=== PATIENT | male | born 1935 | race Caucasian/White ===

== ENCOUNTER 2023-11-16 13:39 | Outpatient (OUT) | payer MEDICARE, MEDICAID, SELFPAY ==
--- NOTE | 2023-11-16 14:33 | CA_ITS ---
Patient Name: JAY ASH MR#: [id number] : 1935 Exam Date: 11/16/2023 Ordering Doctor: DR Cholo Nicolas . ECHOCARDIOGRAM REPORT PROCEDURE: CA ECHO DOPPLER COMPLETE INDICATIONS: CAD, [place] with PTCA, hypertension COMPARISON: None. DESCRIPTION: COMPLETE ECHOCARDIOGRAM Real-time transthoracic echocardiography with 2D, M-mode, spectral and color flow Doppler performed. QUALITY: Technical quality was good. 71 , 219#, BSA 2.19 m2 LEFT VENTRICLE: Normal chamber size. Mild concentric left ventricular hypertrophy. Normal systolic function. LV EF: Normal left ventricular ejection fraction, (65%). DIASTOLIC: Mild diastolic dysfunction. ATRIAL SEPTUM: Visually appears intact LEFT ATRIUM: Mildly dilated. RIGHT ATRIUM: Normal chamber size. RIGHT VENTRICLE: Normal chamber size. Normal right ventricular systolic function. TRICUSPID VALVE: Normal mobility and thickness. No stenosis with trivial regurgitation. No evidence of pulmonary hypertension. RVSP 25 mmHg MITRAL VALVE: Normal mobility and thickness. No evidence of mitral valve stenosis. Mild mitral annular calcification. No mitral regurgitation. AORTIC VALVE: Normal trileaflet appearance. No visible sclerosis. Normal leaflet mobility. No evidence of aortic valve stenosis. No aortic regurgitation. AORTIC ROOT: Normal diameter and appearance. PULMONIC VALVE: Normal thickness and mobility. No stenosis. No regurgitation. PERICARDIUM: No evidence of pericardial effusion. IVC: Not well visualized. PLEURA: CONCLUSION: 1. Mild concentric left ventricular hypertrophy with normal systolic function. LVEF is 65%. 2. Normal right ventricular size and systolic function. 3. No significant valvular dysfunction. 4. Mild diastolic dysfunction. 5. Normal right-sided pressures. Adult Echocardiography Procedure Report Left Ventricle LVEDD (3.7 - 5.6 cm): 4.79 cm LVESD (2.2 - 4.0 cm): 2.51 cm LVIVS thickness (0.6 - 1.2 cm): 1.28 cm LVPW thickness (0.5 - 1.0 cm): 1.22 cm LVOT Max Gradient: 3 mm[Hg] Peak Velocity (LVOT): 92.50 cm/s Mean Velocity (LVOT): 58.20 cm/s LVOT Diameter 2.20 cm Left Ventricular Ejection Fraction: 65% Left Atrium LA Volume Index (2D A2C): 92784 mm3 Left Atrium Systolic Dimension: 4.40 cm Mitral Valve MV E to A Ratio: 0.60 Mitral Valve A-Wave Peak Velocity: 126.00 cm/s Mitral Valve E-Wave Peak Velocity: 78.00 cm/s Cardiovascular Orifice Area: 1.30 cm2 Right Ventricle Aorta AO Root Diam: 3.20 cm Aortic Valve AoV Area (Peak Kd): 3.41 cm2 AoV Area (VTI): 3.22 cm2 Peak Velocity(Antegrade Flow): 103.00 cm/s Peak Gradient(Antegrade Flow): 4 mm[Hg] Mean Velocity(Antegrade Flow): 68.90 cm/s Mean Gradient(Antegrade Flow): 2 mm[Hg] Velocity Time Integral: 24.80 cm Tricuspid Valve Peak Velocity (Regurgitant Flow): 235.00 cm/s Peak Velocity: 64.20 cm/s Pulmonic Valve Peak Velocity: 116.00 cm/s, 113.00 cm/s Peak Gradient: 5 mm[Hg] Right Atrium Dictated by: Hilton Hebert M.D. on 11/16/2023 at 18:03 Approved by: Hilton Hebert M.D. on 11/16/2023 at 18:05
== END 2023-11-16 13:40 | disposition home or self-care (01) ==
LOC: CARD 13:39
PROVIDERS: PCP Family Medicine; Visit Provider Family Medicine
DX: I25.10 Atherosclerotic heart disease of native coronary artery without angina pectoris (principal)
CPT/HCPCS: 93306

== ENCOUNTER 2024-03-30 17:24 | Emergency (ER) | payer MEDICARE, SELFPAY ==
[2024-03-30 17:32] VITALS: BP 180/86; PULSE 76; TEMP 36.7; O2SAT 99; BMI 29.2
--- OUTSIDE RECORDS SUMMARY | 2024-03-30 17:40 | XMS_ITS | CCD ---
Author Organization [facility] Care Team Providers Care Executive Pastry Chef Name Role Phone Moon Harper Unavailable Unavailable Unavailable Moon aHrper Primary Care Physician Lenny Armando Unavailable Ada Barnes Unavailable MD Moon Harper Primary Care Provider TYLER Starks Other Provider Unavailable DO Rowena Swanson Other Provider MD Alka Costello Other Provider MD Macario Corona Other Provider MD Sadie Parr Other Provider MD Robert Dav[place] Other Provider RAMAN Bill Other Provider MD Naila Modi Other Provider MD Ludivina Solitarioammed [facility] Other Provider MD Charity Mg Other Provider MD Shobha Junior Admit Provider MD Patsy Smith Attending Provider MD Christ Ansari Emergency Provider [phone] MD Lidia Borja Admit Provider MD Lidia Borja Attending Provider MD Moon Harper Primary Care Provider [phone] MD Macario Corona Attending Provider MD Moon Harper Primary Care Provider [phone] MD Macario Corona Attending Provider MEREDITH ., DR MUSTAFA Consulting Unavailable HOY ., DR MUSTAFA Attending Unavailable HOY ., DR MUSTAFA Admitting Unavailable HOY ., DR MUSTAFA Primary Care Unavailable HOY ., DR MUSTAFA Primary Care Unavailable HOY ., DR MUSTAFA Consulting Unavailable HOY ., DR MUSTAFA Attending Unavailable HOY ., DR MUSTAFA Admitting Unavailable HOY ., DR MSUTAFA Primary Care Unavailable HOY ., DR MUSTAFA Consulting Unavailable HOY ., DR MUSTAFA Attending Unavailable HOY ., DR MUSTAFA Admitting Unavailable HOY ., DR MUSTAFA Primary Care Unavailable HOY ., DR MUSTAFA Attending Unavailable HOY ., DR MUSTAFA Admitting Unavailable HOY ., DR MUSTAFA Primary Care Unavailable HAY ., DR KHAN Admitting Unavailable HAY ., DR KHAN Consulting Unavailable HAY ., DR KHAN Attending Unavailable MARTY KHAN Consulting Unavailable MACARIO LA Consulting Unavailable MONICO GREEN Consulting Unavailable MACY STUBBS Admitting Unavailable MACY STUBBS Attending Unavailable ROGER ., OCTAVIO SAUCEDO Consulting Unavailkingston e HOY ., DR MUSTAFA Primary Care Unavailable NAN LYNNE Consulting Unavailable HOY ., DR MUSTAFA Primary Care Unavailable RIOS ., DR ANTHONY Vital Admitting Unavailable RIOS ., DR ANTHONY Vital Consulting Unavailable RIOS ., DR ANTHONY Vital Attending Unavailable HOY ., DR MUSTAFA Primary Care Unavailable HOY ., DR MUSTAFA Consulting Unavailable HOY ., DR MUSTAFA Attending Unavailable HOY ., DR MUSTAFA Admsamy Unavailable HOY ., DR MUSTAFA Primary Care Unavailable HOY ., DR MUSTAFA Consulting Unavailable HOY ., DR MUSTAFA Attending Unavailable FRANCOISY ., DR MUSTAFA Admsamy Unavailable MD Moon Harper Primary Care Provider [phone] MD Macario Corona Attending Provider MD Moon Harper Primary Care Provider [phone] MD Macario Corona Attending Provider MD Moon Harper Primary Care Provider [phone] MD Macario Corona Attending Provider Meredith, Dr. Moon Polo Primary Care Unavail able Meredith, Dr. Moon Polo Primary Care Unavail able Meredith, Dr. Moon Polo Primary Care Unavail able Meredith, Dr. Moon Polo Primary Care Unavail able Meredith, Dr. Moon Polo Primary Care Unavail able Meredith, Dr. Moon Polo Primary Care Unavail able Meredith, Dr. Moon Polo Primary Care Unavail able Schilling, Gisele Attending Unavailable Schilling, Gisele Referring Unavailable Meredith, Dr. Moon Polo Primary Care Unavail able Schilling, Gisele Attending Unavailable Schilling, Gisele Referring Unavailable Meredith, Dr. Moon Polo Primary Care Unavail able Schilling, Gisele Attending Unavailable Schilling, Gisele Referring Unavailable Meredith, Dr. Moon Polo Primary Care Unavail able Meredith, Dr. Moon Polo Primary Care Unavail able Meredith, Dr. Moon Polo Primary [facility] Unavail able MD Moon Harper Primary Care Provider MD Macario Corona Attending Provider Moon Harper MD Primary Care Provider MACARIO SWANSON Attending Unavailable MOON HARPER Primary Care Unavailable MD Moon Harper Primary Care Provider [phone] MD Macario Corona Attending Provider MD Moon Harper Primary Care Provider [phone] MD Macario Corona Attending Provider MACARIO SWANSON Referring Unavailable MOON HARPER Primary Care Unavailable Macario Corona Admitting Unavail able Hoy, Moon M Primary Care Unavailable Macario Corona Attending Unavail able Macario Corona Admitting Unavail able Hoy, Moon M Primary Care Unavailable Macario Corona Attending Unavail able Macario Corona Admitting Unavail able Hoy, Moon M Primary Care Unavailable Macario Corona Attending Unavail able Macario Corona Admitting Unavail able Hoy, Moon M Primary Care Unavailable Macario Corona Attending Unavail able Macario Corona Admitting Unavail able Hoy, Moon M Primary Care Unavailable Macario Corona Attending Unavail able Macario Corona Attending Unavail able Moon Harper M Primary Care Unavailable KendallzacknMacario Admitting Unavail able Rohit Harperlas M Primary Care Unavailable Macario Corona Admitting Unavail able Macario Corona Attending Unavail able KendalluinnMacario Admitting Unavail able Moon Harper M Primary Care Unavailable Macario Corona Attending Unavail able TayanMacario Admitting Unavail able Rohit Harperlas M Primary Care Unavailable Macario Corona Attending Unavail able TayanMacario Admitting Unavail able Moon Harper M Primary Care Unavailable Macario Corona Attending Unavail able Allergies Allergy Classification Reported Allergen(s) Allergy Type Date of Onset Reaction(s) Facility (20 sources) Ciprofloxacin; Translations: [Cipro] Drug Allergy 3 [facility] (20 sources) Penicillins; Translations: [Penicillins] Allergy to drug (finding) 2 Rash, Unknown Reaction [facility] (4 sources) Bee/Wasp/Ant venom Drug allergy hives, Unknown [facility] [employer] Other (1 source) Isopropyl Alcohol; Translations: [isopropyl alcohol topical] Drug Allergy intolerance [facility] Comment on above: Pt recovering alcoho lic. (5 sources) Penicillin; Translations: [penicillin] Drug Allergy hives, Unknown [employer] Other (3 sources) Alcohol Propensity to adverse reactions Unknown [facility] [employer] Other (13 sources) bee venom protein (honey bee); Translations: [bee venom protein (honey bee)] Allergy to substance 2 Swelling of Lip/Tongue/Thr oat [facility] (3 sources) Penicillins Drug Allergy 3 [facility] Work Phone: (3 sources) Ciprofloxacin; Translations: [CIPROFLOXACIN] Drug Allergy 2 [facility] 3 Repository (1 source) Penicillins Drug allergy (disorder) 2 [facility] Repository (1 source) alcohol Drug allergy (disorder) 2 [facility] Repository Medications Current Medications Medication Drug Class(es) Dates Sig (Normalized) Sig (Original) acetaminophen 500 mg oral tablet (11 sources) Start: 06-06-2019 take 500 mg by mouth three times daily as needed for pain acetaminophen 500 mg, Oral, TID, PRN as needed for pain, Refills(s) 0 Start Date: 06/06/19 Status: Ordered acetaminophen (T ylenol Extra Strength) 500 mg tablet TAKE 1 TABLET EVERY 4 TO 6 HOURS NEEDED. 0 Active amLODIPine Benzoate (1 source) amLODIPine Benzo ate Active apixaban 5 mg oral tablet (15 sources) Factor Xa Inhibitor Start: 05-08-20 End: 08-11-20 23 take 1 tablet by mouth twice daily Apixaban (Eliquis) 5 mg Tablet Active 5 MG PO Twice daily May 07, 2022 11:00pm Aspir-81 (3 sources) Aspir-81 Active atorvastatin 40 mg oral tablet (20 sources) HMG-CoA Reductase Inhibitor Start: 10-02-20 take 1 tablet by mouth once daily at bedtime atorvastatin (Lipitor) 40 mg tablet Take 1 tablet (40 mg) by mouth once daily at bedtime. 0 10/02/2021 Active celecoxib 200 mg oral capsule (20 sources) Nonsteroidal Anti-inflammatory Drug Start: 05-03-20 take 1 capsule by mouth once daily celecoxib (CeleBREX) 200 mg capsule Take 1 capsule (200 mg) by mouth once daily. 0 01/12/2022 Active Celecoxib 200 MG Oral Capsule Quantity: 0 Refills: 0 Ordered: 31-Oct-2021 DO Active cetirizine hydrochloride 10 mg oral tablet (20 sources) Histamine-1 Receptor Antagonist Start: 06-06-2019 take 1 tablet by mouth once daily Cetirizine (Zyrtec) 10 mg Tablet Active 10 MG PO Daily April 10, 2022 11:00pm take 1 capsule by mouth once noa ly ZyrTEC Allergy 10 MG 1 capsule Orally Once a day Active Cetirizine HCl - 10 MG Oral Tablet Quantity: 0 Refills: 0 Ordered: 31-Oct-2021 DO Active clopidogrel 75 mg oral tablet (20 sources) P2Y12 Platelet Inhibitor Start: 10-02-2021 End: 08-11-2023 take 75 mg by mouth once daily Clopidogrel Active 75 MG PO Daily May 07, 2022 11:00pm Dextromethorphan (1 source) Uncompetitive V-cjbjkz-E-aspartat e Receptor Antagonist, Sigma-1 Agonist Start: 11-01-2019 dextromethorphan 20 mg/15 mL oral syrup 20 mg = 15 mL, Oral, prn cough Start Date: 11/01/19 Status: Ordered Econazole / Triamcinolone (11 sources) Azole Antifungal, Corticosteroid Start: 04-11-2022 Econazole-Triamcinol one Active 0 .ROUTE .COMPLEX April 10, 2022 11:00pm 1%-0.1% combo pack, 1 package topically per package directions PRN Start: 04-11-2022 Econazole-Tria mcinolone Active 0 .ROUTE .COMPLEX April 11, 2022 12:00am 1%-0.1% combo pack, 1 package topically per package directions PRN EPINEPHrine (20 sources) alpha-Adrenergic Agonist, beta-Adrenergic Agonist, Catecholamine Start: 06-06-2019 Epipen use as directed, Refills(s) 0 Start Date: 06/06/19 Status: Ordered EPINEPHrine 0.3 mg/0.3 mL injection syringe USE DIRECTED. 0 Active EpiPen Active furosemide 20 mg oral tablet (20 sources) Loop Diuretic Start: 05-04-2022 End: 08-10-2023 take 1 tablet by mouth once daily furosemide (Lasix) 20 mg tablet Take 1 tablet (20 mg) by mouth once daily. 0 05/04/2022 Active gabapentin 100 mg oral capsule (1 source) Anti-epileptic Agent Start: 12-12-2022 End: 08-11-2023 gabapentin (Neurontin) 100 mg capsule Lactobacillus (1 source) Lactobacillus Ac tive lactobacillus acidophilus 460 mg oral capsule (20 sources) Start: 04-11-2022 Lactobacillus Acidophilus (Florajen Acidophilus) 20 billion cell Capsule Active 100 MG PO Daily April 10, 2022 11:00pm Start: 11-01-2019 take 1 capsule by mo uth once daily Florajen oral capsule 1 cap(s), Oral, Daily Start Date: 11/01/19 Status: Ordered take 1 capsule by mo uth once daily Florajen Acidophilus Oral Capsule TAKE 1 CAPSULE Daily Quantity: 0 Refills: 0 Ordered: 12-May-2022 DO Active lisinopril 40 mg oral tablet (20 sources) Angiotensin Converting Enzyme Inhibitor Start: 05-03-2019 End: 08-11-2023 take 40 mg by mouth once daily Lisinopril Active 40 MG PO Daily May 02, 2019 11:00pm mupirocin 0.02 mg/mg topical ointment (15 sources) RNA Synthetase Inhibitor Antibacterial Start: 04-03-2022 Mupirocin 2 % 1 application Externally Three times a day for 7 days Mar, Active Start: 07-07-2021 Mupirocin 2 % External Ointment APPLY TO THE AFFECTED AREA(S) with a Q-TIP TWICE DAILY FOR 7 DAYS Quantity: 22 Refills: 0 Ordered: 07-Jul-2021 DO Start : 07-Jul-2021 Active Start: 07-07-2021 Mupirocin 2 % 1 application with Qtip to affected area Externally 2 times a day for 7 days Jun, Active nitroglycerin 0.4 mg sublingual tablet (7 sources) Nitrate Vasodilator nitroglyceri n (Nitrostat) 0.[address] 1 tablet (0.4 mg) under the tongue every 5 minutes if needed for chest pain. 0 Active omeprazole 20 mg oral tablet (20 sources) Proton Pump Inhibitor Start: 9 take 20 mg by mouth once daily Prilosec 20 mg, Oral, Daily, Refills(s) 0 Start Date: 06/06/19 Status: Ordered take 1 capsule by mouth once noa ly omeprazole (PriLOSEC) [address] capsule Take 1 capsule (20 mg) by mouth once daily. 0 Active Omeprazole Magne sium 20 MG Oral Tablet Delayed Release Quantity: 0 Refills: 0 Ordered: 31-Oct-2021 DO Active Omeprazole Magnesium (Prilosec Otc) 20 mg Tablet,Delayed Release (Dr/Ec) (11 sources) Start: 05-03-2019 take 1 tablet by mouth once daily Omeprazole Magnesium (Prilosec Otc) 20 mg Tablet,Delayed Release (Dr/Ec) Active 20 MG PO Daily May 02, 2019 11:00pm Start: 05-03-2019 take 1 tablet by jamir th once daily Omeprazole Magnesium (Prilosec Otc) 20 mg Tablet,Delayed Release (Dr/Ec) Active 20 MG PO Daily May 03, 2019 12:00am sucralfate 1000 mg oral tablet (3 sources) Aluminum Complex Start: 08-11-2023 End: 08-10-2024 take 1 tablet by mouth once daily sucralfate (Carafate) 1 gram tablet Indications: Carotid atherosclerosis, unspecified laterality Take 1 tablet (1 g) by mouth once daily. 90 tablet 3 08/11/2023 08/10/2024 Active valsartan 320 mg oral tablet (12 sources) Angiotensin 2 Receptor Shaun Start: 08-20-2023 take 1 tablet by mouth once daily valsartan (Diovan) 320 mg tablet Indications: Benign essential hypertension Take 1 tablet (320 mg) by mouth once daily. 90 tablet 0 08/20/2023 Active Start: 08-11-2023 take 1 tablet by jamir th once daily valsartan (Diovan) 320 mg tablet Indications: Benign essential hypertension Take 1 tablet (320 mg) by mouth once daily. 7 tablet 0 08/11/2023 Active Start: 05-21-2022 End: 08-11-2023 take 1 tablet by mouth once daily valsartan (Diovan) 320 mg tablet Take 1 tablet (320 mg) by mouth once daily. 0 05/21/2022 08/11/2023 Discontinued (Reorder) vitamin b12 1 mg/ml injectable solution (20 sources) Vitamin B12 Start: 08-05-2021 inject 1 mL by intramuscular injection every month cyanocobalamin (Vitamin B-12) 1,000 mcg/mL injection INJECT 1 (ONE) ml INTRAMUSCULARLY once a month 0 08/05/2021 Active Start: 05-03-2019 inject 1000 ug by in tramuscular injection every month Cyanocobalamin (Vitamin B-12) Active 1000 MCG IM every month May 02, 2019 11:00pm Cyanocobalamin A ctive Completed/Discontinued Medications Medication Drug Class(es) Dates Sig (Normalized) Sig (Original) amLODIPine 10 mg oral tablet (20 sources) Dihydropyridine Calcium Channel Shaun Start: 05-26-2021 End: 08-11-2023 take 1 tablet by mouth once daily amLODIPine Besylate 10 MG Oral Tablet TAKE 1 TABLET DAILY DIRECTED. Quantity: 30 Refills: 11 Ordered: 01-Jan-2022 Addy Alas MD Start : 26-May-2021 Active Start: 09-26-2020 take 1 tablet by jamir th once daily amLODIPine Besylate 5 MG Oral Tablet TAKE 1 TABLET BY MOUTH ONCE DAILY Quantity: 30 Refills: 0 Ordered: 16-Oct-2021 DO Start : 26-May-2021 Active Start: 05-03-2019 take 10 mg by mouth once daily Amlodipine Active 10 MG PO Daily May 02, 2019 11:00pm [facility] Active aspirin 81 mg delayed release oral tablet (20 sources) Platelet Aggregation Inhibitor, Nonsteroidal Anti-inflammatory Drug Start: 12-09-2022 take 1 tablet by mouth once daily Aspirin 81 MG Oral Tablet Delayed Release TAKE 1 TABLET DAILY. Quantity: 90 Refills: 3 Ordered: 09-Dec-2022 Macario Swanson DO Start : 09-Dec-2022 Active Start: 04-12-2022 take 1 tablet by jamir th once daily Aspirin (Children's Aspirin) 81 mg Tablet,Chewable Active 81 MG PO Daily April 11, 2022 11:00pm Start: 12-25-2021 take 1 tablet by jamir th once daily aspirin 81 mg Oral EC Tab 81 mg = 1 tab(s), Oral, Daily, Refills(s) 0 Start Date: 12/25/21 Status: Ordered Aspirin 81 MG Or al Tablet Delayed Release Quantity: 0 Refills: 0 Ordered: 31-Oct-2021 DO Active betamethasone 0.5 mg/ml / clotrimazole 10 mg/ml topical lotion (12 sources) Azole Antifungal, Corticosteroid Start: 09-08-2021 Clotrimazole-Betamethasone 1-0.05 % External Lotion APPLY TO THE AFFECTED AREA(S) TWICE DAILY Quantity: 30 Refills: 0 Ordered: 26-Oct-2021 DO Start : 08-Sep-2021 Active cefdinir 300 mg oral capsule (12 sources) Cephalosporin Antibacterial Start: 07-22-2021 take 2 capsules by mouth once daily Cefdinir 300 MG Oral Capsule TAKE 2 CAPSULES BY MOUTH once DAILY Quantity: 20 Refills: 0 Ordered: 22-Jul-2021 DO Start : 22-Jul-2021 Active cephalexin 500 mg oral capsule (1 source) Cephalosporin Antibacterial Start: 04-01-2022 take 2 capsules by mouth twice daily Cephalexin 500 MG Oral Capsule TAKE 2 CAPSULES BY MOUTH TWICE DAILY FOR 10 DAYS Quantity: 40 Refills: 0 Ordered: 01-Apr-2022 DO Start : 01-Apr-2022 Complete Cyanocobalamin 100 MCG/ML SOLN (14 sources) Cyanocobalamin 1 00 MCG/ML SOLN once monthly Quantity: 0 Refills: 0 Ordered: 02-Oct-2021 DO Active cyanocobalamin 1000 mcg/mL Inj (1 source) Start: 07-09-2020 inject 1 mL by intramuscular injection every month cyanocobalamin 1000 mcg/mL Inj 1,000 microgram = 1 mL, IntraMuscular, qMonth, # 10 mL, Refills(s) 3, Pharmacy: [email or web address], 177, cm, 05/31/20 8:16:00 EDT, Height/Length Dosing, 98.6, kg, 05/31/20 8:16:00 EDT, Weight Dosing Start Date: 07/09/20 Status: Ordered diclofenac sodium 0.01 mg/mg topical gel (20 sources) Nonsteroidal Anti-inflammator y Drug Start: 07-28-2021 Diclofenac Sodium 1 % External Gel USE DIRECTED Quantity: 0 Refills: 0 Ordered: 28-Jul-2021 DO Start : 28-Jul-2021 Active Start: 11-13-2020 diclofenac sod ium 1 % kit APPLY TO THE AFFECTED AREA(S) DAILY as directed 0 11/13/2020 Active Start: 11-13-2020 Diclofenac Sod ium 1 % External Gel APPLY TO THE AFFECTED AREA(S) DAILY as directed Quantity: 100 Refills: 0 Ordered: 28-Jul-2021 DO Start : 13-Nov-2020 Active Start: 11-02-2019 diclofenac Top 1% gel 1 sruthi, Topical, BID for pain, 60 gram, Refill(s) 1, apply to foot & knee, [facility], 177, cm, 11/01/19 15:36:00 EST, Height/Length Measured, 99.5, kg, 11/01/19 15:36:00 EST, Weight Measured Start Date: 11/02/19 Status: Ordered Start: 05-03-2019 Diclofenac Sod ium Active 1 APPLICATOR TOPICAL Four times daily May 02, 2019 11:00pm 24 hr metoprolol succinate 25 mg extended release oral tablet (20 sources) beta-Adrenergic Shaun Start: 11-26-2022 take 0.5 tablet by mouth once daily Metoprolol Succinate ER 25 MG Oral Tablet Extended Release 24 Hour TAKE 0.5 TABLET Daily Quantity: 45 Refills: 3 Ordered: 27-Nov-2022 Macario Corona MD Start : 26-Nov-2022 Active dose decreased Start: 05-07-2022 take 2 tablets by mo [facility] once daily Metoprolol Succinate (Toprol Xl) 50 mg tablet extended release 24 hr Active 25 MG PO Daily May 07, 2022 11:33am Start: 04-12-2022 End: 08-11-2023 take 1 tablet by mouth once daily Metoprolol Succinate (Toprol Xl) 50 mg tablet extended release 24 hr Discontinued 50 MG PO Daily April 11, 2022 11:00pm May 07, 2022 11:33am Start: 11-07-2021 End: 08-11-2023 take 0.5 tablet by mouth twice daily Metoprolol Tartrate 25 MG Oral Tablet TAKE 0.5 TABLET Twice daily Quantity: 30 Refills: 3 Ordered: 10-Nov-2021 Addy Alas MD Start : 07-Nov-2021 Active 11/10/21- dose adjusted. Start: 11-07-2021 take 1 tablet by [facility] twice daily Metoprolol Tartrate 25 MG Oral Tablet TAKE 1 TABLET TWICE DAILY. Quantity: 60 Refills: 1 Ordered: 20-Feb-2022 Addy Alas MD Start : 07-Nov-2021 Active 11/10/21- dose adjusted. metoprolol succi dhaval XL (Toprol-XL) 25 mg 24 hr tablet 12.5 tablets (312.5 mg) once daily. 0 Active oxybutynin chloride 5 mg oral tablet (1 source) Cholinergic Muscarinic Antagonist Start: 05-20-2022 Oxybutynin Chloride 5 MG Oral Tablet Quantity: 60 Refills: 0 Ordered: 20-May-2022 DO Start : 20-May-2022 Complete raNITIdine 150 mg oral tablet (14 sources) Histamine-2 Receptor Antagonist Start: 05-03-2019 End: 04-11-2022 take 1 tablet by mouth once daily Ranitidine Hcl (Zantac) 150 mg Tablet Discontinued 150 MG PO Daily May 02, 2019 11:00pm April 11, 2022 12:32am ticagrelor 90 mg oral tablet (11 sources) Start: 04-12-2022 End: 05-08-2022 take 1 tablet by mouth twice daily Ticagrelor (Brilinta) 90 mg Tablet Discontinued 90 MG PO Twice daily 60 April 11, 2022 11:00pm May 08, 2022 12:56pm triamcinolone acetonide 1 mg/ml topical cream (20 sources) Corticosteroid Start: 02-26-2021 Triamcinolone Acetonide 0.1 % External Cream APPLY TO THE AFFECTED AREA(S) on trunk TWICE DAILY NEEDED for flares for 2 (TWO) weeks Quantity: 454 Refills: 0 Ordered: 26-Feb-2021 DO Start : 26-Feb-2021 Active Start: 02-26-2021 Triamcinolone Acetonide 0.1 % External Cream USE DIRECTED Quantity: 0 Refills: 0 Ordered: 26-Feb-2021 DO Start : 26-Feb-2021 Active Start: 12-07-2019 triamcinolone Top 0.1% Crm 1 sruthi, Topical, BID, 454 gram, Refill(s) 1, to affected area, [facility] [place],, 177, cm, 12/04/19 10:28:00 EST, Height/Length Measured, 98.6, kg, 12/04/19 10:28:00 EST, Weight Measured Start Date: 12/07/19 Status: Ordered triamcinolone (K enalog) 0.1 % cream USE DIRECTED. 0 Active Triamcinolone Ac etonide 0.1 % External Cream USE DIRECTED. 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] Onset: 2 04-12-2022 Chronic Cardiac dysrhythmias (20 sources) Paroxysmal supraventricular tachycardia; Translations: [Paroxysmal supraventricular tachycardia] Onset: 3 05-08-2022 Chronic Conditions associated with dizziness or vertigo (20 sources) Dizziness; Translations: [Dizziness and giddiness] Onset: 2 Episodic Conduction disorders (13 sources) Mobitz type II atrioventricular block; Translations: [Atrioventricular block, second degree] 04-11-2022 Chronic Coronary atherosclerosis and other heart disease (20 sources) Coronary arteriosclerosis; Translations: [Atherosclerotic heart disease of [place] coronary artery without angina pectoris] Onset: 3 05-08-2022 Chronic Coronary atherosclerosis and other heart disease (14 sources) Stented coronary artery; Translations: [Presence of coronary angioplasty implant and graft] Onset: 2 05-07-2022 Episodic Disorders of lipid metabolism (20 sources) Hyperlipidemia; Translations: [Hyperlipidemia, unspecified] Onset: 2 04-12-2022 Chronic Diverticulosis and diverticulitis (4 sources) Diverticula of intestine; 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] 06-08-2019 Chronic Esophageal disorders (16 sources) Gastroesophageal reflux disease; Translations: [Gastroesophageal reflux disease with hiatal hernia] 06-08-2019 Chronic Essential hypertension (20 sources) Benign essential hypertension; Translations: [Benign essential hypertension] Onset: 2 06-08-2019 Chronic Heart valve disorders (1 source) Heart murmur 11-01-2019 Episodic Hemorrhoids (3 sources) Hemorrhoids; Translations: [Unspecified hemorrhoids] Episodic Nonspecific chest pain (13 sources) Chest pain; Translations: [Chest pain, unspecified] 05-07-2022 Episodic Occlusion or stenosis of precerebral arteries (20 sources) Carotid artery stenosis; Translations: [Occlusion and stenosis of carotid artery without mention of cerebral infarction] Onset: 1 Resolved: 1 Chronic Osteoarthritis (1 source) Degenerative joint disease involving multiple joints 11-01-2019 Chronic Other aftercare (10 sources) Drug therapy finding; Translations: [Long-term (current) use of anticoagulants] Onset: 3 08-09-2023 Episodic Other circulatory disease (11 sources) Presence of other cardiac implants and grafts; Translations: [Implantable loop recorder present] Onset: 3 08-11-2023 Chronic Other circulatory disease (3 sources) Carotid bruit; Translations: [Other specified symptoms and signs involving the circulatory and respiratory systems] 08-11-2023 Episodic Other circulatory disease (4 sources) Other specified symptoms and signs involving the circulatory and respiratory systems; Translations: [Other specified symptoms and signs involving the circulatory and respiratory systems] Onset: 3 Episodic Other ear and sense organ disorders (1 source) Hearing difficulty 06-08-2019 Chronic Other gastrointestinal disorders (3 sources) Burping; Translations: [Eructation] Episodic Other lower respiratory disease (20 sources) Dyspnea; Translations: [Shortness of breath] Onset: 3 05-07-2022 Episodic Other lower respiratory disease (2 sources) Shortness of breath; Translations: [Shortness of breath] 05-07-2022 Episodic Other nervous system disorders (1 source) Other chronic pain; Translations: [OTHER CHRONIC PAIN] Onset: 2 Chronic Other nutritional; endocrine; and metabolic disorders (3 sources) Body mass index 30+ - obesity; Translations: [Body mass index (BMI) 30.0-30.9, adult] Chronic Other skin disorders (1 source) Inflammatory dermatosis 11-01-2019 Episodic Otitis media and related conditions (1 source) Chronic mastoiditis, unspecified ear; Translations: [CHRONIC MASTOIDITIS UNSPECIFIED EAR] Onset: 2 Chronic Peripheral and visceral atherosclerosis (20 sources) Peripheral vascular disease; Translations: [Peripheral vascular disease, unspecified] Onset: 3 08-09-2023 Chronic Residual codes; unclassified (18 sources) Body mass index 20-24 - normal; Translations: [Body Mass Index between 19-24, adult] Episodic Spondylosis; intervertebral disc disorders; other back problems (2 sources) Other intervertebral disc degeneration, lumbar region; Translations: [Spondylosis without myelopathy or radiculopathy, lumbar region] Onset: 2 Chronic Spondylosis; intervertebral disc disorders; other back problems (1 source) Chronic low back pain 11-01-2019 Episodic Syncope (20 sources) Near syncope; Translations: [Syncope and collapse] Onset: 3 05-08-2022 Episodic Unclassified (11 sources) Recent myocardial infarction; Translations: [Recent myocardial infarction of inferior wall] 05-08-2022 Unclassified (4 sources) CONTACT W/AND (SUSP) EXPOS COVID-19; Translations: [CONTACT W/AND (SUSP) EXPOS COVID-19] Onset: 2 Unclassified (3 sources) LOW BACK PAIN, UNSPECIFIED; Translations: [LOW BACK PAIN, UNSPECIFIED] Onset: 2 Unclassified (3 sources) COUGH, UNSPECIFIED; Translations: [COUGH, UNSPECIFIED] Onset: 2 Unclassified (1 source) Encounter for adjustment and management of other cardiac device; Translations: [Encounter for adjustment and management of other cardiac device] Onset: 3 Past or Other Problems Problem Classification Problem Date Documented Da te Episodic/Chronic Other aftercare (1 source) 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; Translations: [ANIMAL CARE TAKER CURRNT USE ANTICOAGULANTS] Onset: 07-03-2022 Episodic Other aftercare (1 source) Other terminal operator (current) drug therapy; Translations: [OTH ANIMAL CARE TAKER CURRENT DRUG THERAPY] Onset: 07-03-2022 Episodic Other disorders of stomach and duodenum (3 sources) Functional dyspepsia; Translations: [FUNCTIONAL DYSPEPSIA] Onset: 04-10-2022 Episodic Other nutritional; endocrine; and metabolic disorders (10 sources) Obesity; Translations: [Obesity, unspecified] Onset: 08-09-2023 Resolved: 08-11-2023 08-11-2023 Chronic Screening and history of mental health and substance abuse codes (20 sources) Ex-smoker; Translations: [Personal history of tobacco use] Onset: 04-14-2022 Resolved: 08-11-2023 08-11-2023 Episodic Comment on above: Quit smoking 20 year s ago; Superficial injury; contusion (1 source) Abrasion of left upper arm, initial encounter Onset: 04-03-2022 Resolved: 04-03-2022 Episodic Unclassified (1 source) CONTACT W/AND (SUSP) EXPOS COVID-19; Translations: [CONTACT W/AND (SUSP) EXPOS COVID-19] Onset: 01-04-2023 Unclassified (1 source) LOW BACK PAIN, UNSPECIFIED; Translations: [LOW BACK PAIN, UNSPECIFIED] Onset: 08-04-2022 Unclassified (1 source) COUGH, UNSPECIFIED; Translations: [COUGH, UNSPECIFIED] Onset: 07-27-2022 Unclassified (3 sources) Onset: 08-11-2023 08-11-2023 Results Test Name Value Interpretation Reference Range Facility [facility] US CAROTID ARTERY DUPLE X BILATERALon 09-29-2023 [facility] CAROTID ARTERY DUPLEX BILATERAL [address], [address], [place] [address] Vascular Lab Report [facility] US CAROTID ARTERY DUPLEX BILATERAL Patient Name: MACARIO ASH Reading Physician: [id number] Alka Costello MD, [facility] Study Date: 09/29/2023 Ordering Provider: [id number] MACARIO SWANSON MRN/PID: [id number] Fellow: Technologist: Verona Guaman RDCS, T Date of /Age: 5 1935 / years Technologist 2: Gender: M Admission Status: Outpatient Location Performed: [facility] Diagnosis/ICD: Essential primary hypertension-I10; 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; Other specified symptoms and signs involving the circulatory and respiratory systems-R09.89 Indication: Bilateral Carotid Bruit, HTN, Hyperlipidemia, Atrial Fibrillation, CAD, Loop Recorder Implant, [place]-2021 CPT Codes: 19746 Cerebrovascular Carotid Duplex scan complete CONCLUSIONS: Right Carotid: Findings are consistent with less than 50% stenosis of the right proximal internal carotid artery. Laminar flow seen by color Doppler. Right external carotid artery appears patent with no evidence of stenosis. No evidence of hemodynamically significant stenosis of the right common carotid artery. The right vertebral artery is patent with antegrade flow. No changes since 2020. Left Carotid: Findings are consistent with less than 50% stenosis of the left proximal internal carotid artery. Laminar flow seen by color Doppler. Left external carotid artery appears patent with no evidence of stenosis. No evidence of hemodynamically significant stenosis of the left common carotid artery. The left vertebral artery is patent with antegrade flow. No changes since 2020. Imaging & Doppler Findings: Right Plaque Morph: The proximal right internal carotid artery demonstrates irregular, calcified and heterogenous plaque. The distal right common carotid artery demonstrates irregular and calcified plaque. Left Plaque Morph: The distal left common carotid artery demonstrates irregular and calcified plaque. Right Left PSV EDV PSV EDV 72 cm/s 8 cm/s CCA P 88 cm/s 13 cm/s 77 cm/s 13 cm/s CCA M 86 cm/s 14 cm/s 54 cm/s 10 cm/s CCA D 65 cm/s 11 cm/s 91 cm/s 15 cm/s ICA P 65 cm/s 11 cm/s 84 cm/s 14 cm/s ICA M 101 cm/s 23 cm/s 101 cm/s 20 cm/s ICA D 104 cm/s 23 cm/s 111 cm/s ECA 87 cm/s Vertebral 47 cm/s Right Left ICA/CCA Ratio 1.7 1.0 [id number] Alka Costello MD, FACC Final Normal [facility] INSULINon 02-18-2023 Insulin 38.1 uIU/mL Critically high 2.6-24.9 [facility] Comment on above: Performed By: #### I NSULIN #### [facility] [address] [place] [address] Dr. Bal Stallings BNPon 02-17-2023 Natriuretic peptide B (Bld) [Mass/Vol] 766.0 pg/mL Normal <=1,800.0 [facility] Comment on above: Performed By: #### C MP, HSTROPN #### [facility] [address] [place] [address] Dr. Bal Stallings CBC AUTO DIFFon 02-17-2023 BASO # 0.1 103/ul Normal 0.0-0.1 [facility] Comment on above: Performed By: #### C BC #### [facility] [address] [place] [address] Dr. Bal Stallings Basophils/100 WBC (Bld) 0.9 % Normal 0.2-2.0 [facility] Comment on above: Performed By: #### C BC #### [facility] [address] [place] [address] Dr. Bal Stallings EO # 0.1 103/ul Normal 0.0-0.7 [facility] Comment on above: Performed By: #### C BC #### [facility] [address] [place] [address] Dr. Bal Stallings Eosinophils/100 WBC (Bld) 1.4 % Normal 0.9-7.0 [facility] Comment on above: Performed By: #### C BC #### [facility] [address] [place] [address] Dr. Bal Stallings Erythrocyte distribution width (RBC) [Ratio] 13.8 % Normal 11.0-15.0 [facility] Comment on above: Performed By: #### C BC #### [facility] [address] [place] [address] Dr. Bal Stallings Hematocrit (Bld) [Volume fraction] 42.2 % Normal 42.0-54.0 [facility] Comment on above: Performed By: #### C BC #### [facility] [address] [place] [address] Dr. Bal Stallings Hemoglobin (Bld) [Mass/Vol] 13.9 g/dL Critically low 14.0-18.0 [facility] Comment on above: Performed By: #### C BC #### [facility] [address] [place] [address] Dr. Bal Stallings IG # 0.02 10e3/ul Normal 0.00-0.03 [facility] Comment on above: Performed By: #### C BC #### [facility] [address] [place] [address] Dr. Bal Stallings IG % 0.2 % Normal 0.0-0.5 [facility] Comment on above: Performed By: #### C BC #### [facility] [address] [place] [address] Dr. Bal Stallings LYMPH # 2.0 103/ul Normal 1.2-3.8 [facility] Comment on above: Performed By: #### C BC #### [facility] [address] [place] [address] Dr. Bal Stallings Lymphocytes/100 WBC (Bld) 21.1 % Normal 20.5-60.0 [facility] Comment on above: Performed By: #### C BC #### [facility] [address] [place] [address] Dr. Bal Stallings MANUAL DIFF REQ NO Normal [facility] Comment on above: Performed By: #### C BC #### [facility] [address] [place] [address] Dr. Bal Stallings MCH (RBC) [Entitic mass] 30.8 pg Normal 25.9-34.0 [facility] Comment on above: Performed By: #### C BC #### [facility] [address] [place] [address] Dr. Bal Stallings MCHC (RBC) [Mass/Vol] 32.9 g/dL Normal 29.9-35.2 [facility] Comment on above: Performed By: #### C BC #### [facility] [address] [place] [address] Dr. Bal Stallings MCV (RBC) [Entitic vol] 93.6 fL Normal 80.0-94.0 [facility] Comment on above: Performed By: #### C BC #### [facility] [address] [place] [address] Dr. Bal Stallings MONO # 0.5 103/ul Normal 0.3-0.8 [facility] Comment on above: Performed By: #### C BC #### [facility] [address] [place] [address] Dr. Bal Stallings Monocytes/100 WBC (Bld) 5.2 % Normal 1.7-12.0 [facility] Comment on above: Performed By: #### C BC #### [facility] [address] [place] [address] Dr. Bal Stallings NEUT # 6.6 103/ul Critically high 1.4-6.5 [facility] Comment on above: Performed By: #### C BC #### [facility] [address] [place] [address] Dr. Bal Stallings Neutrophils/100 WBC (Bld) 71.2 % Normal 43.0-75.0 [facility] Comment on above: Performed By: #### C BC #### [facility] [address] [place] [address] Dr. Bal Stallings Platelet mean volume (Bld) [Entitic vol] 10.6 fL Normal 9.5-13.5 [facility] Comment on above: Performed By: #### C BC #### [facility] [address] [place] [address] Dr. Bal Stallings PLT 245 103/ul Normal 150-450 [facility] Comment on above: Performed By: #### C BC #### [facility] [address] [place] [address] Dr. Bal Stallings RBC 4.51 106/ul Critically low 4.70-6.10 [facility] Comment on above: Performed By: #### C BC #### [facility] [address] [place] [address] Dr. Bal Stallings WBC 9.3 103/ul Normal 4.0-11.0 [facility] Comment on above: Performed By: #### C BC #### [facility] [address] [place] [address] Dr. Bal Stallings FREE THYROXINE INDEX T7on FTI 2.26 Normal 1.30-4.50 [facility] Comment on above: Performed By: #### C JAZZY, HSTROPN #### [facility] [address] [place] [address] Dr. Bal Stallings T3U 31.0 % Critically low 33.0-40.0 [facility] Comment on above: Performed By: #### C MP, HSTROPN #### [facility] [address] [place] [address] Dr. Bal Stallings T4 [Mass/Vol] 7.30 ug/dL Normal 4.50-12.10 [facility] Comment on above: Performed By: #### C MP, HSTROPN #### [facility] [address] [place] [address] Dr. Bal Stallings GLYCOHEMOGLOBIN A1Con 2022 ADA RECOMMENDATION SEE BELOW Normal [facility] Comment on above: Result Comment: ADA RECOMMENDED LIMIT 4.0 - 6.0 ADA THERAPEUTIC TARGET < 7.0 ACTION SUGGESTED > 7.0 Performed By: #### C JAZZY HSTROPN #### [facility] [address] [place] [address] Dr. Bal Stallings Glucose [Mass/Vol] 140 mg/dL Normal [facility] Comment on above: Performed By: #### C JAZZY HSTROPN #### [facility] [address] [place] [address] Dr. Bal Stallings HbA1c (Bld) [Mass fraction] 6.5 % Critically high 4.5-6.2 [facility] Comment on above: Performed By: #### C JAZZY HSTROPN #### [facility] [address] [place] [address] Dr. Bal Stallings PROF 14(COMP METB)on 023 Albumin [Mass/Vol] 3.9 g/dL Normal 3.4-5.0 [facility] Comment on above: Performed By: #### C VDTBH #### [facility] [address] [place] [address] Dr. Bal Stallings Albumin/Globulin [Mass ratio] 1.2 {ratio} Normal [facility] Comment on above: Performed By: #### C VDTBH #### [facility] [address] [place] [address] Dr. Bal Stallings ALP [Catalytic activity/Vol] 96 U/L Normal 46-116 [facility] Comment on above: Performed By: #### C VDTBH #### [facility] [address] [place] [address] Dr. Bal Stallings ALT [Catalytic activity/Vol] 28 U/L Normal 16-63 [facility] Comment on above: Performed By: #### C VDTBH #### [facility] [address] [place] [address] Dr. Bal Stallings Anion gap [Moles/Vol] 14.7 mmol/L Normal [facility] Comment on above: Performed By: #### C VDTBH #### [facility] [address] [place] [address] Dr. Bal Stallings AST [Catalytic activity/Vol] 15 U/L Normal 15-37 [facility] Comment on above: Performed By: #### C VDTBH #### [facility] [address] [place] [address] Dr. Bal Stallings Bilirubin [Mass/Vol] 0.6 mg/dL Normal 0.2-1.0 [facility] Comment on above: Performed By: #### C VDTBH #### [facility] [address] [place] [address] Dr. Bal Stallings Calcium [Mass/Vol] 9.1 mg/dL Normal 8.5-10.1 [facility] Comment on above: Performed By: #### C VDTBH #### [facility] [address] [place] [address] Dr. Bal Stallings Chloride [Moles/Vol] 102 mmol/L Normal 98-107 [facility] Comment on above: Performed By: #### C VDTBH #### [facility] [address] [place] [address] Dr. Bal Stallings CO2 [Moles/Vol] 25.7 mmol/L Normal 21.0-32.0 [facility] Comment on above: Performed By: #### C VDTBH #### [facility] [address] [place] [address] Dr. Bal Stallings Creatinine [Mass/Vol] 1.33 mg/dL Critically high 0.70-1.30 [facility] Comment on above: Performed By: #### C VDTBH #### [facility] [address] [place] [address] Dr. Bal Stallings EGFR-AF BANGLADESHI >60 Normal >=60 [facility] Comment on above: Performed By: #### C VDTBH #### [facility] [address] [place] [address] Dr. Bal Stallings EGFR-NON AF BANGLADESHI 51 mL/min/1.73m2 Critically low >=60 [facility] Comment on above: Performed By: #### C VDTBH #### [facility] [address] [place] [address] Dr. Bal Stallings Globulin (S) [Mass/Vol] 3.3 g/dL Normal [facility] Comment on above: Performed By: #### C VDTBH #### [facility] [address] [place] [address] Dr. Bal Stallings Glucose [Mass/Vol] 112 mg/dL Critically high 74-106 [facility] Comment on above: Performed By: #### C VDTBH #### [facility] [address] [place] [address] Dr. Bal Stallings Potassium [Moles/Vol] 4.4 mmol/L Normal 3.5-5.1 [facility] Comment on above: Performed By: #### C VDTBH #### [facility] [address] [place] [address] Dr. Bal Stallings Protein [Mass/Vol] 7.2 g/dL Normal 6.4-8.2 [facility] Comment on above: Performed By: #### C VDTBH #### [facility] [address] [place] [address] Dr. Bal Stallings Sodium [Moles/Vol] 138 mmol/L Normal 136-145 [facility] Comment on above: Performed By: #### C VDTBH #### [facility] [address] [place] [address] Dr. Bal Stallings Urea nitrogen [Mass/Vol] 19.0 mg/dL Critically high 7.0-18 .0 [facility] Comment on above: Performed By: #### C VDTBH #### [facility] [address] [place] [address] Dr. Bal Stallings Urea nitrogen/Creatinine [Mass ratio] 14.3 mg/mg Normal [facility] Comment on above: Performed By: #### C VDTBH #### [facility] [address] [place] [address] Dr. Bal Stallings TSHon 02-17-2023 TSH 1.744 uIU/mL Normal 0.358-3.740 [facility] Comment on above: Performed By: #### C VDTBH #### [facility] [address] [place] [address] Dr. Bal Stallings VITAMIN D 25 OHon 02-17-2023 VIT D 25-OH 18.4 ng/mL Normal [facility] Comment on above: Performed By: #### C JAZZY, HSTROPN #### [facility] [address] [place] [address] [address] Bal Stallings VIT D RANGES SEE BELOW Normal [facility] Comment on above: Result Comment: <20 ng/mL Vit D deficient 20 - <30 ng/mL Vit D insufficient 30 - 100 ng/mL Vit D sufficient >100 ng/mL Potential Toxicity Performed By: #### C JAZZY, HSTROPN #### [facility] [address] [place] [address] [address] Bal Stallings Covid-19 PCR ([facility])on 12-17 SARS-CoV-2 (COVID-19) RNA MERLYN+probe Ql (Unsp spec) Not detected Normal NOT DETECTED [facility] Comment on above: Result Comment: This test is not yet approved or cleared by the [place] FDA. When there are no FDA-approved or cleared tests available, and other criteria are met, FDA can make tests available under an emergency access mechanism called an Emergency Use Authorization (EUA). The EUA for this test is supported by the [place] of Health and Human Service's (HHS's) declaration that circumstances exist to justify the emergency use of in vitro diagnostics for the detection and/or diagnosis of the virus that causes COVID-19. This EUA will remain in effect (meaning this test can be used) for the duration of the COVID-19 declaration justifying emergency of IVDs, unless it is terminated or revoked by FDA (after which the test may no longer be used). When diagnostic testing is negative, the possibility of a false negative should be considered in the context of a patient's recent exposures and the presence of clinical signs and symptoms consistent with SARS-CoV-2. Performed By: #### C VDTBH #### [facility] [address] [place] [address] Dr. Bal Stallings INFLUENZA A AND B AGon 01-04 INFLUANEGH SEE BELOW Normal [facility] Comment on above: Result Comment: Nega tive for Flu A protein angiten. Infection due to Flu A cannot be ruled out. Flu A angiten in the sample may be below the detection limit of the test. Performed By: #### I NFLUAB #### [facility] [address] [place] [address] Dr. Bal Stallings INFLUBNEGH SEE BELOW Normal [facility] Comment on above: Result Comment: Nega tive for Flu B protein antigen. Infection due to Flu B cannot be ruled out. Flu B antigen in the sample may be below the detection limit of the test. Performed By: #### I NFLUAB #### [facility] [address] [place] [address] Dr. Bal Stallings INFLUENZA A AG Negative Normal NEGATIVE SEE COMMENT [facility] Comment on above: Performed By: #### I NFLUAB #### [facility] [address] [place] [address] Dr. Bal Stallings INFLUENZA B AG Negative Normal NEGATIVE SEE COMMENT [facility] Comment on above: Performed By: #### I NFLUAB #### [facility] [address] [place] [address] Dr. Bal Stallings SYMPTOMATIC COVID-19 ANTIGEN on 01-04-2023 EUA Statement SEE BELOW Normal [facility] Comment on above: Result Comment: This test has not been FDA cleared or approved, but has been authorized by the FDA under an Emergency Use Authorization (EUA) for use by authorized laboratories certified under CLIA that meet the requirements to perform moderate or high complexity testing. This test has been authorized only for the detection of proteins from SARS-CoV-2, not for any other viruses or pathogens. The emergency use of this test is authorized for the duration of the declaration that circumstances exist justifying the authorization of emergency use of in vitro diagnostic tests for detection and/or diagnosis of Covid-19 under section 564(b)(1) of the Act, 21 U.S.C. 360bbb-3(b)(1), unless the declaration is terminated or authorization is revoked sooner. Performed By: #### C VDTBH #### [facility] [address] [place] [address] Dr. Bal Stallings SARS-CoV-2 (COVID-19) RNA MERLYN+probe Ql (Unsp spec) Negative Normal NEGATIVE [facility] Comment on above: Performed By: #### C [facility] #### [facility] [address] [place], [place] [address] Dr. Bal Stallings Office Visit (Cardiology)on 12-09-2022 Follow-up visit Diagnoses/Problems Assessed 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 (414.01) (I25.10) History of [place] (myocardial infarction) (412) (I25.2) PVD (peripheral vascular disease) (443.9) (I73.9) Carotid atherosclerosis (433.10) (I65.29) Benign hypertension (401.1) (I10) Atrial fibrillation (427.31) (I48.91) Class 1 obesity with body mass index (BMI) of 30.0 to 30.9 in adult (278.00,V85.30) (E66.9,Z68.30) Former smoker (V15.82) (Z87.891) Quit smoking 20 years ago Carotid stenosis (433.10) (I65.29) Orders Carotid stenosis Start: Aspirin 81 MG Oral Tablet Delayed Release; TAKE 1 TABLET DAILY Renew: Atorvastatin Calcium 40 MG Oral Tablet; TAKE 1 TABLET AT BEDTIME Class 1 obesity with body mass index (BMI) of 30.0 to 30.9 in adult Healthy Weight Tips; Status:Complete - Retrospective Authorization; Done: [id number] Some eating tips that can help you lose weight.; Status:Complete - Retrospective Authorization; Done: [id number] SocHx: Former smoker Tobacco Use Screening; Status:Complete; Done: [id number] Unlinked Stop: Eliquis 5 MG Oral Tablet Patient Instructions Please bring all medicines, vitamins, and herbal supplements with you when you come to the office. Prescriptions will not be filled unless you are compliant with your follow up appointments or have a follow up appointment scheduled as per instruction of your physician. Refills should be requested at the time of your visit. Follow up in 8 months ok for Gabapentin from a cardiac stand point and ok for injections in back Stop Plavix end of April Chief Complaint MACARIO ASH is being seen for a 6 month follow-up of. 87-year-old gentleman who returns for follow-up and is overall doing well from a cardiovascular standpoint however he has persistent severe symptomatic arthritis and pain which is driving his blood pressure up. Additionally he is taking care of his at home the psychosocial stress is also driving his blood pressure up as well. He has a history of inferior OK in May 2022 with revascularization of the RCA with 2 large and long drug-eluting stents performed by Dr. Fry with preserved LV function. He has underlying hypertension, obesity and paroxysmal atrial fibrillation diagnosed during his [place] with successful cardioversion but no further episodes since that time. Patient is unable to take his routine arthritis medications due to the combination Eliquis and clopidogrel therapy. Patient has not had any clinical arrhythmias, I maintains a normal rhythm since the event and is not currently on any antiarrhythmic therapy. Blood pressure on my recheck was 160/78. 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 Given the above we will otherwise follow-up in 8 months continue same medications reassess blood pressure in the interim. Surgical History Problems History of Complete colonoscopy History of Facial surgery History of Loop recorder insertion History of Percutaneous transluminal coronary angioplasty Current Meds Medication NameInstruction Atorvastatin Calcium 40 MG Oral TabletTAKE 1 TABLET AT BEDTIME. CeleBREX 200 MG Oral CapsuleTAKE 1 CAPSULE Daily Cetirizine HCl - 10 MG Oral TabletTAKE 1 TABLET DAILY. Clopidogrel Bisulfate 75 MG Oral TabletTAKE 1 TABLET DAILY. Cyanocobalamin 1000 MCG/ML Injection SolutionINJECT 1 (ONE) ml INTRAMUSCULARLY once a month Diclofenac Sodium 1 % External GelAPPLY TO THE AFFECTED AREA(S) DAILY as directed Eliquis 5 MG Oral TabletTAKE 1 TABLET BY MOUTH TWICE DAILY EpiPen 0.3 MG/0.3ML DEVIUSE DIRECTED. Florajen Acidophilus Oral CapsuleTAKE 1 CAPSULE Daily Furosemide 20 MG Oral TabletTAKE 1 TABLET BY MOUTH ONCE DAILY Metoprolol Succinate ER 25 MG Oral Tablet Extended Release 24 HourTAKE 0.5 TABLET Daily Nitroglycerin 0.4 MG Sublingual Tablet SublingualPLACE 1 TABLET UNDER THE TONGUE EVERY 5 MINUTES FOR UP TO 3 DOSES NEEDED FOR CHEST PAIN.CALL 911 IF PAIN PERSISTS. Omeprazole 20 MG Oral Capsule Delayed ReleaseTAKE 1 CAPSULE Daily Triamcinolone Acetonide 0.1 % External CreamUSE DIRECTED. Tylenol Extra Strength 500 MG Oral TabletTAKE 1 TABLET EVERY 4 TO 6 HOURS NEEDED. Valsartan 320 MG Oral TabletTAKE 1 TABLET DAILY. Allergies Medication Cipro Adverse Reaction; Hives;; Recorded By: Mell Winslow; 10/02/2021 11:41:59 AM Penicillins Adverse Reaction; Rash; Recorded By: Mell Winslow; 10/02/2021 11:41:59 AM ciprofloxacin Recorded By: Shira Marquez; 10/31/2021 2:44:43 PM Penicillins Recorded By: Shira Marquez; 10/31/2021 2:44:43 PM Social History Problems Caffeine use (V49.89) (Z78.9) coffee daily Former smoker (more content not included)... Normal [employer] Tobacco Screening.on 023 Adult depression screening assessment No [facility] [employer] DO Work Phone: Fall risk assessment a) No falls within the last year [facility] [employer] DO Work Phone: Tobacco use status CPHS b) No [facility] [facility] Work Phone: Office Visit (Cardiology)on 08-03-2022 Follow-up visit Diagnoses/Problems Assessed 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 (414.01) (I25.10) Atrial fibrillation (427.31) (I48.91) Anticoagulated (V58.61) (Z79.01) Benign essential hypertension (401.1) (I10) Mixed hyperlipidemia (272.2) (E78.2) Class 1 obesity with body mass index (BMI) of 31.0 to 31.9 in adult (278.00,V85.31) (E66.9,Z68.31) Orders Class 1 obesity with body mass index (BMI) of 31.0 to 31.9 in adult Healthy Weight Tips; Status:Complete; Done: 03Aug2022 Patient Instructions Please bring all medicines, vitamins, and herbal supplements with you when you come to the office. Prescriptions will not be filled unless you are compliant with your follow up appointments or have a follow up appointment scheduled as per instruction of your physician. Refills should be requested at the time of your visit. PLAN: Through informed decision making process incorporating patients unique circumstances, the following treatment plan will be initiated: 1. Prescription drug management of cardiovascular medication for efficacy, adherence to treatment, side effect assessment and polypharmacy. Current treatment clinically warranted and to continue without modifications. 2. Return for follow-up; in the interim, contact the office if new symptoms arise. Dr. Swanson as prior Chief Complaint Blood pressure management: my back still hurts MACARIO ASH is being seen for a 4 week follow-up of hypertension. Patient presents to the office today ambulatory with steady gait, accompanied by his . Last evaluated in clinic by myself June 2022. At that time, patient remained hypertensive -there were no changes to medical regimen. He presents today with a list of home blood pressure recordings with systolic most consistently 120-140; his home manual machine was checked in office and is accurate. Here in the office today systolic blood pressure remains 150. He relates this to chronic back pain and excruciating pain due from walking in from the parking lot. He has very rare elevated blood pressure recordings at home when he has having a lot of pain . Today he reports attending cardiac rehab and blood pressure is okay at the beginning . He continues to request interruption in antiplatelet for back injections, both he and remain somewhat argumentative regarding treatment for chronic back pain. The reports that he refuses to have back injections unless they are done any under anesthesia, the does not want him to utilize gabapentin, he recently received a steroid injection from PCP with mild improvement. Have encouraged him to discuss neck step with primary care physician. If he does decide to proceed with epidural injections, he will need to contact Dr. Swanson for approval of interruption due to April 11, 2022 STEMI. He does have an implantable loop recorder; last check in [facility] was in April 2022. I will need to contact [facility] to have report sent to [facility]. He otherwise denies any type of exertional symptoms, no palpitations. Is compliant with medications as listed below. Primary concern is to avoid overtreatment for hypertension that is being driven by back pain. His home machine is accurate, I have reviewed all recorded blood pressures and for the most part they remain optimal. His blood pressure will continue to be evaluated at cardiac rehab. Will not make any adjustments at this time. History of Present Illness The patient presents for follow-up of essential hypertension. The patient states he has been doing well with his blood pressure control since the last visit. Symptoms: denies impaired vision, denies dyspnea, denies chest pain, denies intermittent leg claudication and denies lower extremity edema. Associated symptoms include no headache. Home monitoring: The patient checks his blood pressure regularly. Blood pressure control has been good. Current Meds Medication NameInstruction Atorvastatin Calcium 40 MG Oral TabletTAKE 1 TABLET AT BEDTIME. CeleBREX 200 MG Oral CapsuleTAKE 1 CAPSULE Daily Cetirizine HCl - 10 MG Oral TabletTAKE 1 TABLET DAILY. Clopidogrel Bisulfate 75 MG Oral TabletTAKE 1 TABLET DAILY. Cyanocobalamin 1000 MCG/ML Injection SolutionINJECT 1 (ONE) ml INTRAMUSCULARLY once a month Diclofenac Sodium 1 % External GelAPPLY TO THE AFFECTED AREA(S) DAILY as directed Eliquis 5 MG Oral TabletTAKE 1 TABLET BY MOUTH TWICE DAILY EpiPen 0.3 MG/0.3ML DEVIUSE DIRECTED. Florajen Acidophilus Oral CapsuleTAKE 1 CAPSULE Daily Furosemide 20 MG Oral TabletTAKE 1 TABLET BY MOUTH ONCE DAILY Metoprolol Succinate ER 50 MG Oral Tablet Extended Release 24 HourTAKE 1 TABLET BY MOUTH DAILY Omeprazole 20 MG Oral Capsule Delayed ReleaseTAKE 1 CAPSULE Daily Triamcinolone Acetonide 0.1 % External CreamUSE DIRECTED. Tylenol Extra Strength 500 MG Oral TabletTAKE 1 TABLET EVERY 4 TO 6 HOURS NEEDED. Valsartan 320 MG Or (more content not included)... Normal [employer] Tobacco Screening.on 022 Fall risk assessment a) No falls within the last year [facility] [place] [address] DO Work Phone: Tobacco use status CPHS b) No M [facility] [employer] [place] [address] DO Work Phone: Covid-19 PCR (CVDTB)on 07-18 SARS-CoV-2 (COVID-19) RNA MERLYN+probe Ql (Unsp spec) Not detected Normal NOT DETECTED [facility] Comment on above: Result Comment: This test is not yet approved or cleared by the [place] FDA. When there are no FDA-approved or cleared tests available, and other criteria are met, FDA can make tests available under an emergency access mechanism called an Emergency Use Authorization (EUA). The EUA for this test is supported by the Communications Assistant of Health and Human Service's (HHS's) declaration that circumstances exist to justify the emergency use of in vitro diagnostics for the detection and/or diagnosis of the virus that causes COVID-19. This EUA will remain in effect (meaning this test can be used) for the duration of the COVID-19 declaration justifying emergency of IVDs, unless it is terminated or revoked by FDA (after which the test may no longer be used). When diagnostic testing is negative, the possibility of a false negative should be considered in the context of a patient's recent exposures and the presence of clinical signs and symptoms consistent with SARS-CoV-2. Performed By: #### C JAZZY, PADMINI #### [facility] [address] [place] [address] Dr. Bal Stallings Office Visit (Cardiology)on 07-06-2022 Follow-up visit Diagnoses/Problems Assessed Benign essential hypertension (401.1) (I10) Class 1 obesity with body mass index (BMI) of 31.0 to 31.9 in adult (278.00,V85.31) (E66.9,Z68.31) Orders Class 1 obesity with body mass index (BMI) of 31.0 to 31.9 in adult Healthy Weight Tips; Status:Complete; Done: 06Jul2022 Patient Instructions Please bring all medicines, vitamins, and herbal supplements with you when you come to the office. Prescriptions will not be filled unless you are compliant with your follow up appointments or have a follow up appointment scheduled as per instruction of your physician. Refills should be requested at the time of your visit. PLAN: Through informed decision making process incorporating patients unique circumstances, the following treatment plan will be initiated: 1. Prescription drug management of cardiovascular medication for efficacy, adherence to treatment, side effect assessment and polypharmacy. Current treatment clinically warranted and to continue without modifications. 2. Ok to use TENS unit for back pain 3. Return for follow-up; in the interim, contact the office if new symptoms arise. 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 Ambulatory with steady gait, accompanied by . Last evaluated in clinic by Dr. Swanson May 2022. At that time - Norvas d/c'd d/t edema - improved off treatment lisinopril changed to valsartan, inadvertently did not complete labs. Reports being seen in ER d/t 'belching' and dizziness. No records available. Diagnosis vertigo but has not been using meclizine - no recurrent complaints. He has not been able to tolerate CR d/t chronic low back pain. Will be starting TENS unit. Reports BP is optimal at home, machine has not been calibrated. He has loop recorder. 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 CHADS VASc 4 full dose Eliquis CR 1.17, WT 223 LVEF 55-60 Echo/45% Cath March 2022 History of Present Illness The patient presents for follow-up of essential hypertension. The patient states he has been doing well with his blood pressure control since the last visit. Comorbid Illnesses: coronary artery disease. Symptoms: denies impaired vision, denies dyspnea, denies chest pain, denies intermittent leg claudication and denies lower extremity edema. Associated symptoms include no headache. Home monitoring: The patient checks his blood pressure regularly. Blood pressure control has been good. Medications: the patient is adherent with his medication regimen. He denies medication side effects. Surgical History Problems History of Complete colonoscopy History of Facial surgery History of Loop recorder insertion History of Percutaneous transluminal coronary angioplasty Current Meds Medication NameInstruction Atorvastatin Calcium 40 MG Oral TabletTAKE 1 TABLET AT BEDTIME. CeleBREX 200 MG Oral CapsuleTAKE 1 CAPSULE Daily Cetirizine HCl - 10 MG Oral TabletTAKE 1 TABLET DAILY. Clopidogrel Bisulfate 75 MG Oral TabletTAKE 1 TABLET DAILY. Cyanocobalamin 1000 MCG/ML Injection SolutionINJECT 1 (ONE) ml INTRAMUSCULARLY once a month Diclofenac Sodium 1 % External GelAPPLY TO THE AFFECTED AREA(S) DAILY as directed Eliquis 5 MG Oral TabletTAKE 1 TABLET BY MOUTH TWICE DAILY EpiPen 0.3 MG/0.3ML DEVIUSE DIRECTED. Florajen Acidophilus Oral CapsuleTAKE 1 CAPSULE Daily Furosemide 20 MG Oral TabletTAKE 1 TABLET BY MOUTH ONCE DAILY Meclizine HCl - 25 MG Oral TabletTAKE 1 TABLET EVERY 8 TO 12 HOURS NEEDED Metoprolol Succinate ER 50 MG Oral Tablet Extended Release 24 HourTAKE 1 TABLET BY MOUTH DAILY Omeprazole 20 MG Oral Capsule Delayed ReleaseTAKE 1 CAPSULE Daily Triamcinolone Acetonide 0.1 % External CreamUSE DIRECTED. Tylenol Extra Strength 500 MG Oral TabletTAKE 1 TABLET EVERY 4 TO 6 HOURS NEEDED. Valsartan 320 MG Oral TabletTAKE 1 TABLET DAILY. Allergies Medication Cipro Adverse Reaction; Hives;; Recorded By: Mell Winslow; 10/02/2021 11:41:59 AM Penicillins Adverse Reaction; Rash; Recorded By: Mell Winslow; 10/02/2021 11:41:59 AM ciprofloxacin Recorded By: Shira Marquez; 10/31/2021 2:44:43 PM Penicillins Recorded By: Shira Marquez; 10/31/2021 2:44:43 PM Social History Problems Caffeine use (V49.89) (Z78.9) Caffeine use (V49.89) (Z78.9) coffee daily Former smoker (V15.82) (Z87.891) Quit smoking 20 years ago Former smoker (V15.82) (Z87.891) No alcohol use No illicit drug use Review of Systems Constitutional: not feeling tired. Cardiovascular: no chest pain, no palpitations and no lower extremity edema. Respiratory: no shortness of breath during exertion, no orthopnea and no PND. Vitals Vital Signs Recorded: 06Jul2022 10:05AM Heart Rate70, R Radial [id number], LUE Bpehnrokb72, LUE Height (more content not included)... Normal [employer] Tobacco Screening.on 022 Fall risk assessment a) No falls within the last year [facility] [employer] [place] [address] DO Work Phone: Tobacco use status CPHS b) No M [facility] [employer] [place] [address] DO Work Phone: CBC AUTO DIFFon 07-01-2022 BASO # 0.1 103/ul Normal 0.0-0.1 [facility] Comment on above: Performed By: #### C BC #### [facility] [address] [address] [address] Bal Stallings Basophils/100 WBC (Bld) 1.0 % Normal 0.2-2.0 [facility] Comment on above: Performed By: #### C BC #### [facility] [address] [place] [address] Dr. Bal Stallings EO # 0.1 103/ul Normal 0.0-0.7 [facility] Comment on above: Performed By: #### C BC #### [facility] [address] [place] [address] Dr. Bal Stallings Eosinophils/100 WBC (Bld) 1.5 % Normal 0.9-7.0 [facility] Comment on above: Performed By: #### C BC #### [facility] [address] [place] [address] Dr. Bal Stallings Erythrocyte distribution width (RBC) [Ratio] 13.7 % Normal 11.0-15.0 [facility] Comment on above: Performed By: #### C BC #### [facility] [address] [place] [address] Dr. Bal Stallings Hematocrit (Bld) [Volume fraction] 38.9 % Critically low 42.0-54.0 [facility] Comment on above: Performed By: #### C BC #### [facility] [address] [place] [address] Dr. Bal Stallings Hemoglobin (Bld) [Mass/Vol] 13.1 g/dL Critically low 14.0-18.0 [facility] Comment on above: Performed By: #### C BC #### [facility] [address] [place] [address] Dr. Bal Stallings IG # 0.01 10e3/ul Normal 0.00-0.03 [facility] Comment on above: Performed By: #### C BC #### [facility] [address] [place] [address] Dr. Bal Stallinsg IG % 0.1 % Normal 0.0-0.5 [facility] Comment on above: Performed By: #### C BC #### [facility] [address] [place] [address] Dr. Bal Stallings LYMPH # 2.4 103/ul Normal 1.2-3.8 [facility] Comment on above: Performed By: #### C BC #### [facility] [address] [place] [address] Dr. Bal Stallings Lymphocytes/100 WBC (Bld) 30.0 % Normal 20.5-60.0 [facility] Comment on above: Performed By: #### C BC #### [facility] [address] [place] [address] Dr. Bal Stallings MANUAL DIFF REQ NO Normal [facility] Comment on above: Performed By: #### C BC #### [facility] [address] [place] [address] Dr. Bal Stallings MCH (RBC) [Entitic mass] 31.4 pg Normal 25.9-34.0 [facility] Comment on above: Performed By: #### C BC #### [facility] [address] [place] [address] Dr. Bal Stallings MCHC (RBC) [Mass/Vol] 33.7 g/dL Normal 29.9-35.2 [facility] Comment on above: Performed By: #### C BC #### [facility] [address] [place] [address] Dr. Bal Stallings MCV (RBC) [Entitic vol] 93.3 fL Normal 80.0-94.0 [facility] Comment on above: Performed By: #### C BC #### [facility] [address] [place] [address] Dr. Bal Stallings MONO # 0.6 103/ul Normal 0.3-0.8 [facility] Comment on above: Performed By: #### C BC #### [facility] [address] [place] [address] Dr. Bal Stallings Monocytes/100 WBC (Bld) 7.8 % Normal 1.7-12.0 [facility] Comment on above: Performed By: #### C BC #### [facility] [address] [place] [address] Dr. Bal Stallings NEUT # 4.8 103/ul Normal 1.4-6.5 [facility] Comment on above: Performed By: #### C BC #### [facility] [address] [address] [address] Bal Stallings Neutrophils/100 WBC (Bld) 59.6 % Normal 43.0-75.0 [facility] Comment on above: Performed By: #### C BC #### [facility] [address] [address] [address] Bal Stallings Platelet mean volume (Bld) [Entitic vol] 10.7 fL Normal 9.5-13.5 [facility] Comment on above: Performed By: #### C BC #### [facility] [address] [place] [address] Dr. Bal Stallings PLT 213 103/ul Normal 150-450 [facility] Comment on above: Performed By: #### C BC #### [facility] [address] [place] [address] Dr. Bal Stallings RBC 4.17 106/ul Critically low 4.70-6.10 [facility] Comment on above: Performed By: #### C BC #### [facility] [address] [place] [address] Dr. Bal Stallings WBC 8.1 103/ul Normal 4.0-11.0 [facility] Comment on above: Performed By: #### C BC #### [facility] [address] [place] [address] HEAD WO CONon 07-01-2022 CT HEAD WO CON EXAM: CT HEAD WO CON COMPARISON: None available. CLINICAL INFORMATION: Dizziness, syncope. TECHNIQUE: Axial noncontrast images were obtained through the brain and reconstructed using brain and bone algorithms with sagittal and coronal reconstructions. Dose reduction techniques were achieved by using automated exposure control and/or adjustment of mA and/or kV according to patient size and/or use of iterative reconstruction technique. FINDINGS: BRAIN: No intracranial hemorrhage. No extra-axial collection. No mass or mass effect. No midline shift. Husain-white matter differentiation is preserved. Age-related chronic microvascular ischemic change. CSF: Ventricles and sulci appropriate for age. Basal cisterns are patent. ORBITS: Visualized orbital structures are unremarkable. SINUSES AND MASTOID AIR CELLS: Paranasal sinuses are clear. 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 BONES: No acute osseous abnormality. SOFT TISSUES: Unremarkable. IMPRESSION: 1. No acute intracranial abnormality. 2. 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 Electronically authenticated by: MARTY KHAN Date: 2022-07-01 18:44 Normal [facility] PROF 14(COMP METB)on 022 Albumin [Mass/Vol] 3.9 g/dL Normal 3.4-5.0 [facility] Comment on above: Performed By: #### C MP, HSTROPN #### [facility] [address] [address] [address] Bal Stallings Albumin/Globulin [Mass ratio] 1.3 {ratio} Normal [facility] Comment on above: Performed By: #### C MP, HSTROPN #### [facility] [address] [address] [address] Bal Stallings ALP [Catalytic activity/Vol] 81 U/L Normal 46-116 [facility] Comment on above: Performed By: #### C MP, HSTROPN #### [facility] [address] [address] [address] Bal Stallings ALT [Catalytic activity/Vol] 45 U/L Normal 16-63 [facility] Comment on above: Performed By: #### C MP, HSTROPN #### [facility] [address] [address] [address] Bal Stallings Anion gap [Moles/Vol] 13.8 mmol/L Normal [facility] Comment on above: Performed By: #### C MP, HSTROPN #### [facility] [address] [address] [address] Bal Stallings AST [Catalytic activity/Vol] 27 U/L Normal 15-37 [facility] Comment on above: Performed By: #### C MP, HSTROPN #### [facility] [address] [address] [address] Bal Stallings Bilirubin [Mass/Vol] 0.7 mg/dL Normal 0.2-1.0 [facility] Comment on above: Performed By: #### C MP, HSTROPN #### [facility] [address] [place] [address] Dr. Bal Stallings Calcium [Mass/Vol] 8.9 mg/dL Normal 8.5-10.1 [facility] Comment on above: Performed By: #### C MP, HSTROPN #### [facility] [address] [place] [address] Dr. Bal Stallings Chloride [Moles/Vol] 105 mmol/L Normal 98-107 [facility] Comment on above: Performed By: #### C AJZZY, HSTROPN #### [facility] [address] [place] [address] Dr. Bal Stallings CO2 [Moles/Vol] 23.7 mmol/L Normal 21.0-32.0 [facility] Comment on above: Performed By: #### C JAZZY, HSTROPN #### [facility] [address] [place] [address] Dr. Bal Stallings Creatinine [Mass/Vol] 1.28 mg/dL Normal 0.70-1.30 [facility] Comment on above: Performed By: #### C JAZZY, HSTROPN #### [facility] [address] [place] [address] Dr. Bal Stallings EGFR-AF BANGLADESHI >60 Normal >=60 [facility] Comment on above: Performed By: #### C MP, HSTROPN #### [facility] [address] [place] [address] Dr. Bal Stallings EGFR-NON AF BANGLADESHI 53 mL/min/1.73m2 Critically low >=60 [facility] Comment on above: Performed By: #### C MP, HSTROPN #### [facility] [address] [place] [address] Dr. Bal Stallings Globulin (S) [Mass/Vol] 3.1 g/dL Normal [facility] Comment on above: Performed By: #### C MP, HSTROPN #### [facility] [address] [address] [address] Bal Stallings Glucose [Mass/Vol] 106 mg/dL Normal 74-[address] [facility] Comment on above: Performed By: #### C MP, HSTROPN #### [facility] [address] [place] [address] Dr. Bal Stallings Potassium [Moles/Vol] 4.5 mmol/L Normal 3.5-5.1 [facility] Comment on above: Performed By: #### C MP, HSTROPN #### [facility] [address] [place] [address] Dr. Bal Stallings Protein [Mass/Vol] 7.0 g/dL Normal 6.4-8.[address] [facility] Comment on above: Performed By: #### C MP, HSTROPN #### [facility] [address] [place] [address] Dr. Bal Stallings Sodium [Moles/Vol] 138 mmol/L Normal 136-[address] [facility] Comment on above: Performed By: #### C MP, HSTROPN #### [facility] [address] [place] [address] Dr. Bal Stallings Urea nitrogen [Mass/Vol] 26.0 mg/dL Critically high 7.0-18 .0 [facility] Comment on above: Performed By: #### C MP, HSTROPN #### [facility] [address] [place] [address] Dr. Bal Stallings Urea nitrogen/Creatinine [Mass ratio] 20.3 mg/mg Normal [facility] Comment on above: Performed By: #### C MP, HSTROPN #### [facility] [address] [place] [address] Dr. Bal Stallings TROPONIN, HIGH SENSITIVITYon 07-01-2022 HSTROP 39.7 pg/mL Normal 4.0-76.1 [facility] Comment on above: Result Comment: CUT- OFF POINTS HAVE BEEN ESTABLISHED BASED ON THE FOURTH UNIVERSAL DEFINITIONS OF MYOCARDIAL INFARCTION. THE UPPER REFERENCE LIMIT (URL) OF TROPONIN, DEFINED THE 99TH PERCENTILE OF cTnI DISTRIBUTION IN A REFERENCE POPULATION, HAS BEEN CONFIRMED THE DECISION THRESHOLD FOR OK DIAGNOSIS. Performed By: #### C JAZZY, HSTROPN #### [facility] [address] [address] [address] Bal Stallings XR CHEST 1 Von 07-01-2022 XR CHEST 1 V EXAM: XR CHEST 1 V HISTORY: Dizziness COMPARISON: Chest x-ray, 04/10/2022. TECHNIQUE: AP upright portable chest x-ray. FINDINGS: An implantable loop recorder or wireless pacemaker is unchanged. The heart, mediastinum and pulmonary vascularity are within normal limits. The lungs are well expanded and clear. IMPRESSION: No acute cardiopulmonary disease or significant interval change. Electronically authenticated by: MACARIO LA Date: 2022-07-01 17:14 Normal [facility] Tobacco Screening.on 022 Adult depression screening assessment No [facility] [employer] [address] DO Work Phone: Fall risk assessment a) No falls within the last year [facility] [employer] [address] DO Work Phone: Tobacco use status [facility]PH[facility] b) No M [facility] [employer] [place] [address] DO Work Phone: Activated partial thrombopla stin time (aPTT) in platelet poor plasma by coagulation aOrdered By: Christ Ansari on 05-07-2022 aPTT Coag (PPP) [Time] 30.8 s 25.1-36.5 [facility] Basophils Auto (Bld) [#/Vol] Ordered By: Christ Ansari on 05-07-2022 Basophils (Bld) [#/Vol] 0.1 10*3/uL 0.0-0.2 [facility] Basophils/100 WBC Auto (Bld) Ordered By: Christ Ansari on 05-07-2022 Basophils/100 WBC (Bld) 1.5 % . F [facility] Blood hemoglobin measurement (mass/volume)Ordered By: Christ Ansari on 05-07-2022 Hemoglobin (Bld) [Mass/Vol] 13.8 g/dL 13.0-17.0 [facility] Blood leukocytes automated c ount (number/volume)Ordered By: Christ Ansari on 05-07-2022 WBC (Bld) [#/Vol] 7.1 10*3/uL 4.5-11.0 [facility] COVID-19 Positive/NegativeOr dered By: Christ Ansari on 05-07-2022 SARS-CoV-2 (COVID-19) N gene MERLYN+probe Ql (Resp) Negative Negative [facility] Comment on above: Testing for SARS-CoV -2 by RT-PCR This test was developed and its performance characteristics determined by [employer] and validated at the [facility]. This test has not been FDA cleared or approved. This test has been authorized by FDA under an Emergency Use Authorization (EUA). This test has been validated in accordance with the FDA's Guidance Document (Policy for Diagnostics Testing in Laboratories Certified to Perform High Complexity Testing under CLIA prior to Emergency Use Authorization for Coronavirus Disease-2019 during the Public Health Emergency) issued on January 18, 2020. This test is only authorized for the duration of time the declaration that circumstances exist justifying the authorization of the emergency use of in vitro diagnostic tests for detection of SARS-CoV-2 virus and/or diagnosis of COVID-19 infection under section 564(b)(1) of the Act, 21 U.S.C. 360bbb-3(b)(1), unless the authorization is terminated or revoked sooner. COVID-19 SOFIAOrdered By: Malissa Ansari on 05-07-2022 SARS-CoV+SARS-CoV-2 (COVID-19) Ag IA.rapid Ql (Resp) Negative Negative [facility] Comment on above: This is a duplicate Soo SARS Antigen (RUBÉN) result to be used for statistical tracking purpose only. Creatine kinase [Enzymatic a ctivity/volume] in Serum or PlasmaOrdered By: Christ Ansari on 05-07-2022 CK [Catalytic activity/Vol] 90 U/L 22-269 [facility] Creatinine and Glomerular fi ltration rate.predicted panel (S/P/Bld)Ordered By: Christ Ansari on 05-07-2022 Creatinine [Mass/Vol] 1.17 mg/dL 0.64-1.27 [facility] Eosinophils Auto (Bld) [#/Vo l]Ordered By: Christ Ansari on 05-07-2022 Eosinophils (Bld) [#/Vol] 0.1 10*3/uL 0.0-0.45 [facility] Eosinophils/100 WBC Auto (Bl d)Ordered By: Christ Ansari on 05-07-2022 Eosinophils/100 WBC (Bld) 1.3 % . [facility] Erythrocyte distribution wid th Auto (RBC) [Ratio]Ordered By: Christ Ansari on 05-07-2022 Erythrocyte distribution width (RBC) [Ratio] 13.5 % 12.0-14.8 [facility] Estimated glomerular filtrat ion rate (GFR) non- AmericanOrdered By: Christ Ansari on 05-07-2022 GFR/1.73 sq M.predicted among non-blacks MDRD (S/P/Bld) [Vol rate/Area] 59 mL/Min [facility] Hematocrit Auto (Bld) [Volum e fraction]Ordered By: Christ Ansari on 05-07-2022 Hematocrit (Bld) [Volume fraction] 40.3 % 38.8-50.0 [facility] Laboratory - Chemistry and C hemistry - challengeOrdered By: Christ Ansari on 05-07-2022 Natriuretic peptide B (Bld) [Mass/Vol] 106.0 pg/mL 5-100 [facility] Laboratory - CoagulationOrde red By: Christ Ansari on 05-07-2022 PT Coag (PPP) [Time] 13.3 s 9.0-12.9 [facility] - Hematology and Cell countsOrdered By: Christ Ansari on 05-07-2022 Nucleated RBC/100 WBC (Bld) [Ratio] 0.1 % 0-0.5 [facility] Laboratory - Microbiology an d Antimicrobial susceptibilityOrdered By: Christ Ansari on 05-07-2022 SARS-CoV-2 (COVID-19) RNA MERLYN+probe Ql (Unsp spec) N/A [facility] Lymphocytes Auto (Bld) [#/Vo l]Ordered By: Christ Ansari on 05-07-2022 Lymphocytes (Bld) [#/Vol] 1.6 10*3/uL 1.00-4.8 [facility] Lymphocytes/100 WBC Auto (Bl d)Ordered By: Christ Ansari on 05-07-2022 Lymphocytes/100 WBC (Bld) 23.2 % . [facility] MCH Auto (RBC) [Entitic mass ]Ordered By: Christ Ansari on 05-07-2022 MCH (RBC) [Entitic mass] 32.0 pg 27.5-35.2 [facility] MCHC Auto (RBC) [Mass/Vol]Or dered By: Christ Ansari on 05-07-2022 MCHC (RBC) [Mass/Vol] 34.2 g/dL 32.5-35.6 [facility] MCV Auto (RBC) [Entitic vol] Ordered By: Christ Ansari on 05-07-2022 MCV (RBC) [Entitic vol] 93.5 fL 83.5-101 F [facility] Monocytes Auto (Bld) [#/Vol] Ordered By: Christ Ansari on 05-07-2022 Monocytes (Bld) [#/Vol] 0.6 10*3/uL 0.0-0.8 [facility] Monocytes/100 WBC Auto (Bld) Ordered By: Christ Ansari on 05-07-2022 Monocytes/100 WBC (Bld) 8.6 % . F [facility] Neutrophils Auto (Bld) [#/Vo l]Ordered By: Christ Ansari on 05-07-2022 Neutrophils (Bld) [#/Vol] 4.6 10*3/uL 1.8-7.7 [facility] Neutrophils/100 WBC Auto (Bl d)Ordered By: Christ Ansari on 05-07-2022 Neutrophils/100 WBC (Bld) 65.4 % . [facility] No Panel InformationOrdered By: Christ Ansari on 05-07-2022 Estimated GFR () > 60 mL/Min [facility] Comment on above: GFR estimated refere nce range: According to KDOQI guidelines, <60 ml/min/1.73m2 is sufficient to diagnose a patient with chronic kidney disease. Pharmacy Creatinine Clearance (Chem 52.05 [facility] SARS Antigen (LFIA) [facility] Platelet mean volume Auto (B ld) [Entitic vol]Ordered By: Christ Ansari on 05-07-2022 Platelet mean volume (Bld) [Entitic vol] 9.5 fL 6.6-10.1 [facility] Platelet poor plasma interna tional normalized ratio (INR) by coagulation assay (relatOrdered By: Christ Ansari on 05-07-2022 INR Coag (PPP) [Relative time] 1.2 {INR} [facility] Comment on above: INR Therapeutic Rang e A) Pre- and Peroperative OAT started two weeks before surgery. NOT HIP SURGERY: 1.5 - 2.5 HIP SURGERY: 2 - 3 B) Primary and secondary prevention of venous THROMBOSIS: 2 - 3 C) Active venous thrombosis, pulmonary embolism and prevention of recurrent venous thrombosis: 2 - 3 D) Prevention of arterial thromboembolism including patients with mechanical heart valves: 3 - 4.5 Platelets Auto (Bld) [#/Vol] Ordered By: Christ Ansari on 05-07-2022 Platelets (Bld) [#/Vol] 178 10*3/uL 150-450 [facility] RBC Auto (Bld) [#/Vol]Ordere d By: Christ Ansari on 05-07-2022 RBC (Bld) [#/Vol] 4.31 10*6/uL 3.90-5.60 [facility] Serum or plasma calcium cain urement (mass/volume)Ordered By: Christ Ansari on 05-07-2022 Calcium [Mass/Vol] 9.5 mg/dL 8.2-10.2 [facility] Serum or plasma chloride vanessa surement (moles/volume)Ordered By: Christ Ansari on 05-07-2022 Chloride [Moles/Vol] 102 mmol/L 95-114 [facility] Serum or plasma creatine kin ase MB (CKMB)/total creatine kinase (CK) ratio by calculaOrdered By: Christ Ansari on 05-07-2022 CK.MB Calc [Catalytic fraction] 3.2 % 0.00-2.50 [facility] Serum or plasma creatine kin ase MB measurement (mass/volume)Ordered By: Christ Ansari on 05-07-2022 CK.MB [Mass/Vol] 2.9 ng/mL 0.6-6.3 [facility] Serum or plasma glucose cain urement (mass/volume)Ordered By: Christ Ansari on 05-07-2022 Glucose [Mass/Vol] 118 mg/dL 70-100 [facility] Comment on above: ADA recommended refe rence range Random Glucose Reference Range is dependent on time and content of last meal. Glucose of more than 200 mg/dL in a nonstressed, ambulatory subject supports the diagnosis of Diabetes Mellitus. Serum or plasma potassium me asurement (moles/volume)Ordered By: Christ Ansari on 05-07-2022 Potassium [Moles/Vol] 3.9 mmol/L 3.5-5.1 [facility] Serum or plasma sodium measu rement (moles/volume)Ordered By: Christ Ansari on 05-07-2022 Sodium [Moles/Vol] 133 mmol/L 136-146 [facility] Serum or plasma total carbon dioxide measurement (moles/volume)Ordered By: Christ Ansari on 05-07-2022 CO2 [Moles/Vol] 22.2 mmol/L 22.0-30.0 [facility] Serum or plasma urea nitroge n measurement (mass/volume)Ordered By: Christ Ansari on 05-07-2022 Urea nitrogen [Mass/Vol] 14 mg/dL 9-23 [facility] Troponin I.cardiac [Mass/vol ume] in Serum or Plasma by High sensitivity methodOrdered By: Lidia Borja on 05-07-2022 Troponin I.cardiac High sensitivity method [Mass/Vol] 13 pg/mL 0-20 [facility] Troponin I.cardiac [Mass/vol ume] in Serum or Plasma by High sensitivity methodOrdered By: Christ Ansari on 05-07-2022 Troponin I.cardiac High sensitivity method [Mass/Vol] 12 pg/mL 0-20 [facility] Albumin [Mass/volume] in Ser um or PlasmaOrdered By: Kel Sparrow on 04-12-2022 Albumin [Mass/Vol] 3.2 g/dL 3.2-5.5 [facility] Basophils Auto (Bld) [#/Vol] Ordered By: Kel Sparrow on 04-12-2022 Basophils (Bld) [#/Vol] 0.1 10*3/uL 0.0-0.2 [facility] Basophils/100 WBC Auto (Bld) Ordered By: Kel Sparrow on 04-12-2022 Basophils/100 WBC (Bld) 1.0 % . F [facility] Blood hemoglobin measurement (mass/volume)Ordered By: Kel Sparrow on 04-12-2022 Hemoglobin (Bld) [Mass/Vol] 13.3 g/dL 13.0-17.0 [facility] Blood leukocytes automated c ount (number/volume)Ordered By: Kel Sparrow on 04-12-2022 WBC (Bld) [#/Vol] 10.6 10*3/uL 4.5-11.0 [facility] Cholesterol [Mass/volume] in Serum or PlasmaOrdered By: Selam Noble on 04-12-2022 Cholesterol [Mass/Vol] 118 mg/dL 140-200 [facility] Comment on above: Chol less than 200 m g/dl low risk Chol 201-239 mg/dl borderline risk Chol 240 mg/dl and greater high risk Cholesterol in LDL Calc [Mas s/Vol]Ordered By: Selam Noble on 04-12-2022 Cholesterol in LDL [Mass/Vol] 53 mg/dL 0-100 [facility] Comment on above: LDL ATP III CLASSIFI CATION LDL less than 100 mg/dL Optimal LDL 100-129 mg/dL Near or above optimal LDL 130-159 mg/dL Borderline high LDL 160-189 mg/dL High LDL greater than 189 mg/dL Very high Cholesterol in VLDL Calc [Ma ss/Vol]Ordered By: Selam Noble on 04-12-2022 Cholesterol in VLDL [Mass/Vol] 8 mg/dL [facility] Creatinine and Glomerular fi ltration rate.predicted panel (S/P/Bld)Ordered By: Kel Sparrow on 04-12-2022 Creatinine [Mass/Vol] 0.98 mg/dL 0.64-1.27 [facility] Eosinophils Auto (Bld) [#/Vo l]Ordered By: Kel Sparrow on 04-12-2022 Eosinophils (Bld) [#/Vol] 0.3 10*3/uL 0.0-0.45 [facility] Eosinophils/100 WBC Auto (Bl d)Ordered By: Kel Sparrow on 04-12-2022 Eosinophils/100 WBC (Bld) 2.7 % . [facility] Erythrocyte distribution wid th Auto (RBC) [Ratio]Ordered By: Kel Sparrow on 04-12-2022 Erythrocyte distribution width (RBC) [Ratio] 13.9 % 12.0-14.8 [facility] Estimated glomerular filtrat ion rate (GFR) non- AmericanOrdered By: Kel Sparrow on 04-12-2022 GFR/1.73 sq M.predicted among non-blacks MDRD (S/P/Bld) [Vol rate/Area] > 60 mL/Min [facility] Globulin Calc (S) [Mass/Vol] Ordered By: Kel Sparrow on 04-12-2022 Globulin (S) [Mass/Vol] 2.7 g/dL F [facility] Hematocrit Auto (Bld) [Volum e fraction]Ordered By: Kel Sparrow on 04-12-2022 Hematocrit (Bld) [Volume fraction] 39.2 % 38.8-50.0 [facility] Laboratory - Hematology and Cell countsOrdered By: Kel Sparrow on 04-12-2022 Nucleated RBC/100 WBC (Bld) [Ratio] 0.1 % 0-0.5 [facility] Lymphocytes Auto (Bld) [#/Vo l]Ordered By: Kel Sparrow on 04-12-2022 Lymphocytes (Bld) [#/Vol] 2.2 10*3/uL 1.00-4.8 [facility] Lymphocytes/100 WBC Auto (Bl d)Ordered By: Kel pSarrow on 04-12-2022 Lymphocytes/100 WBC (Bld) 20.7 % . [facility] MCH Auto (RBC) [Entitic mass ]Ordered By: Kel Sparrow on 04-12-2022 MCH (RBC) [Entitic mass] 31.9 pg 27.5-35.2 [facility] MCHC Auto (RBC) [Mass/Vol]Or dered By: Kel Sparrow on 04-12-2022 MCHC (RBC) [Mass/Vol] 33.9 g/dL 32.5-35.6 [facility] MCV Auto (RBC) [Entitic vol] Ordered By: Kel Sparrow on 04-12-2022 MCV (RBC) [Entitic vol] 93.8 fL 83.5-101 F [facility] Monocytes Auto (Bld) [#/Vol] Ordered By: Kel Sparrow on 04-12-2022 Monocytes (Bld) [#/Vol] 0.9 10*3/uL 0.0-0.8 [facility] Monocytes/100 WBC Auto (Bld) Ordered By: Kel Sparrow on 04-12-2022 Monocytes/100 WBC (Bld) 8.8 % . F [facility] Neutrophils Auto (Bld) [#/Vo l]Ordered By: Kel Sparrow on 04-12-2022 Neutrophils (Bld) [#/Vol] 7.1 10*3/uL 1.8-7.7 [facility] Neutrophils/100 WBC Auto (Bl d)Ordered By: Kel Sparrow on 04-12-2022 Neutrophils/100 WBC (Bld) 66.8 % . [facility] No Panel InformationOrdered By: Kel Sparrow on 04-12-2022 Estimated GFR () > 60 mL/Min [facility] Comment on above: GFR estimated refere nce range: According to KDOQI guidelines, <60 ml/min/1.73m2 is sufficient to diagnose a patient with chronic kidney disease. Pharmacy Creatinine Clearance (Chem 67.08 [facility] Platelet mean volume Auto (B ld) [Entitic vol]Ordered By: Kel Sparrow on 04-12-2022 Platelet mean volume (Bld) [Entitic vol] 8.7 fL 6.6-10.1 [facility] Platelets Auto (Bld) [#/Vol] Ordered By: Kel Sparrow on 04-12-2022 Platelets (Bld) [#/Vol] 226 10*3/uL 150-450 [facility] Protein [Mass/volume] in Ser um or PlasmaOrdered By: Kel Sparrow on 04-12-2022 Protein [Mass/Vol] 5.9 g/dL 6.1-7.9 [facility] RBC Auto (Bld) [#/Vol]Ordere d By: Kel Sparrow on 04-12-2022 RBC (Bld) [#/Vol] 4.18 10*6/uL 3.90-5.60 [facility] Serum or plasma alanine norris otransferase measurement without P-5'-P (enzymatic activiOrdered By: Kel Sparrow on 04-12-2022 ALT No additional P-5'-P [Catalytic activity/Vol] 22 U/L 10-60 [facility] Serum or plasma albumin/glob ulin mass ratioOrdered By: Kel Sparrow on 04-12-2022 Albumin/Globulin [Mass ratio] 1.2 {ratio} [facility] Serum or plasma alkaline malick sphatase measurement (enzymatic activity/volume)Ordered By: Kel Sparrow on 04-12-2022 ALP [Catalytic activity/Vol] 69 U/L 32-92 [facility] Serum or plasma aspartate am inotransferase measurement (enzymatic activity/volume)Ordered By: Kel Sparrow on 04-12-2022 AST [Catalytic activity/Vol] 61 U/L 10-42 [facility] Serum or plasma calcium cain urement (mass/volume)Ordered By: Kel Sparrow on 04-12-2022 Calcium [Mass/Vol] 8.9 mg/dL 8.2-10.2 [facility] Serum or plasma chloride vanessa surement (moles/volume)Ordered By: Kel Sparrow on 04-12-2022 Chloride [Moles/Vol] 103 mmol/L 95-114 [facility] Serum or plasma glucose cain urement (mass/volume)Ordered By: Kel Sparrow on 04-12-2022 Glucose [Mass/Vol] 127 mg/dL 70-100 [facility] Comment on above: ADA recommended refe rence range Random Glucose Reference Range is dependent on time and content of last meal. Glucose of more than 200 mg/dL in a nonstressed, ambulatory subject supports the diagnosis of Diabetes Mellitus. Serum or plasma high density lipoprotein (HDL) cholesterol measurementOrdered By: Selam Noble on 04-12-2022 Cholesterol in HDL [Mass/Vol] 56 mg/dL 29-71 [facility] Comment on above: HDL CHOL ATP-III CLA SSIFICATION Cardiovascular Risk HDL > or equal to 60 mg/dL LOW HDL < 40 mg/dL HIGH Serum or plasma potassium me asurement (moles/volume)Ordered By: Kel Sparrow on 04-12-2022 Potassium [Moles/Vol] 3.7 mmol/L 3.5-5.1 [facility] Serum or plasma sodium measu rement (moles/volume)Ordered By: Kel Sparrow on 04-12-2022 Sodium [Moles/Vol] 137 mmol/L 136-146 [facility] Serum or plasma total biliru bin measurement (mass/volume)Ordered By: Kel Sparrow on 04-12-2022 Bilirubin [Mass/Vol] 1.0 mg/dL 0.3-1.2 [facility] Serum or plasma total carbon dioxide measurement (moles/volume)Ordered By: Kel Sparrow on 04-12-2022 CO2 [Moles/Vol] 23.8 mmol/L 22.0-30.0 [facility] Serum or plasma total choles terol/high density lipoprotein (HDL) cholesterol mass ratOrdered By: Selam Noble on 04-12-2022 Cholesterol.total/Choles terol in HDL [Mass ratio] 2.1 {ratio} <5.0 [facility] Serum or plasma urea nitroge n measurement (mass/volume)Ordered By: Kel Sparrow on 04-12-2022 Urea nitrogen [Mass/Vol] 11 mg/dL 9-23 [facility] Triglyceride [Mass/volume] i n Serum or PlasmaOrdered By: Selam Noble on 04-12-2022 Triglyceride [Mass/Vol] 43 mg/dL 35-149 [facility] Comment on above: TRIG ATP III CLASSIF ICATION TRIG less than 150 mg/dL Normal TRIG 150-199 mg/dL Borderline high TRIG 200-500 mg/dL High TRIG greater than 500 mg/dL Very high Standard traceable to the Center for Disease Conrtrol and Prevention (CDC) test method. Activated partial thrombopla stin time (aPTT) in platelet poor plasma by coagulation aOrdered By: Shobha Salmeron on 04-11-2022 aPTT Coag (PPP) [Time] 34.4 s 25.1-36.5 [facility] CARDIAC EMELI 3-6on 2 CK [Catalytic activity/Vol] 84 U/L Normal 39-308 [facility] Comment on above: Performed By: #### C CELINE PURCELLN #### [facility] [address] [address] [address] Bal Stallings CK.MB [Mass/Vol] 4.13 ng/mL Critically high <=3.60 [facility] Comment on above: Performed By: #### C MP, HSTROPN #### [facility] [address] [place], [place] [address] Dr. Bal Stallings HSTROP 234.8 pg/mL Critically high 4.0-76.1 [facility] Comment on above: Result Comment: CUT- OFF POINTS HAVE BEEN ESTABLISHED BASED ON THE FOURTH UNIVERSAL DEFINITIONS OF MYOCARDIAL INFARCTION. THE UPPER REFERENCE LIMIT (URL) OF TROPONIN, DEFINED THE 99TH PERCENTILE OF cTnI DISTRIBUTION IN A REFERENCE POPULATION, HAS BEEN CONFIRMED THE DECISION THRESHOLD FOR OK DIAGNOSIS. Performed By: #### C MP, HSTROPN #### [facility] [address] [place], [place] [address] Dr. Bal Stallings Laboratory - Chemistry and C hemistry - challengeOrdered By: Patsy Smith on 04-11-2022 Natriuretic peptide B (Bld) [Mass/Vol] 79.0 pg/mL 5-100 [facility] Laboratory - Chemistry and C hemistry - challengeOrdered By: Shobha Salmeron on 04-11-2022 Magnesium [Mass/Vol] 2.1 mg/dL 1.6-2.6 [facility] - CoagulationOrde red By: Shobha Salmeron on 04-11-2022 PT Coag (PPP) [Time] 14.0 s 9.0-12.9 [facility] Platelet poor plasma interna tional normalized ratio (INR) by coagulation assay (relatOrdered By: Shobha Salmeron on 04-11-2022 INR Coag (PPP) [Relative time] 1.2 {INR} [facility] Comment on above: INR Therapeutic Rang e A) Pre- and Peroperative OAT started two weeks before surgery. NOT HIP SURGERY: 1.5 - 2.5 HIP SURGERY: 2 - 3 B) Primary and secondary prevention of venous THROMBOSIS: 2 - 3 C) Active venous thrombosis, pulmonary embolism and prevention of recurrent venous thrombosis: 2 - 3 D) Prevention of arterial thromboembolism including patients with mechanical heart valves: 3 - 4.5 Troponin I.cardiac [Mass/vol ume] in Serum or Plasma by High sensitivity methodOrdered By: Shobha Salmeron on 04-11-2022 Troponin I.cardiac High sensitivity method [Mass/Vol] 11992 pg/mL 0-20 [facility] Comment on above: Results called at 1027 on 04/11/22 BNPon 04-10-2022 Natriuretic peptide B (Bld) [Mass/Vol] 305.0 pg/mL Normal <=1,800.0 [facility] Comment on above: Performed By: #### C MP, HSTROPN #### [facility] [address] [place] [address] Dr. Bal Stallings CARDIAC EMELI 3-6on 2 CK [Catalytic activity/Vol] 91 U/L Normal 39-308 [facility] Comment on above: Performed By: #### C MP, HSTROPN #### [facility] [address] [place] [address] Dr. Bal Stallings CK.MB [Mass/Vol] 3.50 ng/mL Normal <=3.60 [facility] Comment on above: Performed By: #### C MP, HSTROPN #### [facility] [address] [place] [address] Dr. Bal Stallings HSTROP 191.6 pg/mL Critically high 4.0-76.1 [facility] Comment on above: Result Comment: CUT- OFF POINTS HAVE BEEN ESTABLISHED BASED ON THE FOURTH UNIVERSAL DEFINITIONS OF MYOCARDIAL INFARCTION. THE UPPER REFERENCE LIMIT (URL) OF TROPONIN, DEFINED THE 99TH PERCENTILE OF cTnI DISTRIBUTION IN A REFERENCE POPULATION, HAS BEEN CONFIRMED THE DECISION THRESHOLD FOR OK DIAGNOSIS. Performed By: #### C MP, HSTROPN #### [facility] [address] [place] [address] Dr. Bal Stallings CBC AUTO DIFFon 04-10-2022 BASO # 0.1 103/ul Normal 0.0-0.1 [facility] Comment on above: Performed By: #### C BC #### [facility] [address] [place] [address] Dr. Bal Stallings Basophils/100 WBC (Bld) 0.9 % Normal 0.2-2.0 [facility] Comment on above: Performed By: #### C BC #### [facility] [address] [place] [address] Dr. Bal Stallings EO # 0.3 103/ul Normal 0.0-0.7 [facility] Comment on above: Performed By: #### C BC #### [facility] [address] [place] [address] Dr. Bal Stallings Eosinophils/100 WBC (Bld) 3.5 % Normal 0.9-7.0 [facility] Comment on above: Performed By: #### C BC #### [facility] [address] [place] [address] Dr. Bal Stallings Erythrocyte distribution width (RBC) [Ratio] 13.1 % Normal 11.0-15.0 [facility] Comment on above: Performed By: #### C BC #### [facility] [address] [place] [address] Dr. Bal Stallings Hematocrit (Bld) [Volume fraction] 39.4 % Critically low 42.0-54.0 [facility] Comment on above: Performed By: #### C BC #### [facility] [address] [place] [address] Dr. Bal Stallings Hemoglobin (Bld) [Mass/Vol] 13.5 g/dL Critically low 14.0-18.0 [facility] Comment on above: Performed By: #### C BC #### [facility] [address] [place] [address] Dr. Bal Stallings IG # 0.02 10e3/ul Normal 0.00-0.03 [facility] Comment on above: Performed By: #### C BC #### [facility] [address] [place] [address] Dr. Bal Stallings IG % 0.2 % Normal 0.0-0.5 [facility] Comment on above: Performed By: #### C BC #### [facility] [address] [place] [address] Dr. Bal Stallings LYMPH # 2.8 103/ul Normal 1.2-3.8 [facility] Comment on above: Performed By: #### C BC #### [facility] [address] [place] [address] Dr. Bal Stallings Lymphocytes/100 WBC (Bld) 29.0 % Normal 20.5-60.0 [facility] Comment on above: Performed By: #### C BC #### [facility] [address] [place] [address] Dr. Bal Stallings MANUAL DIFF REQ NO Normal [facility] Comment on above: Performed By: #### C BC #### [facility] [address] [place] [address] Dr. Bal Stallings MCH (RBC) [Entitic mass] 31.7 pg Normal 25.9-34.0 [facility] Comment on above: Performed By: #### C BC #### [facility] [address] [place] [address] Dr. Bal Stallings MCHC (RBC) [Mass/Vol] 34.3 g/dL Normal 29.9-35.2 [facility] Comment on above: Performed By: #### C BC #### [facility] [address] [place] [address] Dr. Bal Stallings MCV (RBC) [Entitic vol] 92.5 fL Normal 80.0-94.0 [facility] Comment on above: Performed By: #### C BC #### [facility] [address] [place] [address] Dr. Bal Stallings MONO # 0.8 103/ul Normal 0.3-0.8 [facility] Comment on above: Performed By: #### C BC #### [facility] [address] [place] [address] Dr. Bal Stallings Monocytes/100 WBC (Bld) 8.1 % Normal 1.7-12.0 [facility] Comment on above: Performed By: #### C BC #### [facility] [address] [place] [address] Dr. Bal Stallings NEUT # 5.6 103/ul Normal 1.4-6.5 [facility] Comment on above: Performed By: #### C BC #### [facility] [address] [place] [address] Dr. Bal Stallings Neutrophils/100 WBC (Bld) 58.3 % Normal 43.0-75.0 [facility] Comment on above: Performed By: #### C BC #### [facility] [address], [place] [address] Dr. Bal Stallings Platelet mean volume (Bld) [Entitic vol] 10.3 fL Normal 9.5-13.5 [facility] Comment on above: Performed By: #### C BC #### [facility] [address] [address] [address] Bal Stallings PLT 228 103/ul Normal 150-450 [facility] Comment on above: Performed By: #### C BC #### [facility] [address] [address] [address] Bal Stallings RBC 4.26 106/ul Critically low 4.70-6.10 [facility] Comment on above: Performed By: #### C BC #### [facility] [address] [address] [address] Bal Stallings WBC 9.6 103/ul Normal 4.0-11.0 [facility] Comment on above: Performed By: #### C BC #### [facility] [address] [address] [address] Bal Stallings Covid-19 PCR ([facility])on 03-19 SARS-CoV-2 (COVID-19) RNA MERLYN+probe Ql (Unsp spec) Not detected Normal NOT DETECTED [facility] Comment on above: Result Comment: When diagnostic testing is negative, the possibility of a false negative should be considered in the context of a patient's recent exposures and the presence of clinical signs and symptoms consistent with SARS-CoV-2. This test is not yet approved or cleared by the [place] FDA. When there are no FDA-approved or cleared tests available, and other criteria are met, FDA can make tests available under an emergency access mechanism called an Emergency Use Authorization (EUA). The EUA for this test is supported by the Communications Assistant of Health and Human Service's declaration that circumstances exist to justify the emergency use of in vitro diagnostics for the detection and/or diagnosis of the virus that causes COVID-19. This EUA will remain in effect for the duration of the COVID-19 declaration justifying emergency of IVDs, unless it is terminated or revoked by the FDA (after which the test may no longer be used). Performed By: #### C JAZZY, HSTROPN #### [facility] [address] [place] [address] Dr. Bal Stallings LIPASEon 04-10-2022 Lipase [Catalytic activity/Vol] 62.0 U/L Critically low 73.0-393.0 [facility] Comment on above: Performed By: #### L IPA #### [facility] [address] [place] [address] Dr. Bal Stallings PROF 14(COMP METB)on 022 Albumin [Mass/Vol] 3.6 g/dL Normal 3.4-5.0 [facility] Comment on above: Performed By: #### C JAZZY, HSTROPN #### [facility] [address] [place] [address] Dr. Bal Stallings Albumin/Globulin [Mass ratio] 1.0 {ratio} Normal [facility] Comment on above: Performed By: #### C JAZZY, HSTROPN #### [facility] [address] [place] [address] Dr. Bal Stallings ALP [Catalytic activity/Vol] 88 U/L Normal 46-116 [facility] Comment on above: Performed By: #### C JAZZY, HSTROPN #### [facility] [address] [place] [address] Dr. Bal Stallings ALT [Catalytic activity/Vol] 26 U/L Normal 16-63 [facility] Comment on above: Performed By: #### C JAZZY, HSTROPN #### [facility] [address] [place] [address] Dr. Bal Stallings Anion gap [Moles/Vol] 12.2 mmol/L Normal [facility] Comment on above: Performed By: #### C MP, HSTROPN #### [facility] [address] [place] [address] Dr. Bal Stallings AST [Catalytic activity/Vol] 17 U/L Normal 15-37 [facility] Comment on above: Performed By: #### C MP, HSTROPN #### [facility] [address] [place] [address] Dr. Bal Stallings Bilirubin [Mass/Vol] 0.6 mg/dL Normal 0.2-1.0 [facility] Comment on above: Performed By: #### C MP, HSTROPN #### [facility] [address] [place] [address] Dr. Bal Stallings Calcium [Mass/Vol] 8.8 mg/dL Normal 8.5-10.1 [facility] Comment on above: Performed By: #### C MP, HSTROPN #### [facility] [address] [place] [address] Dr. Bal Stallings Chloride [Moles/Vol] 103 mmol/L Normal 98-107 [facility] Comment on above: Performed By: #### C MP, HSTROPN #### [facility] [address] [place] [address] Dr. Bal Stallings CO2 [Moles/Vol] 25.1 mmol/L Normal 21.0-32.0 [facility] Comment on above: Performed By: #### C MP, HSTROPN #### [facility] [address] [place] [address] Dr. Bal Stallings Creatinine [Mass/Vol] 1.00 mg/dL Normal 0.70-1.30 [facility] Comment on above: Performed By: #### C MP, HSTROPN #### [facility] [address] [place] [address] Dr. Bal Stallings EGFR-AF BANGLADESHI >60 Normal >=60 [facility] Comment on above: Performed By: #### C MP, HSTROPN #### [facility] [address] [place] [address] Dr. Bal Stallings EGFR-NON AF BANGLADESHI >60 Normal >=60 [facility] Comment on above: Performed By: #### C MP, HSTROPN #### [facility] [address] [place] [address] Dr. Bal Stallings Globulin (S) [Mass/Vol] 3.6 g/dL [facility] Comment on above: Performed By: #### C JAZZY, HSTROPN #### [facility] [address] [address] [address] Bal Stallings Glucose [Mass/Vol] 113 mg/dL Critically high 74-106 [facility] Comment on above: Performed By: #### C JAZZY, HSTROPN #### [facility] [address] [place] [address] Dr. Bal Stallings Potassium [Moles/Vol] 4.3 mmol/L Normal 3.5-5.1 [facility] Comment on above: Performed By: #### C JAZZY, HSTROPN #### [facility] [address] [place] [address] Dr. Bal Stallings Protein [Mass/Vol] 7.2 g/dL Normal 6.4-8.2 [facility] Comment on above: Performed By: #### C JAZZY, HSTROPN #### [facility] [address] [place] [address] Dr. Bal Stallings Sodium [Moles/Vol] 136 mmol/L Normal 136-145 [facility] Comment on above: Performed By: #### C JAZZY, HSTROPN #### [facility] [address] [place] [address] Dr. Bal Stallings Urea nitrogen [Mass/Vol] 20.0 mg/dL Critically high 7.0-18 .0 [facility] Comment on above: Performed By: #### C JAZZY, HSTROPN #### [facility] [address] [place] [address] Dr. Bal Stallings Urea nitrogen/Creatinine [Mass ratio] 20.0 mg/mg Normal [facility] Comment on above: Performed By: #### C JAZZY, HSTROPN #### [facility] [address] [place] [address] Dr. Bal Stallings PROTIMEon 04-10-2022 INR Coag (PPP) [Relative time] 1.11 {INR} Normal [facility] Comment on above: Performed By: #### C VDTBH #### [facility] [address] [place] [address] Dr. Bal Stallings INR GUIDELINES SEE BELOW Normal [facility] Comment on above: Result Comment: TRISH RED INR: 2.0 - 3.0 CONDITIONS NOT LISTED BELOW 2.5 - 3.5 FOR PROSTHETIC HEART VALVE REPLACEMENT 2.5 - 3.5 RECURRENT THROMBOSIS Performed By: #### C VDTBH #### [facility] [address] [place] [address] Dr. Bal Stallings PT Coag (PPP) [Time] 11.9 s Critically high 9.0-11.6 [facility] Comment on above: Performed By: #### C VDTBH #### [facility] [address] [place] [address] Dr. Bal Stallings PTTon 04-10-2022 aPTT Coag (Bld) [Time] 27.9 s Normal 22.3-36.2 [facility] Comment on above: Performed By: #### C VDTBH #### [facility] [address] [place] [address] Dr. Bal Stallings TROPONIN, HIGH SENSITIVITYon 04-10-2022 HSTROP 134.8 pg/mL Critically high 4.0-76.1 [facility] Comment on above: Result Comment: CUT- OFF POINTS HAVE BEEN ESTABLISHED BASED ON THE FOURTH UNIVERSAL DEFINITIONS OF MYOCARDIAL INFARCTION. THE UPPER REFERENCE LIMIT (URL) OF TROPONIN, DEFINED THE 99TH PERCENTILE OF cTnI DISTRIBUTION IN A REFERENCE POPULATION, HAS BEEN CONFIRMED THE DECISION THRESHOLD FOR OK DIAGNOSIS. repeated Performed By: #### C MP, HSTROPN #### [facility] [address] [place] [address] Dr. Bal Stallings XR CHEST 1 Von 04-10-2022 XR CHEST 1 V EXAM: XR CHEST 1 V HISTORY: CHEST PAIN, UNSPECIFIED EXAM: XR CHEST 1 V INDICATION: 87 years old Male CHEST PAIN, UNSPECIFIED COMPARISON: September 17, 2021 FINDINGS: The cardiac silhouette is normal. There is no pulmonary edema. The lungs are clear. There is no pneumonia. There is no pneumothorax. There is no abnormal foreign body. IMPRESSION: There is no acute abnormality. Electronically authenticated by: NAN LYNNE Date: 2022-04-10 17:59 Normal [facility] Patient Correspondenceon Patient Correspondence [id number]# [id number]:127 Normal [facility] Covid-19 PCR ([facility])on 03-18 SARS-CoV-2 (COVID-19) RNA MERLYN+probe Ql (Unsp spec) Not detected Normal NOT DETECTED [facility] Comment on above: Result Comment: This test is not yet approved or cleared by the [place] FDA. When there are no FDA-approved or cleared tests available, and other criteria are met, FDA can make tests available under an emergency access mechanism called an Emergency Use Authorization (EUA). The EUA for this test is supported by the Communications Assistant of Health and Human Service's (HHS's) declaration that circumstances exist to justify the emergency use of in vitro diagnostics for the detection and/or diagnosis of the virus that causes COVID-19. This EUA will remain in effect (meaning this test can be used) for the duration of the COVID-19 declaration justifying emergency of IVDs, unless it is terminated or revoked by FDA (after which the test may no longer be used). When diagnostic testing is negative, the possibility of a false negative should be considered in the context of a patient's recent exposures and the presence of clinical signs and symptoms consistent with SARS-CoV-2. Performed By: #### [facility] #### [facility] [address] [place] [address] Dr. Bal Stallings SYMPTOMATIC COVID-19 ANTIGEN on 04-01-2022 EUA Statement SEE BELOW Normal [facility] Comment on above: Result Comment: This test has not been FDA cleared or approved, but has been authorized by the FDA under an Emergency Use Authorization (EUA) for use by authorized laboratories certified under CLIA that meet the requirements to perform moderate or high complexity testing. This test has been authorized only for the detection of proteins from SARS-CoV-2, not for any other viruses or pathogens. The emergency use of this test is authorized for the duration of the declaration that circumstances exist justifying the authorization of emergency use of in vitro diagnostic tests for detection and/or diagnosis of Covid-19 under section 564(b)(1) of the Act, 21 U.S.C. 360bbb-3(b)(1), unless the declaration is terminated or authorization is revoked sooner. Performed By: #### C TB #### [facility] [address] [place], [place] [address] Dr. Bal Stallings SARS-CoV-2 (COVID-19) RNA MERLYN+probe Ql (Unsp spec) Negative Normal NEGATIVE [facility] Comment on above: Performed By: #### C VDTBH #### [facility] [address] [place], [place] [address] Dr. Bal Stallings Office Visit (Cardiology)on 02-20-2022 Follow-up visit Diagnoses/Problems Assessed Dizziness (780.4) (R42) Near syncope (780.2) (R55) PVD (peripheral vascular disease) (443.9) (I73.9) Body mass index (BMI) of 21.0 to 21.9 in adult (V85.1) (Z68.21) Benign hypertension (401.1) (I10) Orders Benign essential hypertension, Dizziness, PSVT (paroxysmal supraventricular tachycardia) Changed: From Metoprolol Tartrate 25 MG Oral Tablet TAKE 0.5 TABLET Twice daily To Metoprolol Tartrate 25 MG Oral Tablet TAKE 1 TABLET TWICE DAILY Chief Complaint MACARIO ASH is being seen for a 1 month follow-up of palpitations. 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 At the last clinic visit pt was started on low dose BB. Patient underwent EP study January 09, 2022 which did not show any inducible SVT or significant ventricular tachycardia. ABC parameters were all within normal limits and patient underwent a ILR implantation to assess for ongoing etiologies of his near syncope/syncope. Since the procedure patient reports he had a few episodes of near syncope but no dom syncope. He denies any chest pain, shortness of breath, palpitations. Overall he does report that the episodes have gotten further apart and also smaller in duration. Patient reports he has been feeling fairly well. A 12 point ROS was done, and negative unless otherwise stated in the HPI. Dizziness HPI: Patient states that he had an episode about 3 weeks ago where he had been in his usual state of health. While he was driving he felt very dizzy had some tunnel vision and had pulled over and just felt extremely weak. He denies any dom loss of consciousness. Since then he states he was having episodes of dizziness mostly with activity never with loss of consciousness. His initial episode while driving the car lasted for about 10 to 15 minutes. Subsequent episodes were about 5 to 10 minutes in duration. He denies any dom syncope, chest pain, shortness of breath, palpitations with any of these episodes. He does note 1 episode woke him up at 4 in the morning where he just felt something was wrong and then it completely resolved in 5 minutes. Patient's primary care did his initial evaluation appropriately with a 7-day pvc monitor and an echocardiogram. Patient also underwent a carotid ultrasound. Patient today in the office states that over the last 5 days he has had no episodes he had noticed an decreasing frequency in his symptoms since his original episode. 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 Patient states he quit tobacco use about 37 years ago. He also quit alcohol use 43 years ago. No drug use. 2 cups of coffee a day. No significant family history of heart disease. Of note patient was previously seen by a neurologist who started the patient on Plavix due to evidence of some mild carotid disease on vascular ultrasound however subsequently he was seen by a vascular medicine specialist and Plavix were discontinued however statin has been kept. Active Problems Problems Benign essential hypertension (401.1) (I10) Benign hypertension (401.1) (I10) Body mass index (BMI) of 21.0 to 21.9 in adult (V85.1) (Z68.21) Carotid atherosclerosis (433.10) (I65.29) Carotid stenosis (433.10) (I65.29) Dizziness (780.4) (R42) Former smoker (V15.82) (Z87.891) Quit smoking 20 years ago Near syncope (780.2) (R55) Pre-op testing (V72.84) (Z01.818) PSVT (paroxysmal supraventricular tachycardia) (427.0) (I47.1) PVD (peripheral vascular disease) (443.9) (I73.9) Syncope, near (780.2) (R55) Surgical History Problems History of Complete colonoscopy History of Facial surgery Current Meds Medication NameInstruction amLODIPine Besylate 10 MG Oral TabletTAKE 1 TABLET DAILY DIRECTED. Aspirin EC 81 MG Oral Tablet Delayed ReleaseTAKE 1 TABLET DAILY. Atorvastatin Calcium 40 MG Oral TabletTAKE 1 TABLET AT BEDTIME. Cefdinir 300 MG Oral CapsuleTAKE 2 CAPSULES BY MOUTH once DAILY CeleBREX 200 MG Oral CapsuleTAKE 1 CAPSULE Daily Cetirizine HCl - 10 MG Oral TabletTAKE 1 TABLET DAILY. Clotrimazole-Betameth asone 1-0.05 % External LotionAPPLY TO THE AFFECTED AREA(S) TWICE DAILY Cyanocobalamin 100 MCG/ML SOLNonce monthly Cyanocobalamin 1000 MCG/ML Injection SolutionINJECT 1 (ONE) ml INTRAMUSCULARLY once a month Diclofenac Sodium 1 % External GelAPPLY TO THE AFFECTED AREA(S) DAILY as directed EpiPen 0.3 MG/0.3ML DEVIUSE DIRECTED. Lisinopril 40 MG Oral TabletTAKE 1 TABLET BY MOUTH DAILY Metoprolol Tartrate 25 MG Oral TabletTAKE 0.5 TABLET Twice daily Mupirocin 2 % External OintmentAPPLY TO THE AFFECTED AREA(S) with a Q-TIP TWICE DAILY FOR 7 DAYS Omeprazole 20 MG Oral Capsule Delayed ReleaseTAKE 1 CAP (more content not included)... Normal [employer] Coding Summary.on 02-17-2022 Coding Summary. CD:[id number] G h0bWw+PGhlYWQ+EP7ZBWV tB32voJFkkQ9BZ6fYNP1E PEBGAEVJGR4KAF3zxIZ0P DzuM8SvclQh UnvccUOwHP50YNx4ABE7i JqyVQjcnS9puUUqO4h5Dw OhJL30gT07LFctVYGyZxE 3LjZpbjsgbWFy R3yvYoDszKIcWig+PHRhY mxlIHdpZHRoPScxMDAlJy OhmJmlNI4tFz6lWPJoAZO vbGxhcHNlOiBj r8tmHWBgETurMS4acNbiA 3PouVL4RGUpr3c4Ho19rU I+DYIjCLT1kXyrJEuam15 2AoAlg4xfCAP9 jQXsQFiqFCT1Z10to0E2Z NVoKVSpBIE2bNW9yW6fgA uiteusY8TbtQVfZxJ2QUM 8iBBqvH7jzCky yynqcX2iSiv+E46VFK8BQ FAHXC6LLwz5S8JzRzrphQ I+NB01EINiUI94xXYcaQY eu5dfaYq4BvQq IKMhJSC5xTqpEWnyw3OuT TKdY01npTOlr7I7NVYwoU hfgZYvUsRmdZF6tJ9nDGb fplnzo5rqdafs Wwarn0cqnr11mR41G06uH ToeOUJaATW6SPZhWGAwdT xwgn4quG8iOu7+GVxnr8t ly8pvaJp9ZdTd JHUifzSsfNpxZSG9v3AxT s65H7ZhfJfpx8TfOoh6km 96kYZjx1E4uRR7HOdxFOI vkW4aKFetSlG7 QPCwRgRopS11cYErGLpzQ e1qrUqstSseRA9wLTKtgd ulNQGroC8rALVudHMzrVq sPV6uQMVyzeyo c711XfAfVUC6DMYvbTDaO 9BsbY1jDjNqXDRtZWEzM1 OzvAMbAYwtH889NUrjHaU 7CAWhgkNmM5Te VHTebTebHwY8c8G4Nt7Rv 1IgxmlpXYF3LXipFAC0Mv NzZkWgCaU7L1KkObj0TTN ceMfwEH1uG2Ip JUVxjamwkkdktJG7DTBeJ AWtiB24vWLcNCkeAc2bc6 F9h298EYQzRIXeuM96Vr5 udDogMTBwdCBU tD6lumkct5vlrcooDuXiW WPrOPv4RAp5ZXTkgGxmFk XcEPR2SfW6VWL3iDQizG1 noGntrjjckG1x Oyc+Y10isR4tQVA3VXL3u ydtXMCkhuLjSV94OP58E0 RyPjwvdGFibGU+PGRpdiB mcOtbDX4vEbHg o0rym6BpRGbbP7JjVWQmB DydJsl6PEVyDCL8jQK7dM 6dMLYnQAznj5A0rHV4C1P ovwOsgv4pl5yi PJGxYDayL57oeWHgq0I2U ACylLC8ATFjgEzgUbMsiE 93Oyc+OBLkrXyey5GcHem fm9gen7srxRo0 JxZnZTSnutNgkUmtWHK6z 6EyJl23X45yRIqeKSBpVH YwFUIwIYNqtBzldf3gjI7 wIi8+PGNvbCB3 kGY3hQ4mHYFoWwI9JIcnL 126PwAaoOGiHymxj1vgn3 pvePr0VhShQSQdfyCdeHi uFOQ5e5LvSy81 H93vUYrxBMCdTPReDRDuT KMzeEgpqy8iyO2sIl2+PC 6pe9ulvw29qK70zOP+PHR cABA7fZwpXOsp FGFqxA5nKJqtFdM1RNGcB wZemA99xYNcNQzbCy9chP hacRhzUZ7yCDQfrynpj01 1JvBul2fmNBYr nXSoCTmuOKW5Z24lv5P2U JDhPUIdLZA1eQZ5kA8xpG lnbjogbGVmdDsgdmVydGl oPGokUWsfM539 IHRvcDsnPlBhdGllbnQgT uLlVVd7P3JaLle0KVMwgJ reYT4voQBaTOvzCc0niOf qjOtzKT2yUIUb boikn833SoKlk7vjNLDwa YZrGOnvGMW7Q78ek4N4WU RnSTUdKSH9yGM1oL7lnAa nbjogbGVmdDsg roQznVqoOKupYLvhE756L HRvcDsnPkJpcnRoIERhdG Z2BW65TY21lMWsk5W1pSB 8E4GaXVLtagac zviiuDL6YPPkKGDohI82V a0isNpfOw1iWVVaPAM4CJ PnrZDlR4QnwM1nJmXpCDK lNTJfE8HaaOVi FPgyE451SXgtNaJ1QPGiq mVcP5TjEFPelYtaUtE8g0 D1Nm7AV5W5VR88FG69qWR ce1G7lXH0J4Rt GIRvtvxkjejehXW6YJIiV BZtuU78Gm9txQsbMp0yDV PaARS2XKFgaQLlF9YvfW2 yOiAjMDAwMDAw Z3XeqKSlXAnmO618XUnqS zH9OUJqkzMsI3XbAYPtdJ waZmT9h7A9Ag7VHPd2QW9 1NV67zYMrv8Y3 xEA0U9YmOXWjydlbpookn YZ2YBLqAFVwqH14Uz0jvD ovKl9zFLMgJLL7APYnnJW yF8EzsD0nHjBr FJNaKGKpR3BsxKBaMWhuZ 694PUhhLsQ8BWJstsNqE5 GyWXWxhArtNaF3f4N6Ha1 NREStXZ49PVR2 nFB8RM03BJ45Y4FuBseeb GFibGU+PHRhYmxlIHdpZH RoPScxMDAlJyBzdHlsZT0 iLf0zBNJzSHSu nNmblQIbEiTcy4lrOAHfC AavGJ5lbXuhQ7RaaKO8YN Ulc4t8Xo19H70eH1KghSB +CPWqoYV3zWD9 lN4jHsKtOuJ7JTdkK815E uOagYAlIixfb6enj1npaI j9ZqN2DAIocgBshHeiSYZ 4p2NoSz14L81v IHdpZHRoPSIxNSUiIHZhb Ckwps2fnS6tGk9+PGNvbC V6aVP9sM5qZqJvSzI8HZg lM402MvPysAHv Iiddt7qhj5risNt0FiToI NGyghFdmXajLUR9u0KfOs 35U8UmcGgzy5HyIvs4vd3 3fHVwj1Q8jTL6 Y3HnIICxjhewrGRvgVyvX V5qFFLclfkySKDdoW9wJG MaF0y0ElQvZuR9YMacH8Q myrM2CVHlfOQq KCigQVO9A29bz6F5NQEuT ZYtULE4jJX3rM1bdKpsno ogbGVmdDsgdmVydGljYWw hVSdnA716LIDn iTlpTFDiyZ8nERLpiLPuq GktIJ7lFCQlivhjDjLGQ8 wbSIoCIAxPBF0eMafsiFP +ELMiUDE0wDxj GEkuITQjaL7lRFDlH6n8C qEdNaR3XEqwJ2MkDGXgym raVw04pK4zHeIgRdI0LYx bA8AhbzQ9IIEz bIIlZXgyQDN2J46wi3I8K AQcSCXuZKJ5hIB9rR4klQ lnbjogbGVmdDsgdmVydGl rQLtlNZlcX801 VKEkbYteTtB0LvVbAxX5G kd5G3GuVzy5NMYrmSoiIJ 5odCHbBVutQz6uxKqjbWq xFQ8pFGJohlfl PFPlcI9rEMLduWXklEstF X6yHZOhdvsrk703YiCfXJ M0FCFkbQCrR9NthJ9eMcE bGWCyYDMfJ6Ld tSGvOMkzA502KCavBwG7M LIehpOiD1NdXLWdyCgiRv M9w9N0De10RTNELHIrosk vdGQ+PHRkIHN0 fLyuUQxaUXFywQ1oQKDlZ 3m9PpRwHkT2BZyvM2WeZL AgmwbaBf83pA8rGpEvEfF 0TOhhW6XaekT9 GEGosBUtFGprYKG1N25my 6W2DSWjAJUtRZG7mTN9nY 1hbGlnbjogbGVmdDsgdmV ydGljYWwtYWxp B972IQVkiOvzAi7tzJB3R 5KmNck4HXFveEhhCP7bdL WcMXzwFk6bxRnacRtkSB6 wNTBpbjtwYWRk bL1sKFZylYHpfLkiRB7jS APksdwop484JjCzBTL9UB NhoOCuG1NdgC1zXsOvKWL qJRBkU9BxuCXu CTyzL199HMesXrB5ECOof wWsR1RjYWXxhOfgBnP8o6 P4Hd2ABZtfSN5nsfRwKW6 sudZ3Y1XtGwpi dHI+MW49RZTfHF86oLHke WVpw8btkKg2InQmRTBxSM A7gMfmRJwcu4PsMXQwE73 heODgy4T8MIAm lSsrwHSfKiBkuYF5fV5wV Vbwszpnk6sptthuLpidp8 shge52eJ46X46mKLqfOOF oPSIzMCUiIHZh cNwfsb1lqH6cBi2+PGNvb SZ7eWG8yH8jDvQjLfK6QK enS447JcPlcMZcRweto6n lb1ksnOf2GcIp MWQcpmQrtHqnPJG4j2QmM e03Z76mPNhoADYvPJApZK WpLALdySnqen9voQ3oLu1 +QV7og6cqqs21 mH11fZP+ZMPzAKT3zZteI JkyFSNjeL8rVRqgVkM3VS SrKwKknW06xTWrDAdeOg6 vxIpygXrhIG6m HWPqqbqle940TlHpw0czS WCwoCZiNAsbYUW5C17oq4 S8KWJmISQqDCS8gUK3kA9 hbGlnbjogbGVm dDsgdmVydGljYWwtYWxpZ 847ACPquBzaNlIlqVQzN5 uinwTEWK5wNbfqbII+PHR rASG0dVfrVEca JGUvkC5hEYMsV9r3McOoI mY5AItsQ9LhcbX6XNWtzA OeIAAtvIPOuO3mlqqmr1t vcjogIzAwMDAw PJz8QVj0HGKcdMctEiItS VL8QrW6ZXE4fHWlxV6meI bytgmqmU7nAxr+RklOOjw vdGQ+PHRkIHN0 lNejKJdcDHTgdE9nPCUgO 3s7ZfNfTwL7UZckO8Ckno D8WOLryGXlUBTukXMPqV0 omnpaq3wjnshr QwSsWZUsJXx4QMy6YRMmt SxbFcEuMOW1EjA0DFL3jI JayJ6koXliwavypN7kHml +TVJOOjwvdGQ+ JMBqCNA9sTbaRJscTVAub V3bYQNnY5j4XoWnDaL5VG brH7BasvQ5DPGcyNDqBFH guDBYqX1vjglc h3bqrnefKfLfFIYnUGe4Y Yr6LAFqtGxbBfBhMFU1Io D1KTO1hLYynW7teHlvhji nfI1jTlh+UGF5 JQT9WB01AL47X7QnHthcr GFibGU+PHRhYmxlIHdpZH RoPScxMDAlJyBzdHlsZT0 pAw8tIAMyYNPb bGxh (more content not included)... [facility] Consent for Treatmenton 01-17 Consent for Treatment [id number] [facility] [id number]# 1.00CD:127 Normal [facility] Office/Clinic Note-Physician on 02-05-2022 Office/Clinic Note-Physician [id number]# 1.00CD:127 Normal [facility] Patient Correspondenceon Patient Correspondence [id number]# 1.00CD:127 Normal [facility] Patient History Officeon Patient History Office [id number]# 1.00CD:127 Normal [facility] BASIC METABOLIC PANELon 12-17 Anion gap [Moles/Vol] 15 mmol/L Normal 10 - 20 [facility] Comment on above: Performed By: #### B MP #### [address] [id number] Calcium [Mass/Vol] 9.4 mg/dL Normal 8.6 - 10.3 [facility] Comment on above: Performed By: #### B MP #### [address] [id number] Chloride [Moles/Vol] 106 mmol/L Normal 98 - 107 [facility] Comment on above: Performed By: #### B MP #### [address] [id number] Creatinine [Mass/Vol] 1.01 mg/dL Normal 0.50 - 1.30 [facility] Comment on above: Performed By: #### B MP #### [address] [id number] GFR/1.73 sq M.predicted among non-blacks MDRD (S/P/Bld) [Vol rate/Area] 73 mL/min/{1.73_m2} Normal >90 [facility] Comment on above: Result Comment: CALC ULATIONS OF ESTIMATED GFR ARE PERFORMED USING THE 2020 CKD-EPI STUDY REFIT EQUATION WITHOUT THE RACE VARIABLE FOR THE IDMS-TRACEABLE CREATININE METHODS. https://jasn.asnjournals.org/content//ASN.405 6837273 Performed By: #### B MP #### [address] [id number] Glucose [Mass/Vol] 120 mg/dL High 74 - 99 [facility] Comment on above: Performed By: #### B MP #### [address] [id number] HCO3 (Bld) [Moles/Vol] 21 mmol/L Normal 21 - 32 [facility] Comment on above: Performed By: #### B MP #### [address] [id number] Potassium [Moles/Vol] 3.9 mmol/L Normal 3.5 - 5.3 [facility] Comment on above: Performed By: #### B MP #### [address] [id number] Sodium [Moles/Vol] 138 mmol/L Normal 136 - 145 [facility] Comment on above: Performed By: #### B MP #### [address] [id number] Urea nitrogen [Mass/Vol] 17 mg/dL Normal 6 - 23 [facility] Comment on above: Performed By: #### B MP #### [address] [id number] CBCon 01-09-2022 Erythrocyte distribution width (RBC) [Ratio] 13.5 % Normal 11.5 - 14.5 [facility] Comment on above: Performed By: #### C BC #### [address] [id number] Hematocrit (Bld) [Volume fraction] 43.4 % Normal 41.0 - 52.0 [facility] Comment on above: Performed By: #### C BC #### [address] [id number] Hemoglobin (Bld) [Mass/Vol] 14.4 g/dL Normal 13.5 - 17.5 [facility] Comment on above: Performed By: #### C BC #### [address] [id number] MCHC (RBC) [Mass/Vol] 33.2 g/dL Normal 32.0 - 36.0 [facility] Comment on above: Performed By: #### C BC #### [address] [id number] MCV (RBC) [Entitic vol] 94 fL Normal 80 - 100 [facility] Comment on above: Performed By: #### C BC #### [address] [id number] Platelets (Bld) [#/Vol] 222 10*3/uL Normal 150 - 450 [facility] Comment on above: Performed By: #### C BC #### [address] [id number] RBC 4.61 x10E12/L Normal 4.50 - 5.90 [facility] Comment on above: Performed By: #### C BC #### [address] [id number] WBC (Bld) [#/Vol] 9.7 10*3/uL Normal 4.4 - 11.3 [facility] Comment on above: Performed By: #### C BC #### [address] [id number] COAGULATION SCREENon 01-09-2 022 aPTT Coag (Bld) [Time] 29 s Normal 26 - 39 [facility] Comment on above: Result Comment: Note new reference range as of 09/16/2021 at 10:00am. Performed By: #### C OAGS #### [address] [id number] PT Coag (PPP) [Time] 13.3 s Normal 9.8 - 13.4 [facility] Comment on above: Result Comment: Note new reference range as of 09/16/2021 at 10:00am. Performed By: #### C OAGS #### [address] [id number] PT, INR 1.1 Normal 0.9 - 1.1 [facility] Comment on above: Performed By: #### C OAGS #### [address] [id number] Order Reconciliationon 01-09 Order Reconciliation Page 1 Discharge Reconciliation Document Reconciliation Type: Discharge requested on behalf of Addy Alas (Physician) done by Addy Alas) Discharge - Reconciliation: 09-Jan-2022 11:14 by: Addy Alas) Home Medications EnteredHOME MEDICATIONS AT DISCHARGE DateReconciliation Comment/ Additional Information amLODIPine 10 mg oral tablet 1 tab(s) orally once a day 08-Jan-2022 11:30 amLODIPine 10 mg oral tablet 1 tab(s) orally once a day 08-Jan-2022 11:30 amLODIPine 10 mg oral tablet is continued as amLODIPine 10 mg oral tablet aspirin 81 mg oral delayed release tablet 1 tab(s) orally once a day 08-Jan-2022 11:22 aspirin 81 mg oral delayed release tablet 1 tab(s) orally once a day 08-Jan-2022 11:22 aspirin 81 mg oral delayed release tablet is continued as aspirin 81 mg oral delayed release tablet atorvastatin 40 mg oral tablet 1 tab(s) orally once a day (at bedtime) 08-Jan-2022 11:22 atorvastatin 40 mg oral tablet 1 tab(s) orally once a day (at bedtime) 08-Jan-2022 11:22 atorvastatin 40 mg oral tablet is continued as atorvastatin 40 mg oral tablet CeleBREX 200 mg oral capsule 1 cap(s) orally once a day 08-Jan-2022 11:24 CeleBREX 200 mg oral capsule 1 cap(s) orally once a day 12-Jan-2022 11:13 Discontinued; Copy/Discontinue CeleBREX 200 mg oral capsule is continued and modified cetirizine 10 mg oral tablet 1 tab(s) orally once a day 08-Jan-2022 11:24 cetirizine 10 mg oral tablet 1 tab(s) orally once a day 08-Jan-2022 11:24 cetirizine 10 mg oral tablet is continued as cetirizine 10 mg oral tablet clotrimazole-betameth asone 1%-0.05% topical lotion Apply topically to affected area 2 times a day 08-Jan-2022 11:24 clotrimazole-betameth asone 1%-0.05% topical lotion Apply topically to affected area 2 times a day 08-Jan-2022 11:24 clotrimazole-betameth asone 1%-0.05% topical lotion is continued as clotrimazole-betameth asone 1%-0.05% topical lotion cyanocobalamin 1000 mcg/mL injectable solution 08-Jan-2022 11:25 cyanocobalamin 1000 mcg/mL injectable solution 08-Jan-2022 11:25 cyanocobalamin 1000 mcg/mL injectable solution is continued as cyanocobalamin 1000 mcg/mL injectable solution diclofenac 1% topical gel 08-Jan-2022 11:26 diclofenac 1% topical gel 08-Jan-2022 11:26 diclofenac 1% topical gel is continued as diclofenac 1% topical gel EpiPen Auto-Injector 0.3 mg injectable kit 08-Jan-2022 11:26 EpiPen Auto-Injector 0.3 mg injectable kit 08-Jan-2022 11:26 EpiPen Auto-Injector 0.3 mg injectable kit is continued as EpiPen Auto-Injector 0.3 mg injectable kit Florajen Acidophilus oral capsule 1 cap(s) orally once a day 09-Jan-2022 06:21 Florajen Acidophilus oral capsule 1 cap(s) orally once a day 09-Jan-2022 06:21 Florajen Acidophilus oral capsule is continued as Florajen Acidophilus oral capsule lisinopril 40 mg oral tablet 1 tab(s) orally once a day 08-Jan-2022 11:26 lisinopril 40 mg oral tablet 1 tab(s) orally once a day 08-Jan-2022 11:26 lisinopril 40 mg oral tablet is continued as lisinopril 40 mg oral tablet Metoprolol Tartrate 25 mg oral tablet 0.5 tab(s) orally 2 times a day 08-Jan-2022 11:27 Metoprolol Tartrate 25 mg oral tablet 0.5 tab(s) orally 2 times a day 08-Jan-2022 11:27 Metoprolol Tartrate 25 mg oral tablet is continued as Metoprolol Tartrate 25 mg oral tablet mupirocin 2% topical ointment Apply topically to affected area 2 times a day 08-Jan-2022 11:27 mupirocin 2% topical ointment Apply topically to affected area 2 times a day 08-Jan-2022 11:27 mupirocin 2% topical ointment is continued as mupirocin 2% topical ointment omeprazole 20 mg oral delayed release capsule 1 cap(s) orally once a day 08-Jan-2022 11:27 omeprazole 20 mg oral delayed release capsule 1 cap(s) orally once a day 08-Jan-2022 11:27 omeprazole 20 mg oral delayed release capsule is continued as omeprazole 20 mg oral delayed release capsule triamcinolone 0.1% topical cream Apply topically to affected area 2 times a day, As Needed 08-Jan-2022 11:28 triamcinolone 0.1% topical cream Apply topically to affected area 2 times a day, As Needed 08-Jan-2022 11:28 triamcinolone 0.1% topical cream is continued as triamcinolone 0.1% topical cream Current OrdersDateHOME MEDICATIONS AT DISCHARGE DateReconciliation Comment/ Additional Information Lisinopril Tablet (PRINIVIL, ZESTRIL)DOSE = 40 mg Oral Once 09-Jan-2022 11:13 Lisinopril is not required Sodium Chloride 0.9% Infusion IV Bag Volume = 1,000 mL Run at: 10 mL/hr IntraVenous 08-Jan-2022 16:37 Sodium Chloride 0.9% Infusion is not required All Active Home Medications at time of Discharge Reconciliation: 09-Jan-2022 11:14 amLODIPine 10 mg oral tablet 1 tab(s) orally once a day aspirin 81 mg oral delayed release tablet 1 tab(s) orally once a day atorvastatin 40 mg oral tablet 1 tab(s) orally once a day (at bedtime) CeleBREX 200 mg oral capsule 1 cap(s) orally once a day cetirizine 10 mg oral tablet 1 tab(s) orally (more content not included)... Normal [facility] Patient Profile - Preop v3on 01-09-2022 Patient Profile - Preop v3 Patient Profile - Preop: Initial Info: Patient DemographicsName: MACARIO ASH Date: 1935 Address: [address] [place] [address] Primary Phone [phone] How to be AddressedBill Spoken Language PreferredEnglish Source of Informationpatient Stated Reason for Admissionablation Primary Contact Name and NumberBranden Ash [phone] Medications Brought to Hospitalno General Health: Weight in kg99.5 kilogram(s) Weight in pqk692.3 pound(s) Weight Methodactual (measured) Scale Typestanding Height in feet5 feet Height in .94 inch(es) Height in cm180.1 centimeter(s) Height Methodstated BMI (kg/m2)30.675 square meter Patient or Family Member Reaction to Anesthesiano previous reaction Blood Avoidance/Restriction snone Previous Transfusion Reactionnot applicable Health Mgmt: Symptoms/Conditions Managed at Homecardiovascular; musculoskeletal Cardiovascular Symptoms/Conditionsdy srhythmia; hypertension Musculoskeletal Symptoms/Conditionsba ck pain Barriers to Managing Healthnone Relationship/Environ: Lives Withspouse Living Arrangementshouse Resource/Environmenta l Concernsnone [facility]ticipated [facility] Anticipated at Transitionnone Tobacco Use: Tobacco Useno Pre-op Checklist: Arrival [id number] Arrival Time05:09 Procedure Typeablation NPOyes Last Food [id number] 18:00 ID Band On Patientpatient ID (name), allergy, falls risk Consent Signedyes H&P Completeyes Anesthesia Assessment Completedpending EKG Performedyes Chest X-Ray Performedyes Preop Antibioticsnot ordered COVID 19 Results in Last 7 daysnegative 01/06 Chlorhexadine Bath Givennot applicable Nasal Antiseptic Appliednot applicable Soap and Water Bath the Night Before Surgerynot applicable Hair Washed with Shampoonot applicable Bowel Prepno Surgical Site Infection Preventionyes Pain Scales and Managementyes Additional Information: Information Review: Allergies, Home Meds and Significant Events have been Reviewed and Verified with Patient/Familyyes Allergy, Intolerance, Adverse Event: Allergies: Cipro: Drug, Hives/Urticaria, Active penicillin: Drug, Rash, Active Electronic Signatures: Dasia Mcfarlane (TYLER) (Signed 09-Jan-2022 06:09) Authored: Initial Info, General Health, Health Mgmt, Relationship/Environ, Tobacco Use, Pre-op Checklist, Additional Information Last Updated: 09-Jan-2022 06:09 by Dasia Mcfarlane) Normal [facility] Coding Summary.on 01-08-2022 Coding Summary. [id number] G h0bWw+PGhlYWQ+HG0PEDA wD56wrGEcoP2PW8bOWR3I ERSQEPBVJS2SJV2dmZZ9R KahL7UszvVh UguwkPWlUL81OWj2ODF7t YhdRZzwlU0tgYZvN4m0Wf VqDE95pU32IYwpIFItPaW 3LjZpbjsgbWFy J3coYqOnrVPvCuh+PHRhY mxlIHdpZHRoPScxMDAlJy HbeCzhXQ3sRg5dGUWnLTI vbGxhcHNlOiBj y9glECUlESwaUU3vaWomR 6LpjTR6OHEun7m7Lo76pP I+EQPdKLY7mVufHJmav15 7RbZdr7nzCFH4 dKTsNQwrRPF3G20pj2H7K IRsIGQkLPO7jNX8nP5dhA cxqfcaA4QyxHKkAsM7HEC 9dNKhqW3vvCuw svqwuI0lLus+J77ZJJ0KT FBMCQ2UIgd1L9ZjDjrliC I+GG83IQTfOH43oPUalWQ wx8xgiHi2HjQp CAXtRLV7uYruDUhsg5FfO IWrR20llBWai1X6IIYegB modINsAgDhtJA9cA9tOFj qdkzcu6lbujok Aidiw5lsku86rI38F33dE AiwXAXjADI3VIGaZWXkkR uthr5ayD9zJk5+PFndt1u wz1vtmMc9VmQd GOFeyvNjsGxpDWI5h2FjC o53N6KtiIctk4NiEox4js 51bHDtt4R1cFT2XYkiWGX miO3yXFiiDrV1 MFSoWmTxwM47uDKwZLecS y1obOegqUniGJ3hYUFcmr grYUExdH9gYVGsiGEkaKx eYT7oLLRkvmyv w327CrWrVLK9HGQlcAZwS 2KzpO0aRtIlKLKmUUZkK7 CgkOBaBSctJ896PPrrVkP 3MYVcioUvE6Ob IHFurQuwBkZ0l0L0Ux5Iq 9KuehajHGJ9IHvtNBUsCa G0DvIqRmX3V2MyOve6NXU ykYazYS7wZ8Cw LMPdqknwryxmxPR3BRAfP UWdmR89hWXkXYcaOk7kx9 L7q164OSBwIUNduV14Ig0 udDogMTBwdCBU wB3czkgvv0xhrhvtSqIiF KPyNJz3OVk5RCYwoIitGp KvEUK9HvK4HIG6gXAnoQ6 irGiazowkoN6i Oyc+X48stB5tUYI9UYL7w ggvFLAlceKjWV55FK68X5 RyPjwvdGFibGU+PGRpdiB kbBqgJI5wVtOr f9kno9NoEAzgP4TvUFCuZ MdnKnh8ZIEoXBS0fNL9eR 4zJZIpSVscu9V3bLE0A7Z xwvNcka1mg0kg XGBoAWveW58yuBSci6U5X AWqeRT0JNWuqDsuCsJabU 93Oyc+RYFmaCdtb7TkUxa vz7ici4rwfCd0 HiZeNEMqhmCxiMpyPZQ8e 9UxGl79R82hOJxqXSBrEE DrRIYvUFZqeJdbrv3kgI2 wIi8+PGNvbCB3 eGB8oU7mGJKcHqI3LGfwB 958PeWcyTLrFesvz4bau8 xawIl2DaAcANSdrdEuxPt iAZX6t8LsSe18 S71eXDjpWJQiJGUwHHSxX ORvdTcbbe2feL5wLf5+PC 9fg3moix16lI27jLT+PHR nHEF3nDxbDZbq XBJqrA5vMEdsNfB2RWMzY gUvtG44dHFlVDzcCq5czN ccdOwkMF9vAUHmfniiz79 9FeBec0uiGUSg mXEfZOxlHPT4Q87cd7H6V SEtVTSiDWF6kUC8gX5rlA lnbjogbGVmdDsgdmVydGl aCIajLWlhP884 IHRvcDsnPlBhdGllbnQgT lNjNNu7J8DnXhh2WWLjrR iaNC6ekHOlKPwkQl3vqRt piHfqKS5gCNEj nmwid492GtNpy1msPNWsk ZEqWIqhKXA7G59re2M0TE GoLDVxSWI3mSN6pB7yqVn nbjogbGVmdDsg obBoyLuxNEgsXUpnC495K HRvcDsnPkJpcnRoIERhdG K6JY00BV59gPTzx4B3mCL 0Q6YvKQTltehc cowypSV5LHPwCEZxaH79P r0luRolCk2uDJPmPJN0IU AkiAYmH9QjsG1cCcTnHYD hPLCyQ7KblNJz ESvoR912ZZpzLaL5OMZro eVjF9IuUJMwuEqrGeI0b4 I9Yv2YG1J8DU14FA80rOU eu2F4bDI6J0Oe HONhjijpvmffnDH9GVOmN MOnnL53Qs1ixHioAr4hJL YhVEY9CSItkFJvS0MuuH7 yOiAjMDAwMDAw D5GdxGCvGKxgG032DOapW kM2QYWvowEqH5OpGYAkpK qpGgU2y9G5Qm0ACEx8EX7 0TB69uSCdl7O4 qTU7H5SqMCBsatgymidjr CT6RYNxWUVwfJ79Ip4moI ftXn4gXVJhQXK2MPDyxIE pC1QxbP8xPaVo AKPfBSYwO9JxnBHyIQinA 379BXlxIgK0OXWlrnNjL0 JdBSZswIhyBfW7v9G1Tl5 XBGFiGP20NSE1 lSP4SZ07XW49M7ByHjbxf GFibGU+PHRhYmxlIHdpZH RoPScxMDAlJyBzdHlsZT0 sVr4bNLMfVAUc iYnpiWEtNjGau4liQUMkM LrsKT5fxCpnD7SmgSV0MQ Fii1p4Up23N44vH3OevBS +KUOrlCQ6pGW0 jA4dOlXjGvV6MCwoM928I pPawKMjDzgyp2vog7iviE v3QwU0ULTraxPmxBunXJA 8m4AlWm81P71b IHdpZHRoPSIxNSUiIHZhb Dejzf5uqZ0lLm4+PGNvbC C4fDA0gU1sTzFfRdB1YGm gH797IoEhyITs Rizej4rsg6znxWo8ZnSfW ZLuekKqcLppOAN5s0AvVw 47E8PipLadb9LlVdy2sj5 6wDCif0X6iKX7 Y4SqDAGxvxiytMRamLlwT T4qKXCaptynVYDbhS2cOL YkN2q5LrIvWxW4ASxcL3C vihT8NGFwmGOd KPlqABA5N43mb0Z2TUNhZ ISuSUS4iJH4oR6ddLxcsr ogbGVmdDsgdmVydGljYWw aIJboT371KWMd jEpkHWJekD1rSLDjkPRlf XloXN5gPFUgsbolJlKGH6 vpSRhGPBmKUL7pJlkpkBC +SGTeITY0eIez BQjrQMLntY0gUIOtA0i5M zYoDuN1YXevK3XtIQXwun vmAu33rI5hGmTiJnV6ENw uM9QgdhE9ZHAw rTWcKQhmAFR2I70qy5U4Z FIjDTDwLOB2kML5jX4keC lnbjogbGVmdDsgdmVydGl sSKzmGFtkM292 RZWtwGvaMbC5NoSsUeF2R mt0E7AkClc8OLCmwTurBU 8tpHQsVPunOz9slVasoQo fGO7eCREwzftl KACztO9dMMCwoLWxeAoeA R0pDFDbonhoy761ZiFaVL V9WQFazKSqG2JlkW9jNkG cGCMvFQHeQ3Kg ySWaIEqhM738IUzqKiX2Z UBjbvLwJ8AyDYPkxNfcJm U4f6B8Pn38GOQHEUOkpzd vdGQ+PHRkIHN0 sDiiQPgwJKVweD5bHLIkV 1s8LcNqKlJ5EZtoF9AuNW WpspetVv30lU7pSoHjQeW 4FAupV5GjvvI3 SGBhmIMnXYseRRI6W05zv 1V1AZRaXPUiFZY6zRK1tB 1hbGlnbjogbGVmdDsgdmV ydGljYWwtYWxp R226ZQZleObqGr5wvIU4R 1XwOer9JFTdcRyiOR4jnP BcOLmvTe6fnBxnrPftQN4 wNTBpbjtwYWRk hU7zYOPooKJnvSmvHH9xZ TPvuawcs111MgGsEYW2YC LuxSXoK3EsyU6vFqUhYLN xNBUwX6HoiAOu CEyqE264GTaqOdA9PTFsd xGtQ7SrWBSeyItoGyR8l2 N0Xy8XMQayFB2tyuMbKA2 ryjZ6C1IrQpes dHI+MX13KHPjUK78jKWpo QKnm8mlfTt4EnAnKWDvDI T0jNurJMrwx4YxRRMiP75 pnYTwv0M9QBNx qRjayBKqVqFygSE3eQ7cT Cqbkslit1rackdnHxwyb0 qhyb41cL33T44gLUsqLSP oPSIzMCUiIHZh qLiqtd7ymA6iGn5+PGNvb KC8yAY5qM6kYlKvWtO6PV cyR992IpIpdNPyJlklb7j vv3jyrUs3YnUd JSTukdBekMxvHIS4f0DnZ c44M14dKHisKDCwMCFcSP BeLZPftRsjwi6czZ9jFg2 +MA1ou0shwo67 cH41fVU+UUExUAP6qYiuH CvjBIZvcW1wXBwjBbV0OO BgStGvmV23lZMfFJaiAe3 kiZhdiNydSM1f LZTcwbtnk265OlHwh0whG VAjjQPzJMkcLHJ0M45ch8 O4ZZCxIOPdPUB3aOA6iS1 hbGlnbjogbGVm dDsgdmVydGljYWwtYWxpZ 031WMMxfDvbCqAneZBtN5 yiaoMQAF9yBzwmpSE+PHR vGVZ4yMfcBUqk FOJtgX1iRDDcT8g9XqTcJ zZ2SIniU6UejwJ3PAVzpH WcFDGpeZTVjU1kaedlp4f vcjogIzAwMDAw UGg2GQu4NZSyyJigBoYkJ UG8EzI5COU1sAIxeI2qvB gktjuafO4eXlq+RklOOjw vdGQ+PHRkIHN0 bEsmBIixQBOyqP4jMHIjS 4n6BeTgHvN4KNwlN7Unby Z5NKXaeYOdRRHtxIKDeF1 vgqubb3aeqdad MbUvJJZrWZh6QOx1LWQyv WmlBfVaOFL7GeQ3LAI0vQ TwnD7mvZlbnerzbS2qBil +TVJOOjwvdGQ+ CIEcWAH9jTuaGUkdUMPoe Y9fDNZkE8e1UvHmCeV5JJ rdV8KmuwS2HHUksQDaURX xbSWSxF4vnyyb n3ejyvmdBhOaWPCkDWj0R Hr2JJAelPirTqWpOVA4Hz P5QPK1sXIouA4dcOzijhb geF4sAmu+UGF5 TNP7YT83UZ63Z3TxZtdmg GFibGU+PHRhYmxlIHdpZH RoPScxMDAlJyBzdHlsZT0 aFs8nPRAmINWf bGxh (more content not included)... [facility] Consent for Procedure/Surger yon 01-07-2022 Consent for Procedure/Surgery [id number]#1 .00CD:127 [facility] Consent for Treatmenton 12-17 Consent for Treatment [id number]# 1.00CD:127 [facility] Discharge Instructionson Discharge Instructions [id number]#1 .00CD:127 [facility] IntraOperative Documentson 0 01-07-2022 IntraOperative Documents [id number]#1 .00CD:127 [facility] IntraOperative Documents [id number]#1 .00CD:127 [facility] Main OR Intraoperative Recor don 01-07-2022 Main OR Intraoperative Record IntraOp Document Type FTPM Summary Primary Physician: Bayron Rodriguez MD Finalized Date/Time: 01/07/22 14:50:10 Pt. Name: MACARIO ASH/Sex: 1935 Male Med Rec #: [id number] Physician: Bayron Rodriguez MD Financial #: [id number] Pt. Type: P Room/Bed: / Admit/Disch: 01/07/22 13:17:25 - Institution: Case Times FTPM Entry 1 Patient Times In Room 01/07/22 14:39:00 Out Room 01/07/22 14:50:00 Procedure Times Start 01/07/22 14:42:00 Stop 01/07/22 14:49:00 Anesthesia Times Last Modified By: Anna Garcia RN 01/07/22 14:50:04 Case Attendance FTPM Entry 1 Entry 2 Entry 3 Case Attendee Jennifer GAUTAM, Bayron Henry RN, Anna Ortiz RN Role Performed Surgeon - Primary Scrub - Primary Carpet Mechanic - Primary Time In 01/07/22 14:39:00 01/07/22 14:39:00 01/07/22 14:39:00 Time Out 01/07/22 14:50:00 01/07/22 14:50:00 01/07/22 14:50:00 Procedure LUMBAR EPIDURAL STEROID LUMBAR EPIDURAL STEROID LUMBAR EPIDURAL STEROID INJECTION(.) INJECTION(.) INJECTION(.) Comments Last Modified By: Anna Garcia RN 01/07/22 Anna Garcia RN 01/07/22 Anna Garcia RN 01/07/22 14:50:04 14:50:04 14:50:04 Entry 4 Case Attendee Yasmeen Staton Role Performed Senior Financial Consultant Time In 01/07/22 14:39:00 Time Out 01/07/22 14:50:00 Procedure LUMBAR EPIDURAL STEROID INJECTION(.) Comments Last Modified By: Anna Garcia RN 01/07/22 14:50:04 Perioperative Protocols FTPM Pre-Care Text: Implements protective measures prior to operative or invasive procedure, confirms identity before the operative or invasive procedure, verifies operative procedure, surgical site, and laterality Entry 1 Procedure(s) LUMBAR EPIDURAL STEROID Patient Identity Birthday, ID Band INJECTION(.) Verified (select at Check, Patient least 2): Participation Consents / H and P HandP, Surgery/Procedure Operative Site Present Verified Consent Marking Verified Surgical Site Yes Laterality Verified Yes Verified Procedure Verified Yes Correct Patient Yes Position Verified Availability Equipment, Medication, Prep Dry Yes Verified (If X-ray Applicable) PreOp Antibiotic No Time Out Anna Garcia RN, Myers Given Alexey SCOTT, Dalila Cain, Jennifer GAUTAM, Brionna Verma Amy Time Out Complete 01/07/22 14:39:00 Outcomes Met? Yes Last Modified By: Anna Garcia RN 01/07/22 14:39:50 Post-Care Text: The patient is free from signs and symptoms of injury caused by extraneous objects Allergy Information FTPM Pre-Care Text: Verifies allergies Entry 1 Allergies Reviewed? Yes Allergies Reviewed Self/Patient With Outcomes Met? Yes Last Modified By: Anna Garcia RN 01/07/22 13:38:55 Post-Care Text: The patient received appropriate medication(s) safely administered during the perioperative period Surgical Procedures FTPM Entry 1 Procedure Description Procedure LUMBAR EPIDURAL STEROID Modifiers . INJECTION Surgeon Description L4-5 MART Primary Procedure Yes Primary Surgeon Bayron Rodriguez MD Start 01/07/22 14:42:00 Stop 01/07/22 14:49:00 Anesthesia Type None Surgical Service Pain Management Wound Class 1 - Clean Last Modified By: Anna Garcia RN 01/07/22 14:50:06 General Case Data FTPM Pre-Care Text: Classifies surgical wound, implements aseptic technique, initiates traffic control Entry 1 Case Information OR Pain Proc Room Case Level Level 2 Wound Class 1 - Clean Specialty Pain Management Preop Diagnosis M54.17 Postop Same As Preop Yes Postop Diagnosis M54.17 Outcomes Met? Yes Last Modified By: Anna Garcia RN 01/07/22 13:39:18 Post-Care Text: The patient is free from signs and symptoms of infection Skin Assessment (Pre Procedure) FTPM Pre-Care Text: Implements protective measures to prevent skin/ tissue injury due to thermal or mechanical sources Evaluates for signs and symptoms of physical injury to skin and tissue Entry 1 Skin Integrity Intact, [place], Warm, and Skin Abnormality No Dry Outcomes Met? Yes Last Modified By: Anna Garcia RN 01/07/22 13:39:32 Post-Care Text: The patient is free from signs and symptoms of injury caused by extraneous objects Patient Positioning FTPM Pre-Care Text: Identifies physical alterations that require additional precautions for procedure-specific positioning, verifies presence of prosthetics or corrective devices, positions the patient, evaluates the patient for signs and symptoms of injury as a result of positioning Entry 1 Procedure LUMBAR EPIDURAL STEROID Body Position Prone INJECTION(.) Feet Uncrossed? Yes Left Arm Position Resting at Side Right Arm Position Resting at Side Left Leg Position Extended Right Leg Position Extended Positioning Device Pillow Under Head Large, Safety Strap, Pillow Large Under Knees Press Points Checked Yes By Anna Garcia RN Outcomes Met? Yes Last Modified By: Anna Garcia RN 01/07/22 13:39:43 Post-Care Text: The patient is free from signs and symptoms of injury related to positioning (more content not included)... [facility] Main OR Preoperative Recordo n 01-07-2022 Main OR Preoperative Record Holding Area Document Type FTPM Summary Primary Physician: Bayron Rodriguez MD Finalized Date/Time: 01/07/22 13:50:24 Pt. Name: MACARIO ASH Main Young/Sex: 1935 Male Med Rec #: [id number] Physician: Bayron Rodriguez MD Financial #: [id number] Pt. Type: P Room/Bed: / Admit/Disch: 01/07/22 13:17:25 - Institution: [facility] Holding FTPM Pre-Care Text: Verifies consent for planned procedure, identifies individual values and wishes concerning care, includes family members in perioperative teaching Secures patient's records' belongings, and valuables, maintains patient's dignity and privacy, and maintains patient confidentiality Entry 1 In Holding 01/07/22 13:48:00 Outcomes Met? Yes Last Modified By: Paris Schilling RN 01/07/22 13:48:44 Post-Care Text: The patient participates in decisions affecting his or her perioperative plan of care The patient's right to privacy is maintained Surgery Checklist FTPM Entry 1 Patient Birthday, ID Band Procedure History and Physical, Identification: Check, Patient Verification: Surgical Consent, With Participation Patient NPO after Midnight: No Date/Time: 01/07/22 13:48:00 Personal Items: Glasses Personal Items watch Comment: Complaints of Pain: Yes Pain Comment: 12/25 low back Operative Site Yes Marked By: jennifer Marking: Location: lumbar Availability Equipment, X-Ray Verified: Does Patient Smoke No Patient states Yes Comment - Adult mat friend postop adult Supervision supervision available Case Cancelled in No Holding Area see comments below for reason Last Modified By: Paris Schilling RN 01/07/22 13:50:18 General Comments: sandwich Finalized By: Paris Schilling RN Document Signatures Signed By: Paris Schilling RN 01/07/22 13:50 [facility] Operative Reporton Operative Report SURGERY DATE: 01/07/2022 PREOPERATIVE DIAGNOSIS: Lumbosacral radiculopathy POSTOPERATIVE DIAGNOSIS: Lumbosacral radiculopathy OPERATION: Interlaminar lumbar epidural steroid injection under fluoroscopic guidance at the L5-S1 interspace SOLUTION: 8 cc of 0.5% lidocaine with 40 mg of Kenalog; live contrast was also used ANESTHESIA: Local COMPLICATIONS: None PROCEDURE: After informed consent was obtained the patient was brought to the Operating Room and placed in the prone position. The area in question was prepped and draped in sterile fashion. An AP fluoroscopic view of the lumbar spine was obtained and after local anesthetic was administered into the skin a 17 gauge Tuohy needle was inserted perpendicular to the skin and advanced toward the L4-5 interspace under intermittent fluoroscopic guidance. There was extensive ossification over that interspace so the needle was withdrawn and redirected toward the L5-S1 interspace. The epidural space was identified via loss of resistance to air. Proper needle position was confirmed via AP and lateral fluoroscopy. Contrast was administered under live fluoroscopy which demonstrated appropriate epidural uptake and the absence of any intravascular or intrathecal spread. The local anesthetic steroid solution was injected incrementally. The needle was removed. Bleeding was nil. The patient tolerated the procedure well and was transferred to the Recovery Room in good condition. Sloane Carreon Dictated: 01/07/2022 [id number] Transcribed: 01/07/2022 [facility] Comment on above: Result Comment: Elec tronically Signed By: Jennifer GAUTAM, Bayron\.br\Date and Time Signed: 01/07/22 16:31 EDT Coding Summary.on 01-05-2022 Coding Summary. [id number] G h0bWw+PGhlYWQ+TM8XMCP xR77zhOLydN6RC9rTQU4V FHNWJWACRU2RKQ8iyES1W AaaP6XoufJs MkgqhEJlBL46GBx4QHY6t QecMLtknB7lyAJzU0s2Tt VbCV60aZ32SYapCJTyZtV 3LjZpbjsgbWFy B8pqRuOlcNPyWyk+PHRhY mxlIHdpZHRoPScxMDAlJy CenUtlJX9nCt0vGPJpCAJ vbGxhcHNlOiBj t2uvDYPkEXxnNJ3qpFsaH 4BmnHJ8YIQnq5e1Lt14dV I+APXqRTG7gVciFClml01 1MuMad1vaPAJ5 lOFqBLlkOZE0Y52vg9N8B SDzILOwQRB1oKR7xC0zdT mcxrttH5FbzIBpWnD5MBG 3bMPjbR9ehJzx qdneuH8mKlc+W28AJR8WZ OQGDC9PMlm2U3BnRnjiyB I+OU40ROPdJT23yLQxiUF bg2hsxUe2UjQt IVRcPVY4aRwzEWgwq9KmQ MZnR03fkBIgk6X7QJCihS lunJAtCiZkiHD4pF0pUSq amccvi9bhyqkr Ukhnr3nwon02fR48I96nQ AveFJMdHCS2RRMmICNswQ xpzl2rpL5uGj5+WPlby5w ry8segAs1DeBt JQHineQphMiiRZQ3p4BuW g62I0JusHxhc8DjSix3ny 30bHSvp0H6kWX2CVgrHQH ioI9hRZeiOxY2 FSWxIeTibP66tUVvAAuiJ f0rsInnmFtySR0tBQGuqx akOOUfeD3tPAKwpRSrjRg uEZ7hMYFumuvw v464YkMqWVV3YTZbfZGwU 5GycY9jOkKrLUMtQVQxZ3 LwnYDsPGulM873HOzpAdL 6YAKpqfGrG0Gr KOPbyUwoRxB4v3K8Ku7So 4KbfwxfTGU2YVjgWUCgVy UxMaSaJeV8A7UxBvz8WRE piNrbJX0nC9Fj CTBmisuoheopyEO6KMGrM FBtaS77tZNxAOzkNn9my0 O2v792TGTaBMObdJ01Wq2 udDogMTBwdCBU sS0onrevr3idwvvbNhNyJ VTjLUo4HRu4BDRjdBavDt BpZYT8IaT5RUX1aZTwpY9 oxBgabwnzyS5h Oyc+H80uuF9hAAQ2MGV1l guhONVmlnHdIE45SF92K2 RyPjwvdGFibGU+PGRpdiB ncTdeLC7iGpOy v0xfx6PmSTyfE4NxAWPgC UnqFav4UFNkLOQ4gXS7rQ 2gJJLyWJacm3O5oME4X5U dzgUara7lp9nb DQXsOBxrH02beLWpx4Q0C IJtzEY6UCQafCtlGgDouC 93Oyc+OWCouYuut3HmNbu et3lbt7oslWm6 OlOlVBDrdiQrhGzjDMX5g 3CvOr93U17hLEarSIRbEZ JoZGHyKAOjcDmcka6hpF7 wIi8+PGNvbCB3 kCE7jY2zAQQiDbX5CTcvK 702WbReyVZoQlqwv7dzq3 vsoIf7TlOdPMZzxsYmpYv lWEQ8u0ZmIn34 M06gVAodVYNeLMDvOJElG BHneXramz2slP4yAe5+PC 0rz0pkis06vA21uOB+PHR mBDM2gYliFZeh NQEebL2dXKoqXbI9VEEeK yGzeF87bPKsSGwgLq7qdB uuaPeaBF8nNBEbvdiys27 4JuArg6hfFENt pDLlBFdbSDV6B94nu1S8T KLnSCOwLNP7xJE9lJ4xlX lnbjogbGVmdDsgdmVydGl kQUwvGZlyK491 IHRvcDsnPlBhdGllbnQgT cIlZOt3O8EbSjk4HVHhzE kcQZ5kqDDmZDtkBg9ofRa bsJymPM4qEWPt sazzu742FqVte3cbFVOyt PVxYGwgVXZ6Q90yb8L3UW VhRTCjAPD3sVS3xH1pjIa nbjogbGVmdDsg zlFvqPnsHXynFMfwT803A HRvcDsnPkJpcnRoIERhdG S2PF54BG91kGXmz1K4yIP 7X2TgNPYswjdw irictAO3BOReIOEofK95T y2odWftHt8hWWCpGDA3ON DumDBdN8XyhA5cRaUrDQY rHFXhP8EvsTDo DRzoW556STqyUmY3MAXnx zCgO4RxRVMurTtrKdG8e1 F0Gn3LG4B9DU39RX00sKK se7G0gHY2D0An YQPpgwbbjszdoPR7RPVsG SRvkU36Ot3ecZrbIg0bPV BmBMA3UCXmwASkP3EguG1 yOiAjMDAwMDAw B1KxcFXwHNydW080MQohL oF4EAAdvqOzH7PnWMEqpT udKpS5z9C0Bk8WNAg5SI2 7NI41zDRoh2X4 mAZ5W8JwDGPspotijlwrw OE8OQSiOLGdgR68Cp1taM wsUw5lGLWlZKT4AEHohBE tS8WmsN3bYfTu JSCrTBHuN1UcqCZfEYbpE 925GGgbNhG0LGSwibYpR0 QsCZDbtGgqZgD1v8S4Xh6 GLEMzSN72SXL1 dOU3WD28IK15I6SpNvivx GFibGU+PHRhYmxlIHdpZH RoPScxMDAlJyBzdHlsZT0 bQo9vKQWnVHQa wTkdvAXrRaKbx9hcTNPfR FucRF2rpLjtA8KowLQ5DX Dwp1d5Ov94I46xI6DktNB +VRYbfLF9cTU0 aY9nFnZsVhZ5GQwmN198C hTkjXHnRfvgb1gvd5eatI k2FtN1JZOaosFegPekJRO 2y3CeOz62B85u IHdpZHRoPSIxNSUiIHZhb Hxvws2crM8cVa6+PGNvbC A9lDU3zD7lIcPlUjM0SPr bN419FjVnsRGr Pgdnh6znr4zfxSn4HbBlJ JVzecRztAmjSZV2p4SmSr 46U1CbvMufc9WgTbl0os3 7iEQli0F6tTU7 B8MnNXHyyaaxxFXdwJjjA M7zGMFtzwxyUFExdS0oUU MyP3l7HmGyVyH0SXwuO3I vaoZ7NHTbjAVj ALnmRVP7H84pb1K4BBOcV TQhUYL1xIF6mX4ryWyizj ogbGVmdDsgdmVydGljYWw bQKixF816CSMf oSwzPQZzkG9wIYLncHPzh KxfFS3aPAJdrlcuRnXKI9 mpAJmUVXsODI1kRyjzvIM +TMJvCOT1hEsr JIthXAMkgH0uVGHxB2s5E pAcKfY0QFfvI5TrQCDizg lpSz15gZ3pCzBuElD4CMh cO8GgxoW6OHBc pMWpYTnrMRI8L33ad8W8M HJaZKAbUER9tFU5qL4sbL lnbjogbGVmdDsgdmVydGl aTEqaSBdjS070 RTMdyErcLoI1ZrTjFeJ6D lr3L1BlRkg2JQXqiSraVO 4neZSlDSenNz9hkTjtsLb sPS0lTWUvxsjz KERajS3gLRRzsFCuzWnlL Q1pDHWrihkfx274ZrQbWC S1BMUpgUXgT7NidE7kYsL eAARrFMOgM4Rt tBSuJOxhK547WWqpExZ2D WEpleWpV1RpHPEkeYzjFg F4w0M0Xz38GDVHTMQwvyt vdGQ+PHRkIHN0 yHfaPWvkCAKcgZ0pXEJlB 5c2RyPgHxS5BQmeV9FzSS KenlbzMc76lJ8aTzJfIgN 8DTuuW9AjqlG6 DCOgtMPgBDvsLHG8P20oh 8V4TAQaICImBTS8tQM9uK 1hbGlnbjogbGVmdDsgdmV ydGljYWwtYWxp A751USLjeQyvRs8mgVY3B 3IaOpf8TIBrqBpuRT5dxZ OlJIlzDi7xyBkmgCgdNN9 wNTBpbjtwYWRk fJ9yLXNuyYUhsIzcLX1sE JYzokrki828LwCfBVF8EB DbrZCzG8VelI9iExDjQWB dBSRpG3AxaEAy DZowV127OKjoDcX2BXQjo iKhB3LqODDezVgvGfM4e6 O4Zo0PFSiwHK7penBjHY9 xgzA6V3SsOvnf dHI+QJ56BYRoBJ31bJYxq FMad1werJh4PwDeNMLgLA N5vJrnQQzqn6YtDRQtH08 ytSRyb3J7RHPq lAwsqRNsGkDdnLO4rM5bU Aausbghm2yvvuhyFpkhk7 xwgh40oV06H32eBFevPSY oPSIzMCUiIHZh zRyazk2aeL5bLl7+PGNvb PL1nOK0aD7xIdNbSzU8GQ wvO376IhMuuJFnLdhyv0c ce9yqaYh5LzVx REKrywBimZuoYNA1l9CwK a35A33aYVaoRVScHMHpWA CpNQPxpDlufr2stE2kFc5 +VZ1hk5mrwp81 mL93kRH+NLSxIBG2lXgiF NlrDTBgwD0vOKojYfX3YY GoSkDqgH77nZFnYGfvHg0 bvNxhlEwvLV1v ZERflmsjj218QiMng6feU THpuGBkNXzhDOZ0Y98sm8 U8FJCjUYJdQME0dWA2oN1 hbGlnbjogbGVm dDsgdmVydGljYWwtYWxpZ 354HFDzhUmsUxZdvCOjP0 vonfCYRG6hRgglbMQ+PHR lEMS4fOpyBQap ESRsnQ8wEMSuJ6j5YoPfK xB3UNviV9OgvmI0KEFreU PgTURwrTWSvG9myzjsl2o vcjogIzAwMDAw KIb2REn8EMNvcUlpQnWyW ZN1LvE2DYO7bTCvaL6qyY ajvjappI9hRtx+RklOOjw vdGQ+PHRkIHN0 mApmGCujRKGyaJ4jXSIcJ 9m2SzYqIqU8HNxgG1Tnhf I4IWMcpFNlYHXvzVTBjQ4 nlvsdr2tllhou HdEiXFOeEHf9EHg0OFSgv RrxJwKmCUI1GfD2TGT1cZ UbaR3zmPvhbkgfgW5jIux +TVJOOjwvdGQ+ DLKcZQQ2wLcfJGxcNBTlx Z8rSQFsV8s7BvRrKzU0XH huR0FtbrP5QALmmWPeWZM igNCPlY1atmio g3lbncqwNxVmOTLhVLw0U Sk5AHMfdRocXhKvLIY4Pf X2NAV7aHZrnQ6yeOlndvo wfU9sMny+UGF5 KLD9FO48HD01B2PtXjpcl GFibGU+PHRhYmxlIHdpZH RoPScxMDAlJyBzdHlsZT0 kLj4dIQUwXZWg bGxh (more content not included)... [facility] Coding Summary.on 12-30-2021 Coding Summary. [id number] G h0bWw+PGhlYWQ+UD8ZQBM kP79rzDPmgD6VV3vZWD6J SSJZELWZXU8GDW1aoXM6K DprQ6DmccFr DvkdyCAuQH73QXk9NHN2k UsfEEeurQ0kuYPiL4r7Yz GoER42eW81DAryAFTiIzS 3LjZpbjsgbWFy U8seMaWnvRTtZjx+PHRhY mxlIHdpZHRoPScxMDAlJy YieZijZD7zNi9hHIPnAID vbGxhcHNlOiBj g4dsNIJnDCrsEH9juFvgR 9AfgIY7WYZmf1q2Ok23oT I+DUQbNAO0dDxsELvwb37 1WxRvw3obNKR5 nJXiRVszUEP5A96dn0W1H DLnILWdOLK4wJY2tX0yiQ yigdhvO8BomBVpOsT3PBN 7rCTwxL2mtGcz fekuzC3wWcu+O42BPE9HP EFQDN8BPth1G9CkGgarsS I+VS45STDcFU99bFDxaQG xn6equNm2HeBp BDXlVXR5hGbpBDcbc7PkX ATbL49xdWDnx7X1SUVoeA rigWCfEhIroZM7tL3hMLv wvlfkn7lygbla Rtlxe7uxkc50pZ86R57wR JjqFHEsOCX7LTTcVIBtcG uuqo3xkW3gVi4+KZvtw0q qq7fynQe8PwDa WIZcvgKpsIwsNUA0d8CbQ v40R0TzgGfrs0EpRsz4yp 18kYLvi9A8aFO3UGfqPGG ggQ7qKGpgAfS9 RVBoSgRamS01fLZoPIvyL r0drIczpZjxXZ1vRUZxcf uvSHZetW2eBGExtRUwgTt xMJ6eFBFpxzur a212GsQfKYG5XTQtyCOtA 0UykA0aEhGeUZPmAZZxQ0 BfyJCcCNguC643YAmrJfI 8VEEdbyTcE9Nc RKZizRctYlF7q4H0Dz4Pv 0ZgbohrXWR0AYoyREWeEi F5AzIlUeC6I1MrJgl4GCT ffZrnKL6wB4Pt BVSvnrdixbohiMA2WBPbD XSedQ74uDKyXDzyNx0zq3 U6u813RPZhKHGgoD49Hw5 udDogMTBwdCBU uM3umupsr6bttjfvFlXhP XEzGUx8KSd4EDOgzHogNk RvVHZ9YwQ0CAE3kPTudV9 dcLklzegdyC7g Oyc+Q40hnQ5oWUO6QMP4r pwqGUKcgrMfDA22OX95K4 RyPjwvdGFibGU+PGRpdiB njEooNR9eBrTb g3euj4NvTTlaW2RxFESqL GoaLly8RLTaTRD3tNQ9nJ 6jHJFvSUgkm9H8dDS2H3Y gfeKvly9cq3pm AUBbRPguK22duFLvt8P0R VGybLB0UXRrwClmDaWdqO 93Oyc+UGGvxKaau8YxJzz eo4rgc6tjlKb9 GzPgCFSxtgTqiMfdKIE9g 1PmWy02S10aFBloTNYcGX XmCFElHZYjfXrtva5qbX9 wIi8+PGNvbCB3 mZR2tF5iKDOsCxX9LSezP 018ZxErgBYhUppzd6ksf7 cnzWg8DcXwUHCrusJsyWi rKJM0d0PlEs33 M72hMEikFCEaSGOfLBMoS AEloUjuwq3hjZ1sLt1+PC 4ni8pibi79hH62eSG+PHR zMPI5rMzkTPth NOTccF3iJEryNrT8KNXxL fXteC21lDTrUFagKc4klT odtKmuJR3mIODnxjkhr12 8KrMyt2zrKOPd hPSaTGqgGNJ9N17zd1C5I HRzZPUnZGE4vIY8cW5szU lnbjogbGVmdDsgdmVydGl jXDzvGPitG468 IHRvcDsnPlBhdGllbnQgT mMiQUf5S7JrYsu8EOEjlF ifRV6uvDVjQRzfZk3fmJn usXksZA4wNJWr kwgxb364ClWdh4fuGNNll AQxUJfjLTB6T74dd7N9YV SsAHUvOTY4mCU4eO5emUu nbjogbGVmdDsg ddSllHclIRmtETigZ102A HRvcDsnPkJpcnRoIERhdG Y5EN30HC08bYKgf7W0qJM 0H3HiOJVwqdpz uhnwfHL7JUOzENWpeP92X p2fuBsyMc6pBSZtLQM5QE InbSVgK5PnsN0yIpQuYLQ mUJJeZ7WtmVKu RJadR840RZnfGaZ2WKPqs zHxW1YxWDUjgCgjHdP4i7 F4Vp2ZF7U9MN03FM56xTM ft0J3mQN5F2Zx HHGomicozhdrcDI9DFSbR MRucU48Mf5kaRnrCg5pQI CvEYP5NJOhqSNdK3QffR0 yOiAjMDAwMDAw T1IzdSAjAZcuC004VPiyZ bJ5VWIvbdJqI8PoWVHgnL yxMwR5x3T4Lo4ULHu4XZ3 9MK52nNJda1P0 eDM3Y0FwKOZtmvjnevjem ZO8KJCxOYVsyQ41Xq5zgT owKy5eLXZhCYA1APGqmAC kS2VpdC6kNmBd LMAwNRXtK7XnzFYxEHxpX 499SRskUxW7EKIjnrCkF4 NfGNAjyDkzYxD6y9C1Ao5 GTHUfUR84OYK2 cWK8YR21KI24W8FsWtmar GFibGU+PHRhYmxlIHdpZH RoPScxMDAlJyBzdHlsZT0 kRa2wJLUfXGMw cUofsKVeKlQye7llRYFqC VhcZM3ewWamC8BmaYJ6ZT Atv4t5Vt83D81gL5ChiTO +NYVadEM5hWH9 xW6sKvYbSpB5UFgvD588Y fFjdELaIiccc7stv2awjP o2ZiE1CDHixoSroKmvPWA 6z8JcZb47K68s IHdpZHRoPSIxNSUiIHZhb Blzsj2znD1pNw2+PGNvbC L3fPU9wL7oIeIrZxV8ODx uZ530PmNumDDk Mhmmy2nxk7ugxIm3IpOuF QBibwXpeZzzGNM8r2KrAs 21Q2EhsSnzn3BmLke9ko0 4hJYoy8K5xWM4 P5IiRUSthvwdnJYbgTebD P8sKPFztdjtDAFwcQ5pBT HrA0k9OvXjTlF4RShvK5C adsA9SPOrdJYz WAplGUX1E64fp1Z5FAUcK JTtYQY0jND2uZ3kaRighu ogbGVmdDsgdmVydGljYWw qDTpfE280FUUh xHnaQVPyuF4xQBMxbVAly FheNZ7cSRVkeeqeChNXG4 wtMIxNVFaPZA1aAxlriYZ +USAqSRQ4mQlj JVpaCOLeyM6pYQFvM6a9L hLqGbY8OGcuO0SqTONtwh pzTe83zK4kQxBeYyD1VHg kU7TqwiJ3ACNw oKPoSTqzWWM9T49pv3O3H UNqVDBsDCT0uDT5jS9tdP lnbjogbGVmdDsgdmVydGl sWBcqXZgxO641 ETFilXnlPwT1EdLzCsX6E ai6Z9ScNbk4OUFkoAtaNB 1pjDXsXUknAe3trRlamXp fUF0uPBDuerjh TDOgwQ6jYRCqvMZesUqgR U3wVMLswkzwu153QuHyUE Z4CTBhzNZhJ7DgdF6hEzO lYCFcJQXfY9Nk kHObBHyoI720GIftKmR5U RJinmKpJ1TdNKOmkPexXb V5s8B9Rj70BTGITFJzffa vdGQ+PHRkIHN0 xNmbFSnbQHIobS9zIACpY 3t4LcZqFrD3FQscG6YaQN HhtgtjBr58kC4jAwOlHpV 8TFgfO5QwerG1 HFJpdFSaYJsyXOS1S15jg 4U3NKIiRQWnICT3qHZ8aE 1hbGlnbjogbGVmdDsgdmV ydGljYWwtYWxp L404VHZlgUteSk9tjKV9Q 9MyVwc7ESEhlFizVW5jzG ZxDUxtSs9opZymnTsxFW5 wNTBpbjtwYWRk wM7xZZHihXJixIwtEI2hO KXmhgwyo941OeBhZML4QW QtqQNbY8YcvZ8iWeTzCHK nSITjW7AnfPMk TNnnO722KNtgRkY9NIAyb pHvL2LoMWZvnEkmTaW9a4 Q2Ee6OuLGrFAKqVQ12CC1 4AD70A5ZaMzov dGFibGU+PHRhYmxlIHdpZ HRoPScxMDAlJyBzdHlsZT 2kEa8vXKMxNSDynQpwaFJ tVdAky0iaLKOz FXcpJM8wrBroA9DdcRF6S GTtl1n8Bt72D03jD3IvtB A+ZIHiiKQ1sKN4tA9sGsU bDyY5QUobO813 TyJvkDTdJpjfq1fej1utv Ys8EtHhYPXevcJlmXtaDS W5a9JgYj40R59mKYmjKHN oPSIyMCUiIHZh oMstak6zfZ9wUg7+PGNvb YL5hTJ6bW3dLkDeRqC3GG pjG056HlCwcREiFeshD50 gK7VdzLH+PHRy Ewu3MDWywWxlDB9hyEGvS IfnCz7hVEQ5GxLbHeXrIM mzO1YlLVIjhkdgvulfcZX 4ELLcWCFfaY79 Rb3uzEzkZm5pOVNwOQE6D YNkoXMjM3KxjK3cVxAsKS OoLYBnO6OudKAoWKisT01 6NKymSnW2MWQu qdMrX6DaYZUozGgiCaK5u 0O4Qr6PiQseoFWvSR7sFz PjZMv9L8SfBne1VYSahBb sTJ2qdDGoKHuk Km5qsRuyaQtzOS0lPWSbx yhal699IrOuh1pnGCVzmQ BgDQvgNYL4A12qa5I3LGR lEANcHNU6pRA0 tZ8edNsbxwnmzFLwaJazt tNenAypQWwoZYcfS944ZR RtvLymCuUHMxu9A4VxVdd 5CMHqcZroFI6e zRSqXDnoQf5vpQwfhVgrS G8dLSWjgcnae023FbMjf5 ibJQExdVDrXXwaBMQ6Y09 uq3S8YDEnZNZi JFS7tFS7bZ5adGuxubimm GVmdDsgdmVydGljYWwtYW ppU576EGEfbSpqUb9IIov 9C5PgWvy0GXHj nXusQU5kgUIbNRxtCj5iy NdcuGffKA5nVLSqrggjh6 17JsJbg7oyVLRxvRQyTIe dQOM7Y73gi9S6 UWPhQNLuBMI4bZA5cL8rz GlnbjogbGVmdDsgdmVydG zfVDzfBJepN533JWIeiGn nPlBheWVyOjwv dGQ+BF21rg82B9YaZembT cb2RECyCPA9qVK6iO0rUC XfLUvbj1U2cHJ8R7LppbR yyr4ey7zlVKGc ZTog (more content not included)... 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 DEGENERATIVE DISC DISEASE AT L2-3 AND L5-S1. CLINICAL HISTORY: M48.062 COMPARISON: NONE FINDINGS: 6 views of the lumbosacral spine demonstrate no evidence of acute fracture or subluxation. There is a mild to levoscoliosis of the upper lumbar spine. There is grade 1 anterolisthesis of L4 on L5, measuring 8 mm. There is marked degenerative disc disease at L2-L3. There is minimal retrolisthesis of L2 on L3. There is a degenerative change of the multiple facet joints. There is no spondylolysis seen. There is vascular calcification seen. There is mild to moderate degenerative disc disease at L5-S1. FINAL REPORT Dictated: 12/26/2021 2:57 pm Kashmir Bartholomew M.D. Signed (Electronic Signature): 12/26/2021 2:57 pm Signed by: Kashmir Bartholomew M.D. Transcribed by: ESTEBAN Technologist: DEYANIRA [facility] Consent for Treatmenton 12-16 Consent for Treatment [id number]#1 .00CD:127 [facility] Consent for Treatment [id number]#1. 00CD:127 [facility] Legal Correspondence Officeo n 12-25-2021 Legal Correspondence Office [id number]# 1.00CD:127 [facility] Office/Clinic Note-Physician on 12-25-2021 Office/Clinic Note-Physician [id number]# 1.00CD:127 Normal [facility] Orders Officeon 12-25-2021 Orders Office [id number]# 1.00CD:127 [facility] Patient Correspondenceon Patient Correspondence [id number]# 1.00CD:127 Normal [facility] Patient Correspondence [id number]# 1.00CD:127 Normal [facility] Patient Correspondence [id number]# 1.00CD:127 [facility] Patient Correspondence [id number]# 1.00CD:127 [facility] Patient History Officeon Patient History Office [id number]# 1.00CD:127 [facility] Physician Orderon 12-25-2021 Physician Order [id number] #1.00CD:127 [facility] Office Visit (Cardiology)on 12-19-2021 Follow-up visit Diagnoses/Problems Assessed Benign essential hypertension (401.1) (I10) Carotid atherosclerosis (433.10) (I65.29) Near syncope (780.2) (R55) PSVT (paroxysmal supraventricular tachycardia) (427.0) (I47.1) Former smoker (V15.82) (Z87.891) Quit smoking 20 years ago Dizziness (780.4) (R42) Benign hypertension (401.1) (I10) Carotid stenosis (433.10) (I65.29) Orders Benign hypertension, Carotid stenosis, Dizziness, Near syncope, PSVT (paroxysmal supraventricular tachycardia) Changed: From amLODIPine Besylate 5 MG Oral Tablet TAKE 1 TABLET BY MOUTH ONCE DAILY To amLODIPine Besylate 10 MG Oral Tablet (Norvasc) TAKE 1 TABLET DAILY DIRECTED History of Present Illness 86-year-old male with history of hypertension, atherosclerosis with recent episode of syncope being referred 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 At the last clinic visit pt was started on low dose BB. Since then he reports he has been feeling well overall however still is having episodes intermittently. He states that after initiation of beta-blockers his episodes are occurring less frequently and are shorter but he still having them roughly every 5 to 6 days. Episodes still are associated with significant near syncope and patient states after the episode generally he feels back to normal. He denies any dom chest pain, shortness of breath, palpitations, abdominal pain, vomiting, changes in visions, mentation. Patient states he has been taking his medications as prescribed and is currently taking half a tablet of metoprolol that is 12.5 mg twice daily. He has also been recording his blood pressure every day and systolic blood pressures at home have been in the 140-150s. A 12 point ROS was done, and negative unless otherwise stated in the HPI. Dizziness HPI: Patient states that he had an episode about 3 weeks ago where he had been in his usual state of health. While he was driving he felt very dizzy had some tunnel vision and had pulled over and just felt extremely weak. He denies any dom loss of consciousness. Since then he states he was having episodes of dizziness mostly with activity never with loss of consciousness. His initial episode while driving the car lasted for about 10 to 15 minutes. Subsequent episodes were about 5 to 10 minutes in duration. He denies any dom syncope, chest pain, shortness of breath, palpitations with any of these episodes. He does note 1 episode woke him up at 4 in the morning where he just felt something was wrong and then it completely resolved in 5 minutes. Patient's primary care did his initial evaluation appropriately with a 7-day pvc monitor and an echocardiogram. Patient also underwent a carotid ultrasound. Patient today in the office states that over the last 5 days he has had no episodes he had noticed an decreasing frequency in his symptoms since his original episode. 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 Patient states he quit tobacco use about 37 years ago. He also quit alcohol use 43 years ago. No drug use. 2 cups of coffee a day. No significant family history of heart disease. Of note patient was previously seen by a neurologist who started the patient on Plavix due to evidence of some mild carotid disease on vascular ultrasound however subsequently he was seen by a vascular medicine specialist and Plavix were discontinued however statin has been kept. Active Problems Problems Benign essential hypertension (401.1) (I10) Benign hypertension (401.1) (I10) Body mass index (BMI) of 21.0 to 21.9 in adult (V85.1) (Z68.21) Carotid atherosclerosis (433.10) (I65.29) Carotid stenosis (433.10) (I65.29) Dizziness (780.4) (R42) Former smoker (V15.82) (Z87.891) Quit smoking 20 years ago Near syncope (780.2) (R55) PSVT (paroxysmal supraventricular tachycardia) (427.0) (I47.1) PVD (peripheral vascular disease) (443.9) (I73.9) Syncope, near (780.2) (R55) Surgical History Problems History of Complete colonoscopy History of Facial surgery Current Meds Medication NameInstruction amLODIPine Besylate 5 MG Oral TabletTAKE 1 TABLET BY MOUTH ONCE DAILY Aspirin EC 81 MG Oral Tablet Delayed ReleaseTAKE 1 TABLET DAILY. Atorvastatin Calcium 40 MG Oral TabletTAKE 1 TABLET AT BEDTIME. Cefdinir 300 MG Oral CapsuleTAKE 2 CAPSULES BY MOUTH once DAILY CeleBREX 200 MG Oral CapsuleTAKE 1 CAPSULE Daily Cetirizine HCl - 10 MG Oral TabletTAKE 1 TABLET DAILY. Clotrimazole-Betameth asone 1-0.05 % External LotionAPPLY TO THE AFFECTED AREA(S) TWICE DAILY Cyanocobalamin 100 MCG/ML SOLNonce monthly Cyanocobalamin 1000 MCG/ML Injection SolutionINJECT 1 (ONE) ml INTRAMUSCULARLY once a month Diclofenac Sodium 1 % External GelAPPLY TO THE AFFECTED AREA(S) DAILY as directed EpiPen 0.3 MG/0.3ML DEVIUSE DIRECTED. Lisinopril 40 (more content not included)... Normal [employer] Tobacco Screening.on 022 Fall risk assessment a) No falls within the last year [facility] [facility] DO Work Phone: Tobacco use status [facility] b) No M [facility] [facility] DO Work Phone: Falls Risk Screeningon 11-07 Fall risk assessment a) No falls within the last year [facility] [place] [facility] DO Work Phone: Tobacco use status [facility] b) No M [facility] DO Work Phone: Office Visit (Cardiology)on 10-31-2021 Follow-up visit Diagnoses/Problems Assessed Dizziness (780.4) (R42) Near syncope (780.2) (R55) Benign hypertension (401.1) (I10) Carotid atherosclerosis (433.10) (I65.29) Chief Complaint MACARIO ASH is being seen for a consultation for dizziness and Near syncope. 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 Patient states that he had an episode about 3 weeks ago where he had been in his usual state of health. While he was driving he felt very dizzy had some tunnel vision and had pulled over and just felt extremely weak. He denies any dom loss of consciousness. Since then he states he was having episodes of dizziness mostly with activity never with loss of consciousness. His initial episode while driving the car lasted for about 10 to 15 minutes. Subsequent episodes were about 5 to 10 minutes in duration. He denies any dom syncope, chest pain, shortness of breath, palpitations with any of these episodes. He does note 1 episode woke him up at 4 in the morning where he just felt something was wrong and then it completely resolved in 5 minutes. Patient's primary care did his initial evaluation appropriately with a 7-day pvc monitor and an echocardiogram. Patient also underwent a carotid ultrasound. Patient today in the office states that over the last 5 days he has had no episodes he had noticed an decreasing frequency in his symptoms since his original episode. 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 Patient states he quit tobacco use about 37 years ago. He also quit alcohol use 43 years ago. No drug use. 2 cups of coffee a day. No significant family history of heart disease. Of note patient was previously seen by a neurologist who started the patient on Plavix due to evidence of some mild carotid disease on vascular ultrasound however subsequently he was seen by a vascular medicine specialist and Plavix were discontinued however statin has been kept. Current Meds Medication NameInstruction Aspirin 81 MG Oral Tablet Delayed Release Celecoxib 200 MG Oral Capsule Cetirizine HCl - 10 MG Oral Tablet EpiPen 0.3 MG/0.3ML REBECCA Omeprazole Magnesium 20 MG Oral Tablet Delayed Release Allergies Medication ciprofloxacin Recorded By: Shira Marquez; 10/31/2021 2:44:43 PM Penicillins Recorded By: hSira Marquez; 10/31/2021 2:44:43 PM Social History Problems Caffeine use (V49.89) (Z78.9) Former smoker (V15.82) (Z87.891) Review of Systems Constitutional: not feeling tired. Eyes: no eyesight problems and no blurred vision. ENT: no hearing loss, no nosebleeds and no tinnitus. Cardiovascular: no intermittent leg claudication, no chest pain, no tightness or heavy pressure, no shortness of breath, no palpitations, no lower extremity edema, the heart rate was not slow, the heart rate was not fast and as noted in HPI. Respiratory: no chronic cough, no shortness of breath, not coughing up sputum and no shortness of breath during exertion. Gastrointestinal: no change in bowel habits and no blood in stools. Genitourinary: no urinary frequency and no hematuria. Skin: no skin rashes. Neurological: dizziness, but no seizures, no frequent falls, no headaches, no tingling, no numbness, no fainting and no limb weakness. Psychiatric: no depression and not suicidal. All other systems have been reviewed and are negative for complaint. Vitals Vital Signs Recorded: 31Oct2021 02:18PM Heart Rate62 Ezntgvps317 Nimwnvqfs82 Height5 ft 11 in Fmckjp662 lb BMI Nijsiigtsf64.82 kg/m2 BSA Calculated2.2 Tobacco Useb) No Fall Screeninga) No falls within the last year O2 Lghukdyjet62 Physical Exam Constitutional: alert and in no acute distress. Eyes: no erythema, swelling or discharge from the eye . Neck: neck is supple, symmetric, trachea midline, no masses and no thyromegaly . Pulmonary: no increased work of breathing or signs of respiratory distress and lungs clear to auscultation. Cardiovascular: carotid pulses 2+ bilaterally with no bruit , JVP was normal, no thrills , regular rhythm, normal S1 and S2, no murmurs , pedal pulses 2+ bilaterally and no edema . Abdomen: abdomen non-tender, no masses and no hepatomegaly . Skin: skin warm and dry, normal skin turgor . Neurologic: non-focal neurologic examination. Psychiatric judgment and insight is normal and oriented to person, place and time . Results/Data Carotid ultrasound bilateral (09/10/2021) Moderate atherosclerotic plaque within the bulb and proximal ICA causing mild narrowing of the right carotid artery. No flow within the vertebral artery of the right vertebral artery. Mild-moderate atherosclerotic plaque within the bulb caus (more content not included)... Normal [employer] Tobacco Screening.on Fall risk assessment a) No falls within the last year -Cardiolog y-[place] [address] Work Phone: Tobacco use status [facility] b) No M P-Cardiolog y-[place] [address] Work Phone: Tobacco Screening.on Fall risk assessment a) No falls within the last year -Cardiolog -[facility] [address] DO Work Phone: Tobacco use status [facility] b) No M -Cardiolog -[facility] [address] DO Work Phone: Tobacco Screening.on Fall risk assessment b) One or more fall s in the last year [facility] [address] DO Work Phone: Tobacco use status [facility] b) No M [facility] [address] DO Work Phone: Progress Note-Physicianon Progress Note-Physician Patient: MACARIO ASH Age: 86 years Sex: Male : 1935 Associated Diagnoses: None Author: Lenard Jurado DO, Damien Costa Preoperative Information Anesthesia history: Patient history: denies difficulty with anesthesia. Family history: Denies any history of anesthesia complications.. Re-evaluation prior to induction: Initial evaluation reviewed: No significant change. Review of Systems Respiratory: NO RECENT CHANGES IN RESPIRATORY STATUS. Cardiovascular: STABLE, NO CHANGES IN CARDIAC STATUS. Neurologic: Per pain clinic assessment. Health Status Allergies: Allergic Reactions (Selected) Severe Bee Stings- Hives. Penicillin- Hives. Severity Not Documented Alcohol- Intolerance. Current medications: (Selected) Prescriptions Prescribed Norvasc 5 mg Tab: 5 mg = 1 tab(s), Oral, Daily, # 90 tab(s), Refills(s) 3, Pharmacy: [facility], 177, cm, 09/11/20 10:31:00 EST, Height/Length Dosing, 98.6, kg, 09/11/20 10:31:00 EST, Weight Dosing cyanocobalamin 1000 mcg/mL Inj: 1,000 microgram = 1 mL, IntraMuscular, qMonth, # 10 mL, Refills(s) 3, Pharmacy: [email or web address], 177, cm, 05/31/20 8:16:00 EDT, Height/Length Dosing, 98.6, kg, 05/31/20 8:16:00 EDT, Weight Dosing diclofenac Top 1% gel: 1 sruthi, Topical, BID for pain, 60 gram, Refill(s) 1, apply to foot & knee, [facility], 177, cm, 11/01/19 15:36:00 EST, Height/Length Measured, 99.5, kg, 11/01/19 15:36:00 EST, Weight Measured lisinopril 40 mg Tab: 40 mg, Oral, Daily, # 30 tab(s), Refills(s) 0, Pharmacy: [facility], 177, cm, 10/03/20 14:10:00 EST, Height/Length Dosing, 98.6, kg, 09/11/20 10:31:00 EST, Weight Dosing triamcinolone Top 0.1% Crm: 1 sruthi, Topical, BID, 454 gram, Refill(s) 1, to affected area, [facility] [place],, 177, cm, 12/04/19 10:28:00 EST, Height/Length Measured, 98.6, kg, 12/04/19 10:28:00 EST, Weight Measured Documented Medications Documented Celebrex: 200 mg, Oral, Daily, Refills(s) 0 Epipen: use as directed, Refills(s) 0 Florajen oral capsule: 1 cap(s), Oral, Daily Prilosec: 20 mg, Oral, Daily, Refills(s) 0 Zyrtec: 10 mg, Oral, Daily, Refills(s) 0 acetaminophen: 500 mg, Oral, TID, PRN as needed for pain, Refills(s) 0 dextromethorphan 20 mg/15 mL oral syrup: 20 mg = 15 mL, Oral, prn cough Problem list: All Problems Chronic low back pain / SNOMED CT 839728782 / Confirmed Osteoarthrosis, generalized, multiple joints / SNOMED CT 683973214 / Confirmed Diverticulosis / SNOMED CT 553037344 / Confirmed Acid reflux / SNOMED CT 208040982 / Confirmed Hiatal hernia with GERD / SNOMED CT 7190883437 / Confirmed Hearing difficulty / SNOMED CT 827099020 / Confirmed Heart murmur / SNOMED CT 696659758 / Confirmed Hypertension / SNOMED CT 4397021387 / Confirmed Dermatitis / SNOMED CT 8054525723 / Confirmed Canceled: Hiatal hernia / SNOMED CT 266143055 Canceled: Osteoarthritis / SNOMED CT 5320200066 Histories Past Medical History: No active or resolved past medical history items have been selected or recorded., SMOKES TOBACCO Family History: Hypertension Mother Alcoholism Grandparent Procedure history: Epidural injection of lumbar spine using fluoroscopic guidance ([id number]) on 09/11/2020 at 85 Years. Comments: 10/03/2020 14:10 Kim Bhatia RN L4-5 MART- 80% relief Epidural injection of lumbar spine using fluoroscopic guidance ([id number]) on 11/01/2019 at 84 Years. Comments: 11/22/2019 10:10 Dalila Griffin RN L4-5 MART- 97% relief for 10 days, now 75% relief right large toenail removal on 10/18/2011 at 76 Years. 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 heel spur on 10/18/1996 at 61 Years. Vasectomy ([id number]) on 10/18/1976 at 41 Years. oral surgeries on 10/18/1969 at 34 Years. Tonsillectomy and adenoidectomy ([id number]) on 10/18/1941 at 6 Years. Colonoscopy ([id number]). 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 - 06/08/2019 14:44 - Dalila Henry RN Substance Abuse 06/08/2019 Risk Assessment: Denies Substance Abuse Tobacco 06/08/2019 Risk Assessment: Denies Tobacco Use 02/05/2020 Tobacco Use: Former smoker, quit more Smokeless tobacco use: Never Comment: Quit smoking in 1983 - 11/01/2019 15:37 - Madison Gillette RN . Physical Examination Pain assessment: PER PAIN CLINIC ASSESSMENT. General: Alert and oriented. Airway: Neck: Supple. HENT: Normocephalic. Respiratory: ADEQUATE AIR EXCHANGE. Cardiovascular: Adequate circulation and perfusion.. Gastrointestinal: Benign, nontender.. Integumentary: Warm, [place]. Neurologic: PER PAIN CLINIC ASSESSMENT. Plan [place] [employer] (ASA) physical status classification: Class III. Anesthetic Preoperative Plan Anesthesia: Monitored anesthesia care. Anestheti (more content not included)... Normal [facility] Comment on above: Result Comment: Elec tronically Signed By: Damien Weinberg Jr, DO\.br\Date and Time Signed: 08/25/21 08:05 EST Progress Note-Physician Patient: MACARIO ASH Age: 86 years Sex: Male : 1935 Associated Diagnoses: None Author: Damien Weinberg Jr, DO Postoperative Information Post Operative Note: Post Anesthesia Care Unit. Anesthetic utilized: Monitored anesthesia care. Health Status Allergies: Allergic Reactions (Selected) Severe Bee Stings- Hives. Penicillin- Hives. Severity Not Documented Alcohol- Intolerance. Problem list: All Problems Chronic low back pain / SNOMED CT 000105806 / Confirmed Osteoarthrosis, generalized, multiple joints / SNOMED CT 884247557 / Confirmed Diverticulosis / SNOMED CT 906674710 / Confirmed Acid reflux / SNOMED CT 845267260 / Confirmed Hiatal hernia with GERD / SNOMED CT 2751525200 / Confirmed Hearing difficulty / SNOMED CT 173381332 / Confirmed Heart murmur / SNOMED CT 238088716 / Confirmed Hypertension / SNOMED CT 8733615157 / Confirmed Dermatitis / SNOMED CT 2473659218 / Confirmed Canceled: Hiatal hernia / SNOMED CT 772181840 Canceled: Osteoarthritis / SNOMED CT 9880705551 Physical Examination Vital Signs 08/20/2021 11:22 EDT Heart Rate Monitored 58 bpm LOW Respiratory Rate 16 br/min Systolic Blood Pressure 165 mmHg HI Diastolic Blood Pressure 97 mmHg HI Mean Arterial Pressure, Monitered 120 mmHg SpO2 97 % 08/20/2021 11:16 EDT Heart Rate Monitored 59 bpm LOW Respiratory Rate 20 br/min Systolic Blood Pressure 159 mmHg HI Diastolic Blood Pressure 73 mmHg Mean Arterial Pressure, Monitered 102 mmHg SpO2 98 % 08/20/2021 11:10 EDT Respiratory Rate 16 br/min br/min SpO2 100 % % 08/20/2021 11:09 EDT Systolic Blood Pressure 168 mmHg mmHg Diastolic Blood Pressure 128 mmHg mmHg 08/20/2021 11:05 EDT Heart Rate Monitored 73 bpm bpm Respiratory Rate 18 br/min br/min SpO2 100 % % 08/20/2021 11:03 EDT Systolic Blood Pressure 176 mmHg mmHg Diastolic Blood Pressure 93 mmHg mmHg 08/20/2021 10:22 EDT Temperature Oral 36.7 DegC Heart Rate Monitored 64 bpm Respiratory Rate 16 br/min Systolic Blood Pressure 120 mmHg Diastolic Blood Pressure 82 mmHg Mean Arterial Pressure, Monitered 95 mmHg SpO2 97 % Vital Signs (last 24 hrs) Last Charted Temp Oral 36.7 DegC (AUG 20:22) SBP H 165mmHg (AUG 20:) DBP H 97mmHg (AUG 20 11:22) SpO2 97 % (AUG 20 11:22) Height 177 cm (AUG 20 10:22) Documented vital signs Pain assessment: Pain Assessment 08/20/2021 11:22 EDT Preliminary Pain Scale 0 08/20/2021 11:22 EDT Patient Preferred Pain Tool Numeric rating 08/20/2021 11:16 EDT Preliminary Pain Scale 0 08/20/2021 10:22 EDT Preliminary Pain Scale 4 . General: Alert and oriented, No acute distress. Respiratory: Lungs are clear to auscultation. Cardiovascular: Normal rate, Regular rhythm. Neurologic: Normal sensory. Review / Management Condition: Stable. Assessment Anesthetic outcome No anesthetic complications noted. Adequate pain relief. TOLERATING PO INTAKE. voiding w/o diff.. No Complaint of nausea and vomiting. Plan Transfer/ Discharge: Condition stable. Normal [facility] Comment on above: Result Comment: Elec tronically Signed By: Lenard Jurado DO, Damien Ng.pao\Date and Time Signed: 08/25/21 08:04 EST Coding Summary.on 08-22-2021 Coding Summary. [id number] G h0bWw+PGhlYWQ+MT5EZGS iC18ppZQrfU1CG8rIGT9O NJGUUAIXVY4BLQ2boIU6Y SwiQ7UokhPe CjpyaUQvCZ37BOd2YWD1f CkiTIerzH4bzRNzR8b0Cr WkZA14zK20OLxlMRAiLiM 3LjZpbjsgbWFy Y9toNmOziSXhVki+PHRhY mxlIHdpZHRoPScxMDAlJy EewBngFF5bHw4sEFWgEXZ vbGxhcHNlOiBj d7ahQQDxXUafZZ7nkVpjH 5NjaCO3TMWfh1y2Sd30hK I+KWNgMLJ3qVmdIYkwh33 8VgFaf6eiOYD6 xGNcPUmxGFQ0N33nk4Z8C HIwQPVpDME7cHQ1gH8ibZ mfygzfM0CeqDXbJfE1INA 6yTRjiT8uqObp nmytaX8mOci+V68JIH7CI EAWIJ6AJdm7P2TsRhydeW I+GZ21WMGbEO01pKLaqYQ pf9xchQr8OsWd WSIuSHT7yLqbRLght5QkQ KEgD13xdIWuj1K4WBOyvU lzkBPeXpYlxEK3bD5qIEm hhdrsn0vwizdb Ulvvw6wdeh57xR05B21rQ RteXNHhOBB1BCIfNPHtsS nsmc0daJ1kRu7+UIbjr8i za8szwFb3TlMr JNWwokKunGhcRPR7k0PcW b03U4TdrCici4NmBrf8dj 62fMKij3P9nRP8JMheVUP ccQ5nNLdiPkT5 WSUpQySfzT16hBVrHTuoO q6ofMcrmSqaNA3pZVYvip teJTUvfN4tXMEnuPPiiDq oJK4gLHVqeztm d123DzDmOBD4OYVsdAKwV 0FjuT0iMyIvXFEqIWZrA2 QwwQLkTXmpI286OHlnEnH 9GWNeywZqW8Cw HLVofPjcXsF8l0V7Lv4Cm 0JcehtaXXK0JPudAZLjNi A2FoNwErD0R3IkAyp5ECA hyXcjJO1hS5Eo NIAfzxgwwdonnNH8ZRNuI QSdfJ10dEPxMOlmSi1tz6 R1u291NIPmZXCazW30La4 udDogMTBwdCBU rO6frdycc9bigmmxLpVmN SGbUWu8HXf9FDAmeBcvNs RmTPX8OtD4OHX9mDRaeD0 tqBfnzjlmzE4p Oyc+E48tqF8iCFL2WVI7d eoaVTKcpcOjQS42CM74G0 RyPjwvdGFibGU+PGRpdiB jkAusPX6xFcGt n4nvo8DiURfwH9ZuJNXfJ UxyDyv7XYEqXOV8eDA4oZ 8hSMGiSRbde4S7cEE7T3T oyzRcil6ab0cw VHJfIQroD77nhOIsc2R6Z UQgiMP9AFOxlGlgUuUksF 93Oyc+CUJghVvfq1OpDcs pr7mgx2ikkTj3 IiXoITLmlgFfrZyzKUC7o 3EuJk91I16eHXsdULQnKG GfQYKcCLFtpQepqx8vuL6 wIi8+PGNvbCB3 lJT4zD1rVHNlIvT2KMtwQ 911OmEcnQIqDuhdh3cke5 wixOp4AdPnCOVswkTnoFa fSPA4d9TjXp82 D19nHHbyQQTrENUmEFKeX KIojGipwt2foE6cZs9+PC 9ig8utny65gI00cUD+PHR pLTD4zSioTNxx HIJwtX3sWIudGzG7OVGlD lUzhP08sIPtZMenEo4ebJ gfyUxfAI6gXPGqkfudg92 5MsUbp5mjKTTq hCUgYJifOWM1S77bu1H1F KFwCTVlYUJ0lVW8fG5siJ lnbjogbGVmdDsgdmVydGl xFOlkUNqdH079 IHRvcDsnPlBhdGllbnQgT wRvWUk2I6LgOsz0FEEnfP hbJC1ziQSoUYtlLx2kdLf xtMvnTC1eCPUy jmnld736RmTod3wyMTOrk CSnEAlrUEL0X08ol6C1QQ WbVGUaVPJ8iNI5rE5jeLt nbjogbGVmdDsg ngUxuRgeLKnjIDhlA950J HRvcDsnPkJpcnRoIERhdG M5QT70KL24xGMid8F9rMR 3I5CvCXIgqoav rjblpUA8OCUvTRVurZ38X i4mjGonZt2aCINlQIH9FK AnqWJjX0YiuC2lMoTtAOA sWLAyJ1ElxPHg VVibX574ZDxpPcO3GZWpr jSdX8NjJWSdgRoeHnK0o2 G3To3YJ5E4PX66LS92tZF qb5P7nHJ7M3En SEAvrkeuswafbUT9KSCmO KHmoI78Ex5xuQeeCt8iEV EfQEZ1BQSgoQSaD2UioD6 yOiAjMDAwMDAw M8FapUJtEGxtF130VDlbN uK7NNMlagPkA7EmEUZohT voOnD0i8U6Za3RQDx5AS7 2CU73pDFdl5F5 eYD0F1FrORNjiuklmnqhh MU5EGOrAAAjrU94Vg3ocR njRq5uJNJmJBL6AUKdqUJ iM4VttH0kCkLj EUFjEDYoH6OoeYUbFUqkA 765GHjqOvP1BGQdjbUrH3 MsYYJnjQudLcG2c9M9Wx1 KTIFuYH30XUR3 oAQ3BX95GH17F6ObDhyxf GFibGU+PHRhYmxlIHdpZH RoPScxMDAlJyBzdHlsZT0 bAz0xKDZiJFZl lAmdpYJfRbXfs7azWQUtF TquAW6gwJuyP1OrkUE6EF Kzg8h2Jq99P55tK3DbvPQ +UVEcwFB5gAJ3 cW5jCmEcDlK4XMcoO839Q yClmZRiXepvo3ryu0wkwR e0RdI4SLUahvPgnKngNJE 5p7CfLx58T67f IHdpZHRoPSIxNSUiIHZhb Zfaxk0kkA8cZl7+PGNvbC Y2jPE9gV3bZgOvJgT6QEj rR884VxNuvZIh Qgyvp6gjs7kndZj6UuWvR BAblmMgsThtRSZ2w7NfXy 47M8VhjUype1UbJro9aj3 6yNNro2N1eAA2 F8TlQTGeiukpiKMinHxzH A3tLFOmphdoUNLhxZ5pLM RzB8w9DwLqPkJ3GJemX9H qpjD5SADxuCMb UMsxSBJ6C53yl2T1CIRqG TMwALN3jAJ5nE9ymSzfug ogbGVmdDsgdmVydGljYWw dOJukK061TBLw oGjxTJEwfB3dAGAjaVQpx QkzUT4aULYjojqqNdAHZ6 neOBcEENmUOH9rIzdtgSQ +NCEbQKY9pTdt VIdcXJAteN3qWHJnH6s4Q tPkYyZ5OObpT8CaMRIclz qfRm64cR0dLtArScJ3XPl vO2AnvxW9XHHo qROyRFunFRQ7X02yu2G2X HVrBCZcFCK7zBE5cD6utP lnbjogbGVmdDsgdmVydGl dUEheFBflY090 QJMeeUapXqL7NaWjIkB3N sb2O0SvQvd3PHQmmMyzDO 3mmHVrFVjwLa7gbIrnqLk pCV1fYGSeauuq WGAxpD4qLZPblOEnwKoiX F9yIQJpyqxuc294ArQmUM E1QQCbuGZcU4ApoA5vUcZ iWZJnFNNgY9Ss fXBjPNoqX186RYuhRqV4B MOgplWmV6JcTQZpeZnlUc H8i0G7Mj04DCOVKWGnlnv vdGQ+PHRkIHN0 kQlyRKihQAWayK9nRGTjM 7d1SuRfXqM8TVmiV5KuZZ AcejqaTs43gO1iYkNkOlL 1CZnvT1IclwD7 ZWZiqGKqKUvzPJY3Z79tb 5V5CBGxPSSmQIW0dWD5sX 1hbGlnbjogbGVmdDsgdmV ydGljYWwtYWxp I679IMKqfRvqRh5tpBH6G 3LwXbi8ZBByyTlkXU4ikF FeQBqmVu3wvFhedCnyBC6 wNTBpbjtwYWRk dQ8lMNSqpIDksYmoLS0aP YRwgwxeq321CjFjFJM9ON AtqZCwT3WlmL5eTwMiYCK jCXXsI5DqbMNe DIdyG928JVbuJvJ3IHFep yLcL8DxJGGtjYsoAbU4u6 B4Mz9HZWhzSD3cftNkNO6 hhtE4A1AwKoov dHI+LH41EXCqAM71gPJto VMkz1mhgTm8BrQfHUIlYC S3cApsIIafc7CzKFQgH36 fpMJnr3D6TYPc yNvboQWjAtWqsNT1rF5mP Rncwhlal2njmywrMqhex3 yvrj61tB01V28rFNvjFCQ oPSIzMCUiIHZh fOcrga8fiW5xLt6+PGNvb XU0jZH0nF2tOsRtCrN1XI lwO116XfWnbOSxHroos6l xq2dpySy1KiVt AEJcymCyaLeoWIE6u1WnQ a26Y54xDMaeJUNlUYRxGM XgHFIsvRmfjx1wdU1gPp6 +AT6qv1njjc79 jF05kWN+WTRkMXV9vJltK VnsDZZmgC0tDSptTmO3YV RvJnLsuX78bCOqFMsyIa7 ycRssgGvpAD3c ZICghobfi821YjPei1dnL PNncPPeTFyzUJU3O56nj2 N1RMOnJDSaETN1wUX4bD5 hbGlnbjogbGVm dDsgdmVydGljYWwtYWxpZ 879SSIhzEbpXfWwbVJbS0 sdqjSNKR1iQddtlEW+PHR bCWP3eEfiIGif LJRwyV6uSYIyU9l5JyCiM fY0JXrgE4IqyuN9MQLsdL KnOGPceOZBxX7ysfybg2c vcjogIzAwMDAw XZs6SLg4NWUufJjpCyGvP PL0FzB1YZV4uSDgjO8miQ ygntxsbR3bIsw+RklOOjw vdGQ+PHRkIHN0 iEazSFrlCKYheO0lFRIeZ 1w5XlPyVlP2FAepX9Nehg N1ELNslTQeQRUkxJQSaK5 zysvdi3xyrxdx JoZoKJRvNVq4RXs1GFJke ZsoNgDiQZM4PvZ9POL6oT BdwT4ftIuiyggyaO8sPux +TVJOOjwvdGQ+ JSYaNEM1kFqoDUmaLRMus V1uPXXeQ2d8SnNgArX3EY xvP4WsbfV9FNJghWOoMFO kvDOIlM9cwhfd v9tjpvkrSwErXEMzMGl2R Js3DINvoNayXtTpXGR8Ym F1VBP8rKFqqL8goMgzuvi rcB4hMsy+UGF5 GQH1IH92KR11O4TsGlxvb GFibGU+PHRhYmxlIHdpZH RoPScxMDAlJyBzdHlsZT0 jLz0iFXOqUYGz bGxh (more content not included)... Normal [facility] Operative Reporton Operative Report SURGERY DATE: 08/20/2021 PREOPERATIVE DIAGNOSIS: Lumbosacral radiculopathy POSTOPERATIVE DIAGNOSIS: Lumbosacral radiculopathy OPERATION: Interlaminar lumbar epidural steroid injection under fluoroscopic guidance at the L4-5 interspace SOLUTION: 8 cc of 0.5% lidocaine with 40 mg of Kenalog; live contrast was also used ANESTHESIA: Monitored anesthesia care, sedation was needed due to the need for the patient to remain in a painful position during the procedure COMPLICATIONS: None PROCEDURE: After informed consent was obtained the patient was brought to the Operating Room and placed in the prone position. The area in question was prepped and draped in sterile fashion. An AP fluoroscopic view of the lumbar spine was obtained and after a local anesthetic was administered into the skin a 17 gauge Tuohy needle was inserted perpendicular to the skin and advanced toward the L4-5 interspace under intermittent fluoroscopic guidance. The epidural space was identified via loss of resistance to air. Proper needle position was confirmed via AP and lateral fluoroscopy. Contrast was administered under live fluoroscopy and demonstrated appropriate epidural and nerve root uptake and the absence of any intravascular or intrathecal spread. The local anesthetic steroid solution was injected incrementally. The needle was removed. Bleeding was nil. The patient tolerated the procedure well and was transferred to the Recovery Room in good condition. Bayron Rodriguez M.D. lr Dictated: 08/20/2021 [id number] Transcribed: 08/20/2021 [facility] Comment on above: Result Comment: Elec tronically Signed By: Bayron Rodriguez MD\.br\Date and Time Signed: 08/21/21 17:00 EDT Consent for Anesthesiaon Consent for Anesthesia [id number]# 1.00CD:127 [facility] Consent for Procedure/Surger yon 08-20-2021 Consent for Procedure/Surgery [id number]# 1.00CD:127 [facility] Consent for Treatmenton Consent for Treatment [id number]#1 .00CD:127 [facility] Discharge Instructionson Discharge Instructions [id number]# 1.00CD:127 [facility] IntraOperative Documentson 1 10-20-2020 IntraOperative Documents [id number]# 1.00CD:127 [facility] IntraOperative Documents [id number]# 1.00CD:127 [facility] Main OR Intraoperative Recor don 08-20-2021 Main OR Intraoperative Record IntraOp Document Type FTPM Summary Primary Physician: Bayron Rodriguez MD Finalized Date/Time: 08/20/21 11:12:24 Pt. Name: MACARIO ASH/Sex: 1935 Male Med Rec #: [id number] Physician: Bayron Rodriguez MD Financial #: [id number] Pt. Type: P Room/Bed: / Admit/Disch: 08/20/21 09:40:54 - Institution: Case Times FTPM Entry 1 Patient Times In Room 08/20/21 11:01:00 Out Room 08/20/21 11:12:00 Procedure Times Start 08/20/21 11:04:00 Stop 08/20/21 11:09:00 Anesthesia Times Start 08/20/21 11:01:00 Stop 08/20/21 11:12:00 Last Modified By: Anna Garcia RN 08/20/21 11:12:15 Case Attendance FTPM Entry 1 Entry 2 Entry 3 Case Attendee Royce EDWARDS, Nikki Rodriguez MD, Damien Molina Jr, DO Role Performed Anesthesiologist Surgeon - Primary Anesthesiologist of Outbound Sales Executive Record Time In 08/20/21 11:01:00 08/20/21 11:01:00 08/20/21 11:01:00 Time Out 08/20/21 11:12:00 08/20/21 11:12:00 08/20/21 11:12:00 Procedure LUMBAR EPIDURAL STEROID LUMBAR EPIDURAL STEROID LUMBAR EPIDURAL STEROID INJECTION(.) INJECTION(.) INJECTION(.) Comments Last Modified By: Anna Garcia RN 08/20/21 Anna Garcia RN 08/20/21 Anna Garcia RN 08/20/21 11:12:16 11:12:16 11:12:16 Entry 4 Entry 5 Entry 6 Case Attendee Elaine SCOTT, Dalila Garcia RN, Anna East RT(R), Kelley Role Performed Scrub - Primary Carpet Mechanic - Primary Senior Financial Consultant Time In 08/20/21 11:01:00 08/20/21 11:01:00 08/20/21 11:01:00 Time Out 08/20/21 11:12:00 08/20/21 11:12:00 08/20/21 11:12:00 Procedure LUMBAR EPIDURAL STEROID LUMBAR EPIDURAL STEROID LUMBAR EPIDURAL STEROID INJECTION(.) INJECTION(.) INJECTION(.) Comments Last Modified By: Anna Garcia RN 08/20/21 Anna Garcia RN 08/20/21 Anna Garcia RN 08/20/21 11:12:16 11:12:16 11:12:16 Perioperative Protocols FTPM Pre-Care Text: Implements protective measures prior to operative or invasive procedure, confirms identity before the operative or invasive procedure, verifies operative procedure, surgical site, and laterality Entry 1 Procedure(s) LUMBAR EPIDURAL STEROID Patient Identity Birthday, ID Band INJECTION(.) Verified (select at Check, Patient least 2): Participation Consents / H and P Anesthesia Consent, Operative Site Present Verified HandP, Surgery/Procedure Marking Verified Consent Surgical Site Yes Laterality Verified Yes Verified Procedure Verified Yes Correct Patient Yes Position Verified Availability Equipment, Medication, Prep Dry Yes Verified (If X-ray Applicable) PreOp Antibiotic No Time Out Anna Garcia RN, Myers Given Participants RN, Dalila Cain, Jennifer GAUTAM, Royce Verma, Nikki Cain, Kita RT(R), Kelley Time Out Complete 08/20/21 11:02:00 Outcomes Met? Yes Last Modified By: Anna Garcia RN 08/20/21 11:04:57 Post-Care Text: The patient is free from signs and symptoms of injury caused by extraneous objects Allergy Information FTPM Pre-Care Text: Verifies allergies Entry 1 Allergies Reviewed? Yes Allergies Reviewed Self/Patient With Outcomes Met? Yes Last Modified By: Anna Garcia RN 08/20/21 09:57:19 Post-Care Text: The patient received appropriate medication(s) safely administered during the perioperative period Surgical Procedures FTPM Entry 1 Procedure Description Procedure LUMBAR EPIDURAL STEROID Modifiers . INJECTION Surgeon Description LESI Primary Procedure Yes Primary Surgeon Jennifer GAUTAM, Bayron Start 08/20/21 11:04:00 Stop 08/20/21 11:09:00 Anesthesia Type MAC Surgical Service Pain Management Wound Class 1 - Clean Last Modified By: Anna Garcia RN 08/20/21 11:12:17 General Case Data FTPM Pre-Care Text: Classifies surgical wound, implements aseptic technique, initiates traffic control Entry 1 Case Information OR Pain Proc Room Case Level Level 2 Wound Class 1 - Clean Specialty Pain Management ASA Class 3 Preop Diagnosis M54.17 Postop Same As Preop Yes Postop Diagnosis M54.17 Outcomes Met? Yes Last Modified By: Anna Garcia RN 08/20/21 11:05:52 Post-Care Text: The patient is free from signs and symptoms of infection Skin Assessment (Pre Procedure) FTPM Pre-Care Text: Implements protective measures to prevent skin/ tissue injury due to thermal or mechanical sources Evaluates for signs and symptoms of physical injury to skin and tissue Entry 1 Skin Integrity Intact, [place], Warm, and Skin Abnormality No Dry Outcomes Met? Yes Last Modified By: Anna Garcia RN 08/20/21 11:05:57 Post-Care Text: The patient is free from signs and symptoms of injury caused by extraneous objects Patient Positioning FTPM Pre-Care Text: Identifies physical alterations that require additional precautions for procedure-specific positioning, verifies presence of prosthetics or corrective devices, positions the patient, evaluates the patient for signs and symptoms of injury as a result of positioning Entry 1 Procedure LUMBAR EPIDURAL STEROID Body Position Prone INJECTIO (more content not included)... Normal [facility] Main OR Preoperative Recordo n 08-20-2021 Main OR Preoperative Record Holding Area Document Type FTPM Summary Primary Physician: Bayron Rodriguez MD Finalized Date/Time: 08/20/21 10:23:19 Pt. Name: NILSAMACARIO/Sex: 1935 Male Med Rec #: [id number] Physician: Bayron Rodriguez MD Financial #: [id number] Pt. Type: P Room/Bed: / Admit/Disch: 08/20/21 09:40:54 - Institution: Case Times Holding FTPM Pre-Care Text: Verifies consent for planned procedure, identifies individual values and wishes concerning care, includes family members in perioperative teaching Secures patient's records' belongings, and valuables, maintains patient's dignity and privacy, and maintains patient confidentiality Entry 1 In Holding 08/20/21 10:21:00 Outcomes Met? Yes Last Modified By: Kyung Ceja RN 08/20/21 10:21:12 Post-Care Text: The patient participates in decisions affecting his or her perioperative plan of care The patient's right to privacy is maintained Surgery Checklist FTPM Entry 1 Patient Birthday, ID Band Procedure Surgical Consent, With Identification: Check, Patient Verification: Patient Participation NPO after Midnight: Yes Results Reviewed none Comments: Personal Items: Glasses, Jewelry Personal Items watch Comment: Complaints of Pain: Yes Pain Comment: 01/25 low back pain Operative Site Yes Marked By: Arthur Rodriguez Marking: Availability Equipment, X-Ray Verified: Does Patient Smoke No Patient states Yes Comment - Adult Mat postop adult Supervision supervision available Case Cancelled in No Holding Area see comments below for reason Last Modified By: Kyung Ceja RN 08/20/21 10:23:15 Finalized By: Kyung Ceja RN Document Signatures Signed By: Kyung Ceja RN 08/20/21 10:23 Normal [facility] Patient Correspondenceon Patient Correspondence [id number] .[id number]:127 Normal [facility] Patient Correspondenceon Patient Correspondence [id number]:127 Normal [facility] Auth for Release of Medical Recordson 05-27-2021 Auth for Release of Medical Records [id number] .[id number]:127 [facility] Vital Signs Date Time Vital Sign Value Performing Clinician Facility 08-11-2023 12:14-0400 Body height 182.9 cm Macario Swanson DO Work Phone: [facility] 08-11-2023 12:14-0400 Body mass index (BMI) [Ratio] 30.52 kg/m2 Macario Swanson DO Work Phone: [facility] 08-11-2023 12:14-0400 Body weight 102.06 kg Macario Swanson DO Work Phone: [facility] 08-11-2023 12:14-0400 Diastolic blood pressure 88 mm[Hg] Macario Swanson DO Work Phone: [facility] 08-11-2023 12:14-0400 Heart rate 68 /min Macario Swanson DO Work Phone: [facility] 08-11-2023 12:14-0400 Systolic blood pressure 136 mm[Hg] Macario Swanson DO Work Phone: [facility] 12-09-2022 11:50-0500 Diastolic blood pressure 78 mm[Hg] Moon Parrishy Work Phone: [facility] DO Work Phone: 12-09-2022 11:50-0500 Systolic blood pressure 160 mm[Hg] Moon Wild Hoy Work Phone: [facility] DO Work Phone: 12-09-2022 11:28-0500 Body height 180.34 cm Moon M Hoy Work Phone: [facility] DO Work Phone: 12-09-2022 11:28-0500 Body mass index (BMI) [Ratio] 30.96 kg/m2 Moon M Hoy Work Phone: [facility] DO Work Phone: 12-09-2022 11:28-0500 Body surface area Derived from formula 2.2 m2 Moon M Hoy Work Phone: [facility] DO Work Phone: 12-09-2022 11:28-0500 Body weight 100.7 kg Moon M Hoy Work Phone: [facility] DO Work Phone: 12-09-2022 11:28-0500 Diastolic blood pressure 82 mm[Hg] Moon M Hoy Work Phone: [facility] DO Work Phone: 12-09-2022 11:28-0500 Heart rate 78 /min Moon M Hoy Work Phone: [facility] DO Work Phone: 12-09-2022 11:28-0500 Systolic blood pressure 168 mm[Hg] Moon M Hoy Work Phone: [facility] DO Work Phone: 08-03-2022 15:25-0400 Body height 180.34 cm Moon M Hoy Work Phone: [facility] DO Work Phone: 08-03-2022 15:25-0400 Body mass index (BMI) [Ratio] 31.24 kg/m2 Moon M Hoy Work Phone: [facility] DO Work Phone: 08-03-2022 15:25-0400 Body surface area Derived from formula 2.21 m2 Moon M Hoy Work Phone: [facility] DO Work Phone: 08-03-2022 15:25-0400 Body weight 101.61 kg Moon Torri Hoy Work Phone: [facility] DO Work Phone: 08-03-2022 15:25-0400 Diastolic blood pressure 72 mm[Hg] Moon Torri Hoy Work Phone: [facility] DO Work Phone: 08-03-2022 15:25-0400 Heart rate 61 /min Moon Torri Hoy Work Phone: [facility] DO Work Phone: 08-03-2022 15:25-0400 Systolic blood pressure 154 mm[Hg] Moon Torri Hoy Work Phone: [facility] DO Work Phone: 07-06-2022 10:05-0400 Body height 180.34 cm Moon Torri Hoy Work Phone: [facility] DO Work Phone: 07-06-2022 10:05-0400 Body mass index (BMI) [Ratio] 31.17 kg/m2 Moon M Hoy Work Phone: [facility] DO Work Phone: 07-06-2022 10:05-0400 Body surface area Derived from formula 2.21 m2 Moon M Hoy Work Phone: [facility] DO Work Phone: 07-06-2022 10:05-0400 Body weight 101.38 kg Moon M Hoy Work Phone: [facility] DO Work Phone: 07-06-2022 10:05-0400 Diastolic blood pressure 82 mm[Hg] Moon M Hoy Work Phone: [facility] DO Work Phone: 07-06-2022 10:05-0400 Heart rate 70 /min Moon M Hoy Work Phone: [facility] DO Work Phone: 07-06-2022 10:05-0400 Systolic blood pressure 150 mm[Hg] Moon M Hoy Work Phone: [facility] DO Work Phone: 05-21-2022 12:23-0400 Diastolic blood pressure 62 mm[Hg] Moon M Hoy Work Phone: [facility] DO Work Phone: 05-21-2022 12:23-0400 Systolic blood pressure 140 mm[Hg] Moon M Hoy Work Phone: [facility] DO Work Phone: 05-21-2022 11:45-0400 Body height 180.34 cm Moon M Hoy Work Phone: [facility] DO Work Phone: 05-21-2022 11:45-0400 Body mass index (BMI) [Ratio] 31.66 kg/m2 Moon M Hoy Work Phone: [facility] DO Work Phone: 05-21-2022 11:45-0400 Body surface area Derived from formula 2.23 m2 Moon M Hoy Work Phone: [facility] DO Work Phone: 05-21-2022 11:45-0400 Body weight 102.97 kg Moon M Hoy Work Phone: [facility] DO Work Phone: 05-21-2022 11:45-0400 Diastolic blood pressure 78 mm[Hg] Moon M Hoy Work Phone: [facility] DO Work Phone: 05-21-2022 11:45-0400 Heart rate 80 /min Moon M Hoy Work Phone: [facility] DO Work Phone: 05-21-2022 11:45-0400 Systolic blood pressure 152 mm[Hg] Moon M Hoy Work Phone: [facility] DO Work Phone: 05-08-2022 11:21-0400 Body temperature 98.2 [degF] MD Moon Harper Work Phone: [facility] 05-08-2022 11:21-0400 Diastolic blood pressure 83 mm[Hg] MD Moon Harper Work Phone: [facility] 05-08-2022 11:21-0400 Heart rate 65 /min MD Moon Harper Work Phone: [facility] 05-08-2022 11:21-0400 Respiratory rate 18 /min MD Moon Harper Work Phone: [facility] 05-08-2022 11:21-0400 SaO2% (BldA) [Mass fraction] 97 % MD Moon Harper Work Phone: [facility] 05-08-2022 11:21-0400 Systolic blood pressure 139 mm[Hg] MD Moon Harper Work Phone: [facility] 05-08-2022 05:32-0400 Body weight 99 kg MD Moon Harper Work Phone: [facility] 05-07-2022 15:28-0400 Body height 180.34 cm MD Moon Harper Work Phone: [facility] 05-07-2022 14:30-0400 Diastolic blood pressure 73 mm[Hg] MD Moon Harper Work Phone: [facility] 05-07-2022 14:30-0400 Heart rate 80 /min MD Moon Harper Work Phone: [facility] 05-07-2022 14:30-0400 Respiratory rate 18 /min MD Moon Harper Work Phone: [facility] 05-07-2022 14:30-0400 SaO2% (BldA) [Mass fraction] 97 % MD Moon Harper Work Phone: [facility] 05-07-2022 14:30-0400 Systolic blood pressure 135 mm[Hg] MD Moon Harper Work Phone: [facility] 05-07-2022 11:09-0400 Body temperature 98.5 [degF] MD Moon Harper Work Phone: [facility] 05-07-2022 11:04-0400 Body height 177.8 cm MD Moon Harper Work Phone: [facility] 05-07-2022 11:04-0400 Body weight 89.81 kg MD Moon Harper Work Phone: [facility] 04-12-2022 14:00-0400 Diastolic blood pressure 87 mm[Hg] MD Moon Harper Work Phone: [facility] 04-12-2022 14:00-0400 Heart rate 77 /min MD Moon Harper Work Phone: [facility] 04-12-2022 14:00-0400 Respiratory rate 16 /min MD Moon Harper Work Phone: [facility] 04-12-2022 14:00-0400 SaO2% (BldA) [Mass fraction] 97 % MD Moon Harper Work Phone: [facility] 04-12-2022 14:00-0400 Systolic blood pressure 156 mm[Hg] MD Moon Harper Work Phone: [facility] 04-12-2022 08:00-0400 Body temperature 98.3 [degF] MD Moon Harper Work Phone: [facility] 04-12-2022 06:00-0400 Body weight 100.7 kg MD Moon Harper Work Phone: [facility] 04-11-2022 15:49-0400 Inhaled oxygen flow rate 2 L/min MD Moon Harper Work Phone: [facility] 04-10-2022 23:56-0400 Body height 180.34 cm MD Moon Harper Work Phone: [facility] 04-10-2022 23:56-0400 Body mass index (BMI) [Ratio] 31.5 kg/m2 MD Moon Harper Work Phone: [facility] 04-03-2022 14:55-0400 Body height 180.34 cm Ada Barnes Other [facility] Other 04-03-2022 14:55-0400 Body mass index (BMI) [Ratio] 30.96 kg/m2 Ada Barnes Other [facility] Other 04-03-2022 14:55-0400 Body temperature 98.6 [degF] Ada Barnes Other [facility] Other 04-03-2022 14:55-0400 Body weight 100.7 kg Ada Barnes Other [facility] Other 04-03-2022 14:55-0400 Diastolic blood pressure 64 mm[Hg] Ada Barnes Other [facility] Other 04-03-2022 14:55-0400 Respiratory rate 18 /min Ada Barnes Other [facility] Other 04-03-2022 14:55-0400 SaO2% (BldA) [Mass fraction] 98 % Ada Barnes Other [facility] Other 04-03-2022 14:55-0400 Systolic blood pressure 140 mm[Hg] Ada Barnes Other [facility] Other 02-20-2022 14:35-0400 Body height 180.34 cm Moon Metrigoy Work Phone: YM-Ikvdfqumfd-Wlsahu 100 DO Work Phone: 02-20-2022 14:35-0400 Body mass index (BMI) [Ratio] 31.63 kg/m2 Moon Metrigoy Work Phone: JE-Cbwrpikpqe-Dwoxwe 100 DO Work Phone: 02-20-2022 14:35-0400 Body surface area Derived from formula 2.22 m2 Moon Metrigoy Work Phone: JF-Khgagqylqx-Pubojr 100 DO Work Phone: 02-20-2022 14:35-0400 Body weight 102.[address] [employer] Hoy Work Phone: TB-Yieddzhzuw-Chyoje 100 DO Work Phone: 02-20-2022 14:35-0400 Diastolic blood pressure 72 mm[Hg] Moon M Hoy Work Phone: JQ-Zbnpwhquld-Yeklxw 100 DO Work Phone: 02-20-2022 14:35-0400 Heart rate 61 /min Moon Metrigoy Work Phone: UY-Mhinfzcyjq-Ssfqed 100 DO Work Phone: 02-20-2022 14:35-0400 SaO2% (BldA) [Mass fraction] 97 % Moon M Hoy Work Phone: GL-Kislgphvyo-Dqqqba 100 DO Work Phone: 02-20-2022 14:35-0400 Systolic blood pressure 138 mm[Hg] Moon M Hoy Work Phone: MM-Opfcesnniq-Jnlfst 100 DO Work Phone: 02-05-2022 11:52-0400 Diastolic blood pressure 86 mm[Hg] Bayron Zumbar [facility] 02-05-2022 11:52-0400 Heart rate 52 /min Bayron Zumbar [facility] 02-05-2022 11:52-0400 Mean blood pressure 112 mm[Hg] Bayron Zumbar [facility] 02-05-2022 11:52-0400 Respiratory rate 12 /min Bayron Zumbar [facility] 02-05-2022 11:52-0400 Systolic blood pressure 164 mm[Hg] Bayron Zumbar [facility] 12-19-2021 13:37-0500 Body height 180.34 cm Moon M Hoy Work Phone: XL-Hfrrapkvkg-Zwlgsr 100 DO Work Phone: 12-19-2021 13:37-0500 Body mass index (BMI) [Ratio] 30.82 kg/m2 Moon M Hoy Work Phone: NG-Hsgmphxuom-Avwoce 100 DO Work Phone: 12-19-2021 13:37-0500 Body surface area Derived from formula 2.2 m2 Moon M Hoy Work Phone: JJ-Rxjzklavuy-Hnnhqj 100 DO Work Phone: 12-19-2021 13:37-0500 Body weight 100.25 kg Moon M Hoy Work Phone: ES-Ystrnhfggi-Tsszil 100 DO Work Phone: 12-19-2021 13:37-0500 Diastolic blood pressure 73 mm[Hg] Moon M Hoy Work Phone: CY-Dxksinqukv-Juwcmo 100 DO Work Phone: 12-19-2021 13:37-0500 Heart rate 65 /min Moon M Hoy Work Phone: WC-Mebpwdrjdl-Odijdd 100 DO Work Phone: 12-19-2021 13:37-0500 SaO2% (BldA) [Mass fraction] 97 % Moon M Hoy Work Phone: PW-Qoupbbujwe-Ngubqo 100 DO Work Phone: 12-19-2021 13:37-0500 Systolic blood pressure 174 mm[Hg] Moon M Hoy Work Phone: NY-Sfsimduyap-Hmroqd 100 DO Work Phone: 11-07-2021 14:34-0500 Body height 180.34 cm Moon M Hoy Work Phone: FP-Gopmlyislf-Comxvh 100 DO Work Phone: 11-07-2021 14:34-0500 Body mass index (BMI) [Ratio] 30.82 kg/m2 Moon M Hoy Work Phone: BO-Dascgktjmt-Ivxwzj 100 DO Work Phone: 11-07-2021 14:34-0500 Body surface area Derived from formula 2.2 m2 Moon M Hoy Work Phone: HG-Iqbccdzkrq-Fjinac 100 DO Work Phone: 11-07-2021 14:34-0500 Body weight 100.25 kg Moon M Hoy Work Phone: MQ-Udydcmbcms-Bdymbl 100 DO Work Phone: 11-07-2021 14:34-0500 Diastolic blood pressure 74 mm[Hg] Moon M Hoy Work Phone: MI-Lvkpiquuyh-Dzpvsp 100 DO Work Phone: 11-07-2021 14:34-0500 Heart rate 67 /min Moon M Hoy Work Phone: NO-Ghlanrkhwj-Xxqfwf 100 DO Work Phone: 11-07-2021 14:34-0500 SaO2% (BldA) [Mass fraction] 97 % Moon M Hoy Work Phone: ZR-Cfkrvcheln-Syoawo 100 DO Work Phone: 11-07-2021 14:34-0500 Systolic blood pressure 156 mm[Hg] Moon M Hoy Work Phone: TV-Qpdvusagwn-Bsbdep 100 DO Work Phone: 10-31-2021 14:18-0500 Body height 180.34 cm Moon M Hoy Work Phone: LG-Nmybjguoyj-Qxtzeem e 320 Work Phone: 10-31-2021 14:18-0500 Body mass index (BMI) [Ratio] 30.82 kg/m2 Moon M Hoy Work Phone: SB-Hsrljkizaj-Tinftlk e 320 Work Phone: 10-31-2021 14:18-0500 Body surface area Derived from formula 2.2 m2 Moon M Hoy Work Phone: WC-Qpmvownupx-Omgeyju e 320 Work Phone: 10-31-2021 14:18-0500 Body weight 100.25 kg Moon M Hoy Work Phone: VD-Cvzsomcogh-Tbhpwgg e 320 Work Phone: 10-31-2021 14:18-0500 Diastolic blood pressure 66 mm[Hg] Moon M Hoy Work Phone: GC-Nzjyubbtav-Rudmpwa e 320 Work Phone: 10-31-2021 14:18-0500 Heart rate 62 /min Moon M Hoy Work Phone: XF-Hsupvarvcj-Xnuxzpk e 320 Work Phone: 10-31-2021 14:18-0500 SaO2% (BldA) [Mass fraction] 98 % Moon M Hoy Work Phone: LO-Ckpwosgrbp-Drlvadq e 320 Work Phone: 10-31-2021 14:18-0500 Systolic blood pressure 142 mm[Hg] Moon M Hoy Work Phone: LM-Dztlsdkrdi-Xwwioxb e 320 Work Phone: 10-28-2021 14:58-0500 Body height 180.34 cm Moon M Hoy Work Phone: WO-Nuxbsiuotw-WXJ [facility] DO Work Phone: 10-28-2021 14:58-0500 Body mass index (BMI) [Ratio] 30.54 kg/m2 Moon M Hoy Work Phone: LM-Puballqfcw-IXT [facility] DO Work Phone: 10-28-2021 14:58-0500 Body surface area Derived from formula 2.19 m2 Moon M Hoy Work Phone: ZQ-Maoddqrvcc-HHV [facility] DO Work Phone: 10-28-2021 14:58-0500 Body weight 99.34 kg Moon M Hoy Work Phone: ZC-Miyoipapyx-NUP [facility] DO Work Phone: 10-28-2021 14:58-0500 Diastolic blood pressure 72 mm[Hg] Moon M Hoy Work Phone: DN-Vcntrntnkc-WLL [facility] DO Work Phone: 10-28-2021 14:58-0500 Heart rate 74 /min Moon M Hoy Work Phone: [facility] DO Work Phone: 10-28-2021 14:58-0500 Respiratory rate 16 /min Moon M Hoy Work Phone: [facility] DO Work Phone: 10-28-2021 14:58-0500 Systolic blood pressure 168 mm[Hg] Moon M Hoy Work Phone: [facility] DO Work Phone: 10-02-2021 11:48-0500 Diastolic blood pressure 80 mm[Hg] Moon M Hoy Work Phone: [facility] DO Work Phone: 10-02-2021 11:48-0500 Systolic blood pressure 154 mm[Hg] Moon M Hoy Work Phone: [facility] DO Work Phone: 10-02-2021 11:47-0500 Body height 180.34 cm Moon M Hoy Work Phone: [facility] DO Work Phone: 10-02-2021 11:47-0500 Body mass index (BMI) [Ratio] 31.1 kg/m2 Moon M Hoy Work Phone: [facility] DO Work Phone: 10-02-2021 11:47-0500 Body surface area Derived from formula 2.21 m2 Moon M Hoy Work Phone: [facility] DO Work Phone: 10-02-2021 11:47-0500 Body weight 101.15 kg Moon M Hoy Work Phone: [facility] DO Work Phone: 10-02-2021 11:47-0500 Diastolic blood pressure 84 mm[Hg] Moon M Hoy Work Phone: [facility] DO Work Phone: 10-02-2021 11:47-0500 Heart rate 60 /min Moon M Hoy Work Phone: [facility] DO Work Phone: 10-02-2021 11:47-0500 Systolic blood pressure 160 mm[Hg] Moon M Hoy Work Phone: [facility] DO Work Phone: 09-22-2021 16:45-0500 Body height 180.34 cm Lenny Armando Other [facility] Other 09-22-2021 16:45-0500 Body mass index (BMI) [Ratio] 31.38 kg/m2 Lenny Armando Other [facility] Other 09-22-2021 16:45-0500 Body weight 102.06 kg Lenny Armando Other [facility] Other 09-22-2021 16:45-0500 Diastolic blood pressure 88 mm[Hg] Lenny Armando Other [facility] Other 09-22-2021 16:45-0500 Respiratory rate 18 /min Lenny Armando Other [facility] Other 09-22-2021 16:45-0500 SaO2% (BldA) [Mass fraction] 99 % Lenny Armando Other [facility] Other 09-22-2021 16:45-0500 Systolic blood pressure 160 mm[Hg] Lenny Armando Other [facility] Other 09-18-2021 10:00-0500 Body height 180.34 cm Lenny Mooneysalas Other [facility] Other 09-18-2021 10:00-0500 Body mass index (BMI) [Ratio] 31.38 kg/m2 Lenny Mooneysalas Other [facility] Other 09-18-2021 10:00-0500 Body weight 102.06 kg Lenny Mooneysalas Other [facility] Other 09-18-2021 10:00-0500 Diastolic blood pressure 82 mm[Hg] Lenny Tr Other [facility] Other 09-18-2021 10:00-0500 Respiratory rate 18 /min Lenny Mooneysalas Other [facility] Other 09-18-2021 10:00-0500 SaO2% (BldA) [Mass fraction] 98 % Lenny Mooneysalas Other [facility] Other 09-18-2021 10:00-0500 Systolic blood pressure 144 mm[Hg] Lenny Tr Other [facility] Other Encounters Encounter Date Encounter Type Care Provider Facility Start: 10-25-2023 End: 10-25-2023 ambulatory Macario Corona Facility:[facility] Start: 09-29-2023 End: 09-30-2023 ambulatory [facility] Start: 09-29-2023 End: 09-29-2023 Subsequent hospital visit by physician Inga Moralez Echo/Vasc Room 2 [facility] Comment on above: Atrial fibrillation, unspecified type (CMS/HCC); 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; Benign essential hypertension; Stenosis of carotid artery, unspecified laterality; Carotid atherosclerosis, unspecified laterality; Bilateral carotid bruits Start: 09-23-2023 End: 09-23-2023 ambulatory Macario Corona Facility:[facility] Start: 09-23-2023 End: 09-23-2023 ambulatory MD Moon Harper Work Phone: [facility] Work Phone: Start: 09-23-2023 End: 09-23-2023 Patient encounter procedure MD Moon Harper Work Phone: [facility] Start: 08-23-2023 End: 08-23-2023 ambulatory Moon Harper Facility:[facility] Start: 08-23-2023 End: 08-23-2023 ambulatory MD Moon Harper Work Phone: [facility] Work Phone: Start: 08-23-2023 End: 08-23-2023 Patient encounter procedure MD Moon Harper Work Phone: [facility] Start: 08-11-2023 End: 08-11-2023 ambulatory [facility] Start: 08-11-2023 End: 08-11-2023 Office outpatient visit 25 minutes [facility] Work Phone: [facility] Comment on above: Atrial fibrillation, unspecified type (CMS/HCC); 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; Benign essential hypertension; History of [place] (myocardial infarction); Mixed hyperlipidemia; Implantable loop recorder present; Stenosis of carotid artery, unspecified laterality; Carotid atherosclerosis, unspecified laterality; Bilateral carotid bruits Start: 07-22-2023 End: 07-22-2023 ambulatory Macario Corona Facility:[facility] Start: 07-22-2023 End: 07-22-2023 ambulatory MD Moon Harper Work Phone: [facility] Work Phone: Start: 07-22-2023 End: 07-22-2023 Patient encounter procedure MD Moon Harper Work Phone: [facility] Start: 06-22-2023 End: 06-22-2023 ambulatory Macario Corona Facility:[facility] Start: 06-22-2023 End: 06-22-2023 Patient encounter procedure MD Moon Harper Work Phone: [facility] Start: 06-22-2023 End: 06-22-2023 ambulatory MD Moon Harper Work Phone: [facility] Work Phone: Start: 05-20-2023 End: 05-20-2023 ambulatory Macario Corona Facility:[facility] Start: 05-20-2023 End: 05-20-2023 ambulatory MD Moon Harper Work Phone: [facility] Work Phone: Start: 05-20-2023 End: 05-20-2023 Patient encounter procedure MD Moon Harper Work Phone: [facility] Start: 05-20-[address] Moon Harper Facility:[id number] Start: 05-12-2023 Rx Renewal Moon Harper Work Phone: [facility] DO Work Phone: Start: 04-21-2023 Rx Renewal Moon Harper Work Phone: [facility] DO Work Phone: Start: 04-19-2023 End: 04-19-2023 ambulatory Macario Corona Facility:[facility] Start: 04-19-2023 End: 04-19-2023 ambulatory MD Moon Harper Work Phone: [facility] Work Phone: Start: 04-19-2023 End: 04-19-2023 Patient encounter procedure MD Moon Harper Work Phone: [facility] Start: 04-19-[address] Moon Harper Facility:[id number] Start: 02-17-2023 End: 02-18-[address] MOON HARPER . Facility:[id number] Start: 02-15-2023 End: 02-15-2023 ambulatory Macario Corona Facility:[facility] Start: 02-15-2023 End: 02-15-2023 ambulatory MD Moon Harper Work Phone: [facility] Work Phone: Start: 02-15-2023 End: 02-15-2023 Patient encounter procedure MD Moon Harper Work Phone: [facility] Start: 02-15-[address] Moon Harper Facility:[id number] Start: 01-14-2023 End: 01-14-[address] Moon Harper Facility:[id number] Start: 01-14-2023 End: 01-14-2023 ambulatory MD Moon Harper Work Phone: [facility] Work Phone: Start: 01-14-2023 End: 01-14-2023 Patient encounter procedure MD Moon Harper Work Phone: [facility] Check Start: 01-04-2023 End: 01-04-[address] MOON HARPER . Facility:H1 Start: 12-15-[address] Moon Harper Facility:[id number] Start: 12-14-2022 End: 12-14-2022 ambulatory Macario Corona Facility:[facility] Start: 12-14-2022 End: 12-14-2022 ambulatory MD Moon Harper Work Phone: [facility] Work Phone: Start: 12-14-2022 End: 12-14-2022 Patient encounter procedure MD Moon Harper Work Phone: [facility] Check Start: 12-09-2022 Office outpatient vi sit 25 minutes Moon Harper Work Phone: [facility] 250 DO Work Phone: Start: 12-09-2022 ambulatory Gisele Schilling Facility:1 [id number] Start: 11-14-[address] Moon Harper Facility:[id number] Start: 11-13-2022 End: 11-13-2022 Patient encounter procedure MD Moon Harper Work Phone: [facility] Check Start: 10-08-[address] Moon Harper Facility:[id number] Start: 08-14-[address] Moon Harper Facility:[id number] Start: 08-05-2022 Patient encounter procedure Moon Harper Work Phone: [facility] 250 DO Work Phone: Start: 08-04-2022 End: 08-05-[address] MOON HARPER . Facility:H1 Start: 08-03-2022 Office outpatient vi sit 15 minutes Moon Parrishdante Work Phone: [facility] 250 DO Work Phone: Start: 08-03-2022 Patient encounter procedure Moon Harper Work Phone: [facility] 250 DO Work Phone: Start: 08-03-2022 ambulatory Gisele Schilling Facility:1 [id number] Start: 07-27-2022 End: 07-27-[address] MOON HRAPER . Facility:H1 Start: 07-06-2022 ambulatory Gisele Schilling Facility:1 [id number] Start: 07-01-2022 End: 07-01-[address] MOON HARPER . Facility:H1 Start: 05-27-2022 End: 05-30-[address] MOON HARPER . Facility:H1 Start: 05-21-2022 Transitional care manage srvc 14 day discharge Moon Harper Work Phone: [facility] 250 DO Work Phone: Start: 05-18-2022 End: 10-06-[address] MOON HARPER . Facility:H1 Start: 05-07-2022 End: 05-08-2022 Evaluation and management of inpatient MD Moon Harper Work Phone: [facility] [place] [facility] Start: 04-10-2022 End: 04-12-2022 Evaluation and management of inpatient MD Moon Harper Work Phone: [facility] [place] [facility] Start: 04-10-2022 End: 04-11-2022 ambulatory MACY STUBBS Facility:H1 Start: 04-03-2022 End: 04-03-2022 ambulatory Ada Barnes Other [facility] [employer] Other Start: 04-03-2022 Office outpatient vi sit 15 minutes Ada Barnes [facility] Start: 04-01-2022 End: 04-01-[address] MOON HARPER . Facility:H1 Start: 02-20-2022 Office outpatient vi sit 15 minutes Moon Harper Work Phone: SB-Denoilmasp-Yxawro 100 DO Work Phone: Start: 02-10-2022 Patient encounter procedure Moon Harper Work Phone: ZW-Ydzwoynoyx-Laupv Work Phone: Start: 02-05-2022 End: 02-05-2022 Pain Management Bayron Rodriguez [facility] Start: 01-09-2022 ABLATION, Provider: [facility],[id number], Status: Pen, Time: 8:00 AM Moon Harper Work Phone: CB-Bqfkgaksfz-Kotmwaxb [facility] 2300 Work Phone: Start: 01-01-2022 AUDIT Moon Harper Work Phone: VG-Rqvxrfutor-Lkgvobwm [facility] 2300 Work Phone: Start: 12-24-2021 AUDIT Moon M Hoy Work Phone: SE-Xsppofntjd-Pazqqxzn [facility] 2300 Work Phone: Start: 12-19-2021 Office outpatient vi sit 25 minutes Moon M Hoy Work Phone: VD-Qgsikeezcl-Xplrra 100 DO Work Phone: Start: 11-10-2021 AUDIT Moon M Hoy Work Phone: KD-Meevacbylw-Qbvqjly [address] [place] Work Phone: Start: 11-07-2021 Office outpatient vi sit 25 minutes Moon M Hoy Work Phone: QM-Eemygiqxxo-Tczomg 100 DO Work Phone: Start: 10-31-2021 Office outpatient ne w 60 minutes Moon M Hoy Work Phone: YT-Nzkhjwsfzw-Zypbhvle 320 Work Phone: Start: 10-28-2021 Office outpatient ne w 60 minutes Moon M Hoy Work Phone: YY-Qhmfcbahoo-[facility] 1500 DO Work Phone: Start: 10-28-2021 Patient encounter procedure Moon M Hoy Work Phone: WL-Pjgfxmbwlj-GMU [facility] 1500 DO Work Phone: Start: 10-02-2021 Office consultation new/estab patient 80 min Moon M Hoy Work Phone: [facility] 250 DO Work Phone: Start: 10-02-2021 Office outpatient ne w 60 minutes Moon M Hoy Work Phone: [facility] Work Phone: Start: 09-22-2021 End: 09-22-2021 ambulatory Lenny Armando Other [employer] Other Start: 09-22-2021 Office outpatient vi sit 15 minutes Lenny Armando [facility] Vascular Surgery Start: 09-18-2021 End: 09-18-2021 ambulatory Lenny Mooneysalas Other [facility] [employer] Other Start: 09-18-2021 Office outpatient vi sit 25 minutes Lenny Armando [facility] Vascular Surgery Patient encounter status Moon Harper Work Phone: LV-Moqbnzjxfo-Pqhziehm [facility] 2300 Work Phone: Procedures Date Procedure Procedure Detail Performing Clinician Start: 09-29-2023 VASC US CAROTID JOE RY DUPLEX BILATERAL MACARIO SWANSON Start: 05-07-2022 Plain chest X-ray MD Mnoreal Work Phone: Start: 04-11-2022 Plain chest X-ray MD Monreal Work Phone: Start: 01-07-2022 Epidural injection o f lumbar spine using fluoroscopic guidance [email or web address] Comment on above: L5-S1 70% Relief Start: 08-20-2021 Epidural injection o f lumbar spine using fluoroscopic guidance [email or web address] Comment on above: L4-5 90% Relief for 6 weeks Start: 09-11-2020 Epidural injection o f lumbar spine using fluoroscopic guidance [email or web address] Comment on above: L4-5 MART- 80% relief Start: 11-01-2019 Epidural injection o f lumbar spine using fluoroscopic guidance [employer] Comment on above: L4-5 MART- 97% relief for 10 days, now 75% relief Start: 10-18-2011 right large toenail removal [email or web address] Start: 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 [email or web address] 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[email or web address] Start: 10-18-1996 heel spur Bayron Mercado Start: 10-18-1976 Vasectomy Bayron Mercado Start: 10-18-1969 oral surgeries Bayron Rodriguez Start: 10-18-1941 Tonsillectomy and adenoidectomy Bayron Rodriguez Colonoscopy Bayron Rodriguez History of placement of stent for coronary artery disease S/P drug eluting coronary stent placement Moon Harper Work Phone: Implantation of insertable loop recorder Moon Harper Work Phone: Mouth and face operations Do nora Harper Work Phone: Percutaneous translu heather coronary angioplasty Moon Harper Work Phone: SARS Antigen (LFIA) MD Ntihya robison Francoisdante Work Phone: Total colonoscopy Moon Harper Work Phone: Plan of Treatment Date Care Activity Detail Author Start: 08-10-2024 End: 08-10-2024 Patient encounter procedure 08/10/2024 11:20 AM EDT Office Visit [address] [place] [id number] Macario Swanson DO [address] [facility], [address] [place] [address] [facility] Start: 09-29-2023 End: 09-29-2023 Patient encounter procedure 09/29/2023 10:45 AM EST Appointment [id number] [place] [id number] [facility] Start: 08-11-2023 End: 08-11-2025 US.doppler Carotid arteries - bilateral Vascular US Carotid Artery Duplex Bilateral Vascular Ultrasound Routine Atrial fibrillation, unspecified type (CMS/HCC) 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 Benign essential hypertension Stenosis of carotid artery, unspecified laterality Carotid atherosclerosis, unspecified laterality Bilateral carotid bruits Expected: 08/11/2023 (Approximate), Expires: 08/11/2025 [facility] Service Area Work Phone: Comment on above: Expected: 08/11/2023 (Approximate), Expires: 08/11/2025 Start: 08-11-2023 FUV, Provider: Macario Swanson, Status: Pen, Time: 11:20 AM FUV, Provider: Macario Swanson, Status: Pen, Time: 11:20 AM -[facility] 250 DO Work Phone: Start: 12-03-2022 FUV, Provider: Macario Swanson, Status: Pen, Time: 10:20 AM FUV, Provider: Maacrio Swanson, Status: Pen, Time: 10:20 AM -[facility] 250 DO Work Phone: Start: 10-30-2022 FUV, Provider: Addy Alas, Status: Pen, Time: 2:30 PM FUV, Provider: Addy Alas, Status: Pen, Time: 2:30 PM NH-Ixcjzjllds-Dtkkhvw e 320 Work Phone: Start: 08-21-2022 FUV, Provider: Addy Alas, Status: Pen, Time: 2:15 PM FUV, Provider: Addy Alas, Status: Pen, Time: 2:15 PM BF-Qojxdcurpe-Zoozyq 100 DO Work Phone: Start: 07-06-2022 FUV, Provider: Gisele Bill, Status: Pen, Time: 10:00 AM FUV, Provider: Gisele Bill, Status: Pen, Time: 10:00 AM -[facility] 250 DO Work Phone: Start: 05-08-2022 [facility] Work Phone: Start: 05-07-2022 Referral to mining teacher [facility] Work Phone: Start: 05-07-2022 Hospital admission [facility] Work Phone: Start: 05-07-2022 [facility] Work Phone: Start: 05-07-2022 [facility] Work Phone: Start: 04-12-2022 [facility] Work Phone: Start: 04-11-2022 [facility] Work Phone: Start: 04-11-2022 Hospital admission [facility] Work Phone: Start: 04-11-2022 [facility] Work Phone: Start: 04-11-2022 Hospital admission [facility] Work Phone: Start: 04-11-2022 Referral to mining teacher [facility] Work Phone: Start: 04-10-2022 Sleep disorder assessment [facility] Work Phone: Start: 04-10-2022 Dilation of Coronary Artery, One Artery with Three Drug-eluting Intraluminal Devices, Percutaneous Approach Dilation of Coronary Artery, One Artery with Three Drug-eluting Intraluminal Devices, Percutaneous Approach [facility] Start: 04-10-2022 Fluoroscopy of Left Heart using Low Osmolar Contrast Fluoroscopy of Left Heart using Low Osmolar Contrast [facility] Start: 04-10-2022 Fluoroscopy of Multi ple Coronary Arteries using Low Osmolar Contrast Fluoroscopy of Multiple Coronary Arteries using Low Osmolar Contrast [facility] Start: 04-10-2022 Measurement of Cardi ac Sampling and Pressure, Left Heart, Percutaneous Approach Measurement of Cardiac Sampling and Pressure, Left Heart, Percutaneous Approach [facility] Start: 04-10-2022 Orthodoxy of Cardi ac Rhythm, Single Orthodoxy of Cardiac Rhythm, Single [facility] Start: 02-20-2022 FUVHOSP, Provider: Addy Alas, Status: Pen, Time: 2:45 PM FUVHOSP, Provider: Addy Alas, Status: Pen, Time: 2:45 PM RK-Rawmekoxpw-Uunwm Work Phone: Start: 01-29-2022 FUV, Provider: Macario Swanson, Status: Pen, Time: 11:20 AM FUV, Provider: Macario Swanson, Status: Pen, Time: 11:20 AM SL-Cirsuxxztp-Neiyyzq e 320 Work Phone: Start: 01-09-2022 ABLATION, Provider: [facility],[id number], Status: Pen, Time: 8:00 AM ABLATION, Provider: [facility],[id number], Status: Pen, Time: 8:00 AM LA-Giqjrworya-Elyckzw e [facility] 2300 Work Phone: Start: 12-19-2021 FUV, Provider: Addy Alas, Status: Pen, Time: 3:00 PM FUV, Provider: Addy Alas, Status: Pen, Time: 3:00 PM OY-Dsbuldzfkm-Tjyyfa 100 DO Work Phone: Start: 07-08-2021 DTaP/Tdap/Td Vaccine s (1 - Tdap) DTaP/Tdap/Td Vaccines (1 - Tdap) [facility] Start: 02-11-2021 COVID-19 Vaccine (3 - Moderna series) COVID-19 Vaccine (3 - Moderna series) [facility] Start: 12-19-2007 Zoster Vaccines (2 o f 3) Zoster Vaccines (2 of 3) [facility] Start: 1955 Diabetes mellitus screening Diabetes Screening [facility] Start: 1937 Lipid panel Lipid Panel [facility] Start: 1937 Medicare Annual Wellness Visit Medicare Annual Wellness Visit (AWV) [facility] Patient referral [facility] Work Phone: SARS-CoV-2 (COVID-19 ) N gene [Presence] in Respiratory specimen by MERLYN with probe detection [facility] Work Phone: Troponin I.cardiac [Mass/volume] in Serum or Plasma by High sensitivity method [facility] Work Phone: End: 09-29-2023 US.doppler Carotid arteries - bilateral [facility] Service Area Work Phone: Comment on above: Once for 1 Occurrenc es starting 09/29/2023 until 09/29/2023 Immunizations Immunization Date Immunization Notes Care Provider Afshan maynard 07-22-2022 influenza virus vacc ine, unspecified formulation Macario Sky DO Work Phone: [facility] Work Phone: 07-10-2021 Seasonal trivalent influenza vaccine, adjuvanted, preservative free Moon M Hoy Work Phone: [facility] 250 DO Work Phone: 07-07-2021 tetanus and diphther ia toxoids, adsorbed, preservative free, for adult use (5 Lf of tetanus toxoid and 2 Lf of diphtheria toxoid) Moon M Hoy Work Phone: [facility] 250 DO Work Phone: 12-17-2020 Moderna COVID-19 Vac cine 100 MCG/0.5ML Intramuscular Suspension Moon M Hoy Work Phone: [facility] 250 DO Work Phone: 11-19-2020 Moderna COVID-19 Vac cine 100 MCG/0.5ML Intramuscular Suspension Moon M Hoy Work Phone: [facility] 250 DO Work Phone: 08-06-2020 influenza, high dose seasonal, preservative-free Moon M Hoy Work Phone: [facility] 250 DO Work Phone: 06-29-2019 influenza virus vacc ine, live, attenuated, for intranasal use Bayron Rodriguez [facility] 06-29-2019 Seasonal trivalent influenza vaccine, adjuvanted, preservative free Moon M Hoy Work Phone: [facility] 250 DO Work Phone: 07-18-2018 Seasonal trivalent influenza vaccine, adjuvanted, preservative free Moon M Hoy Work Phone: [facility] 250 DO Work Phone: 07-21-2017 influenza, injectabl e, quadrivalent, preservative free Moon M Hoy Work Phone: [facility] 250 DO Work Phone: 11-17-2016 influenza, injectabl e, quadrivalent, preservative free Moon M Hoy Work Phone: [facility] 250 DO Work Phone: 11-17-2016 pneumococcal conjuga te vaccine, 13 valent Moon M Hoy Work Phone: [facility] 250 DO Work Phone: 07-20-2016 influenza, high dose seasonal, preservative-free Moon M Hoy Work Phone: [facility] 250 DO Work Phone: 07-21-2015 influenza, high dose seasonal, preservative-free Moon M Hoy Work Phone: [facility] 250 DO Work Phone: 07-18-2015 pneumococcal polysaccharide vaccine, 23 valent Moon M Hoy Work Phone: [facility] 250 DO Work Phone: 10-24-2007 zoster vaccine, live Moon M Hoy Work Phone: [facility] 250 DO Work Phone: Payers Date Payer Category Payer Unknown 2022 Self-pay [id number] 2002 Medicare MEDICARE MEDICAR E PART A AND B [id number] 2002-Present [address] [place] [address] [id number] 1959 Medicare [id number] [id number] 1959 Unknown [id number] 1937 Unknown [id number] 2.16.840.1.460653.3.579.2.593 1937 Unknown [id number] 2.16.840.1.120245.3.579.2.593 1937 Unknown [id number] 2.16.840.1.903350.3.579.2.593 1937 Unknown [id number] 2.840.1.858743.3.579.2.593 1937 Unknown [id number] 2.16.840.1.687688.3.579.2.593 1937 Unknown [id number] 2.16.840.1.997138.3.579.2.593 1937 Unknown [id number] 2.16.840.1.054893.3.579.2.593 1937 Unknown [id number] 2.840.1.343668.3.579.2.593 1937 Unknown [id number] 2.16.840.1.591845.3.579.2.593 1937 Unknown [id number] 2.16.840.1.225471.3.579.2.356 1937 Unknown [id number] 2.16.840.1.388235.3.579.2.356 1937 Unknown [id number] 2.16.840.1.639106.3.579.2.356 1937 Unknown [id number] 2.16.840.1.631492.3.579.2.356 1937 Unknown [id number] 2.840.1.069901.3.579.2.356 1937 Unknown [id number] 2.840.1.017909.3.579.2.356 1937 Unknown [id number] 2.840.1.556175.3.579.2.356 1937 Unknown [id number] 2.840.1.513450.3.579.2.356 1937 Unknown [id number] 2.840.1.320669.3.579.2.356 1937 Unknown [id number] 2.840.1.633430.3.579.2.356 1937 Unknown [id number] 2.840.1.039554.3.579.2.356 1937 Unknown [id number] 2.840.1.102396.3.579.2.356 1937 Unknown [id number] 2.840.1.618896.3.579.2.1244 1937 Unknown [id number] 2.840.1.442455.3.579.2.1246 Unknown [id number] 2.840.1.691449.19 Unknown [id number] 2.840.1.546657.3.579.2.531 Unknown [id number] 2.840.1.567270.3.579.2.531 Unknown [id number] 2.840.1.262481.3.579.2.531 Unknown [id number] 2.840.1.310133.3.579.2.531 Unknown [id number] 2.840.1.349468.3.579.2.531 Unknown [id number] 2.16.840.1.143233.3.579.2.531 Unknown [id number] 2.16.840.1.774294.3.579.2.531 Unknown [id number] 2.16.840.1.210941.3.579.2.531 Unknown [id number] 2.16.840.1.879040.3.579.2.531 Unknown [id number] 2.16.840.1.559814.3.579.2.531 Social History Date Type Detail Facility Start: 08-11-2023 No alcohol use No alcohol use -Nor [facility] 250 DO Work Phone: Comment on above: coffee daily; Quit smoking 20 year s ago; Start: 02-05-2020 End: 08-11-2023 Tobacco smoking status Ex-smoker (finding) [facility] Comment on above: Quit smoking in 1983 Tobacco smoking status Never [facility] Comment on above: Quit smoking in 1983 Start: 08-11-2023 Sex Assigned At Male N [employer] Other Start: 1935 Sex Assigned At Male F [facility] End: 10-18-1984 History of tobacco use Current smoker [facility] Work Phone: End: 10-18-1984 History of tobacco use Pipe Smoker [facility] Work Phone: Start: 08-11-2023 Tobacco use and exposure Smokeless tobacco non-user [facility] Work Phone: Start: 08-11-2023 Alcohol intake Lifetime non-d pinky (finding) [facility] Work Phone: Start: 08-11-2023 Alcohol Comment past alooholic [facility] Work Phone: Start: 1935 Sex Assigned At Not on file U [facility] Work Phone: Start: 08-01-2023 End: 09-29-2023 Exposure to SARS-CoV-2 (event) Not sure [facility] Medical Equipment Procedure Code Equipment Code Equipment Origin al Text Equipment Identifier Dates Drug-eluting coronary artery stent, [id number] lymer-coated ()[id number] FDA Start: 04-11-2022 Drug-eluting coronary artery stent, [id number] lymer-coated ()[id number] FDA Start: 04-11-2022 Goals Date Patient Goal Desired Activity /State Functional Status Date Assessment Result Facility 05-08-2022 Functional status Patient at Baseline [facility] Work Phone: 05-07-2022 Functional status Patient at Baseline [facility] Work Phone: 04-12-2022 Functional status Patient at Baseline [facility] Work Phone: Mental Status Date Assessment Result Facility 05-08-2022 Cognitive function Cognitive Sta tus Patient at Baseline [facility] Work Phone: 05-07-2022 Cognitive function Cognitive Sta tus Patient at Baseline [facility] Work Phone: 04-12-2022 Cognitive function Cognitive Sta tus Patient at Baseline [facility] Work Phone: Clinical Notes 05-03-2019 to 08-11-2023 Macario Vital Sky, DO - 08/11/2023 11:20 AM EDTPatient Instructions Note Date & Type Note Facility 08-11-2023 History of Present illness Narrative Subjective Macario Ash is a 88 y.o. male Chief Complaint Follow-up 88-year-old healthy gentleman, continues working actively on a daily basis as a lal returns for routine follow-up and is doing very well without any cardiovascular events, complaints, repeat hospitalizations, denies nitrate usage. He does complain of nocturnal acid reflux that is palliated by Tums and Carafate. His last loop recorder did not demonstrate any arrhythmia or A-fib at all. 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 Recommendations, prescribe Carafate 1 g nightly, continue current therapies, will follow-up in 1 year Review of Systems All other systems reviewed and are negative. Visit Vitals BP 136/88 (BP Location: Left arm, Patient Position: Sitting) Pulse 68 Ht 1.829 m (6') Wt 102 kg (225 lb) BMI 30.52 kg/m Smoking Status Former BSA 2.28 m Objective Physical Exam Constitutional: Appearance: Normal appearance. He is normal weight. HENT: Nose: Nose normal. Neck: Vascular: Carotid bruit present. Cardiovascular: Rate and Rhythm: Normal rate. Pulses: Normal pulses. Heart sounds: Normal heart sounds. Pulmonary: Effort: Pulmonary effort is normal. Abdominal: General: Bowel sounds are normal. Palpations: Abdomen is soft. Genitourinary: Rectum: Normal. Musculoskeletal: General: Normal range of motion. Cervical back: Normal range of motion. Right lower leg: No edema. Left lower leg: No edema. Skin: General: Skin is warm and dry. Neurological: General: No focal deficit present. Mental Status: He is alert. Psychiatric: Mood and Affect: Mood normal. Behavior: Behavior normal. Thought Content: Thought content normal. Judgment: Judgment normal. Current Medications Current Outpatient Medications: acetaminophen (Tylenol Extra Strength) 500 mg tablet, TAKE 1 TABLET EVERY 4 TO 6 HOURS NEEDED., Disp: , Rfl: aspirin 81 mg EC tablet, Take 1 tablet (81 mg) by mouth once daily., Disp: , Rfl: atorvastatin (Lipitor) 40 mg tablet, Take 1 tablet (40 mg) by mouth once daily at bedtime., Disp: , Rfl: celecoxib (CeleBREX) 200 mg capsule, Take 1 capsule (200 mg) by mouth once daily., Disp: , Rfl: cetirizine (ZyrTEC) 10 mg tablet, Take 1 tablet (10 mg) by mouth once daily., Disp: , Rfl: cyanocobalamin (Vitamin B-12) 1,000 mcg/mL injection, INJECT 1 (ONE) ml INTRAMUSCULARLY once a month, Disp: , Rfl: diclofenac sodium 1 % kit, APPLY TO THE AFFECTED AREA(S) DAILY as directed, Disp: , Rfl: EPINEPHrine 0.3 mg/0.3 mL injection syringe, USE DIRECTED., Disp: , Rfl: furosemide (Lasix) 20 mg tablet, Take 1 tablet (20 mg) by mouth once daily., Disp: , Rfl: lactobacillus acidophilus (Florajen Acidophilus) capsule, Take 1 capsule by mouth once daily., Disp: , Rfl: metoprolol succinate XL (Toprol-XL) 25 mg 24 hr tablet, 12.5 tablets (312.5 mg) once daily., Disp: , Rfl: nitroglycerin (Nitrostat) 0.4 mg SL tablet, Place 1 tablet (0.4 mg) under the tongue every 5 minutes if needed for chest pain., Disp: , Rfl: omeprazole (PriLOSEC) [address] capsule, Take 1 capsule (20 mg) by mouth once daily., Disp: , Rfl: triamcinolone (Kenalog) 0.1 % cream, USE DIRECTED., Disp: , Rfl: valsartan (Diovan) 320 mg tablet, Take 1 tablet (320 mg) by mouth once daily., Disp: , Rfl: Assessment/Plan 1. Atrial fibrillation, unspecified type (CMS/HCC) 2. 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 Benign essential hypertension 4. History of OK (myocardial infarction) 5. Mixed hyperlipidemia 6. Implantable loop recorder present 7. Stenosis of carotid artery, unspecified laterality 8. Carotid atherosclerosis, unspecified laterality documented in this encounter [facility] Work Phone: 08-11-2023 Instructions Morenita Mcneil CMA - 08/11/2023 11:20 AM EDT Please bring all medicines, vitamins, and herbal supplements with you when you come to the office. Prescriptions will not be filled unless you are compliant with your follow up appointments or have a follow up appointment scheduled as per instruction of your physician. Refills should be requested at the time of your visit. documented in this encounter [facility] Work Phone: 08-04-2022 Note CONSULTATION CONSULTATION DATE: 08/04/2022 CHIEF COMPLAINT: Low back pain, bilateral posterior thigh pain. HISTORY OF PRESENT ILLNESS: This is a very pleasant, 87-year-old gentleman who was referred to us by Dr. Harper. The patient has had chronic pain. The patient states the pain is in his low back and his buttocks bilaterally, does not radiate past his knee. The patient is a very active individual. Twisting, pushing, walking, lifting, bending, climbing stairs, activities and cold weather aggravate the patient's pain. Sitting down mitigates the pain as does lying down. The patient takes Tylenol two tablets on a q.i.d. basis, Celebrex 100 mg b.i.d., Plavix, Eliquis. The patient's PAST MEDICAL HISTORY / SURGICAL HISTORY / REVIEW OF SYSTEMS are noted on the chart, along with the MEDICATION LIST / ALLERGIES and the RADIOLOGICAL IMAGES. PHYSICAL EXAM: Upon physical examination, this is a very young, vital, 87-year- old gentleman, who ambulates without any assistive devices. Balance is maintained. HEAD: Atraumatic, normocephalic. NECK: Slight crepitus is present. HEART: Non-orthopneic. LUNGS: Non-labored breathing. ABDOMEN: Soft, non-distended. BACK: Paravertebral spasming is present, left hand side greater than right hand side. Extension, compression, direct palpation along the posterior elements aggravate the patient's pain concordant with facet arthropathy, lumbar spondylosis. EXTREMITIES: No pedal edema is noted. MUSCULOSKELETAL: Intact in the lower extremities at 4+/5 bilaterally. NEUROLOGICALLY: No radicular symptomatology. PSYCHIATRICALLY: Affect is appropriate. The patient maintains a very jocular manner. IMPRESSION: Chronic low back pain, lumbar degenerative disc disease, lumbar spondylosis. PLAN: We will schedule the patient for a diagnostic lumbar medial branch block at the level of L2-3 and L4-5. Given that the patient is taking Celebrex 100 mg b.i.d., we will maintain. [facility] 05-08-2022 Consult note Note Date/Time May 08, 2022 11:45am [facility] [address] [place] [address] Cardiology Consult Note Signed Patient: Macario Ash MR#: [id number] : 1935 Acct:[id number] Age/Sex: 87 / M Adm Date: 2 Loc: 3T Room: [address] [place] [address] Type : ADM INOo Attending Dr: Lidia Borja MD Copies to: MD Lidia Roberto MD W Scott Sheldon, DO~ Cardiology HPI History of Present Illness Consult Date: 05/08/22 Reason for Consult: Shortness of breath/dyspnea HPI: Mr. Ash is a 87 year old male seen in cardiology consultation at the request ofthe hospitalist for persistent dyspnea/shortness of breath since initiating Brilinta following his recent inferior STEMI. Patient also complains of waking up in the middle of the night x2 episodes last evening suddenly, disoriented, dyspneic; with a suspected history of obstructive sleep apnea that he has not had any investigation for as of yet. Patient is alert oriented, very active lal currently. By report from his granddaughter, she relates that he probably does have sleep apnea clinically. Patient has recent history of inferior STEMI with revascularization of the RCA performed by Dr. Kel Sparrow in my absence with mild left ventricular dysfunction and no other significant disease. He has been seen by myself in October of this year for episodes of drop attacks/syncope which have been worked up by vascular imaging, and arrhythmia monitoring with a loop recorder. 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 There is Holter monitor revealing tachyarrhythmic episodes. He does follow with electrophysiology at [facility] and had a loop recorder placed so far no reports of A. fib or tachycardia or bradycardia arrhythmias have been noted but will recheck his loop recorder today There have been complaints of heart rates as low as 40, his primary care physician adjusted his metoprolol down to 25 mg, prescribed furosemide 20 mg forlower extremity edema and dyspnea. Impression/recommendations: There is no evidence of heart failure or acute coronary syndrome currently. Clearly his dyspnea is related to Brilinta side effect and will proceed to change this out for clopidogrel with a loading dose. We will have pacemaker clinic evaluate his loop recorder to assess for A. fib orbradycardia arrhythmias. He is otherwise on appropriate guideline directed medical therapies and would continue current therapies other than the above initiation of clopidogrel and discontinuation of Brilinta. He can be dischargedtoday will arrange follow-up with cardiology in 2 weeks with myself Review of Systems Review of Systems All other systems reviewed & are negative unless noted below or in HPI Constitutional Constitutional: Reports as per HPI, Reports snoring and Reports stops breathing during sleep ENT Ears, Nose, Mouth, and Throat: Reports system reviewed and no additional complaints, except as documented Cardiovascular Cardiovascular: Reports system reviewed and no additional complaints, except as documented, Denies chest pain, Denies chest pain at rest, Denies chest pain withactivity, Reports dyspnea and Reports leg edema Respiratory Respiratory: Reports as per HPI Gastrointestinal Gastrointestinal: Reports system reviewed and no additional complaints, except as documented Genitourinary Genitourinary: Reports system reviewed and no additional complaints, except as documented Musculoskeletal Musculoskeletal: Reports system reviewed and no additional complaints, except asdocumented Integumentary/Breasts Skin/Breast: Reports system reviewed and no additional complaints, except as documented Neurologic Neurologic: Reports system reviewed and no additional complaints, except as documented Psychiatric Psychiatric: Reports system reviewed and no additional complaints, except as documented PMFSH Vaccinated for COVID-19?: Yes Medical History (Updated 05/08/22 @ 11:45 by Rowena Swanson DO) Diverticulosis History of cardiac monitoring Hypertension Normal colonoscopy NSTEMI (non-ST elevated myocardial infarction) Palpitation Peptic ulcer Spinal stenosis STEMI (ST elevation myocardial infarction) Syncope Family History Other No significant family history Social History Smoking Status: Former smoker Tobacco Type: cigarettes Substance Use Type: None Meds Medications and Allergies Allergies bee venom protein (honey bee) Allergy (Verified 05/07/22 11:09) Swelling of Lip/Tongue/Throat Penicillins Allergy (Verified 05/07/22 11:09) Unknown Reaction Home Medications amlodipine 5 mg tablet 10 mg PO DAILY 05/03/19 [History Confirmed 05/07/22] celecoxib 200 mg capsule (Celebrex) 200 mg PO DAILY 05/03/19 [History Confirmed 05/07/22] cyanocobalamin (vitamin B-12) 1,000 mcg/mL injection kit 1,000 mcg IM QMONTH 05/03/19 [History Confirmed 05/07/22] diclofenac sodium 1 % topical gel 1 appful topical QID PRN Pain 05/03/19 [History Confirmed 05/07/22] lisinopril 40 mg tablet 40 mg PO DAILY 05/03/19 [History Confirmed 05/07/22] omeprazole magnesium 20 mg tablet,delayed release (Prilosec OTC) 20 mg PO DAILY 05/03/19 [History Confirmed 05/07/22] Lactobacillus acidophilus 20 billion cell capsule (Florajen Acidophilus) 100 mg PO DAILY 04/11/22 [History Confirmed 05/07/22] cetirizine 10 mg tablet (Zyrtec) 10 mg PO DAILY 04/11/22 [History Confirmed 05/07/22] econazole 1 % cream and triamcinolone 0.1 % ointment, topical pack See Rx Instructions .Route .COMPLEX 04/11/22 [History Confirmed 05/07/22] aspirin 81 mg chewable tablet (Children's Aspirin) 81 mg PO DAILY #30 tabs 04/12/22 [Rx Confirmed 05/07/22] atorvastatin 40 mg tablet 40 mg PO QPM #30 tabs 04/12/22 [Rx Confirmed 05/07/22] ticagrelor 90 mg tablet (Brilinta) 90 mg PO BID #60 tabs 04/12/22 [Rx Confirmed 05/07/22] metoprolol succinate 50 mg tablet,extended release 24 hr (Toprol XL) 25 mg PO DAILY 05/07/22 [History Confirmed 05/07/22] clopidogrel 75 mg tablet 75 mg PO DAILY 30 days #30 tabs 05/08/22 [Rx] furosemide 20 mg tablet 20 mg PO DAILY.8A 30 days #30 tabs 05/08/22 [Rx] Exam Physical Exam Vital Signs: Temp Pulse Resp BP Pulse Ox O2 Del Method 98.2 F 65 18 139/83 97 Room Air 05/08/22 11:21 05/08/22 11:05/08/22 11:05/08/22 11:21 05/08/22 11:05/08/22 11:21 Const General: cooperative, healthy appearing, comfortable and no acute distress Nutritional Appearance: obese Orientation: alert, awake and oriented x3 HEENT Head: normal to inspection Ears: hearing grossly normal bilaterally Eyes General: appearance normal, both eyes and all related structures Neck Neck: normal visual inspection Chest Chest palpation & inspection: normal inspection of the chest Resp Effort & Inspection: normal respiratory effort Auscultation: clear to auscultation bilaterally Cardio Palpation: normal PMI Rate: regular rate Rhythm: regular rhythm Heart Sounds: S1 normal, S2 normal and no murmurs Pulses: radial pulses present GI Inspection: obesity Palpation: soft Skin General: no rashes or lesions noted Neuro General: patient alert, patient awake and patient oriented x3 Cognition: normal cognition Speech: speech normal Extrem General: edema (Minimal bilateral edema) Laterality: bilaterally Psych Appearance: grossly normal Results Labs CBC & CMP: 05/07/22 11:24 05/07/22 11:24 Lab results: Cardiac Enzymes 05/07/22 05/07/22 Range/Units 11:24 11:24 Total Creatine Kinase 90 (22-269) U/L CK-MB (CK-2) 2.9 (0.6-6.3) ng/mL CK-MB (CK-2) Rel Index 3.2 H (0.00-2.50) % B-Natriuretic Peptide 106.0 H (5-100) pg/mL CBC 05/07/22 Range/Units 11:24 RBC 4.31 (3.90-5.60) x10E6/uL Hgb 13.8 (13.0-17.0) g/dL Hct 40.3 (38.8-50.0) % Plt Count 178 (150-450) x10E3/uL Neut # (Auto) 4.6 (1.8-7.7) x10E3/uL Lymph # (Auto) 1.6 (1.00-4.8) x10E3/uL [place] # (Auto) 0.6 (0.0-0.8) x10E3/uL Eos # (Auto) 0.1 (0.0-0.45) x10E3/uL Baso # (Auto) 0.1 (0.0-0.2) x10E3/uL Comprehensive Metabolic Panel 05/07/22 Range/Units 11:24 Sodium 133 L (136-146) mmol/L Potassium 3.9 (3.5-5.1) mmol/L Chloride 102 (95-114) mmol/L Carbon Dioxide 22.2 (22.0-30.0) mmol/L BUN 14 (9-23) mg/dL Creatinine 1.17 (0.64-1.27) mg/dL Glucose 118 H (70-100) mg/dL Calcium 9.5 (8.2-10.2) mg/dL Intake and Output 05/07/22 05/08/22 05/08/22 23:59 07:59 15:59 Intake Total 400 / 400 200 / 200 Output Total 450 / 450 Balance 400 / 200 -250 / -250 Intake: Oral 400 / 400 200 / 200 Output: Urine 450 / 450 Other: # Unmeasured Voids 6 # Bowel Movements 0 0 Weight 99 kg Date of Last Bowel Movement 05/07/22 05/07/22 Patient Weight 05/08/22 23:59 Weight 99 kg Lab 05/07/22 11:24 PT 13.3 H INR 1.2 APTT 30.8 EKG Interpretations EKG EKG results cardiology: sinus rhythm Blocks, axis, hypertrophy, ST abn Repolarization changes or abnormalities: nonspecific abnormality, ST segment, and/or T wave (Evolutionary T wave changes from recent inferior STEMI) A&P - Cardiology (1) Stented coronary artery: (2) Hypertension: Code(s): I10 - Essential (primary) hypertension (3) Hyperlipidemia: Code(s): E78.5 - Hyperlipidemia, unspecified (4) Syncope: Code(s): R55 - Syncope and collapse (5) ASHD (arteriosclerotic heart disease): Code(s): I25.10 - Atherosclerotic heart disease of [place] coronary artery without angina pectoris (6) Recent inferior myocardial infarction: Documented By: Rowena Swanson DO 05/08/22 1134 Signed By: <Electronically signed by Rowena Swanson DO> 05/08/22 1145 [facility] Work Phone: 1(363) 508-770507-21-2022 History and physical note Author Lidia Borja [facility] May 07, 2022 2:49pm Note Date/Time May 07, 2022 2:43 pm [facility] [address] [place] [address] Hospitalist H&P Signed Patient: Macario Ash MR#: [id number] : 1935 Acct:[id number] Age/Sex: 87 / M Adm Date: 2 Loc: 3T Room: [address] [place] [address] Type : ADM IN Attending Dr: Lidia Borja MD Copies to: MD Lidia Roberto MD~ HPI DATE OF EXAMINATION: 05/07/22 CHIEF COMPLAINT: Shortness of breath and generalized weakness. HISTORY OF PRESENT ILLNESS: Patient is a pleasant 87-year-old male with past medical history of hypertension, peptic ulcer with recent hospitalization for acute inferior ST elevated OK on 04/11/2022 for which he underwent cardiac catheterization with 2 stent placement to RCA. His EF was found to be 40 to 45%. He also developed Mobitz type II AV block which improved after revascularization. Patient was discharged aspirin with Brilinta and metoprolol. Patient mentioned initially after getting discharged he felt weak gradually he started getting his strength back almost back to his normal but again he developed weakness with shortness ofbreath. He gets short of breath on minimal exertion along with signs of orthopnea and noticed pedal edema. He was started on Lasix by his primary care provider with improvement in leg swelling but continues to have shortness of breath. He is having difficulty to lie flat due to his symptoms presented to the emergency. Earlier today he felt nauseous and belching which was a similar feeling he had on his previous OK which made him come to the emergency room. Inthe ER labs did not show any significant abnormality with EKG showing inverted Twaves on inferior lateral leads. Paste was applied without any relief. During my evaluation he denies having chest pain or shortness of breath while sitting in the bed. Patient will be kept in the hospital to further evaluate. He did mention feeling anxious as well. Review of Systems Review of Systems All other systems reviewed & are negative unless noted below or in HPI [facility] Vaccinated for COVID-19?: Yes Medical History (Updated 05/07/22 @ 14:47 by Lidia Borja MD) Diverticulosis History of cardiac monitoring Hypertension Normal colonoscopy NSTEMI (non-ST elevated myocardial infarction) Palpitation Peptic ulcer Spinal stenosis STEMI (ST elevation myocardial infarction) Syncope Family History Other No significant family history Social History Smoking Status: Former smoker Tobacco Type: cigarettes Substance Use Type: None Meds Medications and Allergies Allergies bee venom protein (honey bee) Allergy (Verified 05/07/22 11:09) Swelling of Lip/Tongue/Throat Penicillins Allergy (Verified 05/07/22 11:09) Unknown Reaction Home Medications amlodipine 5 mg tablet 10 mg PO DAILY 05/03/19 [History Confirmed 05/07/22] celecoxib 200 mg capsule (Celebrex) 200 mg PO DAILY 05/03/19 [History Confirmed 05/07/22] cyanocobalamin (vitamin B-12) 1,000 mcg/mL injection kit 1,000 mcg IM QMONTH 05/03/19 [History Confirmed 05/07/22] diclofenac sodium 1 % topical gel 1 appful topical QID PRN Pain 05/03/19 [History Confirmed 05/07/22] lisinopril 40 mg tablet 40 mg PO DAILY 05/03/19 [History Confirmed 05/07/22] omeprazole magnesium 20 mg tablet,delayed release (Prilosec OTC) 20 mg PO DAILY 05/03/19 [History Confirmed 05/07/22] Lactobacillus acidophilus 20 billion cell capsule (Florajen Acidophilus) 100 mg PO DAILY 04/11/22 [History Confirmed 05/07/22] cetirizine 10 mg tablet (Zyrtec) 10 mg PO DAILY 04/11/22 [History Confirmed 05/07/22] econazole 1 % cream and triamcinolone 0.1 % ointment, topical pack See Rx Instructions .Route .COMPLEX 04/11/22 [History Confirmed 05/07/22] aspirin 81 mg chewable tablet (Children's Aspirin) 81 mg PO DAILY #30 tabs 04/12/22 [Rx Confirmed 05/07/22] atorvastatin 40 mg tablet 40 mg PO QPM #30 tabs 04/12/22 [Rx Confirmed 05/07/22] ticagrelor 90 mg tablet (Brilinta) 90 mg PO BID #60 tabs 04/12/22 [Rx Confirmed 05/07/22] metoprolol succinate 50 mg tablet,extended release 24 hr (Toprol XL) 25 mg PO DAILY 05/07/22 [History Confirmed 05/07/22] Exam Physical Exam Vital Signs: Temp Pulse Resp BP Pulse Ox O2 Del Method 98.5 F 76 22 132/73 96 Room Air 05/07/22 11:09 05/07/22 13:30 05/07/22 13:30 05/07/22 13:30 05/07/22 13:30 05/07/22 14:08 Const General: cooperative Orientation: alert, awake and oriented x3 HEENT Head: normal to inspection, no palpable skull fracture, normocephalic and atraumatic Ears: hearing grossly normal bilaterally Nose: external nose normal Face and sinus: normal facial exam Eyes Pupils: PERRL EOM: EOM intact bilaterally and No nystagmus Neck Neck: normal visual inspection and full ROM Resp Effort & Inspection: normal respiratory effort and able to speak in complete sentences Auscultation: no rales, no rhonchi and no wheezes Cardio Rate: regular rate Rhythm: regular rhythm Heart Sounds: S1 normal and S2 normal GI Palpation: soft, not firm, no guarding and nontender Auscultation: normal bowel sounds Musc Cervical Spine: normal cervical lordosis and cervical ROM normal Neuro General: patient alert, patient awake, patient oriented x3, moves all extremities and no focal motor deficits Cranial Nerves: CN's II-XII intact bilaterally Cognition: normal cognition Speech: speech normal Motor: muscle tone normal throughout and strength 5/5 throughout Sensory Exam: no sensory deficits noted Extrem General: no calf tenderness and edema Laterality: bilaterally Severity: 1+ Psych Appearance: grossly normal Results Lab Results Labs: Laboratory Last Values Corrected WBC 7.1 X10E3/uL (4.1-10.5) 05/07/22 11:24 Uncorrected WBC Count 7.1 x10E3/uL (4.5-11.0) 05/07/22 11:24 RBC 4.31 x10E6/uL (3.90-5.60) 05/07/22 11:24 Hgb 13.8 g/dL (13.0-17.0) 05/07/22 11:24 Hct 40.3 % (38.8-50.0) 05/07/22 11:24 MCV 93.5 fl (83.5-101) 05/07/22 11:24 MCH 32.0 pg (27.5-35.2) 05/07/22 11:24 MCHC 34.2 g/dL (32.5-35.6) 05/07/22 11:24 RDW 13.5 % (12.0-14.8) 05/07/22 11:24 Plt Count 178 x10E3/uL (150-450) 05/07/22 11:24 MPV 9.5 fl (6.6-10.1) 05/07/22 11:24 Neut % (Auto) 65.4 % (.) 05/07/22 11:24 Lymph % (Auto) 23.2 % (.) 05/07/22 11:24 [place] % (Auto) 8.6 % (.) 05/07/22 11:24 Eos % (Auto) 1.3 % (.) 05/07/22 11:24 Baso % (Auto) 1.5 % (.) 05/07/22 11:24 Neut # (Auto) 4.6 x10E3/uL (1.8-7.7) 05/07/22 11:24 Lymph # (Auto) 1.6 x10E3/uL (1.00-4.8) 05/07/22 11:24 [place] # (Auto) 0.6 x10E3/uL (0.0-0.8) 05/07/22 11:24 Eos # (Auto) 0.1 x10E3/uL (0.0-0.45) 05/07/22 11:24 Baso # (Auto) 0.1 x10E3/uL (0.0-0.2) 05/07/22 11:24 Nucleated RBC % (auto) 0.1 % (0-0.5) 05/07/22 11:24 PT 13.3 Seconds (9.0-12.9) H 05/07/22 11:24 INR 1.2 05/07/22 11:24 APTT 30.8 Seconds (25.1-36.5) 05/07/22 11:24 PHA Creatinine Clear 52.05 05/07/22 11:24 Sodium 133 mmol/L (136-146) L 05/07/22 11:24 Potassium 3.9 mmol/L (3.5-5.1) 05/07/22 11:24 Chloride 102 mmol/L (95-114) 05/07/22 11:24 Carbon Dioxide 22.2 mmol/L (22.0-30.0) 05/07/22 11:24 BUN 14 mg/dL (9-23) 05/07/22 11:24 Creatinine 1.17 mg/dL (0.64-1.27) 05/07/22 11:24 Est GFR ( Amer) > 60 mL/Min 05/07/22 11:24 Est GFR (Non-Af Amer) 59 mL/Min 05/07/22 11:24 Glucose 118 mg/dL (70-100) H 05/07/22 11:24 Calcium 9.5 mg/dL (8.2-10.2) 05/07/22 11:24 Total Creatine Kinase 90 U/L (22-269) 05/07/22 11:24 CK-MB (CK-2) 2.9 ng/mL (0.6-6.3) 05/07/22 11:24 CK-MB (CK-2) Rel Index 3.2 % (0.00-2.50) H 05/07/22 11:24 Troponin I High Sens 12 pg/mL (0-20) 05/07/22 11:24 B-Natriuretic Peptide 106.0 pg/mL (5-100) H 05/07/22 11:24 COVID-19 PCR Interp N/A 05/07/22 11:59 SARS Antigen (LFIA) Negative (Negative) 05/07/22 11:59 Microbiology Results Micro: Microbiology - Results from entire visit 05/07/22 11:59 Nasal SARS Antigen (LFIA) - Final A&P - Hospitalist Assessment/Plan (1) Stented coronary artery: (2) Hyperlipidemia: (3) Hypertension: (4) Shortness of breath: Plan Patient presented to the emergency room with complaint of shortness of breath onminimal exertion along with generalized weakness. Symptoms could be related to Brilinta. He did have cardiomyopathy and mentioned increased leg swelling whichis improved after starting Lasix. BNP is only 106. I will continue oral diuresis. X-ray negative for acute abnormality and currently on room air. Willcheck venous duplex lower extremity and consult cardiology to further evaluate. Continue dual antiplatelet and defer to cardiology to switch to other antiplatelet from Brilinta. Continue statin, amlodipine, lisinopril and metoprolol. DVT prophylaxis. Documented By: Lidia Borja MD 05/07/22 1430 Signed By: <Electronically signed by Lidia Borja MD> 05/07/22 0300 [facility] Work Phone: 1([phone]) 191-436606-17-2022 Evaluation note* Encounter Date Diagnosis Assessment Notes Treatment Notes Treatment Clinical Notes Mar, Abrasion of left upper extremity, initial encounter (ICD-10 - S40.812A) Discussed diagnosis with patient. Wound care provided today in office. Keep area clean, dry and bandaged with non-adherent dressing for the first 48 hours, avoid getting wet or dirty. After 48 hours clean area with clean soapy water, no not soak or scrub wound, do not use hydrogen peroxide or alcohol, may keep open to air, cover as needed if chance of irritation, getting dirty, or draining. Apply rx of Mupirocin as directed. Keep extremity elevated when sitting or lying down for the next 2-3 days. May use Tylenol/Motrin for discomfort. OK to use ice, ensure barrier between skin. Follow up with PCP as needed. Immediate evaluation in ER for warning signs/symptoms as discussed. Patient verbalizes understanding and is agreeable to treatment plan Mar, Other Abrasion home care material was printed [employer] Other 04-22-2022 NoteHOSPITAL REGULATIONS: All Positive and Important Negative Findings Shall Be Recorded Date of Consultation: 02/05/2022 Attending Physician: Moon Harper M.D. Consulting Physician: Bayron Rodriguez M.D. CHIEF COMPLAINT: Low back and leg pain. HISTORY OF PRESENT ILLNESS: This is an 86 year old male seen for a chief complaint of low back and leg pain. He rates his symptoms currently as a 2/10. At his last visit he underwent a lumbar epidural steroid injection. He reports over 80% relief in terms of improved pain and improved function. He is back to functioning at a normal level. He is very happy with the results. He denies new neurologic symptoms or issues with bladder or bowel control. PAST MEDICAL, PSYCHOSOCIAL, FAMILY HISTORY, ALONG WITH MEDICATIONS AND ALLERGIES is available and was reviewed. PHYSICAL EXAMINATION: General: He is a pleasant white male. Vital signs: Vital signs including blood pressure, heart rate and respirations are stable. Head: Head is normocephalic and external ears are normal. Neck: Neck is supple with no lesions. Cardiovascular: No signs of poor perfusion. No peripheral edema. Lungs: Breathing is unlabored. There is no wheezing present. Abdomen: Abdomen is soft and non-distended. Back: There is no lumbar tenderness. Musculoskeletal: Strength is 5/5. Muscle tone is normal. Neurologic: Sensation is intact. Reflexes are diminished but symmetric. Psychiatric: Affect is appropriate and he is alert and oriented. ASSESSMENT:This is an 86 year old male seen for a chief complaint of low back and left leg pain. His signs and symptoms are due to lumbosacral radiculopathy, lumbar stenosis with neurogenic claudication. He has had almost complete symptom relief following the lumbar epidural injection and is back to functioning at a normal level. PLAN:I addressed options with him and since he is doing very well at this time we will hold off on further interventional treatments but we could repeat a lumbar epidural steroid injection in the future if or when needed. With his advanced age he is not a good candidate for surgery and does not want surgery anyway. I advised him with regard to his home exercises and he can continue to use Tylenoland NSAIDs as needed. I will see him for follow up on a p.r.n. basis. Bayron Rodriguez M.D. lr Dictated: 02/05/2022 [id number] Transcribed: 02/06/2022 cc:Moon Harper M.D.Uk HealthcareComment on above:Result Comment: Electronically Signed By: Jennifer GAUTAM, Bayron\.br\Date and Time Signed: 02/06/22 15:57 [id number] History of Present illness Narrative* 86-year-old male with history of hypertension, atherosclerosis with recent episode of syncope beingreferred from primary care physician and vascular/chiller hand for further evaluation management of syncope and dizziness. At the last clinic visit pt was started on low dose BB. * Patient underwent EP study January 09, 2022 which did not show any inducible SVT or significant ventricular tachycardia. ABC parameters were all within normal limits and patient underwent a ILR implantation to assess for ongoing etiologies of his near syncope/syncope. * Since the procedure patient reports he had a few episodes of near syncope but no dom syncope. He denies any chest pain, shortness of breath, palpitations. Overall he does report that the episodes have gotten further apart and also smaller in duration. Patient reports he has been feeling fairly well. * A 12 point ROS was done, and negative unless otherwise stated in the HPI. * Dizziness HPI: * Patient states that he had an episode about 3 weeks ago where he had been in his usual state of health. While he was driving he felt very dizzy had some tunnel vision and had pulled over and just felt extremely weak. He denies any dom loss of consciousness. Since then he states he was having episodes of dizziness mostly with activity never with loss of consciousness. His initial episode while driving the car lasted for about 10 to 15 minutes. Subsequent episodes were about 5 to 10 minutes in duration. He denies any dom syncope, chest pain, shortness of breath, palpitations with any of these episodes. He does note 1 episode woke him up at 4 in the morning where he just felt something was wrong and then it completely resolved in 5 minutes. Patient's primary care did his initial evaluation appropriately with a 7-day pvc monitor and an echocardiogram. Patient also underwent a carotid ultrasound. * Patient today in the office states that over the last 5 days he has had no episodes he had noticed an decreasing frequency in his symptoms since his original episode. 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 Patient states he quit tobacco use about 37 years ago. He also quit alcohol use 43 years ago. No drug use. 2 cups of coffee a day. No significant family history of heart disease. Of note patient was previously seen by a neurologist who started the patient on Plavix due to evidence of some mild carotid disease on vascular ultrasound however subsequently he was seen by a vascular medicine specialist and Plavix were discontinued however statin has been kept. TX-Olpruhjcdb-Qahozw 100 DO Work Phone: 1([phone]) 201-891103-25-2022 NotePre-procedure Verification and Time Out: Pre-Procedure Verification and Time Out: Procedure Locationprocedure area [facility] - Pre-procedure Verificationcompleted TIME OUT - Final Verificationcompleted immediately prior to procedure start DEBRIEFcompleted General Information: Anesthesia Critical Care: Non-Anesthesia Date/Time of Procedure: 09-Jan-2022 10:00 Post-Procedure Diagnosis: s/p ILR Implant Procedure Name: Implantable loop recorder implantation Findings: grossly normal anatomy Procedure performed by: ia Outbound Sales Executive(s): none Estimated Blood Loss (mL): none Specimen: no Indication(s): Recurrent near syncope, syncope, palpitations Informed Consent: written consent obtained, verbal consent obtained Procedure Details: Procedure Details: Pt was prepped and draped in sterile fashion. 1% lidocaine was given in the 4th intercostal space. Once anesthesized, implantable LINQ recorder was placed without issue. Steri-strips with glue placed on site with dressing over incision. Pt tolerated the procedure well and was transferred to recovery with plan to discharge. Device was paired to home use. Serial #: [id number] R wave: 0.37 mV P wave: Present Summary: - s/p ILR Implantation Patient Instructions: - No showering for 24hrs - Remove Bandage in 48 hours - Avoid submerging in water, swimming bath tubs etc for 2-3 days - Allow steristrips underneath to fall off naturally. - Please call our office ([phone]) if you notice any discharge or swelling around incision or fever. Tolerance: good Complications: None Electronic Signatures: Addy Alas) (Signed 09-Jan-2022 11:39) Authored: Pre-procedure Verification and Time Out, General Information, Procedure Details, Note Completion Last Updated: 09-Jan-2022 11:39 by Addy Alas)[facility] 01-09-2022 NotePre-procedure Verification and Time Out: Pre-Procedure Verification and Time Out: Procedure [facility] - Pre-procedure Verificationcompleted TIME OUT - Final Verificationcompleted immediately prior to procedure start DEBRIEFcompleted General Information: Anesthesia Critical Care: Non-Anesthesia Date/Time of Procedure: 09-Jan-2022 08:00 Post-Procedure Diagnosis: Sinus rhythm, history of syncope Procedure Name: Electrophysiological study, 3D Mapping, Arrythmia Induction attempted with isoproterenol, LA recording and pacing Findings: grossly normal anatomy Procedure performed by: ia Outbound Sales Executive(s): none Estimated Blood Loss (mL): none Specimen: no Indication(s): Syncope, palpitations Informed Consent: written consent obtained Procedure Details: Procedure Details: The patient was prepped and draped in the usual sterile fashion. The right and left femoral veins were accessed using a modified seldinger technique using a 18G needle, under ultrasound guidance. Introduced sheaths were then used, along the access points, 7F and 6F access was obtained along the left femoral vein and 6F x2 access was obtained along the right femoral vein. 8000units of IV heparin was then given. Under fluoroscopic and intra-cardiac echocardiographic guidance multiple electrode and mapping catheters were then placed along RA, RV, CS and HIS positions. Real-time 3-D intra-cardiac electro-anatomic mapping was also performed. Intra-cardiac echocardiogram was used for the entire procedure, and was used to delineate important cardiac structure during the study. Baseline measurements were done. AH 90ms HV 61ms QRS 67ms QT 397ms PA 200ms RR 802ms Atrial activation was noted to be high to low on the right atrium and concentric activation - proximal to distal on the CS. A complete electrophysiological study using the multi-electrode and mapping catheters was then performed. - AH Jump: None observed - Baseline: - AV WB 440 ms; AVN ERP 600/360 - VA Conduction: Midline earliest at HIS, VA WB 390. - Isoproterenol @ 2mcg/min: - AV WB 350ms; AVN ERP 500/280 - VA Conduction: Midline, earliest A at HIS, VA WB 330 - Response to isoproterenol was brisk with increase in sinus activation. Atrial pacing from HRA, His and CS was done to try induced SVT but no SVT was induced. - Para-hisian pacing was attempted but there was local atrial capture and therefore results were uninterpretable - His-syncronous PVC was also used and it did not show presence of septal accessory pathway During isoproterenol infusion and its washout atrial burst pacing and atrial extrastimuli were able to produce a single echo but no sustained arrhythmia. There were short runs of nonsustained VT but nothing sustained and most likely secondary to ventricular irritability from the RV catheter. Since there was only a single echo that was reproducible and no AH jump and certainly no sustained atrial arrhythmia I did not elect to proceed with slow pathway modification. Based on my previous conversations with the patient and his family at this point I elected to finish the EP study. Plan for a implantable loop recorder. All catheters and sheaths were removed and vascular access sites were closed with Vascade MVP. The patient was brought to the recovery area/room. Conclusions: -Negative electrophysiological study - Hemostasis and Vascular closure along bilateral femoral vein access achieved via Vascade MVP Recommendations - Bed Rest for 3 hours - Can resume rest of home medications - We will give dose of lisinopril 40 mg in holding Patient Instructions: - No alcohol or making legal decisions for 24 hours. - Avoid Driving for 2-3 days - Remove band-aid/tegaderm in 1 day. - No heavy lifting, strenuous exercise for 1 week - Please call our office if you notice any groin discharge or swelling or fever. - Follow-up with Dr. Alas within 4 weeks or as scheduled. Tolerance: good Complications: None Electronic Signatures: Addy Alas) (Signed 09-Jan-2022 11:33) Authored: Pre-procedure Verification and Time Out, General Information, Procedure Details, Note Completion Last Updated: 09-Jan-2022 11:33 by Addy Alas)[facility] 01-09-2022 NoteHistory & Physical Reviewed: I have reviewed the History and Physical dated: 19-Dec-2021 History and Physical reviewed and relevant findings noted. Patient examined to review pertinent physical findings.: No significant changes Home Medications Reviewed: no changes noted Allergies Reviewed: no changes noted Airway/Sedation Assessment: Assmentment by AnesthesiaSee anesthesia airway/sedation assessment. Emotional Statuscalm Neurologicalert & oriented x 3 Cardiovascularrhythm & rate regular GI/GUsoft, nontender Mouth Opening OKyes Neck Flexibility OKyes Loose Teethno Oropharyngeal ClassificationClass III ASA PS ClassificationASA IV ERAS (Enhanced Recovery After Surgery): ERAS Patient: no Consent: COVID-19 Consent: COVID-19 Risk ConsentSurgeon has reviewed da silva risks related to the risk of holly COVID-19 and if they contract COVID-19 what the risks are. Assessment/Plan: Assessment and Plan plan for EPS +/- SVT ablation Electronic Signatures: Addy Alas) (Signed 09-Jan-2022 08:16) Authored: History & Physical Reviewed, Airway/Sedation, ERAS, Consent, Assessment/Plan, Note Completion Last Updated: 09-Jan-2022 08:16 by Addy Alas)[facility] 01-07-2022 [id number]:[id number]03-11-2022 NoteHOSPITAL REGULATIONS: All Positive and Important Negative Findings Shall Be Recorded Date of Consultation: 12/25/2021 Attending Physician: Moon Harper M.D. Consulting Physician: Bayron Rodriguez M.D. CHIEF COMPLAINT: Low back, left leg pain. HISTORY OF PRESENT ILLNESS: This is an 86-year-old male seen for a chief complaint of low back and left leg pain. He rates his symptoms as an 8/10. I had last seen him four months ago at which time he underwent a lumbar epidural steroid injection. He reports 90% relief up until recently. He states his symptoms are returning in the exact same manner. He has limited pain when he sits at which time it is only about a 3/10 but when he stands and walks, the pain will get much more severe. He has been using Tylenol and anti- inflammatories which help moderately. He does not want to go on anything that could be habit-forming. He has maintained a home exercise program which helps modestly. He does not want to have surgery unless there is no other choice. He is profoundly claustrophobic. He denies new neurologic symptoms or issues with bladder or bowel control. His past medical, social, family history along with medications and allergies is available and was reviewed. PHYSICAL EXAMINATION: General: He is a pleasant white male. Vital signs including blood pressure, heart rate and respirations are stable. Head: Head is normocephalic and external ears are normal. Neck: Neck is supple with no lesions. Cardiovascular: No signs of poor perfusion, no peripheral edema. Respiratory: Breathing is unlabored. There is no wheezing present. Abdomen: Abdomen is soft, nondistended. Back: There is no lumbar tenderness. Musculoskeletal: Strength is 5/5. Muscle tone is normal. Neurologic: Sensation is intact throughout. His reflexes are diminished but symmetric. Psychiatric: Affect is appropriate. He is alert and oriented. ASSESSMENT: This is an 86-year-old male seen for a chief complaint of low back and leg pain. His signs and symptoms are consistent with lumbosacral radiculopathy and lumbar stenosis with neurogenic claudication. I reviewed his lumbar x-ray from today which is notable for a mild levoscoliosis centered at L2-L3 in addition to multilevel degenerative disc disease most significantly at L2-L3 and a grade 1 anterolisthesis of L4 on L5. PLAN: I addressed options with him and since he has had significant symptom relief in terms of reduced pain and improved function with the previous injections and he has no desire for surgery and with his age is not a good candidate for surgery, we will proceed with a lumbar epidural steroid injection under fluoroscopy at his next visit. I went over the pros and cons of this plan and he was in agreement to proceed. I will see him for followup four weeks afterward for a repeat evaluation. Bayron Rodriguez M.D. Dictated: 12/25/2021 [id number] Transcribed: 12/26/2021 cc:Moon Harper M.D.[facility] on above:Result Comment: Electronically Signed By: Jennifer GAUTAM, Bayron\.br\Date and Time Signed: 12/26/21 16:18 [id number] History of Present illness Narrative* 86-year-old male with history of hypertension, atherosclerosis with recent episode of syncope beingreferred from primary care physician and vascular/chiller hand for further evaluation management of syncope and dizziness. Patient was seen by me last week and at that time he reportedimprovement in his symptoms. Instruction if patient had any recurrent episodes would see him soonerand start beta-blockers. Unfortunately patient was doing well up until 2 days ago when he had another episode of near syncope while driving. Patient states that the episode lasted less than 30 seconds and immediately he checked his blood pressure and heart rate which were both normal. He denies anyfrank syncope. * Dizziness HPI: * Patient states that he had an episode about 3 weeks ago where he had been in his usual state of health. While he was driving he felt very dizzy had some tunnel vision and had pulled over and just felt extremely weak. He denies any dom loss of consciousness. Since then he states he was having episodes of dizziness mostly with activity never with loss of consciousness. His initial episode while driving the car lasted for about 10 to 15 minutes. Subsequent episodes were about 5 to 10 minutes in duration. He denies any dom syncope, chest pain, shortness of breath, palpitations with any of these episodes. He does note 1 episode woke him up at 4 in the morning where he just felt something was wrong and then it completely resolved in 5 minutes. Patient's primary care did his initial evaluation appropriately with a 7-day pvc monitor and an echocardiogram. Patient also underwent a carotid ultrasound. * Patient today in the office states that over the last 5 days he has had no episodes he had noticed an decreasing frequency in his symptoms since his original episode. 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 Patient states he quit tobacco use about 37 years ago. He also quit alcohol use 43 years ago. No drug use. 2 cups of coffee a day. No significant family history of heart disease. Of note patient was previously seen by a neurologist who started the patient on Plavix due to evidence of some mild carotid disease on vascular ultrasound however subsequently he was seen by a vascular medicine specialist and Plavix were discontinued however statin has been kept. MF-Rdexscgfzf-Vqfspe 100 DO Work Phone: [phone]) 898-451712-28-2021 History of Present illness Narrative* 86-year-old male with history of hypertension, atherosclerosis with recent episode of syncope beingreferred from primary care physician and vascular/chiller hand for further evaluation management of syncope and dizziness. * Patient states that he had an episode about 3 weeks ago where he had been in his usual state of health. While he was driving he felt very dizzy had some tunnel vision and had pulled over and just felt extremely weak. He denies any dom loss of consciousness. Since then he states he was having episodes of dizziness mostly with activity never with loss of consciousness. His initial episode while driving the car lasted for about 10 to 15 minutes. Subsequent episodes were about 5 to 10 minutes in duration. He denies any dom syncope, chest pain, shortness of breath, palpitations with any of these episodes. He does note 1 episode woke him up at 4 in the morning where he just felt something was wrong and then it completely resolved in 5 minutes. Patient's primary care did his initial evaluation appropriately with a 7-day pvc monitor and an echocardiogram. Patient also underwent a carotid ultrasound. * Patient today in the office states that over the last 5 days he has had no episodes he had noticed an decreasing frequency in his symptoms since his original episode. 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 Patient states he quit tobacco use about 37 years ago. He also quit alcohol use 43 years ago. No drug use. 2 cups of coffee a day. No significant family history of heart disease. Of note patient was previously seen by a neurologist who started the patient on Plavix due to evidence of some mild carotid disease on vascular ultrasound however subsequently he was seen by a vascular medicine specialist and Plavix were discontinued however statin has been kept. BC-Qzzwjzxfxm-Mslrk Work Phone: 1(343) 940-703912-24-2021 History of Present illness Narrative* 86-year-old male with history of hypertension, atherosclerosis with recent episode of syncope beingreferred from primary care physician and vascular/chiller hand for further evaluation management of syncope and dizziness. * Patient states that he had an episode about 3 weeks ago where he had been in his usual state of health. While he was driving he felt very dizzy had some tunnel vision and had pulled over and just felt extremely weak. He denies any dom loss of consciousness. Since then he states he was having episodes of dizziness mostly with activity never with loss of consciousness. His initial episode while driving the car lasted for about 10 to 15 minutes. Subsequent episodes were about 5 to 10 minutes in duration. He denies any dom syncope, chest pain, shortness of breath, palpitations with any of these episodes. He does note 1 episode woke him up at 4 in the morning where he just felt something was wrong and then it completely resolved in 5 minutes. Patient's primary care did his initial evaluation appropriately with a 7-day pvc monitor and an echocardiogram. Patient also underwent a carotid ultrasound. * Patient today in the office states that over the last 5 days he has had no episodes he had noticed an decreasing frequency in his symptoms since his original episode. 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 Patient states he quit tobacco use about 37 years ago. He also quit alcohol use 43 years ago. No drug use. 2 cups of coffee a day. No significant family history of heart disease. Of note patient was previously seen by a neurologist who started the patient on Plavix due to evidence of some mild carotid disease on vascular ultrasound however subsequently he was seen by a vascular medicine specialist and Plavix were discontinued however statin has been kept. UR-Dfzyqmtwmt-Sxzgxydp 320 Work Phone: [phone]) 397-227712-24-2021 History of Present illness Narrative* 86 yo WM with PMH of HTN, very active lal, who looks younger than stated age, is presenting today with his daughter, as s referral by his mining teacher Dr Swanson, for evaluation for carotid arterydisease. * Pt states about 1 month ago he started experiencing near syncopal episodes, with confusion, while driving, and spells of dizziness, lasting for about 3-4 min. He denies CP/SOB, palpitations, visual disturbances associated with the episodes. He is nondiabetic. No balance issues. 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 Report has been scanned in, images are in PACS. * EKG showed NSR with Rt axis deviation. * He was placed on Holter monitor, that showed several episodes of tachycardia, with ventricular ectopies, as well as episodes of bradycardia (report will be scanned into pts chart) * Carotid Ultrasound- 0-49% bilat carotid stenosis. * Echocardiogram- EF 55-60% CC-Znjsazfxzf-EAY [facility] [employer] Work Phone: [phone]) 813-764112-15-2021 History of Present illness Narrative* 86 yo WM with PMH of HTN, very active lal, who looks younger than stated age, is presenting today with his daughter, as s referral by his mining teacher Dr Swanson, for evaluation for carotid arterydisease. * Pt states about 1 month ago he started experiencing near syncopal episodes, with confusion, while driving, and spells of dizziness, lasting for about 3-4 min. He denies CP/SOB, palpitations, visual disturbances associated with the episodes. He is nondiabetic. No balance issues. 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 Report has been scanned in, images are in PACS. * EKG showed NSR with Rt axis deviation. * He was placed on Holter monitor, that showed several episodes of tachycardia, with ventricular ectopies, as well as episodes of bradycardia (report will be scanned into pts chart) * Carotid Ultrasound- 0-49% bilat carotid stenosis. * Echocardiogram- EF 55-60% [employer] Work Phone: [phone] History of Present illness Narrative* 86 yo WM with PMH of HTN, very active lal, who looks younger than stated age, is presenting today with his daughter, as s referral by his mining teacher Dr Swanson, for evaluation for carotid arterydisease. * Pt states about 1 month ago he started experiencing near syncopal episodes, with confusion, while driving, and spells of dizziness, lasting for about 3-4 min. He denies CP/SOB, palpitations, visual disturbances associated with the episodes. He is nondiabetic. No balance issues. 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 Report has been scanned in, images are in PACS. * EKG showed NSR with Rt axis deviation. * He was placed on Holter monitor, that showed several episodes of tachycardia, with ventricular ectopies, as well as episodes of bradycardia (report will be scanned into pts chart) * Carotid Ultrasound- 0-49% bilat carotid stenosis. 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 He has no stenoses of bilateral carotid arteries. His left vertebral artery is patent. I do not believe his drop attacks are related to his vascular perfusion of the brain. I suggest continued work-up. This patient should see a mining teacher and a neurologist for completion of work-up for drop attacks. I will discharge him from my office. 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 He has an occluded right vertebral artery. Left vertebral artery has antegrade flow. He has mild to moderate plaque in the left carotid artery and moderate plaque in the right carotid artery. There are also elevated velocities in the right subclavian artery. Based on velocities there is no significant stenoses in the right carotid system. The patient also has elevated velocities in the left subclavian artery. Based on velocities in the common carotid and internal carotid artery there is no stenoses in the left system either. The discrepancy is based on the fact that there are new guidelines for interpreting carotid duplex studies. The new criteria for hemodynamically significant stenoses is peak systolic velocity of 180. The patient does not meet these criteria for the bilateral carotid artery. Nevertheless the patient does have an occluded vertebral artery which provides blood flow to the cerebellum and could result in vertigo and/or dizziness and/or passing out. I suggest we obtain a CT angiogram of the head and neck to further delineate and and analyze the anatomy. We will order the study and see him back for the results. The meantime the patient should refrain from driving. [facility] Other 11-03-2021 Note [id number] 05-03-2019 History general Narrative - Reported* Type Description Date Medical History Hearing Impaired Medical History Hypertension Medical History Hiatal Hernia Medical History Arthritis Medical History Pernicious Anemia Surgical History Colonoscopy/EGD - Dr. Albert 05/03/2019 Surgical History Vasectomy Hospitalization History Bleeding Ulcer [facility] Other Chief complaint Narrative - Reported* MACARIO ASH is being seen for a consultation for [place] dropp attack. * Patient is a 86-year-old active gentleman/lal who has new onset near syncopal/drop attacks. He was initially seen in emergency room, ultrasound imaging was performed did not reveal any major carotid vascular disease, eventually he consulted with vascular surgeon Dr. Armando who performed CTA of the carotids revealing occluded right vertebral vessel, patent left vertebral vessel, and bilateral internal carotid disease at the level of the cisterns in the intracranial segment. This is very likely the cause of the patient's syncope with three-vessel cerebrovascular disease in addition his ba silar artery is small . Patient has had no true stroke or myocardial infarction or revascularization he has a underlying essential hypertension currently on lisinopril and amlodipine he has no anginal complaints. * My impression is that he has true cerebrovascular related transient ischemia associated with clinical near syncope/drop attacks. * Recommendations, initiate clopidogrel 75 daily, initiate atorvastatin 40 mg daily, proceed with neuro/endovascular consultation at [facility] for consideration of possible basilar artery (doubt carotid internal artery) revascularization versus continued medical therapy. I would recommend allowing mean arterial blood pressure/systolic pressure to run higher in order for better cerebral perfusion. We will follow-up in the next 3 months [facility] 250 DO Work Phone: Chief complaint Narrative - Reported* MACARIO ASH is being seen for a cardiovascular evaluation. * MACARIO ASH is being seen for carotid stenosis. [facility] [employer] 1500 DO Work Phone: chief complaint Narrative - ReportedMACARIO ASH is being seen for a consultation for dizziness and Near syncope. [facility] 320 Work Phone: chiph complaint Narrative - Reported* MACARIO ASH is being seen for a cardiovascular evaluation. * MACARIO ASH is being seen for carotid stenosis. [facility] Work Phone: [place] complaint Narrative - Reported* MACARIO ASH is being seen for a cardiovascular evaluation. * MACARIO ASH is being seen for carotid stenosis. [facility] [employer] 1500 DO Work Phone: chiii complaint Narrative - Reported* Patient is an 87-year-old active lal who returns following recent inferior ST elevation OK for transitional care management visit. He underwent primary revascularization of the RCA with 2 large and long drug-eluting stents performed by Dr. Sparrow. This was uncomplicated other than transient atrial fibrillation restoring normal sinus rhythm with 1 countershock during the procedure. Left ventricular function is normal. * Patient was discharged and returned within 3 days with severe dyspnea and shortness of breath; we switched him over to clopidogrel. He is diagnosed with paroxysmal A. fib from loop recorder that was placed previously, and we placed him on Xarelto and transition to clopidogrel. * He follows up now his dyspneic is completely resolved he has no recurrent chest discomfort. He has persistent complaints of low back arthritic pain and foot arthritic pain. We have counseled him on the potential issues and hazards with injections given the fact he is on DOAC and antiplatelet therapies. * He does have significant back pain as well as lower extremity edema we note that he is on high-doseamlodipine which is likely part of his issue with edema. He is also hypertensive today. * Recommendations we will discontinue his lisinopril and amlodipine, switch this out for valsartan 320 mg daily for the treatment of both accelerated hypertension and edema we will allow him to enroll in cardiac rehab, follow-up in 6 months. He can discontinue his aspirin at this standpoint as well, c ontinue with clopidogrel and Eliquis. -[facility] 250 DO Work Phone: Discharge summary Author Lidia Borja [facility] May 08, 2022 2:18pm Note Date/Time May 08, 2022 2:18 pm [facility] [address] [place], [place] [id number] Discharge Summary Signed Patient: Macario Ash MR#: [id number] : 1935 Acct:[id number] Age/Sex: 87 / M Adm Date: 2 Loc: Room: [address] [place] [address]: Lidia Borja MD Copies to: MD Lidia Roberto MD~ Providers Date of Discharge: 05/08/22 Discharging Provider: Lidia Borja Primary Care Provider: Moon Harper Consults: 05/07/22 14:22 Consult to Cardiology Routine 05/08/22 07:37 Consult to Occupational Therapy Routine Consult to Physical Therapy Routine Discharge Diagnosis (1) Stented coronary artery: (2) Hypertension: (3) Hyperlipidemia: (4) Syncope: (5) ASHD (arteriosclerotic heart disease): (6) Recent inferior myocardial infarction: (7) Paroxysmal atrial fibrillation: Final Diagnosis Final Discharge Diagnosis: As above Summary Hospital Course Hospital course: Patient is a pleasant 87-year-old male with recent inferior STEMI presented to the emergency room with complaint of shortness of breath since he has been discharged on Brilinta. He was kept in the hospital and cardiology was consulted. Impression his symptoms likely related to Brilinta and has been switched to Plavix. Patient also has a loop recorder and noted to have episodesof A. fib and started on Eliquis by cardiology. No event during hospital stay and he has been cleared to be discharged home. He will follow-up with cardiology as an outpatient. Condition Condition at Discharge: Stable Status at Discharge Functional status at discharge: independent ambulation Time Spent with Patient Time spent providing/coordinating discharge services (# min): 22 Diagnostic Studies Completed and Pending Studies Labs on day of discharge: 05/07/22 15:54: Troponin I High Sens 13 05/07/22 11:59: COVID-19 Clin Com Negative Exam Physical Exam Vital Signs: Temp Pulse Resp BP Pulse Ox O2 Del Method 98.2 F 65 18 139/83 97 Room Air 05/08/22 11:21 05/08/22 11:21 05/08/22 11:21 05/08/22 11:21 05/08/22 11:21 05/08/22 11:21 Const General: cooperative Orientation: alert, awake and oriented x3 Neck Neck: normal visual inspection and full ROM Resp Effort & Inspection: normal respiratory effort and able to speak in complete sentences Auscultation: no rales, no rhonchi and no wheezes Cardio Rate: regular rate Rhythm: regular rhythm Heart Sounds: S1 normal and S2 normal GI Palpation: soft, not firm, no guarding and nontender Auscultation: normal bowel sounds Musc Cervical Spine: normal cervical lordosis and cervical ROM normal Neuro General: patient alert, patient awake, patient oriented x3, moves all extremities and no focal motor deficits Cranial Nerves: CN's II-XII intact bilaterally Cognition: normal cognition Speech: speech normal Motor: muscle tone normal throughout and strength 5/5 throughout Sensory Exam: no sensory deficits noted Extrem General: no calf tenderness and edema Laterality: bilaterally Severity: 1+ Discharge Plan Discharge Plan Patient Disposition: Home Activity: No Activity Restriction Diet: Low-Sodium and Low-Cholesterol Prescriptions: New clopidogrel 75 mg Tablet 75 mg PO DAILY 30 Days Qty: 30 12RF furosemide 20 mg Tablet 20 mg PO DAILY.8A 30 Days Qty: 30 12RF Eliquis 5 mg Tablet 5 mg PO BID 30 Days Qty: 60 12RF Continued celecoxib [Celebrex] 200 mg Capsule 200 mg PO DAILY amlodipine 5 mg tablet 10 mg PO DAILY lisinopril 40 mg tablet 40 mg PO DAILY omeprazole magnesium [Prilosec OTC] 20 mg Tablet,Delayed Release (Dr/Ec) 20 mg PO DAILY diclofenac sodium 1 % gel 1 appful topical QID PRN (Reason: Pain) cyanocobalamin (vitamin B-12) 1,000 mcg/mL Kit 1,000 mcg IM QMONTH cetirizine [Zyrtec] 10 mg Tablet 10 mg PO DAILY Florajen Acidophilus 20 billion cell Capsule 100 mg PO DAILY econazole-triamcinolone 1-0.1 % Combo Pack,Ointment And Cream See Rx Instructions .ROUTE .COMPLEX Rx Instructions: 1%-0.1% combo pack, 1 package topically per package directions PRN aspirin [Children's Aspirin] 81 mg Tablet,Chewable 81 mg PO DAILY Qty: 30 11RF atorvastatin 40 mg Tablet 40 mg PO QPM Qty: 30 11RF metoprolol succinate [Toprol XL] 50 mg tablet extended release 24 hr 25 mg PO DAILY Discontinued Brilinta 90 mg Tablet 90 mg PO BID Qty: 60 11RF Follow Up: Rowena Swanson DO [Active Staff - D.O.] - 05/21/22 11:40 am Moon Harper MD [Primary Care Provider] - 05/15/22 10:30 am (Post hospital follow up appointment. Please call and reschedule if needed.) Documented By: Lidia Borja MD 05/08/22 1415 Signed By: <Electronically signed by Lidia Borja MD> 05/08/22 1418 [facility] Work Phone: Evaluation + Plan note No data available for this section [facility] Diagnosis Onset Date Resolution Status Essential hypertension acute Hyperlipidemia acute 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 acute Chest pain acute Hyperlipidemia acute Hypertension acute Shortness of breath acute Stented coronary artery acut e [facility] Work Phone: Evaluation note* Diagnosis Onset Date Resolution Status Essential hypertension acute Hyperlipidemia acute 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 acute ASHD (arteriosclerotic heart disease) acute Chest pain acute Hyperlipidemia acute Hypertension acute Recent inferior myocardial infarction acute Shortness of breath acute Stented coronary artery acut e Syncope acute [facility] Work Phone: Evaluation noteNo assessment information available [facility] Work Phone: Evaluation note* Diagnosis Atrial fibrillation, unspecified type (CMS/HCC) 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 Benign essential hypertension Essential hypertension, benign History of OK (myocardial infarction) 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 Implantable loop recorder present Stenosis of carotid artery, unspecified laterality Carotid atherosclerosis, unspecified laterality Bilateral carotid bruits documented in this encounter [facility] Work Phone: Evaluation note* Diagnosis Atrial fibrillation, unspecified type (CMS/HCC) 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 Benign essential hypertension Essential hypertension, benign Stenosis of carotid artery, unspecified laterality Carotid atherosclerosis, unspecified laterality Bilateral carotid bruits documented in this encounter [facility] Work Phone: History and physical note Author Lidia Borja [facility] May 07, 2022 2:49pm Note Date/Time May 07, 2022 2:43 pm [facility] [address] [place] [address] Hospitalist H&P Signed Patient: Macario Ash MR#: [id number] : 1935 Acct:[id number] Age/Sex: 87 / M Adm Date: 2 Loc: Room: [address] [place] [address] Type : ADM IN Attending Dr: Lidia Borja MD Copies to: MD Lidia Roberto MD~ HPI DATE OF EXAMINATION: 05/07/22 CHIEF COMPLAINT: Shortness of breath and generalized weakness. HISTORY OF PRESENT ILLNESS: Patient is a pleasant 87-year-old male with past medical history of hypertension, peptic ulcer with recent hospitalization for acute inferior ST elevated OK on 04/11/2022 for which he underwent cardiac catheterization with 2 stent placement to RCA. His EF was found to be 40 to 45%. He also developed Mobitz type II AV block which improved after revascularization. Patient was discharged aspirin with Brilinta and metoprolol. Patient mentioned initially after getting discharged he felt weak gradually he started getting his strength back almost back to his normal but again he developed weakness with shortness ofbreath. He gets short of breath on minimal exertion along with signs of orthopnea and noticed pedal edema. He was started on Lasix by his primary care provider with improvement in leg swelling but continues to have shortness of breath. He is having difficulty to lie flat due to his symptoms presented to the emergency. Earlier today he felt nauseous and belching which was a similar feeling he had on his previous OK which made him come to the emergency room. Inthe ER labs did not show any significant abnormality with EKG showing inverted Twaves on inferior lateral leads. Paste was applied without any relief. During my evaluation he denies having chest pain or shortness of breath while sitting in the bed. Patient will be kept in the hospital to further evaluate. He did mention feeling anxious as well. Review of Systems Review of Systems All other systems reviewed & are negative unless noted below or in HPI PMFSH Vaccinated for COVID-19?: Yes Medical History (Updated 05/07/22 @ 14:47 by Lidia Borja MD) Diverticulosis History of cardiac monitoring Hypertension Normal colonoscopy NSTEMI (non-ST elevated myocardial infarction) Palpitation Peptic ulcer Spinal stenosis STEMI (ST elevation myocardial infarction) Syncope Family History Other No significant family history Social History Smoking Status: Former smoker Tobacco Type: cigarettes Substance Use Type: None Meds Medications and Allergies Allergies bee venom protein (honey bee) Allergy (Verified 05/07/22 11:09) Swelling of Lip/Tongue/Throat Penicillins Allergy (Verified 05/07/22 11:09) Unknown Reaction Home Medications amlodipine 5 mg tablet 10 mg PO DAILY 05/03/19 [History Confirmed 05/07/22] celecoxib 200 mg capsule (Celebrex) 200 mg PO DAILY 05/03/19 [History Confirmed 05/07/22] cyanocobalamin (vitamin B-12) 1,000 mcg/mL injection kit 1,000 mcg IM QMONTH 05/03/19 [History Confirmed 05/07/22] diclofenac sodium 1 % topical gel 1 appful topical QID PRN Pain 05/03/19 [History Confirmed 05/07/22] lisinopril 40 mg tablet 40 mg PO DAILY 05/03/19 [History Confirmed 05/07/22] omeprazole magnesium 20 mg tablet,delayed release (Prilosec OTC) 20 mg PO DAILY 05/03/19 [History Confirmed 05/07/22] Lactobacillus acidophilus 20 billion cell capsule (Florajen Acidophilus) 100 mg PO DAILY 04/11/22 [History Confirmed 05/07/22] cetirizine 10 mg tablet (Zyrtec) 10 mg PO DAILY 04/11/22 [History Confirmed 05/07/22] econazole 1 % cream and triamcinolone 0.1 % ointment, topical pack See Rx Instructions .Route .COMPLEX 04/11/22 [History Confirmed 05/07/22] aspirin 81 mg chewable tablet (Children's Aspirin) 81 mg PO DAILY #30 tabs 04/12/22 [Rx Confirmed 05/07/22] atorvastatin 40 mg tablet 40 mg PO QPM #30 tabs 04/12/22 [Rx Confirmed 05/07/22] ticagrelor 90 mg tablet (Brilinta) 90 mg PO BID #60 tabs 04/12/22 [Rx Confirmed 05/07/22] metoprolol succinate 50 mg tablet,extended release 24 hr (Toprol XL) 25 mg PO DAILY 05/07/22 [History Confirmed 05/07/22] Exam Physical Exam Vital Signs: Temp Pulse Resp BP Pulse Ox O2 Del Method 98.5 F 76 22 132/73 96 Room Air 05/07/22 11:09 05/07/22 13:30 05/07/22 13:30 05/07/22 13:30 05/07/22 13:30 05/07/22 14:08 Const General: cooperative Orientation: alert, awake and oriented x3 HEENT Head: normal to inspection, no palpable skull fracture, normocephalic and atraumatic Ears: hearing grossly normal bilaterally Nose: external nose normal Face and sinus: normal facial exam Eyes Pupils: PERRL EOM: EOM intact bilaterally and No nystagmus Neck Neck: normal visual inspection and full ROM Resp Effort & Inspection: normal respiratory effort and able to speak in complete sentences Auscultation: no rales, no rhonchi and no wheezes Cardio Rate: regular rate Rhythm: regular rhythm Heart Sounds: S1 normal and S2 normal GI Palpation: soft, not firm, no guarding and nontender Auscultation: normal bowel sounds Musc Cervical Spine: normal cervical lordosis and cervical ROM normal Neuro General: patient alert, patient awake, patient oriented x3, moves all extremities and no focal motor deficits Cranial Nerves: CN's II-XII intact bilaterally Cognition: normal cognition Speech: speech normal Motor: muscle tone normal throughout and strength 5/5 throughout Sensory Exam: no sensory deficits noted Extrem General: no calf tenderness and edema Laterality: bilaterally Severity: 1+ Psych Appearance: grossly normal Results Lab Results Labs: Laboratory Last Values Corrected WBC 7.1 X10E3/uL (4.1-10.5) 05/07/22 11:24 Uncorrected WBC Count 7.1 x10E3/uL (4.5-11.0) 05/07/22 11:24 RBC 4.31 x10E6/uL (3.90-5.60) 05/07/22 11:24 Hgb 13.8 g/dL (13.0-17.0) 05/07/22 11:24 Hct 40.3 % (38.8-50.0) 05/07/22 11:24 MCV 93.5 fl (83.5-101) 05/07/22 11:24 MCH 32.0 pg (27.5-35.2) 05/07/22 11:24 MCHC 34.2 g/dL (32.5-35.6) 05/07/22 11:24 RDW 13.5 % (12.0-14.8) 05/07/22 11:24 Plt Count 178 x10E3/uL (150-450) 05/07/22 11:24 MPV 9.5 fl (6.6-10.1) 05/07/22 11:24 Neut % (Auto) 65.4 % (.) 05/07/22 11:24 Lymph % (Auto) 23.2 % (.) 05/07/22 11:24 [place] % (Auto) 8.6 % (.) 05/07/22 11:24 Eos % (Auto) 1.3 % (.) 05/07/22 11:24 Baso % (Auto) 1.5 % (.) 05/07/22 11:24 Neut # (Auto) 4.6 x10E3/uL (1.8-7.7) 05/07/22 11:24 Lymph # (Auto) 1.6 x10E3/uL (1.00-4.8) 05/07/22 11:24 [place] # (Auto) 0.6 x10E3/uL (0.0-0.8) 05/07/22 11:24 Eos # (Auto) 0.1 x10E3/uL (0.0-0.45) 05/07/22 11:24 Baso # (Auto) 0.1 x10E3/uL (0.0-0.2) 05/07/22 11:24 Nucleated RBC % (auto) 0.1 % (0-0.5) 05/07/22 11:24 PT 13.3 Seconds (9.0-12.9) H 05/07/22 11:24 INR 1.2 05/07/22 11:24 APTT 30.8 Seconds (25.1-36.5) 05/07/22 11:24 PHA Creatinine Clear 52.05 05/07/22 11:24 Sodium 133 mmol/L (136-146) L 05/07/22 11:24 Potassium 3.9 mmol/L (3.5-5.1) 05/07/22 11:24 Chloride 102 mmol/L (95-114) 05/07/22 11:24 Carbon Dioxide 22.2 mmol/L (22.0-30.0) 05/07/22 11:24 BUN 14 mg/dL (9-23) 05/07/22 11:24 Creatinine 1.17 mg/dL (0.64-1.27) 05/07/22 11:24 Est GFR ( Amer) > 60 mL/Min 05/07/22 11:24 Est GFR (Non-Af Amer) 59 mL/Min 05/07/22 11:24 Glucose 118 mg/dL (70-100) H 05/07/22 11:24 Calcium 9.5 mg/dL (8.2-10.2) 05/07/22 11:24 Total Creatine Kinase 90 U/L (22-269) 05/07/22 11:24 CK-MB (CK-2) 2.9 ng/mL (0.6-6.3) 05/07/22 11:24 CK-MB (CK-2) Rel Index 3.2 % (0.00-2.50) H 05/07/22 11:24 Troponin I High Sens 12 pg/mL (0-20) 05/07/22 11:24 B-Natriuretic Peptide 106.0 pg/mL (5-100) H 05/07/22 11:24 COVID-19 PCR Interp N/A 05/07/22 11:59 SARS Antigen (LFIA) Negative (Negative) 05/07/22 11:59 Microbiology Results Micro: Microbiology - Results from entire visit 05/07/22 11:59 Nasal SARS Antigen (LFIA) - Final A&P - Hospitalist Assessment/Plan (1) Stented coronary artery: (2) Hyperlipidemia: (3) Hypertension: (4) Shortness of breath: Plan Patient presented to the emergency room with complaint of shortness of breath onminimal exertion along with generalized weakness. Symptoms could be related to Brilinta. He did have cardiomyopathy and mentioned increased leg swelling whichis improved after starting Lasix. BNP is only 106. I will continue oral diuresis. X-ray negative for acute abnormality and currently on room air. Willcheck venous duplex lower extremity and consult cardiology to further evaluate. Continue dual antiplatelet and defer to cardiology to switch to other antiplatelet from Brilinta. Continue statin, amlodipine, lisinopril and metoprolol. DVT prophylaxis. Documented By: Lidia Borja MD 05/07/22 1430 Signed By: <Electronically signed by Lidia Borja MD> 05/07/22 1449 [facility] Work Phone: History of Present illness Narrative* 86-year-old male with history of hypertension, atherosclerosis with recent episode of syncope beingreferred from primary care physician and vascular/chiller hand for further evaluation management of syncope and dizziness. At the last clinic visit pt was started on low dose BB. S[place]ethen he reports he has been feeling well overall however still is having episodes intermittently. He states that after initiation of beta-blockers his episodes are occurring less frequently and are shorter but he still having them roughly every 5 to 6 days. Episodes still are associated with significant near syncope and patient states after the episode generally he feels back to normal. He deniesany dom chest pain, shortness of breath, palpitations, abdominal pain, vomiting, changes in visions, mentation. Patient states he has been taking his medications as prescribed and is currently taking half a tablet of metoprolol that is 12.5 mg twice daily. He has also been recording his blood pressure every day and systolic blood pressures at home have been in the 140-150s. * A 12 point ROS was done, and negative unless otherwise stated in the HPI. * Dizziness HPI: * Patient states that he had an episode about 3 weeks ago where he had been in his usual state of health. While he was driving he felt very dizzy had some tunnel vision and had pulled over and just felt extremely weak. He denies any dom loss of consciousness. Since then he states he was having episodes of dizziness mostly with activity never with loss of consciousness. His initial episode while driving the car lasted for about 10 to 15 minutes. Subsequent episodes were about 5 to 10 minutes in duration. He denies any dom syncope, chest pain, shortness of breath, palpitations with any of these episodes. He does note 1 episode woke him up at 4 in the morning where he just felt something was wrong and then it completely resolved in 5 minutes. Patient's primary care did his initial evaluation appropriately with a 7-day pvc monitor and an echocardiogram. Patient also underwent a carotid ultrasound. * Patient today in the office states that over the last 5 days he has had no episodes he had noticed an decreasing frequency in his symptoms since his original episode. 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 Patient states he quit tobacco use about 37 years ago. He also quit alcohol use 43 years ago. No drug use. 2 cups of coffee a day. No significant family history of heart disease. Of note patient was previously seen by a neurologist who started the patient on Plavix due to evidence of some mild carotid disease on vascular ultrasound however subsequently he was seen by a vascular medicine specialist and Plavix were discontinued however statin has been kept. [facility] 100 DO Work Phone: History of Present illness Narrative* The patient presents for follow-up of essential hypertension. The patient states he has been doing well with his blood pressure control since the last visit. * Symptoms: denies impaired vision, denies dyspnea, denies chest pain, denies intermittent leg claudication and denies lower extremity edema. Associated symptoms include no headache. * Home monitoring: The patient checks his blood pressure regularly. Blood pressure control has been good. -[facility] 250 DO Work Phone: History of Present illness Narrative* The patient presents for follow-up of essential hypertension. The patient states he has been doing well with his blood pressure control since the last visit. * Symptoms: denies impaired vision, denies dyspnea, denies chest pain, denies intermittent leg claudication and denies lower extremity edema. Associated symptoms include no headache. * Home monitoring: The patient checks his blood pressure regularly. Blood pressure control has been good. 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 Procedures Follow Up In Cardiology Macario Swanson DO [facility], [address] [address] Macario Swanson DO [facility], [address] [address] Referral ID Status Reason Start Date Expiration Date V isits Requested Visits Authorized [id number] Authorized 08/11/2023 08/10/2024 1 1 * Imaging (Routine) - Pending Review Specialty Diagnoses / Procedures Referred By Paulina melton Referred To Contact Cardiology Diagnoses Atrial fibrillation, unspecified type (CMS/HCC) 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 Benign essential hypertension Stenosis of carotid artery, unspecified laterality Carotid atherosclerosis, unspecified laterality Bilateral carotid bruits Procedures Vascular US Carotid Artery Duplex Bilateral Macario Swanson DO [facility], [address] [address] Referral ID Status Reason Start Date Expiration Date Visits Requested Visits Authorized [id number] Pending Review Perform Procedure 08/10/2024 1 1 T [facility] Work Phone: Family History No Family History Records FoundUnknown Family Member Name Dates Details Family history of malignant neoplasm: Father(V16.9, Z80.9) Status:Active Family history of hypertensi on: Mother(V17.49, Z82.49) Status:Active Unknown Family Member Name Dates Details Family history of hypertensi on: Mother(V17.49, Z82.49) Status:Active Family history of malignant neoplasm: Father(V16.9, Z80.9) Status:Active Unknown Family Member Name Dates Details Family history of hypertensi on: Mother(V17.49, Z82.49) Status:Active Family history of malignant neoplasm: Father(V16.9, Z80.9) Status:Active Unknown Family Member Name Dates Details Family history of malignant neoplasm: Father(V16.9, Z80.9) Status:Active Family history of hypertensi on: Mother(V17.49, Z82.49) Status:Active Unknown Family Member Name Dates Details Family history of malignant neoplasm: Father(V16.9, Z80.9) Status:Active Family history of hypertensi on: Mother(V17.49, Z82.49) Status:Active Unknown Family Member Name Dates Details Family history of hypertensi on: Mother(V17.49, Z82.49) Status:Active Family history of malignant neoplasm: Father(V16.9, Z80.9) Status:Active Unknown Family Member Name Dates Details Family history of malignant neoplasm: Father(V16.9, Z80.9) Status:Active Family history of hypertensi on: Mother(V17.49, Z82.49) Status:Active Unknown Family Member Name Dates Details Family history of malignant neoplasm: Father(V16.9, Z80.9) Status:Active Family history of hypertensi on: Mother(V17.49, Z82.49) Status:Active Unknown Family Member Name Dates Details Family history of malignant neoplasm: Father(V16.9, Z80.9) Status:Active Family history of hypertensi on: Mother(V17.49, Z82.49) Status:Active Unknown Family Member Name Dates Details Family history of malignant neoplasm: Father(V16.9, Z80.9) Status:Active Family history of hypertensi on: Mother(V17.49, Z82.49) Status:Active Unknown Family Member Name Dates Details Family history of malignant neoplasm: Father(V16.9, Z80.9) Status:Active Family history of hypertensi on: Mother(V17.49, Z82.49) Status:Active Unknown Family Member Name Dates Details Family history of malignant neoplasm: Father(V16.9, Z80.9) Status:Active Family history of hypertensi on: Mother(V17.49, Z82.49) Status:Active Unknown Family Member Name Dates Details Family history of malignant neoplasm: Father(V16.9, Z80.9) Status:Active Family history of hypertensi on: Mother(V17.49, Z82.49) Status:Active Relationship Condition Age at Onset Recorded Date/T victor hugo Not Specified No pertinent family history Unknown Unknown Family Member Name Dates Details Family history of malignant neoplasm: Father(V16.9, Z80.9) Status:Active Family history of hypertensi on: Mother(V17.49, Z82.49) Status:Active Unknown Family Member Name Dates Details Family history of malignant neoplasm: Father(V16.9, Z80.9) Status:Active Family history of hypertensi on: Mother(V17.49, Z82.49) Status:Active Unknown Family Member Name Dates Details Family history of malignant neoplasm: Father(V16.9, Z80.9) Status:Active Family history of hypertensi on: Mother(V17.49, Z82.49) Status:Active Unknown Family Member Name Dates Details Family history of malignant neoplasm: Father(V16.9, Z80.9) Status:Active Family history of hypertensi on: Mother(V17.49, Z82.49) Status:Active Unknown Family Member Name Dates Details Family history of malignant neoplasm: Father(V16.9, Z80.9) Status:Active Family history of hypertensi on: Mother(V17.49, Z82.49) Status:Active Unknown Family Member Name Dates Details Family history of malignant neoplasm: Father(V16.9, Z80.9) Status:Active Family history of hypertensi on: Mother(V17.49, Z82.49) Status:Active Unknown Family Member Name Dates Details Family history of malignant neoplasm: Father(V16.9, Z80.9) Status:Active Family history of hypertensi on: Mother(V17.49, Z82.49) Status:Active Unknown Family Member Name Dates Details Family history of malignant neoplasm: Father(V16.9, Z80.9) Status:Active Family history of hypertensi on: Mother(V17.49, Z82.49) Status:Active Summary Purpose Advance Directives No Advanced Directives Records Found Advance Directive Response Recorded Date/ Time Advance Directives No May 01 11:21am Advance Directive Response Recorded Date/ Time Advance Directives No May 01 10:21am Chief Complaint MACARIO ASH is being seen for dizziness.MACARIO ASH is being seen for a 1 month follow-up of palpitations.* Blood pressure management: my back still hurts * MACARIO ASH is being seen for a 4 week follow-up of hypertension. * Blood pressure management: my back still hurts * MACARIO ASH is being seen for a 4 week follow-up of hypertension. * Patient presents to the office today ambulatory with steady gait, accompanied by his . * Last evaluated in clinic by myself June 2022. * At that time, patient remained hypertensive -there were no changes to medical regimen. * He presents today with a list of home blood pressure recordings with systolic most consistently 120-140; his home manual machine was checked in office and is accurate. * Here in the office today systolic blood pressure remains 150. He relates this to chronic back pain and excruciating pain due from walking in from the parking lot. He has very rare elevated blood pressure recordings at home when he has having a lot of pain . Today he reports attending cardiac rehab and blood pressure is okay at the beginning . * He continues to request interruption in antiplatelet for back injections, both he and remain somewhat argumentative regarding treatment for chronic back pain. The reports that he refuses tohave back injections unless they are done any under anesthesia, the does not want him to utilize gabapentin, he recently received a steroid injection from PCP with mild improvement. Have encouraged him to discuss neck step with primary care physician. If he does decide to proceed with epiduralinjections, he will need to contact Dr. Swanson for approval of interruption due to April 11, 2022 STEMI. * He does have an implantable loop recorder; last check in [facility] system was in April 2022. I will need [facility] device clinic to have report sent to [facility]. * He otherwise denies any type of exertional symptoms, no palpitations. Is compliant with medicationsas listed below. * Primary concern is to avoid overtreatment for hypertension that is being driven by back pain. His home machine is accurate, I have reviewed all recorded blood pressures and for the most part they remain optimal. His blood pressure will continue to be evaluated at cardiac rehab. * Will not make any adjustments at this time. * MACARIO ASH is being seen for a 6 month follow-up of. * 87-year-old gentleman who returns for follow-up and is overall doing well from a cardiovascular standpoint however he has persistent severe symptomatic arthritis and pain which is driving his blood pressure up. Additionally he is taking care of his at home the psychosocial stress is also driving his blood pressure up as well. 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 Fry with preserved LV function. He has underlying hypertension, obesity and paroxysmal atrial fibrillation diagnosed during his OK with successful cardioversion but no further episodes since that time. * Patient is unable to take his routine arthritis medications due to the combination Eliquis and clopidogrel therapy. Patient has not had any clinical arrhythmias, I maintains a normal rhythm since theevent and is not currently on any antiarrhythmic therapy. Blood pressure on my recheck was 160/78. 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 * Given the above we will otherwise follow-up in 8 months continue same medications reassess blood pressure in the interim. 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 ASHD (arteriosclerotic heart disease) Chest pain Hyperlipidemia Hypertension Recent inferior myocardial infarction Shortness of breath Stented coronary artery Syncope Chief Complaint Afib Afib Chief Complaint Afib Afib Afib Reason for Referral Specialty Diagnoses / Procedures Referred By Contac t Referred To Contact Cardiology Diagnoses Atrial fibrillation, unspecified type (CMS/HCC) 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 Benign essential hypertension Stenosis of carotid artery, unspecified laterality Carotid atherosclerosis, unspecified laterality Bilateral carotid bruits Procedures Vascular US Carotid Artery Duplex Bilateral Macario Swanson DO [facility], [address] [place] [address] Referral ID Status Reason Start Date Expiration Date Visits Requested Visits Authorized [id number] Pending Review Perform Procedure 3 08/10/2024 1 1 Additional Source Comments (unrecognized sect ion and content) No Status Records FoundNo Status Records FoundNo Status Records FoundNo Status Records FoundNo Status Records FoundNo Status Records FoundNo Status Records FoundNo Status Records FoundNo Status Records Found INFORMATION SOURCE (unrecogn ized section and content) DATE CREATED AUTHOR 11/04/2021 [employer] DATE CREATED AUTHOR AUTHOR'S ORGANIZ ATION 01/13/2022 [facility] DATE CREATED AUTHOR AUTHOR'S ORGANIZ ATION 04/09/2022 [facility] DATE CREATED AUTHOR AUTHOR'S ORGANIZ ATION 12/10/2022 [employer] DATE CREATED AUTHOR AUTHOR'S ORGANIZ ATION 02/18/2023 [facility] DATE CREATED AUTHOR AUTHOR'S ORGANIZ ATION 06/29/2023 [facility] DATE CREATED AUTHOR AUTHOR'S ORGANIZ ATION 08/15/2023 [facility] DATE CREATED AUTHOR AUTHOR'S ORGANIZ ATION 10/07/2023 [facility] DATE CREATED AUTHOR AUTHOR'S ORGANIZ ATION 11/26/2023 [facility] REASON FOR VISIT (unrecogniz ed section and content) Reason Comments Follow-up 8 months Specialty Diagnoses / Procedures Referred By Contac t Referred To Contact Cardiology Diagnoses Atrial fibrillation, unspecified type (CMS/HCC) 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 Benign essential hypertension Stenosis of carotid artery, unspecified laterality Carotid atherosclerosis, unspecified laterality Bilateral carotid bruits Procedures Vascular US Carotid Artery Duplex Bilateral Macario Swanson DO [facility] [facility], [facility] [address] [place] [address] Referral ID Status Reason Start Date Expiration Date Visits Requested Visits Authorized [id number] Pending Review Perform Procedure 3 08/10/2024 1 1 Care Teams (unrecognized sec tion and content) Team Status: Active Member Role Status Margaux Harper MD Primary Care Provider Active Christ Ansari MD Emergency Provider Active Lidia Borja MD Admit Provider, Attending Provider Active Sadie Parr MD Other Provider Active Team Status: Inactive Member Role Status Dates Moon Harper MD Primary Care Provider Active Delmis Starks RN Other Provider Active Rowena Swanson DO Other Provider Active Alka Costello MD Other Provider Active Macario Corona MD Other Provider Active Sadie Parr MD Other Provider Active Robert Davenport MD Other Provider Active Gisele Schilling APRN Other Provider Active Naila Modi MD Other Provider Active Katelin Solitario MD Other Provider Active Charity Mg MD Other Provider Active Shobha Veras MD Admit Provider Active Patsy Smith MD Attending Provider Active Team Status: Active Member Role Status Margaux Harper MD Primary Care Provider Active Team Status: Inactive Member Role Status Margaux Harper MD Primary Care Provider Active Christ Ansari MD Emergency Provider Active Lidia Borja MD Admit Provider, Attending Provider Active Team Status: Inactive Member Role Status Margaux Harper MD Primary Care Provider Active Macario Corona MD Attending Provider Active Executive [employer] Relationship Specialty Start Date End Date Moon Harper MD [address] [place] [address] PCP - General 10/18/99 [employer] Relationship Specialty Start Date End Date Moon Harper MD [address] [place] [address] PCP - General 10/18/99 Goals (unrecognized section and content) Goals may be documented in a n alternate section FOR RECORDS PERTAINING TO PATIENTS WHO ARE OR HAVE BEEN ENROLLED IN A CHEMICAL DEPENDENCY/SUBSTANCEABUSE PROGRAM, SOME INFORMATION MAY BE OMITTED. This clinical summary was aggregated from multiple sources. Caution should be exercised in using it in the provision of clinical care. This summary normalizes information from multiple sources, and as a consequence, information in this document may materially change the coding, format and clinical context of patient data. In addition, data may be omitted in some cases. CLINICAL DECISIONS SHOULD BE BASED ON THE PRIMARY CLINICAL RECORDS. [facility] [facility]. provides no warranty or guarantee of the accuracy or completeness of information in this document.
--- NOTE | 2024-03-30 17:47 | ED_ITS ---
HPI HPI - Head Injury General Chief complaint: Head Injury Stated complaint: Laceration to head from fall off ladder Time Seen by Provider: 03/30/24 17:27 Source: patient Mode of arrival: walk-in Limitations: no limitations History of Present Illness HPI Narrative: Patient is an 89-year-old male who is not anticoagulated who presents to the emergency department for evaluation after a fall off of a ladder and hitting his head on cement. Patient states he was approximately 3 to 4 feet Off the ground coming down on a ladder when he missed a rung and fell backward, he landed on his back and hit his head. He sustained superficial abrasions to the back of the head. He denies loss of consciousness. He states that the time that he hit his head, he had some discomfort but really has no headache at this time. He has no areas of pain, he states his made him come to the ER. He has not had any bleeding from the scalp, he has no neck or back pain. He arrives ambulatory in the ER. No medications taken prior to arrival Related Data Home Medications ?Medication ?Instructions ?Recorded ?Confirmed aspirin 81 mg tablet,delayed 81 mg PO DAILY 03/30/24 03/30/24 release (Latricia Low Dose Aspirin) atorvastatin 40 mg tablet 40 mg PO DAILY 03/30/24 03/30/24 celecoxib 200 mg capsule (Celebrex) 200 mg PO DAILY 03/30/24 03/30/24 cetirizine 10 mg tablet (24Hour 5 mg PO DAILY PRN allergy symptoms 03/30/24 03/30/24 Allergy) cholecalciferol (vitamin D3) 50 50 mcg PO DAILY 03/30/24 03/30/24 mcg (2,000 unit) capsule furosemide 20 mg tablet 20 mg PO DAILY 03/30/24 03/30/24 metoprolol succinate 25 mg 12.5 mg PO DAILY 03/30/24 03/30/24 tablet,extended release 24 hr pantoprazole 40 mg tablet,delayed 40 mg PO DAILY 03/30/24 03/30/24 release valsartan 320 mg tablet 320 mg PO DAILY 03/30/24 03/30/24 Allergies Allergy/AdvReac Type Severity Reaction Status Date / Time No Known Drug Allergies Allergy Verified 03/30/24 17:36 Opioid HPI Opioid Management Most Recent Pain and Opioid Data: Last Pain Scale 2 03/30/24 17:40 Review of Systems ROS Constitutional Denies: fever or chills Eyes Denies: change in vision Ears, nose, mouth, and throat Denies: neck pain Cardiovascular Denies: chest pain Respiratory Denies: shortness of breath or cough Gastrointestinal Denies: nausea or vomiting Musculoskeletal Denies: back pain or neck pain Integumentary/Breast Denies: rash Neurological Denies: headache Hematologic/Lymphatic Denies: easy bruising or easy bleeding Exam Narrative Exam Narrative: Gen.: Awake, alert, in no distress Head: Normocephalic, No noted scalp hematoma. Superficial abrasion noted to the occiput. No palpable skull Deformities. ENT: Moist mucous membranes, No facial or dental injuries; . No posterior cervical spine tenderness Respiratory: No respiratory distress Back: No bony tenderness of the T-spine or L-spine, no obvious deformity or step-off Extremities: Moves extremities equally, no injuries noted Psych: Normal mood and affect Neuro: No focal neuro deficit Skin: Warm, dry, intact Constitutional Vital Signs, click to edit/add: Last Vital Signs Temp 98.1 F 03/30/24 17:32 Pulse 76 03/30/24 17:32 Resp 18 03/30/24 17:32 BP 180/86 H 03/30/24 17:32 Pulse Ox 99 03/30/24 17:32 Course Vital Signs Vital signs: Vital Signs Temperature 98.1 F 03/30/24 17:32 Pulse Rate 76 03/30/24 17:32 Respiratory Rate 18 03/30/24 17:32 Blood Pressure 180/86 H 03/30/24 17:32 Pulse Oximetry 99 03/30/24 17:32 Temperature 98.1 F 03/30/24 17:32 Pulse Rate 76 03/30/24 17:32 Respiratory Rate 18 03/30/24 17:32 Blood Pressure 180/86 H 03/30/24 17:32 Pulse Oximetry 99 03/30/24 17:32 MDM - Head Injury MDM Narrative Medical decision making narrative: Patient sent for CTs of the head and cervical spine, Patient does not feel he needs any medication at this time for pain or nausea. He is awake and alert with a normal neuroexam. CT of the head and C-spine are unremarkable and the patient is discharged home, he has no focal medical complaints while in the ER. Tylenol as needed for pain. Follow-up with PCP and return to the ER if symptoms change or worsen Medical Records Attestation: I reviewed the patient's medical records. Imaging Data CT scan - head: Attestation: I have reviewed the pertinent imaging results. Radiologist's impression: ITS Impressions Cervical Spine CT 03/30/24 18:06 IMPRESSION: 1. No acute intracranial abnormality identified. 2. Degenerative changes of the cervical spine as detailed above, no acute osseous abnormality. Electronically authenticated by: SARAH GILBERT Date: 03/30/2024 19:[address] 03/30/24 18:06 IMPRESSION: 1. No acute intracranial abnormality identified. 2. Degenerative changes of the cervical spine as detailed above, no acute osseous abnormality. Electronically authenticated by: SARAH GILBERT Date: 03/30/2024 19:21 CT cervical spine: Attestation: I have reviewed the pertinent imaging results. Radiologist's impression: ITS Impressions Cervical Spine CT 03/30/24 18:06 IMPRESSION: 1. No acute intracranial abnormality identified. 2. Degenerative changes of the cervical spine as detailed above, no acute osseous abnormality. Electronically authenticated by: SARAH GILBERT Date: 03/30/2024 19:[address] 03/30/24 18:06 IMPRESSION: 1. No acute intracranial abnormality identified. 2. Degenerative changes of the cervical spine as detailed above, no acute osseous abnormality. Electronically authenticated by: SARAH GILBERT Date: 03/30/2024 19:21 Discharge Plan Discharge Stand Alone Forms: Portal Instructions Chief Complaint: Head Injury Clinical Impression: Closed head injury Patient Disposition: Home, Self-Care Time of Disposition Decision: 19:25 Condition: Good Prescriptions / Home Meds: No Action cholecalciferol (vitamin D3) 50 mcg (2,000 unit) capsule 50 mcg PO DAILY aspirin [Latricia Low Dose Aspirin] 81 mg tablet,delayed release (DR/EC) 81 mg PO DAILY celecoxib [Celebrex] 200 mg capsule 200 mg PO DAILY valsartan 320 mg tablet 320 mg PO DAILY furosemide 20 mg tablet 20 mg PO DAILY metoprolol succinate 25 mg tablet extended release 24 hr 12.5 mg PO DAILY atorvastatin 40 mg tablet 40 mg PO DAILY cetirizine [24Hour Allergy] 10 mg tablet 5 mg PO DAILY PRN (Reason: allergy symptoms) pantoprazole 40 mg tablet,delayed release (DR/EC) 40 mg PO DAILY Print Language: Turkish Instructions: Head Injury (ED) Referrals: Cholo Nicolas MD [Primary Care Provider] - 1 week
--- NOTE | 2024-03-30 18:06 | CT_ITS ---
The [address] [address] Patient Name: JAY ASH MRN: [id number] date: 1935 Sex: M Assigned Patient Location: ER Current Patient Location: ER Accession/Order Number: [id number] Exam Date: 03/30/2024 17:58 Report Date: 03/30/2024 19:21 At the request of: SHERYL DURAN Procedure: CT cervical spine wo con HEAD and cervical spine CT without contrast, 03/30/2024 5:58 PM EDT: CLINICAL HISTORY: Fall, head injury. COMPARISON: None available. TECHNIQUE: Axial noncontrast CT imaging of the head and cervical spine was performed. Additional reformatted sagittal and coronal projections were also obtained. Dose reduction techniques were achieved by using automated exposure control and/or adjustment of mA and/or kV according to patient size and/or use of iterative reconstruction technique. FINDINGS: Head CT Ventricular and sulcal size is normal for the patient's age. No areas of abnormal attenuation are identified. There is no mass effect, midline shift or intracranial hemorrhage. There is no evidence of acute infarction. There are no extra axial fluid collections. Visualized paranasal sinuses, mastoid air cells and orbital contents are unremarkable. Cervical spine CT Bones are diffusely demineralized. There is no acute fracture or subluxation. 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 Remaining disc spaces are well-maintained. Moderate facet arthropathy is seen at most levels bilaterally. Atlantoaxial articulation is well-maintained. There is no prevertebral soft tissue swelling. Lung apices are clear. There are significant vascular calcifications. CT/CT cervical spine wo con IMPRESSION: 1. No acute intracranial abnormality identified. 2. Degenerative changes of the cervical spine as detailed above, no acute osseous abnormality. Electronically authenticated by: SARAH GILBERT Date: 03/30/2024 19:21
--- NOTE | 2024-03-30 18:06 | CT_ITS ---
The [address] [address] Patient Name: JAY ASH MRN: [id number] date: 1935 Sex: M Assigned Patient Location: ER Current Patient Location: ER Accession/Order Number: [id number] Exam Date: 03/30/2024 17:58 Report Date: 03/30/2024 19:21 At the request of: SHERYL DURAN Procedure: CT head/brain wo con HEAD and cervical spine CT without contrast, 03/30/2024 5:58 PM EDT: CLINICAL HISTORY: Fall, head injury. COMPARISON: None available. TECHNIQUE: Axial noncontrast CT imaging of the head and cervical spine was performed. Additional reformatted sagittal and coronal projections were also obtained. Dose reduction techniques were achieved by using automated exposure control and/or adjustment of mA and/or kV according to patient size and/or use of iterative reconstruction technique. FINDINGS: Head CT Ventricular and sulcal size is normal for the patient's age. No areas of abnormal attenuation are identified. There is no mass effect, midline shift or intracranial hemorrhage. There is no evidence of acute infarction. There are no extra axial fluid collections. Visualized paranasal sinuses, mastoid air cells and orbital contents are unremarkable. Cervical spine CT Bones are diffusely demineralized. There is no acute fracture or subluxation. 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 Remaining disc spaces are well-maintained. Moderate facet arthropathy is seen at most levels bilaterally. Atlantoaxial articulation is well-maintained. There is no prevertebral soft tissue swelling. Lung apices are clear. There are significant vascular calcifications. CT/CT head/brain wo con IMPRESSION: 1. No acute intracranial abnormality identified. 2. Degenerative changes of the cervical spine as detailed above, no acute osseous abnormality. Electronically authenticated by: SARAH GILBERT Date: 03/30/2024 19:21
== END 2024-03-30 19:50 | disposition home or self-care (01) ==
PROVIDERS: Emergency Provider Student in an Organized Health Care Education/Training Program; PCP Family Medicine
DX: S09.8XXA Other specified injuries of head, initial encounter (principal); W11.XXXA Fall on and from ladder, initial encounter
CPT/HCPCS: 70450; 72125; 99284

== ENCOUNTER 2024-08-01 08:32 | Outpatient (OUT) | payer MEDICARE, SELFPAY ==
[2024-08-01 08:35] LABS: Basophils Absolute Auto 0.1 10^3/uL (0.0-0.1); Basophils Percent Auto 1.2 % (0.2-2.0); Eosinophils Absolute Auto 0.3 10^3/uL (0.0-0.7); Eosinophils Percent Auto 3.9 % (0.9-7.0); Hemoglobin 14.1 g/dL (14.0-18.0); Immature Granulocytes Abs Auto 0.01 10^3/uL (0.00-0.03); Immature Granulocytes Pct Auto 0.1 % (0.0-0.5); Lymphocytes Absolute Auto 2.8 10^3/uL (1.2-3.8); Lymphocytes Percent Auto 34.2 % (20.5-60.0); Mean Corpuscular HGB Conc 32.8 g/dL (29.9-35.2); Mean Corpuscular Hemoglobin 30.1 pg (25.9-34.0); Mean Corpuscular Volume 91.9 fL (80.0-94.0); Mean Platelet Volume 10.5 fL (9.5-13.5); Monocytes Absolute Auto 0.6 10^3/uL (0.3-0.8); Monocytes Percent Auto 7.5 % (1.7-12.0); Neutrophils Absolute Auto 4.3 10^3/uL (1.4-6.5); Neutrophils Percent Auto 53.1 % (43.0-75.0); Platelet Count 218 10^3/uL (150-450); Red Blood Count 4.68 10^6/uL (4.70-6.10); Red Cell Distribution Width 13.4 % (11.0-15.0)
--- NOTE | 2024-08-01 08:35 | US_ITS ---
The [address] [address] Patient Name: JAY ASH MRN: [id number] date: 1935 Sex: M Assigned Patient Location: [place] Current Patient Location: Accession/Order Number: [id number] Exam Date: 08/01/2024 08:40 Report Date: 08/02/2024 07:27 At the request of: MOON HARPER Procedure: US right upper quadrant EXAM: US right upper quadrant HISTORY: Right Upper Quadrant Abdominal Pain COMPARISON: None. TECHNIQUE: Grayscale and color FINDINGS: The liver is normal in size, contour and echotexture measuring 15.6 cm in length. No focal hepatic mass. Hepatopedal flow in the main portal vein with velocity of 29 cm/s. The gallbladder is normal in size. The wall measures 1.9 mm. Common bile duct measures 1.6 mm. Negative sonographic Mcgee sign. The pancreas is poorly visualized The right kidney is normal measuring 9.8 x 4.8 x 4.9 cm US/US right upper quadrant IMPRESSION: No acute abnormality Electronically authenticated by: SABI PAZ Date: 08/02/2024 07:27
--- OUTSIDE RECORDS SUMMARY | 2024-08-01 08:44 | XMS_ITS | CCD ---
Author Organization [facility] Care Team Providers Care Shredder Operator Name Role Phone Moon Harper Unavailable Unavailable Unavailable Moon Hraper Primary Care Physician Lenny Armando Unavailable [phone] Ada Barnes Unavailable MD Moon Harper Primary Care Provider TYLER Starks Other Provider Unavailable DO Rowena Swanson Other Provider MD Alka Costello Other Provider MD Macario Corona Other Provider MD Sadie Parr Other Provider MD Robert Davenport Other Provider RAMAN Bill Other Provider MD Naila Modi Other Provider MD Ludviina Solitarioammed [facility] [place] Other Provider MD hCarity Mg Other Provider MD Shobha Junior Admit Provider MD Patsy Smith Attending Provider [phone] MD Christ Ansari Emergency Provider MD Lidia Borja Admit Provider MD Lidia Borja Attending Provider [phone] MD Moon Harper Primary Care Provider [phone] MD Macario Corona Attending Provider MD Moon Harper Primary Care Provider [phone] MD Macario Corona Attending Provider MEREDITH ., [...] Unavailable MD Moon Harper Primary Care Provider [phone] MD Macario Corona Attending Provider MD [...] Dr. Moon Polo Primary Care Unavail able MD Moon Harper Primary Care Provider MD Macario Corona Attending Provider Moon Harper MD Primary Care Provider [phone] MACARIO SWANSON Attending Unavailable MOON HARPER Primary Care Unavailable MD Moon Harper Primary Care Provider [phone] MD Macario Corona Attending Provider MD Moon Harper Primary Care Provider [phone] MD Macario Corona Attending Provider Macario Corona Admitting Unavail able Hoy, Moon [...] Unavail able Macario Corona Attending Unavail able Hoy, Moon M Primary Care Unavailable Macario Corona Admitting Unavail able Moon Harper Primary Care Unavailable Macario Corona Admitting Unavail able Macario Corona Attending Unavail able KendallMacario florence Admitting Unavail able Moon Harper Primary Care Unavailable Macario Corona Attending Unavail able Macario Corona Admitting Unavail able Moon Harper Primary Care Unavailable Macario Corona Attending Unavail able Macario Corona Admitting Unavail able Moon Harper Primary Care Unavailable Macario Corona Attending Unavail able MACARIO SWANSON Referring Unavailable MOON HARPER Primary Care Unavailable Allergies Allergy Classification Reported Allergen(s) Allergy Type Date of Onset Reaction(s) Facility (20 sources) Ciprofloxacin; Translations: [Cipro] Drug Allergy 3 [facility] (20 sources) Penicillins; Translations: [Penicillins] Allergy to drug (finding) 2 Rash, Unknown Reaction [facility] (4 sources) Bee/Wasp/Ant venom Drug allergy hives, Unknown [facility] [employer] Other (1 source) Isopropyl Alcohol; Translations: [isopropyl alcohol topical] Drug Allergy intolerance [facility] Comment on above: Pt recovering alcoho lic. (5 sources) Penicillin; Translations: [penicillin] Drug Allergy hives, Unknown [employer] Other (3 sources) Alcohol Propensity to adverse reactions Unknown [facility] [employer] Other (13 sources) bee venom protein (honey bee); Translations: [bee venom protein (honey bee)] Allergy to substance 2 Swelling of Lip/Tongue/Thr oat [facility] (3 sources) Penicillins Drug Allergy 3 [facility] Work Phone: (3 sources) Ciprofloxacin; Translations: [CIPROFLOXACIN] Drug Allergy 2 [facility] 3 Repository (1 source) Penicillins Drug allergy (disorder) 2 [facility] Repository (1 source) alcohol Drug allergy (disorder) [...] 07, 2022 11:00pm Dextromethorphan (1 source) Uncompetitive F-tgcdxk-X-aspartat e Receptor Antagonist, Sigma-1 Agonist Start: 11-01-2019 [...] MG PO Daily May 02, 2019 11:00pm [facility] Active aspirin 81 mg delayed release oral [...] qMonth, # 10 mL, Refills(s) 3, Pharmacy: [facility], 177, cm, 05/31/20 8:16:00 EDT, Height/Length Dosing, [...] Refill(s) 1, [facility] to foot & [facility], [facility] [place] [address], 177, cm, 11/01/19 15:36:00 EST, Height/Length [...] Start: 05-07-2022 take 2 tablets by mo [facility] once daily Metoprolol Succinate (Toprol Xl) 50 [...] adjusted. Start: 11-07-2021 take 1 tablet by [facility] twice daily Metoprolol Tartrate 25 MG Oral [...] 454 gram, Refill(s) 1, to affected area, [facility] [place],, 177, cm, 12/04/19 10:28:00 [...] Coronary arteriosclerosis; Translations: [Atherosclerotic heart disease of [place] coronary artery without angina pectoris] Onset: 3 [...] circulatory and respiratory systems] 08-11-2023 Episodic Other ear and sense organ disorders [...] Da te Episodic/Chronic Other aftercare (1 source) residential (current) use of anticoagulants; Translations: [SNF CURRNT USE ANTICOAGULANTS] Onset: 07-03-2022 Episodic Other aftercare (1 source) Other snf (current) drug therapy; Translations: [OTH SNF CURRENT DRUG THERAPY] Onset: 07-03-2022 Episodic Other circulatory disease (4 sources) Other specified symptoms and signs involving the circulatory and respiratory systems; Translations: [Other specified symptoms and signs involving the circulatory and respiratory systems] Onset: 08-11-2023 Episodic Other disorders of stomach and duodenum [...] Test Name Value Interpretation Reference Range Facility [facility] US CAROTID ARTERY DUPLE X BILATERALon 09-29-2023 [facility] CAROTID ARTERY DUPLEX BILATERAL [address], [address], [place] [address] Vascular Lab Report [facility] US CAROTID ARTERY DUPLEX BILATERAL Patient Name: MACARIO ASH Reading Physician: [id number] Alka Costello MD, [facility] Study Date: 09/29/2023 Ordering Provider: [id number] MACARIO SWANSON MRN/PID: [id number] Fellow: Technologist: Verona Guaman RDCS, T Date of /Age: 5 1935 / years Technologist 2: Gender: M Admission Status: Outpatient Location Performed: [facility] Diagnosis/ICD: Essential primary hypertension-I10; 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; Other specified symptoms and signs involving the circulatory and respiratory systems-R09.89 Indication: Bilateral Carotid Bruit, HTN, Hyperlipidemia, Atrial Fibrillation, CAD, Loop Recorder Implant, [place]-2021 CPT Codes: 51428 Cerebrovascular Carotid Duplex scan complete CONCLUSIONS: Right [...] cm/s Right Left ICA/CCA Ratio 1.7 1.0 [id number] Alka Costello MD, FACC Final Normal [facility] INSULINon 02-18-2023 Insulin 38.1 uIU/mL Critically high 2.6-24.9 [facility] Comment on above: Performed By: #### I NSULIN #### [facility] [address] [place] [address] Dr. Bal Stallings BNPon 02-17-2023 Natriuretic peptide B (Bld) [Mass/Vol] 766.0 pg/mL Normal <=1,800.0 [facility] Comment on above: Performed By: #### C MP, HSTROPN #### [facility] [address] [place] [address] Dr. Bal Stallings CBC AUTO DIFFon 02-17-2023 BASO # 0.1 103/ul Normal 0.0-0.1 [facility] Comment on above: Performed By: #### C BC #### [facility] [address] [place] [address] Dr. Bal Stallings Basophils/100 WBC (Bld) 0.9 % Normal 0.2-2.0 [facility] Comment on above: Performed By: #### C BC #### [facility] [address] [place] [address] Dr. Bal Stallings EO # 0.1 103/ul Normal 0.0-0.7 [facility] Comment on above: Performed By: #### C BC #### [facility] [address] [place] [address] Dr. Bal Stallings Eosinophils/100 WBC (Bld) 1.4 % Normal 0.9-7.0 [facility] Comment on above: Performed By: #### C BC #### [facility] [address] [place] [address] Dr. Bal Stallings Erythrocyte distribution width (RBC) [Ratio] 13.8 % Normal 11.0-15.0 [facility] Comment on above: Performed By: #### C BC #### [facility] [address] [place] [address] Dr. Bal Stallings Hematocrit (Bld) [Volume fraction] 42.2 % Normal 42.0-54.0 [facility] Comment on above: Performed By: #### C BC #### [facility] [address] [place] [address] Dr. Bal Stallings Hemoglobin (Bld) [Mass/Vol] 13.9 g/dL Critically low 14.0-18.0 [facility] Comment on above: Performed By: #### C BC #### [facility] [address] [place] [address] Dr. Bal Stallings IG # 0.02 10e3/ul Normal 0.00-0.03 [facility] Comment on above: Performed By: #### C BC #### [facility] [address] [place] [address] Dr. Bal Stallings IG % 0.2 % Normal 0.0-0.5 [facility] Comment on above: Performed By: #### C BC #### [facility] [address] [place] [address] Dr. Bal Stallings LYMPH # 2.0 103/ul Normal 1.2-3.8 [facility] Comment on above: Performed By: #### C BC #### [facility] [address] [place] [address] Dr. Bal Stallings Lymphocytes/100 WBC (Bld) 21.1 % Normal 20.5-60.0 [facility] Comment on above: Performed By: #### C BC #### [facility] [address] [place] [address] Dr. Bal Stallings MANUAL DIFF REQ NO Normal [facility] Comment on above: Performed By: #### C BC #### [facility] [address] [place] [address] Dr. Bal Stallings MCH (RBC) [Entitic mass] 30.8 pg Normal 25.9-34.0 [facility] Comment on above: Performed By: #### C BC #### [facility] [address] [place] [address] Dr. Bal Stallings MCHC (RBC) [Mass/Vol] 32.9 g/dL Normal 29.9-35.2 [facility] Comment on above: Performed By: #### C BC #### [facility] [address] [place] [address] Dr. Bal Stallings MCV (RBC) [Entitic vol] 93.6 fL Normal 80.0-94.0 [facility] Comment on above: Performed By: #### C BC #### [facility] [address] [place] [address] Dr. Bal Stallings MONO # 0.5 103/ul Normal 0.3-0.8 [facility] Comment on above: Performed By: #### C BC #### [facility] [address] [place] [address] Dr. Bal Stallings Monocytes/100 WBC (Bld) 5.2 % Normal 1.7-12.0 [facility] Comment on above: Performed By: #### C BC #### [facility] [address] [place] [address] Dr. Bal Stallings NEUT # 6.6 103/ul Critically high 1.4-6.5 [facility] Comment on above: Performed By: #### C BC #### [facility] [address] [place] [address] Dr. Bal Stallings Neutrophils/100 WBC (Bld) 71.2 % Normal 43.0-75.0 [facility] Comment on above: Performed By: #### C BC #### [facility] [address] [place] [address] Dr. Bal Stallings Platelet mean volume (Bld) [Entitic vol] 10.6 fL Normal 9.5-13.5 [facility] Comment on above: Performed By: #### C BC #### [facility] [address] [place] [address] Dr. Bal Stallings PLT 245 103/ul Normal 150-450 [facility] Comment on above: Performed By: #### C BC #### [facility] [address] [place] [address] Dr. Bal Stallings RBC 4.51 106/ul Critically low 4.70-6.10 [facility] Comment on above: Performed By: #### C BC #### [facility] [address] [place] [address] Dr. Bal Stallings WBC 9.3 103/ul Normal 4.0-11.0 [facility] Comment on above: Performed By: #### C BC #### [facility] [address] [place] [address] Dr. Bal Stallings FREE THYROXINE INDEX T7on FTI 2.26 Normal 1.30-4.50 [facility] Comment on above: Performed By: #### C JAZZY, HSTROPN #### [facility] [address] [place] [address] Dr. Bal Stallings T3U 31.0 % Critically low 33.0-40.0 [facility] Comment on above: Performed By: #### C MP, HSTROPN #### [facility] [address] [place] [address] Dr. Bal Stallings T4 [Mass/Vol] 7.30 ug/dL Normal 4.50-12.10 [facility] Comment on above: Performed By: #### C MP, HSTROPN #### [facility] [address] [place] [address] Dr. Bal Stallings GLYCOHEMOGLOBIN A1Con 2022 ADA RECOMMENDATION SEE BELOW Normal [facility] Comment on above: Result Comment: ADA RECOMMENDED LIMIT 4.0 - 6.0 ADA THERAPEUTIC TARGET < 7.0 ACTION SUGGESTED > 7.0 Performed By: #### C JAZZY HSTROPN #### [facility] [address] [place] [address] Dr. Bal Stallings Glucose [Mass/Vol] 140 mg/dL Normal [facility] Comment on above: Performed By: #### C JAZZY HSTROPN #### [facility] [address] [place] [address] Dr. Bal Stallings HbA1c (Bld) [Mass fraction] 6.5 % Critically high 4.5-6.2 [facility] Comment on above: Performed By: #### C JAZZY HSTROPN #### [facility] [address] [place] [address] Dr. Bal Stallings PROF 14(COMP METB)on 023 Albumin [Mass/Vol] 3.9 g/dL Normal 3.4-5.0 [facility] Comment on above: Performed By: #### C VDTBH #### [facility] [address] [place] [address] Dr. Bal Stallings Albumin/Globulin [Mass ratio] 1.2 {ratio} Normal [facility] Comment on above: Performed By: #### C VDTBH #### [facility] [address] [place] [address] Dr. Bal Stallings ALP [Catalytic activity/Vol] 96 U/L Normal 46-116 [facility] Comment on above: Performed By: #### C VDTBH #### [facility] [address] [place] [address] Dr. Bal Stallings ALT [Catalytic activity/Vol] 28 U/L Normal 16-63 [facility] Comment on above: Performed By: #### C VDTBH #### [facility] [address] [place] [address] Dr. Bal Stallings Anion gap [Moles/Vol] 14.7 mmol/L Normal [facility] Comment on above: Performed By: #### C VDTBH #### [facility] [address] [place] [address] Dr. Bal Stallings AST [Catalytic activity/Vol] 15 U/L Normal 15-37 [facility] Comment on above: Performed By: #### C VDTBH #### [facility] [address] [place] [address] Dr. Bal Stallings Bilirubin [Mass/Vol] 0.6 mg/dL Normal 0.2-1.0 [facility] Comment on above: Performed By: #### C VDTBH #### [facility] [address] [place] [address] Dr. Bal Stallings Calcium [Mass/Vol] 9.1 mg/dL Normal 8.5-10.1 [facility] Comment on above: Performed By: #### C VDTBH #### [facility] [address] [place] [address] Dr. Bal Stallings Chloride [Moles/Vol] 102 mmol/L Normal 98-107 [facility] Comment on above: Performed By: #### C VDTBH #### [facility] [address] [place] [address] Dr. Bal Stallings CO2 [Moles/Vol] 25.7 mmol/L Normal 21.0-32.0 [facility] Comment on above: Performed By: #### C VDTBH #### [facility] [address] [place] [address] Dr. Bal Stallings Creatinine [Mass/Vol] 1.33 mg/dL Critically high 0.70-1.30 [facility] Comment on above: Performed By: #### C VDTBH #### [facility] [address] [place] [address] Dr. Bal Stallings EGFR-AF QATARI >60 Normal >=60 [facility] Comment on above: Performed By: #### C VDTBH #### [facility] [address] [place] [address] Dr. Bal Stallings EGFR-NON AF QATARI 51 mL/min/1.73m2 Critically low >=60 [facility] Comment on above: Performed By: #### C VDTBH #### [facility] [address] [place] [address] Dr. Bal Stallings Globulin (S) [Mass/Vol] 3.3 g/dL Normal [facility] Comment on above: Performed By: #### C VDTBH #### [facility] [address] [place] [address] Dr. Bal Stallings Glucose [Mass/Vol] 112 mg/dL Critically high 74-106 [facility] Comment on above: Performed By: #### C VDTBH #### [facility] [address] [place] [address] Dr. Bal Stallings Potassium [Moles/Vol] 4.4 mmol/L Normal 3.5-5.1 [facility] Comment on above: Performed By: #### C VDTBH #### [facility] [address] [place] [address] Dr. Bal Stallings Protein [Mass/Vol] 7.2 g/dL Normal 6.4-8.2 [facility] Comment on above: Performed By: #### C VDTBH #### [facility] [address] [place] [address] Dr. Bal Stallings Sodium [Moles/Vol] 138 mmol/L Normal 136-145 [facility] Comment on above: Performed By: #### C VDTBH #### [facility] [address] [place] [address] Dr. Bal Stallings Urea nitrogen [Mass/Vol] 19.0 mg/dL Critically high 7.0-18 .0 [facility] Comment on above: Performed By: #### C VDTBH #### [facility] [address] [place] [address] Dr. Bal Stallings Urea nitrogen/Creatinine [Mass ratio] 14.3 mg/mg Normal [facility] Comment on above: Performed By: #### C VDTBH #### [facility] [address] [place] [address] Dr. Bal Stallings TSHon 02-17-2023 TSH 1.744 uIU/mL Normal 0.358-3.740 [facility] Comment on above: Performed By: #### C VDTBH #### [facility] [address] [place] [address] Dr. Bal Stallings VITAMIN D 25 OHon 02-17-2023 VIT D 25-OH 18.4 ng/mL Normal [facility] Comment on above: Performed By: #### C JAZZY, HSTROPN #### [facility] [address] [place] [address] [address] Bal Stallings VIT D RANGES SEE BELOW Normal [facility] Comment on above: Result Comment: <20 ng/mL Vit D deficient 20 - <30 ng/mL Vit D insufficient 30 - 100 ng/mL Vit D sufficient >100 ng/mL Potential Toxicity Performed By: #### C JAZZY, HSTROPN #### [facility] [address] [place] [address] [address] Bal Stallings Covid-19 PCR ([facility])on 12-17 SARS-CoV-2 (COVID-19) RNA MERLYN+probe Ql (Unsp spec) Not detected Normal NOT DETECTED [facility] Comment on above: Result Comment: This test is not yet approved or cleared by the [place] FDA. When there are no FDA-approved or cleared tests available, and other criteria are met, FDA can make tests available under an emergency access mechanism called an Emergency Use Authorization (EUA). The EUA for this test is supported by the [place] of Health and Human Service's (HHS's) declaration [...] SARS-CoV-2. Performed By: #### C VDTBH #### [facility] [address] [place] [address] Dr. Bal Stallings INFLUENZA A AND B AGon 01-04 INFLUANEGH SEE BELOW Normal [facility] Comment on above: Result Comment: Nega tive for Flu A protein angiten. Infection due to Flu A cannot be ruled out. Flu A angiten in the sample may be below the detection limit of the test. Performed By: #### I NFLUAB #### [facility] [address] [place] [address] Dr. Bal Stallings INFLUBNEGH SEE BELOW Normal [facility] Comment on above: Result Comment: Nega tive for Flu B protein antigen. Infection due to Flu B cannot be ruled out. Flu B antigen in the sample may be below the detection limit of the test. Performed By: #### I NFLUAB #### [facility] [address] [place] [address] Dr. Bal Stallings INFLUENZA A AG Negative Normal NEGATIVE SEE COMMENT [facility] Comment on above: Performed By: #### I NFLUAB #### [facility] [address] [place] [address] Dr. Bal Stallings INFLUENZA B AG Negative Normal NEGATIVE SEE COMMENT [facility] Comment on above: Performed By: #### I NFLUAB #### [facility] [address] [place] [address] Dr. Bal Stallings SYMPTOMATIC COVID-19 ANTIGEN on 01-04-2023 EUA Statement SEE BELOW Normal [facility] Comment on above: Result Comment: This [...] sooner. Performed By: #### C VDTBH #### [facility] [address] [place] [address] Dr. Bal Stallings SARS-CoV-2 (COVID-19) RNA MERLYN+probe Ql (Unsp spec) Negative Normal NEGATIVE [facility] Comment on above: Performed By: #### C [facility] #### [facility] [address] [place], [place] [address] Dr. Bal Stallings Office Visit (Cardiology)on 12-09-2022 Follow-up visit Diagnoses/Problems Assessed Coronary artery disease involving [place] coronary artery of [place] heart without angina pectoris (414.01) (I25.10) History of [place] (myocardial infarction) (412) (I25.2) PVD (peripheral vascular [...] Weight Tips; Status:Complete - Retrospective Authorization; Done: [id number] Some eating tips that can help you lose weight.; Status:Complete - Retrospective Authorization; Done: [id number] SocHx: Former smoker Tobacco Use Screening; Status:Complete; Done: [id number] Unlinked Stop: Eliquis 5 MG Oral Tablet [...] well. 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 Fry with preserved LV function. He has underlying hypertension, obesity and paroxysmal atrial fibrillation diagnosed during his [place] with successful cardioversion but no further episodes [...] his daughter this morning in regards to [id number] score, history of transient atrial fib and [...] Former smoker (more content not included)... Normal Corso12 Tobacco Screening.on 023 Adult depression screening assessment No [facility] Picur[employer] DO Work Phone: Fall risk assessment a) No falls within the last year [facility] Pic[employer] DO Work Phone: Tobacco use status [facility] b) [facility] Work Phone: Office Visit (Cardiology)on 08-03-2022 Follow-up visit Diagnoses/Problems Assessed Coronary artery disease involving [place] coronary artery of [place] heart without angina pectoris (414.01) (I25.10) Atrial [...] April 2022. I will need to contact [place] [facility] to have report sent to [facility]. He otherwise denies any type of exertional [...] MG Or (more content not included)... Normal Corso12 Tobacco Screening.on 022 Fall risk assessment a) No falls within the last year [facility] [place] [address] DO Work Phone: Tobacco use status CPHS b) No M [facility] [employer] [place] [address] DO Work Phone: Covid-19 PCR (CVDTB)on 07-18 SARS-CoV-2 (COVID-19) RNA MERLYN+probe Ql (Unsp spec) Not detected Normal NOT DETECTED [facility] Comment on above: Result Comment: This test is not yet approved or cleared by the [place] FDA. When there are no FDA-approved or cleared tests available, and other criteria are met, FDA can make tests available under an emergency access mechanism called an Emergency Use Authorization (EUA). The EUA for this test is supported by the [place] Work[employer] of Health and Human Service's (HHS's) declaration [...] Performed By: #### C JAZZY, PADMINI #### [facility] [address] [place] [address] Dr. Bal Stallings Office Visit (Cardiology)on 07-06-2022 [...] contact the office if new symptoms arise. 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 Normal [place]12 Tobacco Screening.on 022 Fall risk assessment a) No falls within the last year [facility] [employer] [place] [address] DO Work Phone: Tobacco use status CPHS b) No M [facility] [employer] [place] [address] DO Work Phone: CBC AUTO DIFFon 07-01-2022 BASO # 0.1 103/ul Normal 0.0-0.1 [facility] Comment on above: Performed By: #### C BC #### [facility] [address] [address] [address] Bal Stallings Basophils/100 WBC (Bld) 1.0 % Normal 0.2-2.0 [facility] Comment on above: Performed By: #### C BC #### [facility] [address] [place] [address] Dr. Bal Stallings EO # 0.1 103/ul Normal 0.0-0.7 [facility] Comment on above: Performed By: #### C BC #### [facility] [address] [place] [address] Dr. Bal Stallings Eosinophils/100 WBC (Bld) 1.5 % Normal 0.9-7.0 [facility] Comment on above: Performed By: #### C BC #### [facility] [address] [place] [address] Dr. Bal Stallings Erythrocyte distribution width (RBC) [Ratio] 13.7 % Normal 11.0-15.0 [facility] Comment on above: Performed By: #### C BC #### [facility] [address] [place] [address] Dr. Bal Stallings Hematocrit (Bld) [Volume fraction] 38.9 % Critically low 42.0-54.0 [facility] Comment on above: Performed By: #### C BC #### [facility] [address] [place] [address] Dr. Bal Stallings Hemoglobin (Bld) [Mass/Vol] 13.1 g/dL Critically low 14.0-18.0 [facility] Comment on above: Performed By: #### C BC #### [facility] [address] [place] [address] Dr. Bal Stallings IG # 0.01 10e3/ul Normal 0.00-0.03 [facility] Comment on above: Performed By: #### C BC #### [facility] [address] [place] [address] Dr. Bal Stallings IG % 0.1 % Normal 0.0-0.5 [facility] Comment on above: Performed By: #### C BC #### [facility] [address] [place] [address] Dr. Bal Stallings LYMPH # 2.4 103/ul Normal 1.2-3.8 [facility] Comment on above: Performed By: #### C BC #### [facility] [address] [place] [address] Dr. Bal Stallings Lymphocytes/100 WBC (Bld) 30.0 % Normal 20.5-60.0 [facility] Comment on above: Performed By: #### C BC #### [facility] [address] [place] [address] Dr. Bal Stallings MANUAL DIFF REQ NO Normal [facility] Comment on above: Performed By: #### C BC #### [facility] [address] [place] [address] Dr. Bal Stallings MCH (RBC) [Entitic mass] 31.4 pg Normal 25.9-34.0 [facility] Comment on above: Performed By: #### C BC #### [facility] [address] [place] [address] Dr. Bal Stallings MCHC (RBC) [Mass/Vol] 33.7 g/dL Normal 29.9-35.2 [facility] Comment on above: Performed By: #### C BC #### [facility] [address] [place] [address] Dr. Bal Stallings MCV (RBC) [Entitic vol] 93.3 fL Normal 80.0-94.0 [facility] Comment on above: Performed By: #### C BC #### [facility] [address] [place] [address] Dr. Bal Stallings MONO # 0.6 103/ul Normal 0.3-0.8 [facility] Comment on above: Performed By: #### C BC #### [facility] [address] [place] [address] Dr. Bal Stallings Monocytes/100 WBC (Bld) 7.8 % Normal 1.7-12.0 [facility] Comment on above: Performed By: #### C BC #### [facility] [address] [place] [address] Dr. Bal Stallings NEUT # 4.8 103/ul Normal 1.4-6.5 [facility] Comment on above: Performed By: #### C BC #### [facility] [address] [address] [address] Bal Stallings Neutrophils/100 WBC (Bld) 59.6 % Normal 43.0-75.0 [facility] Comment on above: Performed By: #### C BC #### [facility] [address] [address] [address] Bal Stallings Platelet mean volume (Bld) [Entitic vol] 10.7 fL Normal 9.5-13.5 [facility] Comment on above: Performed By: #### C BC #### [facility] [address] [place] [address] Dr. Bal Stallings PLT 213 103/ul Normal 150-450 [facility] Comment on above: Performed By: #### C BC #### [facility] [address] [place] [address] Dr. Bal Stallings RBC 4.17 106/ul Critically low 4.70-6.10 [facility] Comment on above: Performed By: #### C BC #### [facility] [address] [place] [address] Dr. Bal Stallings WBC 8.1 103/ul Normal 4.0-11.0 [facility] Comment on above: Performed By: #### C BC #### [facility] [address] [place] [address] HEAD WO CONon [...] by: MARTY KHAN Date: 2022-07-01 18:44 Normal [facility] PROF 14(COMP METB)on 022 Albumin [Mass/Vol] 3.9 g/dL Normal 3.4-5.0 [facility] Comment on above: Performed By: #### C MP, HSTROPN #### [facility] [address] [address] [address] Bal Stalligns Albumin/Globulin [Mass ratio] 1.3 {ratio} Normal [facility] Comment on above: Performed By: #### C MP, HSTROPN #### [facility] [address] [address] [address] Bal Stallings ALP [Catalytic activity/Vol] 81 U/L Normal 46-116 [facility] Comment on above: Performed By: #### C MP, HSTROPN #### [facility] [address] [address] [address] Bal Stallings ALT [Catalytic activity/Vol] 45 U/L Normal 16-63 [facility] Comment on above: Performed By: #### C MP, HSTROPN #### [facility] [address] [address] [address] Bal Stallings Anion gap [Moles/Vol] 13.8 mmol/L Normal [facility] Comment on above: Performed By: #### C MP, HSTROPN #### [facility] [address] [address] [address] Bal Stallings AST [Catalytic activity/Vol] 27 U/L Normal 15-37 [facility] Comment on above: Performed By: #### C MP, HSTROPN #### [facility] [address] [address] [address] Bal Stallings Bilirubin [Mass/Vol] 0.7 mg/dL Normal 0.2-1.0 [facility] Comment on above: Performed By: #### C MP, HSTROPN #### [facility] [address] [place] [address] Dr. Bal Stallings Calcium [Mass/Vol] 8.9 mg/dL Normal 8.5-10.1 [facility] Comment on above: Performed By: #### C MP, HSTROPN #### [facility] [address] [place] [address] Dr. Bal Stallings Chloride [Moles/Vol] 105 mmol/L Normal 98-107 [facility] Comment on above: Performed By: #### C JAZZY, HSTROPN #### [facility] [address] [place] [address] Dr. Bal Stallings CO2 [Moles/Vol] 23.7 mmol/L Normal 21.0-32.0 [facility] Comment on above: Performed By: #### C JAZZY, HSTROPN #### [facility] [address] [place] [address] Dr. Bal Stallings Creatinine [Mass/Vol] 1.28 mg/dL Normal 0.70-1.30 [facility] Comment on above: Performed By: #### C JAZZY, HSTROPN #### [facility] [address] [place] [address] Dr. Bal Stallings EGFR-AF QATARI >60 Normal >=60 [facility] Comment on above: Performed By: #### C MP, HSTROPN #### [facility] [address] [place] [address] Dr. Bal Stallings EGFR-NON AF QATARI 53 mL/min/1.73m2 Critically low >=60 [facility] Comment on above: Performed By: #### C MP, HSTROPN #### [facility] [address] [place] [address] Dr. Bal Stallings Globulin (S) [Mass/Vol] 3.1 g/dL Normal [facility] Comment on above: Performed By: #### C MP, HSTROPN #### [facility] [address] [address] [address] Bal Stallings Glucose [Mass/Vol] 106 mg/dL Normal 74-106 [facility] Comment on above: Performed By: #### C MP, HSTROPN #### [facility] [address] [place] [address] Dr. Bal Stallings Potassium [Moles/Vol] 4.5 mmol/L Normal 3.5-5.1 [facility] Comment on above: Performed By: #### C MP, HSTROPN #### [facility] [address] [place] [address] Dr. Bal Stallings Protein [Mass/Vol] 7.0 g/dL Normal 6.4-8.2 [facility] Comment on above: Performed By: #### C MP, HSTROPN #### [facility] [address] [place] [address] Dr. Bal Stallings Sodium [Moles/Vol] 138 mmol/L Normal 136-145 [facility] Comment on above: Performed By: #### C MP, HSTROPN #### [facility] [address] [place] [address] Dr. Bal Stallings Urea nitrogen [Mass/Vol] 26.0 mg/dL Critically high 7.0-18 .0 [facility] Comment on above: Performed By: #### C MP, HSTROPN #### [facility] [address] [place] [address] Dr. Bal Stallings Urea nitrogen/Creatinine [Mass ratio] 20.3 mg/mg Normal [facility] Comment on above: Performed By: #### C MP, HSTROPN #### [facility] [address] [place] [address] Dr. Bal Stallings TROPONIN, HIGH SENSITIVITYon 07-01-2022 HSTROP 39.7 pg/mL Normal 4.0-76.1 [facility] Comment on above: Result Comment: CUT- OFF POINTS HAVE BEEN ESTABLISHED BASED ON THE FOURTH UNIVERSAL DEFINITIONS OF MYOCARDIAL INFARCTION. THE UPPER REFERENCE LIMIT (URL) OF TROPONIN, DEFINED THE 99TH PERCENTILE OF cTnI DISTRIBUTION IN A REFERENCE POPULATION, HAS BEEN CONFIRMED THE DECISION THRESHOLD FOR [place] DIAGNOSIS. Performed By: #### C JAZZY, HSTROPN #### [facility] [address] [address] [address] Bal Stallings XR CHEST 1 Von [...] [place] Date: 2022-07-01 17:14 Normal [facility] Tobacco Screening.on 022 Adult depression screening assessment No [facility] [employer] [place] [address] DO Work Phone: Fall risk assessment a) No falls within the last year [facility] [employer] [place] [address] DO Work Phone: Tobacco use status CPHS b) No [facility] [employer] [place] [address] DO Work Phone: Activated partial thrombopla stin time (aPTT) in platelet poor plasma by coagulation aOrdered By: Christ Ansari on 05-07-2022 aPTT Coag (PPP) [Time] 30.8 s 25.1-36.5 [facility] Basophils Auto (Bld) [#/Vol] Ordered By: Christ Ansari on 05-07-2022 Basophils (Bld) [#/Vol] 0.1 10*3/uL 0.0-0.2 [facility] Basophils/100 WBC Auto (Bld) Ordered By: Christ Ansari on 05-07-2022 Basophils/100 WBC (Bld) 1.5 % . [facility] Blood hemoglobin measurement (mass/volume)Ordered By: Christ Ansari on 05-07-2022 Hemoglobin (Bld) [Mass/Vol] 13.8 g/dL 13.0-17.0 [facility] Blood leukocytes automated c ount (number/volume)Ordered By: Christ Ansari on 05-07-2022 WBC (Bld) [#/Vol] 7.1 10*3/uL 4.5-11.0 [facility] COVID-19 Positive/NegativeOr dered By: Christ Ansari on 05-07-2022 SARS-CoV-2 (COVID-19) N gene MERLYN+probe Ql (Resp) Negative Negative [facility] Comment on above: Testing for SARS-CoV -2 by RT-PCR This test was developed and its performance characteristics determined by [email or web address] ([employer]) and validated at the [facility]. This test has not been FDA cleared [...] (COVID-19) Ag IA.rapid Ql (Resp) Negative Negative [facility] Comment on above: This is a duplicate [employer] SARS Antigen (RUBÉN) result to be used for statistical tracking purpose only. Creatine kinase [Enzymatic a ctivity/volume] in Serum or PlasmaOrdered By: Christ Ansari on 05-07-2022 CK [Catalytic activity/Vol] 90 U/L 22-269 [facility] Creatinine and Glomerular fi ltration rate.predicted panel (S/P/Bld)Ordered By: Christ Ansari on 05-07-2022 Creatinine [Mass/Vol] 1.17 mg/dL 0.64-1.27 [facility] Eosinophils Auto (Bld) [#/Vo l]Ordered By: Christ Ansari on 05-07-2022 Eosinophils (Bld) [#/Vol] 0.1 10*3/uL 0.0-0.45 [facility] Eosinophils/100 WBC Auto (Bl d)Ordered By: Christ Ansari on 05-07-2022 Eosinophils/100 WBC (Bld) 1.3 % . [facility] Erythrocyte distribution wid th Auto (RBC) [Ratio]Ordered By: Christ Ansari on 05-07-2022 Erythrocyte distribution width (RBC) [Ratio] 13.5 % 12.0-14.8 [facility] Estimated glomerular filtrat ion rate (GFR) non- AmericanOrdered By: Christ Ansari on 05-07-2022 GFR/1.73 sq M.predicted among non-blacks MDRD (S/P/Bld) [Vol rate/Area] 59 mL/Min [facility] Hematocrit Auto (Bld) [Volum e fraction]Ordered By: Christ Ansari on 05-07-2022 Hematocrit (Bld) [Volume fraction] 40.3 % 38.8-50.0 [facility] - Chemistry and C hemistry - challengeOrdered By: Christ Ansari on 05-07-2022 Natriuretic peptide B (Bld) [Mass/Vol] 106.0 pg/mL 5-100 [facility] - CoagulationOrde red By: Christ Ansari on 05-07-2022 PT Coag (PPP) [Time] 13.3 s 9.0-12.9 [facility] - Hematology and Cell countsOrdered By: Christ Ansari on 05-07-2022 Nucleated RBC/100 WBC (Bld) [Ratio] 0.1 % 0-0.5 [facility] - Microbiology an d Antimicrobial susceptibilityOrdered By: Christ Ansari on 05-07-2022 SARS-CoV-2 (COVID-19) RNA MERLYN+probe Ql (Unsp spec) N/A [facility] Lymphocytes Auto (Bld) [#/Vo l]Ordered By: Christ Ansari on 05-07-2022 Lymphocytes (Bld) [#/Vol] 1.6 10*3/uL 1.00-4.8 [facility] Lymphocytes/100 WBC Auto (Bl d)Ordered By: Christ Ansari on 05-07-2022 Lymphocytes/100 WBC (Bld) 23.2 % . [facility] MCH Auto (RBC) [Entitic mass ]Ordered By: Christ Ansari on 05-07-2022 MCH (RBC) [Entitic mass] 32.0 pg 27.5-35.2 [facility] MCHC Auto (RBC) [Mass/Vol]Or dered By: Christ Ansari on 05-07-2022 MCHC (RBC) [Mass/Vol] 34.2 g/dL 32.5-35.6 [facility] MCV Auto (RBC) [Entitic vol] Ordered By: Christ Ansari on 05-07-2022 MCV (RBC) [Entitic vol] 93.5 fL 83.5-101 F [facility] Monocytes Auto (Bld) [#/Vol] Ordered By: Christ Ansari on 05-07-2022 Monocytes (Bld) [#/Vol] 0.6 10*3/uL 0.0-0.8 [facility] Monocytes/100 WBC Auto (Bld) Ordered By: Christ Ansari on 05-07-2022 Monocytes/100 WBC (Bld) 8.6 % . [facility] Neutrophils Auto (Bld) [#/Vo l]Ordered By: Christ Ansari on 05-07-2022 Neutrophils (Bld) [#/Vol] 4.6 10*3/uL 1.8-7.7 [facility] Neutrophils/100 WBC Auto (Bl d)Ordered By: Christ Ansari on 05-07-2022 Neutrophils/100 WBC (Bld) 65.4 % . [facility] No Panel InformationOrdered By: Christ Ansari on 05-07-2022 Estimated GFR () > 60 mL/Min [facility] Comment on above: GFR estimated refere nce range: According to KDOQI guidelines, <60 ml/min/1.73m2 is sufficient to diagnose a patient with chronic kidney disease. Pharmacy Creatinine Clearance (Chem 52.05 [facility] SARS Antigen (LFIA) [facility] Platelet mean volume Auto (B ld) [Entitic vol]Ordered By: Christ Ansari on 05-07-2022 Platelet mean volume (Bld) [Entitic vol] 9.5 fL 6.6-10.1 [facility] Platelet poor plasma interna tional normalized ratio (INR) by coagulation assay (relatOrdered By: Christ Ansari on 05-07-2022 INR Coag (PPP) [Relative time] 1.2 {INR} [facility] Comment on above: INR Therapeutic Rang e [...] 05-07-2022 Platelets (Bld) [#/Vol] 178 10*3/uL 150-450 [facility] RBC Auto (Bld) [#/Vol]Ordere d By: Christ Ansari on 05-07-2022 RBC (Bld) [#/Vol] 4.31 10*6/uL 3.90-5.60 [facility] Serum or plasma calcium cain urement (mass/volume)Ordered By: Christ Ansari on 05-07-2022 Calcium [Mass/Vol] 9.5 mg/dL 8.2-10.2 [facility] Serum or plasma chloride vanessa surement (moles/volume)Ordered By: Christ Ansari on 05-07-2022 Chloride [Moles/Vol] 102 mmol/L 95-114 [facility] Serum or plasma creatine kin ase MB (CKMB)/total creatine kinase (CK) ratio by calculaOrdered By: Christ Ansari on 05-07-2022 CK.MB Calc [Catalytic fraction] 3.2 % 0.00-2.50 [facility] Serum or plasma creatine kin ase MB measurement (mass/volume)Ordered By: Christ Ansari on 05-07-2022 CK.MB [Mass/Vol] 2.9 ng/mL 0.6-6.3 [facility] Serum or plasma glucose cain urement (mass/volume)Ordered By: Christ Ansari on 05-07-2022 Glucose [Mass/Vol] 118 mg/dL 70-100 [facility] Comment on above: ADA recommended refe rence range Random Glucose Reference Range is dependent on time and content of last meal. Glucose of more than 200 mg/dL in a nonstressed, ambulatory subject supports the diagnosis of Diabetes Mellitus. Serum or plasma potassium me asurement (moles/volume)Ordered By: Christ Ansari on 05-07-2022 Potassium [Moles/Vol] 3.9 mmol/L 3.5-5.1 [facility] Serum or plasma sodium measu rement (moles/volume)Ordered By: Christ Ansari on 05-07-2022 Sodium [Moles/Vol] 133 mmol/L 136-146 [facility] Serum or plasma total carbon dioxide measurement (moles/volume)Ordered By: Christ Ansari on 05-07-2022 CO2 [Moles/Vol] 22.2 mmol/L 22.0-30.0 [facility] Serum or plasma urea nitroge n measurement (mass/volume)Ordered By: Christ Ansari on 05-07-2022 Urea nitrogen [Mass/Vol] 14 mg/dL 9-23 [facility] Troponin I.cardiac [Mass/vol ume] in Serum or Plasma by High sensitivity methodOrdered By: Lidia Borja on 05-07-2022 Troponin I.cardiac High sensitivity method [Mass/Vol] 13 pg/mL 0-20 [facility] Troponin I.cardiac [Mass/vol ume] in Serum or Plasma by High sensitivity methodOrdered By: Christ Ansari on 05-07-2022 Troponin I.cardiac High sensitivity method [Mass/Vol] 12 pg/mL 0-20 [facility] Albumin [Mass/volume] in Ser um or PlasmaOrdered By: Kel Sparrow on 04-12-2022 Albumin [Mass/Vol] 3.2 g/dL 3.2-5.5 [facility] Basophils Auto (Bld) [#/Vol] Ordered By: Kel Sparrow on 04-12-2022 Basophils (Bld) [#/Vol] 0.1 10*3/uL 0.0-0.2 [facility] Basophils/100 WBC Auto (Bld) Ordered By: Kel Sparrow on 04-12-2022 Basophils/100 WBC (Bld) 1.0 % . F [facility] Blood hemoglobin measurement (mass/volume)Ordered By: Kel Sparrow on 04-12-2022 Hemoglobin (Bld) [Mass/Vol] 13.3 g/dL 13.0-17.0 [facility] Blood leukocytes automated c ount (number/volume)Ordered By: Kel Sparrow on 04-12-2022 WBC (Bld) [#/Vol] 10.6 10*3/uL 4.5-11.0 [facility] Cholesterol [Mass/volume] in Serum or PlasmaOrdered By: Selam Noble on 04-12-2022 Cholesterol [Mass/Vol] 118 mg/dL 140-200 [facility] Comment on above: Chol less than 200 m g/dl low risk Chol 201-239 mg/dl borderline risk Chol 240 mg/dl and greater high risk Cholesterol in LDL Calc [Mas s/Vol]Ordered By: Selam Noble on 04-12-2022 Cholesterol in LDL [Mass/Vol] 53 mg/dL 0-100 [facility] Comment on above: LDL ATP III CLASSIFI CATION LDL less than 100 mg/dL Optimal LDL 100-129 mg/dL Near or above optimal LDL 130-159 mg/dL Borderline high LDL 160-189 mg/dL High LDL greater than 189 mg/dL Very high Cholesterol in VLDL Calc [Ma ss/Vol]Ordered By: Selam Noble on 04-12-2022 Cholesterol in VLDL [Mass/Vol] 8 mg/dL [facility] Creatinine and Glomerular fi ltration rate.predicted panel (S/P/Bld)Ordered By: Kel Sparrow on 04-12-2022 Creatinine [Mass/Vol] 0.98 mg/dL 0.64-1.27 [facility] Eosinophils Auto (Bld) [#/Vo l]Ordered By: Kel Sparrow on 04-12-2022 Eosinophils (Bld) [#/Vol] 0.3 10*3/uL 0.0-0.45 [facility] Eosinophils/100 WBC Auto (Bl d)Ordered By: Kel Sparrow on 04-12-2022 Eosinophils/100 WBC (Bld) 2.7 % . [facility] Erythrocyte distribution wid th Auto (RBC) [Ratio]Ordered By: Kel Sparrow on 04-12-2022 Erythrocyte distribution width (RBC) [Ratio] 13.9 % 12.0-14.8 [facility] Estimated glomerular filtrat ion rate (GFR) non- AmericanOrdered By: Kel Sparrow on 04-12-2022 GFR/1.73 sq M.predicted among non-blacks MDRD (S/P/Bld) [Vol rate/Area] > 60 mL/Min [facility] Globulin Calc (S) [Mass/Vol] Ordered By: Kel Sparrow on 04-12-2022 Globulin (S) [Mass/Vol] 2.7 g/dL [facility] Hematocrit Auto (Bld) [Volum e fraction]Ordered By: Kel Sparrow on 04-12-2022 Hematocrit (Bld) [Volume fraction] 39.2 % 38.8-50.0 [facility] - Hematology and Cell countsOrdered By: Kel Sparrow on 04-12-2022 Nucleated RBC/100 WBC (Bld) [Ratio] 0.1 % 0-0.5 [facility] Lymphocytes Auto (Bld) [#/Vo l]Ordered By: Kel Sparrow on 04-12-2022 Lymphocytes (Bld) [#/Vol] 2.2 10*3/uL 1.00-4.8 [facility] Lymphocytes/100 WBC Auto (Bl d)Ordered By: Kel Sparrow on 04-12-2022 Lymphocytes/100 WBC (Bld) 20.7 % . [facility] MCH Auto (RBC) [Entitic mass ]Ordered By: Kel Sparrow on 04-12-2022 MCH (RBC) [Entitic mass] 31.9 pg 27.5-35.2 [facility] MCHC Auto (RBC) [Mass/Vol]Or dered By: Kel Sparrow on 04-12-2022 MCHC (RBC) [Mass/Vol] 33.9 g/dL 32.5-35.6 [facility] MCV Auto (RBC) [Entitic vol] Ordered By: Kel Sparrow on 04-12-2022 MCV (RBC) [Entitic vol] 93.8 fL 83.5-101 [facility] Monocytes Auto (Bld) [#/Vol] Ordered By: Kel Sparrow on 04-12-2022 Monocytes (Bld) [#/Vol] 0.9 10*3/uL 0.0-0.8 [facility] Monocytes/100 WBC Auto (Bld) Ordered By: Kel Sparrow on 04-12-2022 Monocytes/100 WBC (Bld) 8.8 % . [facility] Neutrophils Auto (Bld) [#/Vo l]Ordered By: Kel Sparrow on 04-12-2022 Neutrophils (Bld) [#/Vol] 7.1 10*3/uL 1.8-7.7 [facility] Neutrophils/100 WBC Auto (Bl d)Ordered By: Kel Sparrow on 04-12-2022 Neutrophils/100 WBC (Bld) 66.8 % . [facility] No Panel InformationOrdered By: Kel Sparrow on 04-12-2022 Estimated GFR () > 60 mL/Min [facility] Comment on above: GFR estimated refere nce range: According to KDOQI guidelines, <60 ml/min/1.73m2 is sufficient to diagnose a patient with chronic kidney disease. Pharmacy Creatinine Clearance (Chem 67.08 [facility] Platelet mean volume Auto (B ld) [Entitic vol]Ordered By: Kel Sparrow on 04-12-2022 Platelet mean volume (Bld) [Entitic vol] 8.7 fL 6.6-10.1 [facility] Platelets Auto (Bld) [#/Vol] Ordered By: Kel Sparrow on 04-12-2022 Platelets (Bld) [#/Vol] 226 10*3/uL 150-450 [facility] Protein [Mass/volume] in Ser um or PlasmaOrdered By: Kel Sparrow on 04-12-2022 Protein [Mass/Vol] 5.9 g/dL 6.1-7.9 [facility] RBC Auto (Bld) [#/Vol]Ordere d By: Kel Sparrow on 04-12-2022 RBC (Bld) [#/Vol] 4.18 10*6/uL 3.90-5.60 [facility] Serum or plasma alanine norris otransferase measurement without P-5'-P (enzymatic activiOrdered By: Kel Sparrow on 04-12-2022 ALT No additional P-5'-P [Catalytic activity/Vol] 22 U/L 10-60 [facility] Serum or plasma albumin/glob ulin mass ratioOrdered By: Kel Sparrow on 04-12-2022 Albumin/Globulin [Mass ratio] 1.2 {ratio} [facility] Serum or plasma alkaline malick sphatase measurement (enzymatic activity/volume)Ordered By: Kel Sparrow on 04-12-2022 ALP [Catalytic activity/Vol] 69 U/L 32-92 [facility] Serum or plasma aspartate am inotransferase measurement (enzymatic activity/volume)Ordered By: Kel Sparrow on 04-12-2022 AST [Catalytic activity/Vol] 61 U/L 10-42 [facility] Serum or plasma calcium cain urement (mass/volume)Ordered By: Kel Sparrow on 04-12-2022 Calcium [Mass/Vol] 8.9 mg/dL 8.2-10.2 [facility] Serum or plasma chloride vanessa surement (moles/volume)Ordered By: Kel Sparrow on 04-12-2022 Chloride [Moles/Vol] 103 mmol/L 95-114 [facility] Serum or plasma glucose cain urement (mass/volume)Ordered By: Kel Sparrow on 04-12-2022 Glucose [Mass/Vol] 127 mg/dL 70-100 [facility] Comment on above: ADA recommended refe rence range Random Glucose Reference Range is dependent on time and content of last meal. Glucose of more than 200 mg/dL in a nonstressed, ambulatory subject supports the diagnosis of Diabetes Mellitus. Serum or plasma high density lipoprotein (HDL) cholesterol measurementOrdered By: Selam Noble on 04-12-2022 Cholesterol in HDL [Mass/Vol] 56 mg/dL 29-71 [facility] Comment on above: HDL CHOL ATP-III CLA SSIFICATION Cardiovascular Risk HDL > or equal to 60 mg/dL LOW HDL < 40 mg/dL HIGH Serum or plasma potassium me asurement (moles/volume)Ordered By: Kel Sparrow on 04-12-2022 Potassium [Moles/Vol] 3.7 mmol/L 3.5-5.1 [facility] Serum or plasma sodium measu rement (moles/volume)Ordered By: Kel Sparrow on 04-12-2022 Sodium [Moles/Vol] 137 mmol/L 136-146 [facility] Serum or plasma total biliru bin measurement (mass/volume)Ordered By: Kel Sparrow on 04-12-2022 Bilirubin [Mass/Vol] 1.0 mg/dL 0.3-1.2 [facility] Serum or plasma total carbon dioxide measurement (moles/volume)Ordered By: Kel Sparrow on 04-12-2022 CO2 [Moles/Vol] 23.8 mmol/L 22.0-30.0 [facility] Serum or plasma total choles terol/high density lipoprotein (HDL) cholesterol mass ratOrdered By: Selam Noble on 04-12-2022 Cholesterol.total/Choles terol in HDL [Mass ratio] 2.1 {ratio} <5.0 [facility] Serum or plasma urea nitroge n measurement (mass/volume)Ordered By: Kel Sparrow on 04-12-2022 Urea nitrogen [Mass/Vol] 11 mg/dL 9-23 [facility] Triglyceride [Mass/volume] i n Serum or PlasmaOrdered By: Selam Noble on 04-12-2022 Triglyceride [Mass/Vol] 43 mg/dL 35-149 [facility] Comment on above: TRIG ATP III [...] aPTT Coag (PPP) [Time] 34.4 s 25.1-36.5 [facility] CARDIAC EMELI 3-6on 2 CK [Catalytic activity/Vol] 84 U/L Normal 39-308 [facility] Comment on above: Performed By: #### C CELINE PURCELLN #### [facility] [address] [address] [address] Bal Stallings CK.MB [Mass/Vol] 4.13 ng/mL Critically high <=3.60 [facility] Comment on above: Performed By: #### C MP, HSTROPN #### [facility] [address], [place] [address] Dr. Bal Stallings HSTROP 234.8 pg/mL Critically high 4.0-76.1 [facility] Comment on above: Result Comment: CUT- OFF POINTS HAVE BEEN ESTABLISHED BASED ON THE FOURTH UNIVERSAL DEFINITIONS OF MYOCARDIAL INFARCTION. THE UPPER REFERENCE LIMIT (URL) OF TROPONIN, DEFINED THE 99TH PERCENTILE OF cTnI DISTRIBUTION IN A REFERENCE POPULATION, HAS BEEN CONFIRMED THE DECISION THRESHOLD FOR [place] DIAGNOSIS. Performed By: #### C MP, HSTROPN #### [facility] [address], [place] [address] Dr. Bal Stallings Laboratory - Chemistry and C hemistry - challengeOrdered By: Patsy Smith on 04-11-2022 Natriuretic peptide B (Bld) [Mass/Vol] 79.0 pg/mL 5-100 [facility] Laboratory - Chemistry and C hemistry - challengeOrdered By: Shobha Salmeron on 04-11-2022 Magnesium [Mass/Vol] 2.1 mg/dL 1.6-2.6 [facility] - CoagulationOrde red By: Shobha Salmeron on 04-11-2022 PT Coag (PPP) [Time] 14.0 s 9.0-12.9 [facility] Platelet poor plasma interna tional normalized ratio (INR) by coagulation assay (relatOrdered By: Shobha Salmeron on 04-11-2022 INR Coag (PPP) [Relative time] 1.2 {INR} [facility] Comment on above: INR Therapeutic Rang e [...] 04-11-2022 Troponin I.cardiac High sensitivity method [Mass/Vol] 22033 pg/mL 0-20 [facility] Comment on above: Results called at 1027 on 04/11/22 BNPon 04-10-2022 Natriuretic peptide B (Bld) [Mass/Vol] 305.0 pg/mL Normal <=1,800.0 [facility] Comment on above: Performed By: #### C MP, HSTROPN #### [facility] [address] [place] [address] Dr. Bal Stallings CARDIAC EMELI 3-6on 2 CK [Catalytic activity/Vol] 91 U/L Normal 39-308 [facility] Comment on above: Performed By: #### C MP, HSTROPN #### [facility] [address] [place] [address] Dr. Bal Stallings CK.MB [Mass/Vol] 3.50 ng/mL Normal <=3.60 [facility] Comment on above: Performed By: #### C MP, HSTROPN #### [facility] [address] [place] [address] Dr. Bal Stallings HSTROP 191.6 pg/mL Critically high 4.0-76.1 [facility] Comment on above: Result Comment: CUT- OFF POINTS HAVE BEEN ESTABLISHED BASED ON THE FOURTH UNIVERSAL DEFINITIONS OF MYOCARDIAL INFARCTION. THE UPPER REFERENCE LIMIT (URL) OF TROPONIN, DEFINED THE 99TH PERCENTILE OF cTnI DISTRIBUTION IN A REFERENCE POPULATION, HAS BEEN CONFIRMED THE DECISION THRESHOLD FOR TN DIAGNOSIS. Performed By: #### C MP, HSTROPN #### [facility] [address] [place] [address] Dr. Bal Stallings CBC AUTO DIFFon 04-10-2022 BASO # 0.1 103/ul Normal 0.0-0.1 [facility] Comment on above: Performed By: #### C BC #### [facility] [address] [place] [address] Dr. Bal Stallings Basophils/100 WBC (Bld) 0.9 % Normal 0.2-2.0 [facility] Comment on above: Performed By: #### C BC #### [facility] [address] [place] [address] Dr. Bal Stallings EO # 0.3 103/ul Normal 0.0-0.7 [facility] Comment on above: Performed By: #### C BC #### [facility] [address] [place] [address] Dr. Bal Stallings Eosinophils/100 WBC (Bld) 3.5 % Normal 0.9-7.0 [facility] Comment on above: Performed By: #### C BC #### [facility] [address] [place] [address] Dr. Bal Stallings Erythrocyte distribution width (RBC) [Ratio] 13.1 % Normal 11.0-15.0 [facility] Comment on above: Performed By: #### C BC #### [facility] [address] [place] [address] Dr. Bal Stallings Hematocrit (Bld) [Volume fraction] 39.4 % Critically low 42.0-54.0 [facility] Comment on above: Performed By: #### C BC #### [facility] [address] [place] [address] Dr. Bal Stallings Hemoglobin (Bld) [Mass/Vol] 13.5 g/dL Critically low 14.0-18.0 [facility] Comment on above: Performed By: #### C BC #### [facility] [address] [place] [address] Dr. Bal Stallings IG # 0.02 10e3/ul Normal 0.00-0.03 [facility] Comment on above: Performed By: #### C BC #### [facility] [address] [place] [address] Dr. Bal Stallings IG % 0.2 % Normal 0.0-0.5 [facility] Comment on above: Performed By: #### C BC #### [facility] [address] [place] [address] Dr. Bal Stallings LYMPH # 2.8 103/ul Normal 1.2-3.8 [facility] Comment on above: Performed By: #### C BC #### [facility] [address] [place] [address] Dr. Bal Stallings Lymphocytes/100 WBC (Bld) 29.0 % Normal 20.5-60.0 [facility] Comment on above: Performed By: #### C BC #### [facility] [address] [place] [address] Dr. Bal Stallings MANUAL DIFF REQ NO Normal [facility] Comment on above: Performed By: #### C BC #### [facility] [address] [place] [address] Dr. Bal Stallings MCH (RBC) [Entitic mass] 31.7 pg Normal 25.9-34.0 [facility] Comment on above: Performed By: #### C BC #### [facility] [address] [place] [address] Dr. Bal Stallings MCHC (RBC) [Mass/Vol] 34.3 g/dL Normal 29.9-35.2 [facility] Comment on above: Performed By: #### C BC #### [facility] [address] [place] [address] Dr. Bal Stallings MCV (RBC) [Entitic vol] 92.5 fL Normal 80.0-94.0 [facility] Comment on above: Performed By: #### C BC #### [facility] [address] [place] [address] Dr. Bal Stallings MONO # 0.8 103/ul Normal 0.3-0.8 [facility] Comment on above: Performed By: #### C BC #### [facility] [address] [place] [address] Dr. Bal Stallings Monocytes/100 WBC (Bld) 8.1 % Normal 1.7-12.0 [facility] Comment on above: Performed By: #### C BC #### [facility] [address] [place] [address] Dr. Bal Stallings NEUT # 5.6 103/ul Normal 1.4-6.5 [facility] Comment on above: Performed By: #### C BC #### [facility] [address] [place] [address] Dr. Bal Stallings Neutrophils/100 WBC (Bld) 58.3 % Normal 43.0-75.0 [facility] Comment on above: Performed By: #### C BC #### [facility] [address], [place] [address] Dr. Bal Stallings Platelet mean volume (Bld) [Entitic vol] 10.3 fL Normal 9.5-13.5 [facility] Comment on above: Performed By: #### C BC #### [facility] [address] [address] [address] Bal Stallings PLT 228 103/ul Normal 150-450 [facility] Comment on above: Performed By: #### C BC #### [facility] [address] [address] [address] Bal Stallings RBC 4.26 106/ul Critically low 4.70-6.10 [facility] Comment on above: Performed By: #### C BC #### [facility] [address] [address] [address] Bal Stallings WBC 9.6 103/ul Normal 4.0-11.0 [facility] Comment on above: Performed By: #### C BC #### [facility] [address] [address] [address] Bal Stallings Covid-19 PCR ([facility])on 03-19 SARS-CoV-2 (COVID-19) RNA MERLYN+probe Ql (Unsp spec) Not detected Normal NOT DETECTED [facility] Comment on above: Result Comment: When diagnostic [...] for this test is supported by the [place] of Health and Human Service's declaration that [...] Performed By: #### C JAZZY, HSTROPN #### [facility] [address] [place] [address] Dr. Bal Stallings LIPASEon 04-10-2022 Lipase [Catalytic activity/Vol] 62.0 U/L Critically low 73.0-393.0 [facility] Comment on above: Performed By: #### L IPA #### [facility] [address] [place] [address] Dr. Bal Stallings PROF 14(COMP METB)on 022 Albumin [Mass/Vol] 3.6 g/dL Normal 3.4-5.0 [facility] Comment on above: Performed By: #### C JAZZY, HSTROPN #### [facility] [address] [place] [address] Dr. Bal Stallings Albumin/Globulin [Mass ratio] 1.0 {ratio} Normal [facility] Comment on above: Performed By: #### C JAZZY, HSTROPN #### [facility] [address] [place] [address] Dr. Bal Stallings ALP [Catalytic activity/Vol] 88 U/L Normal 46-116 [facility] Comment on above: Performed By: #### C JAZZY, HSTROPN #### [facility] [address] [place] [address] Dr. Bal Stallings ALT [Catalytic activity/Vol] 26 U/L Normal 16-63 [facility] Comment on above: Performed By: #### C JAZZY, HSTROPN #### [facility] [address] [place] [address] Dr. Bal Stallings Anion gap [Moles/Vol] 12.2 mmol/L Normal [facility] Comment on above: Performed By: #### C MP, HSTROPN #### [facility] [address] [place] [address] Dr. Bal Stallings AST [Catalytic activity/Vol] 17 U/L Normal 15-37 [facility] Comment on above: Performed By: #### C MP, HSTROPN #### [facility] [address] [place] [address] Dr. Bal Stallings Bilirubin [Mass/Vol] 0.6 mg/dL Normal 0.2-1.0 [facility] Comment on above: Performed By: #### C MP, HSTROPN #### [facility] [address] [place] [address] Dr. Bal Stallings Calcium [Mass/Vol] 8.8 mg/dL Normal 8.5-10.1 [facility] Comment on above: Performed By: #### C MP, HSTROPN #### [facility] [address] [place] [address] Dr. Bal Stallings Chloride [Moles/Vol] 103 mmol/L Normal 98-107 [facility] Comment on above: Performed By: #### C MP, HSTROPN #### [facility] [address] [place] [address] Dr. Bal Stallings CO2 [Moles/Vol] 25.1 mmol/L Normal 21.0-32.0 [facility] Comment on above: Performed By: #### C MP, HSTROPN #### [facility] [address] [place] [address] Dr. Bal Stallings Creatinine [Mass/Vol] 1.00 mg/dL Normal 0.70-1.30 [facility] Comment on above: Performed By: #### C MP, HSTROPN #### [facility] [address] [place] [address] Dr. Bal Stallings EGFR-AF QATARI >60 Normal >=60 [facility] Comment on above: Performed By: #### C MP, HSTROPN #### [facility] [address] [place] [address] Dr. Bal Stallings EGFR-NON AF QATARI >60 Normal >=60 [facility] Comment on above: Performed By: #### C MP, HSTROPN #### [facility] [address] [place] [address] Dr. Bal Stallings Globulin (S) [Mass/Vol] 3.6 g/dL [facility] Comment on above: Performed By: #### C JAZZY, HSTROPN #### [facility] [address] [address] [address] Bal Stallings Glucose [Mass/Vol] 113 mg/dL Critically high 74-106 [facility] Comment on above: Performed By: #### C JAZZY, HSTROPN #### [facility] [address] [place] [address] Dr. Bal Stallings Potassium [Moles/Vol] 4.3 mmol/L Normal 3.5-5.1 [facility] Comment on above: Performed By: #### C JAZZY, HSTROPN #### [facility] [address] [place] [address] Dr. Bal Stallings Protein [Mass/Vol] 7.2 g/dL Normal 6.4-8.2 [facility] Comment on above: Performed By: #### C JAZZY, HSTROPN #### [facility] [address] [place] [address] Dr. Bal Stallings Sodium [Moles/Vol] 136 mmol/L Normal 136-145 [facility] Comment on above: Performed By: #### C JAZZY, HSTROPN #### [facility] [address] [place] [address] Dr. Bal Stallings Urea nitrogen [Mass/Vol] 20.0 mg/dL Critically high 7.0-18 .0 [facility] Comment on above: Performed By: #### C JAZZY, HSTROPN #### [facility] [address] [place] [address] Dr. Bal Stallings Urea nitrogen/Creatinine [Mass ratio] 20.0 mg/mg Normal [facility] Comment on above: Performed By: #### C JAZZY, HSTROPN #### [facility] [address] [place] [address] Dr. Bal Stallings PROTIMEon 04-10-2022 INR Coag (PPP) [Relative time] 1.11 {INR} Normal [facility] Comment on above: Performed By: #### C VDTBH #### [facility] [address] [place] [address] Dr. Bal Stallings INR GUIDELINES SEE BELOW Normal [facility] Comment on above: Result Comment: TRISH RED INR: 2.0 - 3.0 CONDITIONS NOT LISTED BELOW 2.5 - 3.5 FOR PROSTHETIC HEART VALVE REPLACEMENT 2.5 - 3.5 RECURRENT THROMBOSIS Performed By: #### C VDTBH #### [facility] [address] [place] [address] Dr. Bal Stallings PT Coag (PPP) [Time] 11.9 s Critically high 9.0-11.6 [facility] Comment on above: Performed By: #### C VDTBH #### [facility] [address] [place] [address] Dr. Bal Stallings PTTon 04-10-2022 aPTT Coag (Bld) [Time] 27.9 s Normal 22.3-36.2 Th [facility] Comment on above: Performed By: #### C VDTBH #### [facility] [address] [place] [address] Dr. Bal Stallings TROPONIN, HIGH SENSITIVITYon 04-10-2022 HSTROP 134.8 pg/mL Critically high 4.0-76.1 [facility] Comment on above: Result Comment: CUT- OFF POINTS HAVE BEEN ESTABLISHED BASED ON THE FOURTH UNIVERSAL DEFINITIONS OF MYOCARDIAL INFARCTION. THE UPPER REFERENCE LIMIT (URL) OF TROPONIN, DEFINED THE 99TH PERCENTILE OF cTnI DISTRIBUTION IN A REFERENCE POPULATION, HAS BEEN CONFIRMED THE DECISION THRESHOLD FOR TN DIAGNOSIS. repeated Performed By: #### C MP, HSTROPN #### [facility] [address] [place] [address] Dr. Bal Stallings XR CHEST 1 Von [...] by: NAN LYNNE Date: 2022-04-10 17:59 Normal [facility] Patient Correspondenceon Patient Correspondence [phone] [id number]# 1.00CD:127 Normal [facility] Covid-19 PCR (CVDTB)on 03-18 SARS-CoV-2 (COVID-19) RNA MERLYN+probe Ql (Unsp spec) Not detected Normal NOT DETECTED [facility] Comment on above: Result Comment: This test is not yet approved or cleared by the [place] FDA. When there are no FDA-approved or cleared tests available, and other criteria are met, FDA can make tests available under an emergency access mechanism called an Emergency Use Authorization (EUA). The EUA for this test is supported by the [place] Worker of Health and Human Service's (HHS's) declaration [...] consistent with SARS-CoV-2. Performed By: #### [facility] #### [facility] [address] [place] [address] Dr. Bal Stallings SYMPTOMATIC COVID-19 ANTIGEN on 04-01-2022 EUA Statement SEE BELOW Normal [facility] Comment on above: Result Comment: This [...] sooner. Performed By: #### C TB #### [facility] [address], [place] [address] Dr. Bal Stallings SARS-CoV-2 (COVID-19) RNA MERLYN+probe Ql (Unsp spec) Negative Normal NEGATIVE [facility] Comment on above: Performed By: #### C VDTBH #### [facility] [address], [place] [address] Dr. Bal Stallings Office Visit (Cardiology)on 02-20-2022 [...] from primary care physician and vascular/Intervention al crystal mounter for further evaluation management of syncope and [...] his initial evaluation appropriately with a 7-day recruitment specialist and an echocardiogram. Patient also underwent a [...] 1 CAP (more content not included)... Normal [facility] Coding Summary.on 02-17-2022 Coding Summary. CD:[id number] G h0bWw+PGhlYWQ+BZ1VANH wA52jyMCiqB0CI0vOOY7Y FAVIINNHWM3WGK5qsEF4U JjbK5UftdRv AxkfxPLgFZ25HOw7KNA6x NnbAQzusL7poXEbI7h5Gc VvRR56xK15XZdvWPIoNvQ 3LjZpbjsgbWFy G9wsJiSsqTOkGkf+PHRhY mxlIHdpZHRoPScxMDAlJy InyUzuRK5qKw4nVJMeTQY vbGxhcHNlOiBj m0nuSZMxGZbpHU6lxAcrL 5EegKP5WYQdn2m7Tm63pB I+CNKmSFJ3oEaxPDagw06 4JdPph2phWEZ1 lSAeFPlaCCU9Z54mn8Q8A FLsYLOnNHT2qEI0iZ6edV afqkunB0OlgFRkNhV7NDZ 6yUBkiA0ktEqd tfeuwY7kPis+E07PHM5LG LSLPQ3ABwt0H0JzKdyqoM I+BR65XUWmMO06bQHynQF ke6ukxHw3HuSf RXPgKGK1jZayISfoh4IjZ HWgJ74dlTRyp3E3VDDbvA cjzMUaSuUroJF5tQ8wVHj szaxkq8rtwhqr Wwpiw7knbw40zI80S28gQ IjyIDTjXDB1GUXhEADyvI tzmy8yiO4wZl3+PWrfx5v wn7atyVm1EhUu SUOuvcUisIszXUF6n4RhS q05W7NdwDynf6TqCib2yg 09vJZpl2I5pNX0GBrxXCD geQ8kCRkgEmZ1 NROaZoCzgJ79jYBmAGasW q5hmTcxaOtiNL1aYPYaah riYWTzlB5bJYCtaARugOt eLE0iJOCemrev p862ZgOvMGE3WDTccZArP 1NrwD8xScRtBHXsQRSqW7 InkIRuDBeeS362PAxpAvE 5DJYblyKuW2Hk MDFjnGtuTwA3w9Q2Je7Hq 9AgvgjcURE6BItxGXN5Ti MuFrYwJyG4I3XqZgl2QOR foQqdML2lS1Jd WEOvulprcuiewPC5FMEtX AOhgG50jMQsLVqgHe6ar3 M3b875QRYsHJPubH67Rg6 udDogMTBwdCBU sW9gdovbx1mlnbxmHnKkI JNxDPi4MKf9FHTxyPkeXk IuTYC0KdV6KUJ8yMBsvU6 hsHxkckmvrY2a Oyc+S12ndB0uHKA5KDC7z bahOMIefsIpDW63FX76J2 RyPjwvdGFibGU+PGRpdiB qlIzuWD2vIpWu h8lsa8HsZEmmW3BnPDFgY IxfZyt0FEWpGYI4dAE9iL 1vQLZeBGwei8V7lMN3Q6K zfgYhkk6sv7mp XKDxLRzpL37puKZwc0H2G NPqiMS1HZEkdUedDhZswS 93Oyc+SVBvzJjax3SuXxb vd1wji3pfuCc4 QbZbZFKaxnMmgBabJGK4a 7WoOv32T53cPZtlLFVtIR EzKJZyBGOunRbfhl7ikJ0 wIi8+PGNvbCB3 pWK9aD7cRUQgLiD8OGhnK 794GaYbjFCpEcqnu0tgk5 tafKu9WlRmFMYeslOybKg hTHI9g8SqKp06 P87hHHbaSNCwEEBePKJqB JNszTkmts5qlX4uWo2+PC 2ie8mfvs76rL10oTD+PHR iDCK3dQfsLQrr RJXrdG8kHBoyGnK6PIFuC xOpyE27gPJmRAriAe6cbH iprYxmCG2aIRTugevkd69 6TsKsr3vlTQQa sMYhSZqiYPS3R05el3Z3B EPkVBDkTRP6iWJ7nW6xsI lnbjogbGVmdDsgdmVydGl zUGlsNPskY077 IHRvcDsnPlBhdGllbnQgT dFcBOs3G1ZeTeg5AXDqjH xeHV5lwDUuAGnvAp1ikAn zdUbqYJ5lQYXz xzhjp345SlVvm6knCSAok DDwUUecYAR6X17iz5N2CB VpWNPhNGI0sKD7hA7uwIk nbjogbGVmdDsg maWdeNjiYQyjDBjtO818K HRvcDsnPkJpcnRoIERhdG O2MX54CI90fCFac8M9sLD 3W9KqDKQkcxwk irpddHV6SHJdBATuvN16R l8wbZzjXa2iBDBqHCP5OT MatKVfH3WtlM9vXjIxKQS cIDPnG6TwsTSk JQdyF741BIwbQcZ6PEReb rRpM9ZbRQDjqYbiOvI2r2 L0Ih0LU8B0QJ52NV53tQI bx4O6dRF3Y3Nr IKXgtelyaisbxVS5XRUvW YIhiF72Lx0muMbqMu2fKS CmHCA9RRCmgEGcH6ZpxH2 yOiAjMDAwMDAw Y9YloXRnAJhjT645PXzsT vY7RXOwmtQsL8GzEVHweK srNaH4q9P9Dz6DANy9MO0 8UB14dMEnx5V1 vDH5J9EwLQHsfvktjhggc ZI5JBNjSJRitM94Nj3wcT wcOq5jGFPtHJP2YHFnvST xO6GjiZ9sVlXd YUYtZROdP6KwoIKoHZveN 144TGepLnF0FHLwuvRsZ7 KkJGZncIguNeY1j7W9Ni4 CNWXnIR33ZKG5 oKJ8RX97AK60L9VzScjjx GFibGU+PHRhYmxlIHdpZH RoPScxMDAlJyBzdHlsZT0 tLs6nMIIqAKPz cRcxmMUcCsNst8owSYUdP CdgKK6leKczF8XotVT4LU Hnk1j5Ut77K68hU6QaiHQ +FPMsmWR7cUX9 hX6bCcCsAcN5LPzkF187W wGjtFMeVmnsv3xfx9jfpZ y3WdF3ITLdhlZkiKfoLRE 2o2ByQc86R61c IHdpZHRoPSIxNSUiIHZhb Mqdtg8nhX9jFu4+PGNvbC L3fKW1cC9wNjKcVpD0PEz oE447EzWgyMYd Twrek9bsg7ypbHf8ZzAbC ETmqjOraQknSSH8l9VyYg 70I4LxnJzji3TbBcp5ii9 6tPVff9O3kIT0 I4XjIUGotkqabWYjmUziX A2gMIZdwtqdYUCqdV8kGV ZdY4z3LvAxEvM8KIrkY3A cgwJ5DNFucUNr IJprPLT4R89bf3P3PHCbA EDoSVL3lAP9zV3bvJzgpc ogbGVmdDsgdmVydGljYWw tHGrbN416GBYt bUwzHGPliZ3lGMEkbPDbb JijUW7lBJVxhjqcKyLAE6 pvVVgFQRvWYZ8mMnrruFZ +QIZlMKA0gOer FDbmRTShzB5nDJHgJ8d3T aBrFsC6YLybK8GsXFWpqs wtAj22fX9dQnRwGfU6HNz bD3FsalG9ABXo fPBlJFqgNOS4A68ki2N2P PJgAVCjXJD7cSL1nM7asM lnbjogbGVmdDsgdmVydGl oJUqbYZrwG819 TJJbtFcpQoH3JjVhPhS8T ze0L1XbLzf1LJCafCopZI 3txWSpSBbtLs3dtIjioVk nAE2rLCQagkgp LAZcgF7hOZRvzYFkdRolJ A3tILBgfezyq588OjTeQI P8SXMpfIPzL7BtlI7eXwE qUUSqYRGiD7Qs wIXkBCmkM531CQvdWlB2R LEhwyJvS3BpYOHpxMehWq L8m7O4Gd96GYLZNNHlctf vdGQ+PHRkIHN0 oDhmFZvlYNBmiQ0rIGNwX 0c9FcIpUiK3ZXfhS0ZjER EqumejNx18uL6vOyFoDiW 6PCawM8KpsiB0 OMUffZQpRVldZUB7G97im 0F6DTMhEVNzOPT2lUE1eC 1hbGlnbjogbGVmdDsgdmV ydGljYWwtYWxp O759ACApgWdoAn8hhFV8K 5CvXez0RVFzqObzEC5kcT LxGHgxMc8sdXyhhYriSS2 wNTBpbjtwYWRk qU0dDELycFFnqUzzME0eM PGnvdmrl574DkWlTGU9GT OxpKUeX6XcvQ8jLoQbNUS rWZMzN4XabMHr ECfyF379MLtwJrD7XYKmc aMvA8WuNWUphDwaTwL5o2 L9Hs0KEIygLW1dxqNvOZ1 joxM8M0DpTdzh dHI+XZ72MMLeXH13qHQmt YWvu1elzNl0PyAaGUFhTK Z4jXznISdur6LuSKFeT80 spWWla3X6LREa oAdmpJOvCpVvaBU2wV6uH Vpnwqzej4otlwnvPacmb9 tpvl54aM72P27dMRppTRQ oPSIzMCUiIHZh vQpjph1elI5xLt3+PGNvb OF4hUX1hY2iBsQmQgR3PQ cdM140OqAilGDiNdxoh4r bs5dguMp2OqIs QHOrbdYcqXusDIF5k5JjC a85T53cDQsaYKUlKYAcPG RwBUCnjWaioi6paY9aAu0 +YK6au1uhzx79 pO34rTS+OUVyTVJ9tIxwS QymAOCytT4pKMubNeZ5GN BfVsDdqH18uRNzSPohSa3 mnDuljPvzJC4d BDGgxkidd502CbTxn2zeG UDzcUEkDQtqKZY8H32ip9 G7SEUgZBVfKGY8xWW5fU0 hbGlnbjogbGVm dDsgdmVydGljYWwtYWxpZ 716PUWaoMvtSuOxlIDzJ3 moepBDRG0uUffwlSD+PHR bBRB0zCyoTSwt HHAuqF7qIFAjO3e0NlKyI qM1SVcmV9NcneU3MLRmvB OmDDCspUSPnJ2wipfro8l vcjogIzAwMDAw FYs7MIz3YYKsyCcsQfDxU EB3WlE6TBO1oXOwqI5btW vozyisuY9bJdj+RklOOjw vdGQ+PHRkIHN0 xTmaSRioLTVapF8tIYOuO 1u7FiPiVkB1ZUvhQ0Hesy A5RNSijQCiRHEyvTQLzD9 pycipm4lrulen VeMdDFHxLLm8PEw4MNRjj DxwTxUlWXW4SnX5TNU3jS XezE8cfJkvexvlbM0nOxt +TVJOOjwvdGQ+ INKgWOY5sEvdQYqwPOGbf P9qYPIwI9j2YsOcSeV2WY woI5LtrfE4RJInkAPuQAR tdBYLkK7gsdzb p2izncuuCnTkMJMqSGu1X Ef4WOGarOqgAlEgFNJ0Vc G7WKC0vJLpdI1isCghywk hiD2mUcd+UGF5 WSG2CK53BJ84S9JqOpcjk GFibGU+PHRhYmxlIHdpZH RoPScxMDAlJyBzdHlsZT0 wSz8mOECnZVYu bGxh (more content not included)... Normal [facility] Consent for Treatmenton 01-17 Consent for Treatment [id number] [facility] [id number]# 1.00CD:127 Normal [facility] Office/Clinic Note-Physician on 02-05-2022 Office/Clinic Note-Physician [id number]# 1.00CD:127 Normal [facility] Patient Correspondenceon Patient Correspondence [id number]# 1.00CD:127 Normal [facility] Patient History Officeon Patient History Office [id number]# 1.00CD:127 Normal [facility] BASIC METABOLIC PANELon 12-17 Anion gap [Moles/Vol] 15 mmol/L Normal 10 - 20 [facility] Comment on above: Performed By: #### B MP #### [address] [id number] Calcium [Mass/Vol] 9.4 mg/dL Normal 8.6 - 10.3 [facility] Comment on above: Performed By: #### B MP #### [address] [id number] Chloride [Moles/Vol] 106 mmol/L Normal 98 - 107 [facility] Comment on above: Performed By: #### B MP #### [address] [id number] Creatinine [Mass/Vol] 1.01 mg/dL Normal 0.50 - 1.30 [facility] Comment on above: Performed By: #### B MP #### [address] [id number] GFR/1.73 sq M.predicted among non-blacks MDRD (S/P/Bld) [Vol rate/Area] 73 mL/min/{1.73_m2} Normal >90 [facility] Comment on above: Result Comment: CALC ULATIONS OF ESTIMATED GFR ARE PERFORMED USING THE 2020 CKD-EPI STUDY REFIT EQUATION WITHOUT THE RACE VARIABLE FOR THE IDMS-TRACEABLE CREATININE METHODS. https://jasn.asnjournals.org/content//ASN.261 0857656 Performed By: #### B MP #### [address] [id number] Glucose [Mass/Vol] 120 mg/dL High 74 - 99 [facility] Comment on above: Performed By: #### B MP #### [address] [phone] HCO3 (Bld) [Moles/Vol] 21 mmol/L Normal 21 - 32 [facility] Comment on above: Performed By: #### B MP #### [address] [id number] Potassium [Moles/Vol] 3.9 mmol/L Normal 3.5 - 5.3 [facility] Comment on above: Performed By: #### B MP #### [address] [id number] Sodium [Moles/Vol] 138 mmol/L Normal 136 - 145 [facility] Comment on above: Performed By: #### B MP #### [address] [id number] Urea nitrogen [Mass/Vol] 17 mg/dL Normal 6 - 23 [facility] Comment on above: Performed By: #### B MP #### [address] [id number] [facility]Con 01-09-2022 Erythrocyte distribution width (RBC) [Ratio] 13.5 % Normal 11.5 - 14.5 [facility] [facility] Comment on above: Performed By: #### C BC #### [address] [id number] Hematocrit (Bld) [Volume fraction] 43.4 % Normal 41.0 - 52.0 [facility] Comment on above: Performed By: #### C BC #### [address] [id number] Hemoglobin (Bld) [Mass/Vol] 14.4 g/dL Normal 13.5 - 17.5 [facility] Comment on above: Performed By: #### C BC #### [address] [id number] MCHC (RBC) [Mass/Vol] 33.2 g/dL Normal 32.0 - 36.0 [facility] Comment on above: Performed By: #### C BC #### [address] [id number] MCV (RBC) [Entitic vol] 94 fL Normal 80 - 100 [facility] Comment on above: Performed By: #### C BC #### [address] [id number] Platelets (Bld) [#/Vol] 222 10*3/uL Normal 150 - 450 [facility] Comment on above: Performed By: #### C BC #### [address] [id number] RBC 4.61 x10E12/L Normal 4.50 - 5.90 [facility] Comment on above: Performed By: #### C BC #### [address] [id number] WBC (Bld) [#/Vol] 9.7 10*3/uL Normal 4.4 - 11.3 [facility] Comment on above: Performed By: #### C BC #### [address] [id number] COAGULATION SCREENon 01-09-2 022 aPTT Coag (Bld) [Time] 29 s Normal 26 - 39 [facility] Comment on above: Result Comment: Note new reference range as of 09/16/2021 at 10:00am. Performed By: #### C OAGS #### [address] [id number] PT Coag (PPP) [Time] 13.3 s Normal 9.8 - 13.4 [facility] Comment on above: Result Comment: Note new reference range as of 09/16/2021 at 10:00am. Performed By: #### C OAGS #### [address] [id number] PT, INR 1.1 Normal 0.9 - 1.1 [facility] Comment on above: Performed By: #### C OAGS #### [address] [id number] Order Reconciliationon 01-09 Order Reconciliation Page 1 [...] tab(s) orally (more content not included)... Normal [facility] Patient Profile - Preop v3on 01-09-2022 Patient Profile - Preop v3 Patient Profile - Preop: Initial Info: Patient DemographicsName: MACARIO ASH Date: 1935 Address: [address] [place] [address] Primary Phone [phone] How to be AddressedBill Spoken Language PreferredEnglish Source of Informationpatient Stated Reason for Admissionablation Primary Contact Name and NumberBranden Ash [phone] Medications Brought to Hospitalno General Health: Weight in kg99.5 kilogram(s) Weight in bmx305.3 pound(s) Weight Methodactual (measured) Scale Typestanding Height in feet5 feet Height in emhedw22.94 inch(es) Height in cm180.1 centimeter(s) Height Methodstated BMI (kg/m2)30.675 square meter Patient or Family Member Reaction to Anesthesiano previous reaction Blood Avoidance/Restriction snone Previous Transfusion Reactionnot applicable Health Mgmt: Symptoms/Conditions Managed at Homecardiovascular; musculoskeletal Cardiovascular Symptoms/Conditionsdy srhythmia; hypertension Musculoskeletal Symptoms/Conditionsba ck pain Barriers to Managing Healthnone Relationship/Environ: Lives Withspouse Living Arrangementshouse Resource/Environmenta l Concernsnone Anticipated [facility] [place] [facility] Anticipated at Transitionnone Tobacco Use: Tobacco Useno Pre-op Checklist: Arrival [id number] Arrival Time05:09 Procedure Typeablation NPOyes Last Food [id number] 18:00 ID Band On Patientpatient ID (name), [...] Updated: 09-Jan-2022 06:09 by Dasia Mcfarlane) Normal [facility] Coding Summary.on 01-08-2022 Coding Summary. CD:[id number] G h0bWw+PGhlYWQ+HA0OQWC qH16pnOFsdG6FU6lUEY2Z ZUKJHWCITE2WBG6qyEU9K XdtU5LruhGv FvhpiHGgJW34TCl6SOU8w NpeWEfrvK5lyCTtN0u4Ln FfTA79hL60JIqpEPHpBjT 3LjZpbjsgbWFy R5wjOrYndBJjPvw+PHRhY mxlIHdpZHRoPScxMDAlJy CtkRqmAM5tKz4kUTUtYTP vbGxhcHNlOiBj m9fnBPGjVDeeEB0qsHwmF 9ImoXU4SBNnk1k9Kg90uB I+BKUwGWP2qKpyEXzbu81 7SrKkl5jySCV6 mXRyQPqfVTB4T69eb5V9S VHzRPVxEKP9cTO4nN3qoA suzsnlD8WpuYVhTfQ1XGR 8qGFmgB6ouQlc gjwmuI7zZzi+Q67IKH4KS RATYA0HShl7I2QuTqaazJ I+WV57YDInOB80tSBtwER hp7hzrIt3RdVj FFUdHND5mJuoLLcou1QqK JNtM99llEMmi9N2IJQfcG tzcTQoEuWhnNA9sN9mYXy ygpeim3aomltu Oivii1ekfa20dL37Q99iI OweTJAiANL3RRSxFGQiuH mweu8bhN5pLl0+SOflj8p bw3xicIe2RrMd ALCrieUutQqjEWZ5e0ItE x55H1YpuYnxp8PqTpx3ki 92cIRgj2P3pGI6ECzgSTM ewD3rJOipMjX0 AJOlYxDpyB97aZQkHNbuU u2yoNubmXasFW1iSYItpg noGIFiwV9pOMLygRKclMh cJZ8oKYLevnag w507ZeWvIBR3BNKjiNEbN 0IuuE7cOxYeGTSsASCkB4 XvxMVpXUdtL184EOoqKoL 2TSYmpnCwH8Ol MWCewZhuMnW6s3Q3Ch1Zh 2XyuaqcRQR2XMhvHDYlFl P9WyNlCwB9A7ZbIlh6JOC muKpsES8uV2Vj SWLviqqndllzbNQ9HDTtE UPrvB60eBPvBRihKl9kd9 O5i312KLNlNUVlhU64Qj9 udDogMTBwdCBU tT5rixqzv0mxfjpwUjMqZ CYlVCw3MAn8HHWjgBuoPf BzDBU5RxM1JKH2qSBrxS4 hbRqiuofibY9y Oyc+O33mfT2dGST3BJH1z lkzDIJecrPqGG42MC40I2 RyPjwvdGFibGU+PGRpdiB sbHmbGV8yWuGc d3tro2MgFIyeU5ZoHFScD IwfMtz2EYZyHLS4rNU7oU 9tKEQxXKmtj0S4hEF8W8Z emkOnet5ew8ok AMVlGZszH07fxGWkq3M0O SSumHG1GCSbbLrkHpJnzA 93Oyc+DICdcNthi9AwQzk iq6sdz2lfgKt4 BeWaSHNiviQzeCvxKFQ2n 6JwAn51S35sCKboUGAvVE ZhSLSlLQCxqKsriz7fnN3 wIi8+PGNvbCB3 mFK0xK7iLWMfEhM3LEeoC 247WvQfzPIaSnnvy2sff4 pueFc3StHzRKThpuUirGl tLMO1d9PhGy50 K91iKQonDKFpBICgAJBjZ KKyyEkuwz7niB9vXe7+PC 8uq1lont14rY52dOZ+PHR rVQU1qVvwKMko VLXlcO5dLUvoLuT9YQJbJ kXvcM07lQHoTZodDp1qpX mhyVatFX8iGSYoflave02 8ZzDij9moNNIg fWReAHfvVII1O04bz7P4N VFvXTXsBXO4sQM7dF6rnE lnbjogbGVmdDsgdmVydGl aMCxiFXnrG601 IHRvcDsnPlBhdGllbnQgT aIuZGi3R7WjDsv4XGDiyL akDG0lnXZeFIioDv1uoLn ewVhnDE6qGMTq htgel273OcOzz9ibTZCks DKxRAnwBVW5H28ma0G2VY ZyUSKrGQJ4aRG5cP9srOu nbjogbGVmdDsg luYdiYvhAZyyWPixG124R HRvcDsnPkJpcnRoIERhdG W1PZ11QI49uKVlk1J0mGO 0P4QoJKKpaakz rugnnEK0WIMrLTLbsF79I i0ouPrwFi6mYNVuZJL1PQ ArxLLkI6OogB9nMiBiCCB oNAYrW6IygEFv KEsgY529JOxjJpV9JXVsw iPcY4FxRQDcuGcqUuL3f8 B2Uu3BZ7B5HB62LR13wYL lp0M6tOA7Q3Bk KPCjmakzgnvkrGF7IQTpB NWzbV41Uw6daCucBr3bBX CzUPN5UCQpuLVkM1TwpR4 yOiAjMDAwMDAw D9PqaOHtGSxeL809OAnyY fL2BJZukrYqU6BzXUEdsG pzAoR9p2C6Zq9PREr2OJ4 2GO97jOSch2U7 cHY3C3AeHYRnyfzutecgb DI5PEWqGNNjbB57Zi9olE siIy4cAYEvDLX6AXJtlJV qI9EpmU8zXfFm GEBdPKMhV6JlgAFiARymU 748OAoiQrW3MITykeWhZ9 QgOQFxnYeiOlQ7l8T4Oc7 EVUVbBZ65RNV9 dZT0LM92MH86N4AsHciog GFibGU+PHRhYmxlIHdpZH RoPScxMDAlJyBzdHlsZT0 xRc7gSOThMTUh fViwrMUlHeTfp8rpWJUhH XjvAT7hfOcjZ7ScwLU4UA Fwy9c7Ao71I67cB0KlhVC +IZPpbVU1uNF5 rY2aMgZqMbO7KCahZ371L nLgnXStBglad3rjr6gxxS k7MeE5TCGdweUniZuuPIA 6q8VlWl93Q39u IHdpZHRoPSIxNSUiIHZhb Ydjft7rpR5pXb5+PGNvbC I6cMW5rG8fAtHrGdJ1RHu aE743JkNksZHa Iftmv1rzb4rsvZh0BuGhO YUquaOihQxyYHY1z6TvEn 04N7CrlGrek3GyPef2jb0 9lNPca6R2jGQ2 W1SwVBTcvcmnhFJaxJpfL P5qLEGobvwcDZGfuZ6uZN JlB2q0SyOrLcD6LNupT5L sxmJ4FSLahJYu RSfyWTB7E20cr4H1NEVuC HCpWCD9qXF0zB6dgKirob ogbGVmdDsgdmVydGljYWw rHXtxL836TQCn vAtaYISlvI7uEXVqgLVvw XekZK2yYBEhmkqoQsGAC3 ldOHpJBUxYNG6cCohneRC +XPHvHEO7mZdu ZQitCLTxfI6tSBZkL2u0T lDqEhR7AApfM1SeKGNpgb ueIe58eM4dSuNkDlS4NVf xJ9SxwrZ8YWZp rDGdYCcbLLM9U17ro1L1E YCwMUZsROC3xBM4oY1zjH lnbjogbGVmdDsgdmVydGl wPDasENmfB854 HBYgjKdqYuS7KvBlDwG9Y sy9Z3WfJgx2CZBioMjiVQ 3unJBjSIxfGz2kjLcwmZm xCJ0yNWXbcqqn XESwfU6fNWRnnNXpiVumQ M4rDEWgmzdit173NvWnES N9WMOohEFtK9WjgT0lStW sKZPsRMEmY2Sz oJRdNApjR251BGuvIoJ0R NYvhtDnC4BhUGNsdOdhZb O2c2C9Ot40ZQAKAJXmbew vdGQ+PHRkIHN0 hUhgIRqvKWUyxI1aLEQeQ 4b7DiYoGlC9WLkcJ7EjTP ZwqshmRf59eX9wBqWtXlT 5LJxeC3UpcuN3 VFDfqRQjTIfvAQY5K89rk 1N9BXErSYOqRSW2dJJ3gR 1hbGlnbjogbGVmdDsgdmV ydGljYWwtYWxp Q106QMPdkPioAr8abHQ4T 7DhIne8CKVefRtaTH8fgO LmQVfnZs4xoSoajSlwOY9 wNTBpbjtwYWRk cE3hOTHmwGHhmHkbVO5iE UXfdviuq786EtObEWI2HU YhdYIeR7ThoM4sEbBwKOL qOCJdR4OsiMNb GFyrZ882GKyzEeB1HRDtj oFmM5UqDNChlCfcOaM1r0 O9Bz3EGRruWI5vfhYuZF2 pumN1X2BrJzug dHI+DB87ECNwNK35hSQkb ZSdq8rsdMq1WzJwPZVyQH F4jAfpMXpju5SbVDKyM95 wbDJit5H5PLQg nLrkvANbDaCrnOR8gW7iA Szvjccij3eypfavKamqz5 yhee93gX77I88eWVrjBNV oPSIzMCUiIHZh aAujuh8cxR3vOh3+PGNvb XH2pYC2kH5lMkSbYrI2LD hcN996VrUpoXLjAoubv2t qy1vmtHc4BsAz OQUcdyEjxEotZFT1h4GoW x86L31cAUzgHJNxJHMdVC MyQEUmvBesbs2myQ7uVw8 +MI2wj6ovvr93 iW02aYW+CKYeYIJ8bXzqX IclNSIdyO7mMEraQjR2FO GnBfPbnC32tCZaLYbxHj5 biYjcpGiiOI7j GCWoqbbpr837AfEpr6saC XZtsWQmQBmlOFZ9B70qy3 O9DYAfUBPmZCO0cSC5yQ0 hbGlnbjogbGVm dDsgdmVydGljYWwtYWxpZ 101SPXyvPhdCqTgsUFoM1 nuwbSFKE4aGfezyOA+PHR vIJG6zLwoLBtg KOPjqD8yCMJzC6q3PoZyJ mB0UNzwQ8NljnR5LLNvoE ObQOVmvCBAjV0namooy4b vcjogIzAwMDAw AXx9TOr1XQNkfNizMlVkR OL6OkY2ZGS7rQJyxT4zwI qgrfedhO3wSzn+RklOOjw vdGQ+PHRkIHN0 rUolSVyeJQKopR9mVOClD 4r1XiOkCzE1HGdwR4Cyxz H5IKEqbILgJBJuiPDAxG6 psanvg0lshdvd YoYbTWZfXSt8ECw7VTAie DtaRqMnPRD0HzX1VEY2wN CxbQ7zoNgofycuuE0jCgo +TVJOOjwvdGQ+ GRShFHV5yGyjRNwtBGLyl M6uFYKpZ8u4SdCaAaS1EH drE8AyzeY0ZEMbjGGgFND skHOOhH6vakpq e7shbdifJgMqIKJdMWl0W Ee2JJAtnAbnLzOlZXI7Dr I9FML7hNFxbN6kpCumlpj mpF7rYkv+UGF5 WDO0AK12IH43W6BwAgiek GFibGU+PHRhYmxlIHdpZH RoPScxMDAlJyBzdHlsZT0 pPr9nCDSuSHCg bGxh (more content not included)... [facility] Consent for Procedure/Surger yon 01-07-2022 Consent for Procedure/Surgery [id number]#1 .00CD:127 [facility] Consent for Treatmenton 12-17 Consent for Treatment [id number] 030 [id number]# 1.00CD:127 [facility] Discharge Instructionson Discharge Instructions [id number] 0303 [id number]#1 .00CD:127 [facility] IntraOperative Documentson 0 01-07-2022 IntraOperative Documents [id number]#1 .00CD:127 [facility] IntraOperative Documents [id number]#1 .00CD:127 [facility] Main OR Intraoperative Recor don 01-07-2022 Main OR Intraoperative Record IntraOp Document Type FTPM Summary Primary Physician: Bayron Rodriguez MD Finalized Date/Time: 01/07/22 14:50:10 Pt. Name: MACARIO ASH/Sex: 1935 Male Med Rec #: [id number] Physician: Bayron Rodriguez MD Financial #: [id number] Pt. Type: P Room/Bed: / Admit/Disch: 01/07/22 [...] Performed Surgeon - Primary Scrub - Primary Lozenge Maker - Primary Time In 01/07/22 14:39:00 01/07/22 14:39:00 01/07/22 14:39:00 Time Out 01/07/22 14:50:00 01/07/22 14:50:00 01/07/22 14:50:00 Procedure LUMBAR EPIDURAL STEROID LUMBAR EPIDURAL STEROID LUMBAR EPIDURAL STEROID INJECTION(.) INJECTION(.) INJECTION(.) Comments Last Modified By: Anna Garcia RN 01/07/22 Anna Garcia RN 01/07/22 Anna Garcia RN 01/07/22 14:50:04 14:50:04 14:50:04 Entry 4 Case Attendee Yasmeen Staton Role Performed Management Retail Intern Time In 01/07/22 14:39:00 Time Out 01/07/22 [...] and tissue Entry 1 Skin Integrity Intact, [place], Warm, and Skin Abnormality No Dry Outcomes [...] to positioning (more content not included)... Normal [facility] Main OR Preoperative Recordo n 01-07-2022 Main OR Preoperative Record Holding Area Document Type FTPM Summary Primary Physician: Bayron Rodriguez MD Finalized Date/Time: 01/07/22 13:50:24 Pt. Name: MACARIO ASH Main Young/Sex: 1935 Male Med Rec #: [id number] Physician: Bayron Rodriguez MD Financial #: [id number] Pt. Type: P Room/Bed: / Admit/Disch: 01/07/22 [...] By: Paris Schilling RN 01/07/22 13:50 Normal [facility] Operative Reporton Operative Report SURGERY DATE: 01/07/2022 [...] in good condition. Sloane Carreon Dictated: 01/07/2022 [id number] Transcribed: 01/07/2022 [facility] Comment on above: Result Comment: Elec tronically Signed By: Jennifer GAUTAM, Bayron\.br\Date and Time Signed: 01/07/22 16:31 EDT Coding Summary.on 01-05-2022 Coding Summary. CD:[id number] G h0bWw+PGhlYWQ+OX2RAMB gT60rsPJihI6YM9nXUR0S ZYMPHHSAMB6CLP5ysWQ2Y YwvB1IdtiCw BptixBIjYL22DZu6GXK7z JdfFLyrwR3nvXQpK0q8Yr QlFC19sA51TIseFXXkYsN 3LjZpbjsgbWFy M4saCiMshLMjAgx+PHRhY mxlIHdpZHRoPScxMDAlJy LpmXyxXW9bPb5jTYCyPEE vbGxhcHNlOiBj s4hsQQWuXCcpFK5lmKgcV 3RszOO5XYDdo9l9Lt76sI I+ZGQoBFG6bYkuYJpbt23 6HsNgx4fwNJC6 aTIoQDjkLEP3K25fe7O8U STfIDXyHHR7bCW4kR0ymX kxhwitF9EjjGHrHzQ9HNT 3jMKchF9skIok lskxtU3bZni+L61FPF2ZH KEJXE4ZJfh4W5HaZpcblE I+WS93KKKoHB74mDAetCH qk4isgZj2GdWb OLPbGPQ6eIdlRXzrf0XoO YOfR55nbSQax5L8DRVyqK tqtWLiPwGknUC7xA5sRAe mwrzqv0vmwbfn Zozws3yxce78wU60T37xZ BzuLSIpIUA9KLGkIREjkG fkcs7duD2wWb0+GHfoh7r lh1zvkTg0MuSr NNUmofBvjQkjBRT2a7KlW h06K1QqdWxuy0KoWvo3ka 38dIRld5K0dBY4YHvpIVG xeL0gEUxfKqZ8 JGChKtOejC88sMSoPThxI r4ltSjjuBssCW9cJCOzam iaMSBdvB9bDWAfbFKpjJp rTD8mSWPavrwf x637WiFvJBH6HPDllPZqE 9XaxP2xGsWjKVBvWJUnT3 ZrwALtUOyvF041UEmgClV 0PUJyfwFpM2Na SVHleKyqUyS4n5U8Dz2Ov 7ArgvzfUIY3SPzqTKUjIw SlPdGuDeU7T8ShVfl0XZA elMjeTP3iJ6Zz TYKmazfvmjoaqKC6QZEoO EVgyN94vQGgZCfjFs3aj8 D5x914DWWvQJPcmT44Uw6 udDogMTBwdCBU dP8llupef7avufjtLqGlL JMeGGn8RYi5LARdlXduGf WxUCZ3OlD1SXZ7oVWydS9 rdHirhdtcnX6z Oyc+H01eaC8zHKT9OVO6p sxdLMXoapWjWE55CT71T5 RyPjwvdGFibGU+PGRpdiB onKieCM4rOxKx c0nfx1YvNEpeC7MaTVHrB WlqFvc1XPToVJW7sSU8iO 9rMMFaBGfpo3L9nYQ8Y7P njyKmzd0ty4rr JGWbIEzvU07krICws2L0W ZQfyZO1NYUkcWhuSpBmwI 93Oyc+OVXvyCmjo9UwHhh ww2fat3hfpZq2 EaTpGLOohqOypIzaLFT3h 3LqWu36G57yAAupDDXtIY WmOYAfYOIdlFfiwq1ghW2 wIi8+PGNvbCB3 hTY3bA7kDRCqLuO6GTerU 342KiMoyGKqAaklq9hdw6 chnPn1LsAxJACngjWddHj fFUN5k6OpMo28 Y96vUXabPYPqJIXoIPRyN IItfEsdpz3ygT7jUt0+PC 6sl5izuq60vT79mZY+PHR pFSS5gCpoYZch RXEsdM4fUVxdTrR7EZLgX mUtdD79vDJcVFhdYf2jaX qchEjxJP9gMQLjjlmyh73 9TzVyp0glNARg bUHpXNziVUI9E86zu7G3Q HEmCQFbDGX5gVY2gQ8drL lnbjogbGVmdDsgdmVydGl wVTcuDMfiB446 IHRvcDsnPlBhdGllbnQgT tZfYOu1F4ErLmu5NEIrhR gcWE3zcOQcBComDd5rsVi ljDgxJC6mUZVl jtfhe671DrHpp2frLZBui FLrIQsdSWL1E19ki7G7JR QtIANvSQT4qSO4iF0dcMo nbjogbGVmdDsg niStxGczMNerWCurU014X HRvcDsnPkJpcnRoIERhdG T7YH09FE93mSScm7M3fQA 3W5MsOYSlpxlz cbeibXZ7XYOcXJEplM98A h2aeFhlNs1kNASeJZF8GT SbxQOtF4EqqW2cBiUaBEL qRRExG8UdtAFd IXwpM801ZEkxGhW6RTWfm jIhH2PcYORgnMrqEeU6a3 J1Ah8UT5B4TS22IV75xAG ly3A1sFZ2V8Ea SYFwddmwkxadwPT4JIKpO WLdnQ66He4ldLefGe7pXC ZvZHK2PJBfpKMoK0VuyZ2 yOiAjMDAwMDAw G0YwsQIdZBseO558MAagY qV5VDCvqfLfW5QlSRYwyP daOsP7j2M6An1TLGs2MY9 3IS48sGQpg0P6 jBC9D6CcEALsqsslvidis MF0LRFyRTIzxU18Qi4mrZ fsOf8rHRXyBNI2UCNmwSI gV6VbjQ0tJyCd SMXjYEFdW8MbcEXaIVzlE 300WLeoGzW8DGThczErQ7 LdYRUzsAvlHrS0w0C8Wd1 FPORkQW04XUV7 dNY8AV39FM84U6NbCnonn GFibGU+PHRhYmxlIHdpZH RoPScxMDAlJyBzdHlsZT0 eAj1wIVSfEZFu yXvmnILuHxVpn8wySCZcM AcgYA6zdFbfJ7UoiNK7WJ Nyh0j1Lt47I14rS3AslTC +BLJdtKL8nNV8 jE8oYnQyXuX3DQjxU676C kPdpGQeSmadq8ffo3gpsE y1OzE9HDCakfHpaLzbSYY 8j9HyFx68N86j IHdpZHRoPSIxNSUiIHZhb Gituz8yjV7dLq2+PGNvbC I9aYH8dD7jCgFgMmY0OQb hB336IlWwtQTm Iajqg5hao1bagXm5HoPmB YYmhzOqjDbgMKO6u6TeRm 45Q2SlwUhah5GiBpi2us5 5aGWya9I3tTQ3 R6WmCNJxqsgzdCBwoFnaN L0iTPSbxvpqVQCcfR0gXD ZnE4d2BrYjJvZ7UKkkY0R cezS3AMLlaJPs BRyzKWO5Y54jx6C8SASmG MMnUXA8wDI7sD1fuAlnfs ogbGVmdDsgdmVydGljYWw oNNlgX669IWVt tTjjUEUrtQ7eKEEwqIVtb FnoGO3kEJKodzgrZzNXE8 ovWRaBUNrZMX2nXpwkrAA +QFUbSYM5dQwr GVqaFPJreS0qWWWyB0r3W dLnQpE7IOgoD9OfRYTzfi maXn90dG8uVjDdJbS9HRz bF8NqhqY6MUHr aNGcRZdaODH4P46lr1A5Y DUfVZKcATS1rZS6eJ6ltB lnbjogbGVmdDsgdmVydGl nDWoiVDmxX930 OQZeeUjlZbF3WvLoPyM3I wd4K8KqOtn9XDBhgXwvSD 9ggWSrDUeoTm4cdNanmFj lAK7kTDElvfee JBKkdE7xYFBvbDQmjMekN B5tBQNetackr142SyXmNI N8CKFilTCxU2AqmX3gTkD wEERkZGFsI9Rl eCGlAQuhO373WWntTeD5C RBnkcPdV9AkWHBkhGhaJs A7i9D9Ky38DHQDDGGoosj vdGQ+PHRkIHN0 kLriGAtbEDKdhQ2vEBTdE 0w4UdAnXzR6SQmaX6KlOZ XtqvwuUe56aE6oIrFuQeQ 8PDxyR9WjanN6 KPXxsWEoBTwpPND3Y40zu 4X1NAGpWBYjHAK1dDX0uT 1hbGlnbjogbGVmdDsgdmV ydGljYWwtYWxp C712PQUknJqyLc2roFT0K 1FcIem7TGXlfHnzDD0zpX BgSYmlPh1qoJwxnGodXX7 wNTBpbjtwYWRk rZ0jYLAblOAuyUpmEQ3bO REmvxtyr168JkUaYUI1IB XkvSWuM9RdyZ7aMsIwKWM gJKBdK1EabISr UFzdK055LHtyHvB1SQIla fDuC4RpXCNxpYrfVdZ9l6 R2Oj6SXLydJJ5hrmXxSD5 dezP1C7MvPyiz dHI+OP90SRJeFG71rJDco RXmz3pzqHu1OhPaBRWqHC P7pKvdAAuuv0RoGEPvE59 mzVJfo8X8OZYg hFxqjVQqSlFgpCH3gP1yZ Znwrilzj6isyortQatgs1 kreh87hK04U51lMPbkPVC oPSIzMCUiIHZh lCuqtd8lcG9jKu0+PGNvb QZ1zIP9eO3gIjPiMfZ6MM tiU619LzVetFUuMvbue3c gz2nnxAf4KwKa JORyxkMytGxjVIY6i5LhV d05Y41rZIhgVCAuEINxRL WyWVHwbTmprp9xhC6yFi4 +VV1nr7oelc23 iA22fIK+PWBkSUS5gHeuT NpzPQQuyP8xDEquUtV9CH IiBsWnoF39yVZyNFxhZc3 zqGzhfEljWT5s HMXqmmmon656FnQag3tlE MFyfHWcFAowXPY2Y09zx3 T3PXKbUOHnMXZ4dOX9eE2 hbGlnbjogbGVm dDsgdmVydGljYWwtYWxpZ 250CRKvkUveGoMbuIYiW0 gjlaINUD0wTxmplHF+PHR aAEP9rGvqMDbn JRVnuY0eLMFhI4v4FdIvK vK2GJvrB7GbeqB2VKWpkW AwXYVdxGADtZ6hdrbzn2a vcjogIzAwMDAw XLl8VIr3SCTsqFtwZaWhB GE8FpO6KHB5tKFcgG0clR rwprfsvT4kJvp+RklOOjw vdGQ+PHRkIHN0 mDhqXRxwYKZddF7pQNZrB 4s2GqLdWhC3ERaeU5Oxxp P9TVFzkMIbAEZatFINhU2 nxnwoi9fgguwz HyNmMRIkAQa2KMc4VDNbu WhvNaQnZWR6BrF1QLS9nE XotZ5hhOtdcmvfdA1oXjp +TVJOOjwvdGQ+ YFYhFAY4iKrlVGfzMSFvp A0cSFCpL3y7KgMhVvZ1GK acN2ChzoN1URTujXMnIEF hjHJAtJ0siwoq l9oipurvHqHvJRYdTHc3E Sh2EWHytEhaEvCzPJM0Hx R2UKP7tQReyI9vuWymmva wqQ8hLbt+UGF5 ENO5OZ25WB75X5XiUhroy GFibGU+PHRhYmxlIHdpZH RoPScxMDAlJyBzdHlsZT0 rXq5uUDRoJTQs bGxh (more content not included)... Normal [facility] Coding Summary.on 12-30-2021 Coding Summary. CD:[id number]:[id number] G h0bWw+PGhlYWQ+GN0ZSPW uV15fqKMclU2BW9eTXX4N AWEFWQKGXL3ODU6mvEF5U ZusE3MboyBs NhppgPJdZG46KNg5OYM2c BhnHGeexX4gjZBeL1r3Rb XqUY29aS41GKiwUYYbTpQ 3LjZpbjsgbWFy Y3ogPkRepJSnCbp+PHRhY mxlIHdpZHRoPScxMDAlJy DkhVwlSB2zSt8zQNRwLMF vbGxhcHNlOiBj p8hkSFPlORxbXH9dsWvbD 5WeeQC4NQTuu2p3Ak53sK I+MFItAPC6aYqjLZcba76 4HjUtv8qtXOB0 fLFqOFjtCZQ9A62mo1Z2G MMlOMTyXVO0aQW4rB2dvI acdskvQ3ZxlQXgNtN4IGK 9uGBlyH7kyZjo smumpW7gMxg+U49UAE2UB YZIQR5DHnh1H2DsIzmonW I+MJ98BCBpJU83rLQuaGM bd8ccyAb1EvNa XKCnUQP5lVieRDsud4YoK FKlN87koTGiy1L2DYKrwP fqlQFsYpSvxPH9zS3nJWv dpvczn2podlmj Nzcuz2hfyg64zH24W72dD NxmRMAuHLQ5HMIxDXCelZ aost9zkC8yLj0+LKwlq5f nr7wwqXl0NoZl MJEfcaImwUlsQVF7r5FoP c38F7NhhDoml0UzPlu5rx 33nJYlm3S7cSJ3LNeqZPO zdR4ySOqtFmL7 RJDpCaRctC74jQNuEMndC b3tqYxohDsdUR6lJYDaog lcUZIvuK8jQEScnYSwaQj eML6nCCKmbpnn h777ZiUwCMX8BJYymEMnY 3ApkB2uVuZpJNIgXAYfR4 BotLPcOLpuY468IRgrRuS 8TOEaraQmO7Ey OOKjpEceSlS2d3U3Xs7Gm 8LhcreqDGR5TVtmMHEaAm Q2ZiOlBxZ9A4TgAtb9SCF atArdVQ4jV0Tu NGJqsewrafiikCR0VYWnR VIdqF32tEDyDXovJq3ui8 D7n910DRIhYGUrbB92Tn9 udDogMTBwdCBU jJ2bfbmto5rfjftrElCgK GJaJEk4ZNs7AZAfsJrvFy YsAHO4HoV9FIK3rPCxsT7 tmNhryjjrrJ0e Oyc+M08piN2jDMW8GCH9m hsuHULpmmFeIJ47AF79O6 RyPjwvdGFibGU+PGRpdiB ovPcgVF8pJtZe n9vzk4FvPOoyH0XxYNYaW KipIjg0RPVmUYV9oMK4iD 0pHUEiCTyps9T7tIK4D4C rzlEhvf5lb3hs BRXpNSgbS47sdBOlh9J4V RHmrPD4HMRbsGypDnTtkW 93Oyc+WQLgdUkqv3PvHbr js5yub2pntHw8 BhDbYYNfrdNcvHrgBIF5i 0VaIw46G76nUAkwEHLxUV BvTBSdUAQwrZytzl8aiW5 wIi8+PGNvbCB3 nNW2yE1rRHVyDsD0WYeiU 987JmSkhDZjXkbkg2pnt0 siiAp8YpJdPWFsjiShuXj sYUP6n5ZqMv78 D52vQSuuMSHcCPZeBOXjR KIetDdkgi4drO9uEi8+PC 9bu4olgk87pM07oOZ+PHR eSUK0dWrhOTiq CNOrzE7vGIqfHvN5IYKuD rIbcD80vCByYFgrCm3jeM zfnTgiWX3hYXHpfzrfh00 6LmOzb5klYXCe sLQhJAaaTIY8B26di0R8D YMlEWJqZGL1zCB0dQ9fmD lnbjogbGVmdDsgdmVydGl zUXhbDWvdG640 IHRvcDsnPlBhdGllbnQgT sBlVQi8C9PvAwo1TZUbjF nsGY9hfGOlKGmpNd2ygMj deTjmJS8aXXTe ghkwd346FbLsg7jaRJAxy KGySIvnNLS5X21ro5W9AH SmEAJfVDZ5nQV2nC3ztHk nbjogbGVmdDsg ujTesUpsLKicOPgsZ721Q HRvcDsnPkJpcnRoIERhdG E0OQ88RV92oSHot2A5lWJ 6N5SrKQIuarqb iqvhoYT1CCTzNLGobN23M p4zwGecDr7cAGWxFJL8TX DcxNGgS1OuqZ8uDkJsFPY sKKUrR3VvbTBb LMmcX887YRbxPiS9BVMzt vZqD6MiSOVvxZlyXmG7r9 G4Yv9AK8M3MG75ZF51zEZ ct4X2xNJ0R4Mm MYZpwrvxolbniFI7TDRmH LPzjV23Rh0xrSzoEi5cUL IyOKG0TMTbpIOiX2RtqI7 yOiAjMDAwMDAw L1YngHJySBluN573HCibR rZ4NXXocaIiC5TjRDCcrM xlZwS1o6O5Xh1SKIb3SE7 1GW73rTOnt1L7 nGS7K5GlGKFjqexvoqghe PF4EQOhNEQoeF01Eu6fiP fkOz0gYCUwOYY7PHXgwKB dZ9RtpO9xQsEd PVOwCRNjS9AjrDApFBdrR 379WHcpSkD6OZCoxnAtN0 KtOMGzyIcqIbP1y4I7Aj1 XHGLuFW83BJL4 uKJ9PI96XL70K6IhTndpx GFibGU+PHRhYmxlIHdpZH RoPScxMDAlJyBzdHlsZT0 xHk9gGRUbUKIt kTtfuAErPiJfm2ioTZAtI TrgZI0dqSwuW0ZytFG6EG Bzy4w3Yi08M58uG2XlqAW +VANmkRM6oBI7 hN7wJaKgPvK8AXdsZ749D lKeyJTkWjmta1lqo8iocG z2BgR0VPMjktVntKisXPL 4g8LyGz91B51e IHdpZHRoPSIxNSUiIHZhb Fymsx1kyA8eAk8+PGNvbC A5rTN3cP0jNnThObF4TYh iT062WtObiCYs Rpjcm5pnp3tqyLm5KhCiA UDrepWsqOnvEEH2z1XuNo 49Z9OnpNogv7FvBag2fg4 5eXQde8O2rOE6 O5SiEKFausgsfUSnjOwcL V8qROYfjeewQHEqdO7mPS FgO1m8NaXzYdY1MQhzE4H kqzP8MRYlzCTw OQgvNRP4Y93ei6M4DUSoY SKyKWS5pTV9pB0cjHmisn ogbGVmdDsgdmVydGljYWw nBSkvM850OOBn wGlhDQYybK5cMZLgbYDaj YhgGW9fVNSvmxpjQrKMP4 gwYTmIEZkTSC8bVaaslIX +JMTxQRL9nVbt VCkqXXDezM3zCKWuL9f7J cDfDaX3MHeeP1VpFAEekd ulUb59fQ3qHmBfCvW8ZKt aT4XxlwX5KHJm oKFgJEdzDBF0G86hl9O9U WLrIVSzCNZ0uPN8hI8hqU lnbjogbGVmdDsgdmVydGl yRDscNHcaK450 YUBqdJriHiA9XcNvTgN9V qw2G5TfYjr2ZSSgkDnwIP 0gyRYuWWggJv7ygRtjbVl bPO2eUPIymrtl AYFldI3wWYNbgAFtoFgmS R6cZXMiidvpg574WyXuEB Y0PLPhmQAyK0VspN4dYoS rZYMpNSKvD3Ex yQIdVOidI193ANvnIgI2J AEfwjTtZ8CqZYRviIjvUl Q0o0B1Tr02PCVTZFMmkzc vdGQ+PHRkIHN0 sFqcHKewDRRduP8tMVPgK 7l6ZmGsZpI0GNgyL0XzVT VstqygDv84jA2hCyQhLjD 5CNsbG3TgywV3 FOMnjYBdEKbhWME5O95tx 0Q5XYEiNFHyTRV3eKK1hT 1hbGlnbjogbGVmdDsgdmV ydGljYWwtYWxp D564KVJwkLloBv7dfRC8X 9UwHur4UBOmuYlkMY3jwA SkJKqgYb5llKqsgEwhXE5 wNTBpbjtwYWRk tC4cBJBksXTncHmfHT1bT LAkahdkp238MsIyBCM7ZA AniBEdA9StvS8yHjEsBQY jOVTrQ6GuyGOa YIwqL619AZybBlQ7IFFbv bOvB8OmTIJawKayRoD4m7 Z2Mw1MoVZbFZKrVH61ZB6 0EI24I9IrJnhd dGFibGU+PHRhYmxlIHdpZ HRoPScxMDAlJyBzdHlsZT 9lCt2oSUNzDUFkgMeheKF qNlJtj2tyHCGb VRwrQI7jwFeyJ7KewCR1A VHmk1o0Vr11V70tH5HnwR A+OTBmkHY1yVB2jT2hZhR wHdD6UQpdB179 YaFpzQWsFjaoy1bde5tzi Dc0GxQxSRGamrZizEotKY F9w7BcEo85I81iBJnjLAY oPSIyMCUiIHZh yIllxi5dwN4xYf6+PGNvb TV9dMW4lI1yOmWbQrU1PM nlE720AfEcnVAfVsnxG94 bT9AbnUB+PHRy Jpu1DTJvcPycFN2zmLXeW MjnFk9oJII9UdHqXoZqJY gxB5UsDSFvqcmwoiyrgQD 2IQGnTOFovO47 Si8ynIndNl8hACGlROB4Z NDjlIRkO8SxrE0pRwBxYE OkWZFfE8DgoZOkFGlxU00 8AGzuXgJ2JKZr niYoD3KxOPFcfAwjRbJ0q 9H4Sy3OhZrkjHOaLT4oJp AvEOt2W9FmMfz7UWWbkXc fYF9pbTXwWDef Bc9mnIzdhLljQW5uZPMeq qxwu988GbNhx8sqRWBwwE XfAXiwKZS2H67uw3L6QYZ wLSRcIYJ6wON9 zE0woGyotdmrfNGevCrlk rUlsKenTUzcOYnsR211PE TogOjtFaJZUxw7T2JgCez 9CBEsiCiuZI3d yOMnQVloHi0ntOklcCxwY S2kEZQqggwfl664GcTcl8 ugMBCfbLPyCNpxVML9K15 vp6M2RMKuQKCo HZI5kOF3eL8ewVvxgdeal GVmdDsgdmVydGljYWwtYW apD899WSSidBaiHs8QKzg 7F9AsWdx0PCOx uHzfDC7whJHjWCrdEc9wk ZwsnPugGV8tZBXkpddje9 12SlVce9anVDXnfDMhBVh sKWQ5V89mx4V0 XSAqPMYxCYI4aEV6tQ6hq GlnbjogbGVmdDsgdmVydG uaUEacZStgL366AKKlaJs nPlBheWVyOjwv dGQ+EA18ih89M2IwCrywV vt0FBEmQYC8mCZ9nS5hWU WjRDiog8B3cIB8B7MrokK wzm5lg1clARPx ZTog (more content not included)... Normal [facility] XR Spine Lumbosacral Minimum 4 Viewson 12-26-2021 [...] Bartholomew M.D. Transcribed by: ESTEBAN Technologist: DEYANIRA [facility] Consent for Treatmenton 12-16 Consent for Treatment [id number]#1 .00CD:127 [facility] Consent for Treatment [id number]#1. 00CD:127 [facility] Legal Correspondence Officeo n 12-25-2021 Legal Correspondence Office [id number]# 1.00CD:127 [facility] Office/Clinic Note-Physician on 12-25-2021 Office/Clinic Note-Physician [id number]# 1.00CD:127 Normal [facility] Orders Officeon 12-25-2021 Orders Office [id number]# 1.00CD:127 [facility] Patient Correspondenceon Patient Correspondence [id number]# 1.00CD:127 Normal [facility] Patient Correspondence [id number]# 1.00CD:127 Normal [facility] Patient Correspondence [id number]# 1.00CD:127 [facility] Patient Correspondence [id number]# 1.00CD:127 [facility] Patient History Officeon Patient History Office [id number]# 1.00CD:127 [facility] Physician Orderon 12-25-2021 Physician Order [id number] #1.00CD:127 [facility] Office Visit (Cardiology)on 12-19-2021 Follow-up [...] from primary care physician and vascular/Intervention al crystal mounter for further evaluation management of syncope and [...] his initial evaluation appropriately with a 7-day recruitment specialist and an echocardiogram. Patient also underwent a [...] Lisinopril 40 (more content not included)... Normal [place] Tobacco Screening.on 022 Fall risk assessment a) No falls within the last year [facility] [facility] DO Work Phone: Tobacco use status [facility] b) No M [facility] 100 DO Work Phone: Falls Risk Screeningon [...] from primary care physician and vascular/Intervention al crystal mounter for further evaluation management of syncope and [...] his initial evaluation appropriately with a 7-day recruitment specialist and an echocardiogram. Patient also underwent a [...] Vital Signs Recorded: 31Oct2021 02:18PM Heart Rate62 [id number] Olkqxqmqk04 Height5 ft 11 in Jdjaqj723 lb BMI Neyyslxqhx51.82 kg/m2 BSA Calculated2.2 Tobacco Useb) No Fall Screeninga) No falls within the last year O2 Ujwlbvgrkd99 Physical Exam Constitutional: alert and in no [...] bulb caus (more content not included)... Normal [place]12 Tobacco Screening.on Fall risk assessment a) No falls within the last year -Cardiolog y-[place] [address] Work Phone: Tobacco use status [facility] b) No M P-Cardiolog y-[place] 320 Work Phone: Tobacco Screening.on Fall risk assessment a) No falls within the last year -Cardiolog -[facility] [place] [facility] [address] DO Work Phone: Tobacco use status [facility] b) No M -Cardiolog -[facility] [place] [facility] [address] DO Work Phone: Tobacco Screening.on Fall risk assessment b) One or more fall s in the last year [facility] 250 DO Work Phone: Tobacco use status [facility] b) No M [facility] 250 DO Work [...] Daily, # 90 tab(s), Refills(s) 3, Pharmacy: [facility], 177, cm, 09/11/20 10:31:00 EST, Height/Length Dosing, 98.6, kg, 09/11/20 10:31:00 EST, Weight Dosing cyanocobalamin 1000 mcg/mL Inj: 1,000 microgram = 1 mL, IntraMuscular, qMonth, # 10 mL, Refills(s) 3, Pharmacy: [facility], 177, cm, 05/31/20 8:16:00 EDT, Height/Length Dosing, 98.6, kg, 05/31/20 8:16:00 EDT, Weight Dosing diclofenac Top 1% gel: 1 sruthi, Topical, BID for pain, 60 gram, Refill(s) 1, apply to foot & knee, [facility], 177, cm, 11/01/19 15:36:00 EST, Height/Length Measured, 99.5, kg, 11/01/19 15:36:00 EST, Weight Measured lisinopril 40 mg Tab: 40 mg, Oral, Daily, # 30 tab(s), Refills(s) 0, Pharmacy: [facility], 177, cm, 10/03/20 14:10:00 EST, Height/Length Dosing, 98.6, kg, 09/11/20 10:31:00 EST, Weight Dosing triamcinolone Top 0.1% Crm: 1 sruthi, Topical, BID, 454 gram, Refill(s) 1, to affected area, [facility] - [place],, 177, cm, 12/04/19 10:28:00 [...] Chronic low back pain / SNOMED CT 557158375 / Confirmed Osteoarthrosis, generalized, multiple joints / SNOMED CT 260400591 / Confirmed Diverticulosis / SNOMED CT 579741017 / Confirmed Acid reflux / SNOMED CT 133399836 / Confirmed Hiatal hernia with GERD / SNOMED CT 7139727982 / Confirmed Hearing difficulty / SNOMED CT 464935984 / Confirmed Heart murmur / SNOMED CT 880462686 / Confirmed Hypertension / SNOMED CT 0530988186 / Confirmed Dermatitis / SNOMED CT 6981714544 / Confirmed Canceled: Hiatal hernia / SNOMED CT 930882875 Canceled: Osteoarthritis / SNOMED CT 6059188379 Histories Past Medical History: No active or resolved past medical history items have been selected or recorded., SMOKES TOBACCO Family History: Hypertension Mother Alcoholism Grandparent Procedure history: Epidural injection of lumbar spine using fluoroscopic guidance ([id number]) on 09/11/2020 at 85 Years. Comments: 10/03/2020 14:10 Kim Bhatia RN L4-5 MART- 80% relief Epidural injection of lumbar spine using fluoroscopic guidance ([id number]) on 11/01/2019 at 84 Years. Comments: 11/22/2019 10:10 Dalila Griffin RN L4-5 MART- 97% relief for 10 days, now 75% relief right large toenail removal on 10/18/2011 at 76 Years. 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 heel spur on 10/18/1996 at 61 Years. Vasectomy ([id number]) on 10/18/1976 at 41 Years. oral surgeries on 10/18/1969 at 34 Years. Tonsillectomy and adenoidectomy ([id number]) on 10/18/1941 at 6 Years. Colonoscopy ([id number]). Social History Social & Psychosocial Habits Alcohol [...] and perfusion.. Gastrointestinal: Benign, nontender.. Integumentary: Warm, [place]. Neurologic: PER PAIN CLINIC ASSESSMENT. Plan [place] [employer]hesi[employer] (ASA) physical status classification: Class III. Anesthetic Preoperative Plan Anesthesia: Monitored anesthesia care. Anestheti (more content not included)... Normal [facility] Comment on above: Result Comment: Elec tronically [...] Chronic low back pain / SNOMED CT 979698470 / Confirmed Osteoarthrosis, generalized, multiple joints / SNOMED CT 309838920 / Confirmed Diverticulosis / SNOMED CT 241111868 / Confirmed Acid reflux / SNOMED CT 412211770 / Confirmed Hiatal hernia with GERD / SNOMED CT 7394419932 / Confirmed Hearing difficulty / SNOMED CT 069575414 / Confirmed Heart murmur / SNOMED CT 669166213 / Confirmed Hypertension / SNOMED CT 6429402621 / Confirmed Dermatitis / SNOMED CT 1814708995 / Confirmed Canceled: Hiatal hernia / SNOMED CT 307511854 Canceled: Osteoarthritis / SNOMED CT 2041246894 Physical Examination Vital Signs 08/20/2021 11:22 EDT [...] vomiting. Plan Transfer/ Discharge: Condition stable. Normal [facility] Comment on above: Result Comment: Elec tronically Signed By: Lenard Jurado DO, Damien Ng.pao\Date and Time Signed: 08/25/21 08:04 EST Coding Summary.on 08-22-2021 Coding Summary. CD:[id number] G h0bWw+PGhlYWQ+KR6XDYL jX89plYAltW2RL0oHRR7A OCSQUNUXHL3NFX9zpDK9Y NflA6PijxSd KefrqETyLK91ASn0TRR3j HdfPQfpkI3brACmW6w9Yt AgRA54eT81VUsmSQWcFxC 3LjZpbjsgbWFy S6rbRtMltDMaNzo+PHRhY mxlIHdpZHRoPScxMDAlJy WtmIvaSZ8lZd5eCFOaBYZ vbGxhcHNlOiBj b3seBDBvNLmwSQ3ndZczT 3VirMA2RIIvn2n9Af98jP I+EENaDUC0vLlbNSdfs21 9LyWpr4guWYY6 iAMzABqvRWR6P92ng4J4R ASnDYSsDYS5nVY1jJ0aeG pofojpP1IgoGBqPmT8MRO 6mIUvjZ2leHdu waocoZ4sHzy+R25HMA4KI BOFNC5WLvz2K5ShHtxvsO I+QC53BETiLG74dPEuuMM bq7fmhTu5CxCd TTLiZXL3uSlcJLeka1DkP BGdJ04tbDQzd4C9VXVtiZ njgWOlOdNhrPM0fP3hFPf wxlojy0fyjigw Xvuym9sxuq06mE41O21cT QazGWXrSTW9ATXjQTXrgY cwjl3dlI7rMi0+YWyph1r ic7vkaWn9VhMq BSSnxoGzzUofJGV6j9PeV q62K3JuyDala4KvCma0rl 62oFFtq9F4gHW7UHieYLQ yiK2zDWcfGmI6 NREwXuZluN40jGXtUBlmY s3gkHawrBfaOS1lHDZrxq ngETHeuI7nAMKnaXFdhZn iAD4xWYQzwamd n643WgAlOMX0GHDpkVWiQ 5RwdI8nFgCrZBBlCYZfU3 DklBBeKVvkB632YMlqVtJ 5YMPrxvPuA8Va ZJNfcGqjQiR8a9O1Ky1Fd 8UywbbaOFR9DGfhRDBdMt B2QuKaBuQ9S1BeNeo5IIW dyEyuNS2kN6Io OOSiwaddtjvqeKZ6HXJiB BHtaJ43hYXbLGnuSt3ps7 O5r190UBUuTMVuvH07Wb0 udDogMTBwdCBU kS2svirmq2xdugcsLgScP LRkEKd5RVz3TNKkzZgvQa LtHFI8YhY0HTO5mPLudZ5 xzDvlsqdvyH4t Oyc+H37pkV4dCUZ4SVG4g edfKGTizxVgNM45TA85Y4 RyPjwvdGFibGU+PGRpdiB aiOflYP0qWdMb e1uyl6BrCZzjB7BkAQOxN BmlWsg3MMOhOFW0pWY1wM 2cAHCrXGaiy0P1lZT3C8P hncLujn6zq3xm CAPgGStyL02yfDOgl0B6J WPbtQM2KKJzmQffLvXnwF 93Oyc+NZMlcOxje8XzIsh jd7ffi3eziTi1 ZsMeJTBvweVqbTjtERN1l 8GqTy66K47tISqlDJUhUH EaIDVuCZHgbQenpz0niQ5 wIi8+PGNvbCB3 wTH0sE9tLOLeKgH3JWmjB 150SzGerXNwJomms0mmy9 lshAd5AoHfRUZrqiTpdEl vNEU7c1KpZy17 V39xZTpbRTNiAMWdAKQsQ VFkhLwcdo2uoW2lMn0+PC 9bn9kiph46mV69fGH+PHR sTPM5dEqbKHux DEJvjC9jZYzfBgX4NRHiG hHtfL86bPZbFVrxMd9lxF xwrVfcJV7bZMKwxtadh73 1PhHav8rqHCRt pTUeMIshFMQ9A14kv1I9U ZGwJEXiAMH3xSA1lW7cjY lnbjogbGVmdDsgdmVydGl aOBuxBTrpB574 IHRvcDsnPlBhdGllbnQgT oEeZKp4W1EwPrr0PXFyaF qrQQ8neRKrJDguAv4bgFn qgNdhQJ9jGFFl zpxnv406BlMdi1rlSOZyf UGtRBwvGXC0F77mu8W2HR JeBBAyQBH7uGR1uE1yhXn nbjogbGVmdDsg ebBhtIzaBOkqWQlvU096D HRvcDsnPkJpcnRoIERhdG M4CL87HD38qQXnq7C9vVB 8Q3MjMFNwqldj blqbtDW8BSVqSJLauA79R d2owCxhXs0cJHSjZKT7HF OysFLnD5TnhC9jXnIgWZX fVLBnH0BflYWt REunN089GVeoKmP8HEDgb lUzB6PwSHNnyMftNaQ9h9 H6Op1RU7P0BU16JO19iAS ty5I9fQX0A8Pd PGAfsnvwzkrycHG5IAIrQ DAfiV46Gz0yoZfuBc2bHS CvBFZ7IWTlrDAcG0MsgG5 yOiAjMDAwMDAw Q4WgeHAwKBcvE696QNdyY uV2KMUyyyWvP1BeIETqyW rgApH1j0T9Cm1PJKo5SG2 5CT14fOWlc9F6 dEG1T3FtNHLntehhilhgn GA8RZLdGYKgxP83Ue2mqY vzGi9cCEVeVDZ0TMVaiHR eB0AdxT5xVhSp VRFqFHJnC7NeuWDnAHhlI 317SLtjHnD3RRGkkeGbT7 GtITVpnUfeCiU4l0N3Ag1 EFGHzFZ60COX1 lVC2UQ57UR05Q4TmIylqp GFibGU+PHRhYmxlIHdpZH RoPScxMDAlJyBzdHlsZT0 eGk5aHRClTWWp iTujyXBrXmPvj2jdGWAlB SxfQB9ltNtfB1HstOU4TR Gzn6g8Ma32G66aO6ArvNO +PBUtoZU8mEA9 uN2uXlDxCwB2LGioB230Y jEhaBLpHbkhg1zpi7denH p4NxO3AFCfhwLndOxqSVC 4s6FtGu27G43h IHdpZHRoPSIxNSUiIHZhb Mtmux5qqN9nWs5+PGNvbC X4mTU4rA3yXbBoBnX1UOf rW601UyLbrZPl Jcwty3xsc0fodOx8EyAbP RGhhpPwyAsdKLB0c0PpDm 80N7GxgYjan6PfQgf7vd7 3qVKge8E7yDM5 S5FjUDOctrzdoAFpcRpkV T5oYDHvycijEWSpfS6rYW ReD4c0WmEoYoF4TIvjT6B avvK4ENTsaJAj IBedBCP9J88qr7V5HJZtR EXlDEC3sXJ6fN3tgMgppw ogbGVmdDsgdmVydGljYWw fDIywU002ECCr tZuyHDMsmB5iDXSsgUJpd LxfKI3wBPEdqcirWxWLO3 mvZVrEVLoBVM5qFvkspFU +QATpXEC7wUhn UFnoBUMxqK2oVFZgV1q0L yWvEaM4RFadR8ZiXCMqeh jvZd60zN8oZfTsHiY1SNz mW2SqcfU3BDMd xXCaTXcxAKW4I60ek0M5B UVnBNIvJJR6dMH0nR6nuH lnbjogbGVmdDsgdmVydGl iAGzjJUoxZ456 VKXkjRmvUtI2OgKaIkS9P vs3C7SmDin9MVSsoTjqBZ 3lzOHxKXvaIx0vgKsifSk pHX6fADMxiugl KDQnwS1zKOUqfRNakIogK Q5pEHXsiudrj344EjVpIC J6XFBimROtP6CubN9pRcF kBXXjHBSiE6Zq yPRcFVfcU989AAuvXeO7U FPwfjBzB7OcTECxuCvkLm E3o6R9Ui26QLLITDNuacs vdGQ+PHRkIHN0 hTnrQOaaHZZgpG6kXDKoK 7b5VuCdIiS4XGgoB7OjGR XlotorRz90eG9kLvYnMhY 9CDvpO8UlgxU2 TYAmqIYpWNbtNOI2M44jj 7V2OMVaGUBfRFB4tTN7yY 1hbGlnbjogbGVmdDsgdmV ydGljYWwtYWxp A513STDebCasIw5dgYE5Z 0NoJlk1UMEnjAwlQL6nkG ZgERwmYw4tcByubKaoZX5 wNTBpbjtwYWRk lI1nVPKzmNVvpHsgFE1uJ BIovobcn021QuLfSOO0FB WdkTNlW7NprZ3fXoMvGIK dSPVdS4MxkTMd PGsuY657MKljGeN1FDOjg cZaL3IgQNQtwRfgCjI3w6 K0Yo6JFJrpXT1owaPnYG6 fqoK8L9JiPnab dHI+CM74TRPxEU75aYUqm SBvv3fvmZd2HtMuCBUmDE D8oLwaNCjoy6RuJTWfG89 tdNHuh7W8NBGl uEssaCKvLtUweRQ8kZ6dQ Nvhqpgof5aadyaaRcykd7 aqhv76lN77F51gQCqhLHE oPSIzMCUiIHZh bOwprr2ogY0iRl5+PGNvb FR6mJC5uE4bViUuKnI1QV ylI425AeQkzFAtRhjvp9f na9douYh3NdSw USViscQquVmcJCB1b1VwC u56X99vPHxiGBFtLAYjLC OmDYDekDvwaw5nkM5uNr9 +OE5sg9eawp84 gH82sPJ+BBHdPGR4aUbkW ZlrUQNmtS9cHWazQfQ5EV ChLfLvzB52mVWrAFkrNy9 naXdgbQfbWQ2j EKWhlfueh695LeMox7blM FZrhQBuWEbuCYA9K90jd8 W9KGMaYGVrYTF0aKF2wX5 hbGlnbjogbGVm dDsgdmVydGljYWwtYWxpZ 284WVLthHkgMdGaaVBpE2 lrmaNKOS3vCbfbfDE+PHR wCGQ8lEpqJNyt WEXqoK2aNSZbU8x3ZiDgS bY7WJahL7GuuoD3HHJsxI ZuLPPsyOWNcE4mjnepj2u vcjogIzAwMDAw EDk7FJm0AEOqhKwfYgWrN LA3EtK2LBP5bNOzgA2xoF ijysmneK4iUoq+RklOOjw vdGQ+PHRkIHN0 vVqwYBitJLBzcI5pRPWsE 1f1VlZwZoS5MNdmB9Ijbv X0TBDbpZQbOYQqnQSEsK8 mnyulp4gwhrul IjAfTPOqCFn0ZHo5TWUhd JscUwSuDDE7RoG3BHV9lS GgyY7utJossxrzqQ3rDts +TVJOOjwvdGQ+ SGWqNDA1bZylQPhjNZTed H6jJCPtE7j9KiWmDcX3AG dsA8HcqrK7ZHFgxIDeBLU xdLYSiJ7gdmiz a3fnhsyvFoXtRJToDDy7K Ii8MKCsbIlhVwIgRYO3Gg R1QDA5wCCecE8rpExbuba fpF4zZni+UGF5 NJO7HM96MM52Q5FxDgfzh GFibGU+PHRhYmxlIHdpZH RoPScxMDAlJyBzdHlsZT0 uIb4dWVDfSKLb bGxh (more content not included)... Normal [facility] Operative Reporton Operative Report SURGERY DATE: 08/20/2021 [...] condition. Bayron Rodriguez M.D. lr Dictated: 08/20/2021 [id number] Transcribed: 08/20/2021 [facility] Comment on above: Result Comment: Elec tronically Signed By: Bayron Rodriguez MD\.br\Date and Time Signed: 08/21/21 17:00 EDT Consent for Anesthesiaon Consent for Anesthesia [id number]# 1.00CD:127 [facility] Consent for Procedure/Surger yon 08-20-2021 Consent for Procedure/Surgery [id number]# 1.00CD:127 [facility] Consent for Treatmenton Consent for Treatment [id number]#1 .00CD:127 [facility] Discharge Instructionson Discharge Instructions [id number]# 1.00CD:127 [facility] IntraOperative Documentson 1 10-20-2020 IntraOperative Documents [id number]# 1.00CD:127 [facility] IntraOperative Documents [id number]# 1.00CD:127 [facility] Main OR Intraoperative Recor don 08-20-2021 Main OR Intraoperative Record IntraOp Document Type FTPM Summary Primary Physician: Bayron Rodriguez MD Finalized Date/Time: 08/20/21 11:12:24 Pt. Name: MACARIO ASH/Sex: 1935 Male Med Rec #: [id number] Physician: Bayron Rodriguez MD Financial #: [id number] Pt. Type: P Room/Bed: / Admit/Disch: 08/20/21 [...] Performed Anesthesiologist Surgeon - Primary Anesthesiologist of Terminal Make Up Operator Record Time In 08/20/21 11:01:00 08/20/21 11:01:00 [...] RT(R), Kelley Role Performed Scrub - Primary Lozenge Maker - Primary Management Retail Intern Time In 08/20/21 11:01:00 08/20/21 11:01:00 08/20/21 [...] and tissue Entry 1 Skin Integrity Intact, [place], Warm, and Skin Abnormality No Dry Outcomes [...] INJECTIO (more content not included)... Normal [facility] Main OR Preoperative Recordo n 08-20-2021 Main OR Preoperative Record Holding Area Document Type FTPM Summary Primary Physician: Bayron Rodriguez MD Finalized Date/Time: 08/20/21 10:23:19 Pt. Name: NILSAMACARIO/Sex: 1935 Male Med Rec #: [id number] Physician: Bayron Rodriguez MD Financial #: [id number] Pt. Type: P Room/Bed: / Admit/Disch: 08/20/21 [...] below for reason Last Modified By: Kyung Ceaj RN 08/20/21 10:23:15 Finalized By: Kyung Ceja RN Document Signatures Signed By: Kyung Ceaj RN 08/20/21 10:23 Normal [facility] Patient Correspondenceon Patient Correspondence [id number]#1 .00CD:127 Normal [facility] Patient Correspondenceon Patient Correspondence [id number]# 1.00CD:127 Normal [facility] Auth for Release of Medical Recordson 05-27-2021 Auth for Release of Medical Records [id number]#1 .00CD:127 [facility] Vital Signs Date Time Vital Sign Value Performing Clinician Facility 08-11-2023 12:14-0400 Body height 182.9 cm Macario Swanson DO Work Phone: [facility] 08-11-2023 12:14-0400 Body mass index (BMI) [Ratio] 30.52 kg/m2 Macario Swanson DO Work Phone: [facility] 08-11-2023 12:14-0400 Body weight 102.06 kg Macario Swanson DO Work Phone: [facility] 08-11-2023 12:14-0400 Diastolic blood pressure 88 mm[Hg] Macario Swanson DO Work Phone: [facility] 08-11-2023 12:14-0400 Heart rate 68 /min Macario Swanson DO Work Phone: [facility] 08-11-2023 12:14-0400 Systolic blood pressure 136 mm[Hg] Macario Swanson DO Work Phone: [facility] 12-09-2022 11:50-0500 Diastolic blood pressure 78 mm[Hg] Moon Parrishy Work Phone: [facility] [facility] DO Work Phone: 12-09-2022 11:50-0500 Systolic blood pressure 160 mm[Hg] Moon Wild Hoy Work Phone: [facility] [facility] DO Work Phone: 12-09-2022 11:28-0500 Body height 180.34 cm Moon M Hoy Work Phone: [facility] [facility] DO Work Phone: 12-09-2022 11:28-0500 Body mass index (BMI) [Ratio] 30.96 kg/m2 Moon M Hoy Work Phone: [facility] [facility] DO Work Phone: 12-09-2022 11:28-0500 Body surface area Derived from formula 2.2 m2 Moon M Hoy Work Phone: [facility] [facility] DO Work Phone: 12-09-2022 11:28-0500 Body weight 100.7 kg Moon M Hoy Work Phone: [facility] [facility] DO Work Phone: 12-09-2022 11:28-0500 Diastolic blood pressure 82 mm[Hg] Moon M Hoy Work Phone: [facility] [address] DO Work Phone: 12-09-2022 11:28-0500 Heart rate 78 /min Moon M Hoy Work Phone: [facility] [facility] DO Work Phone: 12-09-2022 11:28-0500 Systolic blood pressure 168 mm[Hg] Moon M Hoy Work Phone: [facility] [facility] DO Work Phone: 08-03-2022 15:25-0400 Body height 180.34 cm Moon M Hoy Work Phone: [facility] [facility] DO Work Phone: 08-03-2022 15:25-0400 Body mass index (BMI) [Ratio] 31.24 kg/m2 Moon M Hoy Work Phone: [facility] [facility] DO Work Phone: 08-03-2022 15:25-0400 Body surface area Derived from formula 2.21 m2 Moon M Hoy Work Phone: [facility] [facility] DO Work Phone: 08-03-2022 15:25-0400 Body weight 101.61 kg Moon Torri Hoy Work Phone: [facility] [facility] DO Work Phone: 08-03-2022 15:25-0400 Diastolic blood pressure 72 mm[Hg] Moon Torri Hoy Work Phone: [facility] [facility] DO Work Phone: 08-03-2022 15:25-0400 Heart rate 61 /min Moon Torri Hoy Work Phone: [facility] [facility] DO Work Phone: 08-03-2022 15:25-0400 Systolic blood pressure 154 mm[Hg] Moon Torri Hoy Work Phone: [facility] [facility] DO Work Phone: 07-06-2022 10:05-0400 Body height 180.34 cm Moon Torri Hoy Work Phone: [facility] [facility] DO Work Phone: 07-06-2022 10:05-0400 Body mass index (BMI) [Ratio] 31.17 kg/m2 Moon M Hoy Work Phone: [facility] DO Work Phone: 07-06-2022 10:05-0400 Body surface area Derived from formula 2.21 m2 Moon M Hoy Work Phone: [facility] [facility] DO Work Phone: 07-06-2022 10:05-0400 Body weight 101.38 kg Moon M Hoy Work Phone: [facility] DO Work Phone: 07-06-2022 10:05-0400 Diastolic blood pressure 82 mm[Hg] Moon M Hoy Work Phone: [facility] [facility] DO Work Phone: 07-06-2022 10:05-0400 Heart rate 70 /min Moon M Hoy Work Phone: [facility] [facility] DO Work Phone: 07-06-2022 10:05-0400 Systolic blood pressure 150 mm[Hg] Moon M Hoy Work Phone: [facility] DO Work Phone: 05-21-2022 12:23-0400 Diastolic blood pressure 62 mm[Hg] Moon M Hoy Work Phone: [facility] DO Work Phone: 05-21-2022 12:23-0400 Systolic blood pressure 140 mm[Hg] Moon M Hoy Work Phone: [facility] DO Work Phone: 05-21-2022 11:45-0400 Body height 180.34 cm Moon M Hoy Work Phone: [facility] DO Work Phone: 05-21-2022 11:45-0400 Body mass index (BMI) [Ratio] 31.66 kg/m2 Moon M Hoy Work Phone: [facility] [facility] DO Work Phone: 05-21-2022 11:45-0400 Body surface area Derived from formula 2.23 m2 Moon M Hoy Work Phone: [facility] [facility] DO Work Phone: 05-21-2022 11:45-0400 Body weight 102.97 kg Moon M Hoy Work Phone: [facility] DO Work Phone: 05-21-2022 11:45-0400 Diastolic blood pressure 78 mm[Hg] Moon M Hoy Work Phone: [facility] [facility] DO Work Phone: 05-21-2022 11:45-0400 Heart rate 80 /min Moon M Hoy Work Phone: [facility] DO Work Phone: 05-21-2022 11:45-0400 Systolic blood pressure 152 mm[Hg] Moon M Hoy Work Phone: [facility] DO Work Phone: 05-08-2022 11:21-0400 Body temperature 98.2 [degF] MD Moon Harper Work Phone: [facility] 05-08-2022 11:21-0400 Diastolic blood pressure 83 mm[Hg] MD Moon Harper Work Phone: [facility] 05-08-2022 11:21-0400 Heart rate 65 /min MD Moon Harper Work Phone: [facility] 05-08-2022 11:21-0400 Respiratory rate 18 /min MD Moon Harper Work Phone: [facility] 05-08-2022 11:21-0400 SaO2% (BldA) [Mass fraction] 97 % MD Moon Harper Work Phone: [facility] 05-08-2022 11:21-0400 Systolic blood pressure 139 mm[Hg] MD Moon Harper Work Phone: [facility] 05-08-2022 05:32-0400 Body weight 99 kg MD Moon Harper Work Phone: [facility] 05-07-2022 15:28-0400 Body height 180.34 cm MD Moon Harper Work Phone: [facility] 05-07-2022 14:30-0400 Diastolic blood pressure 73 mm[Hg] MD Moon Harper Work Phone: [facility] 05-07-2022 14:30-0400 Heart rate 80 /min MD Moon Harper Work Phone: [facility] 05-07-2022 14:30-0400 Respiratory rate 18 /min MD Moon Harper Work Phone: [facility] 05-07-2022 14:30-0400 SaO2% (BldA) [Mass fraction] 97 % MD Moon Harper Work Phone: [facility] 05-07-2022 14:30-0400 Systolic blood pressure 135 mm[Hg] MD Moon Harper Work Phone: [facility] 05-07-2022 11:09-0400 Body temperature 98.5 [degF] MD Moon Harper Work Phone: [facility] 05-07-2022 11:04-0400 Body height 177.8 cm MD Moon Harper Work Phone: [facility] 05-07-2022 11:04-0400 Body weight 89.81 kg MD Moon Harper Work Phone: [facility] 04-12-2022 14:00-0400 Diastolic blood pressure 87 mm[Hg] MD Moon Harper Work Phone: [facility] 04-12-2022 14:00-0400 Heart rate 77 /min MD Moon Harper Work Phone: [facility] 04-12-2022 14:00-0400 Respiratory rate 16 /min MD Moon Harper Work Phone: [facility] 04-12-2022 14:00-0400 SaO2% (BldA) [Mass fraction] 97 % MD Moon Harper Work Phone: [facility] 04-12-2022 14:00-0400 Systolic blood pressure 156 mm[Hg] MD Moon Harper Work Phone: [facility] 04-12-2022 08:00-0400 Body temperature 98.3 [degF] MD Moon Harper Work Phone: [facility] 04-12-2022 06:00-0400 Body weight 100.7 kg MD Moon Harper Work Phone: [facility] 04-11-2022 15:49-0400 Inhaled oxygen flow rate 2 L/min MD Moon Harper Work Phone: [facility] 04-10-2022 23:56-0400 Body height 180.34 cm MD Moon Harper Work Phone: [facility] 04-10-2022 23:56-0400 Body mass index (BMI) [Ratio] 31.5 kg/m2 MD Moon Harper Work Phone: [facility] 04-03-2022 14:55-0400 Body height 180.34 cm Ada Barnes Other [employer] Other 04-03-2022 14:55-0400 Body mass index (BMI) [Ratio] 30.96 kg/m2 Ada Barnes Other [employer] Other 04-03-2022 14:55-0400 Body temperature 98.6 [degF] Ada Barnes Other [employer] Other 04-03-2022 14:55-0400 Body weight 100.7 kg Ada Barnes Other [employer] Other 04-03-2022 14:55-0400 Diastolic blood pressure 64 mm[Hg] Ada Barnes Other [employer] Other 04-03-2022 14:55-0400 Respiratory rate 18 /min Ada Barnes Other [employer] Other 04-03-2022 14:55-0400 SaO2% (BldA) [Mass fraction] 98 % Ada Barnes Other [employer] Other 04-03-2022 14:55-0400 Systolic blood pressure 140 mm[Hg] Ada Barnes Other [employer] Other 02-20-2022 14:35-0400 Body height 180.34 cm Moon Huoliy Work Phone: [facility]Xkrsgdhtus-Ewddfv 100 DO Work Phone: 02-20-2022 14:35-0400 Body mass index (BMI) [Ratio] 31.63 kg/m2 Moon Huoliy Work Phone: ZK-Jvtefgfjxk-Lixzue 100 DO Work Phone: 02-20-2022 14:35-0400 Body surface area Derived from formula 2.22 m2 Moon Huoliy Work Phone: ZH-Kwpbkuyblb-Qpnync 100 DO Work Phone: 02-20-2022 14:35-0400 Body weight 102.88 kg Moon [employer] Hoy Work Phone: WL-Wuhrjykzry-Wibjjc 100 DO Work Phone: 02-20-2022 14:35-0400 Diastolic blood pressure 72 mm[Hg] Moon M Hoy Work Phone: RW-Bsgierfogc-Njivhi 100 DO Work Phone: 02-20-2022 14:35-0400 Heart rate 61 /min Moon Huoliy Work Phone: TJ-Ecrxnnhlmw-Ukbdyv 100 DO Work Phone: 02-20-2022 14:35-0400 SaO2% (BldA) [Mass fraction] 97 % Moon M Hoy Work Phone: SL-Txpytwbxtx-Qhvgkc 100 DO Work Phone: 02-20-2022 14:35-0400 Systolic blood pressure 138 mm[Hg] Moon M Hoy Work Phone: OT-Fpnflgqtve-Ufbeiu 100 DO Work Phone: 02-05-2022 11:52-0400 Diastolic blood pressure 86 mm[Hg] Bayron Zumbar [facility] 02-05-2022 11:52-0400 Heart rate 52 /min Bayron Zumbar [facility] 02-05-2022 11:52-0400 Mean blood pressure 112 mm[Hg] Bayron Zumbar [facility] 02-05-2022 11:52-0400 Respiratory rate 12 /min Bayron Zumbar [facility] 02-05-2022 11:52-0400 Systolic blood pressure 164 mm[Hg] Bayron Zumbar [facility] 12-19-2021 13:37-0500 Body height 180.34 cm Moon M Hoy Work Phone: FQ-Lxjiysgase-Kyxqix 100 DO Work Phone: 12-19-2021 13:37-0500 Body mass index (BMI) [Ratio] 30.82 kg/m2 Moon M Hoy Work Phone: HJ-Kdmlpbtvli-Signwj 100 DO Work Phone: 12-19-2021 13:37-0500 Body surface area Derived from formula 2.2 m2 Moon M Hoy Work Phone: UF-Yayntyeuum-Higzlm 100 DO Work Phone: 12-19-2021 13:37-0500 Body weight 100.25 kg Moon M Hoy Work Phone: KR-Rrtlmjwnky-Zjtfjv 100 DO Work Phone: 12-19-2021 13:37-0500 Diastolic blood pressure 73 mm[Hg] Moon M Hoy Work Phone: CN-Krnypskqbl-Qomxjl 100 DO Work Phone: 12-19-2021 13:37-0500 Heart rate 65 /min Moon M Hoy Work Phone: BV-Lzqmgaxzia-Ssudwc 100 DO Work Phone: 12-19-2021 13:37-0500 SaO2% (BldA) [Mass fraction] 97 % Moon M Hoy Work Phone: YQ-Dttscisecp-Gfvxqm 100 DO Work Phone: 12-19-2021 13:37-0500 Systolic blood pressure 174 mm[Hg] Moon M Hoy Work Phone: VN-Vxqqyddfoo-Horwhx 100 DO Work Phone: 11-07-2021 14:34-0500 Body height 180.34 cm Moon M Hoy Work Phone: SX-Cacgfbtjrh-Hylpan 100 DO Work Phone: 11-07-2021 14:34-0500 Body mass index (BMI) [Ratio] 30.82 kg/m2 Moon M Hoy Work Phone: TX-Efunmmdolc-Fsltns 100 DO Work Phone: 11-07-2021 14:34-0500 Body surface area Derived from formula 2.2 m2 Moon M Hoy Work Phone: AS-Wkrbgodymt-Eezfqi 100 DO Work Phone: 11-07-2021 14:34-0500 Body weight 100.25 kg Moon M Hoy Work Phone: XZ-Ibrlilnvgd-Mbewkl 100 DO Work Phone: 11-07-2021 14:34-0500 Diastolic blood pressure 74 mm[Hg] Moon M Hoy Work Phone: EZ-Pvwcoarene-Jorcdi 100 DO Work Phone: 11-07-2021 14:34-0500 Heart rate 67 /min Moon M Hoy Work Phone: KZ-Aqfnrsrgpu-Ajfwny 100 DO Work Phone: 11-07-2021 14:34-0500 SaO2% (BldA) [Mass fraction] 97 % Moon M Hoy Work Phone: TN-Duhzxcerkh-Zknkvz 100 DO Work Phone: 11-07-2021 14:34-0500 Systolic blood pressure 156 mm[Hg] Moon M Hoy Work Phone: ER-Nahequnnag-Gzjlfy 100 DO Work Phone: 10-31-2021 14:18-0500 Body height 180.34 cm Moon M Hoy Work Phone: AA-Myxozvjwje-Jmfybic e 320 Work Phone: 10-31-2021 14:18-0500 Body mass index (BMI) [Ratio] 30.82 kg/m2 Moon M Hoy Work Phone: UD-Pvzuffrenh-Nobrqmi e 320 Work Phone: 10-31-2021 14:18-0500 Body surface area Derived from formula 2.2 m2 Moon M Hoy Work Phone: ED-Pzpsyynpxj-Vzpxajz e 320 Work Phone: 10-31-2021 14:18-0500 Body weight 100.25 kg Moon M Hoy Work Phone: SC-Jytxrrgqik-Znwofut e 320 Work Phone: 10-31-2021 14:18-0500 Diastolic blood pressure 66 mm[Hg] Moon M Hoy Work Phone: SG-Bmadsuhyju-Xinjiih e 320 Work Phone: 10-31-2021 14:18-0500 Heart rate 62 /min Moon M Hoy Work Phone: FI-Xoisijkkbf-Bzecivv e 320 Work Phone: 10-31-2021 14:18-0500 SaO2% (BldA) [Mass fraction] 98 % Moon M Hoy Work Phone: MM-Hhdcjyhvjy-Ivmjyue e 320 Work Phone: 10-31-2021 14:18-0500 Systolic blood pressure 142 mm[Hg] Moon M Hoy Work Phone: JW-Opvsbzulau-Hxjupgn e 320 Work Phone: 10-28-2021 14:58-0500 Body height 180.34 cm Moon M Hoy Work Phone: RV-Gufmmizslh-YUG [facility] 1500 DO Work Phone: 10-28-2021 14:58-0500 Body mass index (BMI) [Ratio] 30.54 kg/m2 Moon M Hoy Work Phone: DD-Xlrfybwaoa-WTI [facility] 1500 DO Work Phone: 10-28-2021 14:58-0500 Body surface area Derived from formula 2.19 m2 Moon M Hoy Work Phone: KM-Zmckglwcrd-JVD [facility] 1500 DO Work Phone: 10-28-2021 14:58-0500 Body weight 99.34 kg Moon M Hoy Work Phone: WR-Mysdzxpshj-OVJ [facility] 1500 DO Work Phone: 10-28-2021 14:58-0500 Diastolic blood pressure 72 mm[Hg] Moon M Hoy Work Phone: RE-Tesqlfesob-KKB [facility] 1500 DO Work Phone: 10-28-2021 14:58-0500 Heart rate 74 /min Moon M Hoy Work Phone: [facility] 1500 DO Work Phone: 10-28-2021 14:58-0500 Respiratory rate 16 /min Moon M Hoy Work Phone: [facility] 1500 DO Work Phone: 10-28-2021 14:58-0500 Systolic blood pressure 168 mm[Hg] Moon M Hoy Work Phone: [facility] 1500 DO Work Phone: 10-02-2021 11:48-0500 Diastolic blood pressure 80 mm[Hg] Moon M Hoy Work Phone: [facility] 250 DO Work Phone: 10-02-2021 11:48-0500 Systolic blood pressure 154 mm[Hg] Moon M Hoy Work Phone: [facility] 250 DO Work Phone: 10-02-2021 11:47-0500 Body height 180.34 cm Moon M Hoy Work Phone: [facility] 250 DO Work Phone: 10-02-2021 11:47-0500 Body mass index (BMI) [Ratio] 31.1 kg/m2 Moon M Hoy Work Phone: [facility] 250 DO Work Phone: 10-02-2021 11:47-0500 Body surface area Derived from formula 2.21 m2 Moon M Hoy Work Phone: [facility] 250 DO Work Phone: 10-02-2021 11:47-0500 Body weight 101.15 kg Moon M Hoy Work Phone: [facility] 250 DO Work Phone: 10-02-2021 11:47-0500 Diastolic blood pressure 84 mm[Hg] Moon M Hoy Work Phone: [facility] 250 DO Work Phone: 10-02-2021 11:47-0500 Heart rate 60 /min Moon M Hoy Work Phone: [facility] 250 DO Work Phone: 10-02-2021 11:47-0500 Systolic blood pressure 160 mm[Hg] Moon M Hoy Work Phone: [facility] 250 DO Work Phone: 09-22-2021 16:45-0500 Body height 180.34 cm Lenny Armando Other [employer] Other 09-22-2021 16:45-0500 Body mass index (BMI) [Ratio] 31.38 kg/m2 Lenny Armando Other [employer] Other 09-22-2021 16:45-0500 Body weight 102.06 kg Lenny Armando Other [employer] Other 09-22-2021 16:45-0500 Diastolic blood pressure 88 mm[Hg] Lenny Armando Other [employer] Other 09-22-2021 16:45-0500 Respiratory rate 18 /min Lenny Armando Other [employer] Other 09-22-2021 16:45-0500 SaO2% (BldA) [Mass fraction] 99 % Lenny Armando Other [employer] Other 09-22-2021 16:45-0500 Systolic blood pressure 160 mm[Hg] Lenny Armando Other [employer] Other 09-18-2021 10:00-0500 Body height 180.34 cm Lenny Mooneysalas Other [employer] Other 09-18-2021 10:00-0500 Body mass index (BMI) [Ratio] 31.38 kg/m2 Lenny Mooneysalas Other [employer] Other 09-18-2021 10:00-0500 Body weight 102.06 kg Lenny Mooneysalas Other [employer] Other 09-18-2021 10:00-0500 Diastolic blood pressure 82 mm[Hg] Lenny Tr Other [employer] Other 09-18-2021 10:00-0500 Respiratory rate 18 /min Lenny Mooneysalas Other [employer] Other 09-18-2021 10:00-0500 SaO2% (BldA) [Mass fraction] 98 % Lenny Mooneysalas Other [employer] Other 09-18-2021 10:00-0500 Systolic blood pressure 144 mm[Hg] Lenny Tr Other [employer] Other Encounters Encounter Date Encounter Type Care Provider Facility Start: 10-25-2023 End: 10-25-2023 ambulatory Macario Corona Facility:[facility] Start: 09-29-2023 End: 09-29-2023 Subsequent hospital visit by physician Inga Moralez Echo/Vasc Room 2 [facility] Comment on above: Atrial fibrillation, unspecified type (CMS/HCC); Coronary artery disease involving [place] coronary artery of [place] heart without angina pectoris; Benign essential hypertension; Stenosis of carotid artery, unspecified laterality; Carotid atherosclerosis, unspecified laterality; Bilateral carotid bruits Start: 09-29-2023 End: 09-29-2023 ambulatory [facility] Start: 09-23-2023 End: 09-23-2023 ambulatory Macario Corona Facility:[facility] Start: 09-23-2023 End: 09-23-2023 ambulatory MD Moon Harper Work Phone: [facility] Work Phone: Start: 09-23-2023 End: 09-23-2023 Patient encounter procedure MD Moon Harper Work Phone: [facility] Check Start: 08-23-2023 End: 08-23-2023 ambulatory Moon Harper Facility:[facility] Start: 08-23-2023 End: 08-23-2023 ambulatory MD Moon Harper Work Phone: [facility] Work Phone: Start: 08-23-2023 End: 08-23-2023 Patient encounter procedure MD Moon Harper Work Phone: [facility] Check Start: 08-11-2023 End: 08-11-2023 ambulatory [facility] Ambulatory Start: 08-11-2023 End: 08-11-2023 Office outpatient visit 25 minutes [facility] DO Work Phone: [facility] Comment on above: Atrial fibrillation, unspecified type (CMS/HCC); Coronary artery disease involving [place] coronary artery of [place] heart without angina pectoris; Benign essential hypertension; History of [place] (myocardial infarction); Mixed hyperlipidemia; Implantable loop recorder present; Stenosis of carotid artery, unspecified laterality; Carotid atherosclerosis, unspecified laterality; Bilateral carotid bruits Start: 07-22-2023 End: 07-22-2023 ambulatory Macario Corona Facility:[facility] Start: 07-22-2023 End: 07-22-2023 ambulatory MD Moon Harper Work Phone: [facility] Work Phone: Start: 07-22-2023 End: 07-22-2023 Patient encounter procedure MD Moon Harper Work Phone: [facility] Start: 06-22-2023 End: 06-22-2023 ambulatory Macario Corona Facility:[facility] Start: 06-22-2023 End: 06-22-2023 Patient encounter procedure MD Moon Harper Work Phone: [facility] Start: 06-22-2023 End: 06-22-2023 ambulatory MD Moon Harper Work Phone: [facility] Work Phone: Start: 05-20-2023 End: 05-20-2023 ambulatory Macario Corona Facility:[facility] Start: 05-20-2023 End: 05-20-2023 ambulatory MD Moon Harper Work Phone: [facility] Work Phone: Start: 05-20-2023 End: 05-20-2023 Patient encounter procedure MD Moon Harper Work Phone: [facility] Check Start: 05-20-[address] Moon Harper Facility:[id number] Start: 05-12-2023 Rx Renewal Moon Harper Work Phone: [facility] 250 DO Work Phone: Start: 04-21-2023 Rx Renewal Moon Harper Work Phone: [facility] 250 DO Work Phone: Start: 04-19-2023 End: 04-19-2023 ambulatory Macario Corona Facility:[facility] Start: 04-19-2023 End: 04-19-2023 ambulatory MD Moon Harper Work Phone: [facility] Work Phone: Start: 04-19-2023 End: 04-19-2023 Patient encounter procedure MD Moon Harper Work Phone: [facility] Check Start: 04-19-[address] Moon Harper Facility:[id number] Start: 02-17-2023 End: 02-18-[address] MOON HARPER . Facility:H1 Start: 02-15-2023 End: 02-15-2023 ambulatory Macario Corona Facility:[facility] Start: 02-15-2023 End: 02-15-2023 ambulatory MD Moon Harper Work Phone: [facility] Work Phone: Start: 02-15-2023 End: 02-15-2023 Patient encounter procedure MD Moon Harper Work Phone: [facility] Check Start: 02-15-[address] Moon Harper Facility:[id number] Start: 01-14-2023 End: 01-14-[address] Moon Harper Facility:[id number] Start: 01-14-2023 End: 01-14-2023 ambulatory MD Moon Harper Work Phone: [facility] Work Phone: Start: 01-14-2023 End: 01-14-2023 Patient encounter procedure MD Moon Harper Work Phone: [facility] Check Start: 01-04-2023 End: 01-04-[address] MOON HARPER . Facility:H1 Start: 12-15-[address] Moon Harper Facility:[id number] Start: 12-14-2022 End: 12-14-2022 ambulatory Macario Corona Facility:[facility] Start: 12-14-2022 End: 12-14-2022 ambulatory MD Moon Harper Work Phone: [facility] Work Phone: Start: 12-14-2022 End: 12-14-2022 Patient encounter procedure MD Moon Harper Work Phone: [facility] Check Start: 12-09-2022 Office outpatient vi sit 25 minutes Moon Harper Work Phone: [facility] 250 DO Work Phone: Start: 12-09-2022 ambulatory Gisele Schilling Facility:1 [id number] Start: 11-14-[address] Moon Harper Facility:[id number] Start: 11-13-2022 End: 11-13-2022 Patient encounter procedure MD Moon Harper Work Phone: [facility] Check Start: 10-08-[address] Moon Harper Facility:[id number] Start: 08-14-[address] Moon Harper Facility:[id number] Start: 08-05-2022 Patient encounter procedure Moon Harper Work Phone: [facility] 250 DO Work Phone: Start: 08-04-2022 End: 08-05-[address] MOON HARPER . Facility:H1 Start: 08-03-2022 Office outpatient vi sit 15 minutes Moon Parrishdante Work Phone: [facility] 250 DO Work Phone: Start: 08-03-2022 Patient encounter procedure Moon Harper Work Phone: [facility] 250 DO Work Phone: Start: 08-03-2022 ambulatory Gisele Schilling Facility:1 [id number] Start: 07-27-2022 End: 07-27-[address] MOON HARPER . Facility:H1 Start: 07-06-2022 ambulatory Gisele Schilling Facility:1 [id number] Start: 07-01-2022 End: 07-01-[address] MOON HARPER . Facility:H1 Start: 05-27-2022 End: 05-30-[address] MOON HARPER . Facility:H1 Start: 05-21-2022 Transitional care manage srvc 14 day discharge Moon Harper Work Phone: [facility] 250 DO Work Phone: Start: 05-18-2022 End: 10-06-[address] MOON HARPER . Facility:H1 Start: 05-07-2022 End: 05-08-2022 Evaluation and management of inpatient MD Moon Harper Work Phone: [facility] Start: 04-10-2022 End: 04-12-2022 Evaluation and management of inpatient MD Moon Harper Work Phone: [facility] Start: 04-10-2022 End: 04-11-2022 ambulatory MACY STUBBS Facility:H1 Start: 04-03-2022 End: 04-03-2022 ambulatory Ada Barnes Other [facility] [employer] Other Start: 04-03-2022 Office outpatient vi sit 15 minutes Ada Barnes [facility] Start: 04-01-2022 End: 04-01-[address] MOON HARPER . Facility:H1 Start: 02-20-2022 Office outpatient vi sit 15 minutes Moon Harper Work Phone: RO-Omykwaeaos-Sudigj 100 DO Work Phone: Start: 02-10-2022 Patient encounter procedure Moon Harper Work Phone: FC-Lxhsmgjujq-Cmhhw Work Phone: Start: 02-05-2022 End: 02-05-2022 Pain Management Bayron Rodriguez [facility] Start: 01-09-2022 [place], Provider[place] [facility] [place] [facility] [facility] 4,[id number], Status: Pen, Time: 8:00 AM Moon Harper Work Phone: IP-Reapuqhmtj-Chsdgbii [facility] 2300 Work Phone: Start: 01-01-2022 AUDIT Moon Harper Work Phone: QJ-Guwhqhatgu-Zbbqqqve [facility]00 Work Phone: Start: 12-24-2021 AUDIT Moon M Hoy Work Phone: OB-Cqpkxymkzc-Xyjgcusd [facility] 2300 Work Phone: Start: 12-19-2021 Office outpatient vi sit 25 minutes Moon M Hoy Work Phone: BR-Tmvfgxxsxr-Rqisba 100 DO Work Phone: Start: 11-10-2021 AUDIT Moon M Hoy Work Phone: EH-Ryownnvvee-Fdroycg 350 [place] Work Phone: Start: 11-07-2021 Office outpatient vi sit 25 minutes Moon M Hoy Work Phone: GE-Vgkobtdbrz-Rlzoph 100 DO Work Phone: Start: 10-31-2021 Office outpatient ne w 60 minutes Moon M Hoy Work Phone: IN-Sllmdkefsy-Vishwddr 320 Work Phone: Start: 10-28-2021 Office outpatient ne w 60 minutes Moon M Hoy Work Phone: ED-Mhyjqgdxtg-YZR [facility] 1500 DO Work Phone: Start: 10-28-2021 Patient encounter procedure Moon M Hoy Work Phone: RA-Bbzuywdfad-KPR [facility] 1500 DO Work Phone: Start: 10-02-2021 Office consultation new/estab patient 80 min Moon M Hoy Work Phone: [facility] 250 DO Work Phone: Start: 10-02-2021 Office outpatient ne w 60 minutes Moon M Hoy Work Phone: [facility] Work Phone: Start: 09-22-2021 End: 09-22-2021 ambulatory Lenny Armando Other [employer] Other Start: 09-22-2021 Office outpatient vi sit 15 minutes Lenny Armando [facility] Vascular Surgery Start: 09-18-2021 End: 09-18-2021 ambulatory Lenny Mooneysalas Other [facility] [employer] Other Start: 09-18-2021 Office outpatient vi sit 25 minutes Lenny Armando [facility] Vascular Surgery Patient encounter status Moon Harper Work Phone: XS-Eivsoiepit-Ovqrxbfx [facility]00 Work Phone: Procedures Date Procedure Procedure Detail Performing Clinician Start: 09-29-2023 VASC US CAROTID JOE RY DUPLEX BILATERAL MACARIO SWANSON Start: 05-07-2022 Plain chest X-ray MD Monreal Work Phone: Start: 04-11-2022 Plain chest X-ray MD Monreal Work Phone: Start: 01-07-2022 Epidural injection o f lumbar spine using fluoroscopic guidance [employer] Comment on above: L5-S1 70% Relief Start: 08-20-2021 Epidural injection o f lumbar spine using fluoroscopic guidance [facility] Comment on above: L4-5 90% Relief for 6 weeks Start: 09-11-2020 Epidural injection o f lumbar spine using fluoroscopic guidance [facility] Comment on above: L4-5 MART- 80% relief Start: 11-01-2019 Epidural injection o f lumbar spine using fluoroscopic guidance [facility] Comment on above: L4-5 MART- 97% relief for 10 days, now 75% relief Start: 10-18-2011 right large toenail removal [facility] Start: 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 [facility] 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[facility] Start: 10-18-1996 heel spur Bayron Mercado Start: [...] Harper Work Phone: SARS Antigen (LFIA) MD Nithya robison Francoisdante Work Phone: Total colonoscopy Moon Harper Work Phone: Plan of Treatment Date Care Activity Detail Author Start: 08-10-2024 End: 08-10-2024 Patient encounter procedure 08/10/2024 11:20 AM EDT Office Visit [address] [place] [id number] Macario Swanson DO [address] [facility] [address] [place] [address] [facility] Start: 09-29-2023 End: 09-29-2023 Patient encounter procedure 09/29/2023 10:45 AM EST Appointment [id number] [place] [id number] [facility] Start: 08-11-2023 End: 08-11-2025 US.doppler Carotid arteries - bilateral Vascular US Carotid Artery Duplex Bilateral Vascular Ultrasound Routine Atrial fibrillation, unspecified type (CMS/HCC) Coronary artery disease involving [place] coronary artery of [place] heart without angina pectoris Benign essential hypertension Stenosis of carotid artery, unspecified laterality Carotid atherosclerosis, unspecified laterality Bilateral carotid bruits Expected: 08/11/2023 (Approximate), Expires: 08/11/2025 [facility] Service Area Work Phone: Comment on above: Expected: 08/11/2023 (Approximate), Expires: 08/11/2025 Start: 08-11-2023 FUV, Provider: Macario Swanson, Status: Pen, Time: 11:20 AM FUV, Provider: Macario Swanson, Status: Pen, Time: 11:20 AM -[facility] 250 DO Work Phone: Start: 12-03-2022 FUV, Provider: Macario Swanson, Status: Pen, Time: 10:20 AM FUV, Provider: Macario Swanson, Status: Pen, Time: 10:20 AM -[facility] 250 DO Work Phone: Start: 10-30-2022 FUV, Provider: Addy Alas, Status: Pen, Time: 2:30 PM FUV, Provider: Addy Alas, Status: Pen, Time: 2:30 PM EK-Chrwhmpgdi-Kniyjjy e 320 Work Phone: Start: 08-21-2022 FUV, Provider: Addy Alas, Status: Pen, Time: 2:15 PM FUV, Provider: Addy Alas, Status: Pen, Time: 2:15 PM ZS-Hnvbhiuiec-Wfwper 100 DO Work Phone: Start: 07-06-2022 FUV, Provider: Gisele Bill, Status: Pen, Time: 10:00 AM FUV, Provider: Gisele Bill, Status: Pen, Time: 10:00 AM -[facility] 250 DO Work Phone: Start: 05-08-2022 [facility] Work Phone: Start: 05-07-2022 Referral to crystal mounter [facility] Work Phone: Start: 05-07-2022 Hospital admission [facility] Work Phone: Start: 05-07-2022 [facility] Work Phone: Start: 05-07-2022 [facility] Work Phone: Start: 04-12-2022 [facility] Work Phone: Start: 04-11-2022 [facility] Work Phone: Start: 04-11-2022 Hospital admission [facility] Work Phone: Start: 04-11-2022 [facility] Work Phone: Start: 04-11-2022 Hospital admission [facility] Work Phone: Start: 04-11-2022 Referral to crystal mounter [facility] Work Phone: Start: 04-10-2022 Sleep disorder assessment [facility] Work Phone: Start: 04-10-2022 Dilation of Coronary Artery, One Artery with Three Drug-eluting Intraluminal Devices, Percutaneous Approach Dilation of Coronary Artery, One Artery with Three Drug-eluting Intraluminal Devices, Percutaneous Approach [facility] Start: 04-10-2022 Fluoroscopy of Left Heart using Low Osmolar Contrast Fluoroscopy of Left Heart using Low Osmolar Contrast [facility] Start: 04-10-2022 Fluoroscopy of Multi ple Coronary Arteries using Low Osmolar Contrast Fluoroscopy of Multiple Coronary Arteries using Low Osmolar Contrast [facility] Start: 04-10-2022 Measurement of Cardi ac Sampling and Pressure, Left Heart, Percutaneous Approach Measurement of Cardiac Sampling and Pressure, Left Heart, Percutaneous Approach [facility] Start: 04-10-2022 Baptism of Cardi ac Rhythm, Single Baptism of Cardiac Rhythm, Single [facility] Start: 02-20-2022 FUVHOSP, Provider: Addy Alas, Status: Pen, Time: 2:45 PM FUVHOSP, Provider: Addy Alas, Status: Pen, Time: 2:45 PM IR-Liniirtfzh-Yrpqk Work Phone: Start: 01-29-2022 FUV, Provider: Macario Swanson, Status: Pen, Time: 11:20 AM FUV, Provider: Macario Swanson, Status: Pen, Time: 11:20 AM PJ-Ewshkqeswf-Tolkhqw e 320 Work Phone: Start: 01-09-2022 [place], Provider[place] [facility] [place] [employer] [employer] 4,[id number], Status: Pen, Time: 8:00 AM [place], Provider: [facility] [place] [employer] 4,[id number], Status: Pen, Time: 8:00 AM CP-Tzbhjzxxpr-Diomgay e [facility] Work Phone: Start: 12-19-2021 FUV, Provider: Addy Alas, Status: Pen, Time: 3:00 PM FUV, Provider: Addy Alas, Status: Pen, Time: 3:00 PM WG-Wspvskvfde-Vfmnfs 100 DO Work Phone: Start: 07-08-2021 DTaP/Tdap/Td Vaccine s (1 - Tdap) DTaP/Tdap/Td Vaccines (1 - Tdap) [facility] Start: 02-11-2021 COVID-19 Vaccine (3 - Moderna series) COVID-19 Vaccine (3 - Moderna series) [facility] Start: 12-19-2007 Zoster Vaccines (2 o f 3) Zoster Vaccines (2 of 3) [facility] Start: 1955 Diabetes mellitus screening Diabetes Screening [facility] Start: 1937 Lipid panel Lipid Panel [facility] Start: 1937 Medicare Annual Wellness Visit Medicare Annual Wellness Visit (AWV) [facility] Patient referral [facility] Work Phone: SARS-CoV-2 (COVID-19 ) N gene [Presence] in Respiratory specimen by MERLYN with probe detection [facility] Work Phone: Troponin I.cardiac [Mass/volume] in Serum or Plasma by High sensitivity method [facility] Work Phone: End: 09-29-2023 US.doppler Carotid arteries - bilateral [facility] Service Area Work Phone: Comment on above: Once for 1 Occurrenc es starting 09/29/2023 until 09/29/2023 Immunizations Immunization Date Immunization Notes Care Provider Afshan maynard 07-22-2022 influenza virus vacc ine, unspecified formulation Macario Sky DO Work Phone: [facility] Work Phone: 07-10-2021 Seasonal trivalent influenza vaccine, adjuvanted, preservative free Moon M Hoy Work Phone: [facility] 250 DO Work Phone: 07-07-2021 tetanus and diphther ia toxoids, adsorbed, preservative free, for adult use (5 Lf of tetanus toxoid and 2 Lf of diphtheria toxoid) Moon M Hoy Work Phone: [facility] [employer] 250 DO Work Phone: 12-17-2020 Moderna COVID-19 Vac cine 100 MCG/0.5ML Intramuscular Suspension Moon M Hoy Work Phone: [facility] [employer] 250 DO Work Phone: 11-19-2020 Moderna COVID-19 Vac cine 100 MCG/0.5ML Intramuscular Suspension Moon M Hoy Work Phone: [facility] [employer] 250 DO Work Phone: 08-06-2020 influenza, high dose seasonal, preservative-free Moon M Hoy Work Phone: [facility] 250 DO Work Phone: 06-29-2019 influenza virus vacc ine, live, attenuated, for intranasal use Bayron Rodriguez [facility] 06-29-2019 Seasonal trivalent influenza vaccine, adjuvanted, preservative free Moon M Hoy Work Phone: [facility] 250 DO Work Phone: 07-18-2018 Seasonal trivalent influenza vaccine, adjuvanted, preservative free Moon M Hoy [facility] DO Work Phone: 07-21-2017 influenza, injectabl e, quadrivalent, preservative free Moon M Hoy Work Phone: [facility] 250 DO Work Phone: 11-17-2016 influenza, injectabl e, quadrivalent, preservative free Moon M Hoy Work Phone: [facility] 250 DO Work Phone: 11-17-2016 pneumococcal conjuga te vaccine, 13 valent Moon M Hoy Work Phone: [facility] 250 DO Work Phone: 07-20-2016 influenza, high dose seasonal, preservative-free Moon M Hoy [facility] Phone: [facility] 250 DO Work Phone: 07-21-2015 influenza, high dose seasonal, preservative-free Moon M Hoy Work Phone: [facility] 250 DO Work Phone: 07-18-2015 pneumococcal polysaccharide vaccine, 23 valent Moon M Hoy Work Phone: [facility] 250 DO Work Phone: 10-24-2007 zoster vaccine, live Moon M Hoy Work Phone: [facility] 250 DO Work Phone: Payers Date Payer Category Payer Unknown 2022 Self-pay [id number] 2002 Medicare MEDICARE MEDICAR E PART A AND B [id number] 2002-Present [address] [place] [address] [id number] 1959 Medicare [id number] 2.16.840.1.671554.19 1959 Unknown [id number] 1937 Unknown [id number] 2.16.840.1.460531.3.579.2.593 1937 Unknown [id number] 2.16.840.1.493174.3.579.2.593 1937 Unknown [id number] 2.16.840.1.340045.3.579.2.593 1937 Unknown [id number] 2.840.1.199165.3.579.2.593 1937 Unknown [id number] 2.16.840.1.328154.3.579.2.593 1937 Unknown [id number] 2.16.840.1.218090.3.579.2.593 1937 Unknown [id number] 2.16.840.1.612628.3.579.2.593 1937 Unknown [id number] 2.840.1.427661.3.579.2.593 1937 Unknown [id number] 2.16.840.1.731143.3.579.2.593 1937 Unknown [id number] 2.16.840.1.131376.3.579.2.356 1937 Unknown [id number] 2.16.840.1.047060.3.579.2.356 1937 Unknown [id number] 2.16.840.1.019957.3.579.2.356 1937 Unknown [id number] 2.16.840.1.137843.3.579.2.356 1937 Unknown [id number] 2.840.1.297632.3.579.2.356 1937 Unknown [id number] 2.840.1.504902.3.579.2.356 1937 Unknown [id number] 2.840.1.516603.3.579.2.356 1937 Unknown [id number] 2.840.1.678814.3.579.2.356 1937 Unknown [id number] 2.840.1.180984.3.579.2.356 1937 Unknown [id number] 2.840.1.781109.3.579.2.356 1937 Unknown [id number] 2.840.1.869658.3.579.2.356 1937 Unknown [id number] 2.840.1.539529.3.579.2.356 1937 Unknown [id number] 2.840.1.875618.3.579.2.1244 1937 Unknown [id number] 2.840.1.306454.3.579.2.1246 Unknown [id number] 2.840.1.177474.19 Unknown [id number] 2.840.1.802833.3.579.2.531 Unknown [id number] 2.840.1.573014.3.579.2.531 Unknown [id number] 2.840.1.283166.3.579.2.531 Unknown [id number] 2.840.1.654532.3.579.2.531 Unknown [id number] 2.840.1.341810.3.579.2.531 Unknown [id number] 2.16.840.1.743658.3.579.2.531 Unknown [id number] 2.16.840.1.602125.3.579.2.531 Unknown [id number] 2.16.840.1.342996.3.579.2.531 Unknown [id number] 2.16.840.1.331684.3.579.2.531 Unknown [id number] 2.16.840.1.126827.3.579.2.531 Social History Date Type Detail Facility Start: 08-11-2023 No alcohol use No alcohol use -[facility] 250 DO Work Phone: Comment on above: coffee daily; Quit smoking 20 year s ago; Start: 02-05-2020 End: 08-11-2023 Tobacco smoking status Ex-smoker (finding) [facility] Comment on above: Quit smoking in 1983 Tobacco smoking status Never [facility] Comment on above: Quit smoking in 1983 Start: 08-11-2023 Sex Assigned At Male N Prisync Other Start: 1935 Sex Assigned At Male F [facility] End: 10-18-1984 History of tobacco use Current smoker [facility] Work Phone: End: 10-18-1984 History of tobacco use Pipe Smoker [facility] Work Phone: Start: 08-11-2023 Tobacco use and exposure Smokeless tobacco non-user [facility] Work Phone: Start: 08-11-2023 Alcohol intake Lifetime non-d pinky (finding) [facility] Work Phone: Start: 08-11-2023 Alcohol Comment past alooholic [facility] Work Phone: Start: 1935 Sex Assigned At Not on file [facility] Work Phone: Start: 08-01-2023 End: 09-29-2023 Exposure to SARS-CoV-2 (event) Not sure [facility] Medical Equipment Procedure Code Equipment Code Equipment Origin al Text Equipment Identifier Dates Drug-eluting coronary artery stent, btc-ecfguzzxyfosm-dw lymer-coated ()[id number] [id number] FDA Start: 04-11-2022 Drug-eluting coronary artery stent, lbs-zwyookapsjpmh-pj lymer-coated ()[id number] [id number] FDA Start: 04-11-2022 Goals Date Patient Goal Desired Activity /State Functional Status Date Assessment Result Facility 05-08-2022 Functional status Patient at Baseline [facility] Work Phone: 05-07-2022 Functional status Patient at Baseline [facility] Work Phone: 04-12-2022 Functional status Patient at Baseline [facility] Work Phone: Mental Status Date Assessment Result Facility 05-08-2022 Cognitive function Cognitive Sta tus Patient at Baseline [facility] Work Phone: 05-07-2022 Cognitive function Cognitive Sta tus Patient at Baseline [facility] Work Phone: 04-12-2022 Cognitive function Cognitive Sta tus Patient at Baseline [facility] Work Phone: Clinical Notes 05-03-2019 to [...] discontinued (had transient A-fib during his inferior TN April 2022) We reviewed all his medications, [...] type (CMS/HCC) 2. Coronary artery disease involving [place] coronary artery of [place] heart without angina pectoris 3. Benign essential hypertension 4. History of TN (myocardial infarction) 5. Mixed hyperlipidemia 6. Implantable loop recorder present 7. Stenosis of carotid artery, unspecified laterality 8. Carotid atherosclerosis, unspecified laterality documented in this encounter [facility] Work Phone: 08-11-2023 Instructions Morenita Mcneil CMA [...] of your visit. documented in this encounter [facility] Work Phone: 08-04-2022 Note CONSULTATION CONSULTATION DATE: [...] 100 mg b.i.d., we will maintain. [facility] 05-08-2022 Consult note Note Date/Time May 08, 2022 11:45am [facility] [address] [place] [address] Cardiology Consult Note Signed Patient: Macario Ash MR#: [id number] : 1935 Acct:[id number] Age/Sex: 87 / M Adm Date: 2 Loc: 3T Room: [address] [place] [address] Type : ADM INOo Attending Dr: Lidia [...] episodes. He does follow with electrophysiology at [facility] and had a loop recorder placed so [...] x10E3/uL Lymph # (Auto) 1.6 (1.00-4.8) x10E3/uL [place] # (Auto) 0.6 (0.0-0.8) x10E3/uL Eos # [...] Code(s): I25.10 - Atherosclerotic heart disease of [place] coronary artery without angina pectoris (6) Recent inferior myocardial infarction: Documented By: Rowena Swanson DO 05/08/22 1134 Signed By: <Electronically signed by Rowena Swanson DO> 05/08/22 1145 [facility] Work Phone: 1(908) 363-470307-21-2022 History and physical note Author Lidia Borja [facility] May 07, 2022 2:49pm Note Date/Time May 07, 2022 2:43 pm [facility] [address] [place] [address] Hospitalist H&P Signed Patient: Macario Ash MR#: [id number] : 1935 Acct:[id number] Age/Sex: 87 / M Adm Date: 2 Loc: 3T Room: [address] [place] [address] Type : ADM IN Attending Dr: Lidia Borja MD Copies to: MD Lidia Roberto MD~ HPI DATE OF EXAMINATION: 05/07/22 CHIEF COMPLAINT: Shortness of breath and generalized weakness. HISTORY OF PRESENT ILLNESS: Patient is a pleasant 87-year-old male with past medical history of hypertension, peptic ulcer with recent hospitalization for acute inferior ST elevated TN on 04/11/2022 for which he underwent cardiac [...] similar feeling he had on his previous TN which made him come to the emergency [...] negative unless noted below or in HPI [facility] Vacc[facility] for COVID-19?: Yes Medical History [...] % (Auto) 23.2 % (.) 05/07/22 11:24 [place] % (Auto) 8.6 % (.) 05/07/22 11:24 Eos % (Auto) 1.3 % (.) 05/07/22 11:24 Baso % (Auto) 1.5 % (.) 05/07/22 11:24 Neut # (Auto) 4.6 x10E3/uL (1.8-7.7) 05/07/22 11:24 Lymph # (Auto) 1.6 x10E3/uL (1.00-4.8) 05/07/22 11:24 [place] # (Auto) 0.6 x10E3/uL (0.0-0.8) 05/07/22 11:24 [...] <Electronically signed by Lidia Borja MD> 05/07/22 2789 [facility] Work Phone: 1(985) 734-226306-17-2022 Evaluation note* Encounter Date Diagnosis Assessment Notes [...] Other [facility] home care material was printed [employer] [facility] Other 04-22-2022 NoteHOSPITAL REGULATIONS: All Positive and [...] basis. Bayron Rodriguez M.D. lr Dictated: 02/05/2022 [id number] Transcribed: 02/06/2022 cc:Moon Harper M.D.[facility] HospitalComment on above:Result Comment: Electronically Signed By: Jennifer GAUTAM, Bayron\.br\Date and Time Signed: 02/06/22 15:57 [id number] History of Present illness Narrative* 86-year-old male with history of hypertension, atherosclerosis with recent episode of syncope beingreferred from primary care physician and vascular/public weigher for further evaluation management of syncope and [...] his initial evaluation appropriately with a 7-day recruitment specialist and an echocardiogram. Patient also underwent a [...] were discontinued however statin has been kept. [facility]Mmuscv[facility]jk[facility]Fr[facility] 100 DO Work Phone: 1(120) 847-489503-25-2022 NotePre-procedure Verification and Time Out: Pre-Procedure Verification and Time Out: Procedure Locationprocedure area [place] - Pre-procedure Verificationcompleted TIME OUT - Final Verificationcompleted immediately prior to procedure start DEBRIEFcompleted General Information: Anesthesia Critical Care: Non-Anesthesia Date/Time of Procedure: 09-Jan-2022 10:00 Post-Procedure Diagnosis: s/p ILR Implant Procedure Name: Implantable loop recorder implantation Findings: grossly normal anatomy Procedure performed by: [facility] [employer] Make Up Operator(s): none Estimated Blood Loss (mL): none Specimen: [...] paired to home use. Serial #: [id number] R wave: 0.37 mV P wave: Present Summary: - s/p ILR Implantation Patient Instructions: - No showering for 24hrs - Remove Bandage in 48 hours - Avoid submerging in water, swimming bath tubs etc for 2-3 days - Allow steristrips underneath to fall off naturally. - Please call our office ([phone]) if you notice any discharge or swelling around incision or fever. Tolerance: good Complications: None Electronic Signatures: Addy Alas) (Signed 09-Jan-2022 11:39) Authored: Pre-procedure Verification and Time Out, General Information, Procedure Details, Note Completion Last Updated: 09-Jan-2022 11:39 by Addy Alas)[facility] 01-09-2022 NotePre-procedure Verification and Time Out: Pre-Procedure Verification and Time Out: Procedure [facility]procedure [facility] Pre-procedure Verificationcompleted TIME OUT - Final Verificationcompleted immediately prior to procedure start DEBRIEFcompleted General Information: Anesthesia Critical Care: Non-Anesthesia Date/Time of Procedure: 09-Jan-2022 08:00 Post-Procedure Diagnosis: Sinus rhythm, history of syncope Procedure Name: Electrophysiological study, 3D Mapping, Arrythmia Induction attempted with isoproterenol, LA recording and pacing Findings: grossly normal anatomy Procedure performed by: wv Terminal Make Up Operator(s): none Estimated Blood Loss (mL): none Specimen: [...] 90ms HV 61ms QRS 67ms QT 397ms WY 200ms RR 802ms Atrial activation was noted [...] Completion Last Updated: 09-Jan-2022 11:33 by Addy Alas)[facility] 01-09-2022 NoteHistory & Physical Reviewed: I have [...] Completion Last Updated: 09-Jan-2022 08:16 by Addy Alas)[facility] 01-07-2022 [id number]:127[facility]03-11-2022 NoteHOSPITAL REGULATIONS: All Positive and Important Negative Findings Shall Be Recorded Date of Consultation: 12/25/2021 Attending Physician: Moon Hraper M.D. Consulting Physician: Bayron Rodriguez M.D. CHIEF [...] repeat evaluation. Bayron Rodriguez M.D. Dictated: 12/25/2021 [id number] Transcribed: 12/26/2021 cc:Moon Harper M.D.[facility] HospitalComment on above:Result Comment: Electronically Signed By: Jennifer GAUTAM, Bayron\.br\Date and Time Signed: 12/26/21 16:18 [id number] History of Present illness Narrative* 86-year-old male with history of hypertension, atherosclerosis with recent episode of syncope beingreferred from primary care physician and vascular/public weigher for further evaluation management of syncope and [...] his initial evaluation appropriately with a 7-day recruitment specialist and an echocardiogram. Patient also underwent a [...] were discontinued however statin has been kept. JK-Rqnycbhwaw-Dgtxed 100 DO Work Phone: 1(793) 140-758712-28-2021 History of Present illness Narrative* 86-year-old male with history of hypertension, atherosclerosis with recent episode of syncope beingreferred from primary care physician and vascular/public weigher for further evaluation management of syncope and [...] his initial evaluation appropriately with a 7-day recruitment specialist and an echocardiogram. Patient also underwent a [...] were discontinued however statin has been kept. [facility] Work Phone: 1(447) 306-337912-24-2021 History of Present illness Narrative* 86-year-old male with history of hypertension, atherosclerosis with recent episode of syncope beingreferred from primary care physician and vascular/public weigher for further evaluation management of syncope and [...] his initial evaluation appropriately with a 7-day recruitment specialist and an echocardiogram. Patient also underwent a [...] were discontinued however statin has been kept. ZA[facility]Cgok[facility]il[facility]Fywlfc[facility] 320 Work Phone: 1(281) 123-143412-24-2021 History of Present illness Narrative* 86 yo WM with PMH of HTN, very active lal, who looks younger than stated age, is presenting today with his daughter, as s referral by his crystal mounter Dr Swanson, for evaluation for carotid arterydisease. [...] bilat carotid stenosis. * Echocardiogram- EF 55-60% LQ-Ebwzyhuowu-LIZ [facility] Work Phone: 1(608) 188-465612-15-2021 History of Present illness Narrative* 86 yo WM with PMH of HTN, very active lal, who looks younger than stated age, is presenting today with his daughter, as s referral by his crystal mounter Dr Swanson, for evaluation for carotid arterydisease. [...] bilat carotid stenosis. * Echocardiogram- EF 55-60% [facility] Work Phone: 1([phone]) 159-691012-13-2021 History of Present illness Narrative* 86 yo WM with PMH of HTN, very active lal, who looks younger than stated age, is presenting today with his daughter, as s referral by his crystal mounter Dr Swanson, for evaluation for carotid arterydisease. [...] bilat carotid stenosis. * Echocardiogram- EF 55-60% JF-Hstxxknkcv-UKP [facility] 1500 DO Work Phone: 1(625) 612-767412-06-2021 Evaluation note* Encounter Date Diagnosis Assessment Notes [...] continued work-up. This patient should see a crystal mounter and a neurologist for completion of work-up for drop attacks. I will discharge him from my office. [facility] Other 12-02-2021 Evaluation note* Encounter Date Diagnosis [...] meantime the patient should refrain from driving. [facility] Other 11-03-2021 Note [id number]:127[facility] 05-03-2019 History general Narrative - Reported* Type Description Date Medical History Hearing Impaired Medical History Hypertension Medical History Hiatal Hernia Medical History Arthritis Medical History Pernicious Anemia Surgical History Colonoscopy/EGD - Dr. Albert 05/03/2019 Surgical History Vasectomy Hospitalization History Bleeding Ulcer [facility] Other Chief complaint Narrative - Reported* MACARIO [...] mg daily, proceed with neuro/endovascular consultation at [facility] for consideration of possible basilar artery (doubt carotid internal artery) revascularization versus continued medical therapy. I would recommend allowing mean arterial blood pressure/systolic pressure to run higher in order for better cerebral perfusion. We will follow-up in the next 3 months [facility] 250 DO Work Phone: Chief complaint Narrative - Reported* MACARIO ASH is being seen for a cardiovascular evaluation. * MACARIO ASH is being seen for carotid stenosis. [facility] 1500 DO Work Phone: chief complaint Narrative - ReportedMACARIO ASH is being seen for a consultation for dizziness and Near syncope. [facility] 320 Work Phone: chiab complaint Narrative - Reported* MACARIO ASH is being seen for a cardiovascular evaluation. * MACARIO ASH is being seen for carotid stenosis. [facility] Work Phone: Chinx complaint Narrative - Reported* MACARIO ASH is being seen for a cardiovascular evaluation. * MACARIO ASH is being seen for carotid stenosis. [facility] 1500 DO Work Phone: chigl complaint Narrative - Reported* Patient is an 87-year-old active lal who returns following recent inferior ST elevation TN for transitional care management visit. He underwent [...] well, c ontinue with clopidogrel and Eliquis. -[facility] 250 DO Work Phone: Discharge summary Author Lidia Borja [facility] May 08, 2022 2:18pm Note Date/Time May 08, 2022 2:18 pm [facility] [address] [place], [place] [id number] Discharge Summary Signed Patient: Macario Ash MR#: [id number] : 1935 Acct:[id number] Age/Sex: 87 / M Adm Date: 2 Loc: Room: [address] [place] [address]: Lidia Borja MD Copies to: [...] signed by Lidia Borja MD> 05/08/22 1418 [facility] Work Phone: Evaluation + Plan note No data available for this section [facility] Diagnosis Onset Date Resolution Status Essential hypertension acute Hyperlipidemia acute 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 acute Chest pain acute Hyperlipidemia acute Hypertension acute Shortness of breath acute Stented coronary artery acut e [facility] Work Phone: Evaluation note* Diagnosis Onset Date Resolution Status Essential hypertension acute Hyperlipidemia acute 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 acute ASHD (arteriosclerotic heart disease) acute Chest pain acute Hyperlipidemia acute Hypertension acute Recent inferior myocardial infarction acute Shortness of breath acute Stented coronary artery acut e Syncope acute [facility] Work Phone: Evaluation noteNo assessment information available [facility] Work Phone: Evaluation note* Diagnosis Atrial fibrillation, unspecified type (CMS/HCC) Coronary artery disease involving [place] coronary artery of [place] heart without angina pectoris Benign essential hypertension Essential hypertension, benign History of TN (myocardial infarction) 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 Implantable loop recorder present Stenosis of carotid artery, unspecified laterality Carotid atherosclerosis, unspecified laterality Bilateral carotid bruits documented in this encounter [facility] Work Phone: Evaluation note* Diagnosis Atrial fibrillation, unspecified type (CMS/HCC) Coronary artery disease involving [place] coronary artery of [place] heart without angina pectoris Benign essential hypertension Essential hypertension, benign Stenosis of carotid artery, unspecified laterality Carotid atherosclerosis, unspecified laterality Bilateral carotid bruits documented in this encounter [facility] Work Phone: History and physical note Author Lidia Borja [facility] May 07, 2022 2:49pm Note Date/Time May 07, 2022 2:43 pm [facility] [address] [place] [address] Hospitalist H&P Signed Patient: Macario Ash MR#: [id number] : 1935 Acct:[id number] Age/Sex: 87 / M Adm Date: 2 Loc: Room: [address] [place] [address] Type : ADM IN Attending Dr: Lidia Borja MD Copies to: MD Lidia Roberto MD~ HPI DATE OF EXAMINATION: 05/07/22 CHIEF COMPLAINT: Shortness of breath and generalized weakness. HISTORY OF PRESENT ILLNESS: Patient is a pleasant 87-year-old male with past medical history of hypertension, peptic ulcer with recent hospitalization for acute inferior ST elevated TN on 04/11/2022 for which he underwent cardiac [...] similar feeling he had on his previous TN which made him come to the emergency [...] % (Auto) 23.2 % (.) 05/07/22 11:24 [place] % (Auto) 8.6 % (.) 05/07/22 11:24 Eos % (Auto) 1.3 % (.) 05/07/22 11:24 Baso % (Auto) 1.5 % (.) 05/07/22 11:24 Neut # (Auto) 4.6 x10E3/uL (1.8-7.7) 05/07/22 11:24 Lymph # (Auto) 1.6 x10E3/uL (1.00-4.8) 05/07/22 11:24 [place] # (Auto) 0.6 x10E3/uL (0.0-0.8) 05/07/22 11:24 [...] signed by Lidia Borja MD> 05/07/22 1449 [facility] Work Phone: History of Present illness Narrative* 86-year-old male with history of hypertension, atherosclerosis with recent episode of syncope beingreferred from primary care physician and vascular/public weigher for further evaluation management of syncope and [...] his initial evaluation appropriately with a 7-day recruitment specialist and an echocardiogram. Patient also underwent a [...] were discontinued however statin has been kept. YR-Bfvwjownux-Tntfeg 100 DO Work Phone: History of Present [...] regularly. Blood pressure control has been good. -[facility] 250 DO Work Phone: History of Present [...] regularly. Blood pressure control has been good. [facility] 250 DO Work Phone: Hospital Discharge instructions No data available for this section [facility] Work Phone: [facility] Work Phone: Reason for referral (narrative)* Consultation (Routine) - Authorized Specialty Diagnoses / Procedures Referred By Paulina melton Referred To Contact Cardiology Diagnoses Atrial fibrillation, unspecified type (CMS/HCC) Coronary artery disease involving [place] coronary artery of [place] heart without angina pectoris Procedures Follow Up In Cardiology Macario Swanson DO [address] [facility] 2, [address] [address] Macario Swanson DO [address] [facility] [address], [address] [address] Referral ID Status Reason Start Date Expiration Date V isits Requested Visits Authorized [id number] Authorized 08/11/2023 08/10/2024 1 1 * Imaging (Routine) - Pending Review Specialty Diagnoses / Procedures Referred By Paulina melton Referred To Contact Cardiology Diagnoses Atrial fibrillation, unspecified type (CMS/HCC) Coronary artery disease involving [place] coronary artery of [place] heart without angina pectoris Benign essential hypertension Stenosis of carotid artery, unspecified laterality Carotid atherosclerosis, unspecified laterality Bilateral carotid bruits Procedures Vascular US Carotid Artery Duplex Bilateral Macario Swanson DO [address] [facility] [address], [address] [address] Referral ID Status Reason Start Date Expiration Date Visits Requested Visits Authorized [id number] Pending Review Perform Procedure 08/10/2024 1 1 T [facility] Work Phone: Family History No Family History [...] was in April 2022. I will need [facility] device clinic to have report sent to [facility]. * He otherwise denies any type of [...] * He has a history of inferior TN in May 2022 with revascularization of the RCA with 2 large and long drug-eluting stents performed by Dr. Fry with preserved LV function. He has underlying hypertension, obesity and paroxysmal atrial fibrillation diagnosed during his TN with successful cardioversion but no further episodes [...] and his daughter malcolm in regards to [id number] score, history of transient atrial fib and [...] unspecified type (CMS/HCC) Coronary artery disease involving [place] coronary artery of [place] heart without angina pectoris Benign essential hypertension Stenosis of carotid artery, unspecified laterality Carotid atherosclerosis, unspecified laterality Bilateral carotid bruits Procedures Vascular US Carotid Artery Duplex Bilateral Macario Swanson DO [address] [facility] [address] [place] [address] Referral ID Status Reason Start Date Expiration Date Visits Requested Visits Authorized [id number] Pending Review Perform Procedure 3 08/10/2024 1 1 Additional Source Comments (unrecognized sect ion and content) No Status Records FoundNo Status Records FoundNo Status Records FoundNo Status Records FoundNo Status Records FoundNo Status Records FoundNo Status Records FoundNo Status Records FoundNo Status Records Found INFORMATION SOURCE (unrecogn ized section and content) DATE CREATED AUTHOR 11/04/2021 [facility] DATE CREATED AUTHOR AUTHOR'S ORGANIZ ATION 01/13/2022 [facility] DATE CREATED AUTHOR AUTHOR'S ORGANIZ ATION 04/09/[address] [facility] DATE CREATED AUTHOR AUTHOR'S ORGANIZ ATION 12/10/2022 [facility] DATE CREATED AUTHOR AUTHOR'S ORGANIZ ATION 02/18/2023 [facility] DATE CREATED AUTHOR AUTHOR'S ORGANIZ ATION 06/29/2023 [facility] DATE CREATED AUTHOR AUTHOR'S ORGANIZ ATION 08/15/2023 [facility] DATE CREATED AUTHOR AUTHOR'S ORGANIZ ATION 11/26/2023 [facility] DATE CREATED AUTHOR AUTHOR'S ORGANIZ ATION 06/26/2024 [facility] REASON FOR VISIT (unrecogniz ed section and content) Reason Comments Follow-up 8 months Specialty Diagnoses / Procedures Referred By Contac t Referred To Contact Cardiology Diagnoses Atrial fibrillation, unspecified type (CMS/HCC) Coronary artery disease involving [place] coronary artery of [place] heart without angina pectoris Benign essential hypertension Stenosis of carotid artery, unspecified laterality Carotid atherosclerosis, unspecified laterality Bilateral carotid bruits Procedures Vascular US Carotid Artery Duplex Bilateral Macario Swanson DO [address] [facility] [address] [place] [address] Referral ID Status Reason Start Date Expiration Date Visits Requested Visits Authorized [id number] Pending Review Perform Procedure 3 08/10/2024 1 [...] Active Macario Corona MD Attending Provider Active Shredder Operator Relationship Specialty Start Date End Date Moon Harper MD [address] [place] [address] PCP - General 10/18/99 Shredder Operator Relationship Specialty Start Date End Date Moon Harper MD [address] [place] [address] PCP - General 10/18/99 Goals (unrecognized section [...] BE BASED ON THE PRIMARY CLINICAL RECORDS. [facility]. provides no warranty or guarantee of the accuracy or completeness of information in this document.
[2024-08-01 09:20] LABS: Estimated Average Glucose 131 mg/dL; Glycohemoglobin A1C 6.2 % (4.5-6.2)
[2024-08-01 11:27] LABS: Alanine Aminotransferase 21 U/L (16-63); Albumin Level 3.4 g/dL (3.4-5.0); Alkaline Phosphatase 86 U/L (46-116); Anion Gap 17.2; Aspartate Amino Transferase 15 U/L (15-37); Bilirubin Total 0.9 mg/dL (0.2-1.0); Calcium 9.1 mg/dL (8.5-10.1); Carbon Dioxide 21.9 mmol/L (21.0-32.0); Chloride 106 mmol/L (98-107); Estimated GFR (African America >60 (>=60 mL/min/1.73m^2); Estimated GFR (Non-African Ame 51 (>=60 mL/min/1.73m^2); Glucose 124 mg/dL (74-106); Potassium 4.1 mmol/L (3.5-5.1); Sodium 141 mmol/L (136-145); Total Protein 6.4 g/dL (6.4-8.2)
[2024-08-01 11:28] LABS: Albumin Globulin Ratio 1.1; Chol HDL Ratio 1.7; Cholesterol 120 mg/dL (<=200); Free T3 2.18 pg/mL (2.18-3.98); HDL Cholesterol 70 mg/dL (40-60); Thyroid Stimulating Hormone 3.735 uIU/mL (0.358-3.740); Triglycerides 65 mg/dL (<=150)
[2024-08-01 11:56] LABS: Prostate Specific Antigen Scrn 0.48 ng/mL (<=4.00)
== END 2024-08-01 08:33 | disposition home or self-care (01) ==
LOC: US 08:32
PROVIDERS: PCP Family Medicine; Visit Provider Family Medicine
DX: R10.11 Right upper quadrant pain (principal); I10 Essential (primary) hypertension; M43.06 Spondylolysis, lumbar region; I48.91 Unspecified atrial fibrillation; I25.10 Atherosclerotic heart disease of native coronary artery without angina pectoris; E78.5 Hyperlipidemia, unspecified; D64.9 Anemia, unspecified; R73.09 Other abnormal glucose; Z79.899 Other long term (current) drug therapy; Z12.5 Encounter for screening for malignant neoplasm of prostate; E03.9 Hypothyroidism, unspecified
CPT/HCPCS: 36415; 76705; 80053; 80061; 83036; 84436; 84443; 84481; 85025; G0103

== ENCOUNTER 2024-10-26 16:57 | Emergency (ER) | payer MEDICARE, SELFPAY ==
--- OUTSIDE RECORDS SUMMARY | 2024-10-26 17:21 | XMS_ITS | CCD ---
Author Organization [facility] Care Team Providers Care Grapple Crew Leader Name Role Phone Moon Harper Unavailable Unavailable Unavailable Moon Harper Primary Care Physician Lenny Armando Unavailable Ada Barnes Unavailable MD Moon Harper Primary Care Provider TYLER Starks Other Provider Unavailable DO Rowena Swanson Other Provider MD Alka Costello Other Provider MD Macario Corona Other Provider MD Sadie Parr Other Provider MD Robert Dav[place] Other Provider RAMAN Bill Other Provider MD Naila Modi Other Provider MD Katelin Solitario Other Provider MD Charity Mg Other Provider MD Shobha Junior Admit Provider MD Patsy Smith Attending Provider MD Christ Ansari Emergency Provider MD Lidia Borja Admit Provider MD Lidia Borja Attending Provider MD Moon Harper Primary Care Provider [phone] MD Macario Corona Attending Provider MD Moon Harper Primary Care Provider [phone] MD Macario Corona Attending Provider MEREDITH ., [...] Attending Unavailable ROGER ., OCTAVIO SAUCEDO Consulting Unavailabl e HOY ., DR MUSTAFA Primary Care [...] Unavailable HOY ., DR MUSTAFA Admsamy Unavailable MD Moon Harper Primary Care Provider [phone] MD Macario Corona Attending Provider MD Moon Harper Primary Care Provider [phone] MD Macario Corona Attending Provider MD Moon Harper Primary Care Provider [phone] MD Macario Corona Attending Provider Meredith, Dr. [...] Unavail able Meredith, Dr. Moon Polo Primary [facility] Unavail able MD Moon Harper Primary Care Provider MD Macario Corona Attending Provider Moon Harper MD Primary Care Provider MACARIO SWANSON Attending Unavailable MOON HARPER Primary Care Unavailable MD Moon Harper Primary Care Provider [phone] MD Macario Corona Attending Provider MD Moon Harper Primary Care Provider [phone] MD Macario Corona Attending Provider Macario Corona [...] Unavail able Macario Corona Attending Unavail able Macario Corona [...] sources) Ciprofloxacin; Translations: [Cipro] Drug Allergy 3 [facility] (20 sources) Penicillins; Translations: [Penicillins] Allergy to drug (finding) 2 Rash, Unknown Reaction [facility] (4 sources) Bee/Wasp/Ant venom Drug allergy hives, Unknown [employer] [facility] [employer] Other (1 source) Isopropyl Alcohol; Translations: [isopropyl alcohol topical] Drug Allergy intolerance [facility] Comment on above: Pt recovering alcoho lic. (5 sources) Penicillin; Translations: [penicillin] Drug Allergy hives, Unknown [employer] Other (3 sources) Alcohol Propensity to adverse reactions Unknown [facility] [employer] Other (13 sources) bee venom protein (honey bee); Translations: [bee venom protein (honey bee)] Allergy to substance 2 Swelling of Lip/Tongue/Thr oat [facility] (4 sources) Penicillins Drug Allergy 3 [facility] Work Phone: (3 sources) Ciprofloxacin; Translations: [CIPROFLOXACIN] Drug Allergy 2 [facility] 3 Repository (1 source) Penicillins Drug allergy (disorder) 2 [facility] Repository (1 source) alcohol Drug allergy (disorder) 2 [facility] Repository Medications Current Medications Medication Drug Class(es) Dates Sig (Normalized) Sig (Original) acetaminophen 500 mg oral tablet (12 sources) Start: 06-06-2019 take 500 mg by mouth three times daily as needed for pain acetaminophen 500 mg, Oral, TID, PRN as needed for pain, Refills(s) 0 Start Date: 06/06/19 Status: Ordered acetaminophen (T ylenol Extra Strength) 500 mg tablet TAKE 1 TABLET EVERY 4 TO 6 HOURS NEEDED. Active amLODIPine Benzoate (1 source) amLODIPine Benzo ate Active apixaban 5 mg oral tablet (15 sources) Factor Xa Inhibitor Start: 2 End: 3 take 1 tablet by mouth twice daily Apixaban (Eliquis) 5 mg Tablet Active 5 MG PO Twice daily 60 May 07, 2022 11:00pm Aspir-81 (3 sources) Aspir-81 Active atorvastatin 40 mg oral tablet (20 sources) HMG-CoA Reductase Inhibitor Start: 4 End: 5 take 1 tablet by mouth once daily at bedtime atorvastatin (Lipitor) 40 mg tablet Indications: Occlusion and stenosis of unspecified carotid artery Take 1 tablet (40 mg) by mouth once daily at bedtime. 90 tablet 3 05/02/2024 05/02/2025 Active Start: 10-02-2021 take 1 tablet by jamir th once daily at bedtime atorvastatin (Lipitor) 40 mg tablet Take 1 tablet (40 mg) by mouth once daily at bedtime. 0 10/02/2021 Active celecoxib 200 mg oral capsule (20 sources) Nonsteroidal Anti-inflammatory Drug Start: 05-03-2019 take 1 capsule by mouth once daily celecoxib (CeleBREX) 200 mg capsule Take 1 capsule (200 mg) by mouth once daily. 01/12/2022 Active Celecoxib 200 MG Oral Capsule [...] 07, 2022 11:00pm Dextromethorphan (1 source) Uncompetitive P-nwtlqw-B-aspartat e Receptor Antagonist, Sigma-1 Agonist Start: 11-01-2019 [...] 0.3 mg/0.3 mL injection syringe USE DIRECTED. Active EpiPen Active furosemide 20 mg oral tablet (20 sources) Loop Diuretic Start: 11-18-2023 take 1 tablet by mouth once daily furosemide (Lasix) 20 mg tablet Indications: Essential (primary) hypertension TAKE 1 TABLET BY MOUTH DAILY 90 tablet 3 11/18/2023 Active Start: 05-04-2022 End: 08-10-2023 take 1 tablet [...] 11:00pm Start: 11-01-2019 take 1 capsule by [facility] once daily Florajen oral capsule 1 cap(s), Oral, Daily Start Date: 11/01/19 Status: Ordered take 1 capsule by [facility] once daily Florajen Acidophilus Oral Capsule TAKE 1 CAPSULE Daily Quantity: 0 Refills: 0 Ordered: 12-May-2022 DO Active lisinopril 40 mg oral tablet (20 sources) Angiotensin Converting Enzyme Inhibitor Start: 05-03-2019 End: 08-11-2023 take 40 mg by mouth once daily Lisinopril Active 40 MG PO Daily May 02, 2019 11:00pm 24 hr metoprolol succinate 25 mg extended release oral tablet (20 sources) beta-Adrenergic Shaun Start: 11-10-2023 End: 11-09-2024 take 0.5 tablet by mouth once daily metoprolol succinate XL (Toprol-XL) 25 mg 24 hr tablet Indications: Benign essential hypertension Take 0.5 tablets (12.5 mg) by mouth once daily. 45 tablet 3 11/10/2023 11/09/2024 Active Start: 11-26-2022 take 0.5 tablet by [facility] once daily Metoprolol Succinate ER 25 MG Oral Tablet Extended Release 24 Hour TAKE 0.5 TABLET Daily Quantity: 45 Refills: 3 Ordered: 27-Nov-2022 Macario Corona MD Start : 26-Nov-2022 Active dose decreased Start: 05-07-2022 take 2 tablets by [facility] once daily Metoprolol Succinate (Toprol Xl) [...] adjusted. Start: 11-07-2021 take 1 tablet by jamir twice daily Metoprolol Tartrate 25 MG Oral Tablet TAKE 1 TABLET TWICE DAILY. Quantity: 60 Refills: 1 Ordered: 20-Feb-2022 Addy Alas MD Start : 07-Nov-2021 Active 11/10/21- dose adjusted. metoprolol succi dhaval XL (Toprol-XL) 25 mg 24 hr tablet 12.5 tablets (312.5 mg) once daily. 0 Active mupirocin 0.02 mg/mg topical ointment (15 sources) [...] Jun, Active nitroglycerin 0.4 mg sublingual tablet (8 sources) Nitrate Vasodilator nitroglyceri n (Nitrostat) 0.[address] 1 tablet (0.4 mg) under the tongue every 5 minutes if needed for chest pain. Active omeprazole 20 mg oral tablet (20 sources) Proton Pump Inhibitor Start: 9 take 20 mg by mouth once daily Prilosec 20 mg, Oral, Daily, Refills(s) 0 Start Date: 06/06/19 Status: Ordered take 1 capsule by mouth once noa ly omeprazole (PriLOSEC) [address] capsule Take 1 capsule (20 mg) by mouth once daily. Active Omeprazole Magne sium 20 MG Oral [...] 2019 12:00am sucralfate 1000 mg oral tablet (4 sources) Aluminum Complex Start: 08-11-2023 End: 08-10-2024 take 1 tablet by mouth once daily sucralfate (Carafate) 1 gram tablet Indications: Carotid atherosclerosis, unspecified laterality Take 1 tablet (1 g) by mouth once daily. 90 tablet 3 08/11/2023 08/10/2024 Active valsartan 320 mg oral tablet (13 sources) Angiotensin 2 Receptor Shaun Start: 08-20-2023 take 1 tablet by mouth once daily valsartan (Diovan) 320 mg tablet Indications: Benign essential hypertension Take 1 tablet (320 mg) by mouth once daily. 90 tablet 08/20/2023 Active Start: 08-11-2023 take 1 tablet [...] 1 (ONE) ml INTRAMUSCULARLY once a month 08/05/2021 Active Start: 05-03-2019 inject 1000 ug [...] MG PO Daily May 02, 2019 11:00pm [facility] Active aspirin 81 mg delayed release oral [...] qMonth, # 10 mL, Refills(s) 3, Pharmacy: [facility], 177, cm, 05/31/20 8:16:00 EDT, Height/Length Dosing, [...] TO THE AFFECTED AREA(S) DAILY as directed 11/13/2020 Active Start: 11-13-2020 Diclofenac Sod ium 1 % External Gel APPLY TO THE AFFECTED AREA(S) DAILY as directed Quantity: 100 Refills: 0 Ordered: 28-Jul-2021 DO Start : 13-Nov-2020 Active Start: 11-02-2019 diclofenac Top 1% gel 1 sruthi, Topical, BID for pain, 60 gram, Refill(s) 1, apply to foot & knee, [facility], 177, cm, 11/01/19 15:36:00 EST, Height/Length Measured, 99.5, kg, 11/01/19 15:36:00 EST, Weight Measured Start Date: 11/02/19 Status: Ordered Start: 05-03-2019 Diclofenac Sod ium Active 1 APPLICATOR TOPICAL Four times daily May 02, 2019 11:00pm oxybutynin chloride 5 mg oral tablet (1 [...] 454 gram, Refill(s) 1, to affected area, [facility] [place],, 177, cm, 12/04/19 10:28:00 EST, Height/Length Measured, 98.6, kg, 12/04/19 10:28:00 EST, Weight Measured Start Date: 12/07/19 Status: Ordered triamcinolone (K enalog) 0.1 % cream USE DIRECTED. Active Triamcinolone Ac etonide 0.1 % External [...] [Paroxysmal supraventricular tachycardia] Onset: 3 05-08-2022 Chronic Conduction disorders (13 sources) Mobitz type II atrioventricular block; Translations: [Atrioventricular block, second degree] 04-11-2022 Chronic Coronary atherosclerosis and other heart disease (20 sources) Coronary arteriosclerosis; Translations: [Atherosclerotic heart disease of cahto coronary artery without angina pectoris] Onset: 3 05-08-2022 Chronic Coronary atherosclerosis and other heart disease (16 sources) Stented coronary artery; Translations: [Presence of [...] disease involving multiple joints 11-01-2019 Chronic Other circulatory disease (13 sources) Presence of other cardiac implants and grafts; Translations: [Implantable loop recorder present] Onset: 3 08-11-2023 Chronic Other circulatory disease (3 sources) Carotid bruit; Translations: [Other specified symptoms and signs involving the circulatory and respiratory systems] 08-11-2023 Episodic Other ear and sense organ disorders (1 source) Hearing difficulty 06-08-2019 Chronic Other gastrointestinal disorders (3 sources) Burping; Translations: [Eructation] Episodic Other lower respiratory disease (2 sources) Shortness of breath; Translations: [Shortness of breath] 05-07-2022 Episodic Other nervous system disorders (1 source) Other chronic pain; Translations: [OTHER CHRONIC PAIN] Onset: 2 Chronic Other nutritional; endocrine; and metabolic disorders (5 sources) Body mass index 30+ - obesity; Translations: [Body mass index (BMI) 30.0-30.9, adult] Onset: 4 08-10-2024 Chronic Other skin disorders (1 source) Inflammatory [...] [Body Mass Index between 19-24, adult] Episodic Screening and history of mental health and substance abuse codes (20 sources) Ex-smoker; Translations: [Personal history of tobacco use] Onset: 2 Resolved: 3 08-11-2023 Episodic Comment on above: Quit smoking 20 year s ago; Spondylosis; intervertebral disc disorders; other back problems (2 sources) Other intervertebral disc degeneration, lumbar region; Translations: [Spondylosis without myelopathy or radiculopathy, lumbar region] Onset: 2 Chronic Spondylosis; intervertebral disc disorders; other back problems (1 source) Chronic low back pain 11-01-2019 Episodic Unclassified (11 sources) Recent myocardial infarction; [...] Classification Problem Date Documented Da te Episodic/Chronic Conditions associated with dizziness or vertigo (20 sources) Dizziness; Translations: [Dizziness and giddiness] Onset: 04-14-2022 Episodic Other aftercare (11 sources) Drug therapy finding; Translations: [Long-term (current) use of anticoagulants] Onset: 08-09-2023 08-09-2023 Episodic Other aftercare (1 source) 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; Translations: [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] Onset: 07-03-2022 Episodic Other aftercare (1 source) Other termite technician (current) drug therapy; Translations: [OTH MILK PICKUP DRIVER CURRENT DRUG THERAPY] Onset: 07-03-2022 Episodic Other circulatory disease (4 sources) Other specified symptoms and signs involving the circulatory and respiratory systems; Translations: [Other specified symptoms and signs involving the circulatory and respiratory systems] Onset: 08-11-2023 Episodic Other disorders of stomach and duodenum (3 sources) Functional dyspepsia; Translations: [FUNCTIONAL DYSPEPSIA] Onset: 04-10-2022 Episodic Other lower respiratory disease (20 sources) Dyspnea; Translations: [Shortness of breath] Onset: 08-09-2023 05-07-2022 Episodic Other nutritional; endocrine; and metabolic disorders (11 sources) Obesity; Translations: [Obesity, unspecified] Onset: 08-09-2023 Resolved: 08-11-2023 08-11-2023 Chronic Superficial injury; contusion (1 source) Abrasion of left upper arm, initial encounter Onset: 04-03-2022 Resolved: 04-03-2022 Episodic Syncope (20 sources) Near syncope; Translations: [Syncope and collapse] Onset: 08-09-2023 05-08-2022 Episodic Unclassified (1 source) CONTACT W/AND (SUSP) EXPOS COVID-19; Translations: [CONTACT W/AND (SUSP) EXPOS COVID-19] Onset: 01-04-2023 Unclassified (1 source) LOW BACK PAIN, UNSPECIFIED; Translations: [LOW BACK PAIN, UNSPECIFIED] Onset: 08-04-2022 Unclassified (1 source) COUGH, UNSPECIFIED; Translations: [COUGH, UNSPECIFIED] Onset: 07-27-2022 Unclassified (4 sources) Onset: 08-11-2023 08-11-2023 Results Test Name Value Interpretation Reference Range Facility [facility] US CAROTID ARTERY DUPLE X BILATERALon 09-29-2023 [facility] CAROTID ARTERY DUPLEX BILATERAL [address], [address] [place] [address] 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; Other specified symptoms and signs involving the circulatory and respiratory systems-R09.89 Indication: Bilateral Carotid Bruit, HTN, Hyperlipidemia, Atrial Fibrillation, CAD, Loop Recorder Implant, CPT Codes: 60132 Cerebrovascular Carotid Duplex scan complete CONCLUSIONS: Right [...] cm/s Right Left ICA/CCA Ratio 1.7 1.0 [id number] Alka Costello MD, FACC Final [facility] INSULINon 02-18-2023 Insulin 38.1 uIU/mL Critically high 2.6-24.9 [facility] Comment on above: Performed By: #### I NSULIN #### [facility] [address] [place] [address] Dr. Bal Stallings BNPon 02-17-2023 Natriuretic peptide B (Bld) [Mass/Vol] 766.0 pg/mL Normal <=1,800.0 [facility] Comment on above: Performed By: #### C MP, HSTROPN #### [facility] [address] [address] [address] Bal Stallings CBC AUTO DIFFon 02-17-2023 BASO # 0.1 103/ul Normal 0.0-0.1 [facility] Comment on above: Performed By: #### C BC #### [facility] [address] [place] [address] Dr. Bal Stallings Basophils/100 WBC (Bld) 0.9 % Normal 0.2-2.0 [facility] Comment on above: Performed By: #### C BC #### [facility] [address] [place] [address] Dr. Bal Stallings EO # 0.1 103/ul Normal 0.0-0.7 [facility] Comment on above: Performed By: #### C BC #### [facility] [address] [place] [address] Dr. Bal Stallings Eosinophils/100 WBC (Bld) 1.4 % Normal 0.9-7.0 [facility] Comment on above: Performed By: #### C BC #### [facility] [address] [place] [address] Dr. Bal Stallings Erythrocyte distribution width (RBC) [Ratio] 13.8 % Normal 11.0-15.0 [facility] Comment on above: Performed By: #### C BC #### [facility] [address] [place] [address] Dr. Bal Stallings Hematocrit (Bld) [Volume fraction] 42.2 % Normal 42.0-54.0 [facility] Comment on above: Performed By: #### C BC #### [facility] [address] [place] [address] Dr. Bal Stallings Hemoglobin (Bld) [Mass/Vol] 13.9 g/dL Critically low 14.0-18.0 [facility] Comment on above: Performed By: #### C BC #### [facility] [address] [place] [address] Dr. Bal Stallings IG # 0.02 10e3/ul Normal 0.00-0.03 [facility] Comment on above: Performed By: #### C BC #### [facility] [address] [place] [address] Dr. Bal Stallings IG % 0.2 % Normal 0.0-0.5 [facility] Comment on above: Performed By: #### C BC #### [facility] [address] [place] [address] Dr. Bal Stallings LYMPH # 2.0 103/ul Normal 1.2-3.8 [facility] Comment on above: Performed By: #### C BC #### [facility] [address] [place] [address] Dr. Bal Stallings Lymphocytes/100 WBC (Bld) 21.1 % Normal 20.5-60.0 [facility] Comment on above: Performed By: #### C BC #### [facility] [address] [place] [address] Dr. Bal Stallings MANUAL DIFF REQ NO Normal [facility] Comment on above: Performed By: #### C BC #### [facility] [address] [place] [address] Dr. Bal Stallings MCH (RBC) [Entitic mass] 30.8 pg Normal 25.9-34.0 [facility] Comment on above: Performed By: #### C BC #### [facility] [address] [place] [address] Dr. Bal Stallings MCHC (RBC) [Mass/Vol] 32.9 g/dL Normal 29.9-35.2 [facility] Comment on above: Performed By: #### C BC #### [facility] [address] [place] [address] Dr. Bal Stallings MCV (RBC) [Entitic vol] 93.6 fL Normal 80.0-94.0 [facility] Comment on above: Performed By: #### C BC #### [facility] [address] [place] [address] Dr. Bal Stallings MONO # 0.5 103/ul Normal 0.3-0.8 [facility] Comment on above: Performed By: #### C BC #### [facility] [address] [place] [address] Dr. Bal Stallings Monocytes/100 WBC (Bld) 5.2 % Normal 1.7-12.0 [facility] Comment on above: Performed By: #### C BC #### [facility] [address] [place] [address] Dr. Bal Stallings NEUT # 6.6 103/ul Critically high 1.4-6.5 [facility] Comment on above: Performed By: #### C BC #### [facility] [address] [place] [address] Dr. Bal Stallings Neutrophils/100 WBC (Bld) 71.2 % Normal 43.0-75.0 [facility] Comment on above: Performed By: #### C BC #### [facility] [address] [place] [address] Dr. Bal Stallings Platelet mean volume (Bld) [Entitic vol] 10.6 fL Normal 9.5-13.5 [facility] Comment on above: Performed By: #### C BC #### [facility] [address] [place] [address] Dr. Bal Stallings PLT 245 103/ul Normal 150-450 [facility] Comment on above: Performed By: #### C BC #### [facility] [address] [place] [address] Dr. Bal Stallings RBC 4.51 106/ul Critically low 4.70-6.10 [facility] Comment on above: Performed By: #### C BC #### [facility] [address] [place] [address] Dr. Bal Stallings WBC 9.3 103/ul Normal 4.0-11.0 [facility] Comment on above: Performed By: #### C BC #### [facility] [address] [place] [address] Dr. Bal Stallings FREE THYROXINE INDEX T7on FTI 2.26 Normal 1.30-4.50 [facility] Comment on above: Performed By: #### C MP, HSTROPN #### [facility] [address] [address] [address] Bal Stallings T3U 31.0 % Critically low 33.0-40.0 [facility] Comment on above: Performed By: #### C JAZZY, HSTROPN #### [facility] [address] [address] [address] Bal Stallings T4 [Mass/Vol] 7.30 ug/dL Normal 4.50-12.10 [facility] Comment on above: Performed By: #### C JAZZY, HSTROPN #### [facility] [address] [address] [address] Bal Stallings GLYCOHEMOGLOBIN A1Con 2022 ADA RECOMMENDATION SEE BELOW Normal [facility] Comment on above: Result Comment: ADA RECOMMENDED LIMIT 4.0 - 6.0 ADA THERAPEUTIC TARGET < 7.0 ACTION SUGGESTED > 7.0 Performed By: #### C JAZZY, HSTROPN #### [facility] [address] [place] [address] Dr. Bal Stallings Glucose [Mass/Vol] 140 mg/dL Normal [facility] Comment on above: Performed By: #### C JAZZY HSTROPN #### [facility] [address] [place] [address] Dr. Bal Stallings HbA1c (Bld) [Mass fraction] 6.5 % Critically high 4.5-6.2 [facility] Comment on above: Performed By: #### C JAZZY HSTROPN #### [facility] [address] [place] [address] Dr. Bal Stallings PROF 14(COMP METB)on 023 Albumin [Mass/Vol] 3.9 g/dL Normal 3.4-5.0 [facility] Comment on above: Performed By: #### C VDTBH #### [facility] [address] [place] [address] Dr. Bal Stallings Albumin/Globulin [Mass ratio] 1.2 {ratio} Normal [facility] Comment on above: Performed By: #### C VDTBH #### [facility] [address] [place] [address] Dr. Bal Stallings ALP [Catalytic activity/Vol] 96 U/L Normal 46-116 [facility] Comment on above: Performed By: #### C VDTBH #### [facility] [address] [place] [address] Dr. Bal Stallings ALT [Catalytic activity/Vol] 28 U/L Normal 16-63 [facility] Comment on above: Performed By: #### C VDTBH #### [facility] [address] [place] [address] Dr. Bal Stallings Anion gap [Moles/Vol] 14.7 mmol/L Normal [facility] Comment on above: Performed By: #### C VDTBH #### [facility] [address] [place] [address] Dr. Bal Stallings AST [Catalytic activity/Vol] 15 U/L Normal 15-37 [facility] Comment on above: Performed By: #### C VDTBH #### [facility] [address] [place] [address] Dr. Bal Stallings Bilirubin [Mass/Vol] 0.6 mg/dL Normal 0.2-1.0 [facility] Comment on above: Performed By: #### C VDTBH #### [facility] [address] [place] [address] Dr. Bal Stallings Calcium [Mass/Vol] 9.1 mg/dL Normal 8.5-10.1 [facility] Comment on above: Performed By: #### C VDTBH #### [facility] [address] [place] [address] Dr. Bal Stallings Chloride [Moles/Vol] 102 mmol/L Normal 98-107 [facility] Comment on above: Performed By: #### C VDTBH #### [facility] [address] [place] [address] Dr. Bal Stallings CO2 [Moles/Vol] 25.7 mmol/L Normal 21.0-32.0 [facility] Comment on above: Performed By: #### C VDTBH #### [facility] [address] [place], [place] [id number] Dr. Bal Stallings Creatinine [Mass/Vol] 1.33 mg/dL Critically high 0.70-1.30 [facility] Comment on above: Performed By: #### C VDTBH #### [facility] [address] [place] [address] Dr. Bal Stallings EGFR-AF MONEGASQUE >60 Normal >=60 [facility] Comment on above: Performed By: #### C VDTBH #### [facility] [address] [address] [address] Bal Stallings EGFR-NON AF MONEGASQUE 51 mL/min/1.73m2 Critically low >=60 [facility] Comment on above: Performed By: #### C VDTBH #### [facility] Laboratory [address] [place] [address] Dr. Bal Stallings Globulin (S) [Mass/Vol] 3.3 g/dL Normal [facility] Comment on above: Performed By: #### C VDTBH #### [facility] [address] [place] [address] Dr. Bal Stallings Glucose [Mass/Vol] 112 mg/dL Critically high 74-106 [facility] Comment on above: Performed By: #### C VDTBH #### [facility] [address] [place] [address] Dr. Bal Stallings Potassium [Moles/Vol] 4.4 mmol/L Normal 3.5-5.1 [facility] Comment on above: Performed By: #### C VDTBH #### [facility] [address] [place] [address] Dr. Bal Stallings Protein [Mass/Vol] 7.2 g/dL Normal 6.4-8.2 [facility] Comment on above: Performed By: #### C VDTBH #### [facility] [address] [place] [address] Dr. Bal Stallings Sodium [Moles/Vol] 138 mmol/L Normal 136-145 [facility] Comment on above: Performed By: #### C VDTBH #### [facility] [address] [place] [address] Dr. Bal Stallings Urea nitrogen [Mass/Vol] 19.0 mg/dL Critically high 7.0-18 .0 [facility] Comment on above: Performed By: #### C VDTBH #### [facility] [address] [place] [address] Dr. Bal Stallings Urea nitrogen/Creatinine [Mass ratio] 14.3 mg/mg Normal [facility] Comment on above: Performed By: #### C VDTBH #### [facility] [address] [place] [address] Dr. Bal Stallings TSHon 02-17-2023 TSH 1.744 uIU/mL Normal 0.358-3.740 [facility] Comment on above: Performed By: #### C VDTBH #### [facility] [address] [place] [address] Dr. Bal Stallings VITAMIN D 25 OHon 02-17-2023 VIT D 25-OH 18.4 ng/mL Normal [facility] Comment on above: Performed By: #### C MP, HSTROPN #### [facility] [address] [place] [address] Dr. Bal Stallings VIT D RANGES SEE BELOW Normal [facility] Comment on above: Result Comment: <20 ng/mL Vit D deficient 20 - <30 ng/mL Vit D insufficient 30 - 100 ng/mL Vit D sufficient >100 ng/mL Potential Toxicity Performed By: #### C JAZZY, HSTROPN #### [facility] [address] [place] [address] Dr. Bal Stallings Covid-19 PCR ([facility])on 12-17 SARS-CoV-2 (COVID-19) RNA MERLYN+probe Ql (Unsp spec) Not detected Normal NOT DETECTED [facility] Comment on above: Result Comment: This test is not yet approved or cleared by the [place] FDA. When there are no FDA-approved or cleared tests available, and other criteria are met, FDA can make tests available under an emergency access mechanism called an Emergency Use Authorization (EUA). The EUA for this test is supported by the [place] of Health and Human Service's (HHS's) declaration [...] SARS-CoV-2. Performed By: #### C VDTBH #### [facility] [address] [place] [address] Dr. Bal Stallings INFLUENZA A AND B AGon 01-04 INFLUANEGH SEE BELOW Normal [facility] Comment on above: Result Comment: Nega tive for Flu A protein angiten. Infection due to Flu A cannot be ruled out. Flu A angiten in the sample may be below the detection limit of the test. Performed By: #### I NFLUAB #### [facility] [address] [place] [address] Dr. Bal Stallings INFLUBNEG SEE BELOW Normal [facility] Comment on above: Result Comment: Nega tive for Flu B protein antigen. Infection due to Flu B cannot be ruled out. Flu B antigen in the sample may be below the detection limit of the test. Performed By: #### I NFLUAB #### [facility] [address] [place] [address] Dr. Bal Stallinsg INFLUENZA A AG Negative Normal NEGATIVE SEE COMMENT [facility] Comment on above: Performed By: #### I NFLUAB #### [facility] [address] [place] [address] Dr. Bal Stallings INFLUENZA B AG Negative Normal NEGATIVE SEE COMMENT [facility] Comment on above: Performed By: #### I NFLUAB #### [facility] [address] [place] [address] Dr. Bal Stallings SYMPTOMATIC COVID-19 ANTIGEN on 01-04-2023 EUA Statement SEE BELOW Normal [facility] Comment on above: Result Comment: This [...] is revoked sooner. Performed By: #### C VDTB #### [facility] [address] [place] [address] Dr. Bal Stallings SARS-CoV-2 (COVID-19) RNA MERLYN+probe Ql (Unsp spec) Negative Normal NEGATIVE [facility] Comment on above: Performed By: #### C VDTB #### [facility] [address] [place] [address] Dr. 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 Fry with preserved LV function. He has underlying hypertension, obesity and paroxysmal atrial fibrillation diagnosed during his PA with successful cardioversion but no further episodes [...] his daughter this morning in regards to [id number] score, history of transient atrial fib and [...] Former smoker (more content not included)... 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 I will need to contact [place] [facility] to have report sent to [facility]. He otherwise denies any type of exertional [...] MG Or (more content not included)... Normal [employer] Tobacco Screening.on 022 Fall risk assessment a) No falls within the last year -[facility] 250 DO Work Phone: Tobacco use status CPHS b) No M [facility] [employer] [place] 250 DO Work Phone: Covid-19 PCR ([facility])on 07-18 SARS-CoV-2 (COVID-19) RNA MERLYN+probe Ql (Unsp spec) Not detected Normal NOT DETECTED [facility] Comment on above: Result Comment: This test is not yet approved or cleared by the [place] FDA. When there are no FDA-approved or cleared tests available, and other criteria are met, FDA can make tests available under an emergency access mechanism called an Emergency Use Authorization (EUA). The EUA for this test is supported by the [employer] of Health and Human Service's (HHS's) declaration [...] consistent with SARS-CoV-2. Performed By: #### C , HSTROPN #### [facility] [address] [address] [address] Bal Stallings Office Visit (Cardiology)on 07-06-2022 Follow-up visit Diagnoses/Problems Assessed Benign essential hypertension (401.1) (I10) Class 1 obesity with body mass index (BMI) of 31.0 to 31.9 in adult (278.00,V85.31) (E66.9,Z68.31) Orders Class 1 obesity with body mass index (BMI) of 31.0 to 31.9 in adult Healthy Weight Tips; Status:Complete; Done: [id number] Patient Instructions Please bring all medicines, vitamins, [...] contact the office if new symptoms arise. [employer] in 3 weeks - bring your blood pressure machine Chief Complaint BP f/u and medication changes 'doing fine' MACARIO ASH is being seen for hypertension and a medication change. Ambulatory with steady gait, accompanied by . Last evaluated in clinic by Dr. Swanson May 2022. At that time - Norvasc d/c'd d/t edema - improved off treatment [...] and no PND. Vitals Vital Signs Recorded: [id number] 10:05AM Heart Rate70, R Radial Xxwmmitz169, LUE Pennceiff55, LUE Height (more content not included)... Normal [employer] Tobacco Screening.on 022 Fall risk assessment a) No falls within the last year [facility] [place] 250 DO Work Phone: Tobacco use status CPHS b) No M [facility] [place] 250 DO Work Phone: CBC AUTO DIFFon 07-01-2022 BASO # 0.1 103/ul Normal 0.0-0.1 [facility] Comment on above: Performed By: #### C BC #### [facility] [address] [place] [address] Dr. Bal Stallings Basophils/100 WBC (Bld) 1.0 % Normal 0.2-2.0 [facility] Comment on above: Performed By: #### C BC #### [facility] [address] [place] [address] Dr. Bal Stallings EO # 0.1 103/ul Normal 0.0-0.7 [facility] Comment on above: Performed By: #### C BC #### [facility] [address] [place] [address] Dr. Bal Stallings Eosinophils/100 WBC (Bld) 1.5 % Normal 0.9-7.0 [facility] Comment on above: Performed By: #### C BC #### [facility] [address] [place] [address] Dr. Bal Stallings Erythrocyte distribution width (RBC) [Ratio] 13.7 % Normal 11.0-15.0 [facility] Comment on above: Performed By: #### C BC #### [facility] [address] [place] [address] Dr. Bal Stallings Hematocrit (Bld) [Volume fraction] 38.9 % Critically low 42.0-54.0 [facility] Comment on above: Performed By: #### C BC #### [facility] [address] [place] [address] Dr. Bal Stallings Hemoglobin (Bld) [Mass/Vol] 13.1 g/dL Critically low 14.0-18.0 [facility] Comment on above: Performed By: #### C BC #### [facility] [address] [place] [address] Dr. Bal Stallings IG # 0.01 10e3/ul Normal 0.00-0.03 [facility] Comment on above: Performed By: #### C BC #### [facility] [address] [place] [address] Dr. Bal Stallings IG % 0.1 % Normal 0.0-0.5 [facility] Comment on above: Performed By: #### C BC #### [facility] [address] [place] [address] Dr. Bal Stallings LYMPH # 2.4 103/ul Normal 1.2-3.8 [facility] Comment on above: Performed By: #### C BC #### [facility] [address] [place] [address] Dr. Bal Stallings Lymphocytes/100 WBC (Bld) 30.0 % Normal 20.5-60.0 [facility] Comment on above: Performed By: #### C BC #### [facility] [address] [place] [address] Dr. Bal Stallings MANUAL DIFF REQ NO Normal [facility] Comment on above: Performed By: #### C BC #### [facility] [address] [place] [address] Dr. Bal Stallings MCH (RBC) [Entitic mass] 31.4 pg Normal 25.9-34.0 [facility] Comment on above: Performed By: #### C BC #### [facility] [address] [place] [address] Dr. Bal Stallings MCHC (RBC) [Mass/Vol] 33.7 g/dL Normal 29.9-35.2 [facility] Comment on above: Performed By: #### C BC #### [facility] [address] [place] [address] Dr. Bal Stallings MCV (RBC) [Entitic vol] 93.3 fL Normal 80.0-94.0 [facility] Comment on above: Performed By: #### C BC #### [facility] [address] [place] [address] Dr. Bal Stallings MONO # 0.6 103/ul Normal 0.3-0.8 [facility] Comment on above: Performed By: #### C BC #### [facility] [address] [place] [address] Dr. Bal Stallings Monocytes/100 WBC (Bld) 7.8 % Normal 1.7-12.0 [facility] Comment on above: Performed By: #### C BC #### [facility] [address] [place] [address] Dr. Bal Stallings NEUT # 4.8 103/ul Normal 1.4-6.5 [facility] Comment on above: Performed By: #### C BC #### [facility] [address] [place] [address] Dr. Bal Stallings Neutrophils/100 WBC (Bld) 59.6 % Normal 43.0-75.0 [facility] Comment on above: Performed By: #### C BC #### [facility] [address] [place] [address] Dr. Bal Stallings Platelet mean volume (Bld) [Entitic vol] 10.7 fL Normal 9.5-13.5 [facility] Comment on above: Performed By: #### C BC #### [facility] [address] [place] [address] Dr. Bal Stallings PLT 213 103/ul Normal 150-450 [facility] Comment on above: Performed By: #### C BC #### [facility] [address] [place], [place] [id number] Dr. Bal tSallings RBC 4.17 106/ul Critically low 4.70-6.10 [facility] Comment on above: Performed By: #### C BC #### [facility] [address] [place] [address] Dr. Bal Stallings WBC 8.1 103/ul Normal 4.0-11.0 [facility] Comment on above: Performed By: #### C BC #### [facility] [address] [address] [address] HEAD WO CONon [...] by: MARTY KHAN Date: 2022-07-01 18:44 Normal [facility] PROF 14(COMP METB)on 022 Albumin [Mass/Vol] 3.9 g/dL Normal 3.4-5.0 [facility] Comment on above: Performed By: #### C RACHELLE PURCELLTRHUGHN #### [facility] [address] [address] [address] Bal Stallings Albumin/Globulin [Mass ratio] 1.3 {ratio} Normal [facility] Comment on above: Performed By: #### C PADMINI PURCELL #### [facility] [address] [address] [address] Bal Stallings ALP [Catalytic activity/Vol] 81 U/L Normal 46-116 [facility] Comment on above: Performed By: #### C RACHELLE PURCELLTRHUGHN #### [facility] [address] [address] [address] Bal Stallings ALT [Catalytic activity/Vol] 45 U/L Normal 16-63 [facility] Comment on above: Performed By: #### C JAZZY, HSTROPN #### [facility] [address] [address] [address] Bal Stallings Anion gap [Moles/Vol] 13.8 mmol/L Normal [facility] Comment on above: Performed By: #### C JAZZY, HSTROPN #### [facility] [address] [address] [address] Bal Stallings AST [Catalytic activity/Vol] 27 U/L Normal 15-37 [facility] Comment on above: Performed By: #### C JAZZY, HSTROPN #### [facility] [address] [address] [address] Bal Stallings Bilirubin [Mass/Vol] 0.7 mg/dL Normal 0.2-1.0 [facility] Comment on above: Performed By: #### C JAZZY, HSTROPN #### [facility] [address] [place] [address] Dr. Bal Stallings Calcium [Mass/Vol] 8.9 mg/dL Normal 8.5-10.1 [facility] Comment on above: Performed By: #### C JAZZY, HSTROPN #### [facility] [address] [place] [address] Dr. Bal Stallings Chloride [Moles/Vol] 105 mmol/L Normal 98-107 [facility] Comment on above: Performed By: #### C JAZZY, HSTROPN #### [facility] [address] [place] [address] Dr. Bal Stallings CO2 [Moles/Vol] 23.7 mmol/L Normal 21.0-32.0 [facility] Comment on above: Performed By: #### C JAZZY, HSTROPN #### [facility] [address] [place] [address] Dr. Bal Stallings Creatinine [Mass/Vol] 1.28 mg/dL Normal 0.70-1.30 [facility] Comment on above: Performed By: #### C JAZZY, HSTROPN #### [facility] [address] [address] [address] Bal Stallings EGFR-AF MONEGASQUE >60 Normal >=60 [facility] Comment on above: Performed By: #### C MP, HSTROPN #### [facility] [address] [address] [address] Bal Stallings EGFR-NON AF MONEGASQUE 53 mL/min/1.73m2 Critically low >=60 [facility] Comment on above: Performed By: #### C MP, HSTROPN #### [facility] [address] [address] [address] Bal Stallings Globulin (S) [Mass/Vol] 3.1 g/dL Normal T [facility] Comment on above: Performed By: #### C MP, HSTROPN #### [facility] [address] [place] [address] Dr. Bal Stallings Glucose [Mass/Vol] 106 mg/dL Normal 74-106 [facility] Comment on above: Performed By: #### C MP, HSTROPN #### [facility] [address] [address] [address] Bal Stallings Potassium [Moles/Vol] 4.5 mmol/L Normal 3.5-5.1 [facility] Comment on above: Performed By: #### C MP, HSTROPN #### [facility] [address] [address] [address] Bal Stallings Protein [Mass/Vol] 7.0 g/dL Normal 6.4-8.2 [facility] Comment on above: Performed By: #### C MP, HSTROPN #### [facility] [address] [address] [address] Bal Stallings Sodium [Moles/Vol] 138 mmol/L Normal 136-145 [facility] Comment on above: Performed By: #### C MP, HSTROPN #### [facility] [address] [address] [address] Bal Stallings Urea nitrogen [Mass/Vol] 26.0 mg/dL Critically high 7.0-18 .0 [facility] Comment on above: Performed By: #### C JAZZY, HSTROPN #### [facility] [address] [address] [address] Bal Stallings Urea nitrogen/Creatinine [Mass ratio] 20.3 mg/mg Normal [facility] Comment on above: Performed By: #### C JAZZY HSTROPN #### [facility] [address] [address] [address] Bal Stallings TROPONIN, HIGH SENSITIVITYon 07-01-2022 HSTROP 39.7 pg/mL Normal 4.0-76.1 [facility] Comment on above: Result Comment: CUT- OFF POINTS HAVE BEEN ESTABLISHED BASED ON THE FOURTH UNIVERSAL DEFINITIONS OF MYOCARDIAL INFARCTION. THE UPPER REFERENCE LIMIT (URL) OF TROPONIN, DEFINED THE 99TH PERCENTILE OF cTnI DISTRIBUTION IN A REFERENCE POPULATION, HAS BEEN CONFIRMED THE DECISION THRESHOLD FOR PA DIAGNOSIS. Performed By: #### C JAZZY HSTROPN #### [facility] [address] [place] [address] Dr. Bal Stallings XR CHEST 1 Von [...] by: MACARIO LA Date: 2022-07-01 17:14 Normal [facility] Tobacco Screening.on 022 Adult depression screening assessment No [facility] [employer] [place] 250 DO Work Phone: Fall risk assessment a) No falls within the last year [facility] [employer] [place] 250 DO Work Phone: Tobacco use status CPHS b) No M [facility] [employer] [place] 250 DO Work Phone: Activated partial thrombopla stin time (aPTT) in platelet poor plasma by coagulation aOrdered By: Christ Ansari on 05-07-2022 aPTT Coag (PPP) [Time] 30.8 s 25.1-36.5 [facility] Basophils Auto (Bld) [#/Vol] Ordered By: Christ Ansari on 05-07-2022 Basophils (Bld) [#/Vol] 0.1 10*3/uL 0.0-0.2 [facility] Basophils/100 WBC Auto (Bld) Ordered By: Christ Ansari on 05-07-2022 Basophils/100 WBC (Bld) 1.5 % . F [facility] Blood hemoglobin measurement (mass/volume)Ordered By: Christ Ansari on 05-07-2022 Hemoglobin (Bld) [Mass/Vol] 13.8 g/dL 13.0-17.0 [facility] Blood leukocytes automated c ount (number/volume)Ordered By: Christ Ansari on 05-07-2022 WBC (Bld) [#/Vol] 7.1 10*3/uL 4.5-11.0 [facility] COVID-19 Positive/NegativeOr dered By: Christ Ansari on 05-07-2022 SARS-CoV-2 (COVID-19) N gene MERLYN+probe Ql (Resp) Negative Negative [facility] Comment on above: Testing for SARS-CoV -2 by RT-PCR This test was developed and its performance characteristics determined by [employer] and validated at the [facility]. This test has not been [...] (COVID-19) Ag IA.rapid Ql (Resp) Negative Negative [facility] Comment on above: This is a duplicate Soo SARS Antigen (RUBÉN) result to be used for statistical tracking purpose only. Creatine kinase [Enzymatic a ctivity/volume] in Serum or PlasmaOrdered By: Christ Ansari on 05-07-2022 CK [Catalytic activity/Vol] 90 U/L 22269 [facility] Creatinine and Glomerular fi ltration rate.predicted panel (S/P/Bld)Ordered By: Christ Ansari on 05-07-2022 Creatinine [Mass/Vol] 1.17 mg/dL 0.64-1.27 [facility] Eosinophils Auto (Bld) [#/Vo l]Ordered By: Christ Ansari on 05-07-2022 Eosinophils (Bld) [#/Vol] 0.1 10*3/uL 0.0-0.45 [facility] Eosinophils/100 WBC Auto (Bl d)Ordered By: Christ Ansari on 05-07-2022 Eosinophils/100 WBC (Bld) 1.3 % . [facility] Erythrocyte distribution wid th Auto (RBC) [Ratio]Ordered By: Christ Ansari on 05-07-2022 Erythrocyte distribution width (RBC) [Ratio] 13.5 % 12.0-14.8 [facility] Estimated glomerular filtrat ion rate (GFR) non- AmericanOrdered By: Christ Ansari on 05-07-2022 GFR/1.73 sq M.predicted among non-blacks MDRD (S/P/Bld) [Vol rate/Area] 59 mL/Min [facility] Hematocrit Auto (Bld) [Volum e fraction]Ordered By: Christ Ansari on 05-07-2022 Hematocrit (Bld) [Volume fraction] 40.3 % 38.8-50.0 [facility] Laboratory - Chemistry and C hemistry - challengeOrdered By: Christ Ansari on 05-07-2022 Natriuretic peptide B (Bld) [Mass/Vol] 106.0 pg/mL 5-100 [facility] Laboratory - CoagulationOrde red By: Christ Ansari on 05-07-2022 PT Coag (PPP) [Time] 13.3 s 9.0-12.9 [facility] - Hematology and Cell countsOrdered By: Christ Ansari on 05-07-2022 Nucleated RBC/100 WBC (Bld) [Ratio] 0.1 % 0-0.5 [facility] Laboratory - Microbiology an d Antimicrobial susceptibilityOrdered By: Christ Ansari on 05-07-2022 SARS-CoV-2 (COVID-19) RNA MERLYN+probe Ql (Unsp spec) N/A [facility] Lymphocytes Auto (Bld) [#/Vo l]Ordered By: Christ Ansari on 05-07-2022 Lymphocytes (Bld) [#/Vol] 1.6 10*3/uL 1.00-4.8 [facility] Lymphocytes/100 WBC Auto (Bl d)Ordered By: Christ Ansari on 05-07-2022 Lymphocytes/100 WBC (Bld) 23.2 % . [facility] MCH Auto (RBC) [Entitic mass ]Ordered By: Christ Ansari on 05-07-2022 MCH (RBC) [Entitic mass] 32.0 pg 27.5-35.2 [facility] MCHC Auto (RBC) [Mass/Vol]Or dered By: Christ Ansari on 05-07-2022 MCHC (RBC) [Mass/Vol] 34.2 g/dL 32.5-35.6 [facility] MCV Auto (RBC) [Entitic vol] Ordered By: Christ Ansari on 05-07-2022 MCV (RBC) [Entitic vol] 93.5 fL 83.5-101 F [facility] Monocytes Auto (Bld) [#/Vol] Ordered By: Christ Ansari on 05-07-2022 Monocytes (Bld) [#/Vol] 0.6 10*3/uL 0.0-0.8 [facility] Monocytes/100 WBC Auto (Bld) Ordered By: Christ Ansari on 05-07-2022 Monocytes/100 WBC (Bld) 8.6 % . F [facility] Neutrophils Auto (Bld) [#/Vo l]Ordered By: Christ Ansari on 05-07-2022 Neutrophils (Bld) [#/Vol] 4.6 10*3/uL 1.8-7.7 [facility] Neutrophils/100 WBC Auto (Bl d)Ordered By: Christ Ansari on 05-07-2022 Neutrophils/100 WBC (Bld) 65.4 % . [facility] No Panel InformationOrdered By: Christ Ansari on 05-07-2022 Estimated GFR () > 60 mL/Min [facility] Comment on above: GFR estimated refere nce range: According to KDOQI guidelines, <60 ml/min/1.73m2 is sufficient to diagnose a patient with chronic kidney disease. Pharmacy Creatinine Clearance (Chem 52.05 [facility] SARS Antigen (LFIA) [facility] Platelet mean volume Auto (B ld) [Entitic vol]Ordered By: Christ Ansari on 05-07-2022 Platelet mean volume (Bld) [Entitic vol] 9.5 fL 6.6-10.1 [facility] Platelet poor plasma interna tional normalized ratio (INR) by coagulation assay (relatOrdered By: Christ Ansari on 05-07-2022 INR Coag (PPP) [Relative time] 1.2 {INR} [facility] Comment on above: INR Therapeutic [...] 05-07-2022 Platelets (Bld) [#/Vol] 178 10*3/uL 150-450 [facility] RBC Auto (Bld) [#/Vol]Ordere d By: Christ Ansari on 05-07-2022 RBC (Bld) [#/Vol] 4.31 10*6/uL 3.90-5.60 [facility] Serum or plasma calcium cain urement (mass/volume)Ordered By: Christ Ansari on 05-07-2022 Calcium [Mass/Vol] 9.5 mg/dL 8.2-10.2 [facility] Serum or plasma chloride vanessa surement (moles/volume)Ordered By: Christ Ansari on 05-07-2022 Chloride [Moles/Vol] 102 mmol/L 95-114 [facility] Serum or plasma creatine kin ase MB (CKMB)/total creatine kinase (CK) ratio by calculaOrdered By: Christ Ansari on 05-07-2022 CK.MB Calc [Catalytic fraction] 3.2 % 0.00-2.50 [facility] Serum or plasma creatine kin ase MB measurement (mass/volume)Ordered By: Christ Ansari on 05-07-2022 CK.MB [Mass/Vol] 2.9 ng/mL 0.6-6.3 [facility] Serum or plasma glucose cain urement (mass/volume)Ordered By: Christ Ansari on 05-07-2022 Glucose [Mass/Vol] 118 mg/dL 70-100 [facility] Comment on above: ADA recommended refe rence range Random Glucose Reference Range is dependent on time and content of last meal. Glucose of more than 200 mg/dL in a nonstressed, ambulatory subject supports the diagnosis of Diabetes Mellitus. Serum or plasma potassium me asurement (moles/volume)Ordered By: Christ Ansari on 05-07-2022 Potassium [Moles/Vol] 3.9 mmol/L 3.5-5.1 [facility] Serum or plasma sodium measu rement (moles/volume)Ordered By: Christ Ansari on 05-07-2022 Sodium [Moles/Vol] 133 mmol/L 136-146 [facility] Serum or plasma total carbon dioxide measurement (moles/volume)Ordered By: Christ Ansari on 05-07-2022 CO2 [Moles/Vol] 22.2 mmol/L 22.0-30.0 [facility] Serum or plasma urea nitroge n measurement (mass/volume)Ordered By: Christ Ansari on 05-07-2022 Urea nitrogen [Mass/Vol] 14 mg/dL 9-23 [facility] Troponin I.cardiac [Mass/vol ume] in Serum or Plasma by High sensitivity methodOrdered By: Lidia Borja on 05-07-2022 Troponin I.cardiac High sensitivity method [Mass/Vol] 13 pg/mL 0-20 [facility] Troponin I.cardiac [Mass/vol ume] in Serum or Plasma by High sensitivity methodOrdered By: Christ Ansari on 05-07-2022 Troponin I.cardiac High sensitivity method [Mass/Vol] 12 pg/mL 0-20 [facility] Albumin [Mass/volume] in Ser um or PlasmaOrdered By: Kel pSarrow on 04-12-2022 Albumin [Mass/Vol] 3.2 g/dL 3.2-5.5 [facility] Basophils Auto (Bld) [#/Vol] Ordered By: Kel Sparrow on 04-12-2022 Basophils (Bld) [#/Vol] 0.1 10*3/uL 0.0-0.2 [facility] Basophils/100 WBC Auto (Bld) Ordered By: Kel Sparrow on 04-12-2022 Basophils/100 WBC (Bld) 1.0 % . F [facility] Blood hemoglobin measurement (mass/volume)Ordered By: Kel Sparrow on 04-12-2022 Hemoglobin (Bld) [Mass/Vol] 13.3 g/dL 13.0-17.0 [facility] Blood leukocytes automated c ount (number/volume)Ordered By: Kel Sparrow on 04-12-2022 WBC (Bld) [#/Vol] 10.6 10*3/uL 4.5-11.0 [facility] Cholesterol [Mass/volume] in Serum or PlasmaOrdered By: Selam Noble on 04-12-2022 Cholesterol [Mass/Vol] 118 mg/dL 140-200 [facility] Comment on above: Chol less than 200 m g/dl low risk Chol 201-239 mg/dl borderline risk Chol 240 mg/dl and greater high risk Cholesterol in LDL Calc [Mas s/Vol]Ordered By: Selam Noble on 04-12-2022 Cholesterol in LDL [Mass/Vol] 53 mg/dL 0-100 [facility] Comment on above: LDL ATP III CLASSIFI CATION LDL less than 100 mg/dL Optimal LDL 100-129 mg/dL Near or above optimal LDL 130-159 mg/dL Borderline high LDL 160-189 mg/dL High LDL greater than 189 mg/dL Very high Cholesterol in VLDL Calc [Ma ss/Vol]Ordered By: Selam Noble on 04-12-2022 Cholesterol in VLDL [Mass/Vol] 8 mg/dL [facility] Creatinine and Glomerular fi ltration rate.predicted panel (S/P/Bld)Ordered By: Kel Sparrow on 04-12-2022 Creatinine [Mass/Vol] 0.98 mg/dL 0.64-1.27 [facility] Eosinophils Auto (Bld) [#/Vo l]Ordered By: Kel Sparrow on 04-12-2022 Eosinophils (Bld) [#/Vol] 0.3 10*3/uL 0.0-0.45 [facility] Eosinophils/100 WBC Auto (Bl d)Ordered By: Kel Sparrow on 04-12-2022 Eosinophils/100 WBC (Bld) 2.7 % . [facility] Erythrocyte distribution wid th Auto (RBC) [Ratio]Ordered By: Kel Sparrow on 04-12-2022 Erythrocyte distribution width (RBC) [Ratio] 13.9 % 12.0-14.8 [facility] Estimated glomerular filtrat ion rate (GFR) non- AmericanOrdered By: Kel Sparrow on 04-12-2022 GFR/1.73 sq M.predicted among non-blacks MDRD (S/P/Bld) [Vol rate/Area] > 60 mL/Min [facility] Globulin Calc (S) [Mass/Vol] Ordered By: Kel Sparrow on 04-12-2022 Globulin (S) [Mass/Vol] 2.7 g/dL [facility] Hematocrit Auto (Bld) [Volum e fraction]Ordered By: Kel Sparrow on 04-12-2022 Hematocrit (Bld) [Volume fraction] 39.2 % 38.8-50.0 [facility] Laboratory - Hematology and Cell countsOrdered By: Kel Sparrow on 04-12-2022 Nucleated RBC/100 WBC (Bld) [Ratio] 0.1 % 0-0.5 [facility] Lymphocytes Auto (Bld) [#/Vo l]Ordered By: Kel Sparrow on 04-12-2022 Lymphocytes (Bld) [#/Vol] 2.2 10*3/uL 1.00-4.8 [facility] Lymphocytes/100 WBC Auto (Bl d)Ordered By: Kel Sparrow on 04-12-2022 Lymphocytes/100 WBC (Bld) 20.7 % . [facility] MCH Auto (RBC) [Entitic mass ]Ordered By: Kel Sparrow on 04-12-2022 MCH (RBC) [Entitic mass] 31.9 pg 27.5-35.2 [facility] MCHC Auto (RBC) [Mass/Vol]Or dered By: Kel Sparrow on 04-12-2022 MCHC (RBC) [Mass/Vol] 33.9 g/dL 32.5-35.6 [facility] MCV Auto (RBC) [Entitic vol] Ordered By: Kel Sparrow on 04-12-2022 MCV (RBC) [Entitic vol] 93.8 fL 83.5-101 [facility] Monocytes Auto (Bld) [#/Vol] Ordered By: Kel Sparrow on 04-12-2022 Monocytes (Bld) [#/Vol] 0.9 10*3/uL 0.0-0.8 [facility] Monocytes/100 WBC Auto (Bld) Ordered By: Kel Sparrow on 04-12-2022 Monocytes/100 WBC (Bld) 8.8 % . [facility] Neutrophils Auto (Bld) [#/Vo l]Ordered By: Kel Sparrow on 04-12-2022 Neutrophils (Bld) [#/Vol] 7.1 10*3/uL 1.8-7.7 [facility] Neutrophils/100 WBC Auto (Bl d)Ordered By: Kel Sparrow on 04-12-2022 Neutrophils/100 WBC (Bld) 66.8 % . [facility] No Panel InformationOrdered By: Kel Sparrow on 04-12-2022 Estimated GFR () > 60 mL/Min [facility] Comment on above: GFR estimated refere nce range: According to KDOQI guidelines, <60 ml/min/1.73m2 is sufficient to diagnose a patient with chronic kidney disease. Pharmacy Creatinine Clearance (Chem 67.08 [facility] Platelet mean volume Auto (B ld) [Entitic vol]Ordered By: Kel Sparrow on 04-12-2022 Platelet mean volume (Bld) [Entitic vol] 8.7 fL 6.6-10.1 [facility] Platelets Auto (Bld) [#/Vol] Ordered By: Kel Sparrow on 04-12-2022 Platelets (Bld) [#/Vol] 226 10*3/uL 150-450 [facility] Protein [Mass/volume] in Ser um or PlasmaOrdered By: Kel Sparrow on 04-12-2022 Protein [Mass/Vol] 5.9 g/dL 6.1-7.9 [facility] RBC Auto (Bld) [#/Vol]Ordere d By: Kel Sparrow on 04-12-2022 RBC (Bld) [#/Vol] 4.18 10*6/uL 3.90-5.60 [facility] Serum or plasma alanine norris otransferase measurement without P-5'-P (enzymatic activiOrdered By: Kel Sparrow on 04-12-2022 ALT No additional P-5'-P [Catalytic activity/Vol] 22 U/L 10-60 [facility] Serum or plasma albumin/glob ulin mass ratioOrdered By: Kel Sparrow on 04-12-2022 Albumin/Globulin [Mass ratio] 1.2 {ratio} [facility] Serum or plasma alkaline malick sphatase measurement (enzymatic activity/volume)Ordered By: Kel Sparrow on 04-12-2022 ALP [Catalytic activity/Vol] 69 U/L 32-92 [facility] Serum or plasma aspartate am inotransferase measurement (enzymatic activity/volume)Ordered By: Kel Sparrow on 04-12-2022 AST [Catalytic activity/Vol] 61 U/L 10-42 [facility] Serum or plasma calcium cain urement (mass/volume)Ordered By: Kel Sparrow on 04-12-2022 Calcium [Mass/Vol] 8.9 mg/dL 8.2-10.2 [facility] Serum or plasma chloride vanessa surement (moles/volume)Ordered By: Kel Sparrow on 04-12-2022 Chloride [Moles/Vol] 103 mmol/L 95-114 [facility] Serum or plasma glucose cain urement (mass/volume)Ordered By: Kel Sparrow on 04-12-2022 Glucose [Mass/Vol] 127 mg/dL 70-100 [facility] Comment on above: ADA recommended refe rence range Random Glucose Reference Range is dependent on time and content of last meal. Glucose of more than 200 mg/dL in a nonstressed, ambulatory subject supports the diagnosis of Diabetes Mellitus. Serum or plasma high density lipoprotein (HDL) cholesterol measurementOrdered By: Selam Noble on 04-12-2022 Cholesterol in HDL [Mass/Vol] 56 mg/dL 29 [facility] Comment on above: HDL CHOL ATP-III CLA SSIFICATION Cardiovascular Risk HDL > or equal to 60 mg/dL LOW HDL < 40 mg/dL HIGH Serum or plasma potassium me asurement (moles/volume)Ordered By: Kel Sparrow on 04-12-2022 Potassium [Moles/Vol] 3.7 mmol/L 3.5-5.1 [facility] Serum or plasma sodium measu rement (moles/volume)Ordered By: Kel Sparrow on 04-12-2022 Sodium [Moles/Vol] 137 mmol/L 136-146 [facility] Serum or plasma total biliru bin measurement (mass/volume)Ordered By: Kel Sparrow on 04-12-2022 Bilirubin [Mass/Vol] 1.0 mg/dL 0.3-1.2 [facility] Serum or plasma total carbon dioxide measurement (moles/volume)Ordered By: Kel Sparrow on 04-12-2022 CO2 [Moles/Vol] 23.8 mmol/L 22.0-30.0 [facility] Serum or plasma total choles terol/high density lipoprotein (HDL) cholesterol mass ratOrdered By: Selam Noble on 04-12-2022 Cholesterol.total/Choles terol in HDL [Mass ratio] 2.1 {ratio} <5.0 [facility] Serum or plasma urea nitroge n measurement (mass/volume)Ordered By: Kel Sparrow on 04-12-2022 Urea nitrogen [Mass/Vol] 11 mg/dL 07-10 [facility] Triglyceride [Mass/volume] i n Serum or PlasmaOrdered By: Selam Noble on 04-12-2022 Triglyceride [Mass/Vol] 43 mg/dL 35-149 [facility] Comment on above: TRIG ATP III [...] aPTT Coag (PPP) [Time] 34.4 s 25.1-36.5 [facility] CARDIAC EMELI 3-6on 2 CK [Catalytic activity/Vol] 84 U/L Normal 39-308 [facility] Comment on above: Performed By: #### C MP, HSTROPN #### [facility] [address] [address] [address] Bal Stallings CK.MB [Mass/Vol] 4.13 ng/mL Critically high <=3.60 [facility] Comment on above: Performed By: #### C MP, HSTROPN #### [facility] [address] [address] [address] Bal Stallings HSTROP 234.8 pg/mL Critically high 4.0-76.1 [facility] Comment on above: Result Comment: CUT- OFF POINTS HAVE BEEN ESTABLISHED BASED ON THE FOURTH UNIVERSAL DEFINITIONS OF MYOCARDIAL INFARCTION. THE UPPER REFERENCE LIMIT (URL) OF TROPONIN, DEFINED THE 99TH PERCENTILE OF cTnI DISTRIBUTION IN A REFERENCE POPULATION, HAS BEEN CONFIRMED THE DECISION THRESHOLD FOR PA DIAGNOSIS. Performed By: #### C MP, HSTROPN #### [facility] [address] [address] [address] Bal Stallings Laboratory - Chemistry and C hemistry - challengeOrdered By: Patsy Smith on 04-11-2022 Natriuretic peptide B (Bld) [Mass/Vol] 79.0 pg/mL 5-100 [facility] Laboratory - Chemistry and C hemistry - challengeOrdered By: Shobha Salmeron on 04-11-2022 Magnesium [Mass/Vol] 2.1 mg/dL 1.6-2.6 [facility] - CoagulationOrde red By: Shobha Salmeron on 04-11-2022 PT Coag (PPP) [Time] 14.0 s 9.0-12.9 [facility] Platelet poor plasma interna tional normalized ratio (INR) by coagulation assay (relatOrdered By: Shobha Salmeron on 04-11-2022 INR Coag (PPP) [Relative time] 1.2 {INR} [facility] Comment on above: INR Therapeutic [...] 04-11-2022 Troponin I.cardiac High sensitivity method [Mass/Vol] 35785 pg/mL 0-20 [facility] Comment on above: Results called at 1027 on 04/11/22 BNPon 04-10-2022 Natriuretic peptide B (Bld) [Mass/Vol] 305.0 pg/mL Normal <=1,800.0 [facility] Comment on above: Performed By: #### C JAZZY, HSTROPN #### [facility] [address] [address] [address] Bal Stallings CARDIAC EMELI 3-6on 2 CK [Catalytic activity/Vol] 91 U/L Normal 39-308 [facility] Comment on above: Performed By: #### C JAZZY, HSTROPN #### [facility] [address] [address] [address] Bal Stallings CK.MB [Mass/Vol] 3.50 ng/mL Normal <=3.60 [facility] Comment on above: Performed By: #### C MP, HSTROPN #### [facility] [address] [address] [address] Bal Stallings HSTROP 191.6 pg/mL Critically high 4.0-76.1 [facility] Comment on above: Result Comment: CUT- OFF POINTS HAVE BEEN ESTABLISHED BASED ON THE FOURTH UNIVERSAL DEFINITIONS OF MYOCARDIAL INFARCTION. THE UPPER REFERENCE LIMIT (URL) OF TROPONIN, DEFINED THE 99TH PERCENTILE OF cTnI DISTRIBUTION IN A REFERENCE POPULATION, HAS BEEN CONFIRMED THE DECISION THRESHOLD FOR PA DIAGNOSIS. Performed By: #### C MP, HSTROPN #### [facility] [address] [place] [address] Dr. Bal Stallings CBC AUTO DIFFon 04-10-2022 BASO # 0.1 103/ul Normal 0.0-0.1 [facility] Comment on above: Performed By: #### C BC #### [facility] [address] [place] [address] Dr. Bal Stallings Basophils/100 WBC (Bld) 0.9 % Normal 0.2-2.0 [facility] Comment on above: Performed By: #### C BC #### [facility] [address] [place] [address] Dr. Bal Stallings EO # 0.3 103/ul Normal 0.0-0.7 [facility] Comment on above: Performed By: #### C BC #### [facility] [address] [place] [address] Dr. Bal Stallings Eosinophils/100 WBC (Bld) 3.5 % Normal 0.9-7.0 [facility] Comment on above: Performed By: #### C BC #### [facility] [address] [place] [address] Dr. Bal Stallings Erythrocyte distribution width (RBC) [Ratio] 13.1 % Normal 11.0-15.0 [facility] Comment on above: Performed By: #### C BC #### [facility] [address] [place] [address] Dr. Bal Stallings Hematocrit (Bld) [Volume fraction] 39.4 % Critically low 42.0-54.0 [facility] Comment on above: Performed By: #### C BC #### [facility] [address] [place] [address] Dr. Bal Stallings Hemoglobin (Bld) [Mass/Vol] 13.5 g/dL Critically low 14.0-18.0 [facility] Comment on above: Performed By: #### C BC #### [facility] [address] [place] [address] Dr. Bal Stallings IG # 0.02 10e3/ul Normal 0.00-0.03 [facility] Comment on above: Performed By: #### C BC #### [facility] [address] [place] [address] Dr. Bal Stallings IG % 0.2 % Normal 0.0-0.5 [facility] Comment on above: Performed By: #### C BC #### [facility] [address] [place] [address] Dr. Bal Stallings LYMPH # 2.8 103/ul Normal 1.2-3.8 [facility] Comment on above: Performed By: #### C BC #### [facility] [address] [place] [address] Dr. Bal Stallings Lymphocytes/100 WBC (Bld) 29.0 % Normal 20.5-60.0 [facility] Comment on above: Performed By: #### C BC #### [facility] [address] [place] [address] Dr. Bal Stallings MANUAL DIFF REQ NO Normal [facility] Comment on above: Performed By: #### C BC #### [facility] [address] [place] [address] Dr. Bal Stallings MCH (RBC) [Entitic mass] 31.7 pg Normal 25.9-34.0 [facility] Comment on above: Performed By: #### C BC #### [facility] [address] [place] [address] Dr. Bal Stallings MCHC (RBC) [Mass/Vol] 34.3 g/dL Normal 29.9-35.2 [facility] Comment on above: Performed By: #### C BC #### [facility] [address] [place] [address] Dr. Bal Stallings MCV (RBC) [Entitic vol] 92.5 fL Normal 80.0-94.0 [facility] Comment on above: Performed By: #### C BC #### [facility] [address] [place] [address] Dr. Bal Stallings MONO # 0.8 103/ul Normal 0.3-0.8 [facility] Comment on above: Performed By: #### C BC #### [facility] [address] [place] [address] Dr. Bal Stallings Monocytes/100 WBC (Bld) 8.1 % Normal 1.7-12.0 [facility] Comment on above: Performed By: #### C BC #### [facility] [address] [place] [address] Dr. Bal Stallings NEUT # 5.6 103/ul Normal 1.4-6.5 [facility] Comment on above: Performed By: #### C BC #### [facility] [address] [place] [address] Dr. Bal Stallings Neutrophils/100 WBC (Bld) 58.3 % Normal 43.0-75.0 [facility] Comment on above: Performed By: #### C BC #### [facility] [address] [place] [address] Dr. Bal Stallings Platelet mean volume (Bld) [Entitic vol] 10.3 fL Normal 9.5-13.5 [facility] Comment on above: Performed By: #### C BC #### [facility] [address] [place] [address] Dr. Bal Stallings PLT 228 103/ul Normal 150-450 [facility] Comment on above: Performed By: #### C BC #### [facility] [address] [place] [address] Dr. Bal Stallings RBC 4.26 106/ul Critically low 4.70-6.10 [facility] Comment on above: Performed By: #### C BC #### [facility] [address] [place] [address] Dr. Bal Stallings WBC 9.6 103/ul Normal 4.0-11.0 [facility] Comment on above: Performed By: #### C BC #### [facility] [address] [place] [address] Dr. Bal Stallings Covid-19 PCR ([facility])on 03-19 SARS-CoV-2 (COVID-19) RNA MERLYN+probe Ql (Unsp spec) Not detected Normal NOT DETECTED [facility] Comment on above: Result Comment: When [...] for this test is supported by the [employer] of Health and Human Service's declaration that [...] Performed By: #### C JAZZY, HSTROPN #### [facility] [address] [place] [address] Dr. Bal Stallings LIPASEon 04-10-2022 Lipase [Catalytic activity/Vol] 62.0 U/L Critically low 73.0-393.0 [facility] Comment on above: Performed By: #### L IPA #### [facility] [address] [place] [address] Dr. Bal Stallings PROF 14(COMP METB)on 022 Albumin [Mass/Vol] 3.6 g/dL Normal 3.4-5.0 [facility] Comment on above: Performed By: #### C JAZZY, HSTROPN #### [facility] [address] [place] [address] Dr. Bal Stallings Albumin/Globulin [Mass ratio] 1.0 {ratio} Normal [facility] Comment on above: Performed By: #### C JAZZY, HSTROPN #### [facility] [address] [place] [address] Dr. Bal Stallings ALP [Catalytic activity/Vol] 88 U/L Normal 46-116 [facility] Comment on above: Performed By: #### C MP, HSTROPN #### [facility] [address] [address] [address] Bal Stallings ALT [Catalytic activity/Vol] 26 U/L Normal 16-63 [facility] Comment on above: Performed By: #### C MP, HSTROPN #### [facility] [address] [address] [address] Bal Stallings Anion gap [Moles/Vol] 12.2 mmol/L Normal [facility] Comment on above: Performed By: #### C MP, HSTROPN #### [facility] [address] [place] [address] Dr. Bal Stallings AST [Catalytic activity/Vol] 17 U/L Normal 15-37 [facility] Comment on above: Performed By: #### C MP, HSTROPN #### [facility] [address] [place] [address] Dr. Bal Stallings Bilirubin [Mass/Vol] 0.6 mg/dL Normal 0.2-1.0 [facility] Comment on above: Performed By: #### C MP, HSTROPN #### [facility] [address] [place] [address] Dr. Bal Stallings Calcium [Mass/Vol] 8.8 mg/dL Normal 8.5-10.1 [facility] Comment on above: Performed By: #### C MP, HSTROPN #### [facility] [address] [place] [address] Dr. Bal Stallings Chloride [Moles/Vol] 103 mmol/L Normal 98-107 [facility] Comment on above: Performed By: #### C MP, HSTROPN #### [facility] [address] [place] [address] Dr. Bal Stallings CO2 [Moles/Vol] 25.1 mmol/L Normal 21.0-32.0 [facility] Comment on above: Performed By: #### C MP, HSTROPN #### [facility] [address] [place] [address] Dr. Bal Stallings Creatinine [Mass/Vol] 1.00 mg/dL Normal 0.70-1.30 [facility] Comment on above: Performed By: #### C JAZZY, HSTROPN #### [facility] [address] [place] [address] Dr. Bal Stallings EGFR-AF MONEGASQUE >60 Normal >=60 [facility] Comment on above: Performed By: #### C MP, HSTROPN #### [facility] [address] [address] [address] Bal Stallings EGFR-NON AF MONEGASQUE >60 Normal >=60 [facility] Comment on above: Performed By: #### C JAZZY, HSTROPN #### [facility] [address] [place] [address] Dr. Bal Stallings Globulin (S) [Mass/Vol] 3.6 g/dL Normal [facility] Comment on above: Performed By: #### C JAZZY, HSTROPN #### [facility] [address] [place] [address] Dr. Bal Stallings Glucose [Mass/Vol] 113 mg/dL Critically high 74-106 [facility] Comment on above: Performed By: #### C JAZZY, HSTROPN #### [facility] [address] [place] [address] Dr. Bal Stallings Potassium [Moles/Vol] 4.3 mmol/L Normal 3.5-5.1 [facility] Comment on above: Performed By: #### C JAZZY, HSTROPN #### [facility] [address] [place] [address] Dr. Bal Stallings Protein [Mass/Vol] 7.2 g/dL Normal 6.4-8.2 [facility] Comment on above: Performed By: #### C JAZZY, HSTROPN #### [facility] [address] [place] [address] Dr. Bal Stallings Sodium [Moles/Vol] 136 mmol/L Normal 136-145 [facility] Comment on above: Performed By: #### C JAZZY, HSTROPN #### [facility] [address] [address] [address] Bal Stallings Urea nitrogen [Mass/Vol] 20.0 mg/dL Critically high 7.0-18 .0 [facility] Comment on above: Performed By: #### C MP, HSTROPN #### [facility] [address] [place] [address] Dr. Bal Stallings Urea nitrogen/Creatinine [Mass ratio] 20.0 mg/mg Normal [facility] Comment on above: Performed By: #### C MP, HSTROPN #### [facility] [address] [place] [address] Dr. Bal Stallings PROTIMEon 04-10-2022 INR Coag (PPP) [Relative time] 1.11 {INR} Normal [facility] Comment on above: Performed By: #### C VDTBH #### [facility] [address] [place] [address] Dr. Bal Stallings INR GUIDELINES SEE BELOW Normal [facility] / [facility] Comment on above: Result Comment: TRISH RED INR: 2.0 - 3.0 CONDITIONS NOT LISTED BELOW 2.5 - 3.5 FOR PROSTHETIC HEART VALVE REPLACEMENT 2.5 - 3.5 RECURRENT THROMBOSIS Performed By: #### C VDTBH #### [facility] [address] [place] [address] Dr. Bal Stallings PT Coag (PPP) [Time] 11.9 s Critically high 9.0-11.6 [facility] Comment on above: Performed By: #### C VDTBH #### [facility] [address] [place] [address] Dr. Bal Stallings PTTon 04-10-2022 aPTT Coag (Bld) [Time] 27.9 s Normal 22.3-36.2 [facility] Comment on above: Performed By: #### C VDTBH #### [facility] [address] [place] [address] Dr. Bal Stallings TROPONIN, HIGH SENSITIVITYon 04-10-2022 HSTROP 134.8 pg/mL Critically high 4.0-76.1 [facility] Comment on above: Result Comment: CUT- OFF POINTS HAVE BEEN ESTABLISHED BASED ON THE FOURTH UNIVERSAL DEFINITIONS OF MYOCARDIAL INFARCTION. THE UPPER REFERENCE LIMIT (URL) OF TROPONIN, DEFINED THE 99TH PERCENTILE OF cTnI DISTRIBUTION IN A REFERENCE POPULATION, HAS BEEN CONFIRMED THE DECISION THRESHOLD FOR PA DIAGNOSIS. repeated Performed By: #### C MP, HSTROPN #### [facility] [id number] Bal Stallings XR CHEST 1 Von [...] by: NAN LYNNE Date: 2022-04-10 17:59 Normal [facility] Patient Correspondenceon Patient Correspondence [id number]# 1.00CD:127 Normal [facility] Covid-19 PCR (CVDTB)on 03-18 SARS-CoV-2 (COVID-19) RNA MERLYN+probe Ql (Unsp spec) Not detected Normal NOT DETECTED [facility] Comment on above: Result Comment: This test is not yet approved or cleared by the [place] FDA. When there are no FDA-approved or cleared tests available, and other criteria are met, FDA can make tests available under an emergency access mechanism called an Emergency Use Authorization (EUA). The EUA for this test is supported by the [place] of Health and Human Service's (HHS's) declaration [...] SARS-CoV-2. Performed By: #### C VDTBH #### [facility] [address] [place] [address] [address] Bal Stallings SYMPTOMATIC COVID-19 ANTIGEN on 04-01-2022 EUA Statement SEE BELOW Normal [facility] Comment on above: Result Comment: This [...] sooner. Performed By: #### C VDTBH #### [facility] [address] [place] [address] [address] Bal Stallings SARS-CoV-2 (COVID-19) RNA MERLYN+probe Ql (Unsp spec) Negative Normal NEGATIVE [facility] Comment on above: Performed By: #### C VDTBH #### [facility] [address] [place] [address] Bal Stallings Office Visit (Cardiology)on 02-20-2022 [...] from primary care physician and vascular/Intervention al section maintainer for further evaluation management of syncope and [...] his initial evaluation appropriately with a 7-day power regulator and an echocardiogram. Patient also underwent a [...] 1 CAP (more content not included)... Normal [facility] Coding Summary.on 02-17-2022 Coding Summary. CD:[id number] G h0bWw+PGhlYWQ+XG1RXCC fT76doBZgbU5GK3xXFV5A VDONEKQYGD4SVK1iiCY0T CvrI7IakoOt ZjlkuRAgZM24EDm9HEG7p XnkINwqfR9ukRXaX0s2Ix SmRF32uH07DBroTNZqHwD 3LjZpbjsgbWFy C9vwNnMcrHDfByb+PHRhY mxlIHdpZHRoPScxMDAlJy XknRiwSR3rAu0sVPDvKTD vbGxhcHNlOiBj x7apPXLrEYxkPH1xjTxoD 6AkxBU5BPWlv9q9Cg56mV I+JPStWSU2zKqlFUull38 0VnLdd8kyDCO2 jWTsAXmhHGB8Y66gn1O6P ZIoQLImYSG9vHR2gK9njL ycwtdkZ2HbkSJmPrU3CKE 0dEYyjR7wcLjd jfqciE2tKev+D10HGQ1OH SHOMT4CWcs1A7AtTujpcO I+XV85BASrAV35wKZvxBN tp2mwoXg1QkUs HTAvRQR4vCegJDaqb7MdD EDxX02trJLxy9H7XVCjgM ejgAElGvUyoEP7aT4oKMn apxcdv3uzzbgq Kbedo8tucu08wB61S56pU YcyMAGoBKL2FMKiGWOcqA epyo6evL3oMq3+CLkne0g wp2vhdKa4LoBg DSHppwFskSizNQX7w7YfF l13M0DocKwpu9GtZxy9xn 55uVXvj9O4xOG3DYppCCD ijQ0gFZnlEfL8 YJFjQgZofL14iGRkVNbkT m0ohSrglRocCB0cWHUqzm wgBYUneU9jUNIfsOHqvZd gXW8sKMMtjbvw r636NlThJXM7FSCliNHdJ 1SamP5iBwSuGUVaLAGwO1 FkfKKfLPrmG942PQetCbZ 2ZFFndaEjA7Wq GDRgpJauUvU3h9G8Wd6Pp 3MxyhfiUSK5EMxkYNT1Ho ObUsHoIaP3M1KpKpz6PIX grYlyKE2xU6He WZEhlbnzadfidBL8RYDfV KNmzG04iDEkGTnlYr3xv2 U9r207CFGoOJPeaU89Hk3 udDogMTBwdCBU bH9aliczg8sifjavWcLeZ OLjZPf2QPk0XOQrzKthJe QaFCG8NwW9IKW9uHDnqF7 mjJvhhovvdQ6p Oyc+K89biA2sSIT5YOU3t sdgNOCwgmWqCT96YR49M0 RyPjwvdGFibGU+PGRpdiB grLhbHJ6oLmNb d0hst2PbZZkzW2LgHZHeW WcvHfi0LLHcVNR7bTS9qH 4aGXHlARcpp6B6mNI6F4X qmsQvye3xf3yg TMKdQVivU87tbXDop6D4O YRpbNX5GJWcpSvgEkSemI 93Oyc+JPHzoWhqt2EpJmn id5osy7efuWb1 LkQaUJNfonBvpSfkYXD7q 8SvDc28B92lBPhmDYWgNO KkJFBrLONeaSnvci8tyR8 wIi8+PGNvbCB3 qKI1uL9eWENtLhI6YNnqS 080KyDtnKMyEtssf9rns0 pnsCu7DjRfJSKpmaGogFg pOHZ1o4MpUy79 I41eDQdnQZAzLAFoRXLmX BNykXfouj5xqF2eAt2+PC 6cx1uuik42xL14tGN+PHR rBUZ2eDszYYis THFxlZ0aSOcdIhQ6OILwI dNaaZ46hIZiGPlbZe1gsW bvgBpfNR4oEESilazcw66 4KgUlc9akUHJs cHOfLWnnDRK3F25zu2H1D XViLGCkOZT4eBB8lP1seI lnbjogbGVmdDsgdmVydGl kSXifXWdcS210 IHRvcDsnPlBhdGllbnQgT nVqKMb8O1RhIsb6XGIabR aeDM4fmPYhGKekXp0cqAr xqRcfGR1nBZGp fvvka769YnYin3rnCTZth MHbVSyxSCD2O69lk6W1GL SkVMPtPIH9oSL0rA8xqRt nbjogbGVmdDsg rjZdkZflJUbkJPveH086N HRvcDsnPkJpcnRoIERhdG B2VA18PM55fHGvd6F6cNC 7Y9VyUFEplnyx tupoiBM5PDAcIPDvzS56N h1bqZpqRq4tUHTuHGP9VV LtzRSlE7CpdA0gKuYfJYW gWYEfU9ItaLEl BHebP144YEipRhZ1CBLst zVuD0NqGCBjbJtwJlN9c3 J6Ts8GQ0B5KJ07RE39bFV hx9E9wKR1J0Wr NQRuzlujvzftdKV0SHOlY DPzfK81Ln3fgHxdKs4sNQ AvLXK0ZEYtvGYyD6XsrB6 yOiAjMDAwMDAw V5KhfBRaPObpQ233AHwrD cF4JBMoroDsW6EmPMLvtT zaVcA3i6J1Hz2XKMn7JQ4 4VO49rPVkw7K3 xXX4I3KrTDKnyaqydhbpc LA0ICQhWNWwtF71Dk1grN kvSx0vYUEyMXZ5LHIldFT lJ3RbyX6lYySv CKUpGZFmP7UxxBJiDUioD 479YVdxAkW6NWXjzzKwJ6 QhBOXejTxhPkH1r7E6Lt6 WILRcKF85TSN6 fWB2NB08KR10E2FzPdvqs GFibGU+PHRhYmxlIHdpZH RoPScxMDAlJyBzdHlsZT0 cYm6aLYByHZEx mZkmqFXdYqNwg9ayCQZrF XhfIQ3xpXjyM6RmaVC3VY Eid8h1Ym04X60jM5IqiBL +JWLprMH3jYM5 vG2oMcBsHxO5ZFtfQ077Z oRkbZWbNmaol8awe5xqxA h7JcI8IMOlphPdkNprBYP 1h3HmXx08T70l IHdpZHRoPSIxNSUiIHZhb Nvnqk9hiQ4qAz9+PGNvbC J1sTH6pP4bOpLtDpU3UXa aA761SkWmaANg Tujxn2sjj3ihoDn0OsEsA HNxihMxxTvtJMN2b1WrWp 30C3EwgMrot9GuLrd2gb6 7zMFmr6U4wZJ8 W3FySJLyagoqxWMjuIygG Y3hYVLkousgVYYusK3yLR QwN6r0NyEtPkQ2XZlnM7E thmU9AZSjgTKr ZTmtISO1A32wo5T9JUTpQ MSkEKC6eGB5iT8uaUtxfr ogbGVmdDsgdmVydGljYWw gUJxeC077PFPw qWlmYICrxA5nTDWpaNUbo GsmVL8kCHCplnqjNqVUP5 zwGJuPSJhCXF1pBhaagBK +HNDzWMS5nOoa FUwkHCCklR0jTOKvT1p4A eOzGnV6FXbgB7RjRWFbwk xdKf23cH9lYkHeDxR5HEo lM3VakxV2TBWa oDZnCVqpOLK3J95ch8C7D FFhQLFaRJT3kVE8tV6hnF lnbjogbGVmdDsgdmVydGl rLCafSGfwO192 XUMpmMzlZcG1LxFhIlE1L vw0H0FwSll8OSQhzZukUX 6svDWkSAvlDg8ekWuqpAf uWH2pZKDltraz ZRDlmY4lWCSpzOSuaIzhP H9yYBWqszrsd820AaLcJE O2KHFawMAmG3JhoY0mFgH iFGByFRWqB1Ad sCFvKXtxQ581ZLfsRyB7C WQkblAnE4EiVROhnNbcIm W1k0E4Un36TQYPZMDxqvd vdGQ+PHRkIHN0 iEypGSwcVPCbtS6wDXJqG 2a2IqFaTiL4LRpsN8HuVI HgftphRw28wV4vKqJgDcI 1JJbeY6ZpvdV3 DPIlaMRzKRirUHY0C13of 4N8BGOcDEKgLXO9cVB7zU 1hbGlnbjogbGVmdDsgdmV ydGljYWwtYWxp W155TFSkjKncOw3myLO2P 1VnJbh3VTYuvQghTA6crQ FdFAslUm7iyTzvhXupQQ7 wNTBpbjtwYWRk wD8oRWQggUWspZetSI9mP QRszjapu174UzEuBQS6WU TtvKEsR6IwyZ1nBoTeCUK mEQKmG8TtkRIn NRvsW133BJuaHmI0LOUoc cTqR6IgSRBxuZuyReU5s5 B8Vp2QVTstND0yojChKE7 djbN8W2KmQvzv dHI+XR33XYQaMV41kZFix QAxk4vuqRv7RsQdGVNfTH H5fGgjUQbuz7SfYAGfC96 dtIQhi0Q4FTQx rNwkbGOuMcKbdIE7aS4cS Xrwrbrmb2qtjjjbCwrem9 tgwu73pT46B55sHGweSYD oPSIzMCUiIHZh mHkqpc3apK8jYy8+PGNvb BF0kDH6hX1lPvXmVnE5CZ maW686CnSbpTXcHwnkj4d il2pwfJn4GgZg QCXnwhWlgBpbDPR0r7YhB t79H51jQOkgHZGzBAYiVI CiOHNavFhjbd6olH9sSf1 +LD5zk3kunm85 kB19vCK+QYQtAOC4jOqlQ VbnNAJhhP7fETbfVpR5GS LtBzPokW99cPTgXFjsDq6 jwGxfaXtbZX3v NNDsnhnfs925NbSbr2fzP WPjbEWtVJmjUZR1G39wr7 O5HNHyQJDkGAU8sUD1fO8 hbGlnbjogbGVm dDsgdmVydGljYWwtYWxpZ 551AFWbcOhlTrZxxXJmU1 oedkDOVQ9uFsijfLK+PHR lZVS1mEbiWHvh ZXDkuF6hUIAsH3f3RxMdK yN1ROagB8OgfzO3UKKiyB PoOWCcjCGKuH0zfoftw8g vcjogIzAwMDAw BEu8FZx5DDYilWfxKrJmN WO6ZcB2UYA3cSCxvZ2peU aupiagyV8gGcj+RklOOjw vdGQ+PHRkIHN0 vXaoVQvbZROvkQ0oBPIiL 9k1AzJbHxJ1AFckL9Ugvt N7GQCfwPLeSMHdqOWAyB6 kebeuh7qwxyiv QzOxBHVhIRw6ZDg7BZLwk XazPvYvTPY4FjK0TVS7qS JyqJ2skOhtdbbzkW9vQso +TVJOOjwvdGQ+ QZAiXKH9iFyrGBrvAIKim X4eBHOwH3r3KpZdWkN2PK akT8LfyxE3UOPzlEBfPRE qbQILgO8lbers x2neraitGnUfEVKgZYt5N Kr3BMGhqVpjVsAhKGR2Xy J5VYX6mVXktT4ylDwzvjw wrQ0vKmp+UGF5 RTY0WN72VT64E9InJzney GFibGU+PHRhYmxlIHdpZH RoPScxMDAlJyBzdHlsZT0 yBz4qWKPdBNCv bGxh (more content not included)... Normal [facility] Consent for Treatmenton 01-17 Consent for Treatment [id number] [facility] [id number]# 1.00CD:127 Normal [facility] Office/Clinic Note-Physician on 02-05-2022 Office/Clinic Note-Physician [id number]# 1.00CD:127 Normal [facility] Patient Correspondenceon Patient Correspondence [id number]# 1.00CD:127 Normal [facility] Patient History Officeon Patient History Office [id number] [id number]# 1.00CD:127 Normal [facility] BASIC METABOLIC PANELon 12-17 Anion gap [Moles/Vol] 15 mmol/L Normal 10 - 20 [facility] Comment on above: Performed By: #### B MP #### [address] [id number] Calcium [Mass/Vol] 9.4 mg/dL Normal 8.6 - 10.3 [facility] Comment on above: Performed By: #### B MP #### [address] [id number] Chloride [Moles/Vol] 106 mmol/L Normal 98 - 107 [facility] Comment on above: Performed By: #### B MP #### [address] [id number] Creatinine [Mass/Vol] 1.01 mg/dL Normal 0.50 - 1.30 [facility] Comment on above: Performed By: #### B MP #### [address] [id number] GFR/1.73 sq M.predicted among non-blacks MDRD (S/P/Bld) [Vol rate/Area] 73 mL/min/{1.73_m2} Normal >90 [facility] Comment on above: Result Comment: CALC ULATIONS OF ESTIMATED GFR ARE PERFORMED USING THE 2020 CKD-EPI STUDY REFIT EQUATION WITHOUT THE RACE VARIABLE FOR THE IDMS-TRACEABLE CREATININE METHODS. https://jasn.asnjournals.org/content/early//ASN.092 5551036 Performed By: #### B MP #### [address] [id number] Glucose [Mass/Vol] 120 mg/dL High 74 - 99 [facility] Comment on above: Performed By: #### B MP #### [address] [id number] HCO3 (Bld) [Moles/Vol] 21 mmol/L Normal 21 - 32 [facility] Comment on above: Performed By: #### B MP #### [address] [id number] Potassium [Moles/Vol] 3.9 mmol/L Normal 3.5 - 5.3 [facility] Comment on above: Performed By: #### B MP #### [address] [id number] Sodium [Moles/Vol] 138 mmol/L Normal 136 - 145 [facility] Comment on above: Performed By: #### B MP #### [address] [id number] Urea nitrogen [Mass/Vol] 17 mg/dL Normal 6 - 23 [facility] Comment on above: Performed By: #### B MP #### [address] [id number] CBCon 01-09-2022 Erythrocyte distribution width (RBC) [Ratio] 13.5 % Normal 11.5 - 14.5 [facility] Comment on above: Performed By: #### C BC #### [address] [id number] Hematocrit (Bld) [Volume fraction] 43.4 % Normal 41.0 - 52.0 [facility] Comment on above: Performed By: #### C BC #### [address] [id number] Hemoglobin (Bld) [Mass/Vol] 14.4 g/dL Normal 13.5 - 17.5 [facility] Comment on above: Performed By: #### C BC #### [address] [id number] MCHC (RBC) [Mass/Vol] 33.2 g/dL Normal 32.0 - 36.0 [facility] Comment on above: Performed By: #### C BC #### [address] [id number] MCV (RBC) [Entitic vol] 94 fL Normal 80 - 100 [facility] Comment on above: Performed By: #### C BC #### [address] [id number] Platelets (Bld) [#/Vol] 222 10*3/uL Normal 150 - 450 [facility] Comment on above: Performed By: #### C BC #### [address] [id number] RBC 4.61 x10E12/L Normal 4.50 - 5.90 [facility] Comment on above: Performed By: #### C BC #### [address] [id number] WBC (Bld) [#/Vol] 9.7 10*3/uL Normal 4.4 - 11.3 [facility] Comment on above: Performed By: #### C BC #### [address] [id number] COAGULATION SCREENon 022 aPTT Coag (Bld) [Time] 29 s Normal 26 - 39 [facility] Comment on above: Result Comment: Note new reference range as of 09/16/2021 at 10:00am. Performed By: #### C OAGS #### [address] [id number] PT Coag (PPP) [Time] 13.3 s Normal 9.8 - 13.4 [facility] Comment on above: Result Comment: Note new reference range as of 09/16/2021 at 10:00am. Performed By: #### C OAGS #### [address] [id number] PT, INR 1.1 Normal 0.9 - 1.1 [facility] Comment on above: Performed By: #### C OAGS #### [address], [place] [id number] Order Reconciliationon 01-09 Order Reconciliation Page 1 [...] tab(s) orally (more content not included)... Normal [facility] Patient Profile - Preop v3on 01-09-2022 Patient Profile - Preop v3 Patient Profile - Preop: Initial Info: Patient DemographicsName: MACARIO ASH Date: 1935 Address: [address] [place] [address] Primary Phone [phone] How to be AddressedBill Spoken Language PreferredEnglish Source of Informationpatient Stated Reason for Admissionablation Primary Contact Name and NumberJohn Nilsa [phone] Medications Brought to [facility] General Health: Weight in kg99.5 kilogram(s) Weight in ybl168.3 pound(s) Weight Methodactual (measured) Scale Typestanding Height in feet5 feet Height in hoqqlx51.94 inch(es) Height in cm180.1 centimeter(s) Height Methodstated BMI (kg/m2)30.675 square meter Patient or Family Member Reaction to Anesthesiano previous reaction Blood Avoidance/Restriction snone Previous Transfusion Reactionnot applicable Health Mgmt: Symptoms/Conditions Managed at Homecardiovascular; musculoskeletal Cardiovascular Symptoms/Conditionsdy srhythmia; hypertension Musculoskeletal Symptoms/Conditionsba ck pain Barriers to Managing Healthnone Relationship/Environ: Lives Withspouse Living Arrangementshouse Resource/Environmenta l Concernsnone [facility] [place] [facility] Anticipated at Transitionnone Tobacco Use: Tobacco Useno Pre-op Checklist: Arrival [id number] Arrival Time05:09 Procedure Typeablation NPOyes Last Food [id number] 18:00 ID Band On Patientpatient ID (name), [...] Updated: 09-Jan-2022 06:09 by Dasia Mcfarlane) Normal [facility] Coding Summary.on 01-08-2022 Coding Summary. [id number] G h0bWw+PGhlYWQ+OL4WBIO fA32prRUbwJ6KJ7bIZK8S SJEPTPFMCX6THK3ljVF7T UcmC5SpadJj HqaxtYWlYE24YBd3EOZ9f WxlATmnpU6qkJHkE0l9Ax DmDK37eF21JIxuIOIoSqG 3LjZpbjsgbWFy J0fvVnDnsGPwUgz+PHRhY mxlIHdpZHRoPScxMDAlJy SpsJzqGS0uSb4cUKInKLB vbGxhcHNlOiBj x1prTNIxSKzuOH0boHntX 7IllOO3PFQqb5e9Qf86fJ I+KNGfRMC3kQgwHWjci28 9VoRcc4uoEGX9 jMYiKNvbVUL6R43nx2N8L AUrXKXdWIM3iHI6cT5caP zzuoroE3CqsZHjNsT0ECN 4rBYbpY1hyKcg fmbevT7oYsf+T02KRJ3WG DYDAX0CJpi2N4VtAmnueD I+UQ85RZKeCL69kUWnjOY tx3msjHn4SdDp SSOrWXW7qUgkLUdps3BwL QBdX46btOKhl5P6RKSkjR qloNDrFvFooSG0yJ5gXZy lledlk8jnbkws Kbhux6aetr97hS76Q94fT OrmHWSoGSZ2NHMqRIQabW wrmi3qqL3gCr5+ZUwde4i yf3btlJe1ZdQz POMzdtHmgNokOAY1e2FlF e02S0HcfWxdv4CkDao3af 00pVGqy7U1yBF3TKxdHXM jxX3eMMjcOoV1 CKIbOoCprR39sMRsTNejI l6axVnzkGyaXT8rPRBigf fvQAZwnX0sYINskHVeyXa sPM4pUCEdlill j761CgWvZVA2RMSbqZKpS 9VvwU4fWuBlQTCdIOLsF6 XnzREbXMmtJ107FQnpHxB 4JNUamhJaR7Da YXYlvFivZfB0p9B4Jv8Os 3TukyoaNWU1TZvoHKUbMk C8BjPfYyR6P8NmJre6YGB qeVmdVB2mU6In DXMawalenicetBG9HLYpK XDusY13vXSfGThzSa6xt3 I5i117PMOpOGOeuZ72Yy8 udDogMTBwdCBU mQ4ezalxa0cejpxjReStZ EFlHXl8LZi8SDJygLezZi UnBCV6BsQ9VII6eMSmwF6 gyMeahoxrpZ7i Oyc+L55qxD8nNTA7JNI4q yhdJWXhwvRcRU23KJ93O4 RyPjwvdGFibGU+PGRpdiB okNxrHC1cJpNp h8ewh2YrOSkxK0RvVHCuJ OrmFwk5CQWrHEI3oAS4rC 7uLVXtYDqvb3I2rBA7R2N ochVscx4yk2md JBYhLKlpX36fcMYgr8K1I GGttSS5VABuuVhdZmNgqR 93Oyc+YWLsrPiej4IuHml aj9ftw2tbgUb2 WjOqSIQotwWqpIitNOV7p 7XlVf77P31kIYpuVCMmNF HsWOQaWYHgeQqgaf3luQ9 wIi8+PGNvbCB3 zSO5aL7fQUEuOdX1BMeoP 978MzEjzUHiLgypx2woi1 jrkVc5OyZmWRGpybKftVc eOVR6e0StMh78 D55gAMhiBTVgOSOnBAZmH WZibVgplj8weC2rUh3+PC 9iq6aamg47oW69eZF+PHR rMMK7pTdhVLmd ESDjoE3jHVggGqE0TTBpW oTmiX30iYFzVJocDd3wpP abzKmbIK1cBMRvyowkz01 5MvEdq9scMJHp nYEoSMvqEBC4U13jk7I3H TYsJQFbMJI5sAZ2yD3wrQ lnbjogbGVmdDsgdmVydGl zYLvyZKhlS280 IHRvcDsnPlBhdGllbnQgT yQoUKj3X7MbRcc1DMRwhU kzYS7bhEDbCIrhWi2ahUp hbZbmNL2gUGGi kxzhk415JqUtw5ivAOYpd IHjWDwcWZL6V46ac1J3NN NfNURwTWW3hEZ6nD0ceSe nbjogbGVmdDsg zcGuhWpnONsgQEshV670X HRvcDsnPkJpcnRoIERhdG O3ZM26RO55aIKtx1P7vVH 7G9LeBOMnwyqf jsuihZF8PQEtKGDzvL04J l1wdLyoOm4hWTQvFCQ6KQ FwdOCyZ0FtaW1tUrLsCQU bZAEmJ6NniIKi EKviQ574DKfhXzM5TSIpi kBnZ5LwALVqpKgmAiV4k4 N5Ed2PA5U1RE04QF76dHI ek6U3wOJ5P4Ko AAKzxerpywqanUZ0FSIcX LOhcH10Hp2agVpePr6gMV AbIAP1MJMsrPQqP1IrdI7 yOiAjMDAwMDAw Q1LamDNyDFmaJ384FGprF kX9CXPizxAlC9UfGCSbvP okOyY9j7P0Wz7QRAq2VP3 1FH62jZPqj5B7 kVU9L2SwOOKojlvgzzifl BE0WKQoFLNaeO64Es1htD ddPl7sPSAzLBY5HMUdyRM lQ8MjtC8wZeNv JRLbKHTiY9AxtIUnAFhvW 054JGzoBxJ6EZSulkYbN8 QrWPIcjWccAtX1j0W5Bv6 LPJNiRJ35OWR9 cEO6YQ98II45R2JcHsbyy GFibGU+PHRhYmxlIHdpZH RoPScxMDAlJyBzdHlsZT0 aXr5dXBCgMIUg pCjqhVRxFkSpc9tbMVAuM YhlLC3msYwwL7BcxEQ6QZ Htb4u0My96Z95iJ1WwaYU +BTSgnTG9xZL6 cA7rWnUsTzZ5UItkJ256X mPjvOYiOllxa2tqd2yymI k1ZuY3SZGmnuRxsVuhIOC 9w5YrTb71P67m IHdpZHRoPSIxNSUiIHZhb Zkfba6ojT4bCg1+PGNvbC V1yDR4sB5uYbHmGxP7DAj kN080BqUxpRNu Qzqdp6gib1brwYz7MuSnA AMrezXpxWeaZVB0j4VeSu 42T3UtzQwqd8TnWhc7cm7 6iKXsw3U3nPE7 L8TuPWEwxmvnuZDctEvtB D8dDUGjroqwNGZaxF9iEA IdM1f5YfMmHbN1IChgJ9H pmrA8ZEVcuLTb SGmtRGB2R07eg4H3WQPsQ CFfKWD6oHU8dY6dnEnndt ogbGVmdDsgdmVydGljYWw lOHgaT165ERHx aQdcSFZypB2lQMKwwVZpb SypXV9vAWIvfjsqEnNHK1 sjPKzPAVlQNN7kNfgtrMZ +WNIbNAN3dLoc BTclLBHpmD8pTJZmY6c4K wMlNrB0ROooP6PtQJDiiy wcLs93lV1qWcNyMhT3KBa dM4FqzhR7BXAx bQBlGUgxVLJ0E47zq6D9C DBzJEKdVKF4aQS2wP7otC lnbjogbGVmdDsgdmVydGl wHOpvPAbdE124 DULyjGilGdY6VnMdFiR2D ef6A6WcPbe4ANLkrUeiVD 3gvCEmXPkqOx0fwKmhkKv pAU4aUVJxecdo HBIlaB7aUCGbxPRwmUulD M1tUXOlypulh762KsZwZD J6HSLxzIRjJ2QhcD5gQnE jORYtZIOfM4Nd yPYmRCrmI449CZjcAqG6O JCemmYoN2IkAIDysUurKb G9t9V0Pc86PSLCRPNgsqg vdGQ+PHRkIHN0 zYyeEIjaJBDjcX9gJVDjT 7m6EbXmBkI5YObsM7KuHU DnzcxrUi93mD5yByPfAoV 5FIxqR4UsnkU0 NADogSOvBMwhQNT6Z10ov 6X2DUBlKPLeDUW4gHG1uT 1hbGlnbjogbGVmdDsgdmV ydGljYWwtYWxp T403JMHhjMshKt2umLV6P 5JpNks9GFPwyFgkFF2fcJ HlPXarDt6lwSrxnRxmTF7 wNTBpbjtwYWRk fB9fUIOnfDIcmMycAO5jU WMkjnolq250VvSiXVQ9QJ NgbASwB0QrnV2aIdEgEPY sGNUpX7FcuRRd HPdfC692YToeByU0BFKgp qLlH9NyPSVogKiqXrL4x4 C4Nm5DEQhiSD7ypaVtQZ9 vtcZ6T3NkRfsy dHI+YA31OZPtVP01pSSuw CXdd3hahUc8PnCaFVTpAW U1nYfkLQtsl5CcYVNjX31 npUYro5S3RAZy aEgyaEJgNyOcpWB5gL7lP Eihwcbgn9byhahsQzvxu1 cxty39iG47H14cUKzlOWS oPSIzMCUiIHZh gPkpue8xzS1lMy7+PGNvb LB8pYX8kR9hIsYsUiD2PI byC948QsQaiQCyRuuyo4j ii0xxbPv2FrEd TUQdlaWrgWpjCOZ2j4HoN i85U19cPTzxZIKnKGCnYT AxXPIwmMrnke4pdC8dDw4 +OF8yu4clcc93 hM70mGP+HYBmXAJ7jMbpG GnbWKUeuT9mJQxwQrB2VP RvFoYjyP36dKXdPRocIr9 aeXvcaSdpFX1b PMIbibrbb930RsDmy2geG SLrzKKlHZenWBZ3G10zl8 T2BQLlURUvXPF5cSP4vS0 hbGlnbjogbGVm dDsgdmVydGljYWwtYWxpZ 996YOMiqMzmEzNykSFtP7 lfoxQBNN3vRnwgrKG+PHR oGYL2eAjfCOnu FDPlpJ9qRQSyH5p4IxUyH yT9TAhbP3GobnO0HCXdzD ZqCUQxtVPOsH8sgtily8u vcjogIzAwMDAw UZl7TNa3JNOfxYiwXhDlS WR8MzW8QBW4jQTkkO6nsO htfkjiaH1mCug+RklOOjw vdGQ+PHRkIHN0 tWokSWceMQQetF3fHYVyB 5h6InZrRvY2SXxpQ8Hsvb U7GMZlfOVnXRNsvZNDdL1 ozdrzm3sbyqrc QaDpESVfUUf9NFu6WYBgb CyxNqPuWVW4DgQ3SGT6hY TgaC1xjWijqgkfeW8pRzz +TVJOOjwvdGQ+ OZUgMXW8aKzhSDfpEJJag M1yFDUeA5z7IyGaJoK5UB jxY3NvkjZ0QQUtcFDwBAE pgQOPwC8soyri p9hnywlyXeEjDVXdIYp7W Ao4ROWvoGkqUjQhUMB5Qr Z5DCL9cNTypL3mqDhyzow vrN9cKck+UGF5 FLW6FM48XL33X7QuOjqsn GFibGU+PHRhYmxlIHdpZH RoPScxMDAlJyBzdHlsZT0 qXb3vLKMrNIFt bGxh (more content not included)... Normal [facility] Consent for Procedure/Surger yon 01-07-2022 Consent for Procedure/Surgery [id number]#1 .00CD:127 Normal [facility] Consent for Treatmenton 12-17 Consent for Treatment [id number]# 1.00CD:127 [facility] Discharge Instructionson Discharge Instructions [id number]#1 .00CD:127 [facility] IntraOperative Documentson 0 01-07-2022 IntraOperative Documents [id number]#1 .00CD:127 Normal [facility] IntraOperative Documents [id number]#1 .00CD:127 Normal [facility] Main OR Intraoperative Recor don 01-07-2022 Main OR Intraoperative Record IntraOp Document Type FTPM Summary Primary Physician: Bayron Rodriguez MD Finalized Date/Time: 01/07/22 14:50:10 Pt. Name: MACARIO ASH Main Young/Sex: 1935 Male Med Rec #: [id number] Physician: Bayron Rodriguez MD Financial #: [id number] Pt. Type: P Room/Bed: / Admit/Disch: 01/07/22 [...] Performed Surgeon - Primary Scrub - Primary Laboratory Immunologist - Primary Time In 01/07/22 14:39:00 01/07/22 14:39:00 01/07/22 14:39:00 Time Out 01/07/22 14:50:00 01/07/22 14:50:00 01/07/22 14:50:00 Procedure LUMBAR EPIDURAL STEROID LUMBAR EPIDURAL STEROID LUMBAR EPIDURAL STEROID INJECTION(.) INJECTION(.) INJECTION(.) Comments Last Modified By: Anna Garcia RN 01/07/22 Anna Garcia RN 01/07/22 Anna Garcia RN 01/07/22 14:50:04 14:50:04 14:50:04 Entry 4 Case Attendee Yasmeen Staton Role Performed Materials Handling Equipment Operator Time In 01/07/22 14:39:00 Time Out 01/07/22 [...] Anna Garcia RN, Myers Given Participants RN, Jennifer Henning MD, Brionna Verma Amy Time Out Complete 01/07/22 [...] and tissue Entry 1 Skin Integrity Intact, [place], Warm, and Skin Abnormality No Dry Outcomes [...] to positioning (more content not included)... Normal [facility] Main OR Preoperative Recordo n 01-07-2022 Main OR Preoperative Record Holding Area Document Type FTPM Summary Primary Physician: Bayron Rodriguez MD Finalized Date/Time: 01/07/22 13:50:24 Pt. Name: NILSAMACARIO/Sex: 1935 Male Med Rec #: [id number] Physician: Bayron Rodriguez MD Financial #: [id number] Pt. Type: P Room/Bed: / Admit/Disch: 01/07/22 [...] By: Paris Schilling RN 01/07/22 13:50 Normal [facility] Operative Reporton Operative Report SURGERY DATE: [...] in good condition. Sloane Carreon Dictated: 01/07/2022 [id number] Transcribed: 01/07/2022 [facility] Comment on above: Result Comment: Elec tronically Signed By: Jennifer GAUTAM, Bayron\.br\Date and Time Signed: 01/07/22 16:31 EDT Coding Summary.on 01-05-2022 Coding Summary. CD:[id number] G h0bWw+PGhlYWQ+CL0DTIE kD82odRShwY8ER2dMHY1O QOCAFIMMRA6WOS4guYW6H AeqR3GopgKv NdpyvQGcIE20YPd8AKO7o JftHPaqsK4qeEBtD4d0Sl ZqBK98rW26GMrcTCRuZwK 3LjZpbjsgbWFy P0fhDtYsrDGbLwm+PHRhY mxlIHdpZHRoPScxMDAlJy NsxJmbMA6pLc4cZOAxLNF vbGxhcHNlOiBj q1oxHBSjARjhYD6vdVuxF 7PdbJY6FRPqo6o9Ms73zV I+CMLnEWK5cXjdESorj24 0RrVmh8auSJQ2 dRZbIXeaYOL6D06gh8M5U WCtKWVtFRI0vZG4kD1eiU kpjjyyA2JhwZFnXgP5ZWU 2xXDlfA9cuQys eokjyS9nJah+M31RSZ8GD NERXR5WTyh5H8PeHymxyV I+ZX14KUExHT11zSTczTR bv0qscRs1GaOp GUOkRPX9eVfsGPnwd7LgM JGpL87gfLFev6U9QHPduN jkfOBiAuQeiMV0iJ6hUWu fstmnm6bpgphp Phwwt5gphh24cT15Z04bX FhcEOMcEOZ9MIVbZQGedO zezt7fzA0fGf1+FIxgs0z uq6sagDo2RmTy PGFellOmsSmsDGO9e2IiJ r23Q3NfnVixe2GpEjb9uu 43eXBnh3R9aGF6ZUhgUHG jvI5zTMtoAcK9 MMDvOiHowE73tNHdTMnmK t3egOrtwUhdLG3lABAsoe iaXFOxfW3nLQSjaQPfgZe bWA0bGDKytrjb g501CmCaORJ7HELraKVyT 1WicM5kAiPcVCAuRJImD4 OrxMKnFPxvO875UIdoLdY 6NXXcyjFhZ5Gq QGDbcCsgDaK7a0S4Vt8Jt 4UbyzizZYG1RConRUWaFe KaMaHlYnL3X8VxEde0PRI oiWkyOB0hZ7Pp DHLjbxvzxubgrWV9QSXeS LFmlS93nRXdEImuIh5ja8 S1t074NDJzIQVwmJ60Al6 udDogMTBwdCBU sH3zjrtyn1vbyyiyLbVxX OWhPXe1EVn3EFKypEswVe WxGFI5FfF9SLI6dJSwsM9 edLcuaecsmT1h Oyc+Q28vsR6bJEN4ROV2h ollEFDtdsHuUW76TD03V9 RyPjwvdGFibGU+PGRpdiB wbXlxFD7zXhEz c6klj2TnGGohK5DsLKUjP JnuEvk9KQQiHBG3rHQ9kW 9sAYSdVZxqf5M7tEK9D4D smrRjad3ph9vi OPAfPFeqQ67muPWip5R9F XAqtUX9DNWdjBibYeBblX 93Oyc+HFSthHovu4UbUfh lh2zax4qdeFj6 AuNyDULvktDxqXrgEWB4c 3VwQl45U09xFRqdLXSaGQ CuVOWrOSNjiMnqjk2xeF6 wIi8+PGNvbCB3 xCB8uA6iFMUaDpM2PMreB 361KgMcrBOjOjgvg4lcp0 rphZt4KnToHKRtmiZwyXc vFAI4m6PdHa27 P07lCPatVCSfTFYuDLOtH RUeaKhyye0thT8yHc2+PC 8gr4oqiq90fN27sJE+PHR qZXB3vAuePFex RMTvdY1oWMrbIjP0KVCbU bRwqF58jHScTCxdYk8fxD rhaIeqOL0xIZKgztjco07 0HxEdp0flZTHm mHZeUAkuMWC3F27da5L3Y VUgVAYuLIQ1qYE5zZ2neU lnbjogbGVmdDsgdmVydGl uJUtxUThzD470 IHRvcDsnPlBhdGllbnQgT mUpJLd4H4BpZrs2JVPcuQ ltOI3nyQNbVNcnOh2nsJc wkGitNJ1bTDNp ogjiz426CpUiz8ttDTLmk APhVIetRUY2L38op8R6HZ EcEBNySZO7qLF0aP8coNi nbjogbGVmdDsg xpMspDtkXOttADzoQ407F HRvcDsnPkJpcnRoIERhdG S8XJ76WK71zIBrc1O0zSW 8K6SdLFMpmelp xkjqiEJ2YXAcBQEkuW09U g8zbQrwVf6wQHOxOSM5JI ZmlHMjM2FenE7mFpNnUBA xQSXjI9XuvONd BCtrC407MUntSbG6TJRnt oDtV9MmPKXxvAnwYuP3z7 K6Ex3II9K8QM23WS96iAO hp6B2dXP2S0Ur ZGDaqmuiumltdDV8EHXgR TFuvM75Ss1eySfkBg2mLS FbTZA3TKWwmGLpC9DqeL2 yOiAjMDAwMDAw U4GepBYvEJekE369MHqcR wG4ULEhhaRvF6MlJRYggV ofNiB7w4K4Xb3RKIp9OH7 4KJ61dPMdg8C2 uNY9P9YtWREssgtidykas VK9KHZkGFGbuK55Ed3yqM beHk8lTLKmVWD9QOSrxFG eX9NfpE2nVnEf PWQlHXNlK4OcsJObHZnoV 474AFayLfV6ONNwgzFpV0 ZuRBHtgDcrIbG2e2A2Fr5 MIONmNP73UND9 rFU0FP31BI36K7AtEtnpx GFibGU+PHRhYmxlIHdpZH RoPScxMDAlJyBzdHlsZT0 iCa7mFPGnVUYa bDezsZKlYoCab4eyCGNiD PiyQQ9ntXooI9KlbZK0ZD Zos8r7Bh65Y91jG6WglKE +CGYguCI1wAX6 cB2wZtWbNtD8FUeaM849U oBsqJYdClqmw5ooe7cxsM q8IuS3QZEnwbMlcZkkCQN 4s4QzUk94D85h IHdpZHRoPSIxNSUiIHZhb Edewt5rqV6jWa4+PGNvbC F1jIW0iR6tPwAmXwP1BDg eG381OlRfjQJx Qucli5atb4tueTe4QxFcB FTbozXrxCdgZYM5r7FzEz 95K6MbfUpzm9WzFcv4hk1 0vPGqb4Y0vYM9 X6TbKMQsylsbiUUilOhpL I5lSTZxhecnKWJpbO5cFA GrX5q6JsSgJsU6LZwzY6Y stdP5WJDgdCHo HJciIEK8Y14wh3V5DLJuE VAqLTL4lXP7zS9ivInabg ogbGVmdDsgdmVydGljYWw yOCawZ315NPBj iWimESAkdV3bNYQkhVNmy KarHZ2vFFUgpedwRnDFL5 ecFXfHDLnHJI9rPbwjbYQ +MHNhVJX7dKtw UHemBOOibC8bILRtW0j4X bBcPeW2NTphK1NnWIXjpb vgBj22uA3mApMbYiS9KZs jF4QyggZ1TMKg gGUbXOnzRNV7W26wj3V3Z XYdKOPyOFI0qPG4zG0vqH lnbjogbGVmdDsgdmVydGl uBCitEYssQ277 RADxaNxrFmK6DeWqQfG1I ti0O7JxFyd6PAEgaPxeXC 4bqJPuPItyIc3ldWzwzJi oNB6bJIAtmoeb JUHoxL0sZGQtkESncTmwC B9qMOFlwjrbd686AlQoUG E4YWJvlVEkW0KcaV4zTaY gHKShXCJaR0Xj fFFvEQfrG554QXgzWwW6N WOvbvJpF8RgRVZcoNpwSo N6u8H7Fc97XUUDWUAfdqq vdGQ+PHRkIHN0 rIxvMGqkNFTwmU2vZGMvC 1n1QfOtFkP2ZGuyC9AtPN HulrghTf64rO9wGrIeVdJ 9FRsbD6QdpjX6 MOIspVYhTKfhGGB5B42dw 4E8QEIlWCFpXAH5qUT6bF 1hbGlnbjogbGVmdDsgdmV ydGljYWwtYWxp N139VABxjBbdRv4akKG7M 1PxErm2ULBsfAdxIW6daR QoFFmgVn6qpUrrpHlzHZ4 wNTBpbjtwYWRk mI2kBZSjjFMbmGbeEZ9dV KZkdueav106CzZcWOB2KE NnpNYxV2BsrL5lOdKqUHJ jACQaD5LsvJYg YNekL486MJeeFbQ6VUSal sLqY5EcXKBduYypPcO9f2 U0Jq5VBAfvKB1bsjPwWJ6 ziwO7O1XiHsqu dHI+FL28YBLsQG40iXAts FJcw4kzkAi3DqLvWMHdCE M7wGglJNhfi4XfZLQjZ45 gtJKfj8U3OLSj aMnnhPHtQpIheZB6mN1rC Sxpprbtv6eddpmlJvizf9 uzex99sX17M86dACuyWWL oPSIzMCUiIHZh pObiro6owM5eJg1+PGNvb AJ0oBH0kW7hWgTfLwA8DX eaB002SfAaeCUkAmzqy3h xm1vucOm0BlLf EBIusdNcwYohQCC0g2NgL o96I81oKHmiPMWoGMJlRT CbAEMrcQrhhq4tqS8pFi3 +LN8br6xdtw78 fU96tJN+IRSlNNU5dLavM NggAPYdrO3cFFrsUhN1NM ViDaAcnE37gDJjPBwiRz1 caVkfsLvnNW1l NZRbzbvjp956YaQrn1wzZ WDvqBWvWVypALD4S84gm0 E8UJUpSNRlGJC6gLA2cW7 hbGlnbjogbGVm dDsgdmVydGljYWwtYWxpZ 366IWMqwQdgSyKwpIIeW5 nsibBSSX6sFvhmjWQ+PHR tUNX8vMxaEWel SQKfdK2bQOKzA0j3RhLwW fB8VQbuW5DwcnI1QQEbeT NlZGQauYRXiQ9ehxvqj9l vcjogIzAwMDAw KOb5HYk4EJVooGpaOtOeX CI9PeQ7JLG0jJIpvJ9smS xroukcbK5fMur+RklOOjw vdGQ+PHRkIHN0 xGdwPMstMUMvyG5nFIZhD 5y0OgPvMbA7IAdrI9Oawm R0MGEmhMWkUNHecUHTsC2 xetpki0nhhxxs RiIyNLGfTUx8RRs1BNBaw TxjBxWbCFQ6CbN3HFY0nA XnlZ3lrCdybbizaU6xLls +TVJOOjwvdGQ+ AHTzQUL4bIbmBWgzWRGqw M5rZNHaU9r7QxUcHmF1FU tzP4TjrsN6WDQhsVVhFZH uoYIQoQ4oqijo l3hpwrdcLyOgGQBhHXr6W Vd1RJFqzZvsPoIaMMX8Ip Z7RGB6vSPaxL9szHzezyj tgJ3iVdb+UGF5 HMQ1XW16PP74Z6EsFobms GFibGU+PHRhYmxlIHdpZH RoPScxMDAlJyBzdHlsZT0 jRr7sVKRyUNHj bGxh (more content not included)... Normal [facility] Coding Summary.on 12-30-2021 Coding Summary. CD:[id number]:[id number] G h0bWw+PGhlYWQ+RU4WFND fL00bmODllA3LU4hCQB4O SUGJFIVILQ0VJL2muRR7B QvkB5SucmAs FcexkMRoXP90JNt2SEK3q BcuNLsvgF6pkOQiW3c7Il PyLL05oP17KWyaXXHdOwD 3LjZpbjsgbWFy G0huEfErsEUaIro+PHRhY mxlIHdpZHRoPScxMDAlJy HngUupWX1gDq4sFEVtUIJ vbGxhcHNlOiBj o2jgGABhENfkZP5vpAumT 7HjwUO2MUKql2p4Pc80vQ I+AWXxAMP0rAeoZDnel44 1FaLmg9glXGQ5 vGTfCSdtVOU0L05wu4Q7T CMeUUPsTAZ7wTT8qW6leS pjxpmrL8QiaROcTtZ0KGW 6jELkfK5uaRac nufsbS5pPsu+K01HYA6XT SGJQZ3NUml4O7OhPpqnyH I+ES92WQQpJY83uZGwhHQ ot1oizCl4KgHk FWHzRWO6tKtqYIfxi1YqM OYiH56amSZpk7F0ZUMidP lzxXKaKvZvxMU2fA6hZOw knncwx2ekwycc Oyxef3dcwz90vT09X53fR EaiCIPoRKM8XPGhEHQnbP yabq7mtR7mBc7+ZIkqq3u qw2hwbQw9EeQw TMEobeMpzIkzQLU2c0LmE i94Y2KzdAqqu3YrFre5xi 23xJSag5R6aZK9UMbqVPO daI1uIYgfOpX8 AYLyDyXrlX56lGVnVGbgV r6usVpdeQnrIZ3aNYTecv pxZNSmwG9vQDTthAVnyBg mKO0lORAijcuw q097NzZuSTP8NCShxHFfO 6NboS3pEuJhSCBlRXMxK1 NpuLLpYEwrI686VSsyLiO 0ODTsjzMtH1Gd SRIigEzvNhI6a7A1Gh6Ij 8OdhpgpSSA6EPgoCPQtTg E6IgPjFdY5S2PrHyf0KGN dnZdoPZ4tV1Jp TUYyjpgcqedotSI5JZElE ZShqD72qFFgTYogMu9yt2 E1n193EYYqSYTkcI76Ch5 udDogMTBwdCBU pU8bezavw6ygrjbuEcKvS QHiVBv7QXd0PAToxIkzHj XfBDJ0KlF9JQC4uARaeY5 ktTxfveukmF2d Oyc+X00xtQ2xJTH0DXQ1h pkiQQSxoiDmET42XF83Y9 RyPjwvdGFibGU+PGRpdiB pqFeqTC6eJwHq m4jcw4KdNBuxC1ZsDBCsL UepFdl8BNNuQBD3nDG6rI 0vJWKwQEwwh7Z4eXL7J0T jhcBfvu4dk8qt EJYhHIrkJ47eqIOer0D5X NWhhWQ5UGEmbDanWzUweK 93Oyc+OIAerXfoh2LzQaq uk4ang3gboZf3 CfUtBIKapqHjyGdaKSN4r 1OhCm38B25vQWmuYFDwLI UhDHFqBVEelWykns9kiL0 wIi8+PGNvbCB3 xXU4qG0nVWLcHjB8DHhsK 790OpEdcCOyKksvk0pvw4 etqCl3FyYpAFDtcuSeuBb qIWV5n7AnDp50 F72zXHplAHVvMDLhJKFyZ YMpsNrfzh9iwA0gJe0+PC 0kw8jvmm96oC44qHZ+PHR jCPR4lOkbDFly ISIyhV4yLTpsYpO5XUOkJ nBqsG11cKKbTXmeAa3yyB wzvSlxHU2hGZEjnvtka57 0MsFsq5dkMWWv cJPiPCzxAGP9R63wy1E3B BXbXZZvXEN5fRS3sR3tgO lnbjogbGVmdDsgdmVydGl nEDjxLVicC825 IHRvcDsnPlBhdGllbnQgT fIxICv8H7PtHvi3SNGgbJ rsLG1oaAUgSOlcPa2ejNa irXmdPV2cTSTx wjdom525GiSge2ejLNUvu REgKViaQHJ6L79wh3U5NS DaFPVhTIP2gUH1sP5fvAz nbjogbGVmdDsg kjWgtJrmWIaePYajR612U HRvcDsnPkJpcnRoIERhdG D4EP71BB29uCYqd3Z4qBO 0L5PrYVKhhgra nfbjxNM1LBIjRAApsF58R g5iuBmnXh6cMEClXKY1IK WwpDAjN4EulX8zVaRtUDF gIFLnW9XvfSLk OGuaQ280GGuuUzO9BMAkb nIdM4YlWEBjuItqWjF9j7 K0Ld5XM6F3WL11GO02hPT aj0O7cMD7E7Jo NCJvnhltaoeoaSA6MIVoH ARztV26Gj9ucLjmEy3wQA UyDHW3QCFylHHsM7PrnN5 yOiAjMDAwMDAw C9GltWYnNCjlQ945FTqcB jZ9CIVmmpPhN0MnPARmfY plWkM0l7V7Oe8DRIx4GK9 7NY11bPGwj2A8 fLK9J5RuNRJsvgzoxmsct GO3GGRnXNTrsR95Wr3qvB yjBu2sVYDbUTR9BCSbmBP hQ5ZsvE0cTmQt WRIuTUAqB0DdvSUaQYkcI 133GRwjRsL4FAVzxkUaH5 SmOOVzzBuqTgA0s3F7Fe7 LAARcJQ56EWO0 tSU8IF99CT20F2MwJtqge GFibGU+PHRhYmxlIHdpZH RoPScxMDAlJyBzdHlsZT0 pVw4nWKKiSXKu cPceqBVnItIml9apFGRcA IqcMY5stYblQ2ZhzWL0LA Uqq1z7Ot62J95xI2EkoUG +LBKawFA8qAL3 iT3kOeIfCxX7ILmsA208V cOpjGWnDyusg6qmr7fcfU r1XlL8DLUdzgGduCyaWYA 4r6FjAe16W24u IHdpZHRoPSIxNSUiIHZhb Rdwhs7ocS2kNx8+PGNvbC Y8uZJ6uI0hFeShOiE5BNq tD489AiCzsSIm Dpgjx1hjn8yyjKb9FuGeA UCoccUinNhcNTE8q7JpDk 96Y4JpdEjpb2UkHbe3xe5 6uLXdl8D8lBE0 A8QaMSQvzdvkyFJhmRscM G2gTUDsuezcJLZptQ7kRN OgQ3a0SaGbSvX3QOziJ6V ephG3JKStfBKf KDxpUTQ4O48ov8Y6PFTgL RJjJCV7wAA0rV4exYtzbz ogbGVmdDsgdmVydGljYWw qZUzxZ841ZFCf yFwxLDPqjJ4uUXSjtDUow PbpUU3fSGWbfquvThKIU6 sqKGdQVArBMW5gXhkbrDL +LKIiYSX6uSsr WFraHHBohY5bGISlS5v0L qXyBsG6DRvvR0HyPNNdrf dzUq49bG7uJnDgNoA2SPp wL3ZpfsW7RSEe rSOiHEhfLCC2N81ja8E9C VRtAEGrZON9bVJ3uO8ieS lnbjogbGVmdDsgdmVydGl pNCybBYdiJ796 HKIjaZsrLbV6VjWoRgM0I yk2Q3IxPrj4EXNfxAohOC 9anPUvSFvkKy5usUvitFm xXV4sTICqqfri UAZrqR4hIOXoaLVuhXihL I4wZRPjfxvul531KjHsYV X4XPCqzRDzW2AmmN4vCuX sSUVuHQJiK1Gq kJWxJOvcP044FCpgZvG7V LAlztRjT6IlSHLtkZemRd S4y1U4Hk70YYMKJRXlzeq vdGQ+PHRkIHN0 gDpoKZmsQCNikM7yQVEmG 6p9KvVwKwT2SDoyP8UtQS DfmosfPl89rL2nXpUvIiN 9OZclR5LbsrW7 HCTplIBdRGxiVDX6O17bw 1S1VCTuAUJuPOE0qGN7tK 1hbGlnbjogbGVmdDsgdmV ydGljYWwtYWxp Q385MTRgbUevTf8ymYC3D 0AeHdy7IXPxyGedPW5siB AiDSrfDb9dhKwstZgfSL5 wNTBpbjtwYWRk dS6cUSBilAIkoKduOV8pI JJdqrxsw612DuAlHAV6PK UauHFkK9OqwD6vYqEsDAZ rSATvN6MmdMJh JTqrP972GYezRiD5FFYxo yUpT9AyUDBvzPheZcP2l9 H3Lf0GfMSxAPKzSF94SA5 6AT34V5VaWbts dGFibGU+PHRhYmxlIHdpZ HRoPScxMDAlJyBzdHlsZT 7dKv2hYSGcFBFlqWfauKS lHdCyz7jrNVBb JBhbWM1pyRkkM3LuwZS4O ZRsm1p9Oc00Q31bQ8OppK A+SURleTX2mGO3dN2tWiZ xBlV3LVukZ470 ElVotTAaOciru7plx2vhd Vi5QaGgMOPphrBdeRpdBE S2x0UdCl83G56aNEhaSEQ oPSIyMCUiIHZh jGdncn5lvZ4iLz0+PGNvb DC5hRC6sH7wLxNzEpP4KK xiT116DuOqoKNhMvwtN73 pK1EwpMM+PHRy Irg0YBMpjFefZT7irQMiS AexJe4kDNH8AdWdQmDgUA ocU1RfYJCjociacqgoyED 7MBPrKPQonE99 Ar9vhFlvEh9dPCJoYXL5W PFzuIEoU1YgmW5hArSiDZ ZhZINhH0VmnQBqTMvsZ07 3RTvuIbE1CWSy ftRmM1FrADYdgIafLbC8r 0R9Ud8RxNnpzTOwDZ8tIa UlHTw1L2AwKgl4KVQetDy nKR5lkHKyDBom Yw7umEzirNmeJR0aJQKpl tpmi639AqPsl7nvLGXqyK DuYUhaAJE3E49tc2A5VLL wEWZeFNV7kZG4 cO7pgHpqlssmoVPppJavh cKlqTxnDRrvOIlxU673NW HlwCypKsTABrg6U2UcGpu 1TGGcbRsfXK4n oOZvVEzqGq1hlHcsgKnoK S3tPVIkvskpt630EpMzy8 uvTKKilUTbUYboXTG8N51 hu1F5GKLvITDo ZAX6iRH3wI4zjLnkqvzvq GVmdDsgdmVydGljYWwtYW rqX760WVKwjIbyRf6IEpk 3E1OuTfe3QKSy mJtyWC6svHQzDFgtNm8yt KzasSjiJA8hXKKgtsteo5 49KbMbb4awISQilULzPDu zAFO3Y66ka3N8 QLTlOVEiBLS3cGG8sB4cl GlnbjogbGVmdDsgdmVydG udSLraHCiaX044EAVkjId nPlBheWVyOjwv dGQ+ZO31ii96Y6EqLgecF vf6SJLsBXE9mGA3xI8yRC HxBBfdk7J7sXB9E0CyndS qvo4uh2lfPGTi ZTog (more content not included)... Normal [facility] XR Spine Lumbosacral Minimum 4 Viewson [...] Bartholomew M.D. Transcribed by: ESTEBAN Technologist: DEYANIRA [facility] Consent for Treatmenton 12-16 Consent for Treatment [id number]#1 .00CD:127 [facility] Consent for Treatment [id number]#1. 00CD:127 [facility] Legal Correspondence Officeo n 12-25-2021 Legal Correspondence Office [id number]# 1.00CD:127 [facility] Office/Clinic Note-Physician on 12-25-2021 Office/Clinic Note-Physician [id number]# 1.00CD:127 [facility] Orders Officeon 12-25-2021 Orders Office [id number]# 1.00CD:127 [facility] Patient Correspondenceon Patient Correspondence [id number]# 1.00CD:127 [facility] Patient Correspondence [id number]# 1.00CD:127 [facility] Patient Correspondence [id number]# 1.00CD:127 [facility] Patient Correspondence [id number]# 1.00CD:127 [facility] Patient History Officeon Patient History Office [id number]# 1.00CD:127 [facility] Physician Orderon 12-25-2021 Physician Order [id number] #1.00CD:127 Normal [facility] Office Visit (Cardiology)on 12-19-2021 Follow-up visit Diagnoses/Problems [...] from primary care physician and vascular/Intervention al section maintainer for further evaluation management of syncope and [...] his initial evaluation appropriately with a 7-day power regulator and an echocardiogram. Patient also underwent a [...] Lisinopril 40 (more content not included)... Normal [facility] Tobacco Screening.on Fall risk assessment a) No falls within the last year [facility] 100 DO Work Phone: Tobacco use status [facility] b) No M P-Cardiolog y-[place] 100 DO Work Phone: Falls Risk Screeningon 11-07 Fall risk assessment a) No falls within the last year [facility] 100 DO Work Phone: Tobacco use status [facility] b) No M [facility] 100 DO Work Phone: Office Visit (Cardiology)on [...] from primary care physician and vascular/Intervention al section maintainer for further evaluation management of syncope and [...] his initial evaluation appropriately with a 7-day power regulator and an echocardiogram. Patient also underwent a [...] Vital Signs Recorded: 31Oct2021 02:18PM Heart Rate62 Actzezvf420 Sodggvnrl32 Height5 ft 11 in Etxudx885 lb BMI Poktbtmuiz72.82 kg/m2 BSA Calculated2.2 Tobacco Useb) No Fall Screeninga) No falls within the last year O2 Ptmujramne68 Physical Exam Constitutional: alert and in no [...] bulb caus (more content not included)... Normal [facility] Tobacco Screening.on Fall risk assessment a) No falls within the last year [facility] 320 Work Phone: Tobacco use status [facility] b) No M P[facility] 320 Work Phone: Tobacco Screening.on Fall risk assessment a) No falls within the last year MG[facility]iolog y-[facility] Sary Mckenna 1500 DO Work Phone: Tobacco use status [facility] b) No M G-Cardiolog y-[facility] Sary Mckenna 1500 DO Work Phone: Tobacco Screening.on 021 Fall risk assessment b) One or more fall s in the last year -[facility] 250 DO Work Phone: Tobacco use status [facility] b) No M P-[facility] 250 DO Work Phone: Progress Note-Physicianon Progress Note-Physician Patient: MACARIO ASH Age: 86 years Sex: Male : 1935 Associated Diagnoses: None Author: Damien Weinberg Jr, DO Preoperative Information Anesthesia history: Patient history: denies [...] Daily, # 90 tab(s), Refills(s) 3, Pharmacy: [facility], 177, cm, 09/11/20 10:31:00 EST, Height/Length Dosing, 98.6, kg, 09/11/20 10:31:00 EST, Weight Dosing cyanocobalamin 1000 mcg/mL Inj: 1,000 microgram = 1 mL, IntraMuscular, qMonth, # 10 mL, Refills(s) 3, Pharmacy: [facility], 177, cm, 05/31/20 8:16:00 EDT, Height/Length Dosing, 98.6, kg, 05/31/20 8:16:00 EDT, Weight Dosing diclofenac Top 1% gel: 1 sruthi, Topical, BID for pain, 60 gram, Refill(s) 1, apply to foot & knee, [facility], 177, cm, 11/01/19 15:36:00 EST, Height/Length Measured, 99.5, kg, 11/01/19 15:36:00 EST, Weight Measured lisinopril 40 mg Tab: 40 mg, Oral, Daily, # 30 tab(s), Refills(s) 0, Pharmacy: [facility], 177, cm, 10/03/20 14:10:00 EST, Height/Length Dosing, 98.6, kg, 09/11/20 10:31:00 EST, Weight Dosing triamcinolone Top 0.1% Crm: 1 sruthi, Topical, BID, 454 gram, Refill(s) 1, to affected area, [facility] - [place],, 177, cm, 12/04/19 10:28:00 [...] Chronic low back pain / SNOMED CT 806635720 / Confirmed Osteoarthrosis, generalized, multiple joints / SNOMED CT 407770690 / Confirmed Diverticulosis / SNOMED CT 690078969 / Confirmed Acid reflux / SNOMED CT 931632865 / Confirmed Hiatal hernia with GERD / SNOMED CT 4526561757 / Confirmed Hearing difficulty / SNOMED CT 329173862 / Confirmed Heart murmur / SNOMED CT 379900838 / Confirmed Hypertension / SNOMED CT 0344396116 / Confirmed Dermatitis / SNOMED CT 2392065368 / Confirmed Canceled: Hiatal hernia / SNOMED CT 485396746 Canceled: Osteoarthritis / SNOMED CT 6320060081 Histories Past Medical History: No active or resolved past medical history items have been selected or recorded., SMOKES TOBACCO Family History: Hypertension Mother Alcoholism Grandparent Procedure history: Epidural injection of lumbar spine using fluoroscopic guidance ([id number]) on 09/11/2020 at 85 Years. Comments: 10/03/2020 14:10 Kim Bhatia RN L4-5 MART- 80% relief Epidural injection of lumbar spine using fluoroscopic guidance ([id number]) on 11/01/2019 at 84 Years. Comments: 11/22/2019 10:10 Dalila Griffin RN L4-5 MART- 97% relief for 10 days, now 75% relief right large toenail removal on 10/18/2011 at 76 Years. 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 heel spur on 10/18/1996 at 61 Years. Vasectomy ([id number]) on 10/18/1976 at 41 Years. oral surgeries on 10/18/1969 at 34 Years. Tonsillectomy and adenoidectomy ([id number]) on 10/18/1941 at 6 Years. Colonoscopy ([id number]). Social History Social & Psychosocial Habits Alcohol [...] and perfusion.. Gastrointestinal: Benign, nontender.. Integumentary: Warm, [place]. Neurologic: PER PAIN CLINIC ASSESSMENT. Plan [place] [employer] (ASA) physical status classification: Class III. Anesthetic Preoperative Plan Anesthesia: Monitored anesthesia care. Anestheti (more content not included)... Normal [facility] Comment on above: Result Comment: Elec tronically Signed By: Lenard Jurado DO, Damien Costa\.br\Date and Time Signed: 08/25/21 08:05 EST Progress [...] Chronic low back pain / SNOMED CT 642291686 / Confirmed Osteoarthrosis, generalized, multiple joints / SNOMED CT 828791680 / Confirmed Diverticulosis / SNOMED CT 141512351 / Confirmed Acid reflux / SNOMED CT 674948299 / Confirmed Hiatal hernia with GERD / SNOMED CT 2096013169 / Confirmed Hearing difficulty / SNOMED CT 015037869 / Confirmed Heart murmur / SNOMED CT 414963962 / Confirmed Hypertension / SNOMED CT 6089496562 / Confirmed Dermatitis / SNOMED CT 6851276428 / Confirmed Canceled: Hiatal hernia / SNOMED CT 297949519 Canceled: Osteoarthritis / SNOMED CT 1891903487 Physical Examination Vital Signs 08/20/2021 11:22 EDT [...] Last Charted Temp Oral 36.7 DegC (AUG 20:) SBP H 165mmHg (AUG 20 11:22) DBP H 97mmHg (AUG 20 11:22) SpO2 97 % (AUG 20 11:22) Height 177 cm (AUG 20 10:) Documented vital signs Pain assessment: Pain Assessment [...] vomiting. Plan Transfer/ Discharge: Condition stable. Normal [facility] Comment on above: Result Comment: Elec tronically Signed By: Damien Weinberg Jr, DO\.pao\Date and Time Signed: 08/25/21 08:04 EST Coding Summary.on 08-22-2021 Coding Summary. CD:[id number]:[id number] G h0bWw+PGhlYWQ+PQ0AGFT yX64sbKTpqO4NG2fCOV7N VPUNIDMTFE6ETO7zpWL8T YrcZ5BmkyIr PbbtkPFwOG17IKr4ARJ3m AjbFNdtoU6tpYJrV1o7Nu KwJL23fR03TAywBHNnGpV 3LjZpbjsgbWFy C6ffHfIsxXKeXke+PHRhY mxlIHdpZHRoPScxMDAlJy YbzLhvQM4lVf9jKEInZNR vbGxhcHNlOiBj y8dhFOYzOSukRX5ltOhdP 3AdoOT5RWIau6z7Xb35pT I+NQTjWPX2pFftEFeli87 9PpTdv0mjMTC2 kLIuNMkhXRV4P15ga0Y7V SVyFSBgSKE5yJI2vN2fqT boxampA7SdbLKhCoI3MHP 2gWKcjV4tuSyh kqdfyA5aOab+P87YIT2EM BLCWI0QJte9G0KaZjdjdR I+EO99DSVhFD15xWBuqPC xt6arbXj7UoMq IKUcIZC5rWotSHemh2BtO ELcK95knQIbz1X1DCWphD wunZFkZzGlhFW0kO6gPZl ndbcnv6tlmyrk Lpona2myja30sI00L84lR RafIMEdMYF9GYVlIWQmdO pdyy1qsZ2jVm8+AWhqc4a xb1jhuDm3TkOm BDRdduLquAvlZRM6y2YjW i27F6RdeXtfx6LhZok4dm 45zADbl7Q5kRW1LUjzHIX diM6oNVyzRcJ0 NHTpGpPnmH01sPYtXIcnV f2hsWskjMjfZO2tDYVlhs ooHGDuwY3nGEFcgSCfaHs tCU4yTQYatogb n963UeByMDQ8FWPsvTPwI 3JaxX1sSdFbOAJjSNFnI3 BkbSYeBMfaC596AKrkRpW 0MJQiohRiV3Uc KLVjlDkoFcY2p0H7Ec9Qc 1WuhfxbYPE1EYjvDKMgIt M2RuYkKhT7L5BxQqb8RHM uhYdaSS0cB9Ht QHIsyxmlijcjbQI5WZIzV HPmjI22xXEnYJreOm5ir6 T7h600JYGfJMTkmX92Ov1 udDogMTBwdCBU lN1kudzvy7qblogeJwSsV UPrBMr0XIt4BDSlvDwxHu JpOSF6LwD3IPH4bRTgsZ3 dqPsqqykifW6u Oyc+D56orW0ePWV2VIX0t znbTKDymwYzGU71XG94P0 RyPjwvdGFibGU+PGRpdiB yhEzoSM3hZoSk y9lnm8DvQXzrI9UmCDRmO AfgMxg9KRTzXYV7aLZ3eI 2rFNNdFXxzk0S8dIS9H4Z bwfDlue8sp5pb JOPmXEjvD35kzQGmt0M1Q SRitKB8VOLzxHyrZcDvsL 93Oyc+PUCfsGndd7AbWpy go1hul8qohXj6 ZvGpCJVsrbVdjGgoAGO8g 1CkSf58X59oBSxoPXHrSK JlTTDgGQJloQwygg7vzG8 wIi8+PGNvbCB3 xZY5qT5hKSLdWbP6GQijY 836IvCguYKmUwass8jml0 xhjDb2ToLiRKJaznFveFv pDMA8g8HyZz05 A11cDLedXEOrOHXwRNIxO BPhjObdqx4yuG0pJk0+PC 9yy1jgez16oL96kLD+PHR lVXB1kOmcFJqj DAIwgB4pWZpuFgU1CMNwZ tUoiP05gQGaGAckXm7opX jyuWizKC7oHZWnuwlao64 0UeDdb9stBWJu uUKkATbsJFB9G67zq4N3A QNhRODnPMW9gMK6yD0uxA lnbjogbGVmdDsgdmVydGl jMYyoMFqiN237 IHRvcDsnPlBhdGllbnQgT rAmWJu9D2BaXpd5ZBJjpV xpXU0jeEZyPGniJb1gzGz krNrnPK3hTILi ohzpm014IrPza6poAWYcz EVrTFzsWIN0L04fz9N6FZ ZaMOKlSDL1iCX8hB7moQr nbjogbGVmdDsg zqNnzJytGIkiTXraV002B HRvcDsnPkJpcnRoIERhdG F3II79GC43aFXil3G6lOL 2A5CqWJEkgjif zwkonSV3BOKsIYXvoB42C b9uiNmlDq8pGWPtDTR0RL BzzQSxY8JzaF6hGeTwDLA gVJMcG9BzaNBq DEcpF910GNjtUoS1CLFgu nUnV3GtAXEdvLkaXrE3t7 P8Oz5IV7G8OI61RN90fLL cx0B9wKJ5I5Og JQDfjrxxgvbcnHM9UTGbX TBekL71Rn5mlUcaPo1bOC SnUVL6HWPsdATkQ8AhtN9 yOiAjMDAwMDAw I8MthNXmCMojL059HEuqN zH7EZCclxOyZ9KrLJRivY ymSuL8p2D8Cm9QPVl4ZA0 5OK03vBOya3S8 aNY3K2WlUSHbottexfexh FC0NUTmGYAxgB24Pd5zvH wqWc7fTKGnJCE8SQBvkFR yV9UqdP1dCmJs NDGeDKScS5EctRDaVNruU 967LKyjKgO1CENkbiIiK7 PlZOCuvZurJcQ3e4W6Xh4 QYWFhVA64MLQ6 hOQ2PQ24UP01H2YhGnfdp GFibGU+PHRhYmxlIHdpZH RoPScxMDAlJyBzdHlsZT0 fJn4vRPFmZGKn jDzmuZNrCwMua3qlHUObU XirPX8zpWjlT6VmnAX2KK Cwt6n9Ex70D05aL0WhmLK +TFUgwTZ7kRH7 oI2cDwSbMtF9ZVgfR489L wGusXMqFzxxa3bdg1pxkQ r6WnC8KKBrmtDxxKvjQCJ 7e1AyGd60M01l IHdpZHRoPSIxNSUiIHZhb Ksptm1opL7bWq5+PGNvbC N3xXI5iZ0nOiCdBfF6UPd iV043PpRlhUPc Oqdak9lek5ymhLo5HmOhY ZDohuKzxShdXYZ8v6YyKm 44S1MuuZcwe1JkGyn1cz4 9pPSsa6P3qHJ9 L0FpTJPiqltklCSycXwxK S2vBEQwqfhjSLJsmQ4nYZ LmS7f5XrSvCeV2UBfqS7D ahqM3PVGqxQUg ZPzqSKB9T60gj1G4TCJdO JYlPFA3qLG0hW8gmBsamm ogbGVmdDsgdmVydGljYWw wQBzoC009VZBp bTsfKYIolQ1rMRMmhPWmv CmqCQ3nPMNbpejaPyEWH1 dtKVuJXYxXRY8gWekeuKQ +ENYpMUO4rUlq LZrrAZXrgO5bAPNuM9h4J gHtGrW9YUesB1WnDQIphw xvEr96vZ3wDeEiCiT3DRv lF1PxvuX9QVQk uFYoTEmsAMJ3Z34kp3W0U FQuRAIlFPO3yAD8iA0nyZ lnbjogbGVmdDsgdmVydGl pINqqYCeuA460 EMIvtFcsFxM3SlFkCcR9G md0G9WbZdm1PJNjsSuhBH 0oxCEqIKwdAb3vkGrzsQr gNC2lDURcqcyl SITxgK2zVMClnGYwhTajV P3tNKBihimor111DeHmTE P3RSYnoUVjR6XpnK5eFzI hMVUnMKKoG7Tz tYOkVSvuS252LVuoOnS3I KYfwgLdI2VpBZTweDfdBb J9w9L4Ow33DDDZZUDfjhc vdGQ+PHRkIHN0 jFtnHQlvXURadD1xABCrE 8z9WrRnOrN6MGkfH1EcOY WpstazEo67fI9fLqMoLrY 6FVzuE2UtsaN4 DGBlyMIyQZenJTY7K88bx 8P4KHOuHQMvOYC8zTI5xV 1hbGlnbjogbGVmdDsgdmV ydGljYWwtYWxp I840PMXwhIlyKh0rjRV0F 3TvMbc4WJHwuIifUQ5rzK RkYJbzCf2qxFrfbBphAR1 wNTBpbjtwYWRk uV8tFEQliPEljJazNJ3fU GVuzktoj145DvGxCLA4CT DgxYJfX4BwrI6qPyUuSNY wPTAkN4DpqSRy MOcmI116DZgsBiJ9PNHtx pMoJ4YsCVTyxNvhUlP6i9 N3Jw1WIJguNE9vriHvCP1 ufwR0K2WxBqgj dHI+WB66BGHnRL95fQPmy ZWpc3jkgHz2NlJhIFQzFQ Y4bVmrVNjfq1CnFPHqH27 mjTLzr2U2VWZo oUbqcAOxXkMlkMD4hT0fY Ucvntdhc3ynlarrGtnfu2 tojf52dP90K33oFEyyNVS oPSIzMCUiIHZh dYvwqo0xlR1zJq9+PGNvb MZ3uQQ1rH7tTzXlVnE3ML mmQ052DtKjgNJjYxoma4e mv5ithUb4LnZb KPGqczGznRuiMKH8x4WbD d04T92eXGuvDIAaMOGmRL HcGVSadVhzvn3giY4hKe8 +TM6vn3nwfk25 nS87eSH+EQDmHCN5eLokI GcxLXAanY9yOUnvFbC0GN BtWkQbyH49lGVzNCmnUm3 llLsskJfoBP5w NETmabzgh665VdNal9iyX RBjqXZwQSqqSQR5Q98ds3 G1MGRjGLGqEHD9bZE7nN8 hbGlnbjogbGVm dDsgdmVydGljYWwtYWxpZ 495AJMdgWvzVtMsjEIeB7 vixiQOZG0xWfnqtQC+PHR xXLB3yEurUGpl VWFivG5iDHTgM8i7GqXbZ iT1YMolS3EavnX5SWTisF QfMSQvuXZHdZ7dvncbf0n vcjogIzAwMDAw EQp7BZg3MDXniAjjVhHeN KE7WmK2MQP0xECepZ6ciE pabprbaU4aKqv+RklOOjw vdGQ+PHRkIHN0 xXsqWGukAWGpqC8gLEEqR 7i4GeWeUhN6WKrnC9Nlmq G3HJXbyYDnERHprZSDcA3 wvfmgi3wkgarh BiWaBRXpXGf4ZJu5PMZej ZxgNqDcRVR5SaY4ODF8rP LvkN3kbSjtmdswoJ3zMvn +TVJOOjwvdGQ+ BUVjDKR3rGohSAgoPNBiu B8dOXAyK8b5LyVfAlQ5UB gmY6KdpkC9JKFykHJvCXQ qaUAGiP3ymsue b1wojtvaDhTrAUUcPEm7E Ha9UJEgaCtuZjKyHGZ3Uj Y7BUT8aDWjuN7iwRowzcz adR6wGns+UGF5 QWJ1CM51WO83T9UeJxiat GFibGU+PHRhYmxlIHdpZH RoPScxMDAlJyBzdHlsZT0 sMg7oJBSyTHCr bGxh (more content not included)... Normal [facility] Operative Reporton Operative Report SURGERY DATE: 08/20/2021 [...] condition. Bayron Rodriguez M.D. lr Dictated: 08/20/2021 [id number] Transcribed: 08/20/2021 [facility] Comment on above: Result Comment: Elec tronically Signed By: Jennifer GAUTAM, Bayron\.br\Date and Time Signed: 08/21/21 17:00 EDT Consent for Anesthesiaon Consent for Anesthesia [id number]# 1.00CD:127 [facility] Consent for Procedure/Surger yon 08-20-2021 Consent for Procedure/Surgery [id number]# 1.00CD:127 [facility] Consent for Treatmenton Consent for Treatment [id number]#1 .00CD:127 [facility] Discharge Instructionson Discharge Instructions [id number]# 1.00CD:127 [facility] IntraOperative Documentson 1 10-20-2020 IntraOperative Documents [id number]# 1.00CD:127 [facility] IntraOperative Documents [id number]# 1.00CD:127 [facility] Main OR Intraoperative Recor don 08-20-2021 Main OR Intraoperative Record IntraOp Document Type FTPM Summary Primary Physician: Bayron Rodriguez MD Finalized Date/Time: 08/20/21 11:12:24 Pt. Name: MACARIO ASH Main Young/Sex: 1935 Male Med Rec #: [id number] Physician: Bayron Rodriguez MD Financial #: [id number] Pt. Type: P Room/Bed: / Admit/Disch: 08/20/21 [...] Performed Anesthesiologist Surgeon - Primary Anesthesiologist of Licensed Tax Consultant Record Time In 08/20/21 11:01:00 08/20/21 11:01:00 08/20/21 11:01:00 Time Out 08/20/21 11:12:00 08/20/21 11:12:00 08/20/21 11:12:00 Procedure LUMBAR EPIDURAL STEROID LUMBAR EPIDURAL STEROID LUMBAR EPIDURAL STEROID INJECTION(.) INJECTION(.) INJECTION(.) Comments Last Modified By: Jose SCOTT, Anna 08/20/21 Jose SCOTT, Anna 08/20/21 Anna Garcia RN 08/20/21 11:12:16 11:12:16 11:12:16 Entry 4 Entry 5 Entry 6 Case Attendee Elaine SCOTT, Dalila Garcia RN, Anna [place] RT(R), Kelley Role Performed Scrub - Primary Laboratory Immunologist - Primary Materials Handling Equipment Operator Time In 08/20/21 11:01:00 08/20/21 11:01:00 08/20/21 [...] RN, Dalila Cain, Jennifer GAUTAM, Royce Verma, Kita Hair RT(R), Kelley Time Out Complete 08/20/21 11:02:00 [...] Description LESI Primary Procedure Yes Primary Surgeon Bayron Rodriguez MD Start 08/20/21 11:04:00 Stop 08/20/21 11:09:00 Anesthesia [...] and tissue Entry 1 Skin Integrity Intact, [place], Warm, and Skin Abnormality No Dry Outcomes Met? Yes Last Modified By: nAna Garcia RN 08/20/21 11:05:57 Post-Care Text: The [...] Prone INJECTIO (more content not included)... Normal [facility] Main OR Preoperative Recordo n 08-20-2021 Main OR Preoperative Record Holding Area Document Type FTPM Summary Primary Physician: Bayron Rodriguez MD Finalized Date/Time: 08/20/21 10:23:19 Pt. Name: MACARIO ASH/Sex: 1935 Male Med Rec #: [id number] Physician: Bayron Rodriguez MD Financial #: [id number] Pt. Type: P Room/Bed: / Admit/Disch: 08/20/21 [...] back pain Operative Site Yes Marked By: Per Dr. Rodriguez Marking: Availability Equipment, X-Ray Verified: Does Patient Smoke No Patient states Yes Comment - Adult Mat postop adult Supervision supervision available Case Cancelled in No Holding Area see comments below for reason Last Modified By: Kyung Ceja RN 08/20/21 10:23:15 Finalized By: Kyung Ceja RN Document Signatures Signed By: Kyung Ceja RN 08/20/21 10:23 Normal [facility] Patient Correspondenceon Patient Correspondence [id number] .[id number]:127 [facility] Patient Correspondenceon Patient Correspondence [id number]:127 [facility] Auth for Release of Medical Recordson 05-27-2021 Auth for Release of Medical Records [id number] .[id number]:127 [facility] Vital Signs Date Time Vital Sign Value Performing Clinician Facility 08-10-2024 12:32-0400 Diastolic blood pressure 80 mm[Hg] Macario Swanson DO Work Phone: [facility] 08-10-2024 12:32-0400 Systolic blood pressure 174 mm[Hg] Macario Swanson DO Work Phone: [facility] 08-10-2024 11:52-0400 Body height 181.6 cm Macario Swanson DO Work Phone: [facility] 08-10-2024 11:52-0400 Body mass index (BMI) [Ratio] 30.97 kg/m2 Macario Swanson DO Work Phone: [facility] 08-10-2024 11:52-0400 Body weight 102.15 kg Macario Swanson DO Work Phone: [facility] 08-10-2024 11:52-0400 Heart rate 60 /min Macario Swanson DO Work Phone: [facility] 08-11-2023 12:14-0400 Body height 182.9 cm Macario Swanson DO Work Phone: [facility] 08-11-2023 12:14-0400 Body mass index (BMI) [Ratio] 30.52 kg/m2 Macario Swanson DO Work Phone: [facility] 08-11-2023 12:14-0400 Body weight 102.06 kg Macario Swanson DO Work Phone: [facility] 08-11-2023 12:14-0400 Diastolic blood pressure 88 mm[Hg] Macario Swanson DO Work Phone: [facility] 08-11-2023 12:14-0400 Heart rate 68 /min Macario Swanson DO Work Phone: [facility] 08-11-2023 12:14-0400 Systolic blood pressure 136 mm[Hg] Macario Swanson DO Work Phone: [facility] 12-09-2022 11:50-0500 Diastolic blood pressure 78 mm[Hg] Moon M Hoy Work Phone: [facility] DO Work Phone: 12-09-2022 11:50-0500 Systolic blood pressure 160 mm[Hg] Moon M Hoy Work Phone: [facility] DO Work Phone: 12-09-2022 11:28-0500 Body height 180.34 cm Moon M Hoy Work Phone: [facility] DO Work Phone: 12-09-2022 11:28-0500 Body mass index (BMI) [Ratio] 30.96 kg/m2 Moon M Hoy Work Phone: [facility] DO Work Phone: 12-09-2022 11:28-0500 Body surface area Derived from formula 2.2 m2 Moon M Hoy Work Phone: [facility] DO Work Phone: 12-09-2022 11:28-0500 Body weight 100.7 kg Moon M Hoy Work Phone: [facility] DO Work Phone: 12-09-2022 11:28-0500 Diastolic blood pressure 82 mm[Hg] Moon M Hoy Work Phone: [facility] DO Work Phone: 12-09-2022 11:28-0500 Heart rate 78 /min Moon M Hoy Work Phone: [facility] DO Work Phone: 12-09-2022 11:28-0500 Systolic blood pressure 168 mm[Hg] Moon M Hoy Work Phone: [facility] DO Work Phone: 08-03-2022 15:25-0400 Body height 180.34 cm Moon M Hoy Work Phone: [facility] DO Work Phone: 08-03-2022 15:25-0400 Body mass index (BMI) [Ratio] 31.24 kg/m2 Moon M Hoy Work Phone: [facility] DO Work Phone: 08-03-2022 15:25-0400 Body surface area Derived from formula 2.21 m2 Moon M Hoy Work Phone: [facility] DO Work Phone: 08-03-2022 15:25-0400 Body weight 101.61 kg Moon M Hoy Work Phone: [facility] DO Work Phone: 08-03-2022 15:25-0400 Diastolic blood pressure 72 mm[Hg] Moon M Hoy Work Phone: [facility] DO Work Phone: 08-03-2022 15:25-0400 Heart rate 61 /min Moon M Hoy Work Phone: [facility] DO Work Phone: 08-03-2022 15:25-0400 Systolic blood pressure 154 mm[Hg] Moon M Hoy Work Phone: [facility] DO Work Phone: 07-06-2022 10:05-0400 Body height 180.34 cm Moon M Hoy Work Phone: [facility] DO Work Phone: 07-06-2022 10:05-0400 Body mass index (BMI) [Ratio] 31.17 kg/m2 Moon M Hoy Work Phone: [facility] DO Work Phone: 07-06-2022 10:05-0400 Body surface area Derived from formula 2.21 m2 Moon M Hoy Work Phone: [facility] DO Work Phone: 07-06-2022 10:05-0400 Body weight 101.38 kg Moon M Hoy Work Phone: [facility] DO Work Phone: 07-06-2022 10:05-0400 Diastolic blood pressure 82 mm[Hg] Moon M Hoy Work Phone: [facility] DO Work Phone: 07-06-2022 10:05-0400 Heart rate 70 /min Moon M Hoy Work Phone: [facility] DO Work Phone: 07-06-2022 10:05-0400 Systolic blood pressure 150 mm[Hg] Moon M Hoy Work Phone: [facility] DO Work Phone: 05-21-2022 12:23-0400 Diastolic blood pressure 62 mm[Hg] Moon M Hoy Work Phone: [facility] DO Work Phone: 05-21-2022 12:23-0400 Systolic blood pressure 140 mm[Hg] Moon M Hoy Work Phone: [facility] DO Work Phone: 05-21-2022 11:45-0400 Body height 180.34 cm Moon M Hoy Work Phone: [facility] DO Work Phone: 05-21-2022 11:45-0400 Body mass index (BMI) [Ratio] 31.66 kg/m2 Moon M Hoy Work Phone: [facility] DO Work Phone: 05-21-2022 11:45-0400 Body surface area Derived from formula 2.23 m2 Moon M Hoy Work Phone: [facility] DO Work Phone: 05-21-2022 11:45-0400 Body weight 102.97 kg Moon M Hoy Work Phone: [facility] DO Work Phone: 05-21-2022 11:45-0400 Diastolic blood pressure 78 mm[Hg] Moon Parrishy Work Phone: [facility] DO Work Phone: 05-21-2022 11:45-0400 Heart rate 80 /min Moon Wild Hoy Work Phone: [facility] DO Work Phone: 05-21-2022 11:45-0400 Systolic blood pressure 152 mm[Hg] Moon Wild Hoy Work Phone: [facility] DO Work Phone: 05-08-2022 11:21-0400 Body temperature 98.2 [degF] MD Moon Harper Work Phone: [facility] 05-08-2022 11:21-0400 Diastolic blood pressure 83 mm[Hg] MD Moon Harper Work Phone: [facility] 05-08-2022 11:21-0400 Heart rate 65 /min MD Moon Harper Work Phone: [facility] 05-08-2022 11:21-0400 Respiratory rate 18 /min MD Moon Harper Work Phone: [facility] 05-08-2022 11:21-0400 SaO2% (BldA) [Mass fraction] 97 % MD Moon Harper Work Phone: [facility] 05-08-2022 11:21-0400 Systolic blood pressure 139 mm[Hg] MD Moon Harper Work Phone: [facility] 05-08-2022 05:32-0400 Body weight 99 kg MD Moon Harper Work Phone: [facility] 05-07-2022 15:28-0400 Body height 180.34 cm MD Moon Harper Work Phone: [facility] 05-07-2022 14:30-0400 Diastolic blood pressure 73 mm[Hg] MD Moon Harper Work Phone: [facility] 05-07-2022 14:30-0400 Heart rate 80 /min MD Moon Harper Work Phone: [facility] 05-07-2022 14:30-0400 Respiratory rate 18 /min MD Moon Harper Work Phone: [facility] 05-07-2022 14:30-0400 SaO2% (BldA) [Mass fraction] 97 % MD Moon Harper Work Phone: [facility] 05-07-2022 14:30-0400 Systolic blood pressure 135 mm[Hg] MD Moon Harper Work Phone: [facility] 05-07-2022 11:09-0400 Body temperature 98.5 [degF] MD Moon Harper Work Phone: [facility] 05-07-2022 11:04-0400 Body height 177.8 cm MD Moon Harper Work Phone: [facility] 05-07-2022 11:04-0400 Body weight 89.81 kg MD Moon Harper Work Phone: [facility] 04-12-2022 14:00-0400 Diastolic blood pressure 87 mm[Hg] MD Moon Harper Work Phone: [facility] 04-12-2022 14:00-0400 Heart rate 77 /min MD Moon Harper Work Phone: [facility] 04-12-2022 14:00-0400 Respiratory rate 16 /min MD Moon Harper Work Phone: [facility] 04-12-2022 14:00-0400 SaO2% (BldA) [Mass fraction] 97 % MD Moon Harper Work Phone: [facility] 04-12-2022 14:00-0400 Systolic blood pressure 156 mm[Hg] MD Moon Harper Work Phone: [facility] 04-12-2022 08:00-0400 Body temperature 98.3 [degF] MD Moon Harper Work Phone: [facility] 04-12-2022 06:00-0400 Body weight 100.7 kg MD Moon Harper Work Phone: [facility] 04-11-2022 15:49-0400 Inhaled oxygen flow rate 2 L/min MD Moon Harper Work Phone: [facility] 04-10-2022 23:56-0400 Body height 180.34 cm MD Moon Harper Work Phone: [facility] 04-10-2022 23:56-0400 Body mass index (BMI) [Ratio] 31.5 kg/m2 MD Moon Harper Work Phone: [facility] 04-03-2022 14:55-0400 Body height 180.34 cm Ada Barnes Other [employer] Other 04-03-2022 14:55-0400 Body mass index (BMI) [Ratio] 30.96 kg/m2 dAa Barnes Other [employer] Other 04-03-2022 14:55-0400 Body temperature 98.6 [degF] Ada Barnes Other [facility] Other 04-03-2022 14:55-0400 Body weight 100.7 kg Ada Barnes Other [employer] Other 04-03-2022 14:55-0400 Diastolic blood pressure 64 mm[Hg] Ada Barnes Other [facility] Other 04-03-2022 14:55-0400 Respiratory rate 18 /min Ada Barnes Other [employer] Other 04-03-2022 14:55-0400 SaO2% (BldA) [Mass fraction] 98 % Ada Barnes Other [employer] Other 04-03-2022 14:55-0400 Systolic blood pressure 140 mm[Hg] Ada Barnes Other [employer] Other 02-20-2022 14:35-0400 Body height 180.34 cm Moon ReadyCarty Work Phone: UA-Qomhiypxkv-Warfua 100 DO Work Phone: 02-20-2022 14:35-0400 Body mass index (BMI) [Ratio] 31.63 kg/m2 Moon ReadyCarty Work Phone: XG-Nxpqcvdvbe-Stodgc 100 DO Work Phone: 02-20-2022 14:35-0400 Body surface area Derived from formula 2.22 m2 Moon ReadyCarty Work Phone: GN-Cjrlekulfr-Rckvci 100 DO Work Phone: 02-20-2022 14:35-0400 Body weight 102.88 kg Moon M Hoy Work Phone: FZ-Ipjboefoep-Govytf 100 DO Work Phone: 02-20-2022 14:35-0400 Diastolic blood pressure 72 mm[Hg] Moon Torri Hoy Work Phone: AI-Gxvdqcotzm-Zovyok 100 DO Work Phone: 02-20-2022 14:35-0400 Heart rate 61 /min Moon [employer] Hoy Work Phone: WB-Guorhxfioa-Soagpw 100 DO Work Phone: 02-20-2022 14:35-0400 SaO2% (BldA) [Mass fraction] 97 % Moon [employer] Hoy Work Phone: IZ-Mowgpbdktp-Iipzxo 100 DO Work Phone: 02-20-2022 14:35-0400 Systolic blood pressure 138 mm[Hg] Moon M Hoy Work Phone: LM-Wbsemezlgj-Seopue 100 DO Work Phone: 02-05-2022 11:52-0400 Diastolic blood pressure 86 mm[Hg] Bayron Zumbar [facility] 02-05-2022 11:52-0400 Heart rate 52 /min Bayron Zumbar [facility] 02-05-2022 11:52-0400 Mean blood pressure 112 mm[Hg] Bayron Zumbar [facility] 02-05-2022 11:52-0400 Respiratory rate 12 /min Bayron Zumbar [facility] 02-05-2022 11:52-0400 Systolic blood pressure 164 mm[Hg] Bayron Zumbar [facility] 12-19-2021 13:37-0500 Body height 180.34 cm Moon M Hoy Work Phone: UG-Sacmcggwpt-Nxbeek 100 DO Work Phone: 12-19-2021 13:37-0500 Body mass index (BMI) [Ratio] 30.82 kg/m2 Moon M Hoy Work Phone: YP-Lasrnvgbpp-Ndjweu 100 DO Work Phone: 12-19-2021 13:37-0500 Body surface area Derived from formula 2.2 m2 Moon M Hoy Work Phone: DY-Sdaemfitmd-Xcbgte 100 DO Work Phone: 12-19-2021 13:37-0500 Body weight 100.25 kg Moon M Hoy Work Phone: DS-Smuwoqmqcu-Tpbcad 100 DO Work Phone: 12-19-2021 13:37-0500 Diastolic blood pressure 73 mm[Hg] Moon M Hoy Work Phone: SU-Rsbmzywxge-Inhfqx 100 DO Work Phone: 12-19-2021 13:37-0500 Heart rate 65 /min Moon M Hoy Work Phone: LK-Cihaqalpus-Xzslus 100 DO Work Phone: 12-19-2021 13:37-0500 SaO2% (BldA) [Mass fraction] 97 % Moon M Hoy Work Phone: IN-Zwiaegjkar-Kvbumv 100 DO Work Phone: 12-19-2021 13:37-0500 Systolic blood pressure 174 mm[Hg] Moon M Hoy Work Phone: DG-Ossmsffdlu-Ghtsvz 100 DO Work Phone: 11-07-2021 14:34-0500 Body height 180.34 cm Moon M Hoy Work Phone: QP-Btayndjtkk-Dxcutl 100 DO Work Phone: 11-07-2021 14:34-0500 Body mass index (BMI) [Ratio] 30.82 kg/m2 Moon M Hoy Work Phone: NY-Njomxhrqwm-Cixvoe 100 DO Work Phone: 11-07-2021 14:34-0500 Body surface area Derived from formula 2.2 m2 Moon M Hoy Work Phone: LC-Ekombycwlp-Rccqdn 100 DO Work Phone: 11-07-2021 14:34-0500 Body weight 100.25 kg Moon M Hoy Work Phone: LT-Xefcyxxxys-Axkdsk 100 DO Work Phone: 11-07-2021 14:34-0500 Diastolic blood pressure 74 mm[Hg] Moon M Hoy Work Phone: VD-Qhstiarpyo-Ddwzsj 100 DO Work Phone: 11-07-2021 14:34-0500 Heart rate 67 /min Moon M Hoy Work Phone: SN-Cbafoictuj-Ayjbgd 100 DO Work Phone: 11-07-2021 14:34-0500 SaO2% (BldA) [Mass fraction] 97 % Moon M Hoy Work Phone: BF-Ugrrdmcmpf-Yjcmjx 100 DO Work Phone: 11-07-2021 14:34-0500 Systolic blood pressure 156 mm[Hg] Moon M Hoy Work Phone: YK-Jwxqcyuuly-Nfonno 100 DO Work Phone: 10-31-2021 14:18-0500 Body height 180.34 cm Moon M Hoy Work Phone: TK-Dznznmioxl-Nypadov e 320 Work Phone: 10-31-2021 14:18-0500 Body mass index (BMI) [Ratio] 30.82 kg/m2 Moon M Hoy Work Phone: VC-Ndarraiygd-Ijtulwr e 320 Work Phone: 10-31-2021 14:18-0500 Body surface area Derived from formula 2.2 m2 Moon M Hoy Work Phone: WD-Fzvfoejmqb-Ptcniny e 320 Work Phone: 10-31-2021 14:18-0500 Body weight 100.25 kg Moon M Hoy Work Phone: BB-Nsipjkemsl-Dnfxrml e 320 Work Phone: 10-31-2021 14:18-0500 Diastolic blood pressure 66 mm[Hg] Moon M Hoy Work Phone: VP-Xgavjcshkh-Emfskqu e 320 Work Phone: 10-31-2021 14:18-0500 Heart rate 62 /min Moon M Hoy Work Phone: YH-Bgfiqvlyka-Dgwuizy e 320 Work Phone: 10-31-2021 14:18-0500 SaO2% (BldA) [Mass fraction] 98 % Moon M Hoy Work Phone: UT-Xialaafpra-Paestrr e 320 Work Phone: 10-31-2021 14:18-0500 Systolic blood pressure 142 mm[Hg] Moon M Hoy Work Phone: NL-Wsplkxhakh-Qxsgayn e 320 Work Phone: 10-28-2021 14:58-0500 Body height 180.34 cm Moon M Hoy Work Phone: YE-Upclvemvzp-TZL [facility] DO Work Phone: 10-28-2021 14:58-0500 Body mass index (BMI) [Ratio] 30.54 kg/m2 Moon M Hoy Work Phone: CL-Pwxkqllyvo-UWH [facility] DO Work Phone: 10-28-2021 14:58-0500 Body surface area Derived from formula 2.19 m2 Moon M Hoy Work Phone: ZT-Boaygiyizz-SOI [facility] DO Work Phone: 10-28-2021 14:58-0500 Body weight 99.34 kg Moon M Hoy Work Phone: IQ-Hfxmeqbecc-CLH [facility] DO Work Phone: 10-28-2021 14:58-0500 Diastolic blood pressure 72 mm[Hg] Moon M Hoy Work Phone: RW-Jfuvglqbwt-GME [facility] DO Work Phone: 10-28-2021 14:58-0500 Heart rate 74 /min Moon M Hoy Work Phone: TI-Fkoobysxuv-MWV [facility] DO Work Phone: 01-11-2022 14:58-0500 Respiratory rate 16 /min Moon M Hoy Work Phone: [facility] DO Work Phone: 10-28-2021 14:58-0500 Systolic blood pressure 168 mm[Hg] Moon M Hoy Work Phone: [facility] DO Work Phone: 10-02-2021 11:48-0500 Diastolic blood pressure 80 mm[Hg] Moon M Hoy Work Phone: [facility] DO Work Phone: 10-02-2021 11:48-0500 Systolic blood pressure 154 mm[Hg] Moon M Hoy Work Phone: [facility] DO Work Phone: 10-02-2021 11:47-0500 Body height 180.34 cm Moon M Hoy Work Phone: [facility] 250 DO Work Phone: 10-02-2021 11:47-0500 Body mass index (BMI) [Ratio] 31.1 kg/m2 Moon M Hoy Work Phone: [facility] 250 DO Work Phone: 10-02-2021 11:47-0500 Body surface area Derived from formula 2.21 m2 Moon M Hoy Work Phone: [facility] DO Work Phone: 10-02-2021 11:47-0500 Body weight 101.15 kg Moon M Hoy Work Phone: [facility] DO Work Phone: 10-02-2021 11:47-0500 Diastolic blood pressure 84 mm[Hg] Moon M Hoy Work Phone: [facility] DO Work Phone: 10-02-2021 11:47-0500 Heart rate 60 /min Moon Torri Hoy Work Phone: [facility] DO Work Phone: 10-02-2021 11:47-0500 Systolic blood pressure 160 mm[Hg] Moon M Hoy Work Phone: [facility] DO Work Phone: 09-22-2021 16:45-0500 Body height 180.34 cm Lenny Armando Other [employer] Other 09-22-2021 16:45-0500 Body mass index (BMI) [Ratio] 31.38 kg/m2 Lenny Armando Other [employer] Other 09-22-2021 16:45-0500 Body weight 102.06 kg Lenny Armando Other [employer] Other 09-22-2021 16:45-0500 Diastolic blood pressure 88 mm[Hg] Lenny Armando Other [employer] Other 09-22-2021 16:45-0500 Respiratory rate 18 /min Lenny Armando Other [employer] Other 09-22-2021 16:45-0500 SaO2% (BldA) [Mass fraction] 99 % Lenny Armando Other [employer] Other 09-22-2021 16:45-0500 Systolic blood pressure 160 mm[Hg] Lenny Armando Other [employer] Other 09-18-2021 10:00-0500 Body height 180.34 cm Lenny Armando Other [employer] Other 09-18-2021 10:00-0500 Body mass index (BMI) [Ratio] 31.38 kg/m2 Lenny Mooneysalas Other [employer] Other 09-18-2021 10:00-0500 Body weight 102.06 kg Lenny Armando Other [employer] Other 09-18-2021 10:00-0500 Diastolic blood pressure 82 mm[Hg] eLnny Mooneysalas Other [employer] Other 09-18-2021 10:00-0500 Respiratory rate 18 /min Lenny Mooneysalas Other [employer] Other 09-18-2021 10:00-0500 SaO2% (BldA) [Mass fraction] 98 % Lenny Armando Other [employer] Other 09-18-2021 10:00-0500 Systolic blood pressure 144 mm[Hg] Lenny Armando Other [employer] Other Encounters Encounter Date Encounter Type Care Provider Facility Start: 08-10-2024 End: 08-10-2024 Office outpatient visit 25 minutes Macario Swanson DO Work Phone: [facility] Comment on above: 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; Atrial fibrillation, unspecified type (Multi); Implantable loop recorder present; Benign essential hypertension; History of percutaneous coronary intervention; History of PA (myocardial infarction); Former smoker; BMI 30.0-30.9,adult Start: 10-25-2023 End: 10-25-2023 ambulatory Macario Corona Facility:[facility] Start: 09-29-2023 End: 09-29-2023 Subsequent hospital visit by physician Inga Moralez Echo/Vasc Room 2 [facility] Comment on above: Atrial fibrillation, unspecified type (CMS/HCC); 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; Benign essential hypertension; Stenosis of carotid artery, unspecified laterality; Carotid atherosclerosis, unspecified laterality; Bilateral carotid bruits Start: 09-29-2023 End: 09-29-2023 ambulatory [facility] Start: 09-23-2023 End: 09-23-2023 ambulatory Macario Corona Facility:[facility] Start: 09-23-2023 End: 09-23-2023 ambulatory MD Moon Harper Work Phone: [facility] Work Phone: Start: 09-23-2023 End: 09-23-2023 Patient encounter procedure MD Moon Harper Work Phone: [facility] Start: 08-23-2023 End: 08-23-2023 ambulatory Moon Harper Facility:[facility] Start: 08-23-2023 End: 08-23-2023 ambulatory MD Moon Harper Work Phone: [facility] Work Phone: Start: 08-23-2023 End: 08-23-2023 Patient encounter procedure MD Moon Harper Work Phone: [facility] Start: 08-11-2023 End: 08-11-2023 ambulatory [facility] Start: 08-11-2023 End: 08-11-2023 [facility] Comment on above: Atrial fibrillation, unspecified type (CMS/HCC); 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; Benign essential hypertension; History of PA (myocardial infarction); Mixed hyperlipidemia; Implantable loop recorder present; Stenosis of carotid artery, unspecified laterality; Carotid atherosclerosis, unspecified laterality; Bilateral carotid bruits Start: 07-22-2023 End: 07-22-2023 ambulatory Macario Corona Facility:[facility] Start: 07-22-2023 End: 07-22-2023 ambulatory MD Moon Harper Work Phone: [facility] Work Phone: Start: 07-22-2023 End: 07-22-2023 Patient encounter procedure MD Moon Harper Work Phone: [facility] Start: 06-22-2023 End: 06-22-2023 ambulatory Macario Corona Facility:[facility] Start: 06-22-2023 End: 06-22-2023 Patient encounter procedure MD Moon Harper Work Phone: [facility] Start: 06-22-2023 End: 06-22-2023 ambulatory MD Moon Harper Work Phone: [facility] Work Phone: Start: 05-20-2023 End: 05-20-2023 ambulatory Macario Corona Facility:[facility] Start: 05-20-2023 End: 05-20-2023 ambulatory MD Moon Harper Work Phone: [facility] Work Phone: Start: 05-20-2023 End: 05-20-2023 Patient encounter procedure MD Moon Harper Work Phone: [facility] Start: 05-20-[address] Moon Harper Facility:[id number] Start: 05-12-2023 Rx Renewal Moon Harper Work Phone: [facility] DO Work Phone: Start: 04-21-2023 Rx Renewal Moon Harper Work Phone: [facility] DO Work Phone: Start: 04-19-2023 End: 04-19-2023 ambulatory Macario Corona Facility:[facility] Start: 04-19-2023 End: 04-19-2023 ambulatory MD Moon Harper Work Phone: [facility] Work Phone: Start: 04-19-2023 End: 04-19-2023 Patient encounter procedure MD Moon Harper Work Phone: [facility]-Pacemaker Check Start: 04-19-[address] Moon Harper Facility:[id number] Start: 02-17-2023 End: 02-18-[address] MOON HARPER . Facility:H1 Start: 02-15-2023 End: 02-15-2023 ambulatory Macario Corona Facility:[facility] Start: 02-15-2023 End: 02-15-2023 ambulatory MD Moon Harper Work Phone: [facility] Work Phone: Start: 02-15-2023 End: 02-15-2023 Patient encounter procedure MD Moon Harper Work Phone: [facility]-Pacemaker Check Start: 02-15-[address] Moon Harper Facility:[id number] Start: 01-14-2023 End: 01-14-[address] Moon Harper Facility:[id number] Start: 01-14-2023 End: 01-14-2023 ambulatory MD Moon Harper Work Phone: [facility] Work Phone: Start: 01-14-2023 End: 01-14-2023 Patient encounter procedure MD Moon Harper Work Phone: [facility]-Pacemaker Check Start: 01-04-2023 End: 01-04-[address] MOON HARPER . Facility:H1 Start: 12-15-[address] Moon Harper Facility:[id number] Start: 12-14-2022 End: 12-14-2022 ambulatory Macario Corona Facility:[facility] Start: 12-14-2022 End: 12-14-2022 ambulatory MD Moon Harper Work Phone: [facility] Work Phone: Start: 12-14-2022 End: 12-14-2022 Patient encounter procedure MD Moon Harper Work Phone: [facility]-Pacemaker Check Start: 12-09-2022 Office outpatient vi sit 25 minutes Moon Torri Parrishy Work Phone: [facility] 250 DO Work Phone: Start: 12-09-2022 ambulatory Gisele Schilling Facility:1 [id number] Start: 11-14-[address] Moon Harper Facility:[id number] Start: 11-13-2022 End: 11-13-2022 Patient encounter procedure MD Moon Harper Work Phone: [facility]-Pacemaker Check Start: 10-08-[address] Moon Harper Facility:[id number] Start: 08-14-[address] Moon Harper Facility:[id number] Start: 08-05-2022 Patient encounter procedure Moon Harper Work Phone: [facility] 250 DO Work Phone: Start: 08-04-2022 End: 08-05-[address] MOON HARPER . Facility:H1 Start: 08-03-2022 Office outpatient vi sit 15 minutes Moon Harper Work Phone: [facility] 250 DO Work Phone: Start: 08-03-2022 Patient encounter procedure Moon Harper Work Phone: [facility] 250 DO Work Phone: Start: 08-03-2022 ambulatory Gisele Schilling Facility:1 [id number] Start: 07-27-2022 End: 07-27-[address] MOON HARPER . Facility:H1 Start: 07-06-2022 ambulatory Gisele Schilling Facility:1 [id number] Start: 07-01-2022 End: 07-01-[address] MOON HARPER . Facility:H1 Start: 05-27-2022 End: 05-30-[address] MOON HARPER . Facility:H1 Start: 05-21-2022 Transitional care manage srvc 14 day discharge Moon Harper Work Phone: -[facility] 250 DO Work Phone: Start: 05-18-2022 End: 10-06-[address] MOON HARPER . Facility:H1 Start: 05-07-2022 End: 05-08-2022 Evaluation and management of inpatient MD Moon Harper Work Phone: [facility] [place] [facility] Start: 04-10-2022 End: 04-12-2022 Evaluation and management of inpatient MD Moon Harper Work Phone: [facility] [place] [facility] Start: 04-10-2022 End: 04-11-2022 ambulatory MACY STUBBS Facility:H1 Start: 04-03-2022 End: 04-03-2022 ambulatory Ada Barnes Other [facility] [employer] Other Start: 04-03-2022 Office outpatient vi sit 15 minutes Ada Barnes [facility] Start: 04-01-2022 End: 04-01-[address] MOON HARPER . Facility:H1 Start: 02-20-2022 Office outpatient vi sit 15 minutes Moon Harper Work Phone: XZ-Nrlkrdwlbl-Muoozv 100 DO Work Phone: Start: 02-10-2022 Patient encounter procedure Moon Harper Work Phone: TI-Zzotwtqiuj-Stdeg Work Phone: Start: 02-05-2022 End: 02-05-2022 Pain Management Bayron Rodriguez [facility] Start: 01-09-2022 ABLATION, Provider: [facility] CRYSTAL EVALUATOR 4,[id number], Status: Pen, Time: 8:00 AM Moon M Hoy Work Phone: EG-Naumeljyll-Gsbpsikf [facility] 2300 Work Phone: Start: 01-01-2022 AUDIT Moon M Hoy Work Phone: EA-Mundzdzqne-Lnemmwbo [facility] 2300 Work Phone: Start: 12-24-2021 AUDIT Moon M Hoy Work Phone: WM-Durloqdjdd-Bmmcoycm [facility] 2300 Work Phone: Start: 12-19-2021 Office outpatient vi sit 25 minutes Moon M Hoy Work Phone: XJ-Yezvrhyybr-Bhddzn 100 DO Work Phone: Start: 11-10-2021 AUDIT Moon M Hoy Work Phone: DH-Ekxmyceoho-Wexadtv [address] [place] Work Phone: Start: 11-07-2021 Office outpatient vi sit 25 minutes Moon M Hoy Work Phone: JD-Ljkfpjeibn-Vpuqjw 100 DO Work Phone: Start: 10-31-2021 Office outpatient ne w 60 minutes Moon M Hoy Work Phone: CT-Zzexgapndx-Vfabfyvl 320 Work Phone: Start: 10-28-2021 Office outpatient ne w 60 minutes Moon M Hoy Work Phone: CE-Nhashyrifw-MPQ [facility] 1500 DO Work Phone: Start: 10-28-2021 Patient encounter procedure Moon M Hoy Work Phone: ZS-Llwjdvzozb-PBE [facility] 1500 DO Work Phone: Start: 10-02-2021 Office consultation new/estab patient 80 min Moon M Hoy Work Phone: -[facility] 250 DO Work Phone: Start: 10-02-2021 Office outpatient ne w 60 minutes Moon M Hoy Work Phone: [facility] Work Phone: Start: 09-22-2021 End: 09-22-2021 ambulatory Lenny Armando Other [employer] Other Start: 09-22-2021 Office outpatient vi sit 15 minutes Lenny Armando [facility] Vascular Surgery Start: 09-18-2021 End: 09-18-2021 ambulatory Lenny Armando Other [employer] Other Start: 09-18-2021 Office outpatient vi sit 25 minutes Lenny Mooneysalas [facility] Vascular Surgery Patient encounter status Moon Harper Work Phone: GT-Bkxvrzglbl-Slvebdpu [facility] 2300 Work Phone: Procedures Date Procedure Procedure Detail Performing Clinician Start: 09-29-2023 VASC US CAROTID JOE RY DUPLEX BILATERAL MACARIO SKY Start: 05-07-2022 Plain chest X-ray MD Monreal Work Phone: Start: 04-11-2022 Plain chest X-ray MD Monreal Work Phone: Start: 01-07-2022 Epidural injection o f lumbar spine using fluoroscopic guidance [employer] Comment on above: L5-S1 70% Relief Start: 08-20-2021 Epidural injection o f lumbar spine using fluoroscopic guidance [employer] Comment on above: L4-5 90% Relief for 6 weeks Start: 09-11-2020 Epidural injection o f lumbar spine using fluoroscopic guidance [employer] Comment on above: L4-5 MART- 80% relief Start: 11-01-2019 Epidural injection o f lumbar spine using fluoroscopic guidance [employer] Comment on above: L4-5 MART- 97% relief for 10 days, now 75% relief Start: 10-18-2011 right large toenail removal [employer] Start: 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 Bayron Rodriguez 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 Start: 10-18-1996 heel spur Bayron Mercado Start: 10-18-1976 Vasectomy Bayron Mercado Start: 10-18-1969 oral surgeries Bayron Rodriguez Start: 10-18-1941 Tonsillectomy and adenoidectomy Bayron Rodriguez Colonoscopy Bayron Rodriguez History of placement of stent for coronary artery disease S/P drug eluting coronary stent placement Moon Harper Work Phone: Implantation of insertable loop recorder Moon Torri Harper Work Phone: Mouth and face operations Do nora Harper Work Phone: Percutaneous translu heather coronary angioplasty Moon Harper Work Phone: SARS Antigen (LFIA) MD Nithya Harper Work Phone: Total colonoscopy Moon Parrishdante Work Phone: Plan of Treatment Date Care Activity Detail Author Start: 07-26-2025 End: 07-26-2025 Patient encounter procedure 07/26/2025 10:10 AM EDT Office Visit [facility] [address] [place] [address] [address] [place] [address] Macario Swanson DO [address] [facility] [address] [place] [address] [facility] Start: 11-08-2024 End: 11-08-2024 Patient encounter procedure 11/08/2024 10:00 AM EST Office Visit [facility] [address] [place] [address] Macario Swanson DO [address] [place] [address] [facility] Start: 08-10-2024 End: 08-10-2024 Patient encounter procedure 08/10/2024 11:20 AM EDT Office Visit [facility] [address] [facility] [address] [place] [address] Macario Swanson, DO [address] [facility] [address] [place] [address] [facility] Start: 06-18-2024 COVID-19 Vaccine ( season) COVID-19 Vaccine () [facility] Start: 06-18-2024 Influenza vaccination Influenza Vacc ine (#1) [facility] Start: 09-29-2023 End: 09-29-2023 Patient encounter procedure 09/29/2023 10:45 AM EST Appointment [facility] [address] [facility] [address] [place] [address] [facility] Start: 08-11-2023 End: 08-11-2025 US.doppler Carotid arteries - bilateral Vascular US Carotid Artery Duplex Bilateral Vascular Ultrasound Routine Atrial fibrillation, unspecified type (CMS/HCC) 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 Benign essential hypertension Stenosis of carotid artery, unspecified laterality Carotid atherosclerosis, unspecified laterality Bilateral carotid bruits Expected: 08/11/2023 (Approximate), Expires: 08/11/2025 [facility] Service Area Work Phone: Comment on above: Expected: 08/11/2023 (Approximate), Expires: 08/11/2025 Start: 08-11-2023 FUV, Provider: Macario Swanson, Status: Daniel, Time: 11:20 AM FUV, Provider: Macario Swanson, Status: Daniel, Time: 11:20 AM [facility] 250 DO Work Phone: Start: 12-03-2022 FUV, Provider: Macario Swanson, Status: Pen, Time: 10:20 AM FUV, Provider: Macario Swanson, Status: Pen, Time: 10:20 AM -[facility] 250 DO Work Phone: Start: 10-30-2022 FUV, Provider: Addy Alas, Status: Pen, Time: 2:30 PM FUV, Provider: Addy Alas, Status: Pen, Time: 2:30 PM ZV-Mlplgamcwo-Djmhmto e 320 Work Phone: Start: 08-21-2022 FUV, Provider: Addy Alas, Status: Pen, Time: 2:15 PM FUV, Provider: Addy Alas, Status: Pen, Time: 2:15 PM ZM-Mxustsaxiq-Zzpwqp 100 DO Work Phone: Start: 07-06-2022 FUV, Provider: Gisele Bill, Status: Pen, Time: 10:00 AM FUV, Provider: Gisele Bill, Status: Pen, Time: 10:00 AM [facility] 250 DO Work Phone: Start: 05-08-2022 [facility] Work Phone: Start: 05-07-2022 Referral to section maintainer [facility] Work Phone: Start: 05-07-2022 Hospital admission [facility] Work Phone: Start: 05-07-2022 [facility] Work Phone: Start: 05-07-2022 [facility] Work Phone: Start: 04-12-2022 [facility] Work Phone: Start: 04-11-2022 [facility] Work Phone: Start: 04-11-2022 Hospital admission [facility] Work Phone: Start: 04-11-2022 [facility] Work Phone: Start: 04-11-2022 Hospital admission [facility] Work Phone: Start: 04-11-2022 Referral to section maintainer [facility] Work Phone: Start: 04-10-2022 Sleep disorder assessment [facility] Work Phone: Start: 04-10-2022 Dilation of Coronary Artery, One Artery with Three Drug-eluting Intraluminal Devices, Percutaneous Approach Dilation of Coronary Artery, One Artery with Three Drug-eluting Intraluminal Devices, Percutaneous Approach [facility] Start: 04-10-2022 Fluoroscopy of Left Heart using Low Osmolar Contrast Fluoroscopy of Left Heart using Low Osmolar Contrast [facility] Start: 04-10-2022 Fluoroscopy of Multi ple Coronary Arteries using Low Osmolar Contrast Fluoroscopy of Multiple Coronary Arteries using Low Osmolar Contrast [facility] Start: 04-10-2022 Measurement of Cardi ac Sampling and Pressure, Left Heart, Percutaneous Approach Measurement of Cardiac Sampling and Pressure, Left Heart, Percutaneous Approach [facility] Start: 04-10-2022 Oriental Orthodox of Cardi ac Rhythm, Single Oriental Orthodox of Cardiac Rhythm, Single [facility] Start: 02-20-2022 FUVHOSP, Provider: Addy Alas, Status: Pen, Time: 2:45 PM FUVHOSP, Provider: Addy Alas, Status: Pen, Time: 2:45 PM PJ-Tbyescpiwp-Ddhtr Work Phone: Start: 01-29-2022 FUV, Provider: Macario Swanson, Status: Pen, Time: 11:20 AM FUV, Provider: Macario Swanson, Status: Pen, Time: 11:20 AM LR-Cjgbwjpmoy-Rrhnyaa e 320 Work Phone: Start: 01-09-2022 ABLATION, Provider: [facility] CRYSTAL EVALUATOR [id number], Status: Pen, Time: 8:00 AM ABLATION, Provider: [facility] CRYSTAL EVALUATOR [id number], Status: Pen, Time: 8:00 AM QL-Cyyhkjuaxm-Ovzrvwo e [facility] 2300 Work Phone: Start: 12-19-2021 FUV, Provider: Addy Alas, Status: Pen, Time: 3:00 PM FUV, Provider: Addy Alas, Status: Pen, Time: 3:00 PM NT-Illadlhigd-Bfxjek 100 DO Work Phone: Start: 07-08-2021 DTaP/Tdap/Td Vaccine s (1 - Tdap) DTaP/Tdap/Td Vaccines (1 - Tdap) [facility] Start: 02-11-2021 COVID-19 Vaccine (3 - Moderna series) COVID-19 Vaccine (3 - Moderna series) [facility] Start: 2012 RSV High Risk: (Elde rly (60+) or Population) (1 - 1-dose 75+ series) RSV High Risk: (Elderly (60+) or Population) (1 - 1-dose 75+ series) [facility] Start: 12-19-2007 Zoster Vaccines (2 o f 3) Zoster Vaccines (2 of 3) [facility] Start: 1955 Diabetes mellitus screening Diabetes Screening [facility] Start: 1937 Lipid panel Lipid Panel [facility] Start: 1937 Medicare Annual Wellness Visit Medicare Annual Wellness Visit (AWV) [facility] Patient referral [facility] Work Phone: SARS-CoV-2 (COVID-19 ) N gene [Presence] in Respiratory specimen by MERLYN with probe detection [facility] Work Phone: Troponin I.cardiac [Mass/volume] in Serum or Plasma by High sensitivity method [facility] Work Phone: End: 09-29-2023 US.doppler Carotid arteries - bilateral [facility] Service Area Work Phone: Comment on above: Once for 1 Occurrenc es starting 09/29/2023 until 09/29/2023 Immunizations Immunization Date Immunization Notes Care Provider Fa caesar 07-22-2022 influenza virus vacc ine, unspecified formulation Macario Swanson DO Work Phone: [facility] Work Phone: 07-10-2021 Seasonal trivalent influenza vaccine, adjuvanted, preservative free Moon Harper Work Phone: [facility] Work Phone: 07-07-2021 tetanus and diphther ia toxoids, adsorbed, preservative free, for adult use (5 Lf of tetanus toxoid and 2 Lf of diphtheria toxoid) Moon Wild Hoy Work Phone: [facility] 250 DO Work Phone: 12-17-2020 Moderna COVID-19 Vac cine 100 MCG/0.5ML Intramuscular Suspension Moon Torri Hoy Work Phone: [facility] 250 DO Work Phone: 11-19-2020 Moderna COVID-19 Vac cine 100 MCG/0.5ML Intramuscular Suspension Moon Harper Work Phone: [facility] 250 DO Work Phone: 08-06-2020 influenza, high dose seasonal, preservative-free Moon Harper Work Phone: [facility] 250 DO Work Phone: 06-29-2019 influenza virus vacc ine, live, attenuated, for intranasal use Bayron Rodriguez [facility] 06-29-2019 Seasonal trivalent influenza vaccine, adjuvanted, preservative free Moon Harper Work Phone: [facility] 250 DO Work Phone: 07-18-2018 Seasonal trivalent influenza vaccine, adjuvanted, preservative free Moon Wild Hoy Work Phone: [facility] 250 DO Work Phone: 07-21-2017 influenza, injectabl e, quadrivalent, preservative free Moon M Hoy Work Phone: [facility] 250 DO Work Phone: 11-17-2016 influenza, injectabl e, quadrivalent, preservative free Moon M Hoy [facility] DO Work Phone: 11-17-2016 pneumococcal conjuga te vaccine, 13 valent Moon M Hoy Work Phone: [facility] DO Work Phone: 07-20-2016 influenza, high dose seasonal, preservative-free Moon M Hoy Work Phone: [facility] DO Work Phone: 07-21-2015 influenza, high dose seasonal, preservative-free Moon M Hoy Work Phone: [facility] DO Work Phone: 07-18-2015 pneumococcal polysaccharide vaccine, 23 valent Moon M Hoy Work Phone: [facility] DO Work Phone: 10-24-2007 zoster vaccine, live Moon M Hoy Work Phone: [facility] DO Work Phone: Payers Date Payer Category Payer Medicare supplementa l policy (as second payer) [facility] [id number] 2022 Unknown 2022 Self-pay [id number] 2002 Medicare [id number] 1959 Medicare [id number] 2.16.840.1.220020.19 1959 Unknown [id number] 1937 Unknown [id number] 2.16.840.1.250148.3.579. 2.593 1937 Unknown [id number] 2.16.840.1.385149.3.579. 2.593 1937 Unknown [id number] 2.16.840.1.103791.3.579. 2.593 1937 Unknown [id number] 2.840.1.069858.3.579. 2.593 1937 Unknown [id number] 2.16.840.1.656411.3.579. 2.593 1937 Unknown [id number] 2.16.840.1.965556.3.579. 2.593 1937 Unknown [id number] 2.16.840.1.223470.3.579. 2.593 1937 Unknown [id number] 2.840.1.208318.3.579. 2.593 1937 Unknown [id number] 2.16.840.1.501272.3.579. 2.593 1937 Unknown [id number] 2.16.840.1.847216.3.579. 2.356 1937 Unknown [id number] 2.16.840.1.459370.3.579. 2.356 1937 Unknown [id number] 2.16.840.1.553005.3.579. 2.356 1937 Unknown [id number] 2.16.840.1.525474.3.579. 2.356 1937 Unknown [id number] 2.840.1.927763.3.579. 2.356 1937 Unknown [id number] 2.840.1.853341.3.579. 2.356 1937 Unknown [id number] 2.840.1.705469.3.579. 2.356 1937 Unknown [id number] 2.840.1.482464.3.579. 2.356 1937 Unknown [id number] 2.840.1.803311.3.579. 2.356 1937 Unknown [id number] 2.840.1.470362.3.579. 2.356 1937 Unknown [id number] 2.840.1.605867.3.579. 2.356 1937 Unknown [id number] 2.840.1.188118.3.579. 2.356 1937 Unknown [id number] 2.840.1.313795.3.579. 2.1244 1937 Unknown [id number] 2.840.1.572774.3.579. 2.1246 Unknown [id number] 2.840.1.625158.19 Unknown [id number] 2.840.1.667467.3.579. 2.531 Unknown [id number] 2.840.1.882198.3.579. 2.531 Unknown [id number] 2.840.1.824194.3.579. 2.531 Unknown [id number] 2.840.1.521406.3.579. 2.531 Unknown [id number] 2.840.1.356325.3.579. 2.531 Unknown [id number] 2.16.840.1.681506.3.579. 2.531 Unknown [id number] 2.16.840.1.377100.3.579. 2.531 Unknown [id number] 2.16.840.1.933897.3.579. 2.531 Unknown [id number] 2.16.840.1.348189.3.579. 2.531 Unknown [id number] 2.16.840.1.800554.3.579. 2.531 Social History Date Type Detail Facility Start: 08-11-2023 End: 08-10-2024 No alcohol use No alcohol use -[facility] 250 DO Work Phone: Comment on above: coffee daily; Quit smoking 20 year s ago; Start: 02-05-2020 End: 08-11-2023 Tobacco smoking status Ex-smoker (finding) [facility] Comment on above: Quit smoking in 1983 Tobacco smoking status Never [facility] Comment on above: Quit smoking in 1983 Start: 08-11-2023 End: 08-10-2024 Sex Assigned At Male [facility] [employer] Other Start: 1935 Sex Assigned At Male F [facility] End: 10-18-1984 History of tobacco use Current smoker [facility] Work Phone: End: 10-18-1984 History of tobacco use Pipe Smoker [facility] Work Phone: Start: 08-11-2023 Tobacco use and exposure Smokeless tobacco non-user [facility] Work Phone: Start: 08-11-2023 End: 08-10-2024 Alcohol intake Lifetime non-drinker (finding) [facility] Work Phone: Start: 08-11-2023 Alcohol Comment [facility]oholic [facility] Work Phone: Start: 1935 Sex Assigned At Not on file [facility] Work Phone: Start: 08-01-2023 End: 08-10-2024 Exposure to SARS-CoV-2 (event) Not sure [facility] Medical Equipment Procedure Code Equipment Code Equipment Origin al Text Equipment Identifier Dates Drug-eluting coronary artery stent, anx-hsdszhsyopxzk-rd lymer-coated ()[id number] FDA Start: 04-11-2022 Drug-eluting coronary artery stent, xmf-ucsgduwgdrggc-uk lymer-coated ()[id number] FDA Start: 04-11-2022 Goals Date Patient Goal Desired Activity /State Functional Status Date Assessment Result Facility 05-08-2022 Functional status Patient at Baseline [facility] Work Phone: 05-07-2022 Functional status Patient at Baseline [facility] Work Phone: 04-12-2022 Functional status Patient at Baseline [facility] Work Phone: Mental Status Date Assessment Result Facility 05-08-2022 Cognitive function Cognitive Sta tus Patient at Baseline [facility] Work Phone: 05-07-2022 Cognitive function Cognitive Sta tus Patient at Baseline [facility] Work Phone: 04-12-2022 Cognitive function Cognitive Sta tus Patient at Baseline [facility] Work Phone: Clinical Notes 05-03-2019 to 08-10-2024 Macario Swanson, - 08/10/2024 11:20 AM EDTPatient InstructionsMacario Swanson, - 08/11/2023 11:20 AM EDTPatient Instructions Note Date & Type Note Facility 08-10-2024 History of Present illness Narrative Subjective Macario Ash is a 89 y.o. male Chief Complaint Annual Exam Healthy 89-year-old lal returns for follow-up and is doing extremely well. He denies any cardiovascular events or complaints or nitrate usage or hospitalizations. He is quite hypertensive today at 174/80 on my recheck. 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 At the time he had second-degree AV block and paroxysmal atrial fibrillation that completely normalized. Loop recorder was placed at the time, he has had no subsequent arrhythmic issues upon further review He remains overweight but again very active and he remains hypertensive and professes that he is normotensive at home Recommendations: Follow-up with blood pressure check in 8 to 10 weeks and bring in his home monitoring device, continue current therapies follow-up in 1 year otherwise, make appropriate adjustments at time of BP measurement follow-up. Review of Systems All other systems reviewed and are negative. Vitals: 08/10/24 1152 08/10/24 1232 BP: (!) 160/100 174/80 BP Location: Left arm Left arm Patient Position: Sitting Sitting Pulse: 60 Weight: 102 kg (225 lb 3.2 oz) Height: 1.816 m (5' 11.5 ) Objective Physical Exam Constitutional: Appearance: Normal appearance. HENT: Nose: Nose normal. Neck: Vascular: No carotid bruit. Cardiovascular: Rate and Rhythm: Normal rate. Pulses: Normal pulses. Heart sounds: Normal heart sounds. Pulmonary: Effort: Pulmonary effort is normal. Abdominal: General: Bowel sounds are normal. Palpations: Abdomen is soft. Musculoskeletal: General: Normal range of motion. Cervical back: Normal range of motion. Right lower leg: No edema. Left lower leg: No edema. Skin: General: Skin is warm and dry. Neurological: General: No focal deficit present. Mental Status: He is alert. Psychiatric: Mood and Affect: Mood normal. Behavior: Behavior normal. Thought Content: Thought content normal. Judgment: Judgment normal. Allergies Ciprofloxacin and Penicillins Current Medications Current Outpatient Medications: acetaminophen (Tylenol Extra Strength) 500 mg tablet, TAKE 1 TABLET EVERY 4 TO 6 HOURS NEEDED., Disp: , Rfl: aspirin 81 mg EC tablet, Take 1 tablet (81 mg) by mouth once daily., Disp: , Rfl: atorvastatin (Lipitor) 40 mg tablet, Take 1 tablet (40 mg) by mouth once daily at bedtime., Disp: 90 tablet, Rfl: 3 celecoxib (CeleBREX) 200 mg capsule, Take 1 [...] , Rfl: furosemide (Lasix) 20 mg tablet, TAKE 1 TABLET BY MOUTH DAILY, Disp: 90 tablet, Rfl: 3 lactobacillus acidophilus (Florajen Acidophilus) capsule, Take 1 capsule by mouth once daily., Disp: , Rfl: metoprolol succinate XL (Toprol-XL) 25 mg 24 hr tablet, Take 0.5 tablets (12.5 mg) by mouth once daily., Disp: 45 tablet, Rfl: 3 nitroglycerin (Nitrostat) 0.4 mg SL tablet, Place 1 tablet (0.4 mg) under the tongue every 5 minutes if needed for chest pain., Disp: , Rfl: omeprazole (PriLOSEC) [address] capsule, Take 1 capsule (20 mg) by mouth once daily. (Patient taking differently: Take 1 capsule (20 mg) by mouth 2 times a day.), Disp: , Rfl: sucralfate (Carafate) 1 gram tablet, Take 1 tablet (1 g) by mouth once daily. (Patient taking differently: Take 1 tablet (1 g) by mouth 4 times a day.), Disp: 90 tablet, Rfl: 3 triamcinolone (Kenalog) 0.1 % cream, USE DIRECTED., Disp: , Rfl: valsartan (Diovan) 320 mg tablet, Take 1 tablet (320 mg) by mouth once daily., Disp: 90 tablet, Rfl: 0 Assessment/Plan 1. 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 Atrial fibrillation, unspecified type (Multi) Follow Up In Cardiology 3. Implantable loop recorder present 4. Benign essential hypertension 5. History of percutaneous coronary intervention 6. History of PA (myocardial infarction) 7. Former smoker 8. BMI 30.0-30.9,adult Scribe Attestation By signing my name below, I, Coby Treviño RN , Scribe attest that this documentation has been prepared under the direction and in the presence of Macario Swanson DO. Provider Attestation - Scribe documentation All medical record entries made by the Scribe were at my direction and personally dictated by me. I have reviewed the chart and agree that the record accurately reflects my personal performance of the history, physical exam, discussion and plan. documented in this encounter [facility] Work Phone: 08-10-2024 Instructions Coby Nunn RN - 08/10/2024 11:20 AM EDT Please bring all medicines, vitamins, and herbal supplements with you when you come to the office. Prescriptions will not be filled unless you are compliant with your follow up appointments or have a follow up appointment scheduled as per instruction of your physician. Refills should be requested at the time of your visit. BMI was above normal measurement. Current weight: 102 kg (225 lb 3.2 oz) Weight change since last visit (-) denotes wt loss 0.2 lbs Weight loss needed to achieve BMI 25: 43.8 Lbs Weight loss needed to achieve BMI 30: 7.5 Lbs Provided instructions on dietary changes Provided instructions on exercise. documented in this encounter [facility] Work Phone: 08-11-2023 History of Present illness Narrative Subjective [...] discontinued (had transient A-fib during his inferior PA April 2022) We reviewed all his medications, [...] type (CMS/HCC) 2. 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 Benign essential hypertension 4. History of PA (myocardial infarction) 5. Mixed hyperlipidemia 6. Implantable loop recorder present 7. Stenosis of carotid artery, unspecified laterality 8. Carotid atherosclerosis, unspecified laterality documented in this encounter [facility] Work Phone: 08-11-2023 Instructions Morenita Mcneil CMA [...] of your visit. documented in this encounter [facility] Work Phone: 08-04-2022 Note CONSULTATION CONSULTATION DATE: [...] 100 mg b.i.d., we will maintain. [facility] 05-08-2022 Consult note Note Date/Time May 08, 2022 11:45am [facility] [address] [place] [address] Cardiology Consult Note Signed Patient: Macario Ash MR#: [id number] : 1935 Acct:[id number] Age/Sex: 87 / M Adm Date: 2 Loc: Room: [address] [place] [address] Type : ADM INOo Attending Dr: Lidia [...] episodes. He does follow with electrophysiology at [facility] and had a loop recorder [...] 05/08/22 11:21 05/08/22 11:21 05/08/22 11:21 05/08/22 11:05/08/22 11:21 Const General: cooperative, [...] x10E3/uL Lymph # (Auto) 1.6 (1.00-4.8) x10E3/uL [place] # (Auto) 0.6 (0.0-0.8) x10E3/uL Eos # [...] Code(s): I25.10 - Atherosclerotic heart disease of cahto coronary artery without angina pectoris (6) Recent inferior myocardial infarction: Documented By: Rowena Swanson DO 05/08/22 1134 Signed By: <Electronically signed by Rowena Swanson DO> 05/08/22 1145 [facility] Work Phone: 1(547) 624-417807-21-2022 History and physical note Author Lidia Borja [facility] May 07, 2022 2:49pm Note Date/Time May 07, 2022 2:43 pm [facility] [address] [place] [address] Hospitalist H&P Signed Patient: Macario Ash MR#: [id number] : 1935 Acct:[id number] Age/Sex: 87 / M Adm Date: 2 Loc: 3T Room: [address] [place] [address] Type : ADM IN Attending Dr: Lidia Borja MD Copies to: MD Lidia Roberto MD~ HPI DATE OF EXAMINATION: 05/07/22 CHIEF COMPLAINT: Shortness of breath and generalized weakness. HISTORY OF PRESENT ILLNESS: Patient is a pleasant 87-year-old male with past medical history of hypertension, peptic ulcer with recent hospitalization for acute inferior ST elevated PA on 04/11/2022 for which he underwent cardiac [...] similar feeling he had on his previous PA which made him come to the emergency [...] negative unless noted below or in HPI [facility] for [facility]-19?: Yes Medical History (Updated [...] % (Auto) 23.2 % (.) 05/07/22 11:24 [place] % (Auto) 8.6 % (.) 05/07/22 11:24 Eos % (Auto) 1.3 % (.) 05/07/22 11:24 Baso % (Auto) 1.5 % (.) 05/07/22 11:24 Neut # (Auto) 4.6 x10E3/uL (1.8-7.7) 05/07/22 11:24 Lymph # (Auto) 1.6 x10E3/uL (1.00-4.8) 05/07/22 11:24 [place] # (Auto) 0.6 x10E3/uL (0.0-0.8) 05/07/22 11:24 [...] <Electronically signed by Lidia Borja MD> 05/07/22 9766 [facility] Work Phone: 1(806) 867-665506-17-2022 Evaluation note* Encounter Date Diagnosis Assessment Notes [...] Other [facility] home care material was printed [employer] Other 04-22-2022 NoteHOSPITAL REGULATIONS: All Positive and [...] basis. Bayron Rodriguez M.D. lr Dictated: 02/05/2022 [id number] Transcribed: 02/06/2022 cc:Moon Harper M.D.[facility] HospitalComment on above:Result Comment: Electronically Signed By: Jennifer GAUTAM, Bayron\.br\Date and Time Signed: 02/06/22 15:57 [id number] History of Present illness Narrative* 86-year-old male with history of hypertension, atherosclerosis with recent episode of syncope beingreferred from primary care physician and vascular/wind turbine machinist for further evaluation management of syncope and [...] his initial evaluation appropriately with a 7-day power regulator and an echocardiogram. Patient also underwent a [...] were discontinued however statin has been kept. YT-Rgejhrhhzh-Hybhnc 100 DO Work Phone: 1(915) 551-348103-25-2022 NotePre-procedure Verification and Time Out: Pre-Procedure Verification and Time Out: Procedure Locationprocedure area [facility] - Pre-procedure Verificationcompleted TIME OUT - Final Verificationcompleted immediately prior to procedure start DEBRIEFcompleted General Information: Anesthesia Critical Care: Non-Anesthesia Date/Time of Procedure: 09-Jan-2022 10:00 Post-Procedure Diagnosis: s/p ILR Implant Procedure Name: Implantable loop recorder implantation Findings: grossly normal anatomy Procedure performed by: [place] Licensed Tax Consultant(s): none Estimated Blood Loss (mL): none Specimen: [...] paired to home use. Serial #: [id number] R wave: 0.37 mV P wave: Present Summary: - s/p ILR Implantation Patient Instructions: - No showering for 24hrs - Remove Bandage in 48 hours - Avoid submerging in water, swimming bath tubs etc for 2-3 days - Allow steristrips underneath to fall off naturally. - Please call our office ([phone]) if you notice any discharge or swelling around incision or fever. Tolerance: good Complications: None Electronic Signatures: Addy Alas) (Signed 09-Jan-2022 11:39) Authored: Pre-procedure Verification and Time Out, General Information, Procedure Details, Note Completion Last Updated: 09-Jan-2022 11:39 by Addy Alas)[facility] 01-09-2022 NotePre-procedure Verification and Time Out: Pre-Procedure Verification and Time Out: [facility] - Pre-procedure Verificationcompleted TIME OUT - Final Verificationcompleted immediately prior to procedure start DEBRIEFcompleted General Information: Anesthesia Critical Care: Non-Anesthesia Date/Time of Procedure: 09-Jan-2022 08:00 Post-Procedure Diagnosis: Sinus rhythm, history of syncope Procedure Name: Electrophysiological study, 3D Mapping, Arrythmia Induction attempted with isoproterenol, LA recording and pacing Findings: grossly normal anatomy Procedure performed by: [place] Licensed Tax Consultant(s): none Estimated Blood Loss (mL): none Specimen: [...] 90ms HV 61ms QRS 67ms QT 397ms NE 200ms RR 802ms Atrial activation was noted [...] Completion Last Updated: 09-Jan-2022 11:33 by Addy Alas)[facility] 01-09-2022 NoteHistory & Physical Reviewed: I have [...] Completion Last Updated: 09-Jan-2022 08:16 by Addy Alas)[facility] 01-07-2022 [id number]:127[facility]03-11-2022 NoteHOSPITAL REGULATIONS: All Positive and Important [...] repeat evaluation. Bayron Rodriguez M.D. Dictated: 12/25/2021 [id number] Transcribed: 12/26/2021 cc:Moon Harper M.D.[facility] HospitalComment on above:Result Comment: Electronically Signed By: Jennifer GAUTAM, Bayron\.br\Date and Time Signed: 12/26/21 16:18 [id number] History of Present illness Narrative* 86-year-old male with history of hypertension, atherosclerosis with recent episode of syncope beingreferred from primary care physician and vascular/wind turbine machinist for further evaluation management of syncope and [...] his initial evaluation appropriately with a 7-day power regulator and an echocardiogram. Patient also underwent a [...] were discontinued however statin has been kept. KS-Zfaofgluna-Wkjlta 100 DO Work Phone: 1(458) 136-428512-28-2021 History of Present illness Narrative* 86-year-old male with history of hypertension, atherosclerosis with recent episode of syncope beingreferred from primary care physician and vascular/wind turbine machinist for further evaluation management of syncope and [...] his initial evaluation appropriately with a 7-day power regulator and an echocardiogram. Patient also underwent a [...] were discontinued however statin has been kept. AV-Sgaokjtcbd-Hsyyz Work Phone: 1(886) 350-893912-24-2021 History of Present illness Narrative* 86-year-old male with history of hypertension, atherosclerosis with recent episode of syncope beingreferred from primary care physician and vascular/wind turbine machinist for further evaluation management of syncope and [...] his initial evaluation appropriately with a 7-day power regulator and an echocardiogram. Patient also underwent a [...] were discontinued however statin has been kept. DT-Zjgauaujjq-Pobjwnnc 320 Work Phone: 1(410) 658-224112-24-2021 History of Present illness Narrative* 86 yo WM with PMH of HTN, very active lal, who looks younger than stated age, is presenting today with his daughter, as s referral by his section maintainer Dr Swanson, for evaluation for carotid arterydisease. [...] bilat carotid stenosis. * Echocardiogram- EF 55-60% GY-Sfolsadefq-SYA [facility] [employer] Work Phone: 1(759) 683-478312-15-2021 History of Present illness Narrative* 86 yo WM with PMH of HTN, very active lal, who looks younger than stated age, is presenting today with his daughter, as s referral by his section maintainer Dr Swanson, for evaluation for carotid arterydisease. [...] bilat carotid stenosis. * Echocardiogram- EF 55-60% [facility] [employer] Work Phone: 1([phone]) 133-473912-13-2021 History of Present illness Narrative* 86 yo WM with PMH of HTN, very active lal, who looks younger than stated age, is presenting today with his daughter, as s referral by his section maintainer Dr Swanson, for evaluation for carotid arterydisease. [...] bilat carotid stenosis. * Echocardiogram- EF 55-60% IK-Ltxoghngrx-JKB Mather Gloriaili 1500 DO Work Phone: 1(154) 212-155812-06-2021 Evaluation note* Encounter Date Diagnosis Assessment Notes [...] continued work-up. This patient should see a section maintainer and a neurologist for completion of work-up for drop attacks. I will discharge him from my office. [employer] Other 12-02-2021 Evaluation note* Encounter Date Diagnosis [...] meantime the patient should refrain from driving. [employer] Other 11-03-2021 Note [id number]:127[facility] 05-03-2019 History general Narrative - Reported* Type Description Date Medical History Hearing Impaired Medical History Hypertension Medical History Hiatal Hernia Medical History Arthritis Medical History Pernicious Anemia Surgical History Colonoscopy/EGD - Dr. Albert 05/03/2019 Surgical History Vasectomy Hospitalization History Bleeding Ulcer [employer] Other Chief complaint Narrative - Reported* MACAIRO ASH is being seen for a consultation [...] mg daily, proceed with neuro/endovascular consultation at [facility] for consideration of possible basilar artery (doubt carotid internal artery) revascularization versus continued medical therapy. I would recommend allowing mean arterial blood pressure/systolic pressure to run higher in order for better cerebral perfusion. We will follow-up in the next 3 months [facility] 250 DO Work Phone: Chief complaint Narrative - Reported* MACARIO ASH is being seen for a cardiovascular evaluation. * MACARIO ASH is being seen for carotid stenosis. [facility] [employer] 1500 DO Work Phone: chief complaint Narrative - ReportedMACARIO ASH is being seen for a consultation for dizziness and Near syncope. [facility] 320 Work Phone: chiug complaint Narrative - Reported* MACARIO ASH is being seen for a cardiovascular evaluation. * MACARIO ASH is being seen for carotid stenosis. [facility] Work Phone: Chinb complaint Narrative - Reported* MACARIO ASH is being seen for a cardiovascular evaluation. * MACARIO ASH is being seen for carotid stenosis. [facility] [employer] [facility] 1500 DO Work Phone: chief complaint Narrative - Reported* Patient is an 87-year-old active lal who returns following recent inferior ST elevation PA for transitional care management visit. He underwent [...] well, c ontinue with clopidogrel and Eliquis. -[facility] 250 DO Work Phone: Discharge summary Author Lidia Borja [facility] May 08, 2022 2:18pm Note Date/Time May 08, 2022 2:18 pm [facility] [address] [place], [place] [id number] Discharge Summary Signed Patient: Macario Ash MR#: [id number] : 1935 Acct:[id number] Age/Sex: 87 / M Adm Date: 2 Loc: Room: [address] [place] [address]: Lidia Borja MD Copies to: [...] signed by Lidia Borja MD> 05/08/22 1418 [facility] Work Phone: Evaluation + Plan note No data available for this section [facility]* Diagnosis Onset Date Resolution Status Essential hypertension acute Hyperlipidemia acute 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 acute Chest pain acute Hyperlipidemia acute Hypertension acute Shortness of breath acute Stented coronary artery acut e [facility] Work Phone: Evaluation note* Diagnosis [...] artery acut e Syncope acute [facility] Work Phone: Evaluation noteNo assessment information available [facility] Work Phone: Evaluation note* Diagnosis Atrial fibrillation, unspecified type (CMS/HCC) 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 Benign essential hypertension Essential hypertension, benign History of PA (myocardial infarction) 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 Implantable loop recorder present Stenosis of carotid artery, unspecified laterality Carotid atherosclerosis, unspecified laterality Bilateral carotid bruits documented in this encounter [facility] Work Phone: Evaluation note* Diagnosis Atrial fibrillation, unspecified type (CMS/HCC) 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 Benign essential hypertension Essential hypertension, benign Stenosis of carotid artery, unspecified laterality Carotid atherosclerosis, unspecified laterality Bilateral carotid bruits documented in this encounter [facility] Work Phone: Evaluation note* Diagnosis 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 Atrial fibrillation, unspecified type (Multi) Implantable loop recorder present Benign essential hypertension Essential hypertension, benign History of percutaneous coronary intervention History of PA (myocardial infarction) Old myocardial infarction Former smoker Personal history of tobacco use, presenting hazards to health BMI 30.0-30.9,adult documented in this encounter [facility] Work Phone: History and physical note Author Lidia Borja [facility] May 07, 2022 2:49pm Note Date/Time May 07, 2022 2:43 pm [facility] [address] [place] [address] Hospitalist H&P Signed Patient: Macario Ash MR#: [id number] : 1935 Acct:[id number] Age/Sex: 87 / M Adm Date: 2 Loc: Room: [address] [place] [address] Type : ADM IN Attending Dr: Lidia Borja MD Copies to: MD Lidia Roberto MD~ HPI DATE OF EXAMINATION: 05/07/22 CHIEF COMPLAINT: Shortness of breath and generalized weakness. HISTORY OF PRESENT ILLNESS: Patient is a pleasant 87-year-old male with past medical history of hypertension, peptic ulcer with recent hospitalization for acute inferior ST elevated PA on 04/11/2022 for which he underwent cardiac [...] similar feeling he had on his previous PA which made him come to the emergency [...] negative unless noted below or in HPI [facility] Vaccinated for COVID-19?: Yes Medical History (Updated [...] % (Auto) 23.2 % (.) 05/07/22 11:24 [place] % (Auto) 8.6 % (.) 05/07/22 11:24 Eos % (Auto) 1.3 % (.) 05/07/22 11:24 Baso % (Auto) 1.5 % (.) 05/07/22 11:24 Neut # (Auto) 4.6 x10E3/uL (1.8-7.7) 05/07/22 11:24 Lymph # (Auto) 1.6 x10E3/uL (1.00-4.8) 05/07/22 11:24 [place] # (Auto) 0.6 x10E3/uL (0.0-0.8) 05/07/22 11:24 [...] Lidia Borja MD> 05/07/22 1449 [facility] Work Phone: History of Present illness Narrative* 86-year-old male with history of hypertension, atherosclerosis with recent episode of syncope beingreferred from primary care physician and vascular/wind turbine machinist for further evaluation management of syncope and [...] his initial evaluation appropriately with a 7-day power regulator and an echocardiogram. Patient also underwent a [...] were discontinued however statin has been kept. SG-Taqqfaicrk-Ineycg 100 DO Work Phone: History of Present [...] regularly. Blood pressure control has been good. [facility] Work Phone: History of Present illness [...] regularly. Blood pressure control has been good. 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 Procedures Follow Up In Cardiology Macario Swanson DO [address] [address] Macario Swanson DO 703 [facility] 2, [address] [address] Referral ID Status Reason Start Date Expiration Date V isits Requested Visits Authorized [id number] Authorized 08/11/2023 08/10/2024 1 1 * Imaging (Routine) - Pending Review Specialty Diagnoses / Procedures Referred By Paulina melton Referred To Contact Cardiology Diagnoses Atrial fibrillation, unspecified type (CMS/HCC) 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 Benign essential hypertension Stenosis of carotid artery, unspecified laterality Carotid atherosclerosis, unspecified laterality Bilateral carotid bruits Procedures Vascular US Carotid Artery Duplex Bilateral Macario Swanson DO 703 [facility] 2, [facility] [address] [place] [address] Referral ID Status Reason Start Date Expiration Date Visits Requested Visits Authorized [id number] Pending Review Perform Procedure 3 08/10/2024 1 1 [facility] Work Phone: Family History Unknown Family Member Name Dates Details Family [...] Mother(V17.49, Z82.49) Status:Active Summary Purpose Advance Directives Advance Directive Response Recorded Date/ Time Advance [...] was in April 2022. I will need [facility] device [facility] to have report sent to [facility]. 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 Fry with preserved LV function. 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 Benign essential hypertension Stenosis of carotid artery, unspecified laterality Carotid atherosclerosis, unspecified laterality Bilateral carotid bruits Procedures Vascular US Carotid Artery Duplex Bilateral Macario Swanson, 703 [facility] 2, [facility] [address] [place] [address] Referral ID Status Reason Start Date Expiration Date Visits Requested Visits Authorized [id number] Pending Review Perform Procedure 3 08/10/2024 1 1 Additional Source Comments (unrecognized sect ion and content) No Status Records FoundNo Status Records FoundNo Status Records FoundNo Status Records FoundNo Status Records FoundNo Status Records FoundNo Status Records FoundNo Status Records FoundNo Status Records Found INFORMATION SOURCE (unrecogn ized section and content) DATE CREATED AUTHOR 11/04/2021 Nokori DATE CREATED AUTHOR AUTHOR'S ORGANIZ ATION 01/13/2022 [facility] DATE CREATED AUTHOR AUTHOR'S ORGANIZ ATION 04/09/2022 [facility] DATE CREATED AUTHOR AUTHOR'S ORGANIZ ATION 12/10/2022 Nokori DATE CREATED AUTHOR AUTHOR'S ORGANIZ ATION 02/18/2023 [facility] DATE CREATED AUTHOR AUTHOR'S ORGANIZ ATION 06/29/2023 [facility] DATE CREATED AUTHOR AUTHOR'S ORGANIZ ATION 08/15/2023 [facility] DATE CREATED AUTHOR AUTHOR'S ORGANIZ ATION 11/26/2023 [facility] DATE CREATED AUTHOR AUTHOR'S ORGANIZ ATION 06/26/2024 [facility] REASON FOR VISIT (unrecogniz ed section and content) Reason Comments Follow-up 8 months Specialty Diagnoses / Procedures Referred By Contac t Referred To Contact Cardiology Diagnoses Atrial fibrillation, unspecified type (CMS/HCC) 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 Benign essential hypertension Stenosis of carotid artery, unspecified laterality Carotid atherosclerosis, unspecified laterality Bilateral carotid bruits Procedures Vascular US Carotid Artery Duplex Bilateral Macario Swanson DO [address] [facility], [facility] [address] [place] [address] Referral ID Status Reason Start Date Expiration Date Visits Requested Visits Authorized [id number] Pending Review Perform Procedure 08/10/2024 1 1 Reason Comments Annual Exam 1yr Specialty Diagnoses / Procedures Referred By Contac t Referred To Contact Cardiology Diagnoses Atrial fibrillation, unspecified type (Multi) 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 Procedures Follow Up In Cardiology Macario Swanson DO Phone: tel: fax: Macario Swanson DO Phone: tel: fax: Referral ID Status Reason Start Date Expiration Date V isits Requested Visits Authorized [id number] Authorized 08/11/2023 08/10/2024 1 1 Care Teams (unrecognized sec tion and content) Team Status: Active Member Role Status Dates Moon Harper MD Primary Care Provider Active Christ [...] Active Team Status: Active Member Role Status Dates Moon Harper MD Primary Care Provider Active Team Status: Inactive Member Role Status Dates Moon Harper MD Primary Care Provider Active Christ Ansari MD Emergency Provider Active Lidia Borja MD Admit Provider, Attending Provider Active Team Status: Inactive Member Role Status Dates Moon Harper MD Primary Care Provider Active Macario Corona MD Attending Provider Active [employer] Relationship Specialty Start Date End Date Moon Harper MD [address] [place] [address] PCP - General 10/18/99 [employer] Relationship Specialty Start Date End Date Moon Harper MD [address] [place] [address] PCP - General 10/18/99 [employer] Leader Relationship Specialty Start Date End Date Moon Harper MD [address] [place] [address] PCP - General 10/18/99 Goals (unrecognized section [...] BE BASED ON THE PRIMARY CLINICAL RECORDS. [facility] [employer] [facility]. provides no warranty or guarantee of the accuracy or completeness of information in this document.
[2024-10-26 17:32] VITALS: BP 157/78; PULSE 86; TEMP 36.8; O2SAT 96
--- NOTE | 2024-10-26 17:56 | ECG_ITS ---
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
[2024-10-26 18:24] LABS: Hematocrit 36.6 % (42.0-54.0); Hemoglobin 12.2 g/dL (14.0-18.0); Mean Corpuscular HGB Conc 33.3 g/dL (29.9-35.2); Mean Corpuscular Volume 92.9 fL (80.0-94.0); Mean Platelet Volume 10.9 fL (9.5-13.5); Platelet Count 202 10^3/uL (150-450); Red Blood Count 3.94 10^6/uL (4.70-6.10); Red Cell Distribution Width 13.1 % (11.0-15.0); White Blood Count 16.1 10^3/uL (4.0-11.0)
[2024-10-26] MEDS: 0.9 % SODIUM CHLORIDE 1,000 ML 999 ML IV (18:27)
--- NOTE | 2024-10-26 18:45 | XR_ITS ---
The [address] [address] Patient Name: JAY ASH MRN: [id number] date: 1935 Sex: M Assigned Patient Location: ER Current Patient Location: ER Accession/Order Number: [id number] Exam Date: 10/26/2024 18:31 Report Date: 10/26/2024 19:45 At the request of: SHERYL DURAN Procedure: XR acute abdomen series EXAM: OBSTRUCTION SERIES HISTORY:Weakness, diarrhea COMPARISON:Chest x-ray dated 07/01/2022 TECHNIQUE:Frontal images of the chest and abdomen are submitted. FINDINGS: There is a nonobstructive bowel gas pattern with air and feces identified throughout the colon to the level of the rectum. There is a large stool burden. No suspicious urologic opacifications are appreciated. The cardiomediastinal silhouette is not enlarged. The pulmonary vascularity is within normal limits. There is a cardiac device projecting over the left mid to lower lung field. No acute airspace disease is present in the chest. There is no costophrenic angle blunting. XR/XR acute abdomen series IMPRESSION: Large stool burden. Unremarkable plain film examination of the chest and abdomen otherwise. Electronically authenticated by: CAROLINE ALEXIS Date: 10/26/2024 19:45
[2024-10-26 18:48] LABS: Influenza Virus A Antigen Negative; Influenza Virus B Antigen Negative; Internal Control Within Normal Limits; Respiratory Syncytial Virus Not Detected (NOT DETECTE); SARS-CoV-2 Ag NEGATIVE (NEGATIVE)
[2024-10-26 18:56] LABS: Alanine Aminotransferase 14 U/L (16-63); Albumin Globulin Ratio 0.8; Albumin Level 2.5 g/dL (3.4-5.0); Alkaline Phosphatase 87 U/L (46-116); Anion Gap 14.4; Aspartate Amino Transferase 16 U/L (15-37); BUN Creatinine Ratio 15.7; Bilirubin Total 0.9 mg/dL (0.2-1.0); Calcium 8.3 mg/dL (8.5-10.1); Carbon Dioxide 23.1 mmol/L (21.0-32.0); Chloride 100 mmol/L (98-107); Estimated GFR (African America 58 (>=60 mL/min/1.73m^2); Estimated GFR (Non-African Ame 48 (>=60 mL/min/1.73m^2); Globulin 3.3 g/dL; Glucose 130 mg/dL (74-106); Potassium 3.5 mmol/L (3.5-5.1); Sodium 134 mmol/L (136-145); Total Protein 5.8 g/dL (6.4-8.2)
[2024-10-26 18:58] LABS: Lactate/Lactic Acid 1.6 mmol/L (0.4-2.0)
[2024-10-26 19:05] LABS: INR 1.21; Prothrombin Time 12.6 sec (9.0-11.6)
[2024-10-26 19:21] LABS: Lymphocytes Absolute Manual 2.57 10^3/uL (1.20-3.80); Monocytes Absolute Manual 1.93 10^3/uL (0.30-0.80); Segmented Neut Absolute Manual 11.59 10^3/uL (1.4-6.5)
[2024-10-26 20:03] LABS: Bilirubin Urine NEGATIVE (NEGATIVE); Blood Urine NEGATIVE (NEGATIVE); Clarity Urine CLEAR (CLEAR); Color Urine LT. YELLOW (YELLOW); Glucose Urine UA NEGATIVE (NEGATIVE); Ketones Urine NEGATIVE (NEGATIVE); Leukocyte Esterase Urine NEGATIVE (NEGATIVE); Nitrite Urine NEGATIVE (NEGATIVE); Protein Urine NEGATIVE (NEG/TRACE); Urobilinogen Urine 0.2 EU/dL (0.2-1.0)
--- NOTE | 2024-10-26 20:03 | ED.WEAKNESS1 ---
HPI - Weakness General Chief complaint: Weakness Stated complaint: WEAKNESS Time Seen by Provider: 10/26/24 17:20 Source: patient and family Mode of arrival: Wheelchair History of Present Illness HPI Narrative: Patient is an 89-year-old male brought to the emergency department by his granddaughter for evaluation of weakness. Patient states for the last 5 days he has had generalized bodyaches, fatigue and weakness with poor appetite in addition to diarrhea. He has had no objective fevers. He has no active complaints of pain at this time. He states when he eats he feels some discomfort in the chest although he has no active chest pain in the emergency department, no complaints of abdominal pain, nausea or vomiting. He saw his primary care provider 2 days ago for the symptoms, outpatient blood work was ordered however the patient states he felt too weak to go to the lab and have the labs drawn. He was not given any prescriptions. Family was concerned due to decreased oral intake and weakness and brought to the emergency department for evaluation. Related Data Home Medications ?Medication ?Instructions ?Recorded ?Confirmed aspirin 81 mg tablet,delayed 81 mg PO DAILY 03/30/24 10/26/24 release (Latricia Low Dose Aspirin) atorvastatin 40 mg tablet 40 mg PO DAILY 03/30/24 10/26/24 celecoxib 200 mg capsule (Celebrex) 200 mg PO DAILY 03/30/24 10/26/24 cetirizine 10 mg tablet (24Hour 5 mg PO DAILY PRN allergy symptoms 03/30/24 10/26/24 Allergy) cholecalciferol (vitamin D3) 50 50 mcg PO DAILY 03/30/24 10/26/24 mcg (2,000 unit) capsule furosemide 20 mg tablet 20 mg PO DAILY 03/30/24 10/26/24 metoprolol succinate 25 mg 12.5 mg PO DAILY 03/30/24 10/26/24 tablet,extended release 24 hr pantoprazole 40 mg tablet,delayed 40 mg PO DAILY 03/30/24 10/26/24 release valsartan 320 mg tablet 320 mg PO DAILY 03/30/24 10/26/24 L.acidophilus-B.animalis-B.longum 1 cap PO DAILY 10/26/24 10/26/24 15 billion cell capsule (Florajen Digestion) sucralfate 1 gram tablet 1 g PO 10/26/24 Previous Rx's ?Medication ?Instructions ?Recorded ondansetron 4 mg disintegrating 4 mg PO Q6H PRN nausea and 10/26/24 tablet vomiting #12 tabs Allergies Allergy/AdvReac Type Severity Reaction Status Date / Time Penicillins Allergy Mild Hives Verified 10/26/24 17:49 Review of Systems ROS Constitutional Denies: fever or chills Ears, nose, mouth, and throat Denies: throat pain or nasal congestion Cardiovascular Reports: chest pain Respiratory Reports: shortness of breath; Denies: cough Gastrointestinal Reports: diarrhea and bloating; Denies: abdominal pain, nausea or vomiting Musculoskeletal Denies: back pain or neck pain Integumentary/Breast Denies: rash Neurological Denies: headache, numbness in extremities or weakness in extremities Hematologic/Lymphatic Denies: easy bruising or easy bleeding PFSH [facility] Social History Little interest or pleasure in doing things: not at all Feeling down, depressed, or hopeless: not at all Exam Narrative Exam Narrative: Gen.: Awake, alert, in no distress Head: Normocephalic, atraumatic ENT: Moist mucous membranes Respiratory: No respiratory distress, lungs clear bilaterally Cardio: Regular rate and rhythm Gastrointestinal: Abdomen is soft, nondistended and nontender to palpation Extremities: Moves extremities equally, no injuries noted Psych: Normal mood and affect Neuro: No focal neuro deficit Skin: Warm, dry, intact Constitutional Vital Signs, click to edit/add: Last Vital Signs Temp 98.2 F 10/26/24 17:32 Pulse 86 10/26/24 17:32 Resp 16 10/26/24 17:32 BP 157/78 H 10/26/24 17:32 Pulse Ox 96 10/26/24 17:32 O2 Del Method Room Air 10/26/24 17:32 Course Vital Signs Vital signs: Vital Signs Temperature 98.2 F 10/26/24 17:32 Pulse Rate 86 10/26/24 17:32 Respiratory Rate 16 10/26/24 17:32 Blood Pressure 157/78 H 10/26/24 17:32 Pulse Oximetry 96 10/26/24 17:32 Oxygen Delivery Method Room Air 10/26/24 17:32 Temperature 98.2 F 10/26/24 17:32 Pulse Rate 86 10/26/24 17:32 Respiratory Rate 16 10/26/24 17:32 Blood Pressure 157/78 H 10/26/24 17:32 Pulse Oximetry 96 10/26/24 17:32 Oxygen Delivery Method Room Air 10/26/24 17:32 MDM - Weakness MDM Narrative Medical decision making narrative: Patient was treated with IV fluids, he is hemodynamically stable with no complaints of chest pain or shortness of breath in the emergency room. Vital signs are unremarkable, he has mild leukocytosis with no bandemia. He has a normal lactic acid, negative respiratory swabs and mild dehydration. He did not require any pain medication or nausea medication in the ER. I discussed with the patient that given his weakness, fatigue and decreased appetite, he may benefit from an observation stay for IV fluids overnight. Patient is adamant that he will not be admitted for observation. He was given a prescription for Zofran as needed. He was encouraged to increase fluids. His abdomen is soft and benign and he has no abdominal pain or vomiting. Urine specimen is unremarkable. He was encouraged to return to the emergency department if symptoms change or worsen and he can follow-up with his doctor as needed. SUPERVISED APC VISIT, PHYSICIAN ATTESTATION: Based on the medical record the care appears appropriate. ? Medical Records Attestation: I reviewed the patient's medical records. Lab Data Attestation: I reviewed the patient's lab results. Labs: Lab Results 10/26/24 10/26/24 Range/Units 18:02 18:05 WBC 16.1 H (4.0-11.0) 10^3/uL RBC 3.94 L (4.70-6.10) 10^6/uL Hgb 12.2 L (14.0-18.0) g/dL Hct 36.6 L (42.0-54.0) % MCV 92.9 (80.0-94.0) fL MCH 31.0 (25.9-34.0) pg MCHC 33.3 (29.9-35.2) g/dL RDW 13.1 (11.0-15.0) % Plt Count 202 (150-450) 10^3/uL MPV 10.9 (9.5-13.5) fL Seg Neuts % (Manual) 72.0 (43.0-75.0) Lymphocytes % (Manual) 16.0 L (20.5-60.0) % Monocytes % (Manual) 12.0 (1.7-12.0) % Eosinophils % (Manual) 0.0 L (0.9-7.0) % Basophils % (Manual) 0.0 L (0.2-2.0) % Neutrophils # (Manual) 11.59 H (1.4-6.5) 10^3/uL Lymphocytes # (Manual) 2.57 (1.20-3.80) 10^3/uL Monocytes # (Manual) 1.93 H (0.30-0.80) 10^3/uL Eosinophils # (Manual) 0.00 (0.00-0.70) 10^3/uL Basophils # (Manual) 0.00 (0.00-0.10) 10^3/uL PT 12.6 H (9.0-11.6) sec INR 1.21 Sodium 134 L (136-145) mmol/L Potassium 3.5 (3.5-5.1) mmol/L Chloride 100 (98-107) mmol/L Carbon Dioxide 23.1 (21.0-32.0) mmol/L Anion Gap 14.4 BUN 22.0 H (7.0-18.0) mg/dL Creatinine 1.40 H (0.70-1.30) mg/dL Est GFR ( Amer) 58 L (>=60 mL/min/1.73m^2) Est GFR (Non-Af Amer) 48 L (>=60 mL/min/1.73m^2) BUN/Creatinine Ratio 15.7 Glucose 130 H (74-106) mg/dL Lactate 1.6 (0.4-2.0) mmol/L Calcium 8.3 L (8.5-10.1) mg/dL Total Bilirubin 0.9 (0.2-1.0) mg/dL AST 16 (15-37) U/L ALT 14 L (16-63) U/L Alkaline Phosphatase 87 (46-116) U/L Troponin I High Sens 24.0 (4.0-76.1) pg/mL NT-Pro-B Natriuret Pep 815.0 (<=1800.0) pg/mL Total Protein 5.8 L (6.4-8.2) g/dL Albumin 2.5 L (3.4-5.0) g/dL Globulin 3.3 g/dL Albumin/Globulin Ratio 0.8 Lipase 10.0 L (16.0-77.0) U/L Influenza Type A Ag Negative Influenza Type B Ag Negative RSV Antigen Not detected (NOT DETECTE) SARS-CoV-2 Ag (CV2AG) Negative (NEGATIVE) Imaging Data Chest x-ray: Attestation: I have reviewed the pertinent imaging results. Radiologist's impression: ITS Impressions Chest/Abdomen X-ray 10/26/24 18:45 IMPRESSION: Large stool burden. Unremarkable plain film examination of the chest and abdomen otherwise. Electronically authenticated by: CAROLINE ALEXIS Date: 10/26/2024 19:45 ECG Data Attestation: I personally reviewed and interpreted this ECG as follows: (Normal sinus rhythm at a rate of [address] elevation or ectopy. EKG reviewed by attending physician) Discharge Plan Discharge Chief Complaint: Weakness Clinical Impression: Weakness, Diarrhea, Mild dehydration Patient Disposition: Home, Self-Care Time of Disposition Decision: 20:09 Condition: Good Prescriptions / Home Meds: New ondansetron 4 mg tablet,disintegrating 4 mg PO Q6H PRN (Reason: nausea and vomiting) Qty: 12 0RF No Action sucralfate 1 gram tablet 1 g PO Florajen Digestion 15 billion cell capsule 1 cap PO DAILY cholecalciferol (vitamin D3) 50 mcg (2,000 unit) capsule 50 mcg PO DAILY aspirin [Latricia Low Dose Aspirin] 81 mg tablet,delayed release (DR/EC) 81 mg PO DAILY celecoxib [Celebrex] 200 mg capsule 200 mg PO DAILY valsartan 320 mg tablet 320 mg PO DAILY furosemide 20 mg tablet 20 mg PO DAILY metoprolol succinate 25 mg tablet extended release 24 hr 12.5 mg PO DAILY atorvastatin 40 mg tablet 40 mg PO DAILY cetirizine [24Hour Allergy] 10 mg tablet 5 mg PO DAILY PRN (Reason: allergy symptoms) pantoprazole 40 mg tablet,delayed release (DR/EC) 40 mg PO DAILY Print Language: Irish Instructions: Dehydration (ED), Acute Diarrhea (ED) Referrals: Cholo Nicolas MD [Primary Care Provider] - 1 week
[2024-10-26 20:05] LABS: Urine Microscopic Indicated NO
== END 2024-10-26 20:41 | disposition home or self-care (01) ==
PROVIDERS: Physician Assistant; Emergency Provider Student in an Organized Health Care Education/Training Program; PCP Family Medicine
DX: E86.0 Dehydration (principal); R53.1 Weakness; R19.7 Diarrhea, unspecified; R52 Pain, unspecified; R14.0 Abdominal distension (gaseous)
CPT/HCPCS: 36415; 74022; 80053; 81003; 83605; 83690; 83880; 84484; 85007; 85027; 85610; 87420; 87804; 87811; 93005; 96360; 99285

== ENCOUNTER 2024-10-27 12:17 | Emergency (ER) | payer MEDICARE, SELFPAY ==
[2024-10-27 12:19] VITALS: BP 143/67; PULSE 70; TEMP 36.7; O2SAT 97; BMI 30.3
[2024-10-27] MEDS: 0.9 % SODIUM CHLORIDE 500 ML IV (13:25)
[2024-10-27 13:31] LABS: Hematocrit 35.4 % (42.0-54.0); Hemoglobin 11.9 g/dL (14.0-18.0); Mean Corpuscular HGB Conc 33.6 g/dL (29.9-35.2); Mean Corpuscular Hemoglobin 30.9 pg (25.9-34.0); Mean Corpuscular Volume 91.9 fL (80.0-94.0); Mean Platelet Volume 10.6 fL (9.5-13.5); Platelet Count 212 10^3/uL (150-450); Red Blood Count 3.85 10^6/uL (4.70-6.10); Red Cell Distribution Width 13.1 % (11.0-15.0); White Blood Count 14.3 10^3/uL (4.0-11.0)
[2024-10-27 13:52] LABS: Basophils Abs Manual 0.14 10^3/uL (0.00-0.10); Eosinophils Absolute Manual 0.14 10^3/uL (0.00-0.70); Lymphocytes Absolute Manual 2.14 10^3/uL (1.20-3.80); Monocytes Absolute Manual 1.85 10^3/uL (0.30-0.80); Segmented Neut Absolute Manual 10.01 10^3/uL (1.4-6.5)
[2024-10-27 13:55] LABS: Alanine Aminotransferase 15 U/L (16-63); Albumin Globulin Ratio 0.8; Albumin Level 2.4 g/dL (3.4-5.0); Alkaline Phosphatase 88 U/L (46-116); Anion Gap 11.9; Aspartate Amino Transferase 17 U/L (15-37); BUN Creatinine Ratio 12.4; Bilirubin Total 0.9 mg/dL (0.2-1.0); Calcium 8.1 mg/dL (8.5-10.1); Carbon Dioxide 26.7 mmol/L (21.0-32.0); Chloride 101 mmol/L (98-107); Estimated GFR (African America 56 (>=60 mL/min/1.73m^2); Estimated GFR (Non-African Ame 46 (>=60 mL/min/1.73m^2); Globulin 3.1 g/dL; Glucose 112 mg/dL (74-106); Lactate/Lactic Acid 1.3 mmol/L (0.4-2.0); Lipase <10.0 U/L (16.0-77.0); Potassium 3.6 mmol/L (3.5-5.1); Sodium 136 mmol/L (136-145); Total Protein 5.5 g/dL (6.4-8.2); Troponin I High Sensitivity 24.6 pg/mL (4.0-76.1)
--- NOTE | 2024-10-27 14:04 | ED.GENADUL1 ---
HPI HPI - General Adult General Chief complaint: Nausea/Vomiting/Diarrhea Stated complaint: DEHYDRATED DIARRHEA Time Seen by Provider: 10/27/24 12:59 Source: patient Mode of arrival: walk-in History of Present Illness HPI narrative: Patient is a 89-year-old male who is presenting to the ER today with reevaluation of not eating in the past 2 or 3 days, generalized weakness, and diarrhea for the past 2 or 3 days intermittently. Patient has no headache or neck pain. No chest pain or shortness of breath. Patient has no abdominal pain, nausea or vomiting. Patient has no abdominal cramping. Patient has no urinary frequency urgency or burning. Patient is slightly lightheaded, but not dizzy, no vertigo. Patient was here yesterday. They talked about admitting patient to the hospital last night, patient wanted to go home to take care of his . Patient was in the ER yesterday and had thorough evaluation and workup yesterday. No sick contacts. Patient daughter at bedside, All systems are negative except as noted/marked. All systems reviewed and otherwise negative. Nurses note and vital signs reviewed and patient is not hypoxic. Patient is very jovial, very talkative. General: The patient appears well and in no apparent distress. Patient is resting comfortably on cart. Patient is not toxic, lethargic, or listless Skin: Warm, dry, no pallor noted. There is no rash noted. No petechiae, purpura. Head: Normocephalic, atraumatic Eye: Normal conjunctiva, no drainage, EOMI. PERRL Ears, Nose, Mouth, and Throat: oral mucosa is slightly dry. Nares patent. Mouth without vesicles. Cardiovascular: Regular Rate and Rhythm, no murmur, gallop, rub Respiratory: Patient is in no distress, no accessory muscle use, lungs are clear to auscultation, no wheezing, rales or rhonchi Back: non-tender, no CVA tenderness bilaterally to percussion. No CT LS midline pain GI: Obese, soft, no tenderness to palpation, no masses appreciated. No rebound, guarding, or rigidity noted. No distention Musculoskeletal: Patient has full range of motion of all of the extremities, no motor, sensory, or focal neurological deficits Neurological: A&O x4, normal speech Psychiatric: Cooperative Related Data Home Medications ?Medication ?Instructions ?Recorded ?Confirmed aspirin 81 mg tablet,delayed 81 mg PO DAILY 03/30/24 10/26/24 release (Latricia Low Dose Aspirin) atorvastatin 40 mg tablet 40 mg PO DAILY 03/30/24 10/26/24 celecoxib 200 mg capsule (Celebrex) 200 mg PO DAILY 03/30/24 10/26/24 cetirizine 10 mg tablet (24Hour 5 mg PO DAILY PRN allergy symptoms 03/30/24 10/26/24 Allergy) cholecalciferol (vitamin D3) 50 50 mcg PO DAILY 03/30/24 10/26/24 mcg (2,000 unit) capsule furosemide 20 mg tablet 20 mg PO DAILY 03/30/24 10/26/24 metoprolol succinate 25 mg 12.5 mg PO DAILY 03/30/24 10/26/24 tablet,extended release 24 hr pantoprazole 40 mg tablet,delayed 40 mg PO DAILY 03/30/24 10/26/24 release valsartan 320 mg tablet 320 mg PO DAILY 03/30/24 10/26/24 L.acidophilus-B.animalis-B.longum 1 cap PO DAILY 10/26/24 10/26/24 15 billion cell capsule (Florajen Digestion) sucralfate 1 gram tablet 1 g PO 10/26/24 Previous Rx's ?Medication ?Instructions ?Recorded ondansetron 4 mg disintegrating 4 mg PO Q6H PRN nausea and 10/26/24 tablet vomiting #12 tabs Allergies Allergy/AdvReac Type Severity Reaction Status Date / Time Penicillins Allergy Mild Hives Verified 10/26/24 17:49 Opioid HPI Opioid Management Most Recent Opioid Data: Last Pain Scale 2 03/30/24 17:40 03/30/24 [facility] Social History Little interest or pleasure in doing things: not at all Feeling down, depressed, or hopeless: not at all Exam Constitutional Vital Signs, click to edit/add: Last Vital Signs Temp 98.1 F 10/27/24 12:19 Pulse 70 10/27/24 12:19 Resp 18 10/27/24 12:19 BP 143/67 H 10/27/24 12:19 Pulse Ox 97 10/27/24 12:19 O2 Del Method Room Air 10/27/24 12:19 Course Vital Signs Vital signs: Vital Signs Temperature 98.1 F 10/27/24 12:19 Pulse Rate 70 10/27/24 12:19 Respiratory Rate 18 10/27/24 12:19 Blood Pressure 143/67 H 10/27/24 12:19 Pulse Oximetry 97 10/27/24 12:19 Oxygen Delivery Method Room Air 10/27/24 12:19 Temperature 98.1 F 10/27/24 12:19 Pulse Rate 70 10/27/24 12:19 Respiratory Rate 18 10/27/24 12:19 Blood Pressure 143/67 H 10/27/24 12:19 Pulse Oximetry 97 10/27/24 12:19 Oxygen Delivery Method Room Air 10/27/24 12:19 Medical Decision Making MDM Narrative Medical decision making narrative: Patient was given 1 L of IV fluids. Patient's lab work is improved compared to yesterday. Patient white blood cell count was 16-14. Patient feels better after 1 L of IV fluid. Patient wants to go home. Patient is aware that if he does not eat for the next several days, to make sure that he is drinking Gatorade, Powerade, and hydrating appropriately which it appears that he is. Patient will follow-up with Dr. Nicolas next week. No question at discharge. Lab Data Labs: Lab Results 10/27/24 Range/Units 13:22 WBC 14.3 H (4.0-11.0) 10^3/uL RBC 3.85 L (4.70-6.10) 10^6/uL Hgb 11.9 L (14.0-18.0) g/dL Hct 35.4 L (42.0-54.0) % MCV 91.9 (80.0-94.0) fL MCH 30.9 (25.9-34.0) pg MCHC 33.6 (29.9-35.2) g/dL RDW 13.1 (11.0-15.0) % Plt Count 212 (150-450) 10^3/uL MPV 10.6 (9.5-13.5) fL Seg Neuts % (Manual) 70.0 (43.0-75.0) Lymphocytes % (Manual) 15.0 L (20.5-60.0) % Monocytes % (Manual) 13.0 H (1.7-12.0) % Eosinophils % (Manual) 1.0 (0.9-7.0) % Basophils % (Manual) 1.0 (0.2-2.0) % Neutrophils # (Manual) 10.01 H (1.4-6.5) 10^3/uL Lymphocytes # (Manual) 2.14 (1.20-3.80) 10^3/uL Monocytes # (Manual) 1.85 H (0.30-0.80) 10^3/uL Eosinophils # (Manual) 0.14 (0.00-0.70) 10^3/uL Basophils # (Manual) 0.14 H (0.00-0.10) 10^3/uL Sodium 136 (136-145) mmol/L Potassium 3.6 (3.5-5.1) mmol/L Chloride 101 (98-107) mmol/L Carbon Dioxide 26.7 (21.0-32.0) mmol/L Anion Gap 11.9 BUN 18.0 (7.0-18.0) mg/dL Creatinine 1.45 H (0.70-1.30) mg/dL Est GFR ( Amer) 56 L (>=60 mL/min/1.73m^2) Est GFR (Non-Af Amer) 46 L (>=60 mL/min/1.73m^2) BUN/Creatinine Ratio 12.4 Glucose 112 H (74-106) mg/dL Lactate 1.3 (0.4-2.0) mmol/L Calcium 8.1 L (8.5-10.1) mg/dL Total Bilirubin 0.9 (0.2-1.0) mg/dL AST 17 (15-37) U/L ALT 15 L (16-63) U/L Alkaline Phosphatase 88 (46-116) U/L Troponin I High Sens 24.6 (4.0-76.1) pg/mL Total Protein 5.5 L (6.4-8.2) g/dL Albumin 2.4 L (3.4-5.0) g/dL Globulin 3.1 g/dL Albumin/Globulin Ratio 0.8 Lipase <10.0 L (16.0-77.0) U/L Discharge Plan Discharge Chief Complaint: Nausea/Vomiting/Diarrhea Clinical Impression: Diarrhea, Weakness Patient Disposition: Home, Self-Care Time of Disposition Decision: 14:13 Condition: Fair Prescriptions / Home Meds: No Action sucralfate 1 gram tablet 1 g PO Florajen Digestion 15 billion cell capsule 1 cap PO DAILY ondansetron 4 mg tablet,disintegrating 4 mg PO Q6H PRN (Reason: nausea and vomiting) Qty: 12 0RF cholecalciferol (vitamin D3) 50 mcg (2,000 unit) capsule 50 mcg PO DAILY aspirin [Latricia Low Dose Aspirin] 81 mg tablet,delayed release (DR/EC) 81 mg PO DAILY celecoxib [Celebrex] 200 mg capsule 200 mg PO DAILY valsartan 320 mg tablet 320 mg PO DAILY furosemide 20 mg tablet 20 mg PO DAILY metoprolol succinate 25 mg tablet extended release 24 hr 12.5 mg PO DAILY atorvastatin 40 mg tablet 40 mg PO DAILY cetirizine [24Hour Allergy] 10 mg tablet 5 mg PO DAILY PRN (Reason: allergy symptoms) pantoprazole 40 mg tablet,delayed release (DR/EC) 40 mg PO DAILY Print Language: American Instructions: Acute Diarrhea (ED), Weakness (ED) Additional Instructions: Continue to increase fluids at home, Gatorade, Powerade. Follow-up with Dr. Nicolas next week for reevaluation. Return back to the ER if needed for any other type of acute complaints, especially intractable abdominal pain, nausea or vomiting Referrals: Cholo Nicolas MD [Primary Care Provider] - 1 week
[2024-10-27 14:16] VITALS: BP 195/95; PULSE 80; O2SAT 99
[2024-10-27 14:39] VITALS: BP 175/68; PULSE 78; O2SAT 96
[2024-10-27 15:40] LABS: Bilirubin Urine NEGATIVE (NEGATIVE); Blood Urine NEGATIVE (NEGATIVE); Clarity Urine CLEAR (CLEAR); Color Urine YELLOW (YELLOW); Glucose Urine UA NEGATIVE (NEGATIVE); Ketones Urine NEGATIVE (NEGATIVE); Leukocyte Esterase Urine NEGATIVE (NEGATIVE); Nitrite Urine NEGATIVE (NEGATIVE); Protein Urine TRACE mg/dL (NEG/TRACE); Urobilinogen Urine 0.2 EU/dL (0.2-1.0)
[2024-10-27 15:49] LABS: Bacteria Urine TRACE #/HPF (NONE SEEN); Mucus Urine TRACE (NONE SEEN); RBC Urine 0-2 #/HPF (0-2); Squamous Epithelial Cell Urine RARE #/LPF (NONE/RARE); WBC Urine 0-2 #/HPF (NONE SEEN)
[2024-10-27 15:50] LABS: Cast Seen? SEEN #/LPF (NONE SEEN); Crystals Seen? None Seen #/HPF (None Seen); Hyaline Casts Urine FEW; Urine Culture Indicated NO
== END 2024-10-27 15:07 | disposition home or self-care (01) ==
PROVIDERS: Emergency Provider Emergency Medicine; PCP Family Medicine
DX: R19.7 Diarrhea, unspecified (principal); R53.1 Weakness
CPT/HCPCS: 36415; 80053; 81001; 83605; 83690; 84484; 85007; 85027; 99283

== ENCOUNTER 2025-03-23 10:01 | Outpatient (OUT) | payer MEDICARE, SELFPAY ==
--- OUTSIDE RECORDS SUMMARY | 2024-06-30 07:00 | XMS_ITS | Encounter Summary ---
Author Name [facility] Organization [facility] Address [address] [place] [address] Care Team Providers Care Commodities Trader Name Role Phone HARISH HANNA Primary Care Provider Unavailabl e Insurance Providers: All historical and current Section Date Range: From patient's date of to the date document was created. This section includes the names of all active insurance providers for the patient. Insurance Provider Type of Coverage Plan Name Start of Policy Coverage End of Policy Coverage Group Number Member ID Insurance Provider's Telephone Number Policy Heck's Name Patient's Relationship to Policy Heck [employer] MEDICARE SUPPLEMEN YANET PLAN J Apr 17, 2002 [id number] DAGG,WILL JERAD PATIENT AARP MED SUPP MEDICARE SUPPLEMEN YANET PLAN J Apr 17, 2002 PLAN J [id number] DAGG,WILL JERAD PATIENT MEDICARE (WNR) MEDICARE (M) PART B February 15, 2002 PART B [id number] DAGG,WILL JERAD PATIENT MEDICARE (WNR) MEDICARE (M) PART A February 15, 2002 PART A [id number] [phone] DAGG,WILL JERAD PATIENT MEDICARE (WNR) MEDICARE (M) PART B February 15, 2002 PART B [id number] DAGG,WILL JERAD PATIENT MEDICARE (WNR) MEDICARE (M) PART A February 15, 2002 PART A [id number] DAGG,WILL JERAD PATIENT Selected Encounter This section includes the information on record at MD for the Encounter. Date/Time Encounter Type Encounter Description Reason Provider Source Jun 30, 2024 11:00 AM OFFICE O/P EST MOD 30 MIN PRIMARY CARE/MEDICINE ICD-10-CM I10 Essential (primary) hypertension ELVIS HANNA IHE Encounter Template Text not used by MD Assessments - Encounter Diagnoses This section includes the primary and secondary diagnoses documented for the Encounter. Date/Time Primary/Secondary Diagnosis Diagnosis Name Provider Source Jul 13, 2024 11:51 AM PRIMARY Essential (primary) hypertension HARISH HANNA Jul 13, 2024 11:51 AM SECONDARY Bilateral primary osteoarthritis of knee HARISH HANNA Jul 13, 2024 11:51 AM SECONDARY Gastro-esophageal reflux disease without esophagitis HARISH HANNA Jul 13, 2024 11:51 AM SECONDARY Unspecified atrial fibrillation HARISH HANNA Plan of Treatment: Future Appointments (+ 6 months) and Future Tests (+/- 45 days) The Plan of Treatment section includes future care activities for the patient [facility] This section includes future appointments and future orders which are active, pending or scheduled. Future Appointments This section includes appointments that were scheduled to occur 6 months from the date of the Encounter, up to a maximum of 20 appointments. The data comes from all [facility]. Appointment Date/Time Appointment Type Appointme nt Facility Name Aug 02, 2024 03:30 PM AMBULATORY - NONE [facility] Sep 05, 2024 11:00 AM AMBULATORY - NONE [facility] Dec 19, 2024 02:30 PM AMBULATORY - NONE [facility] Dec 21, 2024 11:00 AM AMBULATORY - SURGERY [facility] Active, Pending, and Scheduled Orders This section includes a listing of several types of active, pending, and scheduled orders, including clinic medications orders, diagnostic test orders, procedure orders and consult orders; where the start date of the order is 45 days before the date of the Encounter or 45 days after the date of theEncounter. The data comes from all MD treatment [facility]. Test Date/Time Test Type Test Details Facility Name Jun 23, 2024 12:00 AM Laboratory - Chemi stry Order MICROALBUMIN/CREATININE RATIO PANEL URINE, RANDOM [facility] Jun 23, 2024 12:00 AM Laboratory - Chemi stry Order URINALYSIS URINE [facility] Lab Results: +/- 30 days of the encounter This section includes the Chemistry and Hematology Lab Results [facility] with [facility]. Radiology Reports and Pathology Reports are provided separately, in subsequent sections. Lab Results This section contains the Chemistry/Hematology Results that were resulted 30 days before or 30 daysafter the date of the Encounter. Date/Time Source Result Type Result - Unit Interpretation Reference Range Specimen Type Comment Jun 27, 2024 11:12 AM [facility] HEMOGLOBIN A1C BLOOD Specimen Type: BLOOD Comment: Values obtained from A1C measurements can vary. For typical A1C assays, a reported value of 7.0 could actually be between 6.72 and 7.28 if measured by a reference method. A reported value of 9.0 could actually be between 8.73 and 9.27. Ref: http://www.[email or web address] org/[email or web address] Ordering Provider: HARISH HANNA Report Released Date/Time: Jun 23, 2024 03:57 PM Reporting Lab: [address] [phone] Performing Lab: [address] [phone] HEMOGLOBIN A1C 6.5 H 3.6-5.7 Jun 27, 2024 11:12 AM [facility] PROSTATE SPECIFIC ANTIGEN SERUM Speci men Type: SERUM No comment entered. Ordering Provider: HARISH HANNA Report Released Date/Time: Jun 23, 2024 03:57 PM Reporting Lab: [address] [phone] Performing Lab: [address] [phone] PROSTATE SPECIFIC ANTIGEN 0.68 ng/mL 0-4 .00 Jun 27, 2024 11:12 AM [facility] TSH PLASMA Specimen Type: PLASMA Comment: LDL REF RANGE: OPTIMAL: <100 mg/dL BORDERLINE HIGH: 130-159 mg/dL LDL HIGH: 160-189 mg/dL VERY HIGH: >=190 TRIG REF RANGE: NORMAL <150 mg/dL BORDERLINE HIGH: 150-199 mg/dL TRIG HIGH: 200-499 mg/dL VERY HIGH: >=500 mg/dL CREA eGFR was calculated using the CKD-EPI 2020 equation. Ordering Provider: HARISH HANNA Report Released Date/Time: Jun 23, 2024 03:57 PM Reporting Lab: [address] [phone] Performing Lab: [place] [id number] TSH 1.988 u[IU]/mL 0.360-4.500 Jun 27, 2024 11:12 AM [facility] LIPID PROFILE PLASMA Specimen Type: P LASMA Comment: Values obtained from A1C measurements can vary. For typical A1C assays, a reported value of 7.0 could actually be between 6.72 and 7.28 if measured by a reference method. A reported value of 9.0 could actually be between 8.73 and 9.27. Ref: http://www.ngsp.org/CAPdata.asp Ordering Provider: HARISH HANNA Report Released Date/Time: Jun 23, 2024 03:57 PM Reporting Lab: [place] [id number] Performing Lab: [place] [id number] CHOLESTEROL 114 mg/dL 0-200 LDL CHOLESTEROL 41 mg/dL 0-100 HDL CHOLESTEROL 57 mg/dL 40-60 TRIGLYCERIDE 61 mg/dL 0-150 Jun 27, 2024 11:12 AM [facility] CBC BLOOD Specimen Type: BLOOD No comment entered. Ordering Provider: HARISH HANNA Report Released Date/Time: Jun 23, 2024 03:57 PM Reporting Lab: [place] [phone] Performing Lab: [place] [id number] WBC COUNT 7.5 10*3/uL 3.6-11.0 RBC COUNT 4.55 10*6/uL 4.47-5.83 HGB 14.1 g/dL 13.6-17.4 HCT 41.8 40.0-51.0 MCV 91.9 fL 80.0-96.0 MCH 31.0 pg 27.0-31.0 MCHC 33.7 g/dL 31.5-36.5 PLT 215 10*3/uL 150-400 LYMPHS % 26.8 21.0-51.0 MONOCYTES % 8.8 H 4.0-8.0 NUCLEATED RBC/100WBC 0.0 /100{WBCs} None Established-None Established RDW 14.2 11.2-15.8 NEUTROPHIL % 61.3 54.0-78.0 EOSINOPHIL % 2.1 0.0-3.0 BASOPHIL % 1.0 0.0-3.0 ABSOLUTE LYMPHOCYTE COUNT 2.0 10*3/uL 0. 8-5.0 ABSOLUTE NEUTROPHIL COUNT 4.6 10*3/uL 1. 9-8.6 ABSOLUTE BASOPHIL COUNT 0.1 10*3/uL 0.0- 0.3 ABSOLUTE MONOCYTE COUNT 0.7 10*3/uL 0.1- 0.9 ABSOLUTE EOSINOPHIL COUNT 0.2 10*3/uL 0. 0-0.3 MPV 9.8 fL 7.4-11.4 Jun 27, 2024 11:12 AM [facility] COMPREHENSIVE METABOLIC PANEL PLASMA S pecimen Type: PLASMA Comment: Values obtained from A1C measurements can vary. For typical A1C assays, a reported value of 7.0 could actually be between 6.72 and 7.28 if measured by a reference method. A reported value of 9.0 could actually be between 8.73 and 9.27. Ref: http://www.ngsp.org/CAPdata.asp Ordering Provider: HARISH HANNA Report Released Date/Time: Jun 23, 2024 03:57 PM Reporting Lab: [address] [phone] Performing Lab: [address] [phone] ALBUMIN 4.1 g/dL 3.2-4.6 ALKALINE PHOSPHATASE 82 U/L 46-116 ALT/SGPT 24 U/L 0-55 AST/SGOT 24 U/L 5-34 BUN 20 mg/dL 9-23 CALCIUM 9.2 mg/dL 8.5-10.1 CREATININE 1.3 mg/dL 0.7-1.3 CO2 21 mmol/L L 22-29 GLUCOSE 103 mg/dL H 74-100 PROTEIN, TOTAL 6.6 g/dL 6.4-8.3 SODIUM 135 mmol/L L 136-145 CHLORIDE 105 mmol/L 98-107 BILIRUBIN, TOTAL 0.7 mg/dL 0.2-1.2 POTASSIUM 4.8 mmol/L 3.5-5.1 ANION GAP 13.8 10-20 EGFR (CALCULATED) 53.0 mL/min Social History: Smoking Status (Most current) and Tobacco Use (All prior to encounter date) This section includes the most current, and the historical, smoking and tobacco- related health factors from the MD facility where the Encounter took place. Current Smoking Status This section includes the most current smoking, or tobacco-related health factor, from the MD facility where the Encounter took place. Date/Time Current Smoking Status Comment Facil ity Jun 30, 2024 11:00 AM VA-TOBACCO FORMER USER [facility] Tobacco Use History This section includes a history of the smoking, or tobacco-related health factors, that were collected on or before the date of the Encounter. The data comes from the MD facility where the Encounter took place. Date/Time Smoking Status/Tobacco Use Comment F acility Jun 30, 2024 11:00 AM VA-TOBACCO QUIT 15 YRS OR MORE [facility] Jun 30, 2023 10:30 AM VA-TOBACCO FORMER USER [facility] Jun 30, 2023 10:30 AM VA-TOBACCO QUIT 15 YRS OR MORE [facility] Dec 15, 2021 01:30 PM VA-TOBACCO FORMER USER [facility] Dec 15, 2021 01:30 PM VA-TOBACCO QUIT 15 YRS OR MORE [facility] May 29, 2019 10:41 AM VA-TOBACCO FORMER USER [facility] May 29, 2019 10:41 AM VA-TOBACCO QUIT 15 YRS OR MORE [facility] Jan 07, 2009 01:17 PM QUIT TOBACCO >7 YEARS AGO [facility] Jan 30, 2008 08:39 AM QUIT TOBACCO >7 YEARS AGO [facility] Jan 20, 2007 08:31 AM QUIT TOBACCO >7 YEARS AGO [facility] Jul 12, 2006 08:59 AM TOBACCO FORMER USE R MORE 12 MONTHS QUIT SMOKING 25 YEARS AGO [facility] Oct 08, 2005 09:19 AM TOBACCO FORMER USE R MORE 12 MONTHS quit '85 [facility] Dec 19, 2004 08:23 AM TOBACCO FORMER USE R MORE 12 MONTHS Quit about 20 years ago. [facility] March 04, 2004 02:45 PM TOBACCO FORMER USE R MORE 12 MONTHS QUIT IN 1981 [facility] Sep 01, 2002 08:54 AM TOBACCO FORMER USE R LESS 12 MONTHS NOT IN 20 YEARS [facility] Sep 01, 2002 08:54 AM TOBACCO FORMER USE R MORE 12 MONTHS NOT IN 20 YEARS [facility] Jan 06, 2001 09:05 AM TOBACCO FORMER USE R LESS 12 MONTHS [facility] Jan 06, 2001 09:05 AM TOBACCO FORMER USE R MORE 12 MONTHS [facility] Encounter Notes: All associated encounter notes This section contains the clinical notes associated to the Encounter. Date/Time Encounter Note(s) Provider Source Jun 30, 2024 11:00 AM INTERNAL MEDICINE OUTPATIENT NOTE: LOCAL TITLE: PRIMARY CARE OUTPATIENT NOTE (T) STANDARD TITLE: INTERNAL MEDICINE OUTPATIENT NOTE DATE OF NOTE: JUN 30, 2024@11:00 ENTRY DATE: JUN 30, 2024@11:00:32 AUTHOR: HARISH HANNA EXP COSIGNER: URGENCY: STATUS: COMPLETED In-person Note 89yo Gracey Reason for Visit: Here for follow up visit He has no complaints. 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 Active Problems PROBLEM LAST MOD PROVIDER Atrial fibrillation 07/01/2023 HARISH HANNA Exposure to potentially hazardous substance 06/30/2023 HARISH HANNA History of placement of stent for coronary 06/15/2022 HARISH HANNA artery disease CAD - Coronary artery disease 06/15/2022 HARISH HANNA Gastroesophageal reflux disease 06/09/2017 DEBORAH JETER Sensorineural hearing loss, bilateral 01/26/2017 PATEL CHASE Family History of Ischemic Heart Disease 03/25/2010 VIKY NUNN (ICD-9-CM V17.3) History of alcohol abuse 07/01/2023 HARISH HANNA Sober 30 yrs Tinnitus (SNOMED CT 88708629) 12/10/2016 DEBORAH JETER Disorder of lumbar disc 07/01/2023 HARISH HANNA Benign essential hypertension (SNOMED CT 05/25/2016 DEBORAH JETER [id number]) Osteoarthritis (SNOMED CT 776665013) 05/25/2016 DEBORAH JETER Gout 05/25/2016 DEBORAH JETER 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 HARISH HANNA REVIEW OF SYSTEMS: (denies the following unless indicated otherwise): mood concerns headache fatigue/weight loss dysphagia/hoarseness chest pain dyspnea abdominal pain difficult or bloody elimination PATIENT ALLERGIES DETAILED ALLERGIES/ADVERSE REACTIONS Type: DRUG Date/Time Reactant Severity Reaction 12/15/2021 13:36 CIPROFLOXACIN URTICARIA 12/02/1999 15:37 PENICILLIN HIVES Type: OTHER Date/Time Reactant Severity Reaction 03/06/2005 15:58 INSECT STINGS SHORTNESS OF BREATH AMRS - MEDS (REC SUCCINCT) Active and Recently Inpatient, Outpatient and Clinic Medications (including Supplies): Active Outpatient Medications Status ========= 1) CELECOXIB 200MG CAP TAKE ONE CAPSULE BY MOUTH TWICE A ACTIVE DAY (WITH FOOD) 2) CETIRIZINE HCL 10MG TAB TAKE ONE TABLET BY MOUTH ACTIVE EVERY DAY NEEDED DIRECTED FOR ALLERGIES. 3) EPI(EQV-ADRENACLICK)0.3MG/0.3ML INJCTR INJECT ACTIVE CONTENTS OF ONE AUTO-INJECTOR INTRAMUSCULARLY NEEDED FOR ALLERGIC REACTION (SEE PACKAGE INSTRUCTIONS) 4) FUROSEMIDE 20MG TAB TAKE ONE TABLET BY MOUTH EVERY ACTIVE DAY 5) OMEPRAZOLE 20MG EC CAP TAKE ONE CAPSULE BY MOUTH ACTIVE EVERY MORNING BEFORE BREAKFAST FOR STOMACH 6) UREA 10% LOTION APPLY A SUFFICIENT AMOUNT EXTERNALLY ACTIVE TWICE A DAY NEEDED TO DRY SKIN 7) VALSARTAN 320MG TAB TAKE ONE TABLET BY MOUTH EVERY ACTIVE DAY Active Non-VA Medications Status ========= 1) Non-VA ACETAMINOPHEN TAB 1000MG MOUTH THREE TIMES A ACTIVE DAY NEEDED 2) Non-VA ATORVASTATIN CALCIUM 40MG TAB 40MG MOUTH AT ACTIVE BEDTIME 3) Non-VA BETAMETHASONE DIPR 0.05%/CLOTRIMAZOLE 1% ACTIVE CREAM,TOP EXTERNALLY 4) Non-VA CAMPHOR/MENTHOL/METHYL SALICYLATE PATCH ONE ACTIVE PATCH EXTERNALLY EVERY DAY NEEDED 5) Non-VA CYANOCOBALAMIN 1000MCG/ML INJ 1ML (1000MCG) ACTIVE INTRAMUSCULARLY EVERY 4 WEEKS 6) Non-VA FAMOTIDINE TAB 10MG MOUTH EVERY DAY NEEDED ACTIVE 7) Non-VA LACTOBACILLUS ACIDOPHILUS CHEW TAB 1 TABLET BY ACTIVE MOUTH EVERY DAY 8) Non-VA METOPROLOL SUCCINATE 50MG SA TAB 50MG MOUTH ACTIVE EVERY DAY 9) Non-VA METOPROLOL TARTRATE 25MG TAB 12.5MG MOUTH ACTIVE TWICE A DAY 16 Total Medications Report Released Date/Time: Jun 27, 2024@20:54 Provider: HARISH HANNA Specimen: SERUM. [facility] 0910 [id number] Specimen Collection Date: Jun 27, 2024@11:12 Test name Result units Ref. range Site Code PROSTATE SPECIFIC ANTIGEN 0.68 ng/mL 0 - 4.00 [541] Report Released Date/Time: Jun 27, 2024@20:05 Provider: HARISH HANNA Specimen: PLASMA. [facility] 0910 [id number] Specimen Collection Date: Jun 27, 2024@11:12 Test name Result units Ref. range Site Code GLUCOSE 103 H mg/dL 74 - 100 [541] Eval: REFERENCE RANGE CHANGED FOR GLU ON 04.26.24 SODIUM 135 L mmol/L 136 - 145 [541] Eval: REFERENCE RANGE CHANGED ON 04.26.24 POTASSIUM 4.8 mmol/L 3.5 - 5.1 [541] CHLORIDE 105 mmol/L 98 - 107 [541] CO2 21 L mmol/L 22 - 29 [541] BUN 20 mg/dL 9 - 23 [541] CREATININE 1.3 mg/dL 0.7 - 1.3 [541] Eval: REFERENCE RANGES CHANGED FOR CREAT ON 04.26.24 CALCIUM 9.2 mg/dL 8.5 - 10.1 [541] EGFR (CALCULATED) 53.0 mL/min [541] Eval: eGFR results >60 are imprecise. Many variables affect the calculated Eval: result. Interpretation of eGFR results >60 must be monitored Eval: over time. ANION GAP 13.8 10 - 20 [541] AST/SGOT 24 U/L 5 - 34 [541] Eval: REFERENCE RANGE CHANGED FOR AST ON 05.12.24 ALT/SGPT 24 U/L 0 - 55 [541] Eval: REFERENCE RANGE CHANGED FOR ALT ON 05.12.24 ALKALINE PHOSPHATASE 82 U/L 46 - 116 [541] BILIRUBIN, TOTAL 0.7 mg/dL 0.2 - 1.2 [541] Eval: REFERENCE RANGE CHANGED FOR TBIL ON 04.26.24 PROTEIN, TOTAL 6.6 g/dL 6.4 - 8.3 [541] ALBUMIN 4.1 g/dL 3.2 - 4.6 [541] CHOLESTEROL 114 mg/dL 0 - 200 [541] LDL CHOLESTEROL 41 mg/dL 0 - 100 [541] HDL CHOLESTEROL 57 mg/dL 40 - 60 [541] TRIGLYCERIDE 61 mg/dL 0 - 150 [541] TSH 1.988 uIU/mL 0.360 - 4.500 [541] Comment: LDL REF RANGE: OPTIMAL: <100 mg/dL BORDERLINE HIGH: 130-159 mg/dL LDL HIGH: 160-189 mg/dL VERY HIGH: >=190 TRIG REF RANGE: NORMAL <150 mg/dL BORDERLINE HIGH: 150-199 mg/dL TRIG HIGH: 200-499 mg/dL VERY HIGH: >=500 mg/dL CREA eGFR was calculated using the CKD-EPI 2020 equation. Report Released Date/Time: Jun 27, 2024@18:26 Provider: HARISH HANNA Specimen: BLOOD. [facility] 0910 [id number] Specimen Collection Date: Jun 27, 2024@11:12 Test name Result units Ref. range Site Code HEMOGLOBIN A1C 6.5 H % 3.6 - 5.7 [541] Eval: Values obtained from A1C measurements can vary. For typical A1C assays, a Eval: reported value of 7.0 could actually be between 6.72 and 7.28 if measured Eval: by a reference method. A reported value of 9.0 could actually be between Eval: 8.73 and 9.27. Ref: https://ngsp.org/CAPdata.asp WBC COUNT 7.5 K/cmm 3.6 - 11.0 [541] RBC COUNT 4.55 M/cmm 4.47 - 5.83 [541] HGB 14.1 g/dL 13.6 - 17.4 [541] HCT 41.8 % 40.0 - 51.0 [541] MCV 91.9 fL 80.0 - 96.0 [541] MCH 31.0 pg 27.0 - 31.0 [541] MCHC 33.7 g/dL 31.5 - 36.5 [541] RDW 14.2 % 11.2 - 15.8 [541] PLT 215 K/cmm 150 - 400 [541] MPV 9.8 fL 7.4 - 11.4 [541] NEUTROPHIL % 61.3 % 54.0 - 78.0 [541] LYMPHS % 26.8 % 21.0 - 51.0 [541] MONOCYTES % 8.8 H % 4.0 - 8.0 [541] EOSINOPHIL % 2.1 % 0.0 - 3.0 [541] BASOPHIL % 1.0 % 0.0 - 3.0 [541] ABSOLUTE NEUTROPHIL COUNT 4.6 K/cmm 1.9 - 8.6 [541] ABSOLUTE LYMPHOCYTE COUNT 2.0 K/cmm 0.8 - 5.0 [541] ABSOLUTE MONOCYTE COUNT 0.7 K/cmm 0.1 - 0.9 [541] ABSOLUTE EOSINOPHIL COUNT 0.2 K/cmm 0.0 - 0.3 [541] ABSOLUTE BASOPHIL COUNT 0.1 K/cmm 0.0 - 0.3 [541] NUCLEATED RBC/100WBC 0.0 /100 WBC None Established - None Established [541] Comment: Values obtained from A1C measurements can vary. For typical A1C assays, a reported value of 7.0 could actually be between 6.72 and 7.28 if measured by a reference method. A reported value of 9.0 could actually be between 8.73 and 9.27. Ref: http://www.ngsp.org/CAPdata.asp PHYSICAL EXAM: Vital Signs: T: 97.8 F [36.6 C] (06/30/2024 10:45) P: 69 (06/30/2024 10:45) R: 16 (06/30/2024 10:45) BP: 165/81 (06/30/2024 10:49) Pain: 0 (06/30/2024 10:45) Height: 71 in [180.3 cm] (06/08/2019 09:50) Weight: 225.2 lb [102.15 kg] (06/30/2024 10:45) Pulse Ox: 96% (06/30/2024 10:45) General:uses cane Head, Ears, Eyes, Nose, and Throat: Neck:no bruit Chest/Lungs:CTA Cardiovascular:RRR Gastrointestinal: Extremities:no edema ASSESSMENT/PLAN:reviewed labs with blood sugars are creeping up, at his age will continue to monitor Atrial fib- stable, no longer taking plavix HTN- BP at goal, continue meds- lasix and valsartan GERD- has been stable, infrequent use of omeprzole osteoarthritis- using celebrex with relief HEALTH MAINTENANCE/CLINICAL REMINDERS: MEDICATION RECONCILIATION Medication Reconciliation report reviewed and discussed with patient/caregiver. VA prescription medications, non-VA prescription medications, OTC and herbal medications reviewed: Patient/caregiver verifies that the list is complete and accurate and voices understanding. Patient/caregiver in possession of printed medication list. FOLLOW-UP:1 year with labs Clinical Reminders Activity Sexual Orientation: The patient thinks of their sexual orientation as: Straight or Heterosexual I am the Staff Provider. TOTAL TIME SPENT: Spent 30 minutes in care of this patient today including review of records, exam, and placing orders. /carson/ HARISH HANNA NURSE PRACTITIONER Signed: 06/30/2024 11:36 HARISH HANNA [facility] Jun 30, 2024 10:47 AM PRIMARY CARE NURSI FERNY NOTE: LOCAL TITLE: OUTPATIENT NURSING INTAKE NOTE (T) STANDARD TITLE: PRIMARY CARE NURSING NOTE DATE OF NOTE: JUN 30, 2024@10:47 ENTRY DATE: JUN 30, 2024@10:47:12 AUTHOR: LB SMITH COSIGNER: URGENCY: STATUS: COMPLETED Hemoglobin A1C Results: Collection DT Specimen Test Name Result Units Ref Range 06/27/2024 11:12 BLOOD HEMOGLOBIN A1C 6.5 H % 3.6 - 5.7 Comment: Values obtained from A1C measurements can vary. For typical A1C Comment: assays, a reported value of 7.0 could actually be between 6.72 and Comment: 7.28 if measured by a reference method. A reported value of 9.0 Comment: could actually be between 8.73 and 9.27. Ref: Comment: http://www.ngsp.org/CAPdata.asp 11/20/2022 11:08 BLOOD HEMOGLOBIN A1C 6.0 H % 3.6 - 5.7 12/05/1999 08:21 BLOOD HEMOGLOBIN A1C 6.0 % 3 - 6.1 Review Allergies Allergies reviewed and updated per protocol. ALLERGIES/ADVERSE REACTIONS Type: DRUG Date/Time Reactant Severity Reaction 12/15/2021 13:36 CIPROFLOXACIN URTICARIA 12/02/1999 15:37 PENICILLIN HIVES Type: OTHER Date/Time Reactant Severity Reaction 03/06/2005 15:58 INSECT STINGS SHORTNESS OF BREATH New blood pressure reading was documented at this visit. 165/81 MEDICATION LIST REVIEW REPORT Patient states no change in documented OTC/Herbals at this visit. 1. Has the patient been feeling sad or distressed? No 2. Has the patient been having personal or family problems? No 3. Has the patient been experiencing worry and/or stress? No 4. Has the patient been having problems with drugs and/or alcohol? No 5. Crisis Line pocket card was provided to patient. Yes [facility] ([employer] [place], [employer]) What matters most to you? Comment: My family Clinical Reminders Activity Advance Directive Education Screen: Patient received information regarding Advance Directives: No - Patient declined information at this time. Patient states AD's are in place. Alcohol Use Screen (AUDIT-C): Alcohol Screen: SCREEN FOR ALCOHOL (AUDIT-C) An alcohol screening test (AUDIT-C) was negative (score=0). 1. How often did you have a drink containing alcohol in the past year? Consider a drink to be a 12 ounce can or bottle of regular beer, 8 ounces of malt liquor, a 5 ounce glass of table wine, or a 1.5 ounce shot of liquor (like scotch, gin, or vodka). Never 2. How many drinks containing alcohol did you have on a typical day when you were drinking in the past year? Response not required due to responses to other questions. 3. How often did you have six or more drinks on one occasion in the past year? Response not required due to responses to other questions. COVID-19 Immunization: Referred to another clinic for immunization (desired vaccine unavailable at this location) Depression Screening: Perform PHQ-2 A PHQ-2 screen was performed. The score was 0 which is a negative screen for depression. Over the past two weeks, how often have you been bothered by the following problems? 1. Little interest or pleasure in doing things Not at all 2. Feeling down, depressed, or hopeless Not at all Fall Screen: Patient was asked if he/she has had any falls within the past 12 months. Patients states no falls in past 12 months. Teaching Method: Verbal discussion Education Topic: Falls Risk Level of Understanding: Good Frail/Elderly Screen: ADL Screen Record INDEX of ADL. Score = 18 1. Bathing: either sponge bath, tub bath or shower. Receives no assistance (gets in and out of tub by self, if tub is usual means of bathing). 2. Dressing: gets clothes from closets and drawers, including under-clothes, outer garments and using fasteners (including braces if worn). Gets clothes and dresses self without assistance. 3. Toileting: going to the toilet room for bowel and urine elimination; cleaning self after elimination and arranging clothes. (May use cane, walker, or wheelchair, and manage bedpan or commode, emptying same next morning). No assistance needed. 4. Transfer: Moves in and out of bed, or chair, without assistance (may use support object like cane or walker). 5. Continence: Controls urination and bowel movement completely by self. 6. Feeding: Feeds self without assistance. IADL Screen: Ability to use telephone: (1 point) Operates Telephone on own initiative; looks up and dials numbers. Shopping: (1 point) Takes care of all shopping needs independently. Food preparation: (1 point) Plans, prepares, and serves adequate meals independently. Housekeeping: (1 point) Maintains house alone with occasional assistance (heavy work). Laundry: (1 point) Does personal laundry completely. Mode of transportation: (1 point) Travels independently on public transportation or drives own car. Responsibility for own medications: (1 point) Is responsible for taking medications in correct dosages at correct times. Ability to handle finances: (1 point) Manages financial matters independently (budgets, writes checks, pays rent and bills, goes to bank); collects and keeps track of income. Total score: 8 points 8 = High function, independent 0 = Low function, dependent Herpes Zoster (Shingles) Vaccine: The patient declines to receive the recommended dose of zoster (shingles) vaccine. Immunization: ZOSTER RECOMBINANT Refusal Reason: PATIENT DECISION Patient refuses all immunization(s) in the ZOSTER group Date Documented: 06/30/24 10:53 Homelessness/Food Insecurity Screen: In the past 2 months, have you been living in stable housing that you own, rent, or stay in as part of a household? Yes - Living in stable housing. Are you worried or concerned that in the next 2 months you may NOT have stable housing that you own, rent, or stay in as part of a household? No - Not worried about housing near future The reports the following: Within the past 12 months, you worried whether your food would run out before you got money to buy more. Never true Within the past 12 months, the food you bought just didn't last and you didn't have money to get more. Never true Learning Assessment: LEARNING NEEDS ASSESSMENT: I. Learning Preference: Hands-on II. Barriers to Learning: Physical Limitations : Ambulates with cane III. Social Influences Related to Educational Needs: No social barriers to learning IV. Readiness to Learn: Patient Appears ready to learn. Suicide Screen: C-SSRS Screening [place] Suicide Severity Rating Scale (C-SSRS) screener 1. Over the past month, have you wished you were or wished you could go to sleep and not wake up? No 2. Over the past month, have you had any actual thoughts of killing yourself? No 3. Over the past month, have you been thinking about how you might do this? Response not required due to responses to other questions. 4. Over the past month, have you had these thoughts and had some intention of acting on them? Response not required due to responses to other questions. 5. Over the past month, have you started to work out or worked out the details of how to kill yourself? Response not required due to responses to other questions. 6. If yes, at any time in the past month did you intend to carry out this plan? Response not required due to responses to other questions. 7. In your lifetime, have you ever done anything, started to do anything, or prepared to do anything to end your life (for example, collected pills, obtained a gun, gave away valuables, went to the roof but didn't jump)? No 8. If YES, was this within the past 3 months? Response not required due to responses to other questions. Tobacco Use Screening: The patient is a former tobacco user. The patient quit fifteen or more years ago. /carson/ [facility] LICENSED PRACTICAL NURSE Signed: 06/30/2024 10:56 [facility] [place]
--- OUTSIDE RECORDS SUMMARY | 2024-09-05 07:00 | XMS_ITS | Encounter Summary ---
Author Name [facility] Address [address] [place] [address] Care Team Providers Care Hand Baseball Sewer Name Role Phone HARISH HANNA Primary Care [...] SUPPLEMEN YANET PLAN J Apr 17, 2002 [id number] [phone] DAGG,WILL JERAD PATIENT AARP MED SUPP MEDICARE SUPPLEMEN YANET PLAN J Apr 17, 2002 PLAN [id number] [phone] DAGG,WILL JERAD PATIENT MEDICARE (WNR) MEDICARE (M) PART B February 15, 2002 PART B [id number] [phone] DAGG,WILL JERAD PATIENT MEDICARE (WNR) MEDICARE (M) PART A February 15, 2002 PART A [id number] DAGG,WILL JERAD PATIENT MEDICARE (WNR) MEDICARE (M) PART B February 15, 2002 PART B [id number] [phone] DAGG,WILL JERAD PATIENT MEDICARE (WNR) MEDICARE (M) PART A February 15, 2002 PART A [id number] DAGG,WILL JERAD PATIENT Selected Encounter This section includes the information on record at [place] for the Encounter. Date/Time Encounter Type Encounter Description Reason Provider Source Sep 05, 2024 11:00 AM HEARING AID EXAM BOTH EARS AUDIOLOGY ICD-10-CM H90.3 Sensorineural hearing loss, bilateral SISSY TIAN IHE Encounter Template Text not used by [facility] Assessments - Encounter Diagnoses This section includes the primary and secondary diagnoses documented for the Encounter. Date/Time Primary/Secondary Diagnosis Diagnosis Name Provider Source Oct 09, 2024 01:59 PM PRIMARY Sensorineural hearing loss, bilateral ILDA TIAN Oct 09, 2024 01:59 PM SECONDARY Encounter for fitting and adjustment of hearing aid ILDA ITAN Plan of Treatment: Future Appointments (+ 6 months) and Future Tests (+/- 45 days) The Plan of Treatment section includes future care activities for the patient from all [place] treatmentfacilities. This section includes future appointments and future orders which are active, pending or scheduled. Future Appointments This section includes appointments that were scheduled to occur 6 months from the date of the Encounter, up to a maximum of 20 appointments. The data comes from all [place] treatment facilities. Appointment Date/Time Appointment Type Appointme nt Facility Name Dec 19, 2024 02:30 PM AMBULATORY - NONE MARYLOU Edward [facility] Dec 21, 2024 11:00 AM AMBULATORY - SURGERY [facility] [place] Jan 24, 2025 11:00 AM AMBULATORY - SURGERY [facility] [place] February 26, 2025 10:30 AM AMBULATORY - SURGERY [facility] Social History: Smoking Status (Most current) and Tobacco Use (All prior to encounter date) This section includes the most current, and the historical, smoking and tobacco- related health factors from the [place] facility where the Encounter took place. Current Smoking Status This section includes the most current smoking, or tobacco-related health factor, from the [place] facility where the Encounter took place. Date/Time Current Smoking Status Comment Caleb peck Jun 30, 2024 11:00 AM VA-TOBACCO [facility] Tobacco Use History This section includes a history of the smoking, or tobacco-related health factors, that were collected on or before the date of the Encounter. The data comes from the [place] facility where the Encounter took place. Date/Time Smoking Status/Tobacco Use Comment F acility Jun 30, 2024 11:00 AM VA-TOBACCO QUIT 15 YRS OR MORE [facility] Jun 30, 2023 10:30 AM VA-TOBACCO FORMER USER [facility] Jun 30, 2023 10:30 AM VA-TOBACCO QUIT 15 YRS OR MORE [facility] Dec 15, 2021 01:30 PM VA-TOBACCO FORMER USER [facility] Dec 15, 2021 01:30 PM VA-TOBACCO QUIT 15 YRS OR MORE [facility] May 29, 2019 10:41 AM VA-TOBACCO FORMER USER [facility] May 29, 2019 10:41 AM VA-TOBACCO QUIT 15 YRS OR MORE [facility] Jan 07, 2009 01:17 PM QUIT TOBACCO >7 YEARS AGO [facility] Jan 30, 2008 08:39 AM QUIT TOBACCO >7 YEARS AGO [facility] Jan 20, 2007 08:31 AM QUIT TOBACCO >7 YEARS AGO [facility] Jul 12, 2006 08:59 AM TOBACCO FORMER USE R MORE 12 MONTHS QUIT SMOKING 25 YEARS AGO [facility] Oct 08, 2005 09:19 AM TOBACCO FORMER USE R MORE 12 MONTHS quit ' [facility] Dec 19, 2004 08:23 AM TOBACCO FORMER USE R MORE 12 MONTHS Quit about 20 years ago. [facility] March 04, 2004 02:45 PM TOBACCO FORMER USE R MORE 12 MONTHS QUIT IN 1982 [facility] Sep 01, 2002 08:54 AM TOBACCO FORMER USE R LESS 12 MONTHS NOT IN 20 YEARS [facility] Sep 01, 2002 08:54 AM TOBACCO FORMER USE R MORE 12 MONTHS NOT IN 20 YEARS [facility] Jan 06, 2001 09:05 AM TOBACCO FORMER USE R LESS 12 MONTHS [facility] Jan 06, 2001 09:05 AM TOBACCO FORMER USE R MORE 12 MONTHS [facility] Encounter Notes: All associated encounter notes This section contains the clinical notes associated to the Encounter. Date/Time Encounter Note(s) Provider Source Sep 05, 2024 10:54 AM AUDIOLOGY NOTE: LOCAL TITLE: AUDIOLOGY ASSESSMENT (T) STANDARD TITLE: AUDIOLOGY NOTE DATE OF NOTE: SEP 05, 2024@10:54 ENTRY DATE: SEP 05, 2024@10:55:01 AUTHOR: MARIA E TIAN EXP COSIGNER: URGENCY: STATUS: COMPLETED Previous Hearing Aids: (2) 2021 Phonak BTEs (2) 2019 Resound RICs (2) 2016 Phonak BTEs (2) 2011 Phonak BTEs (2) 2008 Micro-Tech ITEs (2) 2003 Micro-Tech ITEs History: here today to have his hearing tested and obtain new hearing aids. He would like to continue with BTEs, but would like rechargeable. [place] denied tinnitus, pain, pressure, vertigo, ear surgeries, and family history of hearing loss. 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 Left: clear. Reliability: Good Pure Tone Audiometry: High Frequency Headphones Right Ear: Moderately-severe to profound sensorineural hearing loss. Left Ear: Moderately-severe to profound sensorineural hearing loss. Speech Audiometry: Recorded CNC 50 word list with masking. Right Ear: Fair WRS (76%), List: 1 at 90 dBHL Left Ear: Fair WRS (70%), List: 6 at 95 dBHL Tympanometry: Right: Normal, Type A tymp. Left: Normal, Type A tymp. Acoustic Reflexes: Right: Left: 500Hz: 100+ 500Hz: 100+ 1kHz: 105+ 1kHz: 105+ 2kHz: 105+ 2kHz: 105+ Recommendation(s): -Input new thresholds in SHIVANI, connected hearing aids, and updated programming -Updated binaural amplification; discussed options with -Will use scans on file -RTC order placed for Naomy GARCIA -Encouraged to see Primary care team for overall health needs ORDER: (2) Phonak Cheryle L90-NM BTEs with skeleton molds; color: Kati /carson/ MARIA E TIAN RESTAURANT BUSSER Signed: 09/05/2024 11:44 MARIA E TIAN CBNAT
--- OUTSIDE RECORDS SUMMARY | 2024-11-22 09:30 | XMS_ITS ---
Author Organization [facility] in [place] Address [address] [place] [address] Care Team Providers Care Sales Lead Name Role Phone Rohit Nicolas Primary Care Provider [phone] Allergies Allergen (clinical drug ingredient) Drug/Non Drug Allergy documented on EMR Reaction Allergy Type Onset Date Status ciprofloxacin Cipro hives Drug Allergy Act noelle Bee Sting anaphylaxis Allergy Active REASON [place] [facility], [place] Pain Medications Medication SIG (Take, Route, Frequency, Duration) Notes Start Date End Date Status Metoprolol Succinate 25 MG 1/2 Orally Once a day Active Valsartan 320 MG 1 tablet Orally Once a day for 14 days Active Protonix 40 MG 1 tablet Orally bid for 30 days 02/17/2023 Active Nitroglycerin 0.4 MG 1 sl Sublingual Q 5 min as needed for chest pain PRN 11/16/2024 Active Vitamin D3 50 MCG (1999 UT) 1 capsule Orally Once a day for 90 days 02/18/2023 Active Lasix 20 MG 1 tablet Orally Once a day Active Hyoscyamine Sulfate 0.125 MG 1-2 tabs SL SL every 4 hrs PRN abd pain 11/01/2024 Not-Taking Fluocinolone Acetonide 0.025 % 1 application Externally Twice a day for 30 days 02/17/2023 Active EpiPen 2-To 0.3 MG/0.3ML as directed Injection Active Diclofenac Sodium 1 % as directed Externally Active Cetirizine HCl 10 MG 1 tablet Orally Once a day Active CeleBREX 200 MG 1 capsule Orally Once a day Active Carafate 1 GM 1 tablet on an empty stomach Orally Four times a day for 30 days new directions 12/08/2023 Active ALPRAZolam 0.25 MG 1 tablet Orally q6h for 14 days 11/22/2024 Active Cyanocobalamin 1000 MCG/ML 1 mL Injection monthly for 30 days Active Aspirin 81 81 MG 1 tablet Orally Once a day Active Syringe (Disposable) 3 ML Use 1 syringe for IM injection once monthly for 90 days 09/27/2023 Active Acidophilus Active Atorvastatin Calcium 40 MG 1 tablet Orally Once a day Active Dicyclomine HCl 20 MG 1 tablet Orally Once Daily Patient taking every other day Active Vital Signs Weight 217.2 lbs 11/22/2024 Height 71 in 11/22/2024 Blood pressure systolic 138 mm Hg 11/22/19 25 Blood pressure diastolic 82 mm Hg 025 BMI 30.29 kg/m2 11/22/2024 Encounters Encounter Location Date Provider Diagnosis [address] [id number] 11/22/2024 Rohit Nicolas Essential hypertensi on I10 ; CAD (coronary artery disease) I25.10 and Anxiety F41.9 Assessments Encounter Date Diagnosis (ICD Code) Assessment Notes Treatment Notes Treatment Clinical Notes Section Notes 11/22/2024 Essential hypertension (ICD-10 - I10) 11/22/2024 CAD (coronary artery disease) (ICD-10 - I25.10) 11/22/2024 Anxiety (ICD-10 - F41.9) Plan Of Treatment Medication Medication Name Sig Start Date Stop Date Notes ALPRAZolam 0.25 MG 1 tablet Orally q6h for 14 days 025 Syringe (Disposable) 3 ML Use 1 syringe for IM injection once monthly for 90 days 09/27/2023 Progress Notes * Macario ASH RDOB: [birth year] (89 yo M)Acc No.[id number]:11/22/2024 Progress Note Patient: Wagner KAUFMANMacario Provider: Wagner Nicolas ([facility])MD :1935 A ge:89 Y S ex:Male Date:11/22/2024 Address:[address] [place], [place] [id number] Check In:01:32 PM ESTCheck O ut:02:02 PM EST Subjective: * Chief Complaints: * [facility] [place] * HPI: G eneral: Feels giood - fatoigued but no TAI feels jittery inside stil on carafae for abd pain on bentyl for the bopwl pain feels like stressed some - doenst want meds took ativan that used to help. * ROS: E ENT: hearing changes d enies. v isual changes d enies.?non-healing mouth sores d enies. s wollen glands or neck lumps d enies. h oarseness d enies. s ore throat d enies. d ifficulty swallowing d enies. n ose bleeds d enies. n bebe congestion d enies. e ar ache d enies. e ar discharge?denies. r inging in ears d enies. l ight sensitivity d enies. e ye pain d enies. b lurring d enies. e ye irritation d enies. d ouble vision d enies.?vision loss d enies. G eneral/Constitutional: Sweats: D enies. F atigue d enies. S leep problems d enies. A norexia d enies. M alaise d enies. W eight loss d enies.?Fatigue or Weakness d enies. F ever or Chills d enies. C ardiovascular: Shortness of Breath w/lying flat d enies. L ightheadedness/dizziness d enies. C hest tightness/ heavy pressure d enies. S welling of legs, ankles, or feet d enies. W aking up with shortness of breath d enies. C hest pain denies. P alpitations d enies. W eight gain d enies. R espiratory: Chronic or frequent cough d enies. C oughing up blood?denies. D ifficulty breathing d enies. P roductive cough d enies. S noring?denies. S hortness of breath that awakens from sleep (PND) d enies. C hest pain d enies. S putum production d enies. W heezing d enies. M usculoskeletal: Joint pain d enies. J oint Fluid d enies. B ack pain d enies. K nee pain d enies. N atiya pain d enies. J oint Stiffness d enies. M uscle cramps d enies. W eakness of muscles d enies. A rthritis d enies. M uscle aches d enies. P ain in shoulder(s) d enies. S wollen joints d enies. 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 Modified On:02/12/2023 Status:confirmed M51.36 DDD (degenerative di sc disease), lumbar Modified On:02/12/2023 Status:confirmed K64.9 Hemorrhoids Modified On:02/12/2023 Status:confirmed R55 Near syncope Modified On:02/12/2023 Status:confirmed J30.2 Allergic rhinitis, s easonal Modified On:02/12/2023 Status:confirmed I48.91 AF (atrial fibrillat ion) Modified On:02/12/2023 Status:confirmed E78.2 Mixed hyperlipidemia Modified On:02/12/2023 Status:confirmed I21.3 ST elevation (STEMI) myocardial infarction of unspecified site Modified On:02/12/2023 Status:confirmed I45.5 Other specified hear t block Modified On:02/12/2023 Status:confirmed I25.10 CAD (coronary artery disease) Modified On:11/04/2023 Status:confirmed F10.21 History of alcoholis m Modified On:02/12/2023 Status:confirmed K22.2 Schatzki's ring Modified On:02/12/2023 Status:confirmed H70.90 Mastoiditis Modified On:02/12/2023 Status:confirmed K21.9 Gastro-esophageal re flux disease Modified On:11/04/2023U Status:confirmed N40.0 Benign hypertrophy o f prostate Modified On:02/17/2023U Status:confirmed M54.50 Low back pain, unspe cified Modified On:02/12/2023U Status:confirmed M54.59 Other low back pain Modified On:02/12/2023U Status:confirmed K58.9 Irritable bowel Modified On:12/22/2023U Status:confirmed F41.9 Anxiety Modified On:12/22/2023U Status:confirmed G25.81 Restless leg syndrom e Modified On:12/22/2023 Status:confirmed * Medical History: * Surgical History: E GD/Colon 2019Stent Placement Dr [place] [facility] [place]22 * Hospitalization/Major Diagno stic Procedure: c hest pain hest Pain 10/2024 * Medications: T akingAcidophilus ALPRAZolam 0.25 MG Tablet 1 tablet Orally qhs Aspirin 81(Aspirin) 81 MG Tablet Delayed Release 1 tablet Orally Once a day Atorvastatin Calcium 40 MG Tablet 1 tablet Orally Once a day Carafate(Sucralfate) 1 GM Tablet 1 tablet on an empty stomach Orally Four times a day , Notes to Pharmacist: new directionsCeleBREX(Celecoxib) 200 MG Capsule 1 capsule Orally Once a day Cetirizine HCl 10 MG Tablet 1 tablet Orally Once a day Cyanocobalamin 1000 MCG/ML Solution 1 mL Injection monthly Diclofenac Sodium 1 % Gel as directed Externally Dicyclomine HCl 20 MG Tablet 1 tablet Orally Once Daily Patient taking every other dayEpiPen 2-To(EPINEPHrine) 0.3 MG/0.3ML Solution Auto-injector as directed Injection Fluocinolone Acetonide 0.025 % Ointment 1 application Externally Twice a day Lasix(Furosemide) 20 MG Tablet 1 tablet Orally Once a day Metoprolol Succinate 25 MG Capsule ER 24 Hour Sprinkle 1/2 Orally Once a day Nitroglycerin 0.4 MG Tablet Sublingual 1 sl Sublingual Q 5 min as needed for chest pain , Notes to Pharmacist: PRNProtonix(Pantoprazole Sodium) 40 MG Tablet Delayed Release 1 tablet Orally bid Syringe (Disposable) 3 ML Miscellaneous Use 1 syringe for IM injection once monthly Valsartan 320 MG Tablet 1 tablet Orally Once a day Vitamin D3 50 MCG (1999) Capsule 1 capsule Orally Once a day Taking Acidophilus Taking ALPRAZolam 0.25 MG Tablet 1 tablet Orally qhs Taking Aspirin 81(Aspirin) 81 MG Tablet Delayed Release 1 tablet Orally Once a day Taking Atorvastatin Calcium 40 MG Tablet 1 tablet Orally Once a day Taking Carafate(Sucralfate) 1 GM Tablet 1 tablet on an empty stomach Orally Four times a day , Notes to Pharmacist: new directionsTaking CeleBREX(Celecoxib) 200 MG Capsule 1 capsule Orally Once a day Taking Cetirizine HCl 10 MG Tablet 1 tablet Orally Once a day Taking Cyanocobalamin 1000 MCG/ML Solution 1 mL Injection monthly Taking Diclofenac Sodium 1 % Gel as directed Externally Taking Dicyclomine HCl 20 MG Tablet 1 tablet Orally Once Daily Patient taking every other dayTaking EpiPen 2-To(EPINEPHrine) 0.3 MG/0.3ML Solution Auto-injector as directed Injection Taking Fluocinolone Acetonide 0.025 % Ointment 1 application Externally Twice a day Taking Lasix(Furosemide) 20 MG Tablet 1 tablet Orally Once a day Taking Metoprolol Succinate 25 MG Capsule ER 24 Hour Sprinkle 1/2 Orally Once a day Taking Nitroglycerin 0.4 MG Tablet Sublingual 1 sl Sublingual Q 5 min as needed for chest pain , Notes to Pharmacist: PRNTaking Protonix(Pantoprazole Sodium) 40 MG Tablet Delayed Release 1 tablet Orally bid Taking Syringe (Disposable) 3 ML Miscellaneous Use 1 syringe for IM injection once monthly Taking Valsartan 320 MG Tablet 1 tablet Orally Once a day Taking Vitamin D3 50 MCG (1999) Capsule 1 capsule Orally Once a day Not-Taking/PRNHyoscyamine Sulfate 0.125 MG Tablet Sublingual 1-2 tabs SL SL every 4 hrs PRN abd pain Medication List reviewed and reconciled with the patientNot-Taking/PRN Hyoscyamine Sulfate 0.125 MG Tablet Sublingual 1-2 tabs SL SL every 4 hrs PRN abd pain Medication List reviewed and reconciled with the patient * Allergies: C ipro: hives - Criticality HighBee Sting: anaphylaxis - Criticality Highno[Allergies Verified] Objective: * Vitals: W t:217.2lbs, Ht: 71 in, BP:138/82mm Hg, BMI:30.29Index, Ht-cm: 180.34 cm, Wt-k.52 kg. * Examination: P hysical Exam: GENERAL: w ell developed, well nourished, in no acute distress. HEAD: n ormocephalic/atraumatic. EYES: p upils equal, round and reactive to light, conjunctivae and sclerae normal. EARS: n o deformity or lesion of external ear, canals and TM appear normal bilaterally, TM's intact, not inflamed with normal light reflex, hearing grossly normal to conversational speech. NOSE: n o deformity, discharge, inflammation, or lesions.? MOUTH: m ucous membranes moist, normal oropharynx and posterior pharynx without lesions or exudates, tongue normal, dentition normal. NECK: n atiya supple, no masses or palpable cervical nodes, trachea midline, thyroid without nodules, masses, tenderness, or enlargement. CHEST: n o chest wall deformity, no chest wall tenderness.? LUNGS: n ormal respiratory effort and clear to auscultation, no wheezes, rales, or rhonchi, good air exchange. CARDIO: r egular rate and rhythm, normal S1 and S2, nor murmur, rub, or gallop. PULSES: n ormal capillary refill. ABDOMEN: s oft, non-distended, non-tender, no masses. MUSCULOSKELETAL: n o deformity or scoliosis noted, normal range of motion, joints normal, no erythema, edema, effusion, or ecchymosis. EXTREMITY: n o clubbing, cyanosis, edema, or deformity with normal ROM in both upper and lower bilateral extremities. NEUROLOGIC: g rossly normal. SKIN: n o rashes, ulcerations, or suspicious lesions. LYMPH NODES: n o cervical adenopathy, nodes normal. MENTAL STATUS: a lert and oriented x3, normal mood and affect. Assessment: * Assessment: 1. E ssential hypertension - I10 (Primary) 2 . C AD (coronary artery disease) - I25.10 3 . A nxiety - F41.9 Plan: * Treatment: 2. A nxiety Refill ALPRAZolam Tablet, 0.25 MG, 1 tablet, Orally, q6h, 14 days, 56, Refills 0. * Procedure Codes: * Preventive Medicine: Screenings/Counseling: B MN ACTION PLAN Above Normal BMI Follow-up D ietary management education, guidance, and counseling * * Sign off status: Completed Visit Status: C HK (Check Out) true * Provider: Wagner Nicolas ([facility])MD Date: 0 11/22/2024 Generated for Printi ng/Faxing/eTransmitting on: 0 03/23/2025 10:06 AM EDT History and Physical Notes * HPI (History of Present Illness) Category Sub-Category Detail Notes Category Not es General Feels giood - fatoigued but no TAI feels jittery inside stil on carafae for abd pain on bentyl for the bopwl pain feels like stressed some - doenst want meds took ativan that used to help Examination Category Sub-Category Detail Notes Category Not es Physical Exam GENERAL: well developed, well nourished, in no acute distress HEAD: normocephalic/atraum atic EYES: pupils equal, round and reactive to light, conjunctivae and sclerae normal EARS: no deformity or lesi on of external ear, canals and TM appear normal bilaterally, TM's intact, not inflamed with normal light reflex, hearing grossly normal to conversational speech NOSE: no deformity, discha rge, inflammation, or lesions MOUTH: mucous membranes case st, normal oropharynx and posterior pharynx without lesions or exudates, tongue normal, dentition normal NECK: neck supple, no mass es or palpable cervical nodes, trachea midline, thyroid without nodules, masses, tenderness, or enlargement CHEST: no chest wall deform ity, no chest wall tenderness LUNGS: normal respiratory e ffort and clear to auscultation, no wheezes, rales, or rhonchi, good air exchange CARDIO: regular rate and rhy thm, normal S1 and S2, nor murmur, rub, or gallop PULSES: normal capillary ref ill ABDOMEN: soft, non-distended, non-tender, no masses RECTAL: MUSCULOSKELETAL: no deformity or scol iosis noted, normal range of motion, joints normal, no erythema, edema, effusion, or ecchymosis EXTREMITY: no clubbing, cyanosi s, edema, or deformity with normal ROM in both upper and lower bilateral extremities NEUROLOGIC: grossly normal SKIN: no rashes, ulceratio ns, or suspicious lesions LYMPH NODES: no cervical adenopat hy, nodes normal MENTAL STATUS: alert and oriented x 3, normal mood and affect
--- OUTSIDE RECORDS SUMMARY | 2024-12-19 10:30 | XMS_ITS | Encounter Summary ---
Author Name [facility] Organization [facility] Address [address] [place] [address] Care Team Providers Care Baker Test Name Role Phone HARISH HANNA Primary Care [...] SUPPLEMEN YANET PLAN J Apr 17, 2002 [id number] [phone] DAGG,WILL JERAD PATIENT AARP MED SUPP MEDICARE SUPPLEMEN YANET PLAN J Apr 17, 2002 PLAN J [id number] DAGG,WILL JERAD PATIENT MEDICARE (WNR) MEDICARE (M) PART B February 15, 2002 PART B [id number] DAGG,WILL JERAD PATIENT MEDICARE (WNR) MEDICARE (M) PART A February 15, 2002 PART A [id number] DAGG,WILL JERAD PATIENT MEDICARE (WNR) MEDICARE (M) PART A February 15, 2002 PART A [id number] DAGG,WILL JERAD PATIENT MEDICARE (WNR) MEDICARE (M) PART B February 15, 2002 PART B [id number] DAGG,WILL JERAD PATIENT Selected Encounter This section includes the information on record at [place] for the Encounter. Date/Time Encounter Type Encounter Description Reason Provider Source Dec 19, 2024 02:30 PM HEARING SERVICE AUDIOLOGY ICD-10-CM Z46.1 Encounter for fitting and adjustment of hearing aid ILDA TIAN IHE Encounter Template Text not used by [place] Assessments - Encounter Diagnoses This section includes the primary and secondary diagnoses documented for the Encounter. Date/Time Primary/Secondary Diagnosis Diagnosis Name Provider Source Jan 02, 2025 08:14 PM PRIMARY Encounter for fitting and adjustment of hearing aid ILDA TIAN [facility] Plan of Treatment: Future Appointments (+ 6 months) and Future Tests (+/- 45 days) The Plan of Treatment section includes future care activities for the patient from all [place] treatmentfacilities. This section includes future appointments and future orders which are active, pending or scheduled. Future Appointments This section includes appointments that were scheduled to occur 6 months from the date of the Encounter, up to a maximum of 20 appointments. The data comes from all [place] treatment facilities. Appointment Date/Time Appointment Type Appointme nt Facility Name Dec 21, 2024 11:00 [facility] Jan 24, 2025 11:00 AM [facility] February 26, 2025 10:30 AM [facility] March 13, 2025 10:30 AM [facility] N[facility] Social History: Smoking Status (Most current) and Tobacco Use (All prior to encounter date) This section includes the most current, and the historical, smoking and tobacco- related health factors from the [place] facility where the Encounter took place. Current Smoking Status This section includes the most current smoking, or tobacco-related health factor, from the [place] facility where the Encounter took place. Date/Time Current Smoking Status Comment Facil ity Jun 30[facility] 2024 11[facility] Tobacco Use History This section includes a history of the smoking, or tobacco-related health factors, that were collected on or before the date of the Encounter. The data comes from the [place] facility where the Encounter took place. Date/Time Smoking Status/Tobacco Use Comment F acility Jun 30, 2024 11:00 AM [facility]TO[facility]ACCO QUIT 15 YRS OR MORE [facility] Jun 30, 2023 10:30 AM VA-TOBACCO FORMER USER [facility] Jun 30, 2023 10:30 AM VA-TOBACCO QUIT 15 YRS OR MORE [facility] Dec 15, 2021 01:30 PM VA-TOBACCO FORMER USER [facility] Dec 15, 2021 01:30 PM VA-TOBACCO QUIT 15 YRS OR MORE [facility] May 29, 2019 10:41 AM VA-TOBACCO FORMER USER [facility] May 29, 2019 10:41 AM VA-TOBACCO QUIT 15 YRS OR MORE [facility] Jan 07, 2009 01:17 PM QUIT TOBACCO >7 YEARS AGO [facility] Jan 30, 2008 08:39 AM QUIT TOBACCO >7 YEARS AGO [facility] Jan 20, 2007 08:31 AM QUIT TOBACCO >7 YEARS AGO [facility] Jul 12, 2006 08:59 AM TOBACCO FORMER USE R MORE 12 MONTHS QUIT SMOKING 25 YEARS AGO [facility] Oct 08, 2005 09:19 AM TOBACCO FORMER USE R MORE 12 MONTHS quit [facility] Dec 19, 2004 08:23 AM TOBACCO FORMER USE R MORE 12 MONTHS Quit about 20 years ago. [facility] March 04, 2004 02:45 PM TOBACCO FORMER USE R MORE 12 MONTHS QUIT IN 1981 [facility] Sep 01, 2002 08:54 AM TOBACCO FORMER USE R LESS 12 MONTHS NOT IN 20 YEARS [facility] Sep 01, 2002 08:54 AM TOBACCO FORMER USE R MORE 12 MONTHS NOT IN 20 YEARS [facility] Jan 06, 2001 09:05 AM TOBACCO FORMER USE R LESS 12 MONTHS [facility] Jan 06, 2001 09:05 AM TOBACCO FORMER USE R MORE 12 MONTHS [facility] Encounter Notes: All associated encounter notes This section contains the clinical notes associated to the Encounter. Date/Time Encounter Note(s) Provider Source Dec 19, 2024 08:59 AM AUDIOLOGY NOTE: LOCAL TITLE: AUDIOLOGY HEARING AID FIT/ADJUSTMENT (T) STANDARD TITLE: AUDIOLOGY NOTE DATE OF NOTE: DEC 19, 2024@08:59 ENTRY DATE: DEC 19, 2024@08:59:54 AUTHOR: MARIA E TIAN EXP COSIGNER: URGENCY: STATUS: COMPLETED AUDIOLOGY HEARING AID FIT/ADJUSTMENT (T) Has ADDENDA [place] seen for fitting of hearing aid(s) and/or assistive listening devices: DEVICES: (2) PHONAK FARHAN L90-MT BTE; SKELETON MOLDS RIGHT SN: [id number] LEFT SN: [id number] REPAIR/L&D WARRANTY: 10/22/27 OTOSCOPY: Right Ear: Unremarkable Left Ear: Unremarkable VERIFICATION OF FIT Microphone insertion responses show the hearing aids conform to target levels. EDUCATION GIVEN TO : Previous hearing aid wearer: Instructed on hearing aid insertion/removal from ear and charging case if applicable, hearing aid battery and/or supplies insertion/removal, adjustment of controls (volume control wheel and/or any switches) and telephone use. Instructed on procedures for ordering batteries and/or supplies from the [employer], procedures for obtaining hearing aid repairs, daily hearing aid care instructions, demonstration of hearing aid cleaning tools, spare hearing aid batteries and instruction booklet. PHONE CONNECTIVITY: N/A OUTCOME MEASURE QUESTIONNAIRE: IOI-HARVEY survey along with stamped VA-addressed return envelope will be mailed to patient with instructions to return survey in 4-6 weeks. PATIENT REACTION TO THE NEW HEARING AID/S: Positive for fit and sound quality. RECOMMENDATIONS Follow-up on an as needed basis with Audiology. Encouraged to see Primary care team for overall health needs. Will send back up set of hearing aids in for repair, will keep old tubing in repair cabinet to measure/reattach repaired hearing aids/tubing before mailing to . Ordered TV Connector per request; mail to once received (provided with [employer] support number today for at home assistance). RTC placed for repair appointment for routine tubing change in ~3 months. /carson/ MARIA E TIAN [employer] Signed: 12/19/2024 15:03 12/22/2024 ADDENDUM STATUS: COMPLETED TV connector arrived. Accidentally certified hearing aid repairs. HAs have not arrived. Mailed TV connector /carson/ ENMANUEL GREENE [employer] Signed: 12/22/2024 12:46 12/26/2024 ADDENDUM STATUS: COMPLETED Received repaired hearing aids from [employer]; settings restored. Used tubing from cabinet to measure tubing appropriately. Will mail to . /carson/ MARIA E TIAN [employer] Signed: 12/26/2024 15:32 02/08/2025 ADDENDUM STATUS: COMPLETED IOI-HARVEY received and entered in BEL[facility] /bill TIAN [employer] Signed: 02/08/2025 11:00 MARIA E TIAN [facility]
--- OUTSIDE RECORDS SUMMARY | 2024-12-21 07:00 | XMS_ITS | Encounter Summary ---
Author Name [facility] [place] [facility] [place] Address [address] [place] [address] Care Team Providers Care Table Games Shift Manager Name Role Phone HARISH HANNA Primary Care [...] SUPPLEMEN YANET PLAN J Apr 17, 2002 [id number] [phone] DAGG,WILL JERAD PATIENT AARP MED SUPP MEDICARE SUPPLEMEN YANET PLAN J Apr 17, 2002 PLAN J [id number] DAGG,WILL JERAD PATIENT MEDICARE (WNR) MEDICARE (M) PART B February 15, 2002 PART B [id number] DAGG,WILL JERAD PATIENT MEDICARE (WNR) MEDICARE (M) PART A February 15, 2002 PART A [id number] DAGG,WILL JERAD PATIENT MEDICARE (WNR) MEDICARE (M) PART B February 15, 2002 PART B [id number] [phone] DAGG,WILL JERAD PATIENT MEDICARE (WNR) MEDICARE (M) PART A February 15, 2002 PART A [id number] DAGG,WILL JERAD PATIENT Selected Encounter This section includes the information on record at [place] for the Encounter. Date/Time Encounter Type Encounter Description Reason Provider Source Dec 21, 2024 11:00 AM OFFICE O/P EST MOD 30 MIN OPTOMETRY ICD-10-CM 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, right eye, LB Hair Gurmeet Encounter Template Text not used by [facility] Assessments - Encounter Diagnoses This section includes the primary and secondary diagnoses documented for the Encounter. Date/Time Primary/Secondary Diagnosis Diagnosis Name Provider Source Jan 05, 2025 01:36 PM PRIMARY Tributary (branch) retinal vein occlusion, right eye, stable LB FARNSWORTH [facility] Jan 05, 2025 01:36 PM SECONDARY Age-related nuclear cataract, bilateral LB FARNSWORTH [facility] Jan 05, 2025 01:36 PM SECONDARY Hypermetropia, bilateral LB FARNSWORTH [facility] Jan 05, 2025 01:36 PM SECONDARY Open angle with borderline findings, low risk, bilateral LB FARNSWORTH [facility] Jan 05, 2025 01:36 PM SECONDARY Presbyopia LB FARNSWORTH [facility] Jan 05, 2025 01:36 PM SECONDARY Regular astigmatism, bilateral LB FARNSWORTH [facility] Jan 05, 2025 01:36 PM SECONDARY Unspecified amblyopia, left eye LB FARNSWORTH [facility] Plan of Treatment: Future Appointments (+ 6 months) and Future Tests (+/- 45 days) The Plan of Treatment section includes future care activities for the patient from all [place] treatmentfacilities. This section includes future appointments and future orders which are active, pending or scheduled. Future Appointments This section includes appointments that were scheduled to occur 6 months from the date of the Encounter, up to a maximum of 20 appointments. The data comes from all [place] treatment facilities. Appointment Date/Time Appointment Type Appointme nt Facility Name Jan 24, 2025 11:00 AM AMBULATORY [facility] SURGERY [facility] February 26, 2025 10:30 AM AMBULATORY - SURGERY [facility] March 13, 2025 10:30 AM AMBULATORY - NONE [facility] Social History: Smoking Status (Most current) and Tobacco Use (All prior to encounter date) This section includes the most current, and the historical, smoking and tobacco- related health factors from the [place] facility where the Encounter took place. Current Smoking Status This section includes the most current smoking, or tobacco-related health factor, from the [place] facility where the Encounter took place. Date/Time Current Smoking Status Comment Caleb ity Jun 30, 2024 11:00 AM VA-TOBACCO FORMER USER [facility] Tobacco Use History This section includes a history of the smoking, or tobacco-related health factors, that were collected on or before the date of the Encounter. The data comes from the [place] facility where the Encounter took place. Date/Time Smoking Status/Tobacco Use Comment F acility Jun 30, 2024 11:00 AM VA-TOBACCO QUIT 15 YRS OR MORE [facility] Jun 30, 2023 10:30 AM VA-TOBACCO FORMER USER [facility] Jun 30, 2023 10:30 AM VA-TOBACCO QUIT 15 YRS OR MORE [facility] Dec 15, 2021 01:30 PM VA-TOBACCO FORMER USER [facility] Dec 15, 2021 01:30 PM VA-TOBACCO QUIT 15 YRS OR MORE [facility] May 29, 2019 10:41 AM VA-TOBACCO FORMER USER [facility] May 29, 2019 10:41 AM VA-TOBACCO QUIT 15 YRS OR MORE [facility] Jan 07, 2009 01:17 PM QUIT TOBACCO >7 YEARS AGO [facility] Jan 30, 2008 08:39 AM QUIT TOBACCO >7 YEARS AGO [facility] Jan 20, 2007 08:31 AM QUIT TOBACCO >7 YEARS AGO [facility] Jul 12, 2006 08:59 AM TOBACCO FORMER USE R MORE 12 MONTHS QUIT SMOKING 25 YEARS AGO [facility] Oct 08, 2005 09:19 AM TOBACCO FORMER USE R MORE 12 MONTHS quit ' [facility] Dec 19, 2004 08:23 AM TOBACCO FORMER USE R MORE 12 MONTHS Quit about 20 years ago. [facility] March 04, 2004 02:45 PM TOBACCO FORMER USE R MORE 12 MONTHS QUIT IN 1981 [facility] Sep 01, 2002 08:54 AM TOBACCO FORMER USE R LESS 12 MONTHS NOT IN 20 YEARS [facility] Sep 01, 2002 08:54 AM TOBACCO FORMER USE R MORE 12 MONTHS NOT IN 20 YEARS [facility] Jan 06, 2001 09:05 AM TOBACCO FORMER USE R LESS 12 MONTHS [facility] Jan 06, 2001 09:05 AM TOBACCO FORMER USE R MORE 12 MONTHS [facility] Encounter Notes: All associated encounter notes This section contains the clinical notes associated to the Encounter. Date/Time Encounter Note(s) Provider Source Dec 21, 2024 11:19 AM OPHTHALMOLOGY CONS ULT: LOCAL TITLE: OPHTHALMIC IMAGING NOTE (C) STANDARD TITLE: OPHTHALMOLOGY CONSULT DATE OF NOTE: DEC 21, 2024@11:19 ENTRY DATE: DEC 21, 2024@11:19:46 AUTHOR: JOHN MARROQUIN EXP COSIGNER: LB FARNSWORTH URGENCY: STATUS: COMPLETED Attached are Ophthalmic images. /carson/ JOHN MARROQUIN OPTOMETRY HEALTH SCIENCE SPECIALIST Signed: 12/21/2024 11:20 /carson/ LB FARNSWORTH SPECIALTY MANUFACTURING SUPERVISOR Cosigned: 12/21/2024 11:22 [facility]ARROQUIN [facility] Dec 21, 2024 11:14 AM OPTOMETRY NOTE: LOCAL TITLE: OPTOMETRY HEALTH SCIENCE SPECIALIST NOTE STANDARD TITLE: OPTOMETRY NOTE DATE OF NOTE: DEC 21, 2024@11:14 ENTRY DATE: DEC 21, 2024@11:14:27 AUTHOR: JOHN MARROQUIN EXP COSIGNER: LB FARNSWORTH URGENCY: STATUS: COMPLETED 89 Year old vet here today YORDAN and OCT Last Eye exam: Mar 01 2024 CERVANTES/OPT Dr Farnsworth Chief Complaint: patient voices no visual complaints or concerns today Ocular History: (+) Refractive Amblyopia OS (+) MGD OU (+) Cat OU (+) Moderate CDs OU LIOP: OD:18 OS:20 LCD: OD:0.60 OS:0.50 Pach: OD:502 OS:529 Ocular Medications: none Family Ocular History: Blindness/glaucoma/ARMD (-) Medical History: Atrial fibrillation 07/01/2023 Exposure to potentially hazardous substance 06/30/2023 History of placement of stent for coronary 06/15/2022 CAD - Coronary artery disease 06/15/2022 Gastroesophageal reflux disease 06/09/2017 Sensorineural hearing loss, bilateral 01/26/2017 Family History of Ischemic Heart Disease 03/25/2010 History of alcohol abuse 07/01/2023 Tinnitus 12/10/2016 Disorder of lumbar disc 07/01/2023 Benign essential hypertension 05/25/2016 Osteoarthritis 05/25/2016 DEBORAH JETER Gout 05/25/2016 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 Active Medications: CELECOXIB 200MG CAP TAKE ONE CAPSULE BY MOUTH TWICE A ACTIVE CETIRIZINE HCL 10MG TAB TAKE ONE TABLET BY MOUTH ACTIVE EPI(EQV-ADRENACLICK)0.3MG/0.3ML INJCTR INJECT ACTIVE FUROSEMIDE 20MG TAB TAKE ONE TABLET BY MOUTH EVERY ACTIVE OMEPRAZOLE 20MG EC CAP TAKE ONE CAPSULE BY MOUTH ACTIVE UREA 10% LOTION APPLY A SUFFICIENT AMOUNT EXTERNALLY ACTIVE VALSARTAN 320MG TAB TAKE ONE TABLET BY MOUTH EVERY ACTIVE Non-VA ACETAMINOPHEN TAB 1000MG MOUTH THREE TIMES A ACTIVE Non-VA ATORVASTATIN CALCIUM 40MG TAB 40MG MOUTH AT ACTIVE Non-VA BETAMETHASONE DIPR 0.05%/CLOTRIMAZOLE 1% ACTIVE Non-VA CAMPHOR/MENTHOL/METHYL SALICYLATE PATCH ONE ACTIVE Non-VA CYANOCOBALAMIN 1000MCG/ML INJ 1ML (1000MCG) ACTIVE Non-VA FAMOTIDINE TAB 10MG MOUTH EVERY DAY NEEDED ACTIVE Non-VA LACTOBACILLUS ACIDOPHILUS CHEW TAB 1 TABLET BY ACTIVE Non-VA METOPROLOL SUCCINATE 50MG SA TAB 50MG MOUTH ACTIVE Non-VA METOPROLOL TARTRATE 25MG TAB 12.5MG MOUTH ACTIVE Allergies: CIPROFLOXACIN PENICILLIN INSECT STINGS Current Rx: OD: +1.75 -2.00 X77 OS: +1.75 -2.00 X81 ADD:+2.75 VA: sRx OD: 20/30 PH: 20/25 OS: 20/80 PH: 20/70 EOMs: FULL OU PUPILS: ERRL -APD OU CF: FULL OU /carson/ JOHN MARROQUIN OPTOMETRY HEALTH SCIENCE SPECIALIST Signed: 12/21/2024 11:19 /carson/ LB FARNSWORTH SPECIALTY MANUFACTURING SUPERVISOR Cosigned: 12/21/2024 11:22 JOHN MARROQUIN CB Dec 21, 2024 11:06 AM OPTOMETRY OUTPATIE NT NOTE: LOCAL TITLE: OPTOMETRY OUTPATIENT CLINIC NOTE (T) STANDARD TITLE: OPTOMETRY OUTPATIENT NOTE DATE OF NOTE: DEC 21, 2024@11:06 ENTRY DATE: DEC 21, 2024@11:06:49 AUTHOR: LB FARNSWORTH EXP COSIGNER: URGENCY: STATUS: COMPLETED 89 yowm here today for YORDAN and OCT Last Eye exam: March 01, 2024 CERVANTES/OPT Dr Farnsworth Chief Complaint: patient voices no visual complaints or concerns today Ocular History: (+) Refractive Amblyopia OS (+) MGD OU (+) Cat OU (+) Moderate CDs OU LIOP: OD:18 OS:20 LCD: OD:0.60 OS:0.50 Pach: OD:502 OS:529 Ocular Medications: None Family Ocular History: Blindness/glaucoma/ARMD (-) Medical History: Atrial fibrillation 07/01/2023 Exposure to potentially hazardous substance 06/30/2023 History of placement of stent for coronary 06/15/2022 CAD - Coronary artery disease 06/15/2022 Gastroesophageal reflux disease 06/09/2017 Sensorineural hearing loss, bilateral 01/26/2017 Family History of Ischemic Heart Disease 03/25/2010 History of alcohol abuse 07/01/2023 Tinnitus 12/10/2016 Disorder of lumbar disc 07/01/2023 Benign essential hypertension 05/25/2016 Osteoarthritis 05/25/2016 DEBORAH JETER Gout 05/25/2016 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 Active Medications: CELECOXIB 200MG CAP TAKE ONE CAPSULE BY MOUTH TWICE A ACTIVE CETIRIZINE HCL 10MG TAB TAKE ONE TABLET BY MOUTH ACTIVE EPI(EQV-ADRENACLICK)0.3MG/0.3ML INJCTR INJECT ACTIVE FUROSEMIDE 20MG TAB TAKE ONE TABLET BY MOUTH EVERY ACTIVE OMEPRAZOLE 20MG EC CAP TAKE ONE CAPSULE BY MOUTH ACTIVE UREA 10% LOTION APPLY A SUFFICIENT AMOUNT EXTERNALLY ACTIVE VALSARTAN 320MG TAB TAKE ONE TABLET BY MOUTH EVERY ACTIVE Non-VA ACETAMINOPHEN TAB 1000MG MOUTH THREE TIMES A ACTIVE Non-VA ATORVASTATIN CALCIUM 40MG TAB 40MG MOUTH AT ACTIVE Non-VA BETAMETHASONE DIPR 0.05%/CLOTRIMAZOLE 1% ACTIVE Non-VA CAMPHOR/MENTHOL/METHYL SALICYLATE PATCH ONE ACTIVE Non-VA CYANOCOBALAMIN 1000MCG/ML INJ 1ML (1000MCG) ACTIVE Non-VA FAMOTIDINE TAB 10MG MOUTH EVERY DAY NEEDED ACTIVE Non-VA LACTOBACILLUS ACIDOPHILUS CHEW TAB 1 TABLET BY ACTIVE Non-VA METOPROLOL SUCCINATE 50MG SA TAB 50MG MOUTH ACTIVE Non-VA METOPROLOL TARTRATE 25MG TAB 12.5MG MOUTH ACTIVE Allergies: CIPROFLOXACIN PENICILLIN INSECT STINGS Current Rx: OD: +1.75 -2.00 X077 OS: +1.75 -2.00 X081 ADD: +2.75 VA: sRx OD: 20/30 PH: 20/25 OS: 20/80 PH: 20/70 EOMs: FULL OU PUPILS: ERRL -APD OU CF: FULL OU Refraction: OD: +2.50 -2.50 x090 VA: 20/20-1 OS: Balance (+4.75) VA: 20/60 ADD: +2.75 Slit Lamp Exam: Lids and lashes: clear OU Conjunctiva: clear OU Cornea: clear OU Anterior chamber: d/q OU Angles: 4 n/t OU Iris: clear, (-) aidan OU Lens: OD: 3 NS OS: 3 NS Obtained informed consent from patient for use of DPA's, educated patient about side effects. 1 gt. Fluress OU, 1 gt. 1.0% [place]. OU, 1 gt. 2.5 % Phenyl. OU @ 11:38 AM Tonometry (A): @ 11:38 AM OD/OS: 17/ (12/21/24) DFE: C/D: OD: 0.60/0.60 c temp thinning OS: 0.50/0.50 Posterior pole: dot hemes along inf arcades OD, clear OS Vessels: normal course/caliber OU Vitreous: clear OU Periphery: (-) holes/tears 360 OU OCT: V CD ratio; Avg RNFL thickness OD: 0.49; 106 OS: 0.51; 106 Assessment/Plan: 1. Hyperopia and astigmatism c presb OU. Rx released to [facility]. 2. Refractive Amblyopia OS - stable. Monitor. 3. Nuclear Cat OU - stable. Monitor. 4. 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 Monitor 1 year c YORDAN and OCT watching for any changes. 5. Isolated BRVO OD likely related to recent hypertensive IA episode. Monitor 1 month c DFE, Photos and OCT watching for any changes. RTC STAT c any changes in vision. RTC: 1 months DFE, Photos and OCT /es/ LB FARNSWORTH SPECIALTY MANUFACTURING SUPERVISOR Signed: 12/21/2024 12:56 LB FARNSWORTH [facility]
--- OUTSIDE RECORDS SUMMARY | 2025-01-24 07:00 | XMS_ITS | Encounter Summary ---
Author Name [facility] Address [address] [place] [address] Care Team Providers Care Geological Technical Officer Name Role Phone HARISH HANNA Primary Care [...] Policy Heck's Name Patient's Relationship to Policy Ehck AARP HEALTH CARE OPTIONS MEDICARE SUPPLEMEN YANET PLAN J Apr 17, 2002 [id number] [phone] DAGG,WILL JERAD PATIENT AARP MED SUPP MEDICARE SUPPLEMEN YANET PLAN J Apr 17, 2002 PLAN J [id number] DAGG,WILL JERAD PATIENT MEDICARE (WNR) MEDICARE (M) PART B February 15, 2002 PART B [id number] DAGG,WILL JERAD PATIENT MEDICARE (WNR) MEDICARE (M) PART A February 15, 2002 PART A [id number] [phone] DAGG,WILL JERAD PATIENT MEDICARE (WNR) MEDICARE (M) PART B February 15, 2002 PART B [id number] [phone] DAGG,WILL JERAD PATIENT MEDICARE (WNR) MEDICARE (M) PART A February 15, 2002 PART A [id number] DAGG,WILL JERAD PATIENT Selected Encounter This section includes the information on record at [place] for the Encounter. Date/Time Encounter Type Encounter Description Reason Pro vider Source Jan 24, 2025 11:00 AM Outpatient Encounter OPTOMETRY IHE Encounter Template Text not used by [place] Plan of Treatment: Future Appointments (+ 6 months) and Future Tests (+/- 45 days) The Plan of Treatment section includes future care activities for the patient from all [place] treatmentfacilities. This section includes future appointments and future orders which are active, pending or scheduled. Future Appointments This section includes appointments that were scheduled to occur 6 months from the date of the Encounter, up to a maximum of 20 appointments. The data comes from all [place] treatment facilities. Appointment Date/Time Appointment Type Appointme nt Facility Name February 26, 2025 10:30 AM AMBULATORY - SURGERY [facility] March 13, 2025 10:30 AM [facility] Jun 27, 2025 11:00 AM AMBULATORY - NONE [facility] Jul 04, 2025 11:00 AM AMBULATORY - NONE [facility] Social History: Smoking Status (Most current) and Tobacco Use (All prior to encounter date) This section includes the most current, and the historical, smoking and tobacco- related health factors from the [place] facility where the Encounter took place. Current Smoking Status This section includes the most current smoking, or tobacco-related health factor, from the [place] facility where the Encounter took place. Date/Time Current Smoking Status Comment Facil ity Jun 30, 2024 11:00 AM VA-TOBACCO FORMER USER [facility] Tobacco Use History This section includes a history of the smoking, or tobacco-related health factors, that were collected on or before the date of the Encounter. The data comes from the [place] facility where the Encounter took place. Date/Time Smoking Status/Tobacco Use Comment F acility Jun 30, 2024 11:00 AM VA-TOBACCO QUIT 15 YRS OR MORE [facility] Jun 30, 2023 10:30 AM VA-TOBACCO FORMER USER [facility] Jun 30, 2023 10:30 AM VA-TOBACCO QUIT 15 YRS OR MORE [facility] Dec 15, 2021 01:30 PM VA-TOBACCO FORMER USER [facility] Dec 15, 2021 01:30 PM VA-TOBACCO QUIT 15 YRS OR MORE [facility] May 29, 2019 10:41 AM VA-TOBACCO FORMER USER [facility] May 29, 2019 10:41 AM VA-TOBACCO QUIT 15 YRS OR MORE [facility] Jan 07, 2009 01:17 PM QUIT TOBACCO >7 YEARS AGO [facility] Jan 30, 2008 08:39 AM QUIT TOBACCO >7 YEARS AGO [facility] Jan 20, 2007 08:31 AM QUIT TOBACCO >7 YEARS AGO [facility] Jul 12, 2006 08:59 AM TOBACCO FORMER USE R MORE 12 MONTHS QUIT SMOKING 25 YEARS AGO [facility] Oct 08, 2005 09:19 AM TOBACCO FORMER USE R MORE 12 MONTHS quit [facility] Dec 19, 2004 08:23 AM TOBACCO FORMER USE R MORE 12 MONTHS Quit about 20 years ago[facility] March 04, 2004 02:45 PM TOBACCO FORMER USE R MORE 12 MONTHS QUIT IN 1981 [facility] Sep 01, 2002 08:54 AM TOBACCO FORMER USE R LESS 12 MONTHS NOT IN 20 YEARS [facility] Sep 01, 2002 08:54 AM TOBACCO FORMER USE R MORE 12 MONTHS NOT IN 20 YEARS [facility] Jan 06, 2001 09:05 AM TOBACCO FORMER USE R LESS 12 MONTHS [facility] Jan 06, 2001 09:05 AM TOBACCO FORMER USE R MORE 12 MONTHS [facility] Encounter Notes: All associated encounter notes This section contains the clinical notes associated to the Encounter. Date/Time Encounter Note(s) Provider Source Jan 24, 2025 11:27 AM NO SHOW NOTE: LOCAL TITLE: OPTOMETRY NO SHOW NOTE (T) STANDARD TITLE: NO SHOW NOTE DATE OF NOTE: JAN 24, 2025@11:27 ENTRY DATE: JAN 24, 2025@11:28 AUTHOR: LB HEWITT EXP COSIGNER: URGENCY: STATUS: COMPLETED Patient did not keep scheduled appointment. /carson/ LB HEWITT ROBOT OPERATOR Signed: 01/24/2025 11:28 LB HEWITT [facility]
--- OUTSIDE RECORDS SUMMARY | 2025-02-26 06:30 | XMS_ITS | Encounter Summary ---
Author Name [facility] [place] [facility] [place] [facility] [facility] [place] Address [address] [place] [address] Care Team Providers Care Enamel Sprayer Name Role Phone HARISH HANNA Primary Care [...] SUPPLEMEN YANET PLAN J Apr 17, 2002 [id number] [phone] DAGG,WILL JERAD PATIENT AARP MED SUPP MEDICARE SUPPLEMEN YANET PLAN J Apr 17, 2002 PLAN J [id number] DAGG,WILL JERAD PATIENT MEDICARE (WNR) MEDICARE (M) PART B February 15, 2002 PART B [id number] DAGG,WILL JERAD PATIENT MEDICARE (WNR) MEDICARE (M) PART A February 15, 2002 PART A [id number] DAGG,WILL JERAD PATIENT MEDICARE (WNR) MEDICARE (M) PART A February 15, 2002 PART A [id number] [phone] DAGG,WILL JERAD PATIENT MEDICARE (WNR) MEDICARE (M) PART B February 15, 2002 PART B [id number] DAGG,WILL JERAD PATIENT Selected Encounter This section includes the information on record at [place] for the Encounter. Date/Time Encounter Type Encounter Description Reason Provider Source February 26, 2025 10:30 AM OFFICE O/P EST MOD 30 MIN OPTOMETRY ICD-10-CM H40.013 Open angle with borderline findings, low risk, bilateral KASHLB IHGurmeet Encounter Template Text not used by [facility] Assessments - Encounter Diagnoses This section includes the primary and secondary diagnoses documented for the Encounter. Date/Time Primary/Secondary Diagnosis Diagnosis Name Provider Source March 09, 2025 03:30 PM PRIMARY Open angle with borderline findings, low risk, bilateral LB FARNSWORTH March 09, 2025 03:30 PM SECONDARY Age-related nuclear cataract, bilateral LB FARNSWORTH March 09, 2025 03:30 PM SECONDARY Unspecified amblyopia, left eye LB FARNSWORTH Plan of Treatment: Future Appointments (+ 6 months) and Future Tests (+/- 45 days) The Plan of Treatment section includes future care activities for the patient from all [place] treatmentfacilities. This section includes future appointments and future orders which are active, pending or scheduled. Future Appointments This section includes appointments that were scheduled to occur 6 months from the date of the Encounter, up to a maximum of 20 appointments. The data comes from all [place] treatment facilities. Appointment Date/Time Appointment Type Appointme nt Facility Name March 13, 2025 10:30 AM AMBULATORY - NONE [facility] Jun 27, 2025 11:00 AM AMBULATORY - NONE [facility] Jul 04, 2025 11:00 AM AMBULATORY - NONE [facility] Social History: Smoking Status (Most current) and Tobacco Use (All prior to encounter date) This section includes the most current, and the historical, smoking and tobacco- related health factors from the VA facility where the Encounter took place. Current Smoking Status This section includes the most current smoking, or tobacco-related health factor, from the [place] facility where the Encounter took place. Date/Time Current Smoking Status Beverley peck Jun 30, 2024 11:00 AM VA-TOBACCO QUIT 15 YRS OR MORE [facility] Tobacco Use History This section includes a history of the smoking, or tobacco-related health factors, that were collected on or before the date of the Encounter. The data comes from the [place] facility where the Encounter took place. Date/Time Smoking Status/Tobacco Use Comment F acility Jun 30, 2024 11:00 AM VA-TOBACCO QUIT 15 YRS OR MORE [facility] Jun 30, 2023 10:30 AM VA-TOBACCO FORMER USER [facility] Jun 30, 2023 10:30 AM VA-TOBACCO QUIT 15 YRS OR MORE [facility] Dec 15, 2021 01:30 PM VA-TOBACCO FORMER USER [facility] Dec 15, 2021 01:30 PM VA-TOBACCO QUIT 15 YRS OR MORE [facility] May 29, 2019 10:41 AM VA-TOBACCO FORMER USER [facility] May 29, 2019 10:41 AM VA-TOBACCO QUIT 15 YRS OR MORE [facility] Jan 07, 2009 01:17 PM QUIT TOBACCO >7 YEARS AGO [facility] Jan 30, 2008 08:39 AM QUIT TOBACCO >7 YEARS AGO [facility] Jan 20, 2007 08:31 AM QUIT TOBACCO >7 YEARS AGO [facility] Jul 12, 2006 08:59 AM TOBACCO FORMER USE R MORE 12 MONTHS QUIT SMOKING 25 YEARS AGO [facility] Oct 08, 2005 09:19 AM TOBACCO FORMER USE R MORE 12 MONTHS quit ' [facility] Dec 19, 2004 08:23 AM TOBACCO FORMER USE R MORE 12 MONTHS Quit about 20 years ago. [facility] March 04, 2004 02:45 PM TOBACCO FORMER USE R MORE 12 MONTHS QUIT IN 1982 [facility] Sep 01, 2002 08:54 AM TOBACCO FORMER USE R LESS 12 MONTHS NOT IN 20 YEARS [facility] Sep 01, 2002 08:54 AM TOBACCO FORMER USE R MORE 12 MONTHS NOT IN 20 YEARS [facility] Jan 06, 2001 09:05 AM TOBACCO FORMER USE R LESS 12 MONTHS [facility] Jan 06, 2001 09:05 AM TOBACCO FORMER USE R MORE 12 MONTHS [facility] Encounter Notes: All associated encounter notes This section contains the clinical notes associated to the Encounter. Date/Time Encounter Note(s) Provider Source February 26, 2025 10:32 AM OPHTHALMOLOGY CONS ULT: LOCAL TITLE: OPHTHALMIC IMAGING NOTE (C) STANDARD TITLE: OPHTHALMOLOGY CONSULT DATE OF NOTE: FEBRUARY 26, 2025@10:32 ENTRY DATE: FEBRUARY 26, 2025@10:32:26 AUTHOR: JOHN MARROQUIN EXP COSIGNER: LB FARNSWORTH URGENCY: STATUS: COMPLETED Attached are Ophthalmic images. /carson/ JOHN MARROQUIN OPTOMETRY MANAGER EXPRESS Signed: 02/26/2025 10:32 /es/ LB FARNSWORTH CUFF CUTTER Cosigned: 02/26/2025 10:42 JOHN MARROQUIN [facility] February 26, 2025 10:24 AM OPTOMETRY NOTE: LOCAL TITLE: OPTOMETRY MANAGER EXPRESS NOTE STANDARD TITLE: OPTOMETRY NOTE DATE OF NOTE: FEBRUARY 26, 2025@10:24 ENTRY DATE: FEBRUARY 26, 2025@10:24:26 AUTHOR: JOHN MARROQUIN EXP COSIGNER: LB FARNSWORTH URGENCY: STATUS: COMPLETED 89 Year old vet here today 1 months DFE, Photos and OCT Last Eye exam: Mar 01 2024 CERVANTES/OPT Dr Farnsworth Chief Complaint: patient voices distance vision has decreased Ocular History: (+) Refractive Amblyopia OS (+) MGD OU (+) Cat OU (+) Moderate CDs OU LIOP: OD:17 OS:21 LCD: OD:0.60 OS:0.50 Pach: OD:502 OS:529 Ocular [...] CIPROFLOXACIN PENICILLIN INSECT STINGS Current Rx: OD: +2.50 -2.75 X89 OS: +2.75 -2.75 X87 ADD: +3.00 VA: sRx OD: 20/40 PH: 20/30 OS: 20/70 PH: 20/60 EOMs: FULL OU PUPILS: ERRL -APD OU CF: FULL OU /carson/ JOHN MARROQUIN OPTOMETRY MANAGER EXPRESS Signed: 02/26/2025 10:24 /carson/ LB FARNSWORTH CUFF CUTTER Cosigned: 02/26/2025 10:31 JOHN MARROQUIN CB February 26, 2025 10:12 AM OPTOMETRY OUTPATIE NT NOTE: LOCAL TITLE: OPTOMETRY OUTPATIENT CLINIC NOTE (T) STANDARD TITLE: OPTOMETRY OUTPATIENT NOTE DATE OF NOTE: FEBRUARY 26, 2025@10:12 ENTRY DATE: FEBRUARY 26, 2025@10:12:50 AUTHOR: LB FARNSWORTH EXP COSIGNER: URGENCY: STATUS: COMPLETED 89 yowm here today for 1 month DFE, Photos and OCT Last Eye exam: March 01, 2024 CERVANTES/OPT Dr Farnsworth Chief Complaint: patient voices distance vision has decreased Ocular History: (+) Refractive Amblyopia OS (+) MGD OU (+) Cat OU (+) BRVO OD (+) Moderate CDs OU LIOP: OD:17 OS:21 LCD: OD:0.60 OS:0.50 Pach: OD:502 OS:529 Ocular [...] CIPROFLOXACIN PENICILLIN INSECT STINGS Current Rx: OD: +2.50 -2.75 X89 OS: +2.75 -2.75 X87 ADD: +3.00 VA: sRx OD: 20/40 PH: 20/30 OS: 20/70 PH: 20/60 EOMs: FULL OU PUPILS: ERRL -APD OU CF: FULL OU Slit Lamp Exam: Lids and lashes: clear OU Conjunctiva: clear OU Cornea: clear OU Anterior chamber: d/q OU Angles: 4 n/t OU Iris: clear, (-) aidan OU Lens: OD: 3 NS OS: 3 NS Obtained informed consent from patient for use of DPA's, educated patient about side effects. 1 gt. Fluress OU @ 10:50 AM (pt deferred dilation because is sick and needed to get home) Tonometry (A): @ 10:50 AM OD/OS: 20/24 (02/26/25) OCT: V CD ratio; Avg RNFL thickness OD: 0.46; 101 OS: 0.53; 108 Assessment/Plan: 1. Refractive Amblyopia OS - stable. Monitor. 2. Nuclear Cat OU causing further vision decrease. Pt will consider CE using [facility] care in the future; will notify clinic when ready. 3. 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 Monitor 1 year c YORDAN and OCT watching for any changes. 4. h/o Isolated BRVO OD likely related to recent hypertensive [place] episode. Monitor c DFE, Photos and OCT watching for any changes. RTC STAT c any changes in vision. RTC: 1 year YORDAN and OCT /es/ LB FARNSWORTH CUFF CUTTER Signed: 02/26/2025 11:13 LB FARNSWORTH [facility]
--- OUTSIDE RECORDS SUMMARY | 2025-03-13 06:30 | XMS_ITS | Encounter Summary ---
Author Name [facility] Organization [facility] [place] Address [address] [place] [address] Care Team Providers Care Knocker Out Name Role Phone HARISH HANNA Primary Care [...] SUPPLEMEN YANET PLAN J [birth year] 17, 2002 [id number] [phone] DAGG,WILL JREAD PATIENT AARP MED SUPP MEDICARE SUPPLEMEN YANET PLAN J Apr 17, 2002 PLAN J [id number] DAGG,WILL JERAD PATIENT MEDICARE (WNR) MEDICARE (M) PART B February 15, 2002 PART B [id number] DAGG,WILL JERAD PATIENT MEDICARE (WNR) MEDICARE (M) PART A February 15, 2002 PART A [id number] DAGG,WILL JERAD PATIENT MEDICARE (WNR) MEDICARE (M) PART A February 15, 2002 PART A [id number] [phone] DAGG,WILL JERAD PATIENT MEDICARE (WNR) MEDICARE (M) PART B February 15, 2002 PART B [id number] DAGG,WILL JERAD PATIENT Selected Encounter This section includes the information on record at [place] for the Encounter. Date/Time Encounter Type Encounter Description Reason Provider Source March 13, 2025 10:30 AM HEARING AID FITTING/CHECKIN G AUDIOLOGY ICD-10-CM Z46.1 Encounter for fitting and adjustment of hearing aid IKE CAMPOS Gurmeet Encounter Template Text not used by VA Assessments - Encounter Diagnoses This section includes the primary and secondary diagnoses documented for the Encounter. Date/Time Primary/Secondary Diagnosis Diagnosis Name Provider Source March 13, 2025 12:05 PM PRIMARY Encounter for fitting and adjustment of hearing aid IKE CAMPOS [facility] Plan of Treatment: Future Appointments (+ 6 months) and Future Tests (+/- 45 days) The Plan of Treatment section includes future care activities for the patient from all [place] treatmentfacilities. This section includes future appointments and future orders which are active, pending or scheduled. Future Appointments This section includes appointments that were scheduled to occur 6 months from the date of the Encounter, up to a maximum of 20 appointments. The data comes from all [place] treatment facilities. Appointment Date/Time Appointment Type Appointme nt Facility Name Jun 27, 2025 11:00 AM AMBULATORY - NONE [facility] Jul 04, 2025 11:00 AM AMBULATORY - NONE [facility] Encounter Notes: All associated encounter notes This section contains the clinical notes associated to the Encounter. Date/Time Encounter Note(s) Provider Source March 13, 2025 12:02 PM AUDIOLOGY NOTE: LOCAL TITLE: AUDIOLOGY HEARING AID REPAIR (T) STANDARD TITLE: AUDIOLOGY NOTE DATE OF NOTE: MARCH 13, 2025@12:02 ENTRY DATE: MARCH 13, 2025@12:02:40 AUTHOR: IKE CAMPOS EXP COSIGNER: URGENCY: STATUS: COMPLETED [place] arrived 40 minutes late and was accomodated for a repair appointment. -Tubing change for 2024 Phonak BTEs ACTIONS TAKEN: Tubing/earhooks were replaced binaurally. Final listening check is good. Increased overall gain by 5 dB. [place] reports improvement in sound quality. He declines further assistance. Recommendations: Return for tubing change every 3 months. /carson/ IKE CAMPOS FIELD RECORDER Signed: 03/13/2025 12:05 IKE CAMPOS [facility]
--- OUTSIDE RECORDS SUMMARY | 2025-03-16 10:00 | XMS_ITS ---
Author Organization [facility] in [place] Address [address] [place] [address] Care Team Providers Care Computer Systems Auditor Name Role Phone Rohit Nicolas Primary Care Provider Joan Andrews Unavailable [phone] Allergies Allergen (clinical drug ingredient) Drug/Non Drug Allergy documented on EMR Reaction Allergy Type Onset Date Status ciprofloxacin Cipro hives Drug Allergy Act noelle Bee Sting anaphylaxis Allergy Active Penicillin Unknown Drug Allergy Active REASON FOR VISIT Francoisdante pt- cold s/s- fatigued, some weakness, coughing, runny nose, stuffy nose- cold and Severe Cold meds- didnt sleep last night due to meds- this AM worse, [place] been outside [place] farm Medications Medication SIG (Take, Route, Frequency, Duration) Notes Start Date End Date Status Valsartan 320 MG 1 tablet Orally Once a day for 14 days Active Vitamin D3 50 MCG (1999) TAKE 1 CAPSULE BY MOUTH DAILY for 90 Active Protonix 40 MG 1 tablet Orally bid for 30 days 02/17/2023 Active Sucralfate 1 GM TAKE 1 TABLET BY ON AN EMPTY STOMACH FOUR TIMES DAILY for 30 Active Metoprolol Succinate 25 MG 1/2 Orally Once a day Active Nitroglycerin 0.4 MG 1 sl Sublingual Q 5 min as needed for chest pain PRN 11/16/2024 Active Lasix 20 MG 1 tablet Orally Once a day Active EpiPen 2-To 0.3 MG/0.3ML as directed Injection Active Fluocinolone Acetonide 0.025 % 1 application Externally Twice a day for 30 days 02/17/2023 Active Cetirizine HCl 10 MG 1 tablet Orally Onc e a day Active Cyanocobalamin 1000 MCG/ML INJECT 1 ml INTRAMUSCULARLY once a month for 30 Active CeleBREX 200 MG 1 capsule Orally Onc e a day Active Diclofenac Sodium 1 % as directed Externally Active Dicyclomine HCl 20 MG 1 tablet Orally Once Daily Patient taking every other day Active Aspirin 81 81 MG 1 tablet Orally Once a day Active Atorvastatin Calcium 40 MG 1 tablet Orally Once a day Active BD Plastipak Syringe 21G X 1 3 ML Administer 1 syringe as directed once a month for 90 Active Acidophilus Active ALPRAZolam 0.25 MG 1 tablet Orally q6h for 14 days 11/22/2024 Active Azithromycin 250 MG as directed Orally daily for 5 days take 2 tablets po on first day than 1 tablet po days 2-5 03/16/2025 Active Social History Tobacco Use: Social History Observation Description Date Details (start date - stop date) Former Smoker NA - NA Tobacco Use/Smoking Question Answer Notes Patient is a former smoker Problems Problem Type SNOMED Code ICD Code Onset Dates Problem Status W/U Status Risk Notes Problem Sinusitis (25140552) Sinusitis (J32.9) Active confirmed Vital Signs Weight 224.8 lbs 03/16/2025 Height 71 in 03/16/2025 Blood pressure systolic 138 mm Hg 03/16/20 25 Blood pressure diastolic 66 mm Hg 025 Temperature 98.5 degrees Fahrenheit 03/16/20 25 Heart Rate 73 /min 03/16/2025 BMI 31.35 kg/m2 03/16/2025 Oximetry 97 % 03/16/2025 Encounters Encounter Location Date Provider Diagnosis [facility] [address] [place] [address] 03/16/2025 Joan Darryl Sinusitis J32.9 Assessments Encounter Date Diagnosis (ICD Code) Assessment Notes Treatment Notes Treatment Clinical Notes Section Notes 03/16/2025 Sinusitis (ICD-10 - J32.9) rest push fluids fu if not improving, sx change Plan Of Treatment Medication Medication Name Sig Start Date Stop Date Notes Azithromycin 250 MG as directed Orally daily for 5 days 03/16/2025 take 2 tablets po on first day than 1 tablet po days 2-5 Treatment Notes Assessment Notes Sinusitis rest push fluids fu if not improving, sx change Next Appt Details Follow Up: prn, Reason: Progress Notes * Macario ASH RDOB: [birth year] (89 yo M)Acc No.[id number]:03/16/2025 Progress Note Patient: Macario ELLIS Provider: Feliberto Andrews ([facility]), HORACIO :1935 A ge:89 Y S ex:Male Date:03/16/2025 Address:[address] [place] [address], [facility] Pcp:Rohit Nicolas Check In:01:47 PM ESTCheck O ut:02:10 PM EST Subjective: * Chief Complaints: * 1 . Hoy pt- cold s/s- fatigued, some weakness, coughing, runny nose, stuffy nose- cold and Severe Cold meds- didnt sleep last night due to meds- this AM worse. 2. 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 * HPI: G eneral: tired, weak yesterday coughing yesterday back hurts head stuffy today, coughing, lethargic. * ROS: G eneral/Constitutional: Fatigue a nd gen weakness. F ever d enies. H eadache d enies. W eight loss d enies. O phthalmologic: Discharge d enies. E ye Pain d enies. I tching and redness d enies. E NT: Nasal discharge d enies. N bebe congestion a dmits.?Sore throat a dmits. C ardiovascular: Chest tightness/ heavy pressure d enies. R apid heart rate d enies. S welling of extremities d enies. C hest pain d enies. ? R espiratory: Productive cough d enies. C hest pain d enies. C ough a dmits. S hortness of breath d enies. W heezing d enies. G astrointestinal: Abdominal pain d enies. C onstipation d enies. D ecreased appetite d enies. D iarrhea d enies. N ausea d enies. V omiting?denies. G enitourinary: Urinary incontinence d enies. P ainful urination d enies. M usculoskeletal: Back pain d enies. N atiya pain d enies. M uscle aches d enies. S kin: Rash d enies. S kin lesion(s) d enies. ? * Active Problem List E78.2 Mixed hyperlipidemia Modified On:02/12/2023 Status:confirmed I21.3 ST elevation (STEMI) myocardial infarction of unspecified site Modified On:02/12/2023 Status:confirmed I45.5 Other specified hear t block Modified On:02/12/2023 Status:confirmed I25.10 CAD (coronary artery disease) Modified On:11/04/2023 Status:confirmed I10 Essential hypertensi on Modified On:07/14/2023 Status:confirmed [...] AF (atrial fibrillat ion) Modified On:02/12/2023 Status:confirmed F10.21 History of alcoholis m Modified On:02/12/2023 Status:confirmed K22.2 Schatzki's ring Modified On:02/12/2023 Status:confirmed H70.90 Mastoiditis Modified On:02/12/2023 Status:confirmed K21.9 Gastro-esophageal re flux disease Modified On:11/04/2023 Status:confirmed N40.0 Benign hypertrophy o f prostate Modified On:02/17/2023 Status:confirmed M54.50 Low back pain, unspe cified Modified On:02/12/2023/U Status:confirmed M54.59 Other low back pain Modified On:02/12/2023/U Status:confirmed K58.9 Irritable bowel Modified On:12/22/2023/U Status:confirmed F41.9 Anxiety Modified On:12/22/2023/U Status:confirmed G25.81 Restless leg syndrom e Modified On:12/22/2023/U Status:confirmed J32.9 Sinusitis Modified On:03/16/2025/U Status:confirmed * Medical History: A cute bronchitis, Lumbar spondylolysis, DDD (degenerative disc disease), lumbar, Other low back pain, Mixed hyperlipidemia, AF (atrial fibrillation), CAD (coronary artery disease), Mastoiditis, Benign hypertrophy of prostate, ST elevation (STEMI) myocardial infarction of unspecified site, Other specified heart block, Low back pain, unspecified, Near syncope, Hemorrhoids, Diverticulosis, Schatzki's ring, Hiatal hernia, Allergic rhinitis, seasonal, Gastro-esophageal reflux disease, Essential hypertension, History of alcoholism. * Surgical History: E GD/Colon 2018, Stent Placement Dr Sparrow- [facility] ([facility]) 04/11/2022. * Hospitalization/Major Diagno stic Procedure: c hest pain 2021, Chest Pain 10/2024. * Family History: F ather: , lung cancer at 61. M other: , overdose at 67. B rother(s): alive, diagnosed with Diabetes mellitus without mention of complication, type II or unspecified type, not stated as uncontrolled, Unspecified essential hypertension, Unspecified heart disease. 1 brother(s) . . * Social History: T obacco Use: T obacco Use/Smoking P atient is a f ormer smoker * Medications: T aking Acidophilus , Taking ALPRAZolam 0.25 MG Tablet 1 tablet Orally q6h , Taking Aspirin 81(Aspirin) 81 MG Tablet Delayed Release 1 tablet Orally Once a day , Taking Atorvastatin Calcium 40 MG Tablet 1 tablet Orally Once a day , Taking BD Plastipak Syringe(Syringe/Needle (Disp)) 21G X 1 3 ML Miscellaneous Administer 1 syringe as directed once a month , Taking CeleBREX(Celecoxib) 200 MG Capsule 1 capsule Orally Once a day , Taking Cetirizine HCl 10 MG Tablet 1 tablet Orally Once a day , Taking Cyanocobalamin 1000 MCG/ML Solution INJECT 1 ml INTRAMUSCULARLY once a month , Taking Diclofenac Sodium 1 % Gel as directed Externally , Taking Dicyclomine HCl 20 MG Tablet 1 tablet Orally Once Daily Patient taking every other day, Taking EpiPen 2-To(EPINEPHrine) 0.3 MG/0.3ML Solution Auto-injector as directed Injection , Taking Fluocinolone Acetonide 0.025 % Ointment 1 application Externally Twice a day , Taking Lasix(Furosemide) 20 MG Tablet 1 tablet Orally Once a day , Taking Metoprolol Succinate 25 MG Capsule ER 24 Hour Sprinkle 1/2 Orally Once a day , Taking Nitroglycerin 0.4 MG Tablet Sublingual 1 sl Sublingual Q 5 min as needed for chest pain , Notes to Pharmacist: PRN, Taking Protonix(Pantoprazole Sodium) 40 MG Tablet Delayed Release 1 tablet Orally bid , Taking Sucralfate 1 GM Tablet TAKE 1 TABLET BY MOUTH ON AN EMPTY STOMACH FOUR TIMES DAILY , Taking Valsartan 320 MG Tablet 1 tablet Orally Once a day , Taking Vitamin D3 50 MCG (1999 UT) Capsule TAKE 1 CAPSULE BY MOUTH DAILY , Discontinued Hyoscyamine Sulfate 0.125 MG Tablet Sublingual 1-2 tabs SL SL every 4 hrs PRN abd pain , Medication List reviewed and reconciled with the patient * Allergies: C ipro: hives - Criticality High, Bee Sting: anaphylaxis - Criticality High, Penicillin. Objective: * Vitals: W t:224.8lbs, Ht: 71 in, BP:138/66mm Hg, Temp:98.5F, HR:73/min, BMI:31.35Index, Oxygen sat %:97%, Ht-cm: 180.34 cm, Wt-k.97 kg. * Examination: G eneral Examinations: GENERAL APPEARANCE: a lert and oriented, i n no acute distress. EYES: conjunctiva normal, sclera non-icteric. ENT: t hroat red. NOSE: m ild congestion. LYMPH NODES: normal, no cervical, axillary, or inguinal adenopathy. CARDIO: regular rate and rhythm, S1, S2 normal. ABDOMEN: s oft, nontender. MUSCULOSKELETAL: G ait and station normal. SKIN: warm and dry. Assessment: * Assessment: 1. S inusitis - J32.9 (Primary) Plan: * Treatment: * Preventive Medicine: Screenings/Counseling: B [place] ACTION PLAN Above Normal BMI Follow-up D ietary management education, guidance, and counseling * Follow Up: p rn * * Electronically signed by Lise Andrews , WATER POLLUTION SPECIALIST, MANAGER OF MAINTENANCE.REHAB AID.[id number] on 03/19/2025 at 03:28 PM EDT Sign off status: Completed Visit Status: C HK (Check Out) true * Provider: Feliberto Andrews ([facility]), REHAB AID Date: 0 03/16/2025 Generated for Tracei austin/Jad/eTransmitting on: 0 03/23/2025 10:07 AM EDT History and Physical Notes * HPI (History of Present Illness) Category Sub-Category Detail Notes Category Not es General tired, weak yesterday coughing yesterday back hurts head stuffy today, coughing, lethargic Examination Category Sub-Category Detail Notes Category Not es General Examinations GENERAL APPEARANCE: alert a nd oriented, in no acute distress EYES: conjunctiva normal, sclera non-icteric NOSE: mild congestion CARDIO: regular rate and rhy thm, S1, S2 normal LUNGS: ABDOMEN: soft, nontender SKIN: warm and dry BACK: MUSCULOSKELETAL: Gait and station nor mal LYMPH NODES: normal, no cervical, axillary, or inguinal adenopathy ENT: throat red
--- OUTSIDE RECORDS SUMMARY | 2025-03-16 20:09 | XMS_ITS | Continuity of Care Document ---
Author Organization [facility] Address [address] [place] [place] [address] Phone Care Team Providers Care Dog Raiser Name Role Phone Cholo Nicolas MD Primary Care Provider Gisele Schilling APRN Attending Provider Care Teams Patient Care Team Team Status: Active Member Role Status Margaux Nicolas MD Primary Care Provider Active Visit Care Team Team Status: Active Member Role Status Margaux Nicolas MD Primary Care Provider Active Start: January 12, 2025 Gisele Schilling APRN Referring Provider, Other Provider Active Start: January 12, 2025 Marlee Disla MD Attending Provider Active Start: January 12, 2025 Patient Care Team Team Status: Inactive Member Role Status Margaux Nicolas MD Primary Care Provider Active Start: February 12, 2025 End: February 12, 2025 Gisele Schilling APRN Attending Provider Active S tart: February 12, 2025 End: February 12, 2025 Visit Care Team Team Status: Active Member Role Status Dates Cholo Nicolas MD Primary Care Provider Active Start: February 21, 2025 Gisele Schilling APRN Other Provider Active Start : February 21, 2025 Marlee Disla MD Attending Provider Active Start: February 21, 2025 Patient Care Team Team Status: Active Member Role Status Dates Cholo Nicolas MD Primary Care Provider Active Start: March 16, 2025 Gisele Schilling APRN Other Provider Active Start : March 16, 2025 Marlee Disla MD Attending Provider Active Start: March 16, 2025 Patient Care Team Team Status: Inactive Member Role Status Dates Cholo Nicolas MD Primary Care Provider Active Start: March 16, 2025 End: March 16, 2025 Gisele Schilling APRN Attending Provider Active S tart: March 16, 2025 End: March 16, 2025 Chief Complaint and Reason for Visit Chief Complaint Admit Date Afib/Flutter January 12, 2025 10: 59am Afib/Flutter February 12, 2025 1:1 4pm Afib/Flutter February 21, 2025 7:33pm I48 Z95.81 March 16, 2025 10:30 am I48 Z95.81 March 16, 2025 1:23p m Allergies, Adverse Reactions, Alerts Allergen Type Severity Reaction Last Updated Verified Status alcohol Allergy Unknown Unknown Reaction December 13, 2024 11:48am Yes Active bee venom protein (honey bee) Allergy Unknown Swelling of Lip/Tongue/Throa t December 13, 2024 11:48am Yes Active ciprofloxacin Allergy Unknown Unknown Reaction Febru milton 2024 11:48am Yes Active Penicillins Allergy Unknown Unknown Reaction Februar y 2024 11:48am Yes Active Social History Smoking Status Status Start Date End Date Date of Observa tion Ex-smoker (finding) November 13, 2024 12:33pm Observation Status Observation Response Date of Response Patient Sex Male March 17, 2025 1 2:03am Assigned Sex Male [birth year] 7 Family History Relationship Condition Age at Onset Recorded Date/T victor hugo Not Specified No pertinent family history Unknown daughter Hypertension Unknown father Malignant neoplasm Unknown Unknown mother Unknown Hypertension Unknown Problems Active Problems Medical Problem Onset Date Status Right lower quadrant abdominal pain Active C. 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 Belching Active Recent inferior myocardial infarction Active Hyperlipidemia Active Syncope Active Essential hypertension Active Paroxysmal atrial fibrillation A ctive GERD (gastroesophageal reflux disease) Active Hypertension Active ASHD (arteriosclerotic heart disease) Active Inactive/Resolved Problems Medical Problem Onset Date Status Stented coronary artery Resolved Non-ST elevation MT (NSTEMI) Res olved STEMI (ST elevation myocardial infarction) Resolved Medications Medication Status Dose Units Route Directions Qty Days St art Date Stop Date End Date Instructions Celecoxib (Celebrex) 200 mg Capsule Active 200 MG PO Daily May 03, 2019 12:00a m Amlodipine 5 mg tablet Discont inued 10 MG PO Daily May 03, 2019 12:00a m 2024 2:13p m Ranitidine Hcl (Zantac) 150 mg Tablet Discont inued 150 MG PO Daily May 03, 2019 12:00a m April 11, 2022 1:32a m Lisinopril 40 mg tablet Discont inued 40 MG PO Daily May 03, 2019 12:00a m 2024 2:14p m Omeprazole Magnesium (Prilosec Otc) 20 mg Tablet,Delay ed Release (Dr/Ec) Discont inued 20 MG PO Daily May 03, 2019 12:00a m 2024 2:14p m Diclofenac Sodium 1 % gel Active 1 APPLIC ATOR TOPICA L Four times daily as needed for Pain May 03, 2019 12:00a m Cyanocobalam in (Vitamin B-12) 1,000 mcg/mL Kit Active 1000 MCG IM every month May 03, 2019 12:00a m Sucralfate (Carafate) 1 gram tablet Discont inued 1 GM PO Four times daily 2024 1:00am 2024 4:43p m Valsartan 320 mg tablet Active 320 MG PO Daily 2024 1:00am Pantoprazole 40 mg tablet,delay ed release (DR/EC) Discont inued 40 MG PO Twice daily 2024 1:00am u 2024 12:09 pm Hyoscyamine Sulfate 0.125 mg tablet, sublingual Discont inued 0.125 MG PO EVERY 4-6 HOURS as needed for pain 2024 1:00am 2024 11:55 am 1-2 tabs Fidaxomicin (Dificid) 200 mg Tablet Discont inued 200 MG PO Twice daily 14 7 2024 1:00am 2024 11:54 am Dicyclomine 20 mg Tablet Active 20 MG PO Q4H as needed for abdominal pain or Cramping 2024 1:00am Sodium Bicarbonate 650 mg tablet Active 650 MG PO Three times daily 6 2 2024 1:00am Pantoprazole 40 mg tablet,delay ed release (DR/EC) Active 40 MG PO Daily 2024 12:08p m Cetirizine (Zyrtec) 10 mg Tablet Active 10 MG PO Daily April 11, 2022 12:00a m Lactobacillu s Acidophilus (Florajen Acidophilus) 20 billion cell Capsule Active 100 MG PO Daily April 11, 2022 12:00a m Econazole-Tr iamcinolone 1-0.1 % Combo Pack,Ointmen t And Cream Active 0 .ROUTE .COMPLEX April 11, 2022 12:00a m 1%-0.1% combo pack, 1 package topically per package directions PRN Aspirin (Children's Aspirin) 81 mg Tablet,Chewa ble Active 81 MG PO Daily April 12, 2022 12:00a m Atorvastatin 40 mg Tablet Active 40 MG PO Every evening April 12, 2022 12:00a m Ticagrelor (Brilinta) 90 mg Tablet Discont inued 90 MG PO Twice daily 60 April 12, 2022 12:00a m May 08, 2022 1:56p m Metoprolol Succinate (Toprol Xl) 50 mg tablet extended release 24 hr Discont inued 50 MG PO Daily April 12, 2022 12:00a m Rachel 21st, 2022 12:33 pm Metoprolol Succinate (Toprol Xl) 50 mg tablet extended release 24 hr Active 12.5 MG PO Daily May 07, 2022 12:33p m Clopidogrel 75 mg Tablet Discont inued 75 MG PO Daily May 08, 2022 12:00a m 2024 2:10p m Furosemide 20 mg Tablet Active 20 MG PO Daily at 0800 30 May 08, 2022 12:00a m Apixaban (Eliquis) 5 mg Tablet Discont inued 5 MG PO Twice daily 60 May 08, 2022 12:00a m 2024 2:10p m Sucralfate (Carafate) 1 gram tablet Active 1 GM PO Twice daily 2024 1:00am Immunizations Immunization Event Date Not Given Reason Dose Number [employer] Specialist Lot Number Vaccine Information Statement (VIS) Detail Tetanus, Diphtheria adult, 5 Lf pres free abs July 07, 2021 Medical Equipment Device Date Implanted Device Details Drug-eluting coronary artery stent, [id number]-coated April 11, 2022 CARLOS: [id number] Issuing Agency: [facility] Device Id: [id number] Lot Number: [id number] Drug-eluting coronary artery stent, [id number] April 11, 2022 CARLOS: [id number] Issuing Agency: [facility] Device Id: [id number] Lot Number: [id number] Advance Directives Advance Directive Response Recorded Date/ Time Advance Directives No May 01 11:21am Insurance Providers Guarantor Macario Van Address [address] [address] Contact Info. Home Phone: Payer Policy Id Coverage Id Subscriber's Name Subscriber Id Effective Date Expiration Date Medicare [id number] Macario Van [id number] [facility] Health Claims [id number] Macario Van [id number] Encounters Encounter Location(s) Arrival/Admit Date Discharge/Depart Date Provider(s) Non-patient / Non-visit [facility] January 12, 2025 10:59am Sloane Disla [facility] February 12, 2025 1:14pm February 12, 2025 1:15pm Gisele Schilling APRN Non-patient / Non-visit [facility] February 21, 2025 7:33pm Sloane Disla Non-patient / Non-visit [facility] March 16, 2025 10:30am Sloane Disla [facility] March 16, 2025 1:23pm March 16, 2025 1:24pm Gisele Schilling APRN
--- OUTSIDE RECORDS SUMMARY | 2025-03-22 12:54 | XMS_ITS ---
Author Organization [facility] [place] Address [address] [place] [address] Care Team Providers Care Can Tester Name Role Phone FidencioRohit Primary Care Provider REASON FOR VISIT no better- Encounters Encounter Location Date Provider Diagnosis [facility] [address] [place] [address] 03/22/2025 Rohit Fidencio CAD (coronary artery disease) I25.10 ; Essential hypertension I10 ; AF (atrial fibrillation) I48.91 ; Sinusitis J32.9 and Cough R05.9 Assessments Encounter Date Diagnosis (ICD Code) Assessment Notes Treatment Notes Treatment Clinical Notes Section Notes 03/22/2025 CAD (coronary artery disease) (ICD-10 - I25.10) 03/22/2025 Essential hypertension (ICD-10 - I10) 03/22/2025 AF (atrial fibrillation) (ICD-10 - I48.91) 03/22/2025 Sinusitis (ICD-10 - J32.9) 03/22/2025 Cough (ICD-10 - R05.9) Plan Of Treatment Pending Test Test Name Order Date BNP 03/22/2025 CBC AUTO DIFF 03/22/2025 PROF 14(COMP METB) 03/22/2025 XR chest 2V 03/22/2025 Gram Stain w/Sputum Cult Rflx 03/22/2025 Progress Notes * Macario VAN RDOB: [birth year] (89 yo M)Acc No.[id number]:03/22/2025 Patient: Mcaario ELLIS :1935 A ge:89 Y S ex:Male Address:[address] [place] [address], [id number] Subjective: * Chief Complaints: * N o better- * Medical History: * Surgical History: * Hospitalization/Major Diagno stic Procedure: * Medications: Objective: * Vitals: * Physical Examination: Assessment: * Assessment: 1. C AD (coronary artery disease) - I25.10 (Primary) 2 . E ssential hypertension - I10 3 . A F (atrial fibrillation) - I48.91 4 . S inusitis - J32.9 5 . C ough - R05.9 Plan: * Treatment: 2. E ssential hypertension L AB: BNP L AB: CBC AUTO DIFF L AB: PROF 14(COMP METB) L AB: Gram Stain w/Sputum Cult Rflx 3. A F (atrial fibrillation) L AB: BNP L AB: CBC AUTO DIFF L AB: PROF 14(COMP METB) L AB: Gram Stain w/Sputum Cult Rflx 4. S inusitis L AB: BNP L AB: CBC AUTO DIFF L AB: PROF 14(COMP METB) L AB: Gram Stain w/Sputum Cult Rflx 5. C ough I maging: XR chest 2V * Procedure Codes: * true * Date: Generated for Adrianne avila/Jad/eTransmitting on: 0 03/23/2025 10:06 AM EDT
--- OUTSIDE RECORDS SUMMARY | 2025-03-23 05:04 | XMS_ITS | Continuity of Care Document ---
Author Name [facility] Organization [facility] Care Team Providers Care Communications Professional Name Role Phone [facility] Unavailable Unavailable Problems Combined list of problems from Department of Defense and Veterans Affairs facilities. It does not include entries that were removed or entered in error. Problem Status Onset Date Problem Type Date of Resolution Comments Source Atrial fibrillation Active Condition [facility] Benign essential hypertension (SNOMED CT 7198739) Active Condition [facility] CAD - Coronary Artery Disease (SCT 47094685) Active Condition [facility] Disorder of lumbar disc Active Condition [facility] Diverticular disease of colon Active Condition [facility] Exposure to potentially hazardous substance Active Condition [facility] Family History of Ischemic Heart Disease (ICD-9-CM V17.3) Active Condition [facility] Gastroesophageal reflux disease Active Condition [facility] Gout (SNOMED CT 97308510) Active Condition [facility] History of alcohol abuse Active Condition Mar 25, 2010 Entered By: VIKY NUNN Comment: sober 30 yrs [facility] History of placement of stent for coronary artery disease Active Condition [facility] Osteoarthritis (SNOMED CT 107387382) Active Condition [facility] Sensorineural hearing loss, bilateral Active Condition [facility] Tinnitus (SNOMED CT 63122045) Active Condition [facility] Diagnosis: ICD-10-CM Z46.1 Encounter for fitting and adjustment of hearing aid Active Diagnosis [facility] Diagnosis: ICD-10-CM H40.013 Open angle with borderline findings, low risk, bilateral Active Diagnosis [facility] Diagnosis: ICD-10-CM 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, right eye, stable Active Diagnosis [facility] Diagnosis: ICD-10-CM Z74.1 Need for assistance with personal care Active Diagnosis [facility] Diagnosis: ICD-10-CM Z71.9 Counseling, unspecified Active Diagnosis [facility] Diagnosis: ICD-10-CM H90.3 Sensorineural hearing loss, bilateral Active Diagnosis [facility] Diagnosis: ICD-10-CM I10 Essential (primary) hypertension Active Diagnosis [facility] Diagnosis: ICD-10-CM H52.223 Regular astigmatism, bilateral Active Diagnosis [facility] Medications Combined list of outpatient medications from Department of Defense and Veterans Affairs facilities.Medications provided include 1) outpatient medications from the last 15 months, and 2) patient-reported medications. Medication Details Route Status Patient Instructions Prescription Expires Prescription Number Last Dispense Date Ordering Provider Order Date Order Qty Source ACETAMINOPH EN TAB TAKE 1000MG BY MOUTH THREE TIMES A DAY NEEDED ORAL ACTIVE MALAUGUSTDETRINH [place] 2015 [facility] ATORVASTATI N [place] 40MG TAB TAKE ONE TABLET BY MOUTH AT BEDTIME ORAL ACTIVE CYNDIRE DANIEL A 2021 [facility] BETAMETHASO NE DIPR 0.05%/CLOTR IMAZOLE 1% CREAM,TOP APPLY EXTERNAL LY TOPICA L ACTIVE CYNDIRE DANIEL A 2021 [facility] CAMPHOR/MEN THOL/METHYL SALICYLATE PATCH APPLY ONE PATCH TO EXTERNAL LY EVERY DAY NEEDED TOPICA L ACTIVE CYNDIRE DANIEL A 2021 [facility] CELECOXIB 200MG CAP TAKE ONE CAPSULE BY MOUTH EVERY DAY FOR PAIN (WITH FOOD) ORAL ACTIVE 10/05/2025 [id number] 5 CYNDIRE DANIEL A 2023 90 [facility] CELECOXIB 200MG CAP TAKE ONE CAPSULE BY MOUTH TWICE A DAY (WITH FOOD) ORAL 08/19/2024 [id number] ELBA YOUNG L 2022 180 [facility] CETIRIZINE HCL 10MG TAB TAKE ONE TABLET BY MOUTH EVERY DAY NEEDED DIRECTED FOR ALLERGIE S. ORAL ACTIVE 05/10/2025 [id number] 5 CYNDI,RE DANIEL A 2023 90 [facility] CETIRIZINE HCL 10MG TAB TAKE ONE TABLET BY MOUTH EVERY DAY NEEDED DIRECTED FOR ALLERGIE S. ORAL DISCONT INUED 03/29/2024 [id number] CYNDIRE DANIEL A 2022 90 [facility] CYANOCOBALA MIN 1000MCG/ML INJ INJECT 1ML (1000MCG ) INTRAMUS CULARLY EVERY 4 WEEKS INTRAM USCULA R ACTIVE TRINH LI 2015 [facility] EPINEPHRINE (EQV-ADRENA CLICK) 0.3MG/0.3ML INJECTOR INJECT CONTENTS OF ONE AUTO-INJ OLIVIA INTRAMUS CULARLY NEEDED FOR ALLERGIC REACTION (SEE PACKAGE INSTRUCT IONS) INTRAM USCULA R 03/01/2025 [id number] CYNDI,RE ADNIEL A 2023 2 [facility] FAMOTIDINE TAB TAKE 10MG BY MOUTH EVERY DAY NEEDED ORAL ACTIVE MAURO YANG R 2019 [facility] FUROSEMIDE 20MG TAB TAKE ONE TABLET BY MOUTH EVERY DAY ORAL ACTIVE 05/02/2025 [id number] 5 CYNDI,RE DANIEL A 2023 90 [facility] FUROSEMIDE 20MG TAB TAKE ONE TABLET BY MOUTH EVERY DAY ORAL DISCONT INUED 05/12/2024 [id number] CYNDI,RE DANIEL A 2022 90 [facility] LACTOBACILL US ACIDOPHILUS TAB,CHEWABL E CHEW AND SWALLOW ONE TABLET BY MOUTH EVERY DAY ORAL ACTIVE ROGER JETER ISMARIE Colby 2018 [facility] METOPROLOL SUCCINATE 50MG TAB,SA TAKE ONE TABLET BY MOUTH EVERY DAY ORAL ACTIVE CYNDI,RE DANIEL A 2021 [facility] METOPROLOL TARTRATE 25MG TAB TAKE ONE-HALF TABLET BY MOUTH TWICE A DAY ORAL ACTIVE CYNDI,RE DANIEL A 2021 [facility] UREA 10% LOTION APPLY A SUFFICIE NT AMOUNT EXTERNAL LY TWICE A DAY NEEDED TO DRY SKIN TOPICA L 02/02/2025 [id number] CYNDI,RE DANIEL A 2023 240 [facility] VALSARTAN 320MG TAB TAKE ONE TABLET BY MOUTH EVERY DAY ORAL ACTIVE 08/23/2025 [id number] CYNDI,RE DANIEL A 2023 90 [facility] VALSARTAN 320MG TAB TAKE ONE TABLET BY MOUTH EVERY DAY ORAL DISCONT INUED 08/16/2024 [id number] MOSHE HANNA DANIEL A 2022 90 [facility] Allergies, Adverse Reactions, Alerts Combined list of allergies from Department of Defense and Veterans Affairs facilities. It does not include entries that were removed or entered in error. Substance Category Reaction Severity Reaction type Status Date Reported Comments Source CIPROFLOXACI N Propensity to adverse reactions to drug (finding) Urticaria active 2 [facility] INSECT STINGS Propensity to adverse reaction (finding) SHORTNESS OF BREATH active 5 [facility] PENICILLIN Propensity to adverse reactions to drug (finding) HIVES active 0 [facility] Immunizations Combined list of available immunizations from the Department of Defense and Veterans Affairs facilities. Immunization Series Date Given Administered By Site Reaction Lot Number CVX Code Drug Intelligence Specialist Status Comments Source INFLUENZA, UNSPECIFIED FORMULATION 2021 88 complet ed HISTORICA L INFORMATI ON - FROM OTHER PROVIDER, [place], [place] at Dr. Nicolas office [facility] INFLUENZA VACCINE, QUADRIVALENT, ADJUVANTED 2021 205 complet ed [facility] INFLUENZA, TRIVALENT, ADJUVANTED 7 2020 168 complet ed HISTORICA L INFORMATI ON - FROM OTHER REGISTRY, [facility] TD (ADULT), 5 LF TETANUS TOXOID, PRESERVATIVE FREE, ADSORBED 1 2020 113 complet ed HISTORICA L INFORMATI ON - FROM OTHER REGISTRY, [facility] COVID-19 (MODERNA), MRNA, LNP-S, PF, 100 MCG/0.5ML DOSE OR 50 MCG/0.25ML DOSE 2 2020 207 complet ed HISTORICA L INFORMATI ON - FROM OTHER REGISTRY, [facility] COVID-19 (MODERNA), MRNA, LNP-S, PF, 100 MCG/0.5ML DOSE OR 50 MCG/0.25ML DOSE 1 2020 207 complet ed HISTORICA L INFORMATI ON - FROM OTHER REGISTRY, [facility] INFLUENZA, HIGH DOSE SEASONAL 6 2019 135 complet ed HISTORICA L INFORMATI ON - FROM OTHER REGISTRY, [facility] INFLUENZA, TRIVALENT, ADJUVANTED 5 2018 168 complet ed HISTORICA L INFORMATI ON - FROM OTHER REGISTRY, [facility] INFLUENZA, TRIVALENT, ADJUVANTED 4 2017 168 complet ed HISTORICA L INFORMATI ON - FROM OTHER REGISTRY, [facility] INFLUENZA, INJECTABLE, QUADRIVALENT, PRESERVATIVE FREE 3 2016 150 complet ed HISTORICA L INFORMATI ON - FROM OTHER REGISTRY, [facility] INFLUENZA, INJECTABLE, QUADRIVALENT, PRESERVATIVE FREE 2016 150 complet ed HISTORICA L INFORMATI ON - FROM OTHER REGISTRY, [facility] PNEUMOCOCCAL CONJUGATE PCV 13 2 2016 133 complet ed HISTORICA L INFORMATI ON - FROM OTHER REGISTRY, [facility] INFLUENZA, HIGH DOSE SEASONAL 2 2015 135 complet ed HISTORICA L INFORMATI ON - FROM OTHER REGISTRY, [facility] INFLUENZA (HISTORICAL) 2015 88 complet ed [facility] INFLUENZA, HIGH DOSE SEASONAL 1 2014 135 complet ed HISTORICA L INFORMATI ON - FROM OTHER REGISTRY, [facility] PNEUMOCOCCAL POLYSACCHARID E PPV23 2014 33 complet ed yes [facility] INFLUENZA (HISTORICAL) 2014 88 complet ed Private pcp [facility] INFLUENZA (HISTORICAL) 2013 88 complet ed PMD [facility] INFLUENZA (HISTORICAL) 2012 88 complet ed RECEIVED AT [facility] INFLUENZA (HISTORICAL) 2011 88 complet ed [employer] [facility] INFLUENZA (HISTORICAL) 2010 88 complet ed [employer] [facility] INFLUENZA (HISTORICAL) 2009 88 complet ed [facility] INFLUENZA (HISTORICAL) 2007 88 complet ed NON [facility] ZOSTER LIVE 1 2007 121 complet ed HISTORICA L INFORMATI ON - FROM OTHER REGISTRY, [facility] INFLUENZA (HISTORICAL) 2006 88 complet ed [facility] PNEUMOCOCCAL, UNSPECIFIED FORMULATION 2001 109 complet ed [facility] Results Combined list of recent chemistry, hematology and other laboratory results from Department of Defense and Veterans Affairs, ranging from 15 months to all on record, depending upon the facility. Order Name Results Value Reference Range Date Interpretation Specimen Comments Source HEMOGLOBI N A1C HEMOGLOBIN A1C/HEMOGLO BIN.TOTAL IN BLOOD 6.5 3.6 - 5.7 06/27 H Specimen Type: BLOOD Comment: Values obtained from A1C measurement s can vary. For typical A1C assays, a reported value of 7.0 could actually be between 6.72 and 7.28 if measured by a reference method. A reported value of 9.0 could actually be between 8.73 and 9.27. Ref: [email or web address] Pdata.[email or web address] Ordering Provider: AUGUSTIN HANNA CCA Report Released Date/Time: Jun 23, 2024 03:57 PM Reporting Lab: [place] [address] Performing Lab: [address] PROSTATE SPECIFIC ANTIGEN PROSTATE SPECIFIC AG [MASS/VOLUM E] IN SERUM OR PLASMA 0.68 ng/mL 0 - 4.00 06/27 Specimen Type: SERUM No comment entered. Ordering Provider: AUGUSTIN HANNA CCA Report Released Date/Time: Jun 23, 2024 03:57 PM Reporting Lab: [place] [address] Performing Lab: [address] TSH THYROTROPIN [UNITS/VOLU ME] IN SERUM OR PLASMA BY DETECTION LIMIT <= 0.005 MIU/L 1.988 u[IU]/ mL 0.360 - 4.500 06/27 Specimen Type: PLASMA Comment: LDL REF RANGE: OPTIMAL: <100 mg/dL BORDERLINE HIGH: 130-159 mg/dL LDL HIGH: 160-189 mg/dL VERY HIGH: >=190 TRIG REF RANGE: NORMAL <150 mg/dL BORDERLINE HIGH: 150-199 mg/dL TRIG HIGH: 200-499 mg/dL VERY HIGH: >=500 mg/dL CREA eGFR was calculated using the CKD-EPI 2020 equation. Ordering Provider: AUGUSTIN HANNA CCA Report Released Date/Time: Jun 23, 2024 03:57 PM Reporting Lab: [place] [phone] Performing Lab: [place] [phone] [facility] LIPID PROFILE CHOLESTEROL [MASS/VOLUM E] IN SERUM OR PLASMA 114 mg/dL 0 - 200 06/27 Specimen Type: PLASMA Comment: Values obtained from A1C measurement s can vary. For typical A1C assays, a reported value of 7.0 could actually be between 6.72 and 7.28 if measured by a reference method. A reported value of 9.0 could actually be between 8.73 and 9.27. Ref: http://[email or web address] Pdata.[email or web address] Ordering Provider: AUGUSTIN HANNA CCA Report Released Date/Time: Jun 23, 2024 03:57 PM Reporting Lab: [place] [phone] Performing Lab: [place] [id number] LIPID PROFILE CHOLESTEROL IN LDL [MASS/VOLUM E] IN SERUM OR PLASMA BY DIRECT ASSAY 41 mg/dL 0 - 100 06/27 Specimen Type: PLASMA Comment: Values obtained from A1C measurement s can vary. For typical A1C assays, a reported value of 7.0 could actually be between 6.72 and 7.28 if measured by a reference method. A reported value of 9.0 could actually be between 8.73 and 9.27. Ref: http://www. [email or web address] Pdata.[email or web address] Ordering Provider: AUGUSTIN HANNA CCA Report Released Date/Time: Jun 23, 2024 03:57 PM Reporting Lab: [place] [phone] Performing Lab: [place] [phone] [facility] LIPID PROFILE CHOLESTEROL IN HDL [MASS/VOLUM E] IN SERUM OR PLASMA 57 mg/dL 40 - 60 06/27 Specimen Type: PLASMA Comment: Values obtained from A1C measurement s can vary. For typical A1C assays, a reported value of 7.0 could actually be between 6.72 and 7.28 if measured by a reference method. A reported value of 9.0 could actually be between 8.73 and 9.27. Ref: http://[email or web address]. [email or web address] Pdata.[email or web address] Ordering Provider: AUGUSTIN HANNA CCA A Report Released Date/Time: Jun 23, 2024 03:57 PM Reporting Lab: [place] [address] Performing Lab: [address] LIPID PROFILE TRIGLYCERID E [MASS/VOLUM E] IN SERUM OR PLASMA 61 mg/dL 0 - 150 06/27 Specimen Type: PLASMA Comment: Values obtained from A1C measurement s can vary. For typical A1C assays, a reported value of 7.0 could actually be between 6.72 and 7.28 if measured by a reference method. A reported value of 9.0 could actually be between 8.73 and 9.27. Ref: http://www. [email or web address]/[place] Pdata.[email or web address] Ordering Provider: AUGUSTIN HANNA CCA A Report Released Date/Time: Jun 23, 2024 03:57 PM Reporting Lab: [place] [address] Performing Lab: [address] CBC LEUKOCYTES [#/VOLUME] IN BLOOD BY AUTOMATED COUNT 7.5 10*3/u L 3.6 - 11.0 06/27 Specimen Type: BLOOD No comment entered. Ordering Provider: AUGUSTIN HANNA CCA A Report Released Date/Time: Jun 23, 2024 03:57 PM Reporting Lab: [place] [phone] Performing Lab: [address] CBC ERYTHROCYTE S [#/VOLUME] IN BLOOD BY AUTOMATED COUNT 4.55 10*6/u L 4.47 - 5.83 06/27 Specimen Type: BLOOD No comment entered. Ordering Provider: AUGUSTIN HANNA CCA A Report Released Date/Time: Jun 23, 2024 03:57 PM Reporting Lab: [place] [phone] Performing Lab: [place] [id number] CBC HEMOGLOBIN [MASS/VOLUM E] IN BLOOD 14.1 g/dL 13.6 - 17.4 06/27 Specimen Type: BLOOD No comment entered. Ordering Provider: AUGUSTIN HANNA CCA A Report Released Date/Time: Jun 23, 2024 03:57 PM Reporting Lab: [place] [phone] Performing Lab: [place] [phone] CBC HEMATOCRIT [VOLUME FRACTION] OF BLOOD BY AUTOMATED COUNT 41.8 40.0 - 51.0 06/27 Specimen Type: BLOOD No comment entered. Ordering Provider: AUGUSTIN HANNA CCA A Report Released Date/Time: Jun 23, 2024 03:57 PM Reporting Lab: [place] [phone] Performing Lab: [address] CBC MCV [ENTITIC VOLUME] BY AUTOMATED COUNT 91.9 fL 80.0 - 96.0 06/27 Specimen Type: BLOOD No comment entered. Ordering Provider: AUGUSTIN HANNA CCA A Report Released Date/Time: Jun 23, 2024 03:57 PM Reporting Lab: [place] [phone] Performing Lab: [place] [phone] CBC MCH [ENTITIC MASS] BY AUTOMATED COUNT 31.0 pg 27.0 - 31.0 06/27 Specimen Type: BLOOD No comment entered. Ordering Provider: AUGUSTIN HANNA CCA A Report Released Date/Time: Jun 23, 2024 03:57 PM Reporting Lab: [place] [phone] Performing Lab: [place] [phone] CBC MCHC [MASS/VOLUM E] BY AUTOMATED COUNT 33.7 g/dL 31.5 - 36.5 06/27 Specimen Type: BLOOD No comment entered. Ordering Provider: AUGUSTIN HANNA CCA A Report Released Date/Time: Jun 23, 2024 03:57 PM Reporting Lab: [place] [phone] Performing Lab: [place] [id number] [place] [address] CBC PLATELETS [#/VOLUME] IN BLOOD BY AUTOMATED COUNT 215 10*3/u L 150 - 400 06/27 Specimen Type: BLOOD No comment entered. Ordering Provider: AUGUSTIN HANNA CCA A Report Released Date/Time: Jun 23, 2024 03:57 PM Reporting Lab: [place] [phone] Performing Lab: [place] [phone] CBC LYMPHOCYTES /100 LEUKOCYTES IN BLOOD BY AUTOMATED COUNT 26.8 21.0 - 51.0 06/27 Specimen Type: BLOOD No comment entered. Ordering Provider: AUGUSTIN HANNA CCA A Report Released Date/Time: Jun 23, 2024 03:57 PM Reporting Lab: [place] [phone] Performing Lab: [address] CBC MONOCYTES/1 00 LEUKOCYTES IN BLOOD BY AUTOMATED COUNT 8.8 4.0 - 8.0 06/27 H Specimen Type: BLOOD No comment entered. Ordering Provider: AUGUSTIN HANNA CCA A Report Released Date/Time: Jun 23, 2024 03:57 PM Reporting Lab: [place] [phone] Performing Lab: [place] [phone] CBC NUCLEATED ERYTHROCYTE S/100 LEUKOCYTES [RATIO] IN BLOOD BY MANUAL COUNT 0.0 /100{W BCs} 06/27 Specimen Type: BLOOD No comment entered. Ordering Provider: AUGUSTIN HANNA CCA A Report Released Date/Time: Jun 23, 2024 03:57 PM Reporting Lab: [place] [phone] Performing Lab: [place] [phone] CBC ERYTHROCYTE DISTRIBUTIO N WIDTH [RATIO] BY AUTOMATED COUNT 14.2 11.2 - 15.8 06/27 Specimen Type: BLOOD No comment entered. Ordering Provider: AUGUSTIN HANNA CCA A Report Released Date/Time: Jun 23, 2024 03:57 PM Reporting Lab: [place] [phone] Performing Lab: [place] [address] [facility] CBC NEUTROPHILS /100 LEUKOCYTES IN BLOOD BY AUTOMATED COUNT 61.3 54.0 - 78.0 06/27 Specimen Type: BLOOD No comment entered. Ordering Provider: AUGUSTIN HANNA CCA A Report Released Date/Time: Jun 23, 2024 03:57 PM Reporting Lab: [place] [phone] Performing Lab: [place] [phone] [place] [address] CBC EOSINOPHILS /100 LEUKOCYTES IN BLOOD BY AUTOMATED COUNT 2.1 0.0 - 3.0 06/27 Specimen Type: BLOOD No comment entered. Ordering Provider: AUGUSTIN HANNA CCA A Report Released Date/Time: Jun 23, 2024 03:57 PM Reporting Lab: [place] [phone] Performing Lab: [place] [phone] [place] [address] CBC BASOPHILS/1 00 LEUKOCYTES IN BLOOD BY AUTOMATED COUNT 1.0 0.0 - 3.0 06/27 Specimen Type: BLOOD No comment entered. Ordering Provider: AUGUSTIN HANNA CCA A Report Released Date/Time: Jun 23, 2024 03:57 PM Reporting Lab: [place] [phone] Performing Lab: [place] [phone] CBC LYMPHOCYTES [#/VOLUME] IN BLOOD BY AUTOMATED COUNT 2.0 10*3/u L 0.8 - 5.0 06/27 Specimen Type: BLOOD No comment entered. Ordering Provider: AUGUSTIN HANNA CCA A Report Released Date/Time: Jun 23, 2024 03:57 PM Reporting Lab: [address] [phone] Performing Lab: [place] [phone] CBC NEUTROPHILS [#/VOLUME] IN BLOOD 4.6 10*3/u L 1.9 - 8.6 06/27 Specimen Type: BLOOD No comment entered. Ordering Provider: AUGUSTIN HANNA CCA A Report Released Date/Time: Jun 23, 2024 03:57 PM Reporting Lab: [place] [phone] Performing Lab: [place] [phone] CBC BASOPHILS [#/VOLUME] IN BLOOD BY AUTOMATED COUNT 0.1 10*3/u L 0.0 - 0.3 06/27 Specimen Type: BLOOD No comment entered. Ordering Provider: AUGUSTIN HANNA CCA A Report Released Date/Time: Jun 23, 2024 03:57 PM Reporting Lab: [place] [phone] Performing Lab: [place] [phone] CBC MONOCYTES [#/VOLUME] IN BLOOD BY AUTOMATED COUNT 0.7 10*3/u L 0.1 - 0.9 06/27 Specimen Type: BLOOD No comment entered. Ordering Provider: AUGUSTIN HANNA CCA A Report Released Date/Time: Jun 23, 2024 03:57 PM Reporting Lab: [place] [address] Performing Lab: [address] CBC EOSINOPHILS [#/VOLUME] IN BLOOD BY AUTOMATED COUNT 0.2 10*3/u L 0.0 - 0.3 06/27 Specimen Type: BLOOD No comment entered. Ordering Provider: AUGUSTIN HANNA CCA A Report Released Date/Time: Jun 23, 2024 03:57 PM Reporting Lab: [place] [address] Performing Lab: [address] CBC PLATELET MEAN VOLUME [ENTITIC VOLUME] IN BLOOD BY AUTOMATED COUNT 9.8 fL 7.4 - 11.4 06/27 Specimen Type: BLOOD No comment entered. Ordering Provider: AUGUSTIN HANNA CCA A Report Released Date/Time: Jun 23, 2024 03:57 PM Reporting Lab: [place] [phone] Performing Lab: [place] [phone] COMPREHEN SIVE METABOLIC PANEL ALBUMIN [MASS/VOLUM E] IN SERUM OR PLASMA 4.1 g/dL 3.2 - 4.6 06/27 Specimen Type: PLASMA Comment: Values obtained from A1C measurement s can vary. For typical A1C assays, a reported value of 7.0 could actually be between 6.72 and 7.28 if measured by a reference method. A reported value of 9.0 could actually be between 8.73 and 9.27. Ref: [email or web address]://[email or web address]. [email or web address] Pdata.[email or web address] Ordering Provider: AUGUSTIN HANNA CCA A Report Released Date/Time: Jun 23, 2024 03:57 PM Reporting Lab: [place] [address] Performing Lab: [address] COMPREHEN SIVE METABOLIC PANEL ALKALINE PHOSPHATASE [ENZYMATIC ACTIVITY/VO LUME] IN SERUM OR PLASMA 82 U/L 46 - 116 06/27 Specimen Type: PLASMA Comment: Values obtained from A1C measurement s can vary. For typical A1C assays, a reported value of 7.0 could actually be between 6.72 and 7.28 if measured by a reference method. A reported value of 9.0 could actually be between 8.73 and 9.27. Ref: http://[email or web address]. [email or web address] Pdata.[email or web address] Ordering Provider: AUGUSTIN HANNA CCA A Report Released Date/Time: Jun 23, 2024 03:57 PM Reporting Lab: [place] [address] Performing Lab: [address] METABOLIC PANEL ALANINE AMINOTRANSF ERASE [ENZYMATIC ACTIVITY/VO LUME] IN SERUM OR PLASMA 24 U/L 0 - 55 06/27 Specimen Type: PLASMA Comment: Values obtained from A1C measurement s can vary. For typical A1C assays, a reported value of 7.0 could actually be between 6.72 and 7.28 if measured by a reference method. A reported value of 9.0 could actually be between 8.73 and 9.27. Ref: http://[email or web address]. [email or web address] Pdata.[email or web address] Ordering Provider: AUGUSTIN HANNA CCA A Report Released Date/Time: Jun 23, 2024 03:57 PM Reporting Lab: [place] [phone] Performing Lab: [place] [phone] [facility] COMPREHEN SIVE METABOLIC PANEL ASPARTATE AMINOTRANSF ERASE [ENZYMATIC ACTIVITY/VO LUME] IN SERUM OR PLASMA 24 U/L 5 - 34 06/27 Specimen Type: PLASMA Comment: Values obtained from A1C measurement s can vary. For typical A1C assays, a reported value of 7.0 could actually be between 6.72 and 7.28 if measured by a reference method. A reported value of 9.0 could actually be between 8.73 and 9.27. Ref: http://[email or web address]. [email or web address] Pdata.[email or web address] Ordering Provider: AUGUSTIN HANNA CCA Report Released Date/Time: Jun 23, 2024 03:57 PM Reporting Lab: [place] [phone] Performing Lab: [place] [phone] [place] [address] COMPREHEN SIVE METABOLIC PANEL UREA NITROGEN [MASS/VOLUM E] IN SERUM OR PLASMA 20 mg/dL 9 - 06/27 Specimen Type: PLASMA Comment: Values obtained from A1C measurement s can vary. For typical A1C assays, a reported value of 7.0 could actually be between 6.72 and 7.28 if measured by a reference method. A reported value of 9.0 could actually be between 8.73 and 9.27. Ref: http://[email or web address]. [email or web address] Pdata.[email or web address] Ordering Provider: AUGUSTIN HANNA CCA A Report Released Date/Time: Jun 23, 2024 03:57 PM Reporting Lab: [place] [phone] Performing Lab: [place] [phone] [facility] COMPREHEN SIVE METABOLIC PANEL CALCIUM [MASS/VOLUM E] IN SERUM OR PLASMA 9.2 mg/dL 8.5 - 10.1 06/27 Specimen Type: PLASMA Comment: Values obtained from A1C measurement s can vary. For typical A1C assays, a reported value of 7.0 could actually be between 6.72 and 7.28 if measured by a reference method. A reported value of 9.0 could actually be between 8.73 and 9.27. Ref: http://[email or web address]. [email or web address] Pdata.[email or web address] Ordering Provider: AUGUSTIN HANNA CCA A Report Released Date/Time: Jun 23, 2024 03:57 PM Reporting Lab: [place] [phone] Performing Lab: [place] [phone] COMPREHEN SIVE METABOLIC PANEL CREATININE [MASS/VOLUM E] IN SERUM OR PLASMA 1.3 mg/dL 0.7 - 1.3 06/27 Specimen Type: PLASMA Comment: Values obtained from A1C measurement s can vary. For typical A1C assays, a reported value of 7.0 could actually be between 6.72 and 7.28 if measured by a reference method. A reported value of 9.0 could actually be between 8.73 and 9.27. Ref: [email or web address]://[email or web address]. [email or web address] Pdata.[email or web address] Ordering Provider: AUGUSTIN HANNA CCA A Report Released Date/Time: Jun 23, 2024 03:57 PM Reporting Lab: [place] [address] Performing Lab: [place] [phone] COMPREHEN SIVE METABOLIC PANEL CARBON DIOXIDE, TOTAL [MOLES/VOLU ME] IN SERUM OR PLASMA 21 mmol/L 22 - 29 06/27 L Specimen Type: PLASMA Comment: Values obtained from A1C measurement s can vary. For typical A1C assays, a reported value of 7.0 could actually be between 6.72 and 7.28 if measured by a reference method. A reported value of 9.0 could actually be between 8.73 and 9.27. Ref: http://www. ngsp.org/CA Pdata.asp Ordering Provider: AUGUSTIN HANNA CCA A Report Released Date/Time: Jun 23, 2024 03:57 PM Reporting Lab: [place] [id number] Performing Lab: [place] [id number] [place] [address] COMPREHEN SIVE METABOLIC PANEL GLUCOSE [MASS/VOLUM E] IN SERUM OR PLASMA 103 mg/dL 74 - 100 06/27 H Specimen Type: PLASMA Comment: Values obtained from A1C measurement s can vary. For typical A1C assays, a reported value of 7.0 could actually be between 6.72 and 7.28 if measured by a reference method. A reported value of 9.0 could actually be between 8.73 and 9.27. Ref: http://www. ngsp.org/CA Pdata.asp Ordering Provider: AUGUSTIN HANNA CCA A Report Released Date/Time: Jun 23, 2024 03:57 PM Reporting Lab: [place] [address] Performing Lab: [address] COMPREHEN SIVE METABOLIC PANEL PROTEIN [MASS/VOLUM E] IN SERUM OR PLASMA 6.6 g/dL 6.4 - 8.3 06/27 Specimen Type: PLASMA Comment: Values obtained from A1C measurement s can vary. For typical A1C assays, a reported value of 7.0 could actually be between 6.72 and 7.28 if measured by a reference method. A reported value of 9.0 could actually be between 8.73 and 9.27. Ref: http://www. ngsp.org/CA Pdata.asp Ordering Provider: AUGUSTIN HANNA CCA A Report Released Date/Time: Jun 23, 2024 03:57 PM Reporting Lab: [place] [address] Performing Lab: [address] COMPREHEN SIVE METABOLIC PANEL SODIUM [MOLES/VOLU ME] IN SERUM OR PLASMA 135 mmol/L 136 - 145 06/27 L Specimen Type: PLASMA Comment: Values obtained from A1C measurement s can vary. For typical A1C assays, a reported value of 7.0 could actually be between 6.72 and 7.28 if measured by a reference method. A reported value of 9.0 could actually be between 8.73 and 9.27. Ref: http://www. ngsp.org/CA Pdata.asp Ordering Provider: AUGUSTIN HANNA CCA A Report Released Date/Time: Jun 23, 2024 03:57 PM Reporting Lab: [place] [address] Performing Lab: [address] COMPREHEN SIVE METABOLIC PANEL CHLORIDE [MOLES/VOLU ME] IN SERUM OR PLASMA 105 mmol/L 98 - 107 06/27 Specimen Type: PLASMA Comment: Values obtained from A1C measurement s can vary. For typical A1C assays, a reported value of 7.0 could actually be between 6.72 and 7.28 if measured by a reference method. A reported value of 9.0 could actually be between 8.73 and 9.27. Ref: http://www. ngsp.org/CA Pdata.asp Ordering Provider: AUGUSTIN HANNA CCA A Report Released Date/Time: Jun 23, 2024 03:57 PM Reporting Lab: [address] Performing Lab: [address] METABOLIC PANEL BILIRUBIN.T OTAL [MASS/VOLUM E] IN SERUM OR PLASMA 0.7 mg/dL 0.2 - 1.2 06/27 Specimen Type: PLASMA Comment: Values obtained from A1C measurement s can vary. For typical A1C assays, a reported value of 7.0 could actually be between 6.72 and 7.28 if measured by a reference method. A reported value of 9.0 could actually be between 8.73 and 9.27. Ref: http://www. ngsp.org/CA Pdata.asp Ordering Provider: AUGUSTIN HANNA CCA A Report Released Date/Time: Jun 23, 2024 03:57 PM Reporting Lab: [place] [id number] Performing Lab: [place] [phone] [place] [address] SIVE METABOLIC PANEL POTASSIUM [MOLES/VOLU ME] IN SERUM OR PLASMA 4.8 mmol/L 3.5 - 5.1 06/27 Specimen Type: PLASMA Comment: Values obtained from A1C measurement s can vary. For typical A1C assays, a reported value of 7.0 could actually be between 6.72 and 7.28 if measured by a reference method. A reported value of 9.0 could actually be between 8.73 and 9.27. Ref: http://www. ngsp.org/CA Pdata.asp Ordering Provider: AUGUSTIN HANNA CCA A Report Released Date/Time: Jun 23, 2024 03:57 PM Reporting Lab: [place] [id number] Performing Lab: [place] [phone] [facility] ANION GAP IN SERUM OR PLASMA 13.8 10 - 20 06/27 Specimen Type: PLASMA Comment: Values obtained from A1C measurement s can vary. For typical A1C assays, a reported value of 7.0 could actually be between 6.72 and 7.28 if measured by a reference method. A reported value of 9.0 could actually be between 8.73 and 9.27. Ref: http://www. ngsp.org/CA Pdata.asp Ordering Provider: AUGUSTIN HANNA CCA A Report Released Date/Time: Jun 23, 2024 03:57 PM Reporting Lab: [place] [phone] Performing Lab: [place] [phone] [facility] GLOMERULAR FILTRATION RATE/1.73 SQ M.PREDICTED [VOLUME RATE/AREA] IN SERUM, PLASMA OR BLOOD BY CREATININE- BASED FORMULA (CKD-EPI 2020) 53.0 mL/min 06/27 Specimen Type: PLASMA Comment: Values obtained from A1C measurement s can vary. For typical A1C assays, a reported value of 7.0 could actually be between 6.72 and 7.28 if measured by a reference method. A reported value of 9.0 could actually be between 8.73 and 9.27. Ref: http://www. ngsp.org/CA Pdata.asp Ordering Provider: AUGUSTIN HANNA CCA A Report Released Date/Time: Jun 23, 2024 03:57 PM Reporting Lab: [address] [phone] Performing Lab: [place] [phone] [facility] Vital Signs Combined list of inpatient and outpatient Vital Signs from Department of Defense and Veterans Affairs, ranging from 12 months to all on record, depending upon the facility. Vital Sign Value Date Comments Source SYSTOLIC BLOOD PRESSURE 192 06/30/2024 10:45:47 [facility] DIASTOLIC BLOOD PRESSURE 87 06/30/2024 10:45:47 [facility] PULSE OXIMETRY 96 06/30/2024 10:45:47 [facility] WEIGHT 225.2 06/30/2024 10:45:47 [facility] BMI 31 kg/m2 06/30/2024 10:45:47 [facility] PAIN 0 06/30/2024 10:45:47 [facility] TEMPERATURE 97.8 06/30/2024 10:45:47 [facility] PULSE 69 06/30/2024 10:45:47 [facility] RESPIRATION 16 06/30/2024 10:45:47 [facility] Encounters Combined list of: 1) Encounters from Department of [facility] Affairs facilities going backup to the last 18 months, not all [place] inpatient encounters are included; 2) Encounters from the Department of [facility] facilities going backup to 280 months. 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 weston DA NIEL 03/01 [place] Y [facility] Outpatient Encounter [id number] 05/01 [facility] Outpatient Encounter [id number] 06/30 [facility] OFFICE O/P EST MOD 30 MIN [id number] Diagnos is: ICD-10- CM I10 Essenti al (primar y) hyperte nsion BELEN HANNA ECCA A 06/30 [place] [facility] HEARING AID REPAIR/MOD IFYING [id number] Diagnos is: ICD-10- CM Z46.1 Encount er for fitting and adjustm ent of hearing aid ZAIRA BALDERRAMA 08/02 [facility] Outpatient Encounter [id number] 08/03 [facility] HEARING AID EXAM BOTH EARS [id number] Diagnos is: ICD-10- CM H90.3 Sensori neural hearing loss, bilater al MARIA E TIAN 09/05 [place] [facility] Outpatient Encounter [id number] 10/04 [facility] PH1 ASSMT&MGMT NQHP 21-30 [id number] Diagnos is: ICD-10- CM Z71.9 Customer Advocacy Manager ing, unspeci fied RHETTALVERTO COE K 11/30 [place] [facility] Outpatient Encounter [id number] JOSE R DELANEYDAWOOD COE K 11/30 [facility] PH1 ASSMT&MGMT NQHP 21-30 [id number] Diagnos is: ICD-10- CM Z74.1 Need for assista nce with persona MICHELLE Romero 12/06 [facility] Outpatient Encounter [id number] 12/18 [facility] HEARING SERVICE [id number] Diagnos is: ICD-10- CM Z46.1 Encount er for fitting and adjustm ent of hearing aid MARIA E TIAN 12/19 [place] [facility] OFFICE O/P EST MOD 30 MIN [id number] Diagnos is: ICD-10- CM 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, right eye, stable MAURO HEWITT RAISA 12/21 [facility] [facility] Outpatient Encounter [id number] 01/24 [place] [facility] OFFICE O/P EST MOD 30 MIN [id number] Diagnos is: ICD-10- CM H40.013 Open angle with borderl ine finding s, low risk, bilater al MAURO HEWITT 02/26 [place] HEARING AID FITTING/CH ECKING [id number] Diagnos is: ICD-10- CM Z46.1 Encount er for fitting and adjustm ent of hearing aid JOSSELINE CAMPOS 03/13 [facility] Social History Combined list of available smoking, tobacco, and other social history from Department of Defense and Veterans Affairs facilities. Social History Type Response Date Comment Sourc e Tobacco smoking status NDIS VA-TOBACCO FORMER USER 06/30/2024 [facility] History of tobacco use VA-TOBACCO QUIT 15 YRS OR MORE 06/30/2024 [facility] History of tobacco use VA-TOBACCO FORMER USER 06/30/2023 [facility] History of tobacco use VA-TOBACCO QUIT 15 YRS OR MORE 12/15/2021 [facility] History of tobacco use VA-TOBACCO FORMER USER 12/16/2020 [facility] History of tobacco use VA-TOBACCO QUIT 15 YRS OR MORE 05/29/2019 [facility] History of tobacco use QUIT TOBACCO >7 YEARS AGO 01/07/2009 [facility] History of tobacco use QUIT TOBACCO >7 YEARS AGO 01/30/2008 [facility] History of tobacco use QUIT TOBACCO >7 YEARS AGO 01/20/2007 [facility] History of tobacco use TOBACCO FORMER USER MORE 12 MONTHS 07/12/2006 QUIT SMOKING 25 YEARS AGO [facility] History of tobacco use TOBACCO FORMER USER MORE 12 MONTHS 10/08/2005 quit ' [facility] History of tobacco use TOBACCO FORMER USER MORE 12 MONTHS 12/19/2004 Quit about 20 years ago. [facility] History of tobacco use TOBACCO FORMER USER MORE 12 MONTHS 03/04/2004 QUIT IN 1981 [facility] History of tobacco use TOBACCO FORMER USER MORE 12 MONTHS 09/01/2002 NOT IN 20 YEARS [facility] History of tobacco use TOBACCO FORMER USER MORE 12 MONTHS 01/06/2001 [facility] Plan of Care List of future care activities from Department of Veterans Affairs facilities. Additional future care activities may be listed in the Assessment and Plan section. Date/Time Care Activity Care Activity Detail Facili ty 06/27/2025 AMBULATORY - NONE AMBULATORY - NONE [facility]
--- OUTSIDE RECORDS SUMMARY | 2025-03-23 10:06 | XMS_ITS | Encounter Summary ---
Author Organization [facility] Address [address] [place] [address] Phone Care Team Providers Care Adjunct Psychology Professor Name Role Phone Cholo Nicolas MD Primary Care Provider [phone] Encounter Details Date Type Department Care Team (Late st Contact Info) Description 06/22/2023 Scanned Document [facility] [address] [place] [address] Conversion, Onbase Social History Tobacco Use Types Packs/Day Years Used Date Smoking Tobacco: Never Assessed Sex and Gender Information Value Date Recorded Sex Assigned at Not on file Legal Sex Male 10:16 AM EST Gender Identity Not on file Sexual Orientation Not on file documented as of this encounter Plan of Treatment Upcoming Encounters Date Type Department Care Team (Late st Contact Info) Description 07/26/2025 10:10 AM EDT Office Visit [facility] [address] [facility] [address] [place] [phone] Macario Swanson, DO [address] [place] [address] documented as of this encounter Procedures Procedure Name Priority Date/Time Associated Diagnosis Comments OUTSIDE GENERIC TESTING 06/22/2023 documented in this encounter Results * OUTSIDE GENERIC TESTING (06/22/2023) Anatomical Region Laterality Modality Other Narrative 06/22/2023 Ordered by an unspecified provider. us Onbase Conversion OUTSIDE SCAN Final Result documented in this encounter Visit Diagnoses Not on filedocumented in this encounter Care Teams Adjunct Psychology Professor Relationship Specialty Start Date End Date Cholo Nicolas MD [address] [place] [address] PCP - General 10/18/99 documented as of this encounter
--- OUTSIDE RECORDS SUMMARY | 2025-03-23 10:06 | XMS_ITS | Encounter Summary ---
Author Organization [facility] Address [address] [place] [address] Phone Care Team Providers Care Metal Drilling Machine Operator Name Role Phone Cholo Nicolas MD Primary Care Provider [phone] Encounter Details Date Type Department Care Team (Late st Contact Info) Description 11/12/2024 Scanned Document [facility] [address] [place] [phone] Scanning, Generic Provider Social History Tobacco Use Types Packs/Day Years Used Date Smoking Tobacco: Former Pipe Q uit: 1985 Smokeless Tobacco: Never Alcohol Use Standard Drinks/Week Comments Never 0 (1 standard drink = 0.6 oz pur e alcohol) past alooholic Sex and Gender Information Value Date Recorded Sex Assigned at Not on file Legal Sex Male 10:16 AM EST Gender Identity Not on file Sexual Orientation Not on file documented as of this encounter Plan of Treatment Upcoming Encounters Date Type Department Care Team (Late st Contact Info) Description 07/26/2025 10:10 AM EDT Office Visit [facility] [address] [facility] [address] [place] [phone] Macario Swanson S, [address] [facility] [address] [place] [address] documented as of this encounter Procedures Procedure Name Priority Date/Time Associated Diagnosis Comments OUTSIDE IMAGING SCAN 11/12/2024 documented in this encounter Results * OUTSIDE IMAGING SCAN (11/12/2024) Anatomical Region Laterality Modality Other Narrative 11/12/2024 Ordered by an unspecified provider. us Generic Provider Scanning OUTSIDE SCAN Final Result documented in this encounter Visit Diagnoses Not on filedocumented in this encounter Additional Health Concerns Assessment Noted Time A fall risk assessment has been complete d for the patient 08/11/2023 12:17 PM EDT documented as of this encounter Care Teams Metal Drilling Machine Operator Relationship Specialty Start Date End Date Cholo Nicolas MD [address] [place] [address] PCP - General 10/18/99 documented as of this encounter
--- OUTSIDE RECORDS SUMMARY | 2025-03-23 10:06 | XMS_ITS | Encounter Summary ---
Author Organization [facility] Address [address] [place] [address] Phone Care Team Providers Care Client Specialist Name Role Phone Cholo Nicolas MD Primary Care Provider [phone] Encounter Details Date Type Department Care Team (Late st Contact Info) Description 11/15/2024 Scanned Document [facility] [address] [place] [phone] Scanning, Generic Provider Social History Tobacco Use [...] Encounters Date Type Department Care Team (Late Contact Info) Description 07/26/2025 10:10 AM EDT Office Visit [facility] [address] [facility] [address] [place] [phone] Macario Swanson DO [address] [facility] [address] [place] [address] documented as of this encounter Visit Diagnoses Not on filedocumented in this encounter Additional Health Concerns Assessment Noted Time A fall risk assessment has been complete d for the patient 08/11/2023 12:17 PM EDT documented as of this encounter Care Teams Client Specialist Relationship Specialty Start Date End Date Cholo Nicolas MD [address] [place] [address] PCP - General 10/18/99 documented as of this encounter
--- OUTSIDE RECORDS SUMMARY | 2025-03-23 10:06 | XMS_ITS | Encounter Summary ---
Author Organization [facility] Address [address] [place] [address] Phone Care Team Providers Care Line Erector Apprentice Name Role Phone Cholo Nicolas MD Primary Care Provider [phone] Encounter Details Date Type Department Care Team (Late st Contact Info) Description 11/13/2024 Scanned Document [facility] [address] [place] [phone] Scanning, Generic Provider Social History Tobacco Use [...] Description 07/26/2025 10:10 AM EDT Office Visit [facility] [address] [facility] [address] [place] [phone] Macario Swanson S, [address] [facility] [address] [place], [place] [phone] documented as of this encounter Procedures Procedure Name Priority Date/Time Associated Diagnosis Comments ECHOCARDIOGRAM 11/13/2024 documented in this encounter Results * Echocardiogram (11/13/2024) Narrative 11/13/2024 Ordered by an unspecified provider. us Generic Provider Scanning CV ECHO PROCEDURES Fin al Result documented in this encounter Visit Diagnoses Not on filedocumented in this encounter Additional Health Concerns Assessment Noted Time A fall risk assessment has been complete d for the patient 08/11/2023 12:17 PM EDT documented as of this encounter Care Teams Line Erector Apprentice Relationship Specialty Start Date End Date Cholo Nicolas MD [address] [place] [id number] PCP - General 10/18/99 documented as of this encounter
--- OUTSIDE RECORDS SUMMARY | 2025-03-23 10:06 | XMS_ITS | Clinical Summary ---
Author Organization [facility] Address [address] [place] [address] Phone Care Team Providers Care Policy Services Representative Name Role Phone Cholo Nicolas MD Primary Care Provider [phone] Allergies Active Allergy Reactions Criticality Noted Date Comments Ciprofloxacin Hives 08/09/2023 Penicillins Rash Low 08/09/2023 Medications acetaminophen (Tylenol Extra Strength) 500 mg tablet TAKE 1 TABLET EVERY 4 TO 6 HOURS NEEDED. Active aspirin 81 mg EC tablet Take 1 tablet (81 mg) by mouth once daily. Active celecoxib (CeleBREX) 200 mg capsule Take 1 capsule (200 mg) by mouth once daily. 01/13/20 22 Active cetirizine (ZyrTEC) 10 mg tablet Take 1 tablet (10 mg) by mouth once daily. Active cyanocobalamin (Vitamin B-12) 1,000 mcg/mL injection INJECT 1 (ONE) ml INTRAMUSCULARLY once a month 08/05/20 21 Active diclofenac sodium 1 % kit APPLY TO THE AFFECTED AREA(S) DAILY as directed 11/13/19 21 Active EPINEPHrine 0.3 mg/0.3 mL injection syringe USE DIRECTED. Act noelle lactobacillus acidophilus (Florajen Acidophilus) capsule Take 1 capsule by mouth once daily. Active triamcinolone (Kenalog) 0.1 % cream USE DIRECTED. Act noelle nitroglycerin (Nitrostat) 0.[address] 1 tablet (0.4 mg) under the tongue every 5 minutes if needed for chest pain. Active valsartan (Diovan) 320 mg tabletIndication s:Benign essential hypertension Take 1 tablet (320 mg) by mouth once daily. 90 tablet 08/20/20 23 Active furosemide (Lasix) 20 mg tabletIndication s:Essential (primary) hypertension TAKE 1 TABLET BY MOUTH DAILY 90 tablet 3 11/18/19 24 Active atorvastatin (Lipitor) 40 mg tabletIndication s:Occlusion and stenosis of unspecified carotid artery Take 1 tablet (40 mg) by mouth once daily at bedtime. 90 tablet 3 05/02/20 24 025 Active metoprolol succinate XL (Toprol-XL) 25 mg 24 hr tabletIndication s:Benign essential hypertension Take 0.5 tablets (12.5 mg) by mouth once daily. 45 tablet 3 10/24/19 25 026 Active sucralfate (Carafate) 1 gram tablet Take 1 tablet (1 g) by mouth 3 times a day. 11/26/19 25 Active pantoprazole (ProtoNix) 40 mg EC tablet Take 1 tablet (40 mg) by mouth once daily in the morning. Take before meals. 11/19/19 25 Active Active Problems Problem Noted Date Diagnosed Date BMI 29.0-29.9,adult 12/18/2024 Assessment & Plan (12/18/2024 11:32 AM EST): Reviewed the merits of healthy lifestyle choices on overall cardiovascular health. History of percutaneous coronary intervention BMI 30.0-30.9,adult 08/10/2024 Atrial fibrillation (Multi) 08/09/2023 Assessment & Plan (12/18/2024 11:31 AM EST): Had transient atrial fibrillation at time of inferior STEMI requiring cardioversion. 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 30-40% Nov 2024 MPI No ischemia No infarct TID 0.74 EF 69% Current daily activity greater than 4 METS without concerning symptoms Dizziness 08/09/2023 History of PA (myocardial infarction) 08/09/2023 Implantable loop recorder present 08/09/2023 Assessment & Plan (12/18/2024 11:32 AM EST): Implant April 2022 Last interrogation in system Oct 2023 Reports has remote monitor Will contact device clinic Mixed hyperlipidemia 08/09/2023 Assessment & Plan (12/18/2024 11:32 AM EST): Moderate intensity statin Reports annual labs [facility] and PCP Pre-syncope 08/09/2023 PVD (peripheral vascular disease) 08/09/2023 Shortness of breath 08/09/2023 Anticoagulated 08/09/2023 Former smoker 08/09/2023 Resolved Problems Problem Noted Date Diagnosed Date Resolved Date Class 1 obesity with body ma ss index (BMI) of 30.0 to 30.9 in adult 08/09/2023 08/11/2023 Encounters Date Type Department Care Team Description 12/26/[address] [address] Lauryn Malloy LPN Medical Advice/Question from Last 3 Months Immunizations Immunization Administration Dates Next Due Flu vaccine (IIV4), preserva tive free *Check age/dose* 07/21/2017,11/17/2016 Flu vaccine, trivalent, pres ervative free, HIGH-DOSE, age 65y+ (Fluzone) 08/06/2020,07/20/2016,07/21/2015 Influenza, Unspecified 07/22/2022 Influenza, trivalent, adjuvanted 07/10/2021,06/18,07/18/2018 Pneumococcal conjugate vacci ne, 13-valent (PREVNAR 13) 11/17/2016 Pneumococcal polysaccharide vaccine, 23-valent, age 2 years and older (PNEUMOVAX 23) 07/18/2015 Td vaccine, age 7 years and older (TENIVAC) 06/19 Zoster, live 10/24/2007 Family History Medical History Relation Name Comments Cancer Father Hypertension Mother Relation Name Status Comments Father Mother Social History Tobacco Use Types Packs/Day Years Used Date Smoking Tobacco: Former Pipe Q uit: 1985 Smokeless Tobacco: Never Tobacco Cessation:Counseling Given: Not Answered Alcohol Use Standard Drinks/Week Comments Never 0 (1 standard drink = 0.6 oz pur e alcohol) past alooholic Sex and Gender Information Value Date Recorded Sex Assigned at Not on file Legal Sex Male 10:16 AM EST Gender Identity Not on file Sexual Orientation Not on file Last Filed Vital Signs Vital Sign Reading Time Taken Comments Blood Pressure 132/60 12/18/2024 10:33 AM EST Pulse 62 12/18/2024 10:33 AM EST Temperature - - Respiratory Rate 16 10/28/2021 2:58 PM EST Oxygen Saturation 97% 02/20/2022 2:35 PM EDT Inhaled Oxygen Concentration - - Weight 98.6 kg (217 lb 6.4 oz) 12/18/2024 10:33 AM EST Height 181.6 cm (5' 11.5 ) 12/18/2024 10:[address] Body Mass Index 29.9 12/18/2024 10:33 AM EST Plan of Treatment Upcoming Encounters Date Type Department Care Team (Late st Contact Info) Description 07/26/2025 10:10 AM EDT Office Visit [facility] [address] [facility] [address] [place] [phone] Macario Swanson DO [address] [facility] [address] [place] [address] [place] [address] Health Maintenance Due Date Last Done Comments Lipid Panel 1935 Diabetes Screening 1953 Zoster Vaccines (2 of 3) 12/19/2007 10/24/2007 RSV High Risk: (Elderly (60+) or Population) (1 - 1-dose 75+ series) 2012 Medicare Annual Wellness Visit (AWV) 09/05/2020 09/04/2019 DTaP/Tdap/Td Vaccines (1 - Tdap) 07/08/2021 07/07/2021 COVID-19 Vaccine (3 - season) 2024 12/17/2020, 11/19/2020 Influenza Vaccine (Season Ended) 2025 07/22/2022, 07/10/2021, 08/06/2020, Additional history exists Pneumococcal Vaccine Completed 11/17/2016, 07/18/2015, 09/01/2002 Welcome to Medicare Visit Discontinued 09/04/2019 HIB Vaccines Aged Out No longer eligi ble based on patient's age to complete this topic HPV Vaccines Aged Out No longer eligi ble based on patient's age to complete this topic Hepatitis A Vaccines Aged Out No long er eligible based on patient's age to complete this topic Hepatitis B Vaccines Aged Out No long er eligible based on patient's age to complete this topic IPV Vaccines Aged Out No longer eligi ble based on patient's age to complete this topic Meningococcal Vaccine Aged Out No thaddeus tova eligible based on patient's age to complete this topic Rotavirus Vaccines Aged Out No longer eligible based on patient's age to complete this topic Insurance MEDICARE PART A AND B [facility] MEDICARE PART A AND B [facility] Care Teams Policy Services Representative Relationship Specialty Start Date End Date Cholo Nicolas MD [address] [facility] [place] [address] PCP - General 10/18/99
--- OUTSIDE RECORDS SUMMARY | 2025-03-23 10:06 | XMS_ITS | Encounter Summary ---
Author Organization [facility] Address [address] [place] [address] Phone Care Team Providers Care Cementer Machine Joiner Name Role Phone Cholo Nicolas MD Primary Care Provider [phone] Encounter Details Date Type Department Care Team (Late st Contact Info) Description 09/22/2021 Orders Only [facility] [address] [place] [address] Conversion, Onbase Social History Tobacco Use Types [...] Description 07/26/2025 10:10 AM EDT Office Visit [facility] [address] [facility] [address] [place] [phone] Macario Swanson, DO [address] [facility] [address], [place] [address] [place], [place] [phone] Scheduled Orders Name Type Priority Associated Diagnoses Orde r Schedule OUTSIDE LAB SCAN Lab Ordered: 09/22/2021 documented as of this encounter Visit Diagnoses Not on filedocumented in this encounter Care Teams Cementer Machine Joiner Relationship Specialty Start Date End Date Cholo Nicolas MD [address] [facility] [place] [address] PCP - General 10/18/99 documented as of this encounter
--- OUTSIDE RECORDS SUMMARY | 2025-03-23 10:06 | XMS_ITS | Encounter Summary ---
Author Organization [facility] Address [address] [place] [address] Phone Care Team Providers Care Roll Plugger Machine Operator Name Role Phone Cholo Nicolas MD Primary Care Provider [phone] Encounter Details Date Type Department Care Team (Late st Contact Info) Description 11/14/2023 Scanned Document [facility] [address] [place] [phone] Scanning, Generic Provider Social History Tobacco Use [...] Office Visit [facility] [address] [facility] [place] [address] [place] [phone] Macario Swanson DO [address] [facility] [address], [place] [address] [place] [address] documented as of this encounter Visit Diagnoses Not on filedocumented in this encounter Additional Health Concerns Assessment Noted Time A fall risk assessment has been complete d for the patient 08/11/2023 12:17 PM EDT documented as of this encounter Care Teams Roll Plugger Machine Operator Relationship Specialty Start Date End Date Cholo Nicolas MD [address] [place] [address] PCP - General 10/18/99 documented as of this encounter
--- OUTSIDE RECORDS SUMMARY | 2025-03-23 10:06 | XMS_ITS | Encounter Summary ---
Author Organization [facility] Address [address] [place] [address] Phone Care Team Providers Care Plant Electrician Name Role Phone Cholo Nicolas MD Primary Care Provider [phone] Encounter Details Date Type Department Care Team (Late st Contact Info) Description 05/20/2023 Scanned Document [facility] [address] [place] [address] Conversion, Onbase Social History Tobacco Use Types [...] Description 07/26/2025 10:10 AM EDT Office Visit [place] [facility] [address] [facility] [place] [address] [place] [address] Macario Swanson, DO [address] [facility] [address], [place] [address] [place] [address] documented as of this encounter Procedures Procedure Name Priority Date/Time Associated Diagnosis Comments OUTSIDE GENERIC TESTING 05/20/2023 OUTSIDE GENERIC TESTING 05/20/2023 documented in this encounter Results * OUTSIDE GENERIC TESTING (05/20/2023) Anatomical Region Laterality Modality Other Narrative 05/20/2023 Ordered by an unspecified provider. us Onbase Conversion OUTSIDE SCAN Final Result * OUTSIDE GENERIC TESTING (05/20/2023) Anatomical Region Laterality Modality Other Narrative 05/20/2023 Ordered by an unspecified provider. us Onbase Conversion OUTSIDE SCAN Final Result documented in this encounter Visit Diagnoses Not on filedocumented in this encounter Care Teams Plant Electrician Relationship Specialty Start Date End Date Cholo Nicolas MD [address] [id number] PCP - General 10/18/99 documented as of this encounter
--- OUTSIDE RECORDS SUMMARY | 2025-03-23 10:07 | XMS_ITS | Clinical Summary ---
Author Organization [facility] Address [address] [place] [address] Care Team Providers Care Forestry Supervisor Name Role Phone Unavailable Primary Care Provider Unavailabl e Medications methylPREDNISol one (Medrol Dospak) 4 MG tabletsIndicati ons:Anterior tibialis tendinitis of left lower extremity Take as directed on package. 21 tablet 05/12/2023 Active Social History Tobacco Use Types Packs/Day Years Used Date Smoking Tobacco: Never Assessed Sex and Gender Information Value Date Recorded Sex Assigned at Not on file Legal Sex Male 7:13 PM EDT Gender Identity Not on file Sexual Orientation Not on file Last Filed Vital Signs Vital Sign Reading Time Taken Comments Blood Pressure 114/74 09/04/2019 12:00 PM EST Pulse - - Temperature - - Respiratory Rate - - Oxygen Saturation - - Inhaled Oxygen Concentration - - Weight 99.3 kg (219 lb) 03/19/2022 12:00 PM EDT Height 177.8 cm (5' 10 ) 03/19/2022 12:00 PM EDT Body Mass Index 31.42 03/19/2022 12:00 PM EDT Plan of Treatment Not on file Insurance MEDICARE
--- OUTSIDE RECORDS SUMMARY | 2025-03-23 10:07 | XMS_ITS | Encounter Summary ---
Author Organization [facility] Address [address] [place] [address] Phone Care Team Providers Care Registered Nurse Obstetrics Name Role Phone Cholo Nicolas MD Primary Care Provider [phone] Encounter Details Date Type Department Care Team (Late st Contact Info) Description 01/06/2022 Orders Only [facility] [address] [place] [address] Conversion, Onbase Social History Tobacco Use Types [...] AM EDT Office Visit [facility] [address] [facility] [address] [place] [phone] Macario Swanson, DO [address] [facility] [address], [place] [address] [place], [place] [phone] Scheduled Orders Name Type Priority Associated Diagnoses Orde r Schedule OUTSIDE LAB SCAN Lab Ordered: 01/06/2022 documented as of this encounter Visit Diagnoses Not on filedocumented in this encounter Care Teams Registered Nurse Obstetrics Relationship Specialty Start Date End Date Cholo Nicolas MD [address] [facility] [place] [address] PCP - General 10/18/99 documented as of this encounter
--- OUTSIDE RECORDS SUMMARY | 2025-03-23 10:07 | XMS_ITS | Encounter Summary ---
Author Organization [facility] Address [address] [place] [address] Phone Care Team Providers Care Debt Counselor Name Role Phone Cholo Nicolas MD Primary Care Provider [phone] Encounter Details Date Type Department Care Team (Late st Contact Info) Description 05/07/2022 Orders Only [facility] [address] [place] [address] Conversion, Onbase Social History Tobacco Use Types [...] Description 07/26/2025 10:10 AM EDT Office Visit [facility] [address] [facility] [address] [place] [phone] Macario Swanson, DO [address] [facility] [address], [place] [address] [place], [place] [phone] Scheduled Orders Name Type Priority Associated Diagnoses Orde r Schedule OUTSIDE LAB SCAN Lab Ordered: 05/07/2022 documented as of this encounter Visit Diagnoses Not on filedocumented in this encounter Care Teams Debt Counselor Relationship Specialty Start Date End Date Cholo Nicolas MD [address] [facility] [place] [address] PCP - General 10/18/99 documented as of this encounter
--- OUTSIDE RECORDS SUMMARY | 2025-03-23 10:07 | XMS_ITS | Encounter Summary ---
Author Organization [facility] Address [address] [place] [address] Care Team Providers Care Aligner Barrel And Receiver Name Role Phone Unavailable Primary Care Provider Unavailabl e Encounter Details Date Type Department Care Team (Late st Contact Info) Description 08/05/2023 Abstract [facility] [address] [place] [phone] Wade Segundo, DPM [address] [place], [place] [phone] Social History Tobacco Use Types Packs/Day Years Used Date Smoking Tobacco: Never Assessed Sex and Gender Information Value Date Recorded Sex Assigned at Not on file Legal Sex Male 7:13 PM EDT Gender Identity Not on file Sexual Orientation Not on file documented as of this encounter Plan of Treatment Not on file documented as of this encounter Visit Diagnoses Not on filedocumented in this encounter
--- OUTSIDE RECORDS SUMMARY | 2025-03-23 10:07 | XMS_ITS | Patient Health Record ---
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 Phone Rohit Nicolas Primary Care Provider Joan Andrews [phone] Allergies Allergen (clinical drug ingredient) Drug/Non Drug Allergy documented on EMR Reaction Allergy Type Onset Date Status ciprofloxacin Cipro hives Drug Allergy Act noelle Bee Sting anaphylaxis Allergy Active Penicillin Unknown Drug Allergy Active Results Component Value Reference Range Notes GLYCOHEMOGLOBIN A1C Reviewed date:08/01/2024 05:41:40 PM Interpretation: Performing Lab: Notes/Report: [facility] , Glycohemoglobin A1C 6.2 4.5-6.2 % ADA RECOMMENDED LIMIT 4.0 - 6.0 ADA THERAPEUTIC TARGET < 7.0 ACTION SUGGESTED > 7.0 Estimated Average Glucose 131 Performing Lab: see note - [facility] LB PSA SCREENING Reviewed date:08/01/2024 05:41:40 PM Interpretation: Performing Lab: Notes/Report: [facility] , Prostate Specific Antigen Scrn 0.48 <=4.00 ng/mL Performing Lab: see note ML - [facility] LB INFLUENZA A AND B AG Reviewed date:10/26/2024 08:49:55 PM Interpretation: Performing Lab: Notes/Report: [facility] , Influenza Virus A Antigen Negative Negative for Flu A protein antigen. Infection due to Flu A cannot be ruled out. Flu A antigen in the sample may be below the detection limit of the test. Influenza Virus B Antigen Negative Negative for Flu B protein antigen. Infection due to Flu B cannot be ruled out. Flu B antigen in the sample may be below the detection limit of the test. Performing Lab: see note ML - [facility] LB RSV Reviewed date:10/26/2024 08:49:55 PM Interpretation: Performing Lab: Notes/Report: [facility] , Respiratory Syncytial Virus Not Detected NOT DETECTE Performing Lab: see note ML - [facility] LB UA (CLEAN or CATCH) PIT SLAGMAN or M ICRO IF IND. Reviewed date:10/26/2024 08:49:55 PM Interpretation: Performing Lab: Notes/Report: [facility] , Color Urine LT. YELLOW YELLOW Clarity Urine CLEAR CLEAR Specific Hannacroix Urine 1.010 1.005-1.025 pH Urine 6.0 5.0-9.0 Protein Urine NEGATIVE NEG/TRACE mg/dL Glucose Urine UA NEGATIVE NEGATIVE mg/dL Bilirubin Urine NEGATIVE NEGATIVE Ketones Urine NEGATIVE NEGATIVE mg/dL Blood Urine NEGATIVE NEGATIVE Nitrite Urine NEGATIVE NEGATIVE Urobilinogen Urine 0.2 0.2-1.0 EU/dL Leukocyte Esterase Urine NEGATIVE NEGATIVE Urine Microscopic Indicated NO Performing Lab: see note ML - [facility] LB Prothrombin Time INR Reviewed date:10/26/2024 08:49:55 PM Interpretation: Performing Lab: Notes/Report: [facility] , Prothrombin Time 12.6 9.0-11.6 sec INR 1.21 DESIRED INR: 2.0-3.0 CONDITIONS NOT LISTED BELOW 2.5-3.5 FOR PROSTHETIC HEART VALVE REPLACEMENT 2.5-3.5 RECURRENT THROMBOSIS Performing Lab: see note ML - [facility] LB SARS-CoV-2 Ag* Reviewed date:10/26/2024 08:49:55 PM Interpretation: Performing Lab: Notes/Report: [facility] , SARS-CoV-2 Ag NEGATIVE NEGATIVE This test has not been FDA cleared [...] is terminated or authorization is revoked sooner. Performing Lab: see note ML - [facility] LB XR acute abdomen series Reviewed date:10/26/2024 08:49:55 PM Interpretation: Performing Lab: Notes/Report: Source Facility: [facility] [place] [address] [place] [address] XRay Report Signed Patient: JAY ASH MR#: [id number] : 1935 Acct:[id number] Age/Sex: 89 / M ADM Date: 10/26/24 Loc: ER Attending Dr: Ordering Physician: Charmaine Duran Date of Service: 10/26/24 Procedure(s): XR acute abdomen series Accession Number(s): [id number] cc: Moon Nicolas M.D.; Charmaine Duran [place] [address] Patient Name: JAY ASH MRN: [id number] date: 1935 Sex: M Assigned Patient Location: ER Current Patient Location: ER Accession/Order Number: [id number] Exam Date: 10/26/2024 18:31 Report Date: 10/26/2024 19:45 At the request of: CHARMAINE DURAN Procedure: XR acute abdomen series EXAM: OBSTRUCTION SERIES HISTORY:Weakness, diarrhea COMPARISON:Chest x-ray dated 07/01/2022 TECHNIQUE:Frontal images of the chest and abdomen are submitted. FINDINGS: There is a nonobstructive bowel gas pattern with air and feces identified throughout the colon to the level of the rectum. There is a large stool burden. No suspicious urologic opacifications are appreciated. The cardiomediastinal silhouette is not enlarged. The pulmonary vascularity is within normal limits. There is a cardiac device projecting over the left mid to lower lung field. No acute airspace disease is present in the chest. There is no costophrenic angle blunting. XR/XR acute abdomen series IMPRESSION: Large stool burden. Unremarkable plain film examination of the chest and abdomen otherwise. Electronically authenticated by: JAYE HOLDEN Date: 10/26/2024 19:45 Dictated By: Jaye Holden M.D. Signed By: 10/26/241947 DD/ 44 TD/TT: Bilingual Customer Service: [place] [address] XRay Report Signed Patient: SIN ASH MR#: [id number] : 1935 Acct:[id number] Age/Sex: 89 / M ADM Date: 10/26/24 Loc: ER Attending Dr: Ordering Physician: Charmaine Duran Date of Service: 10/26/24 Procedure(s): XR acu te abdomen series Accession Number(s): [id number] cc: Moon Nicolas M.D. ; Charmaine Duran [place] [address] Patient Name: JAY ASH MRN: [id number] date: 1935 Sex: M Assigned Patient Location: ER Current Patient Loca tion: ER Accession/Order Numb er: [id number] Exam Date: 10/26/2024 18:31 Report Date: 10/26/2024 19:45 At the request of: CHARMAINE DURAN Procedure: XR acute abdomen series EXAM: OBSTRUCTION SERIES HISTORY:Weakness, diarrhea COMPARISON:Chest x-r ay dated 07/01/2022 TECHNIQUE:Frontal im ages of the chest and abdomen are submitted. FINDINGS: There is a nonobstru ctive bowel gas pattern with air and feces identified throughout the colon to the level of the rectum. There is a large stool burden. No suspicious urolog ic opacifications are appreciated. The cardiomediastina l silhouette is not enlarged. The pulmonary vascularity is within normal limits . There is a cardiac device projecting over the left mid to lower lung field. No acute airspace disease is present in the chest. There is no costophrenic angl e blunting. X R/XR acute abdomen series IMPRESSION: Large stool burden. Unremarkable plain film examination of the chest and abdomen otherwise. Electronically authenticated by: JAYE HOLDEN Date: 10/26/2024 19:45 Dictated By: Jaye Holden M.D. Signed By: 10/26/241947 DD/ 44 TD/TT: Bilingual Customer Service: LACTATE or LACTIC ACID Reviewed date:10/29/2024 10:00:33 AM Interpretation: Performing Lab: Notes/Report: [facility] , Lactate/Lactic Acid 1.3 0.4-2.0 mmol/L Performing Lab: see note ML - [facility] LB LIPASE Reviewed date:10/29/2024 10:00:33 AM Interpretation: Performing Lab: Notes/Report: [facility] , Lipase <10.0 16.0-77.0 U/L Performing Lab: see note - [facility] LB PROF 14(COMP METB) Reviewed date:10/29/2024 10:00:33 AM Interpretation: Performing Lab: Notes/Report: [facility] , Sodium 136 136-145 mmol/L Potassium 3.6 3.5-5.1 mmol/L Chloride 101 98-107 mmol/L Carbon Dioxide 26.7 21.0-32.0 mmol/L Anion Gap 11.9 Glucose 112 74-106 mg/dL Blood Urea Nitrogen 18.0 7.0-18.0 mg/dL Creatinine 1.45 0.70-1.30 mg/dL Estimated GFR ( Sabrina 56 >=60 mL/min/1.73m 2 Estimated GFR (Non- Irma 46 >=60 mL/min/1.73m 2 BUN Creatinine Ratio 12.4 Calcium 8.1 8.5-10.1 mg/dL Bilirubin Total 0.9 0.2-1.0 mg/dL Aspartate Amino Transferase 17 15-37 U/L Alanine Aminotransferase 15 16-63 U/L Alkaline Phosphatase 88 46-116 U/L Total Protein 5.5 6.4-8.2 g/dL Albumin Level 2.4 3.4-5.0 g/dL Globulin 3.1 Albumin Globulin Ratio 0.8 Performing Lab: see note ML - [facility] LB UA RANDOM W or MICROSCOPIC Reviewed date:10/29/2024 10:00:33 AM Interpretation: Performing Lab: Notes/Report: [facility] , Color Urine YELLOW YELLOW Clarity Urine CLEAR CLEAR Specific Hannacroix Urine 1.010 1.005-1.025 pH Urine 6.0 5.0-9.0 Protein Urine TRACE NEG/TRACE mg/dL Glucose Urine UA NEGATIVE NEGATIVE mg/dL Bilirubin Urine NEGATIVE NEGATIVE Ketones Urine NEGATIVE NEGATIVE mg/dL Blood Urine NEGATIVE NEGATIVE Nitrite Urine NEGATIVE NEGATIVE Urobilinogen Urine 0.2 0.2-1.0 EU/dL Leukocyte Esterase Urine NEGATIVE NEGATIVE WBC Urine 0-2 NONE SEEN #/HPF RBC Urine 0-2 0-2 #/HPF Bacteria Urine TRACE NONE SEEN #/HPF Mucus Urine TRACE NONE SEEN Squamous Epithelial Cell Urine RARE NONE/RARE #/LPF Crystals Seen? None Seen None Seen #/HPF Cast Seen? SEEN NONE SEEN #/LPF Hyaline Casts Urine FEW Urine Culture Indicated NO Performing Lab: see note ML - [facility] LB Troponin I High Sensitivity Reviewed date:10/29/2024 10:00:33 AM Interpretation: Performing Lab: Notes/Report: [facility] , Troponin I High Sensitivity 24.6 4.0-76.1 pg/mL CUT-OFF POINTS HAVE BEEN ESTABLISHED BASED ON THE FOURTH UNIVERSAL DEFINITION OF MYOCARDIAL INFARCTION. THE UPPER REFERENCE LIMIT (URL) OF TROPONIN, DEFINED THE 99TH PERCENTILE OF cTnI DISTRIBUTION IN A REFERENCE POPULATION, HAS BEEN CONFIRMED THE DECISION THRESHOLD FOR LA DIAGNOSIS. 99TH PERCENTILE = 76.2 PG/ML NOTE: HIGH-SENSITIVITY TROPONIN ASSAY IS NOT INTENDED TO BE USED IN ISOLATION BUT SHOULD BE INTERPRETED IN CONJUNCTION WITH OTHER DIAGNOSTIC AND CLINICAL INFORMATION. Performing Lab: see note - [facility] CBC AUTO DIFF Reviewed date:10/29/2024 10:00:32 AM Interpretation: Performing Lab: Notes/Report: [facility] , White Blood Count 14.3 4.0-11.0 10 3/uL Red Blood Count 3.85 4.70-6.10 10 6/uL Hemoglobin 11.9 14.0-18.0 g/dL Hematocrit 35.4 42.0-54.0 % Mean Corpuscular Volume 91.9 80.0-94.0 fL Mean Corpuscular Hemoglobin 30.9 25.9-34.0 pg Mean Corpuscular HGB Conc 33.6 29.9-35.2 g/dL Red Cell Distribution Width 13.1 11.0-15.0 % Platelet Count 212 150-450 10 3/uL Mean Platelet Volume 10.6 9.5-13.5 fL Performing Lab: see note ML - [facility] LB ECG 12 lead Reviewed date:10/29/2024 10:00:32 AM Interpretation: Performing Lab: Notes/Report: Source Facility: [place] [address] [place] [address] Electrocardiograph Report Signed Patient: JAY ASH MR#: [id number] : 1935 Acct:[id number] Age/Sex: 89 / M ADM Date: 10/26/24 Loc: ER Attending Dr: Ordering Physician: Charmaine Duran Date of Service: 10/26/24 Procedure(s): ECG 12 lead Accession Number(s): [id number] cc: [facility] Test Date: 2024-10-26 Pat Name: JAY NILSA Department: Room: - Gender: Male Awning Finisher: : 1935 Requested By: 0929 Order Number: [id number] Reading MD: JULES MARTINS Measurements Intervals Grover Rate: 84 P: 19 NH: 164 QRS: 52 QRSD: 90 T: 25 QT: 380 QTc: 421 Interpretive Statements 1100 Sinus rhythm 4068 Nonspecific Twave abnormality 9130 borderline ECG Compared to ECG 07/01/2022 17:01:43 T-wave abnormality no longer present Electronically Signed On 10-28-2024 7:53:49 EST by JULES MARTINS Dictated By: Jules Martins D.O. Signed By: 10/28/24 0754 DD/ 1757 TD/TT: Bilingual Customer Service: [place] [address] Electrocardiograph Report Signed Patient: SIN ASH MR#: [id number] : 1935 Acct:[id number] Age/Sex: 89 / M ADM Date: 10/26/24 Loc: ER Attending Dr: Ordering Physician: Charmaine Duran Date of Service: 10/26/24 Procedure(s): ECG 12 lead Accession Number(s): [id number] cc: [facility] Test Date: 2024-10-26 Pat Name: JAY KIMBROUGH Department: 96 Room: - Gender: Male Awning Finisher: : 1935 Requ ested By: 0929 Order Number: [id number] Reading MD: JULES MARTINS Measurements Intervals Grover Rate: 84 P: 19 NH: 164 QRS: 52 QRSD: 90 T: 25 QT: 380 QTc: 421 Interpretive Statements 1100 Sinus rhythm 4068 Nonspecific Twa ve abnormality 9130 borderline ECG Compared to ECG 07/01/2022 17:01:43 T-wave abnormality n o longer present Electronically Vanessa d On 10-28-2024 7:53:49 EST by JULES MARTINS Dictated By: Jules Martins D.O. Signed By: 10/28/24 0754 DD/ 1757 TD/TT: Bilingual Customer Service: Troponin I High Sensitivity Reviewed date:10/26/2024 08:49:55 PM Interpretation: Performing Lab: Notes/Report: [facility] , Troponin I High Sensitivity 24.0 4.0-76.1 pg/mL CUT-OFF POINTS HAVE BEEN ESTABLISHED BASED ON THE FOURTH UNIVERSAL DEFINITION OF MYOCARDIAL INFARCTION. THE UPPER REFERENCE LIMIT (URL) OF TROPONIN, DEFINED THE 99TH PERCENTILE OF cTnI DISTRIBUTION IN A REFERENCE POPULATION, HAS BEEN CONFIRMED THE DECISION THRESHOLD FOR LA DIAGNOSIS. 99TH PERCENTILE = 76.2 PG/ML NOTE: HIGH-SENSITIVITY TROPONIN ASSAY IS NOT INTENDED TO BE USED IN ISOLATION BUT SHOULD BE INTERPRETED IN CONJUNCTION WITH OTHER DIAGNOSTIC AND CLINICAL INFORMATION. Performing Lab: see note ML - [facility] LB Manual Differential Reviewed date:10/26/2024 08:49:55 PM Interpretation: Performing Lab: Notes/Report: [facility] , Segmented Neutrophils % Manual 72.0 43.0-75.0 Lymphocytes Percent Manual 16.0 20.5-60.0 % Monocytes Percent Manual 12.0 1.7-12.0 % Eosinophils Percent Manual 0.0 0.9-7.0 % Basophils Percent Manual 0.0 0.2-2.0 % Segmented Neut Absolute Manual 11.59 1.4-6.5 10 3/uL Lymphocytes Absolute Manual 2.57 1.20-3.80 10 3/uL Monocytes Absolute Manual 1.93 0.30-0.80 10 3/uL Eosinophils Absolute Manual 0.00 0.00-0.70 10 3/uL Basophils Abs Manual 0.00 0.00-0.10 1 0 3/uL Performing Lab: see note ML - [facility] LB PROF 14(COMP METB) Reviewed date:10/26/2024 08:49:55 PM Interpretation: Performing Lab: Notes/Report: [facility] , Sodium 134 136-145 mmol/L Potassium 3.5 3.5-5.1 mmol/L Chloride 100 98-107 mmol/L Carbon Dioxide 23.1 21.0-32.0 mmol/L Anion Gap 14.4 Glucose 130 74-106 mg/dL Blood Urea Nitrogen 22.0 7.0-18.0 mg/dL Creatinine 1.40 0.70-1.30 mg/dL Estimated GFR ( Sabrina 58 >=60 mL/min/1.73m 2 Estimated GFR (Non- Irma 48 >=60 mL/min/1.73m 2 BUN Creatinine Ratio 15.7 Calcium 8.3 8.5-10.1 mg/dL Bilirubin Total 0.9 0.2-1.0 mg/dL Aspartate Amino Transferase 16 15-37 U/L Alanine Aminotransferase 14 16-63 U/L Alkaline Phosphatase 87 46-116 U/L Total Protein 5.8 6.4-8.2 g/dL Albumin Level 2.5 3.4-5.0 g/dL Globulin 3.3 Albumin Globulin Ratio 0.8 Performing Lab: see note ML - [facility] LIPASE Reviewed date:10/26/2024 08:49:55 PM Interpretation: Performing Lab: Notes/Report: [facility] , Lipase 10.0 16.0-77.0 U/L Performing Lab: see note ML - [facility] LB LACTATE or LACTIC ACID Reviewed date:10/26/2024 08:49:55 PM Interpretation: Performing Lab: Notes/Report: [facility] , Lactate/Lactic Acid 1.6 0.4-2.0 mmol/L Performing Lab: see note ML - [facility] CBC AUTO DIFF Reviewed date:10/26/2024 08:49:55 PM Interpretation: Performing Lab: Notes/Report: [facility] , White Blood Count 16.1 4.0-11.0 10 3/uL Red Blood Count 3.94 4.70-6.10 10 6/uL Hemoglobin 12.2 14.0-18.0 g/dL Hematocrit 36.6 42.0-54.0 % Mean Corpuscular Volume 92.9 80.0-94.0 fL Mean Corpuscular Hemoglobin 31.0 25.9-34.0 pg Mean Corpuscular HGB Conc 33.3 29.9-35.2 g/dL Red Cell Distribution Width 13.1 11.0-15.0 % Platelet Count 202 150-450 10 3/uL Mean Platelet Volume 10.9 9.5-13.5 fL Performing Lab: see note ML - [facility] LB BNP Reviewed date:10/26/2024 08:49:55 PM Interpretation: Performing Lab: Notes/Report: [facility] , NT Pro B Type Natriuretic Pept 815.0 <=1800.0 pg/mL Performing Lab: see note ML - [facility] LB US right upper quadrant Reviewed date:08/03/2024 12:57:51 PM Interpretation: Performing Lab: Notes/Report: Source Facility: [place] [address] Ultrasound Report Signed Patient: JAY ASH MR#: [id number] : 1935 Acct:[id number] Age/Sex: 89 / M ADM Date: 08/01/24 Loc: US Attending Dr: Moon Nicolas M.D. Ordering Physician: Moon Nicolas M.D. Date of Service: 08/01/24 Procedure(s): US right upper quadrant Accession Number(s): [id number] cc: Moon Nicolas M.D. [place] [address] Patient Name: JAY ASH MRN: [id number] date: 1935 Sex: M Assigned Patient Location: US Current Patient Location: Accession/Order Number: [id number] Exam Date: 08/01/2024 08:40 Report Date: 08/02/2024 07:27 At the request of: MOON NICOLAS Procedure: US right upper quadrant EXAM: US right upper quadrant HISTORY: Right Upper Quadrant Abdominal Pain COMPARISON: None. TECHNIQUE: Grayscale and color FINDINGS: The liver is normal in size, contour and echotexture measuring 15.6 cm in length. No focal hepatic mass. Hepatopedal flow in the main portal vein with velocity of 29 cm/s. The gallbladder is normal in size. The wall measures 1.9 mm. Common bile duct measures 1.6 mm. Negative sonographic Mcgee sign. The pancreas is poorly visualized The right kidney is normal measuring 9.8 x 4.8 x 4.9 cm US/US right upper quadrant IMPRESSION: No acute abnormality Electronically authenticated by: SABI PAZ Date: 08/02/2024 07:27 Dictated By: Sabi Paz M.D. Signed By: 08/02/24729 DD/ 6 TD/TT: Bilingual Customer Service: [place] [address] Ultrasound Report Signed Patient: SIN ASH MR#: [id number] : 1935 Acct:[id number] Age/Sex: 89 / M ADM Date: 08/01/24 Loc: US Attending Dr: Jak Nicolas M.D. Ordering Physician: Moon Nicolas M.D. Date of Service: 08/01/24 Procedure(s): US rig ht upper quadrant Accession Number(s): [id number] cc: Moon Nicolas M.D. [place] [id number] Patient Name: JAY ASH MRN: [id number] date: 1935 Sex: M Assigned Patient Location: Current Patient Location: Accession/Order Numb er: [id number] Exam Date: 08:40 Report Date: 08/02/2024 07:27 At the request of: MOON NICOLAS Procedure: US right upper quadrant EXAM: US right upper quadrant HISTORY: Right Upper Quadrant Abdominal Pain COMPARISON: None. TECHNIQUE: Grayscale and color FINDINGS: The liver is normal in size, contour and echotexture measuring 15.6 cm in length. No focal hep atic mass. Hepatopedal flow in the main portal vein with velocity of 29 cm/s. The gallbladder is n ormal in size. The wall measures 1.9 mm. Common bile duct measures 1.6 mm. Neg ative sonographic Mcgee sign. The pancreas is poor ly visualized The right kidney is normal measuring 9.8 x 4.8 x 4.9 cm U S/US right upper quadrant IMPRESSION: No acute abnormality Electronically authenticated by: SABI PAZ Date: 08/02/2024 07:27 Dictated By: Hima Paz M.D. Signed By: 08/02/24729 DD/ 6 TD/TT: Bilingual Customer Service: [facility] Reviewed date:08/01/2024 05:41:40 PM Interpretation: Performing Lab: Notes/Report: [facility] , Thyroid Stimulating Hormone 3.735 0.358-3.740 uIU/mL Performing Lab: see note ML - [facility] LB T4 Reviewed date:08/01/2024 05:41:40 PM Interpretation: Performing Lab: Notes/Report: [facility] , T4 Thyroxine 6.40 4.50-12.10 ug/dL Performing Lab: see note ML - [facility] LB PROF 14(COMP METB) Reviewed date:08/01/2024 05:41:40 PM Interpretation: Performing Lab: Notes/Report: [facility] , Sodium 141 136-145 mmol/L Potassium 4.1 3.5-5.1 mmol/L Chloride 106 98-107 mmol/L Carbon Dioxide 21.9 21.0-32.0 mmol/L Anion Gap 17.2 Glucose 124 74-106 mg/dL Blood Urea Nitrogen 16.0 7.0-18.0 mg/dL Creatinine 1.33 0.70-1.30 mg/dL Estimated GFR ( Sabrina >60 >=60 mL/min/1.73m 2 Estimated GFR (Non- Irma 51 >=60 mL/min/1.73m 2 BUN Creatinine Ratio 12.0 Calcium 9.1 8.5-10.1 mg/dL Bilirubin Total 0.9 0.2-1.0 mg/dL Aspartate Amino Transferase 15 15-37 U/L Alanine Aminotransferase 21 16-63 U/L Alkaline Phosphatase 86 46-116 U/L Total Protein 6.4 6.4-8.2 g/dL Albumin Level 3.4 3.4-5.0 g/dL Globulin 3.0 Albumin Globulin Ratio 1.1 Performing Lab: see note ML - [facility] LB LIPID PROFILE Reviewed date:08/01/2024 05:41:40 PM Interpretation: Performing Lab: Notes/Report: [facility] , Triglycerides 65 <=150 mg/dL Cholesterol 120 <=200 mg/dL HDL Cholesterol 70 40-60 mg/dL > or =60 mg/dl - LOW CARDIOVASCULAR RISK <40 mg/dl - HIGH CARDIOVASCULAR RISK LDL Cholesterol Calculated 37.0 <100 mg/dl OPTIMAL 100-129 mg/dl NEAR OR ABOVE OPTIMAL 130-159 mg/dl BORDERLINE HIGH 160-189 mg/dl HIGH >190 mg/dl VERY HIGH VLDL CHOLESTEROL 13.0 Chol HDL Ratio 1.7 3.3 - 4.4 LOW RISK 4.4 - 7.1 AVERAGE RISK 7.1 - 11.0 MODERATE RISK >11.0 HIGH RISK Performing Lab: see note ML - [facility] LB FREE T3 Reviewed date:08/01/2024 05:41:40 PM Interpretation: Performing Lab: Notes/Report: [facility] , Free T3 2.18 2.18-3.98 pg/mL Performing Lab: see note ML - [facility] LB CBC AUTO DIFF Reviewed date:08/01/2024 05:41:40 PM Interpretation: Performing Lab: Notes/Report: [facility] , White Blood Count 8.0 4.0-11.0 10 3/uL Red Blood Count 4.68 4.70-6.10 10 6/uL Hemoglobin 14.1 14.0-18.0 g/dL Hematocrit 43.0 42.0-54.0 % Mean Corpuscular Volume 91.9 80.0-94.0 fL Mean Corpuscular Hemoglobin 30.1 25.9-34.0 pg Mean Corpuscular HGB Conc 32.8 29.9-35.2 g/dL Red Cell Distribution Width 13.4 11.0-15.0 % Platelet Count 218 150-450 10 3/uL Mean Platelet Volume 10.5 9.5-13.5 fL Neutrophils Percent Auto 53.1 43.0-75.0 % Lymphocytes Percent Auto 34.2 20.5-60.0 % Monocytes Percent Auto 7.5 1.7-12.0 % Eosinophils Percent Auto 3.9 0.9-7.0 % Basophils Percent Auto 1.2 0.2-2.0 % Immature Granulocytes Pct Auto 0.1 0.0-0.5 % Neutrophils Absolute Auto 4.3 1.4-6.5 10 3/uL Lymphocytes Absolute Auto 2.8 1.2-3.8 10 3/uL Monocytes Absolute Auto 0.6 0.3-0.8 10 3/uL Eosinophils Absolute Auto 0.3 0.0-0.7 10 3/uL Basophils Absolute Auto 0.1 0.0-0.1 10 3/uL Immature Granulocytes Abs Auto 0.01 0.00-0.03 10 3/uL Performing Lab: see note ML - [facility] LB CT cervical spine wo con Reviewed date:03/30/2024 08:05:20 PM Interpretation: Performing Lab: Notes/Report: Source Facility: [place] [address] CT Scan Report Signed Patient: JAY ASH MR#: [id number] : 1935 Acct:[id number] Age/Sex: 89 / M ADM Date: 03/30/24 Loc: ER Attending Dr: Ordering Physician: Charmaine Duran Date of Service: 03/30/24 Procedure(s): CT cervical spine wo con Accession Number(s): [id number] cc: Moon Nicolas M.D. [place] [address] Patient Name: JAY ASH MRN: [id number] date: 1935 Sex: M Assigned Patient Location: ER Current Patient Location: ER Accession/Order Number: [id number] Exam Date: 03/30/2024 17:58 Report Date: 03/30/2024 19:21 At the request of: CHARMAINE DURAN Procedure: CT cervical spine wo con HEAD and cervical spine CT without contrast, 03/30/2024 5:58 PM EDT: CLINICAL HISTORY: Fall, head injury. COMPARISON: None available. TECHNIQUE: Axial noncontrast CT imaging of the head and cervical spine was performed. Additional reformatted sagittal and coronal projections were also obtained. Dose reduction techniques were achieved by using automated exposure control and/or adjustment of mA and/or kV according to patient size and/or use of iterative reconstruction technique. FINDINGS: Head CT Ventricular and sulcal size is normal for the patient's age. No areas of abnormal attenuation are identified. There is no mass effect, midline shift or intracranial hemorrhage. There is no evidence of acute infarction. There are no extra axial fluid collections. Visualized paranasal sinuses, mastoid air cells and orbital contents are unremarkable. Cervical spine CT Bones are diffusely demineralized. There is no acute fracture or subluxation. 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 Remaining disc spaces are well-maintained. Moderate facet arthropathy is seen at most levels bilaterally. Atlantoaxial articulation is well-maintained. There is no prevertebral soft tissue swelling. Lung apices are clear. There are significant vascular calcifications. CT/CT cervical spine wo con IMPRESSION: 1. No acute intracranial abnormality identified. 2. Degenerative changes of the cervical spine as detailed above, no acute osseous abnormality. Electronically authenticated by: SARAH GILBERT Date: 03/30/2024 19:21 Dictated By: Nedra Gilbert M.D. Signed By: 03/30/241922 DD/ 20 TD/TT: Bilingual Customer Service: [place] [address] CT Scan Report Signed Patient: SIN ASH MR#: [id number] : 1935 Acct:[id number] Age/Sex: 89 / M ADM Date: 03/30/24 Loc: ER Attending Dr: Ordering Physician: Charmaine Duran Date of Service: 03/30/24 Procedure(s): CT cer vical spine wo con Accession Number(s): [id number] cc: Moon Nicolas M.D. [place] [id number] Patient Name: JAY ASH MRN: [id number] date: 1935 Sex: M Assigned Patient Location: ER Current Patient Loca tion: ER Accession/Order Numb er: [id number] Exam Date: 03/30/2024 17:58 Report Date: 03/30/2024 19:21 At the request of: CHARMAINE DURAN Procedure: CT cervic al spine wo con HEAD and cervical sp ine CT without contrast, 03/30/2024 5:58 PM EDT: CLINICAL HISTORY: Fa ll, head injury. COMPARISON: None available. TECHNIQUE: Axial noncontrast CT imaging of the head and cervical spine was performed. Additiona l reformatted sagittal and coronal projections were also obtained. Dose reduc tion techniques were achieved by using automated exposure control and/or adjus tment of mA and/or kV according to patient size and/or use of iterative reconstruction technique. FINDINGS: Head CT Ventricular and sulc al size is normal for the patient's age. No areas of abnormal attenuation are identified. There is no mass effect, midline shift or intracranial hemorrh age. There is no evidence of acute infarction. There are no extra axial fluid collections. Visualized paranasal sinuses, mastoid air cells and orbital contents are unremarkable. Cervical spine CT Bones are diffusely demineralized. There is no acute fracture or subluxation. 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 Remaining disc spaces are well-maintained. Moderate facet arthropathy is seen at most levels bilaterally. Atlanto axial articulation is well-maintained. There is no prevertebral soft ti ssue swelling. Lung apices are clear. There are significant vascular calcifications. C T/CT cervical spine wo con IMPRESSION: 1. No acute intracra nial abnormality identified. 2. Degenerative gann ges of the cervical spine as detailed above, no acute osseous abnormality. Electronically authenticated by: SARAH GILBERT Date: 03/30/2024 19:21 Dictated By: Giovani Gilbert M.D. Signed By: 03/30/241922 DD/ 20 TD/TT: Bilingual Customer Service: CT head/brain wo con Reviewed date:03/30/2024 08:05:20 PM Interpretation: Performing Lab: Notes/Report: Source Facility: [facility]-[address] [place] [address] [place] [address] CT Scan Report Signed Patient: JAY ASH MR#: [id number] : 1935 Acct:[id number] Age/Sex: 89 / M ADM Date: 03/30/24 Loc: ER Attending Dr: Ordering Physician: Charmaine Duran Date of Service: 03/30/24 Procedure(s): CT head/brain wo con Accession Number(s): [id number] cc: Moon Nicolas M.D. [place] [address] Patient Name: JAY ASH MRN: [id number] date: 1935 Sex: M Assigned Patient Location: ER Current Patient Location: ER Accession/Order Number: [id number] Exam Date: 03/30/2024 17:58 Report Date: 03/30/2024 19:21 At the request of: CHARMAINE DURAN Procedure: CT head/brain wo con HEAD and cervical spine CT without contrast, 03/30/2024 5:58 PM EDT: CLINICAL HISTORY: Fall, head injury. COMPARISON: None available. TECHNIQUE: Axial noncontrast CT imaging of the head and cervical spine was performed. Additional reformatted sagittal and coronal projections were also obtained. Dose reduction techniques were achieved by using automated exposure control and/or adjustment of mA and/or kV according to patient size and/or use of iterative reconstruction technique. FINDINGS: Head CT Ventricular and sulcal size is normal for the patient's age. No areas of abnormal attenuation are identified. There is no mass effect, midline shift or intracranial hemorrhage. There is no evidence of acute infarction. There are no extra axial fluid collections. Visualized paranasal sinuses, mastoid air cells and orbital contents are unremarkable. Cervical spine CT Bones are diffusely demineralized. There is no acute fracture or subluxation. 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 Remaining disc spaces are well-maintained. Moderate facet arthropathy is seen at most levels bilaterally. Atlantoaxial articulation is well-maintained. There is no prevertebral soft tissue swelling. Lung apices are clear. There are significant vascular calcifications. CT/CT head/brain wo con IMPRESSION: 1. No acute intracranial abnormality identified. 2. Degenerative changes of the cervical spine as detailed above, no acute osseous abnormality. Electronically authenticated by: SARAH GILBERT Date: 03/30/2024 19:21 Dictated By: Nedar Gilbert M.D. Signed By: 03/30/241923 DD/ 20 TD/TT: Bilingual Customer Service: [address] [address] [address] Scan Report Signed Patient: SIN ASH MR#: [id number] : 1935 Acct:[id number] Age/Sex: 89 / M ADM Date: 03/30/24 Loc: ER Attending Dr: Ordering Physician: Charmaine Duran Date of Service: 03/30/24 Procedure(s): CT head/brain wo con Accession Number(s): [id number] cc: Moon Nicolas M.D. [address] [address] Patient Name: JAY ASH MRN: [id number] date: 1935 Sex: M Assigned Patient Location: ER Current Patient Loca tion: ER Accession/Order Numb er: [id number] Exam Date: 03/30/2024 17:58 Report Date: 03/30/2024 19:21 At the request of: CHARMAINE DURAN Procedure: CT head/b rain wo con HEAD and cervical sp ine CT without contrast, 03/30/2024 5:58 PM EDT: CLINICAL HISTORY: Fa ll, head injury. COMPARISON: None available. TECHNIQUE: Axial noncontrast CT imaging of the head and cervical spine was performed. Additiona l reformatted sagittal and coronal projections were also obtained. Dose reduc tion techniques were achieved by using automated exposure control and/or adjus tment of mA and/or kV according to patient size and/or use of iterative reconstruction technique. FINDINGS: Head CT Ventricular and sulc al size is normal for the patient's age. No areas of abnormal attenuation are identified. There is no mass effect, midline shift or intracranial hemorrh age. There is no evidence of acute infarction. There are no extra axial fluid collections. Visualized paranasal sinuses, mastoid air cells and orbital contents are unremarkable. Cervical spine CT Bones are diffusely demineralized. There is no acute fracture or subluxation. 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 Remaining disc spaces are well-maintained. Moderate facet arthropathy is seen at most levels bilaterally. Atlanto axial articulation is well-maintained. There is no prevertebral soft ti ssue swelling. Lung apices are clear. There are significant vascular calcifications. C T/CT head/brain wo con IMPRESSION: 1. No acute intracra nial abnormality identified. 2. Degenerative gann ges of the cervical spine as detailed above, no acute osseous abnormality. Electronically authenticated by: SARAH GILBERT Date: 03/30/2024 19:21 Dictated By: Giovani Gilbert M.D. Signed By: 03/30/241923 DD/ 20 TD/TT: Bilingual Customer Service: Mikey Differential Reviewed date:10/29/2024 10:00:33 AM Interpretation: Performing Lab: Notes/Report: [facility] , Segmented Neutrophils % Manual 70.0 43.0-75.0 Lymphocytes Percent Manual 15.0 20.5-60.0 % Monocytes Percent Manual 13.0 1.7-12.0 % Eosinophils Percent Manual 1.0 0.9-7.0 % Basophils Percent Manual 1.0 0.2-2.0 % Segmented Neut Absolute Manual 10.01 1.4-6.5 10 3/uL Lymphocytes Absolute Manual 2.14 1.20-3.80 10 3/uL Monocytes Absolute Manual 1.85 0.30-0.80 10 3/uL Eosinophils Absolute Manual 0.14 0.00-0.70 10 3/uL Basophils Abs Manual 0.14 0.00-0.10 1 0 3/uL Performing Lab: see note ML - [facility] Reason For Referral No Information Medications Medication SIG (Take, Route, Frequency, Duration) Notes Start Date End Date Status EpiPen 2-To 0.3 MG/0.3ML as directed Injection Active Acidophilus Active Fluocinolone Acetonide 0.025 % 1 application Externally Twice a day for 30 days 02/17/2023 Active Diclofenac Sodium 1 % as directed Externally Active Dicyclomine HCl 20 MG 1 tablet Orally Once Daily Patient taking every other day Active ALPRAZolam 0.25 MG 1 tablet Orally q6h for 14 days 11/22/2024 Active Aspirin 81 81 MG 1 tablet Orally Once a day Active Metoprolol Succinate 25 MG 1/2 Orally Once a day Active Atorvastatin Calcium 40 MG 1 tablet Orally Once a day Active Nitroglycerin 0.4 MG 1 sl Sublingual Q 5 min as needed for chest pain PRN 11/16/2024 Active Lasix 20 MG 1 tablet Orally Once a day Active Cetirizine HCl 10 MG 1 tablet Orally Onc e a day Active Valsartan 320 MG 1 tablet Orally Once a day for 14 days Active Cyanocobalamin 1000 MCG/ML INJECT 1 ml INTRAMUSCULARLY once a month for 30 Active Vitamin D3 50 MCG (1999) TAKE 1 CAPSULE BY MOUTH DAILY for 90 Active Azithromycin 250 MG as directed Orally daily for 5 days take 2 tablets po on first day than 1 tablet po days 2-5 03/16/2025 Active BD Plastipak Syringe 21G X 1 3 ML Administer 1 syringe as directed once a month for 90 Active Protonix 40 MG 1 tablet Orally bid for 30 days 02/17/2023 Active CeleBREX 200 MG 1 capsule Orally Onc e a day Active Sucralfate 1 GM TAKE 1 TABLET BY MILY TH ON AN EMPTY STOMACH FOUR TIMES DAILY for 30 Active Immunizations Vaccine Route Administration Date Status Comme nts Flu, Fluad (0890-9094) (96463) 65 yrs+, single-dose syringe IM Intramuscular 07/14/2023 Administered Flu, Fluad (72058) 65 yrs and older, single-dose syringe IM Intramuscular 07/26/2024 Administered Social History Tobacco Use: Social History Observation Description Date Details (start date - stop date) Former Smoker NA - NA Tobacco Use/Smoking Question Answer Notes Patient is a former smoker Alcohol Screen (Audit-C) Question Answer Notes Did you have a drink containing alcohol in the p ast year? No Points 0 Interpretation Negative AUDIT-C (Standard) Question Answer Notes Did you have a drink containing alcohol in the p ast year? No Points 0 Interpretation Negative Problems Problem Type SNOMED Code ICD Code Onset Dates Problem Status W/U Status Risk Notes Problem Mixed hyperlipidemia (298958948) Mixed hyperlipidemia (E78.2) Active confirmed Problem STEMI - ST elevation myocardial infarction (638219378) ST elevation (STEMI) myocardial infarction of unspecified site (I21.3) Active confirmed Problem Heart block (697262728) Other specified heart block (I45.5) Active confirmed Problem Coronary artery disease (69943673) CAD (coronary artery disease) (I25.10) Active confirmed Problem Anxiety (55869640) Anxiety (F41.9) Active confi rmed Problem Restless legs syndrome (68186665) Restless leg syndrome (G25.81) Active confirmed Problem Essential hypertension (60998607) Essential hypertension (I10) Active confirmed Problem Hiatal hernia (96223986) Hiatal hernia (K44.9) Active confirmed Problem Diverticular disease of colon (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) Diverticulosis (K57.90) Active confirmed Problem Sinusitis (19770409) Sinusitis (J32.9) Active c onfirmed Problem Acute bronchitis (07422197) Acute bronchitis (J20.9) Active confirmed Problem Acquired spondylolisthesis (651416892) Lumbar spondylolysis (M43.06) Active confirmed Problem Degenerative disc disease (35408920) DDD (degenerative disc disease), lumbar (M51.36) Active confirmed Problem Hemorrhoids (70879151) Hemorrhoids (K64.9) Active confirmed Problem Near syncope (850758700) Near syncope (R55) Active confirmed Problem Seasonal allergic rhinitis (931638083) Allergic rhinitis, seasonal (J30.2) Active confirmed Problem Atrial fibrillation (44542285) AF (atrial fibrillation) (I48.91) Active confirmed Problem Irritable bowel (16821752) Irritable bowel (K58.9) Active confirmed Problem History of alcoholism (649025481) History of alcoholism (F10.21) Active confirmed Problem Schatzki's ring (66844368) Schatzki's ring (K22.2) Active confirmed Problem Mastoiditis (98221374) Mastoiditis (H70.90) Active confirmed Problem Gastro-esophageal reflux disease (708273268) Gastro-esophageal reflux disease (K21.9) Active confirmed Problem Benign prostatic hypertrophy without outflow obstruction (527767000) Benign hypertrophy of prostate (N40.0) Active confirmed Problem Low back pain (360144753) Low back pain, unspecified (M54.50) Active confirmed Problem Low back pain (finding) (047126555) Other low back pain (M54.59) Active confirmed Vital Signs Heart Rate 73 /min 03/16/2025 Temperature 98.5 degrees Fahrenheit 03/16/2025 Oximetry 97 % 03/16/2025 Blood pressure diastolic 66 mm Hg 03/16/2025 Height 71 in 03/16/2025 Blood pressure systolic 138 mm Hg 03/16/2025 Weight 224.8 lbs 03/16/2025 BMI 31.35 kg/m2 03/16/2025 Encounters Encounter Location Date Provider Diagnosis [facility] [address] [place] [address] 03/22/2025 Rohit Nicolas CAD (coronary artery disease) I25.10 ; Essential hypertension I10 ; AF (atrial fibrillation) I48.91 ; Sinusitis J32.9 and Cough R05.9 [facility] [address] [place] [address] 11/13/2024 [facility] [address] [place] [address] 11/13/2024 Rohit [facility] [address] [place] [address] 11/15/2024 Rohit [facility] [address] [place] [address] 11/16/[address] [facility] [address] [place] [address] 11/16/2024 Rohit [facility] [address] [place] [address] 11/20/2024 Rohit [facility] [address] [place] [address] 06/21/2024 Rohit [facility] [address] [place] [address] 07/28/2024 Rohit Hoy Right upper quadrant abdominal pain of unknown etiology R10.11 [facility] [address] [place] [address] 08/01/2024 Rohit Hoy Right upper quadrant abdominal pain of unknown etiology R10.11 [facility] [address] [place] [address] 08/03/[address] [facility] [address] [place] [facility] [place] [address] 08/22/2024 Rohit Nicolas [facility] [address] [place] [address] 10/27/2024 Rohit Nicolas [facility] [address] [place] [facility] [place] [place] [address] 06/15/2024 Rohit Nicolas [facility] [address] [place] [address] 07/26/2024 Rohit Nicolas Encounter for immunization Z23 ; Right upper quadrant abdominal pain of unknown etiology R10.11 and Epigastric pain R10.13 [facility] [address] [place] [address] 10/25/2024 Rohit Parrishy Gastroenteritis K52. 9 and Essential hypertension I10 [facility] [address] [place] [facility] [place] [place] [address] 11/01/2024 Rohit Hoy Gastroenteritis K52. 9 [facility] [address] [place] [place] [place] [address] 11/22/2024 Rohit Nicolas Essential hypertensi on I10 ; CAD (coronary artery disease) I25.10 and Anxiety F41.9 [place] [address] [place] [address] 03/16/2025 Joan Andrews Sinusitis J32.9 Assessments Encounter Date Diagnosis (ICD Code) Assessment Notes Treatment Notes Treatment Clinical Notes Section Notes 03/16/2025 Sinusitis (ICD-10 - J32.9) rest push fluids fu if not improving, sx change 07/28/2024 Right upper quadrant abdominal pain of unknown etiology (ICD-10 - R10.11) 08/01/2024 Right upper quadrant abdominal pain of unknown etiology (ICD-10 - R10.11) 03/22/2025 CAD (coronary artery disease) (ICD-10 - I25.10) 03/22/2025 Essential hypertension (ICD-10 - I10) 10/25/2024 Gastroenteritis (ICD-10 - K52.9) Get plenty of rest. Stay hydrated by sucking on ice chips or taking small sips of water. You can also try drinking clear soda, clear broths or noncaffeinated sports drinks. Stop eating solid foods for a few hours to let your stomach settle. East back into eating by eating bland, spuq-sa-xhjern foods like crackers, toast, gelatin, bananas, rice and chicken. Try to avoid foods/substances including dairy products, caffeine, alcohol, nicotine and fatty or highly seasoned foods. Medications such as ibuprofen or tylenol can make your stomach more upset, so use sparingly if at all. Also avoid zbas-xml-lzbthpk anti-diarrheal medications because it can make it harder for your body to eliminate the virus. 10/25/2024 Essential hypertension (ICD-10 - I10) 11/01/2024 Gastroenteritis (ICD-10 - K52.9) Get plenty of rest. Stay hydrated by sucking on ice chips or taking small sips of water. You can also try drinking clear soda, clear broths or noncaffeinated sports drinks. Stop eating solid foods for a few hours to let your stomach settle. East back into eating by eating bland, yawt-aq-wrbuwc foods like crackers, toast, gelatin, bananas, rice and chicken. Try to avoid foods/substances including dairy products, caffeine, alcohol, nicotine and fatty or highly seasoned foods. Medications such as ibuprofen or tylenol can make your stomach more upset, so use sparingly if at all. Also avoid qvwj-rhg-lqedukx anti-diarrheal medications because it can make it harder for your body to eliminate the virus. 11/22/2024 Essential hypertension (ICD-10 - I10) 11/22/2024 CAD (coronary artery disease) (ICD-10 - I25.10) 07/26/2024 Encounter for immunization (ICD-10 - Z23) 07/26/2024 Right upper quadrant abdominal pain of unknown etiology (ICD-10 - R10.11) 07/26/2024 Epigastric pain (ICD-10 - R10.13) 11/22/2024 Anxiety (ICD-10 - F41.9) 03/22/2025 AF (atrial fibrillation) (ICD-10 - I48.91) 03/22/2025 Sinusitis (ICD-10 - J32.9) 03/22/2025 Cough (ICD-10 - R05.9) Plan Of Treatment Pending Test Test Name Order Date CMP (COMPLETE METABOLIC PANEL) 4 CULTURE, STOOL 11/01/2024 HEMOGLOBIN A1C (GLYCO) 10/25/2024 HEMOGLOBIN A1C (GLYCO) 2024 IRON, TOTAL 10/25/2024 LIPID PANEL (CHOL/TRIG/HDL/LDL) 03/07/20 24 CBC WITH DIFF 2024 CBC WITH DIFF 10/25/2024 PSA, PROSTATE-SPECIFIC ANTIGEN 4 VITAMIN D, 25 LEVEL (TOTAL) 10/25/2024 C DIFF TOX PCR STOOL 11/01/2024 BNP 03/22/2025 CBC AUTO DIFF 03/22/2025 PROF 14(COMP METB) 03/22/2025 US ABD 07/26/2024 THYROID PANEL (T4/TSH/FREE T3) 4 THYROID PANEL (T4/TSH/FREE T3) 5 ECHOCARDIO M/2D COMPLETE 11/04/2023 XR chest 2V 03/22/2025 Gram Stain w/Sputum Cult Rflx 03/22/2025 Insurance Providers Payer Name Payer Address Payer Phone Subscriber Number Group Number Insured Name Patient Relationship to Insured Coverage Start Date Coverage End Date [place] [address] [place] [address] [id number] Jay Ash Self - patient is the insured [facility] [address] [place] [address] [id number] NilsaJay Self - patient is the insured [facility] [employer] [address] [place] [address] [phone] [id number] Jay Ash Self - patient is the insured Medical (General) History Medical History History ICD Code Acute bronchitis J20.9 Lumbar spondylolysis M43.06 DDD (degenerative disc disease), lumbar M51.36 Other low back pain M54.59 Mixed hyperlipidemia E78.2 AF (atrial fibrillation) I48.91 CAD (coronary artery disease) I25.10 Mastoiditis H70.90 Benign hypertrophy of prostate N40.0 ST elevation (STEMI) myocardial infarcti on of unspecified site I21.3 Other specified heart block I45.5 Low back pain, unspecified M54.50 Near syncope R55 Hemorrhoids K64.9 Diverticulosis K57.90 Schatzki's ring K22.2 Hiatal hernia K44.9 Allergic rhinitis, seasonal J30.2 Gastro-esophageal reflux disease K21.9 Essential hypertension I10 History of alcoholism F10.21 Surgical History Surgery Date(Month/Year) Stent Placement Dr Sparrow- [facility]- ([facility]) 04/11/2022 EGD/Colon 2018 Hospitalization History Reason Date(Month/Year) Chest Pain 10/2024 chest pain 2021
--- NOTE | 2025-03-23 10:29 | XR_ITS ---
[facility] [place] [id number] Patient Name: JAY ASH MRN: [id number] date: 1935 Sex: M Assigned Patient Location: LAB Current Patient Location: LAB Accession/Order Number: [id number] Exam Date: 03/23/2025 11:11 Report Date: 03/23/2025 11:12 At the request of: MOON HARPER MD Procedure: XR chest 2V PA AND LATERAL CHEST: CLINICAL HISTORY: Cough COMPARISON: 07/01/2022 There is a loop recorder overlying left heart border. There is no focal parenchymal consolidation, effusion or pneumothorax. The cardiac, hilar and mediastinal silhouettes are within normal limits. There is no vascular congestion. The visualized bony thorax is intact. Mild degenerative changes are seen at the spine. XR/XR chest 2V IMPRESSION: NO ACUTE CARDIOPULMONARY ABNORMALITY. Impression dictated by: Sandra Worley M.D. 03/23/2025 11:12 AM Dictation Location: [place] [address] Electronically authenticated by: [id number] Date: 03/23/2025 11:12
[2025-03-23 10:54] LABS: Basophils Absolute Auto 0.1 10^3/uL (0.0-0.1); Basophils Percent Auto 0.8 % (0.2-2.0); Eosinophils Absolute Auto 0.3 10^3/uL (0.0-0.7); Hematocrit 37.6 % (42.0-54.0); Hemoglobin 12.6 g/dL (14.0-18.0); Immature Granulocytes Abs Auto 0.02 10^3/uL (0.00-0.03); Immature Granulocytes Pct Auto 0.2 % (0.0-0.5); Lymphocytes Percent Auto 35.8 % (20.5-60.0); Mean Corpuscular HGB Conc 33.5 g/dL (29.9-35.2); Mean Corpuscular Hemoglobin 29.9 pg (25.9-34.0); Mean Corpuscular Volume 89.3 fL (80.0-94.0); Mean Platelet Volume 10.4 fL (9.5-13.5); Monocytes Absolute Auto 0.7 10^3/uL (0.3-0.8); Monocytes Percent Auto 8.1 % (1.7-12.0); Neutrophils Absolute Auto 4.4 10^3/uL (1.4-6.5); Neutrophils Percent Auto 52.1 % (43.0-75.0); Platelet Count 249 10^3/uL (150-450); Red Blood Count 4.21 10^6/uL (4.70-6.10); Red Cell Distribution Width 13.8 % (11.0-15.0); White Blood Count 8.4 10^3/uL (4.0-11.0)
[2025-03-23 11:18] LABS: Alanine Aminotransferase 26 U/L (16-63); Albumin Globulin Ratio 0.9; Albumin Level 3.2 g/dL (3.4-5.0); Alkaline Phosphatase 116 U/L (46-116); Anion Gap 13.4; Aspartate Amino Transferase 17 U/L (15-37); BUN Creatinine Ratio 15.2; Bilirubin Total 0.6 mg/dL (0.2-1.0); Calcium 9.1 mg/dL (8.5-10.1); Carbon Dioxide 25.7 mmol/L (21.0-32.0); Chloride 103 mmol/L (98-107); Estimated GFR (African America >60 (>=60 mL/min/1.73m^2); Estimated GFR (Non-African Ame >60 (>=60 mL/min/1.73m^2); Globulin 3.4 g/dL; Glucose 148 mg/dL (74-106); Potassium 4.1 mmol/L (3.5-5.1); Sodium 138 mmol/L (136-145); Total Protein 6.6 g/dL (6.4-8.2)
== END 2025-03-23 10:02 | disposition home or self-care (01) ==
LOC: LAB 10:03
PROVIDERS: PCP Family Medicine; Visit Provider Family Medicine
DX: I25.10 Atherosclerotic heart disease of native coronary artery without angina pectoris (principal); I10 Essential (primary) hypertension; I48.91 Unspecified atrial fibrillation; J32.9 Chronic sinusitis, unspecified; R05.9 Cough, unspecified
CPT/HCPCS: 36415; 71046; 80053; 83880; 85025